=== PATIENT | female | born 1960 | race Caucasian/White ===

== ENCOUNTER 2019-12-22 14:20 | Observation (INO) | payer OTHER, SELFPAY ==
[2019-12-22] VITALS (8 sets, daily range): BP systolic 120–142; BP diastolic 60–91; PULSE 63–74; RESP 16–18; TEMP 36.7–37; O2SAT 96–99; BMI 30.1
--- NOTE | ~2019-12-22 | CT_ITS ---
EXAMINATION: CT abdomen pelvis w con DATE: 12/22/2019 19:05 INDICATION: Left lower quadrant abdominal pain. TECHNIQUE: Computed tomography (CT) of the abdomen and pelvis was performed with 100 mL Omnipaque 350 intravenous contrast. Automated exposure control and iterative reconstruction technique were employe d. The dose-length product was 417.36 mGy-cm. COMPARISON: None. FINDINGS: The visualized portions of the lung bases demonstrate mild atelectasis. No pleural effusion . The heart size is normal. No pericardial effusion. There are changes of facet at location of the st omach with the wrap above the diaphragm. There are cysts in the liver measuring up to 9 mm. The splee n, pancreas, adrenal glands, and right kidney are normal. There is a decreased left-sided contrast ne phrogram. There are cysts in left kidney measuring up to 1.5 cm. There is mild left hydronephrosis an d hydroureter. There is a 4 mm stone in left ureterovesicular junction. There is distention of the pr oximal colon, consistent with adynamic ileus. There are dilated loops of small bowel without focal tr ansition point, consistent with adynamic ileus. The appendix is normal. There are no pathologically e nlarged lymph nodes. There is no free intraperitoneal fluid. There is moderate thoracic spondylosis a nd mild lumbar spondylosis. There is a benign bone island in the sacrum. IMPRESSION: 1. 4 mm stone at left ureterovesicular junction with mild left hydronephrosis. 2. Dilated bowel without focal transition point, consistent with adynamic ileus. 3. Changes of fundoplication of the stomach with the wrap above the diaphragm. Reviewed, dictated and finalized at location A. IMPRESSION: 1. 4 mm stone at left ureterovesicular junction with mild left hydronephrosis. 2. Dilated bowel without focal transition point, consistent with adynamic ileus . 3. Changes of fundoplication of the stomach with the wrap above the diaphragm.
--- NOTE | ~2019-12-22 | XR_ITS ---
EXAMINATION: XR abdomen/kub 1V DATE: 12/22/2019 20:48 INDICATION: Kidney stone. TECHNIQUE: A supine view of the abdomen on 2 radiographs was obtained. COMPARISON: CT abdomen and pelvis 12/22/2019 FINDINGS: There are dilated loops of small bowel, consistent with adynamic ileus. There is mild left hydronephrosis. There is contrast in the bladder and left-sided collecting system. Surgical clips ove rlie the abdomen. IMPRESSION: 1. Mild left hydronephrosis. 2. Dilated small bowel, consistent with adynamic ileus. Reviewed, dictated and finalized at location A.
[2019-12-22 14:53] LABS: Basophils Percent Auto 0.3 % (0.2-1.2); Eosinophils Percent Auto 0.1 % (0-4.4); Hematocrit 36.7 % (37.0-47.0); Hemoglobin 11.9 g/dL (12.0-15.0); Immature Granulocyte Absolute 0.04 K/mm3 (0.00-0.031); Immature Granulocyte Percent A 0.4 % (0-0.5); Lymphocytes Absolute Auto 1.07 K/mm3 (0.9-3.2); Lymphocytes Percent Auto 9.6 % (18.3-44.2); Mean Corpuscular HGB Conc 32.4 g/dl (32-36); Mean Corpuscular Hemoglobin 27.2 pg (26-34); Mean Corpuscular Volume 83.8 fl (80-100); Mean Platelet Volume 9.4 fl (7.4-10.4); Monocytes Absolute Auto 0.4 K/mm3 (0.1-0.6); Monocytes Percent Auto 3.5 % (2.6-8.5); Neutrophils Absolute Auto 9.6 K/mm3 (1.3-6.7); Neutrophils Percent Auto 86.1 % (45.5-73.1); Platelet Count Result 243 k/mm3 (150-375); Red Blood Count 4.38 M/mm3 (4.2-5.4); Red Cell Distribution Width 15.5 % (11.5-14.5); White Blood Count 11.2 K/mm3 (4.5-10.0)
[2019-12-22 15:05] LABS: Alanine Aminotransferase 16 U/L (4-35); Albumin Level 4.6 g/dL (3.5-5.1); Alkaline Phosphatase 133 U/L (38-126); Aspartate Amino Transferase 32 U/L (14-36); Bilirubin,Total 0.4 mg/dL (0.2-1.3); Blood Urea Nitrogen 14 mg/dL (7-17); Calcium 9.2 mg/dL (8.4-10.2); Carbon Dioxide 22 mmol/L (22-30); Chloride 105 mmol/L (98-107); Estimated CRCL calculation 49 ml/min; Estimated Glomerular Filt Rate 57; Glucose 135 mg/dL (65-105); Lipase 203 U/L (23-300); Potassium 3.3 mmol/L (3.4-5.0); Sodium 137 mmol/L (137-145)
[2019-12-22 16:31] LABS: Add Urine Microscopic? YES; Appearance Urine Clear (Clear); Bilirubin Urine Negative (Negative); Blood Urine 2+ (Negative); Color Urine Amber (Yellow); Glucose Urine UA Negative (Negative); Ketones Urine 1+ mg/dL (Negative); Leukocyte Esterase Ur Negative LEU/UL (Negative); Mucus Urine Rare /lpf; Nitrate Urine Positive (Negative); Protein Urine Negative (Negative); RBC Urine 21-50 /hpf (0-2); Specific Grav Ur 1.016 (1.001-1.035); Squamous Epithelial Cell Urine Occasional /hpf (Few); Urobilinogen Urine Negative mg/dL (<2.0)
--- NOTE | 2019-12-22 17:50 | ED.GENADULT ---
HPI - General Adult General Chief complaint: Nausea/Vomiting/Diarrhea Stated complaint: I think I have cornona virus Time Seen by Provider: 12/22/19 17:40 History of Present Illness HPI narrative: Patient is a 59 y/o female complaining of nausea, retching for last 2 days. She states that she also has been having left lower abdominal pain since yesterday. She rates her pain as 8/10 and describes it as a sharp, stabbing pain. There is no pain radiation or alleviating factor. She states that she has chronic diarrhea due to Crohn's disease. She also request COVID testing because her work place would not let her go back to work without negative test. Related Data Home Medications Medication Instructions Recorded Confirmed Adults Multivitamin 1 tablet PO DAILY 05/05/19 05/15/19 cholecalciferol (vitamin D3) 1,000 unit PO DAILY 05/05/19 05/15/19 [Vitamin D3] meloxicam 7.5 mg tablet 7.5 mg PO BID tablet 07/01/19 Allergies Allergy/AdvReac Type Severity Reaction Status Date / Time codeine Allergy Severe Hives Verified 12/22/19 18:05 Review of Systems Constitutional: Constitutional: Denies chills, Denies fever(s), Denies headache(s) and Denies weakness Eyes: Eyes: Denies blurry vision ENT: Denies headache(s) and Denies neck pain Cardiovascular: Cardiovascular: Denies chest pain and Denies dyspnea Respiratory: Respiratory: Denies cough and Denies dyspnea Gastrointestinal: Gastrointestinal: Reports abdominal pain, Reports diarrhea, Reports nausea and Denies vomiting Genitourinary: Genitourinary: Denies hematuria and Denies dysuria Musculoskeletal: Musculoskeletal: Denies back pain and Denies neck pain Neurologic: Denies headache(s) and Denies weakness PMFSH Past Medical History Medical History Crohn's disease HTN (hypertension) Surgical History Surgical History H/O: hysterectomy History of cholecystectomy History of repair of hiatal hernia Social History Social History Smoking status: Never smoker Alcohol intake: current Gender identity (if verbalized by the patient): Female Exam Const: General: no acute distress and well developed Orientation/consciousness: oriented to person, oriented to place, oriented to time and patient oriented x3 HENMT: Head: normocephalic Ears: external ears normal General nose exam: Normal external nose present Eyes: General: appearance normal, both eyes and all related structures Conjunctivae: conjunctivae normal Neck: Neck: normal visual inspection and full ROM Chest: Chest palpation & inspection: normal inspection of the chest and no tenderness Resp: Effort & Inspection: normal respiratory effort Auscultation: clear to auscultation bilaterally Cardio: Rate: regular rate Rhythm: regular rhythm GI: GI Palp: Yes abdominal tenderness (left lower quadrant) and Yes Soft to palpation Skin: General skin exam: normal color and turgor normal Neuro: General: oriented to person, oriented to place, oriented to time and patient oriented x3 Cognition (Neuro): normal cognition Extrem: General: normal to inspection, full ROM and no pedal edema Psych: Appearance: grossly normal Mental Status: mental status grossly normal Affect: normal affect Course Consultations Consultation #1: Discussed with Dr. Borden (surgery), who agrees to consult, also recommends GI consult. Discussed with Dr. Calvo (urolgoy), who agrees to consult. Discussed with Dr. Antoine (GI), who agrees to consult. Date: 12/22/19 Consultation #2: Discussed with Dr. Lott (hospitalist), who agrees to admit. Date: 12/22/19 Time: 21:02 Vital Signs Vital signs: Vital Signs Temperature 37.0 C 12/22/19 14:40 Pulse Rate 70 12/22/19 14:40 Respiratory Rate 18 12/22/19 14:40 Blood Pressure 120/60 12/22/19 14:40 Pulse Oximetry 98
[2019-12-22] MEDS: POTASSIUM CHLORIDE 20 MEQ TABLET PO (18:04)
[2019-12-22 18:35] LABS: CRP < 0.5 mg/dL (<1.0)
[2019-12-22 18:51] LABS: Erythrocyte Sedimentation Rate 41 mm/hr (0-20)
[2019-12-22] MEDS: KETOROLAC 30 MG/ML VIAL (*BKC) IV PUSH (19:52)
[2019-12-22] MEDS: SODIUM CHLORIDE 0.9% IV 1,000 ML 999 ML IV CONT (19:53)
[2019-12-22] MEDS: ONDANSETRON INJ 4 MG/2 ML VIAL IV PUSH (20:57)
--- NOTE | 2019-12-22 22:30 | ADMGEN ---
This patient, Karon aGviria, was admitted to 3 [facility] Surg Room 310-01. Patient/family oriented to hospital policies and general routines including ID bracelet, bed and alarms, visiting hours, pain management, procedures, bathroom and other care routines, personal items, smoking policy, room service/diet, and visiting hours. Valuables list has been completed. Information on how to activate the Rapid Response Team has been discussed. Patient/Family are encouraged to report perceived risks to care and to ask questions if they do not understand what they are told or what they should do.
[2019-12-22] MEDS: SODIUM CHLORIDE 0.9% IV 1,000 ML 125 ML IV CONT (22:48)
[2019-12-23 06:00] VITALS: BP 101/49; PULSE 69; RESP 18; TEMP 37; O2SAT 98
[2019-12-23] MEDS: SODIUM CHLORIDE 0.9% IV 1,000 ML 125 ML IV CONT ×2 (06:35→14:43)
--- NOTE | 2019-12-23 07:33 | WPDURCON ---
Assessment and Plan Assessment and plan (1) Calculus of distal left ureter: Code(s): N20.1 - Calculus of ureter Status: Acute Assessment and Plan: Karon has passed a stone and is asymptomatic at this time. From a Urology standpoint she can have a diet and be discharged home. Recommend follow-up in 2 weeks with a renal ultrasound to make sure hydronephrosis has resolved. Urology Consult Note HPI Date Seen: 12/23/19 Requesting Physician: Mata Martinez PA-C Primary Care Provider: Tae Mcfarland MD Consult Narrative Narrative: Karon Gaviria is a 59 year old female who was admitted with left flank pain some nausea and emesis. Eldon was thought to have a 4 mm left UVJ calculus with hydronephrosis. She was admitted for pain control. There was also question of an ileus or some other issues. None the less at the time my evaluation this morning the patient is feeling better. She states that she passed the stone overnight and it has been sent for analysis. Patient has a history of a stone about 41 years ago. Denies any fevers or other issues at this time. Review of Systems Review of Systems: All systems reviewed & are unremarkable except as noted in HPI and below PMFSH Past Medical History Medical History Crohn's disease HTN (hypertension) Surgical History Surgical History H/O: hysterectomy History of cholecystectomy History of repair of hiatal hernia Family History Family History Mother Acute myocardial infarction Social History Social History Years smoked: 12 Smoking status: Former smoker Alcohol intake: current Substance use: former Substance use type: marijuana Gender identity (if verbalized by the patient): Female Spiritual care concerns: No Meds Home Medications and Allergies Home Medications Medication Instructions Recorded Confirmed Type Adults Multivitamin 1 tablet PO DAILY 05/05/19 12/22/19 History cholecalciferol (vitamin D3) 1,000 unit PO DAILY 05/05/19 12/22/19 History [Vitamin D3] topiramate 50 mg tablet 50 mg PO BID #60 tablet 05/28/19 12/22/19 Rx meloxicam 7.5 mg tablet 7.5 mg PO BID tablet 07/01/19 12/22/19 History amlodipine 5 mg tablet 5 mg PO DAILY #90 tablet 09/17/19 12/22/19 Rx dicyclomine 20 mg tablet 20 mg PO DAILY #90 tablet 09/17/19 12/22/19 Rx gabapentin 300 mg capsule 300 mg PO TID #270 cap 09/17/19 12/22/19 Rx hydrochlorothiazide 25 mg tablet 25 mg PO DAILY #90 tablet 09/17/19 12/22/19 Rx losartan 50 mg tablet 50 mg PO DAILY #90 tablet 09/17/19 12/22/19 Rx alprazolam 0.5 mg tablet 0.5 mg PO TID PRN #30 tablet 11/13/19 12/22/19 Rx amitriptyline 25 mg PO HS 12/22/19 12/22/19 History levothyroxine 100 mcg PO DAILY 12/22/19 12/22/19 History ondansetron HCl [Zofran] 4 mg PO Q6H PRN 12/22/19 12/22/19 History quetiapine [Seroquel] 50 mg PO HS 12/22/19 12/22/19 History Allergies Allergy/AdvReac Type Severity Reaction Status Date / Time codeine Allergy Severe Hives Verified 12/22/19 18:05 Vital Signs Vital Signs - 24 hr 12/22/19 14:40 12/22/19 19:30 12/22/19 20:00 Temperature 37.0 C Pulse Rate 70 72 73 Respiratory Rate 18 16 16 Blood Pressure 120/60 142/89 H 130/78 Pulse Oximetry 98 96 97 12/22/19 20:30 12/22/19 21:02 12/22/19 22:05 Temperature Pulse Rate 74 72 73 Respiratory Rate 16 16 16 Blood Pressure 134/83 129/89 133/91 H Pulse Oximetry 97 97 97 12/22/19 22:20 12/23/19 06:00 Temperature 36.7 C 37.0 C Pulse Rate 63 69 Respiratory Rate 18 18 Blood Pressure 124/75 101/49 L Pulse Oximetry 99 98 Exam Const: General: no acute distress HENMT: General nose exam: Normal nares present Eyes: General: appearance normal, both eyes and all related structures Resp:
[2019-12-23 08:00] VITALS: BP 123/72
[2019-12-23 08:35] LABS: Basophils Percent Auto 0.4 % (0.2-1.2); Eosinophils Absolute Auto 0.1 K/mm3 (0-0.3); Eosinophils Percent Auto 1.1 % (0-4.4); Hematocrit 32.5 % (37.0-47.0); Hemoglobin 10.6 g/dL (12.0-15.0); Immature Granulocyte Absolute 0.01 K/mm3 (0.00-0.031); Immature Granulocyte Percent A 0.2 % (0-0.5); Lymphocytes Absolute Auto 2.04 K/mm3 (0.9-3.2); Lymphocytes Percent Auto 38.4 % (18.3-44.2); Mean Corpuscular HGB Conc 32.6 g/dl (32-36); Mean Corpuscular Hemoglobin 27.2 pg (26-34); Mean Corpuscular Volume 83.5 fl (80-100); Mean Platelet Volume 9.6 fl (7.4-10.4); Monocytes Absolute Auto 0.4 K/mm3 (0.1-0.6); Monocytes Percent Auto 7.2 % (2.6-8.5); Neutrophils Absolute Auto 2.8 K/mm3 (1.3-6.7); Neutrophils Percent Auto 52.7 % (45.5-73.1); Platelet Count Result 192 k/mm3 (150-375); Red Blood Count 3.89 M/mm3 (4.2-5.4); Red Cell Distribution Width 15.8 % (11.5-14.5); White Blood Count 5.3 K/mm3 (4.5-10.0)
[2019-12-23 08:52] LABS: Blood Urea Nitrogen 11 mg/dL (7-17); Calcium 8.3 mg/dL (8.4-10.2); Carbon Dioxide 25 mmol/L (22-30); Chloride 108 mmol/L (98-107); Estimated CRCL calculation 54 ml/min; Estimated Glomerular Filt Rate > 60; Glucose 98 mg/dL (65-105); Magnesium 1.8 mg/dL (1.6-2.3); Potassium 3.1 mmol/L (3.4-5.0); Sodium 138 mmol/L (137-145)
[2019-12-23] MEDS: LEVOTHYROXINE SODIUM 100 MCG TABLET PO (09:26)
[2019-12-23] MEDS: amLODIPine BESYLATE 5 MG TABLET PO (09:26)
[2019-12-23] MEDS: MULTIVITAMINS /C LUTEIN (CENTRUM SILVER) TABLET *BKC 1 TAB PO (09:26)
[2019-12-23] MEDS: CHOLECALCIFEROL 1,000 UNIT TABLET 1000 UNITS PO (09:26)
[2019-12-23] MEDS: GABAPENTIN 300 MG CAPSULE PO ×3 (09:26→17:05)
[2019-12-23] MEDS: MELOXICAM 7.5 MG TABLET PO ×2 (09:26→17:05)
[2019-12-23] MEDS: hydroCHLOROthiazide 25 MG TABLET PO (09:26)
[2019-12-23] MEDS: TOPIRAMATE 25 MG TABLET 50 MG PO ×2 (09:26→17:05)
--- NOTE | 2019-12-23 10:33 | PM.IMHP ---
H&P: HPI History of Present Illness Chief complaint: left ureteralithiasis Narrative: CC: Nausea and retching x1 day, LLQ abdominal pain x 2 days Karon Gaviria is a 59 year old female with history of HTN and known Crohn's disease who presented to the ER from home on 12/21 with complaints of LLQ abdominal pain and nausea/retching. Patient states she was in her normal state of health on 12/19 when she started developing LLQ abdominal pain overnight/early 12/21. She states yesterday she also developed nausea and retching without any bloody/coffee ground emesis. She states these symptoms have since resolved. Her abdominal pain was sharp/stabbing and did not radiate. Nothing alleviated her pain. Her pain gradually worsened to 8/10 at its worse yesterday, but today states she has no pain. She notes that she passed a kidney stone which was found on CT imaging of the abd/pelvis yesterday in the ER (4mm left ureterovesicular junction stone). Also noted on the CT imaging of abd/pelvis were findings suggestive of adynamic ileus (Dilated bowel without focal transition point). As above, her nausea and retching have subsided. She does not feel particularly bloated today. No BM since 12/19, but notes she is passing flatus. She also notes not eating that much since the development of her symptoms. She denies any other sick contacts at home. No subjective fevers/chills. No other associated symptoms. Denies myalgias/arthralgias, headaches, dizziness, lightheadedness, cp/palpitations, sob/cough, current n/v/d, current abd pain, dysuria, hematuria, cloudy urine, calf pain/swelling. Review of Systems Review of Systems: All systems reviewed & are unremarkable except as noted in HPI and below PMFSH Past Medical History Medical History (Updated 12/23/19 @ 10:53 by Mata Martinez PA-C) Crohn's disease HTN (hypertension) Hypothyroidism associated with surgical procedure Insomnia Surgical History Surgical History H/O: hysterectomy History of cholecystectomy History of repair of hiatal hernia History of thyroidectomy Family History Family History Mother Acute myocardial infarction Social History Social History Social History: Patient lives at home with , Ed, whom she designates as her surrogate MDM. She wishes to be listed as a Full Code. Years smoked: 12 Smoking status: Former smoker Alcohol intake: current Alcohol use details: patient drinks about 2 time per month. Occasional Substance use: former Substance use type: marijuana Gender identity (if verbalized by the patient): Female Spiritual care concerns: No Meds Home Medications and Allergies Home Medications Medication Instructions Recorded Confirmed Type Adults Multivitamin 1 tablet PO DAILY 05/05/19 12/22/19 History cholecalciferol (vitamin D3) 1,000 unit PO DAILY 05/05/19 12/22/19 History [Vitamin D3] topiramate 50 mg tablet 50 mg PO BID #60 tablet 05/28/19 12/22/19 Rx meloxicam 7.5 mg tablet 7.5 mg PO BID tablet 07/01/19 12/22/19 History amlodipine 5 mg tablet 5 mg PO DAILY #90 tablet 09/17/19 12/22/19 Rx dicyclomine 20 mg tablet 20 mg PO DAILY #90 tablet 09/17/19 12/22/19 Rx gabapentin 300 mg capsule 300 mg PO TID #270 cap 09/17/19 12/22/19 Rx hydrochlorothiazide 25 mg tablet 25 mg PO DAILY #90 tablet 09/17/19 12/22/19 Rx losartan 50 mg tablet 50 mg PO DAILY #90 tablet 09/17/19 12/22/19 Rx alprazolam 0.5 mg tablet 0.5 mg PO TID PRN #30 tablet 11/13/19 12/22/19 Rx amitriptyline 25 mg PO HS 12/22/19 12/22/19 History levothyroxine 100 mcg PO DAILY 12/22/19 12/22/19 History ondansetron HCl [Zofran] 4 mg PO Q6H PRN 12/22/19 12/22/19 History quetiapine [Seroquel] 50 mg PO HS 12/22/19 12/22/19 History Allergies Allergy/AdvReac Type Severity Reaction Status Date / Time codeine Allergy Severe
--- NOTE | 2019-12-23 11:45 | PM.CNGS ---
Assessment and Plan Assessment and plan (1) Adynamic ileus: Code(s): K56.0 - Paralytic ileus Status: Acute Assessment and Plan: CT scan reviewed and discussed with the patient. She has evidence of a stone at the left ureterovesicular junction with mild left hydronephrosis and also evidence of an ileus. The patient has passed the stone and has had significant clinical improvement. She is having no abdominal pain at the time of my evaluation and her abdominal exam is benign. GI has been consulted due to her history of Crohn's and their recommendations are appreciated. At this time, there is no indication for surgery. Will allow her to start advancing her diet as tolerated. Will also add Miralax to help stimulate her bowels. Thank you for allowing us to see the patient in consultation. (2) Calculus of distal left ureter: Code(s): N20.1 - Calculus of ureter Status: Acute Assessment and Plan: Urology consulted and recommendations noted. Patient has passed a stone and is feeling much better. This seems to be her primary issue. (3) Crohn's disease: Code(s): K50.90 - Crohn's disease, unspecified, without complications Status: Acute Assessment and Plan: Receives Remicade infusions every 4 weeks. Last received about 4 days ago. Gastroenterology consulted and appreciate recommendations. (4) HTN (hypertension): Code(s): I10 - Essential (primary) hypertension Status: Acute (5) Immunosuppression due to drug therapy: Code(s): Z79.899 - Other residential (current) drug therapy Status: Acute Additional Plan Discussed the patient's case and plan of care with Dr. Borden. History of Present Illness Consult details Consult date: 12/23/19 Reason for consult: other (Ileus) Requesting physician: Karen Crouch MD Narrative: This is a 59-year-old with a history of Crohn's disease on immunosuppressive therapy, hypertension, and hyperlipidemia, who presented to the emergency department for evaluation of left-sided abdominal pain, nausea, and vomiting. The patient reports a sudden onset of left-sided abdominal pain radiating to her left flank yesterday morning. She had went to work, and the pain continued to worsen. She then developed nausea with vomiting and dry heaving. She also reports chills but no fever. Due to the persistent abdominal pain, the patient presented to the emergency department for further evaluation. CT scan of the abdomen and pelvis showed a 4 mm stone at the left ureterovesicular junction with mild left hydronephrosis, dilated bowel without focal transition point consistent with an adynamic ileus, and changes of a fundoplication of the stomach with the wrap above the diaphragm. Labs revealed white blood cell count of 11,200. Urinalysis showed positive nitrates, positive blood, positive ketones, and WBC 4-6. The patient was admitted to the hospitalist service. Urology was consulted and has evaluated the patient. She apparently passed a stone early this morning, which has been sent for pathology. Our service was consulted by the ED physician for the ileus found on the CT scan. The patient is being seen on the medical floor. She reports feeling significantly better with no abdominal pain at this time. She states she is still slightly tender on the left side. Denies any more nausea, vomiting, or bloating. Reports flatus this morning. Does report a few episodes of diarrhea on Sunday, but since then has only had 1 small bowel movement yesterday morning that was more formed. Denies fever or chills. No other complaints at this time. Receives Remicade every 4 weeks for her Crohn's, with the last infusion 4 days ago. Reportedly sees a cover seamer at [facility] in [place]. Review of Systems Review of Systems: All systems reviewed & are unremarkable except as noted in HPI and below Constitutional: Constitutional: Reports as per HPI, Reports chills, Denies ex
[2019-12-23] MEDS: POTASSIUM CHLORIDE 20 MEQ TABLET 40 MEQ PO (13:03)
[2019-12-23] MEDS: POTASSIUM CHLORIDE 20 MEQ TABLET PO (13:04)
[2019-12-23 14:00] VITALS: BP 113/77; PULSE 72; RESP 16; TEMP 36.9; O2SAT 96
[2019-12-23 14:52] LABS: SARS-CoV-2 RNA PCR Negative
[2019-12-23] MEDS: POTASSIUM CHLORIDE 20 MEQ TABLET 60 MEQ (16:01)
[2019-12-23 17:00] VITALS: BP 118/74
[2019-12-23] MEDS: polyethylene glycoL 3350 17 GM POWD.PACK PO (17:05)
[2019-12-23] MEDS: LOSARTAN POTASSIUM 50 MG TABLET PO (17:05)
--- NOTE | 2019-12-23 18:13 | WPDGICN ---
Assessment and Plan Assessment and plan (1) Crohn's disease: Code(s): K50.90 - Crohn's disease, unspecified, without complications Status: Acute Assessment and Plan: egd and colonoscopy 2 weeks ago, unremarkable findings without active colitis she is set up with GI doctor in [facility] and getting remicade infusions no evidence of Crohn's flare now, symptoms related to kidney stone (2) Calculus of distal left ureter: Code(s): N20.1 - Calculus of ureter Status: Acute Assessment and Plan: already passed, doing better (3) Adynamic ileus: Code(s): K56.0 - Paralytic ileus Status: Acute Assessment and Plan: tolerating diet, ok to advance will sign off (4) Immunosuppression due to drug therapy: Code(s): Z79.899 - Other terminal superintendent (current) drug therapy Status: Acute GI Consult Note Consult date/time: 12/23/19 18:13 Reason for consult: abdominal pain, ileus, history of Crohn's HPI: Karon Gaviria is a 59 year old female history with Crohn's disease who has been on remicade for more than 15 years and seeing GI in [facility] in fact had her colonoscopy and EGD 2 weeks ago with unremarkable biopsies of esophagus, duodenum, colon and ileum, had mild gastritis and normal fundoplication (records reviewed). She has chronic diarrhea since diagnosed with Crohn's. She came to ER with new onset of severe pain in left flank and llq, sharp type and also nausea. CT scan showed 4 mm stone at left ureterovesicular junction with mild left hydronephrosis, dilated bowel without focal transition point, consistent with adynamic ileus, changes of fundoplication of the stomach with the wrap above the diaphragm. Surgery evaluted patient. Earlier today she just passed kidney stone in urine and is feeling much better, pain is gone and she is tolerating liquid diet, no more nausea. Review of Systems Constitutional: Constitutional: Denies headache(s) and Denies weakness Eyes: Eyes: Denies blurry vision ENT: Reports Normal hearing present, Denies headache(s) and Denies neck pain Cardiovascular: Cardiovascular: Denies chest pain and Denies dyspnea Respiratory: Respiratory: Denies dyspnea Gastrointestinal: Gastrointestinal: Reports no additional gastrointestinal complaints Genitourinary: Genitourinary: Reports flank pain Musculoskeletal: Musculoskeletal: Denies neck pain Integumentary/Breasts: Skin/Breast: Denies dry skin Neurologic: Reports Normal hearing present, Denies headache(s) and Denies weakness Psychiatric: Psychiatric: Denies anxiety Endocrine: Endocrine: Denies change in body appearance Hematologic/Lymphatic: Hematologic/Lymphatic: Denies easy bleeding Allergic/Immunologic: Allergic/Immunologic: Denies urticaria PMFSH Past Medical History Medical History Crohn's disease HTN (hypertension) Hypothyroidism associated with surgical procedure Insomnia Surgical History Surgical History H/O: hysterectomy Open KLARISSA with bilateral SPO History of cholecystectomy Cholecystectomy during hiatal hernia repair History of repair of hiatal hernia Open hiatal hernia repair 8-9 years ago. History of thyroidectomy Family History Family History Mother Acute myocardial infarction Social History Social History Social History: Patient lives at home with , Ed, whom she designates as her surrogate MDM. She wishes to be listed as a Full Code. PCP: Dr. Mcfarland Years smoked: 12 Smoking status: Former smoker Alcohol intake: current Alcohol use details: patient drinks about 2 times per month. Occasional Substance use: former Substance use type: marijuana Living arrangements: with family Gender identity (if verbalized by the patient): Female Spi
[2019-12-23] MEDS: AMITRIPTYLINE HCL 25 MG TABLET PO (20:58)
[2019-12-23] MEDS: QUEtiapine FUMARATE 25 MG TABLET 50 MG PO (20:58)
[2019-12-23 22:00] VITALS: BP 117/75; PULSE 72; RESP 18; TEMP 36.8; O2SAT 96
[2019-12-24] MEDS: SODIUM CHLORIDE 0.9% IV 1,000 ML 125 ML IV CONT (04:18)
[2019-12-24] MEDS: LEVOTHYROXINE SODIUM 100 MCG TABLET PO (05:05)
[2019-12-24 05:34] VITALS: BP 103/61; PULSE 57; RESP 18; TEMP 36.4; O2SAT 98
[2019-12-24 06:31] LABS: Basophils Percent Auto 0.5 % (0.2-1.2); Eosinophils Absolute Auto 0.1 K/mm3 (0-0.3); Eosinophils Percent Auto 2.9 % (0-4.4); Hematocrit 33.1 % (37.0-47.0); Hemoglobin 10.7 g/dL (12.0-15.0); Immature Granulocyte Absolute 0.01 K/mm3 (0.00-0.031); Immature Granulocyte Percent A 0.2 % (0-0.5); Lymphocytes Absolute Auto 2.27 K/mm3 (0.9-3.2); Lymphocytes Percent Auto 54.6 % (18.3-44.2); Mean Corpuscular HGB Conc 32.3 g/dl (32-36); Mean Corpuscular Hemoglobin 27.2 pg (26-34); Mean Corpuscular Volume 84.2 fl (80-100); Mean Platelet Volume 9.5 fl (7.4-10.4); Monocytes Absolute Auto 0.3 K/mm3 (0.1-0.6); Monocytes Percent Auto 7.9 % (2.6-8.5); Neutrophils Absolute Auto 1.4 K/mm3 (1.3-6.7); Neutrophils Percent Auto 33.9 % (45.5-73.1); Platelet Count Result 193 k/mm3 (150-375); Red Blood Count 3.93 M/mm3 (4.2-5.4); Red Cell Distribution Width 15.7 % (11.5-14.5); White Blood Count 4.2 K/mm3 (4.5-10.0)
[2019-12-24 06:42] LABS: Blood Urea Nitrogen 6 mg/dL (7-17); Calcium 8.4 mg/dL (8.4-10.2); Carbon Dioxide 24 mmol/L (22-30); Chloride 109 mmol/L (98-107); Estimated CRCL calculation 60 ml/min; Estimated Glomerular Filt Rate > 60; Glucose 85 mg/dL (65-105); Magnesium 1.6 mg/dL (1.6-2.3); Potassium 3.7 mmol/L (3.4-5.0); Sodium 136 mmol/L (137-145)
--- NOTE | 2019-12-24 07:36 | PM.PNGS ---
Progress Note: A&P Assessment and Plan (1) Abnormal CT of the abdomen: Code(s): R93.5 - Abnormal findings on diagnostic imaging of other abdominal regions, including retroperitoneum Status: Acute Assessment and Plan: No symptoms to suggest ileus or obstruction. Advance diet as tolerated. Will sign off. (2) Calculus of distal left ureter: Code(s): N20.1 - Calculus of ureter Status: Acute Subjective Subjective Date/Time Seen: 12/24/19 07:36 No abdominal pain. Bowels moving. Exam GI: Inspection: normal to inspection GI Palp: Yes Soft to palpation, No Tenderness to palpation present (GI) and No Guarding due to palpation present (GI) Auscultation: normal bowel sounds Objective Data Vital Signs Vital Signs: Vital Signs - 24 hr 12/23/19 08:00 12/23/19 14:00 12/23/19 17:00 Temperature 36.9 C Pulse Rate 72 Respiratory Rate 16 Blood Pressure 123/72 113/77 118/74 Pulse Oximetry 96 12/23/19 22:00 12/24/19 05:34 Temperature 36.8 C 36.4 C L Pulse Rate 72 57 L Respiratory Rate 18 18 Blood Pressure 117/75 103/61 Pulse Oximetry 96 98 Intake/Output Intake/Output: Intake & Output 12/21/19 12/22/19 12/23/19 12/24/19 23:59 23:59 23:59 23:59 Intake Total 2049 3690 200 Output Total 1200 1100 Balance 2049 2490 -900 Meds/Results Medications: Active Medications Generic Name Dose Route Start Last Admin Trade Name Freq PRN Reason Stop Dose Admin Alprazolam 0.5 mg 12/23/19 07:54 Xanax PO TID PRN anxiety Amitriptyline HCl 25 mg 12/23/19 21:00 12/23/19 20:58 Elavil PO 25 mg HS SHANKAR Administration Amlodipine Besylate 5 mg 12/23/19 09:00 12/23/19 09:26 Norvasc PO 5 mg DAILY SHANKAR Administration Fentanyl Citrate 50 mcg 12/22/19 21:10 Sublimaze IV PUSH Q4H PRN Pain Rated 7-10 Gabapentin 300 mg 12/23/19 09:00 12/23/19 17:05 Neurontin PO 300 mg TID SHANKAR Administration Hydrochlorothiazide 25 mg 12/23/19 09:00 12/23/19 09:26 Hydrochlorothiazide PO 25 mg DAILY SHANKAR Administration Sodium Chloride 1,000 mls @ 75 mls/hr 12/22/19 21:05 12/24/19 04:18 Normal Saline Iv IV CONT 125 mls/hr .[id number] SHANKAR Administration Levothyroxine Sodium 100 mcg 12/23/19 08:15 12/24/19 05:05 Synthroid PO 100 mcg DAILY@0630 SHANKAR Administration Losartan Potassium 50 mg 12/23/19 09:00 12/23/19 17:05 Cozaar PO 50 mg DAILY SHANKAR Administration Meloxicam 7.5 mg 12/23/19 09:00 12/23/19 17:05 Mobic PO 7.5 mg BID SHANKAR Administration Multivitamins/Minerals 1 tab 12/23/19 09:00 12/23/19 09:26 Centrum Silver PO 1 tab DAILY SHANKAR Administration Polyethylene Glycol 17 gm 12/23/19 13:51 12/23/19 17:05 Miralax PO 17 gm QAM SHANKAR Administration Quetiapine Fumarate 50 mg 12/23/19 21:00 12/23/19 20:58 Seroquel PO 50 mg HS SHANKAR Administration Topiramate 50 mg 12/23/19 09:00 12/23/19 17:05 Topamax PO 50 mg BID SHANKAR Administration Vitamin D 1,000 unit 12/23/19 09:00 12/23/19 09:26 Vitamin D PO 1,000 unit DAILY SHANKAR Administration Radiology Results: ITS Impressions Abdomen/Pelvis CT 12/22/19 19:06 IMPRESSION: 1. 4 mm stone at left ureterovesicular junction with mild left hydronephrosis. 2. Dilated bowel without focal transition point, consistent with adynamic ileus. 3. Changes of fundoplication of the stomach with the wrap above the diaphragm. Abdomen X-Ray 12/22/19 20:55 IMPRESSION: 1. Mild left hydronephrosis. 2. Dilated small bowel, consistent with adynamic ileus. Labs Labs: Laboratory Results - last 24 hr 12/22/19 12/23/19 12/23/19 18:40 08:28 08:28 WBC 5.3 RBC 3.89 L Hgb 10.6 L Hct 32.5 L MCV 83.5 MCH 27.2 MCHC 32.6 RDW 15.8 H Plt Count 192 MPV 9.6 Immature Gran % (Auto) 0.2 Neut % (Auto) 52.7 Lymph % (Auto) 38.4 [place] % (Auto) 7.2 Eos % (Auto) 1.1 Baso % (
[2019-12-24] MEDS: MULTIVITAMINS /C LUTEIN (CENTRUM SILVER) TABLET *BKC 1 TAB PO (08:37)
[2019-12-24] MEDS: GABAPENTIN 300 MG CAPSULE PO (08:38)
[2019-12-24] MEDS: MELOXICAM 7.5 MG TABLET PO (08:38)
[2019-12-24] MEDS: amLODIPine BESYLATE 5 MG TABLET PO (08:38)
[2019-12-24] MEDS: TOPIRAMATE 25 MG TABLET 50 MG PO (08:38)
[2019-12-24] MEDS: hydroCHLOROthiazide 25 MG TABLET PO (08:38)
[2019-12-24] MEDS: polyethylene glycoL 3350 17 GM POWD.PACK PO (08:39)
[2019-12-24] MEDS: CHOLECALCIFEROL 1,000 UNIT TABLET 1000 UNITS PO (08:39)
--- NOTE | 2019-12-24 12:03 | PM.DS ---
DS: Admitting Diagnosis Admitting Diagnosis Admitting Diagnosis: Calculus of ureter DS: Discharge Diagnosis Discharge Diagnosis (1) Adynamic ileus: Code(s): K56.0 - Paralytic ileus Status: Acute Assessment and Plan: CT abd/pelvis suggestive of adynamic ileus. Multiple BMs since admission; appears to have return of bowel function. N/V/retching has resolved as well as abd pain. Patient tolerating PO on FLD. General Surgery and GI have been consulted from the ER; appreciate recommendations. Okay for discharge from their standpoint Will have her advance her diet to soft diet today and discharge this afternoon if tolerating. Patient comfortable with plan Encourage ambulation Will hold home Bentyl as this may cause ileus. Will resume at discharge F/u with PCP (2) Calculus of distal left ureter: Code(s): N20.1 - Calculus of ureter Status: Acute Assessment and Plan: Patient has apparently passed stone. Okay for discharge from Urology standpoint; appreciate recommendations F/u with Urology as needed F/u with PCP (3) HTN (hypertension): Code(s): I10 - Essential (primary) hypertension Status: Acute Assessment and Plan: BP well controlled at 100s sys this morning Will continue home antihypertensives (4) Hypothyroidism associated with surgical procedure: Code(s): E89.0 - Postprocedural hypothyroidism Status: Acute Assessment and Plan: TSH, free t4 WNL. T3 pending at time of discharge Continue home levothyroxine (5) Insomnia: Code(s): G47.00 - Insomnia, unspecified Status: Acute Assessment and Plan: Continue home medications (6) Crohn's disease: Code(s): K50.90 - Crohn's disease, unspecified, without complications Status: Acute Assessment and Plan: Will hold Bentyl for now; will resume at discharge DS: Summary Hospital Course Reason for hospitalization: left ureteralithiasis; adynamic ileus Hospital Course: Patient is a 59 yo F with history of HTN and known Crohn's disease who presented to the ER from home on 12/21 with complaints of LLQ abdominal pain and nausea/retching. While in the ED, patient was found to have 4mm stone at left ureterovesicular junction with mild left hydronephrosis and findings consistent of adynamic ileus on CT of abd/pelvis. Patient admitted under this setting. Please see H&P for further details. Presenting VS: Temp Pulse Resp BP Pulse Ox 98.6 F 70 18 120/60 98 12/22/19 14:40 12/22/19 14:40 12/22/19 14:40 12/22/19 14:40 12/22/19 14:40 Presenting Pertinent labs: WBC 11.2k, K 3.3. UA shows 1 + ketones, 2+ blood, positive nitrate, 21-50 RBC, 4-6 WBC. COVID testing was negative. CBC, chemistry, UA otherwise unremarkable Micro: none Imaging: Abdomen/Pelvis CT 12/22/19 19:06 IMPRESSION: 1. 4 mm stone at left ureterovesicular junction with mild left hydronephrosis. 2. Dilated bowel without focal transition point, consistent with adynamic ileus. 3. Changes of fundoplication of the stomach with the wrap above the diaphragm. Abdomen X-Ray 12/22/19 20:55 IMPRESSION: 1. Mild left hydronephrosis. 2. Dilated small bowel, consistent with adynamic ileus. ECG: none Patient was admitted to the hospitalist service for further evaluation for left ureterovesicular junction stone and adynamic ileus; Dr. Calvo (Urology) was consulted from ER for left ureter stone, General Surgery and Dr. Lujan (GI) were consulted from the ER for adynamic ileus. By the following day of presentation, patient was felt to have passed the stone as she was asymptomatic by time of Urology evaluation; she was cleared for discharge from Urology standpoint and follow up with them in 2 weeks
[2019-12-24 12:24] LABS: Total Triiodothyronine (T3) 0.73 NG/ML (0.97-1.69)
[2019-12-24 14:00] VITALS: BP 134/72; PULSE 89; RESP 18; TEMP 36.6; O2SAT 98
== END 2019-12-24 14:33 | disposition home or self-care (01) ==
LOC: ANHED 21:47 → ANH3MEDSUR 21:49
PROVIDERS: Emergency Medicine; Physician Assistant; Admitting Provider Internal Medicine; Emergency Provider Emergency Medicine; PCP Emergency Medicine; Visit Provider Hospitalist
DX: K56.0 Paralytic ileus (principal); N13.2 Hydronephrosis with renal and ureteral calculous obstruction; N39.0 Urinary tract infection, site not specified; K50.90 Crohn's disease, unspecified, without complications; I10 Essential (primary) hypertension; E89.0 Postprocedural hypothyroidism; G47.00 Insomnia, unspecified; Z87.891 Personal history of nicotine dependence; Z79.899 Other long term (current) drug therapy
CPT/HCPCS: 36415; 74018; 74177; 80048; 80053; 81001; 82365; 83690; 83735; 84439; 84443; 84480; 85025; 85652; 86140; 87635; 88300; 96360; 96361; 96365; 96375; 99285; A9270; C9803; G0378; J0696; J1885; J2405; J7030; Q9967; U0003

== ENCOUNTER 2021-05-09 13:49 | Emergency (ER) | payer OTHER, SELFPAY ==
--- NOTE | ~2021-05-09 | CT_ITS ---
EXAMINATION: CT abdomen pelvis w con DATE: 05/09/2021 19:37 INDICATION: Left abdominal pain. TECHNIQUE: Computed tomography (CT) of the abdomen and pelvis was performed with 100 mL Omnipaque 350 intravenous contrast. Automated exposure control and iterative reconstruction technique were employe d. The dose-length product was 463.54 mGy-cm. COMPARISON: CT abdomen and pelvis 12/22/2019 FINDINGS: The visualized portions of the lung bases demonstrate mild atelectasis and mild chronic jose eduardo g disease. No pleural effusion. The heart size is normal. No pericardial effusion. There is a small s liding hiatal hernia. There are surgical clips around the diaphragmatic hiatus. There are cysts in th e liver measuring up to 9 mm. There is mild intrahepatic biliary duct dilatation status post cholecys tectomy. The spleen, pancreas, adrenal glands, and right kidney are normal. There are cysts in left k idney measuring up to 15 mm. There is a 2 mm stone in left kidney. There is a delayed left-sided cont rast nephrogram. There is mild left hydronephrosis and hydroureter. There is a 3 mm stone at left ure terovesicular junction. There are no dilated loops of bowel. The appendix is normal. There are no pat hologically enlarged lymph nodes. There is no free intraperitoneal fluid. There is a benign bone keri nd in the sacrum. There is mild lumbar spondylosis and severe thoracic spondylosis. IMPRESSION: 1. 3 mm at left ureterovesicular junction with mild left hydronephrosis and hydroureter. 2. 2 mm nonobstructing left kidney stone. 3. Small sliding hiatal hernia with surgical changes. Reviewed, dictated and finalized at location A. UNTANCY PROFESSOR IMPRESSION: 1. 3 mm at left ureterovesicular junction with mild left hydronephrosis and hyd roureter. 2. 2 mm nonobstructing left kidney stone. 3. Small sliding hiatal hernia with surgical changes.
[2021-05-09 14:17] VITALS: BP 127/70; PULSE 65; RESP 18; TEMP 36.3; O2SAT 98
[2021-05-09 14:41] LABS: Basophils Percent Auto 0.6 % (0.2-1.2); Eosinophils Absolute Auto 0.1 K/mm3 (0-0.3); Eosinophils Percent Auto 2.1 % (0-4.4); Hematocrit 37.9 % (37.0-47.0); Hemoglobin 12.9 g/dL (12.0-15.0); Immature Granulocyte Absolute 0.02 K/mm3 (0.00-0.031); Immature Granulocyte Percent A 0.3 % (0-0.5); Lymphocytes Absolute Auto 1.78 K/mm3 (0.9-3.2); Lymphocytes Percent Auto 26.8 % (18.3-44.2); Mean Corpuscular Hemoglobin 29.1 pg (26-34); Mean Corpuscular Volume 85.4 fl (80-100); Mean Platelet Volume 9.4 fl (7.4-10.4); Monocytes Absolute Auto 0.4 K/mm3 (0.1-0.6); Monocytes Percent Auto 5.7 % (2.6-8.5); Neutrophils Absolute Auto 4.3 K/mm3 (1.3-6.7); Neutrophils Percent Auto 64.5 % (45.5-73.1); Platelet Count Result 264 k/mm3 (150-375); Red Blood Count 4.44 M/mm3 (4.2-5.4); Red Cell Distribution Width 14.2 % (11.5-14.5); White Blood Count 6.7 K/mm3 (4.5-10.0)
[2021-05-09 15:14] LABS: Add Urine Microscopic? YES; Appearance Urine Cloudy (Clear); Bacteria Urine Trace /hpf; Bilirubin Urine Negative (Negative); Blood Urine 3+ (Negative); Calcium Oxalate Crystals Urine Present /hpf; Color Urine Yellow (Yellow); Glucose Urine UA Negative (Negative); Ketones Urine Negative (Negative); Leukocyte Esterase Ur Negative LEU/UL (Negative); Mucus Urine Few /lpf; Nitrate Urine Negative (Negative); Protein Urine 1+ mg/dL (Negative); RBC Urine >75 /hpf (0-2); Squamous Epithelial Cell Urine Many /hpf (Few); Urobilinogen Urine Negative mg/dL (<2.0); WBC Urine 16-20 /hpf
[2021-05-09 15:36] LABS: Alanine Aminotransferase 19 U/L (4-35); Albumin Level 4.9 g/dL (3.5-5.1); Alkaline Phosphatase 110 U/L (38-126); Anion Gap 12 mmol/L (8-16); Aspartate Amino Transferase 29 U/L (14-36); Bilirubin,Total 0.5 mg/dL (0.2-1.3); Blood Urea Nitrogen 13 mg/dL (7-17); Calcium 9.8 mg/dL (8.4-10.2); Carbon Dioxide 21 mmol/L (22-30); Chloride 101 mmol/L (98-107); Estimated CRCL calculation 53 ml/min; Estimated Glomerular Filt Rate > 60; Glucose 124 mg/dL (65-110); Lipase 313 U/L (23-300); Potassium 3.3 mmol/L (3.4-5.0); Sodium 134 mmol/L (137-145)
[2021-05-09 17:43] VITALS: BP 143/83; PULSE 76; RESP 18; O2SAT 100
--- NOTE | 2021-05-09 18:10 | ED.ABDPAIN ---
HPI - Abdominal Pain General Chief Complaint: Abdominal Pain Stated Complaint: Abdominal pain/vomiting. Time Seen by Provider: 05/09/21 17:47 Source: patient Mode of arrival: ambulatory Limitations: no limitations History of Present Illness HPI narrative: Patient presents for evaluation of left-sided abdominal pain. She states last night she had an episode of diarrhea and thought that she may be having a Crohn's flare. At that time she noted decreased urinary output. This morning she woke from sleep with LLQ pain. She states pain has been constant since that time, progressively worsening. She describes the pain as sharp, without numerical rating with radiation into left lower back. She has experienced nausea without vomiting. She has experienced hot flashes and chills. She states her current symptoms are consistent with those experienced in past with kidney stones. Surgical history includes total hysterectomy, hiatal hernia repair, and cholecystectomy. Related Data Home Medications Medication Instructions Recorded Confirmed Adults Multivitamin 1 tablet PO DAILY 05/05/19 12/22/19 cholecalciferol (vitamin D3) 1,000 unit PO DAILY 05/05/19 12/22/19 [Vitamin D3] meloxicam 7.5 mg tablet 7.5 mg PO BID tablet 07/01/19 12/22/19 ondansetron HCl [Zofran] 4 mg PO Q6H PRN 12/22/19 12/22/19 Allergies Allergy/AdvReac Type Severity Reaction Status Date / Time codeine Allergy Severe Hives Verified 12/22/19 18:05 Review of Systems Review of Systems: CONSTITUTIONAL: Reports hot flashes and chills. EYES: Denies visual changes, redness, or discharge. ENT: Denies rhinorrhea, congestion, sore throat, or otalgia. CARDIOVASCULAR: Denies chest pain, palpitations, or edema. RESPIRATORY: Denies cough or dyspnea. GASTROINTESTINAL: Reports left-sided abdominal pain, nausea without vomiting, and diarrhea GENITOURINARY: Reports decreased urinary output. Denies dysuria or hematuria. SKIN: Denies rash or itching. MUSCULOSKELETAL: Reports left sided low back pain. Denies joint pain, or myalgia. NEUROLOGIC: Denies headache, numbness, dizziness, or weakness. PSYCHIATRIC: Denies anxiety or depression. [facility] Past Medical History Medical History Crohn's disease HTN (hypertension) Hypothyroidism associated with surgical procedure Insomnia Kidney stone Surgical History Surgical History H/O: hysterectomy Open KLARISSA with bilateral SPO History of cholecystectomy Cholecystectomy during hiatal hernia repair History of repair of hiatal hernia Open hiatal hernia repair 8-9 years ago. History of thyroidectomy Family History Family History Mother Acute myocardial infarction Social History Social History Social History: Patient lives at home with , Ed, whom she designates as her surrogate MDM. She wishes to be listed as a Full Code. PCP: Dr. Mcfarland Years smoked: 12 Smoking status: Former smoker Alcohol intake: current Alcohol use details: patient drinks about 2 times per month. Occasional Substance use: former Substance use type: marijuana Gender identity (if verbalized by the patient): Female Spiritual care concerns: No Exam Narrative: GENERAL: Well-appearing, well-nourished, and in no acute distress. HEAD: Normocephalic, atraumatic. EYES: PERRLA and EOMI. ENT: Nares clear, no rhinorrhea or epistaxis. Mucous membranes moist. Oropharynx without tonsillar hypertrophy exudate or other lesions. Bilateral TMs pearly orozco nonbulging NECK: Supple. No adenopathy or masses. No carotid bruits or JVD CHEST: Clear to auscultation. No respiratory distress. No wheezes rales or rhonchi HEART: Regular rate and rhythm. No murmur heard. Normal peripheral pulses. ABDOMEN: Soft, tendern
[2021-05-09] MEDS: MORPHINE SULFATE (*CRX) 2 MG/ML INJ IV PUSH (18:19)
[2021-05-09] MEDS: ONDANSETRON INJ 4 MG/2 ML VIAL IV PUSH (18:20)
[2021-05-09] MEDS: POTASSIUM CHLORIDE 20 MEQ PACKET (FOR LIQUID) 40 MEQ PO (18:20)
[2021-05-09 19:07] LABS: Magnesium 1.8 mg/dL (1.6-2.3)
[2021-05-09 20:43] VITALS: BP 130/71; PULSE 82; RESP 16; O2SAT 96
[2021-05-09 21:05] VITALS: BP 146/88; PULSE 86; RESP 18; O2SAT 98
== END 2021-05-09 21:08 | disposition home or self-care (01) ==
PROVIDERS: Emergency Medicine; Emergency Provider Nurse Practitioner; PCP Emergency Medicine
DX: N13.2 Hydronephrosis with renal and ureteral calculous obstruction (principal); E87.6 Hypokalemia; I10 Essential (primary) hypertension; K50.90 Crohn's disease, unspecified, without complications; E89.0 Postprocedural hypothyroidism; Z87.442 Personal history of urinary calculi; Z87.891 Personal history of nicotine dependence
CPT/HCPCS: 36415; 74177; 80053; 81001; 83690; 83735; 85025; 87086; 87088; 96374; 96375; 99284; A9270; J2270; J2405; Q9967

== ENCOUNTER 2021-06-06 12:18 | Outpatient (CLI) | payer OTHER, SELFPAY ==
--- NOTE | ~2021-06-06 | XR_ITS ---
EXAMINATION: XR pelvis min 3V INDICATION: Pain after fall TECHNIQUE: AP and bilateral oblique views of the pelvis are obtained. COMPARISON: 05/09/2021 FINDINGS: Bone alignment is normal. There is no fracture. Phleboliths are noted in the pelvis. The so ft tissues are unremarkable. IMPRESSION: 1. No acute osseous abnormality. Reviewed, dictated and finalized at location F. MAINTENANCE TECHNICIAN
--- NOTE | ~2021-06-06 | XR_ITS ---
XR skull min 4V DATE: 06/06/2021 12:47 INDICATION: Fall. Head injury. TECHNIQUE: 4 views COMPARISON: None FINDINGS: No skull fracture or bone destruction is detected. Normal sella turcica. No abnormal intrac ranial calcification is noted. Paranasal sinuses and mastoid air cells appear normally developed and aerated. Upper cervical spine is normally aligned. IMPRESSION: Negative Reviewed, dictated and finalized at location A. RECOATER IMPRESSION: Negative
[2021-06-06 13:25] LABS: Basophils Percent Auto 0.4 % (0.2-1.2); Eosinophils Absolute Auto 0.2 K/mm3 (0-0.3); Eosinophils Percent Auto 3.5 % (0-4.4); Hematocrit 39.6 % (37.0-47.0); Immature Granulocyte Absolute 0.01 K/mm3 (0.00-0.031); Immature Granulocyte Percent A 0.2 % (0-0.5); Lymphocytes Absolute Auto 2.53 K/mm3 (0.9-3.2); Mean Corpuscular HGB Conc 32.8 g/dl (32-36); Mean Corpuscular Hemoglobin 28.7 pg (26-34); Mean Corpuscular Volume 87.4 fl (80-100); Mean Platelet Volume 9.7 fl (7.4-10.4); Monocytes Absolute Auto 0.5 K/mm3 (0.1-0.6); Monocytes Percent Auto 9.2 % (2.6-8.5); Neutrophils Absolute Auto 1.7 K/mm3 (1.3-6.7); Neutrophils Percent Auto 34.7 % (45.5-73.1); Platelet Count Result 226 k/mm3 (150-375); Red Blood Count 4.53 M/mm3 (4.2-5.4); Red Cell Distribution Width 14.3 % (11.5-14.5); White Blood Count 4.9 K/mm3 (4.5-10.0)
[2021-06-06 13:29] LABS: Add Urine Microscopic? YES; Appearance Urine Clear (Clear); Bilirubin Urine Negative (Negative); Blood Urine Negative (Negative); Color Urine Amber (Yellow); Glucose Urine UA Negative (Negative); Ketones Urine Negative (Negative); Leukocyte Esterase Ur Negative LEU/UL (Negative); Mucus Urine Rare /lpf; Nitrate Urine Positive (Negative); Protein Urine Negative (Negative); Squamous Epithelial Cell Urine Occasional /hpf (Few); Urobilinogen Urine Negative mg/dL (<2.0); WBC Urine 0-3 /hpf
[2021-06-06 13:38] LABS: Alanine Aminotransferase 19 U/L (4-35); Albumin Level 4.7 g/dL (3.5-5.1); Alkaline Phosphatase 106 U/L (38-126); Anion Gap 7 mmol/L (8-16); Aspartate Amino Transferase 28 U/L (14-36); Bilirubin,Total 0.4 mg/dL (0.2-1.3); Blood Urea Nitrogen 11 mg/dL (7-17); Calcium 9.5 mg/dL (8.4-10.2); Carbon Dioxide 25 mmol/L (22-30); Chloride 100 mmol/L (98-107); Estimated Glomerular Filt Rate > 60; Glucose 95 mg/dL (65-110); Potassium 3.2 mmol/L (3.4-5.0); Sodium 132 mmol/L (137-145)
[2021-06-06 13:41] LABS: Specific Grav Ur 1.004 (1.001-1.035)
[2021-06-10 05:43] LABS: Albumin 4.2 g/dL (3.8-4.8); Alpha 1 Globulin 0.3 g/dL (0.2-0.3); Alpha 2 Globulin 0.8 g/dL (0.5-0.9); Beta 1 Globulin 0.5 g/dL (0.4-0.6); Gamma Globulin 1.4 g/dL (0.8-1.7); Protein, Total 7.6 g/dL (6.1-8.1)
== END 2021-06-06 12:19 | disposition home or self-care (01) ==
LOC: ANHIMG 12:20
PROVIDERS: PCP Emergency Medicine; Visit Provider Emergency Medicine
DX: M89.9 Disorder of bone, unspecified (principal)
CPT/HCPCS: 36415; 70260; 72190; 80053; 81001; 84155; 84165; 85025

== ENCOUNTER 2021-11-16 09:32 | Outpatient (CLI) | payer OTHER, SELFPAY | END 2021-11-16 09:33 | disposition home or self-care (01) | LOC: ANHLAB 09:34 | PROVIDERS: PCP Emergency Medicine; Visit Provider Emergency Medicine | DX: L65.9 Nonscarring hair loss, unspecified (principal); E89.0 Postprocedural hypothyroidism; R79.89 Other specified abnormal findings of blood chemistry | CPT/HCPCS: 36415; 84443 ==

== ENCOUNTER → 2022-02-27 14:28 | Outpatient (CLI) | payer OTHER, SELFPAY ==
--- NOTE | ~2022-02-27 | CT_ITS ---
EXAMINATION: CT abdomen pelvis wo con DATE: 02/27/2022 14:41 INDICATION: Right flank pain. Abdominal pain. TECHNIQUE: Computed tomography (CT) of the abdomen and pelvis was performed without intravenous contr ast. Automated exposure control and iterative reconstruction technique were employed. The dose-length product was 504.38 mGy-cm. COMPARISON: CT abdomen and pelvis 05/09/2021 FINDINGS: The visualized portions of the lung bases demonstrate mild atelectasis. No pleural effusion . The heart size is normal. No pericardial effusion. There is a fundoplication of the stomach with th e wrap above the diaphragm. The liver, spleen, pancreas, adrenal glands, and right kidney are normal. There is a 1.6 cm cyst in left kidney. There is a parenchymal calcification in left kidney. There is a 4 mm stone at left ureteropelvic junction. There are phleboliths in right ovarian vein. There is d iverticulosis of the colon without evidence of diverticulitis. There are no dilated loops of bowel. T he appendix is normal. There are no pathologically enlarged lymph nodes. There is no free intraperito kiki fluid. There is a benign bone island in the sacrum. There is severe thoracic spondylosis with mi ld chronic anterior wedging of multiple vertebral bodies. There is mild lumbar spondylosis. IMPRESSION: 1. 4 mm stone at left ureteropelvic junction. No hydronephrosis. 2. Fundoplication of the stomach with the wrap above the diaphragm. Reviewed, dictated and finalized at location A.
== END ==
PROVIDERS: PCP Emergency Medicine; Visit Provider Emergency Medicine
DX: R10.9 Unspecified abdominal pain (principal); N20.0 Calculus of kidney; K57.30 Diverticulosis of large intestine without perforation or abscess without bleeding; M47.816 Spondylosis without myelopathy or radiculopathy, lumbar region; M48.54XA Collapsed vertebra, not elsewhere classified, thoracic region, initial encounter for fracture
CPT/HCPCS: 74176

== ENCOUNTER 2022-03-07 11:03 | Emergency (ER) | payer OTHER, SELFPAY ==
--- NOTE | ~2022-03-07 | CT_ITS ---
EXAMINATION: CT abdomen pelvis wo con DATE: 03/07/2022 12:30 INDICATION: Flank pain. Hematuria. TECHNIQUE: Computed tomography (CT) of the abdomen and pelvis was performed without intravenous contr ast. Automated exposure control and iterative reconstruction technique were employed. The dose-length product was 204.02 mGy-cm. COMPARISON: CT abdomen and pelvis 02/27/2022 FINDINGS: The visualized portions of the lung bases demonstrate mild atelectasis. No pleural effusion . The heart size is normal. There are changes of fundoplication of the stomach with the wrap above th e diaphragm. There is a 9 mm cyst in the liver. There are changes of cholecystectomy. The spleen, jefferson creas, adrenal glands, and right kidney are normal. There is a parenchymal calcification left kidney. There is a 4 mm stone in distal left ureter. There are no dilated loops of bowel. The appendix is no rmal. There are no pathologically enlarged lymph nodes. There is no free intraperitoneal fluid. There is a benign bone island in the sacrum. IMPRESSION: 1. 4 mm stone in distal left ureter. No hydronephrosis. Reviewed, dictated and finalized at location A.
--- NOTE | ~2022-03-07 | XR_ITS ---
XR abdomen/kub 1V 03/07/2022 12:04 INDICATION: Renal stones TECHNIQUE: KUB COMPARISON: CT dated 02/27/2022 FINDINGS: Bowel gas pattern is normal. There is no evidence of free air, mass, organomegaly, ascites or obstruction. No abnormal calculi are seen. There are pelvic phleboliths. There are cholecystecto my clips. Mild lumbar spondylosis. The bones appear intact. IMPRESSION: 1: No acute abdominal abnormality identified. Reviewed, dictated and finalized at location B.
[2022-03-07 11:13] VITALS: BP 127/74; PULSE 79; RESP 16; TEMP 36.6; O2SAT 99
[2022-03-07 11:43] LABS: Basophils Percent Auto 0.7 % (0.2-1.2); Eosinophils Absolute Auto 0.3 K/mm3 (0-0.3); Eosinophils Percent Auto 6.1 % (0-4.4); Hematocrit 36.6 % (37.0-47.0); Hemoglobin 12.1 g/dL (12.0-15.0); Immature Granulocyte Absolute 0.01 K/mm3 (0.00-0.031); Immature Granulocyte Percent A 0.2 % (0-0.5); Lymphocytes Absolute Auto 2.49 K/mm3 (0.9-3.2); Lymphocytes Percent Auto 44.9 % (18.3-44.2); Mean Corpuscular HGB Conc 33.1 g/dl (32-36); Mean Corpuscular Hemoglobin 28.9 pg (26-34); Mean Corpuscular Volume 87.4 fl (80-100); Mean Platelet Volume 9.6 fl (7.4-10.4); Monocytes Absolute Auto 0.4 K/mm3 (0.1-0.6); Monocytes Percent Auto 7.6 % (2.6-8.5); Neutrophils Absolute Auto 2.3 K/mm3 (1.3-6.7); Neutrophils Percent Auto 40.5 % (45.5-73.1); Platelet Count Result 201 k/mm3 (150-375); Red Blood Count 4.19 M/mm3 (4.2-5.4); Red Cell Distribution Width 13.8 % (11.5-14.5); White Blood Count 5.6 K/mm3 (4.5-10.0)
[2022-03-07 11:44] LABS: Appearance Urine Cloudy (Clear); Bilirubin Urine 1+ (Negative); Blood Urine 3+ (Negative); Color Urine Other (Yellow); Glucose Urine UA Negative (Negative); Ketones Urine Trace mg/dL (Negative); Leukocyte Esterase Ur Negative LEU/UL (Negative); Nitrate Urine Negative (Negative); Protein Urine 2+ mg/dL (Negative); Specific Grav Ur 1.015 (1.001-1.035); Urobilinogen Urine 0.2 mg/dL (<2.0); pH Urine 5.5 (5.0-9.0)
[2022-03-07 11:49] LABS: RBC Urine >75 /hpf (0-2); Squamous Epithelial Cell Urine Moderate /hpf (Few)
[2022-03-07 11:51] LABS: Add Urine Microscopic? YES
[2022-03-07 11:56] LABS: Alanine Aminotransferase 20 U/L (6-35); Albumin Level 4.4 g/dL (3.5-5.1); Alkaline Phosphatase 102 U/L (38-126); Anion Gap 13 mmol/L (8-16); Aspartate Amino Transferase 30 U/L (14-36); Bilirubin,Total 0.4 mg/dL (0.2-1.3); Blood Urea Nitrogen 17 mg/dL (7-17); Calcium 8.7 mg/dL (8.4-10.2); Carbon Dioxide 25 mmol/L (22-30); Chloride 100 mmol/L (98-107); Estimated CRCL calculation 52 ml/min; Estimated Glomerular Filt Rate > 60; Glucose 89 mg/dL (65-110); Lipase 184 U/L (23-300); Sodium 138 mmol/L (137-145)
--- NOTE | 2022-03-07 13:07 | ED.GENADULT ---
HPI - General Adult General Chief complaint: Urogenital-Female Stated complaint: hematuria Time Seen by Provider: 03/07/22 11:48 History of Present Illness HPI narrative: Patient is a 61-year-old female who presents ER with hematuria. Became very heavy today. Patient was recently diagnosed with a left-sided 4 mm kidney stone located at the [facility]. It has been ongoing for the last week. Her PCP prescribed her some antibiotics and told her it would pass on its own. Denies fevers or chills or sweats. Mild radiation into her flank. No aggravating or alleviating factors. Related Data Home Medications Medication Instructions Recorded Confirmed cholecalciferol (vitamin D3) 25 1,000 unit PO DAILY 05/05/19 12/22/19 mcg (1,000 unit) capsule (Vitamin D3) multivit with minerals-iron 18 1 tablet PO DAILY 05/05/19 12/22/19 mg-folic ac 400 mcg-vit K 25 mcg tablet (Adults Multivitamin) meloxicam 7.5 mg tablet 7.5 mg PO BID 07/01/19 12/22/19 ondansetron HCl 4 mg tablet 4 mg PO Q6H PRN Nausea 12/22/19 12/22/19 (Zofran) Allergies Allergy/AdvReac Type Severity Reaction Status Date / Time codeine Allergy Severe Hives Verified 03/07/22 11:16 PMFSH Past Medical History Medical History Crohn's disease HTN (hypertension) Hypothyroidism associated with surgical procedure Insomnia Kidney stone Surgical History Surgical History H/O: hysterectomy Open KLARISSA with bilateral SPO History of cholecystectomy Cholecystectomy during hiatal hernia repair History of repair of hiatal hernia Open hiatal hernia repair 8-9 years ago. History of thyroidectomy Family History Family History Mother Acute myocardial infarction Social History Social History Social History: Patient lives at home with , Ed, whom she designates as her surrogate MDM. She wishes to be listed as a Full Code. PCP: Dr. Mcfarland Years smoked: 12 Smoking status: Former smoker Alcohol intake: current Alcohol use details: patient drinks about 2 times per month. Occasional Substance use: former Substance use type: marijuana Gender identity (if verbalized by the patient): Female Spiritual care concerns: No Exam Narrative: GENERAL: Well-appearing, well-nourished, and in no acute distress. HEAD: Normocephalic, atraumatic. EYES: PERRL and EOMI. CHEST: Clear to auscultation. No respiratory distress. HEART: Regular rate and rhythm. Normal peripheral pulses. ABDOMEN: Soft, nontender, nondistended. No reproducible flank pain. EXTREMITIES: Normal range of motion. No edema. SKIN: Warm, dry, no rash. NEURO: Alert and oriented x3. PSYCH: Normal mood and affect. Course Course Emergency Course: Discussed case with urology. They will take patient to the OR in 2 days. Supportive care until then. Patient verbalized understanding treatment plan. Vital Signs Vital signs: Vital Signs Temperature 97.8 F 03/07/22 11:13 Pulse Rate 79 03/07/22 11:13 Respiratory Rate 16 03/07/22 11:13 Blood Pressure 127/74 03/07/22 11:13 Pulse Oximetry 99 03/07/22 11:13 Oxygen Delivery Room Air 03/07/22 11:13 Temperature 97.8 F 03/07/22 11:13 Pulse Rate 79 03/07/22 11:13 Respiratory Rate 16 03/07/22 11:13 Blood Pressure 127/74 03/07/22 11:13 Pulse Oximetry 99 03/07/22 11:13 Oxygen Delivery Room Air 03/07/22 11:13 Medical Decision Making Vital Signs Vital Signs: Vital Signs Temperature 97.8 F 03/07/22 11:13 Pulse Rate 79 03/07/22 11:13 Respiratory Rate 16 03/07/22 11:13 Blood Pressure 127/74 03/07/22 11:13 Pulse Oximetry 99 03/07/22 11:13 Oxygen Delivery Room Air 03/07/22 11:13 Temperature 97.8 F 03/07/22 11:13 Pulse Rate 79 03/07/22 11:13 Respiratory Rat
== END 2022-03-07 13:58 | disposition home or self-care (01) ==
PROVIDERS: Emergency Provider Emergency Medicine; PCP Emergency Medicine
DX: N20.1 Calculus of ureter (principal); K50.90 Crohn's disease, unspecified, without complications; I10 Essential (primary) hypertension; E89.0 Postprocedural hypothyroidism; Z87.442 Personal history of urinary calculi; Z90.710 Acquired absence of both cervix and uterus; Z90.722 Acquired absence of ovaries, bilateral; Z87.891 Personal history of nicotine dependence
CPT/HCPCS: 36415; 74018; 74176; 80053; 81001; 83690; 85025; 99284

== ENCOUNTER 2022-03-09 01:42 | Day surgery (SDC) | payer OTHER, SELFPAY ==
[2022-03-08 09:19] VITALS: BMI 27.4
--- NOTE | 2022-03-08 09:29 | PC.NURSE ---
Report to the Outpatient Waiting Room, entrance under the green pavilion located off [facility], at time 1315 on date 03/09/22. OR Time: 1515. Time changes happen often and if your time is changed the preop area will call you the afternoon before. - You and your visitor will be asked to self-screen and do not enter if you have any COVID symptoms. - Only one visitor and NO children visitors are allowed at this time. - The patient visitor is requested to leave or wait in car when not with patient due to restrictions. - A mask is required within the hospital. Patients may have clear liquids (water, carbonated beverages, clear teas, apple juice) until 3 hours prior to surgery with a maximum of 20 ounces. - No food from midnight until time of surgery Take the following medications with a SIP of water the morning of surgery: AMLODIPINE, LEVOTHYROXINE, TOPIRAMATE, XANAX AND PAIN PILL IF NEEDED Medications to discontinue per physician: VITAMINS/SUPPLEMENTS Date to take last dose: NO MORE UNTIL AFTER SURGERY Please no make-up, nail english, hairspray, perfume, deodorant, or body powder the day of surgery. No jewelry (including any body piercings) or valuables the day of surgery, leave them at home. Please take a shower or bath the night before, or the morning of, surgery with an antibacterial soap. Wear comfortable, loose fitting clothing. - Jewelry must be removed prior to entering the operating room. Rings and piercings that are not removed may be cut off. - The hospital will not accept responsibility for valuables. - Please leave all valuables, including medications, at home the day of surgery. If you are going home after surgery, a licensed cdl b driver must drive you home. - NO public transportation without another adult. - We recommend that an adult stay with you for 24 hours following discharge. - We also recommend that you do not drive, make important decision, drink alcoholic beverages, or take any drugs that were not prescribed by your health care provider for at least 24 hours after your discharge time. Follow any additional instructions given to you from your surgeon. If you or anyone in your household have experienced Covid symptoms in the past week, please notify your surgeon or the nurse liaison at the phone number below for possible testing. Telephone instructions given to PT - TETO MALONE and asked if any additional questions and then verbalized understanding. Patient advised to call surgeon office or pre surgery nurse liaison [phone] if any additional questions.
--- NOTE | 2022-03-08 13:06 | WPDANESEPPF ---
Anes - Initial Pre Proc Eval Procedure: Operation Date: 03/09/22 15:15 Proposed Procedures p Cystoscopy, Left Ureteroscopy, Possible Left Retrograde Pyelogram, Possible Left Stone Extraction, Possible Left Stent Placement, Possible Holmium Laser Lithotripsy - Alvaro Hernandez MD Date/Time: 03/08/22 13:06 Surgeon: Alvaro Hernandez MD Pre Op Diagnosis: left ureteral stones Patient Data Age: 61 Gender: F Height: 1.57 m Weight: 68.04 kg Allergies Allergy/AdvReac Type Severity Reaction Status Date / Time codeine Allergy Severe Hives Verified 03/09/22 14:06 Home Medications Medication Instructions Recorded Confirmed Type cholecalciferol (vitamin D3) 25 1,000 unit PO DAILY 05/05/19 03/09/22 History mcg (1,000 unit) capsule (Vitamin D3) multivit with minerals-iron 18 1 tablet PO DAILY 05/05/19 03/09/22 History mg-folic ac 400 mcg-vit K 25 mcg tablet (Adults Multivitamin) meloxicam 7.5 mg tablet 7.5 mg PO BID 07/01/19 03/08/22 History dicyclomine 20 mg tablet See Rx Instructions .Route 07/01/21 03/08/22 Rx .COMPLEX #90 tabs hydrochlorothiazide 25 mg tablet See Rx Instructions .Route 07/01/21 03/08/22 Rx .COMPLEX #90 tabs losartan 50 mg tablet See Rx Instructions .Route 07/01/21 03/08/22 Rx .COMPLEX #90 tabs sertraline 50 mg tablet (Zoloft) 50 mg PO DAILY #90 tabs 08/23/21 03/08/22 Rx topiramate 50 mg tablet (Topamax) 50 mg PO BID #180 tabs 08/23/21 03/09/22 Rx amlodipine 5 mg tablet See Rx Instructions .Route 12/14/21 03/09/22 Rx .COMPLEX #90 tabs levothyroxine 100 mcg tablet See Rx Instructions .Route 12/14/21 03/09/22 Rx .COMPLEX #90 tabs quetiapine 50 mg tablet See Rx Instructions .Route 12/26/21 03/08/22 Rx .COMPLEX #90 tabs amitriptyline 25 mg tablet See Rx Instructions .Route 01/17/22 03/08/22 Rx .COMPLEX #90 tabs naproxen 500 mg tablet 500 mg PO BID PRN pain #14 tabs 02/27/22 03/08/22 Rx alprazolam 0.5 mg tablet (Xanax) 0.5 mg PO TID PRN anxiety #30 tabs 03/01/22 03/08/22 Rx hydrocodone 5 mg-acetaminophen 325 1 tablet PO Q6H PRN pain #14 tabs 03/07/22 03/08/22 Rx mg tablet ondansetron 4 mg disintegrating 4 mg PO Q6H PRN nausea and 03/07/22 03/08/22 Rx tablet vomiting #10 tabs tamsulosin 0.4 mg capsule 0.4 mg PO DAILY #5 caps 03/07/22 03/08/22 Rx Patient hx anesthesia problems: none Family hx anesthesia problems: none Results Review: All pre-operative results and documents have been reviewed as part of the pre-operative evaluation. [facility] Past Medical History Medical History (Updated 03/09/22 @ 07:31 by Alvaro Hernandez MD) Anxiety Crohn's disease Elevated cholesterol HTN (hypertension) HTN (hypertension) Hypothyroidism associated with surgical procedure Insomnia Kidney stone Thyroid cancer Urolithiasis Surgical History Surgical History H/O: hysterectomy Open KLARISSA with bilateral SPO History of cholecystectomy Cholecystectomy during hiatal hernia repair History of repair of hiatal hernia Open hiatal hernia repair 8-9 years ago. History of thyroidectomy Family History Family History Mother Acute myocardial infarction Social History Social History Social History: Patient lives at home with , Ed, whom she designates as her surrogate MDM. She wishes to be listed as a Full Code. PCP: Dr. Mcfarland Smoking packs per day: 0.5 Smoking cigarettes per day: 10.0 Years smoked: 15 Smoking pack-years: 7.50 Smoking status: Former smoker Tobacco type: cigarettes Smoking end date: 06/11/00 Alcohol intake: never Alcohol use details: patient drinks about 2 times per month. Occasional Substance use: never Substance use type: does not use Living arrangements: with family Gender identity (if verbalized by the patient): Female Spiritual care concerns: N
--- NOTE | ~2022-03-09 | XR_ITS ---
EXAMINATION: XR stent kub - surgery DATE: 03/09/2022 15:49 INDICATION: Renal stone extraction and stent placement TECHNIQUE: 4 fluoroscopic images of the abdomen and pelvis were obtained during procedure performed b nicanor Hernandez. Radiologist was not present for the imaging or procedure. The amount of fluoroscopy suhas e used during this procedure was 0.5 minutes. COMPARISON: CT dated 03/07/2022 FINDINGS: Phlebolith in the inferior left hemipelvis. Slight more cephalad and lateral is a subtle density like ly representing the previous noted distal left ureteral stone. This is no longer identified on the fi nal images following likely stone extraction with placement of a left intraureteral stent which is in expected position with loops formed over the expected locations of the left renal pelvis and the jaun dder. IMPRESSION: 1. Fluoroscopy utilized during a likely distal left ureteral stone extraction with subsequent left in ternal ureteral stent placement in expected position. Correlate with procedure note for further detai l. Reviewed, dictated and finalized at location A. IMPRESSION: 1. Fluoroscopy utilized during a likely distal left ureteral stone extraction w ith subsequent left internal ureteral stent placement in expected position. Cor relate with procedure note for further detail.
--- NOTE | 2022-03-09 07:29 | PM.HPGS ---
History of Present Illness History of Present Illness Consent: Risks, benefits, and alternatives have been discussed and questions answered. Patient agrees to proceed with procedure. Chief complaint: left ureteral stones Narrative: Karon Gaviria is a 61 year old female, Without prior known history of urolithiasis, who has been in the ER twice in the past 10 days with hematuria and intermittent left flank pain. Imaging demonstrates a 4 mm left distal ureteral calculus. She has failed a trial of expulsive therapy and now presents for definitive intervention. She is aware of the risk of this procedure include, but not limited to, persistent stone fragments, ureteral injury, need for a stent placement. Review of Systems Cardiovascular: Cardiovascular: Denies chest pain, Denies lightheadedness, Denies palpitations and Denies dyspnea Respiratory: Respiratory: Denies dyspnea Gastrointestinal: Gastrointestinal: Denies diarrhea, Denies nausea and Denies vomiting Genitourinary: Genitourinary: Denies hematuria and Denies dysuria Endocrine: Endocrine: Denies palpitations PMFSH Past Medical History Medical History (Updated 03/09/22 @ 07:31 by Alvaro Hernandez MD) Anxiety Crohn's disease Elevated cholesterol HTN (hypertension) HTN (hypertension) Hypothyroidism associated with surgical procedure Insomnia Kidney stone Thyroid cancer Urolithiasis Surgical History Surgical History H/O: hysterectomy Open KLARISSA with bilateral SPO History of cholecystectomy Cholecystectomy during hiatal hernia repair History of repair of hiatal hernia Open hiatal hernia repair 8-9 years ago. History of thyroidectomy Family History Family History Mother Acute myocardial infarction Social History Social History Social History: Patient lives at home with , Ed, whom she designates as her surrogate MDM. She wishes to be listed as a Full Code. PCP: Dr. Mcfarland Smoking packs per day: 0.5 Smoking cigarettes per day: 10.0 Years smoked: 15 Smoking pack-years: 7.50 Smoking status: Former smoker Tobacco type: cigarettes Smoking end date: 06/11/00 Alcohol intake: never Alcohol use details: patient drinks about 2 times per month. Occasional Substance use: never Substance use type: does not use Living arrangements: with family Gender identity (if verbalized by the patient): Female Spiritual care concerns: No Meds Home Medications and Allergies Home Medications Medication Instructions Recorded Confirmed Type cholecalciferol (vitamin D3) 25 1,000 unit PO DAILY 05/05/19 03/08/22 History mcg (1,000 unit) capsule (Vitamin D3) multivit with minerals-iron 18 1 tablet PO DAILY 05/05/19 03/08/22 History mg-folic ac 400 mcg-vit K 25 mcg tablet (Adults Multivitamin) meloxicam 7.5 mg tablet 7.5 mg PO BID 07/01/19 03/08/22 History dicyclomine 20 mg tablet See Rx Instructions .Route 07/01/21 03/08/22 Rx .COMPLEX #90 tabs hydrochlorothiazide 25 mg tablet See Rx Instructions .Route 07/01/21 03/08/22 Rx .COMPLEX #90 tabs losartan 50 mg tablet See Rx Instructions .Route 07/01/21 03/08/22 Rx .COMPLEX #90 tabs sertraline 50 mg tablet (Zoloft) 50 mg PO DAILY #90 tabs 08/23/21 03/08/22 Rx topiramate 50 mg tablet (Topamax) 50 mg PO BID #180 tabs 08/23/21 03/08/22 Rx amlodipine 5 mg tablet See Rx Instructions .Route 12/14/21 03/08/22 Rx .COMPLEX #90 tabs levothyroxine 100 mcg tablet See Rx Instructions .Route 12/14/21 03/08/22 Rx .COMPLEX #90 tabs quetiapine 50 mg tablet See Rx Instructions .Route 12/26/21 03/08/22 Rx .COMPLEX #90 tabs amitriptyline 25 mg tablet See Rx Instructions .Route 01/17/22 03/08/22 Rx .COMPLEX #90 tabs naproxen 500 mg tablet 500 mg PO BID PRN pain #14 tabs 02/27/22 03/08/22 Rx alprazolam 0.5 mg t
--- NOTE | 2022-03-09 07:32 | WPDHPUPDATE1 ---
History and Physical Update Update Date/Time: 03/09/22 07:32 History and Physical has been reviewed, including an updated exam of the patient. There are NO changes in the patient's condition. Risks, benefits, and alternatives have been discussed and questions answered. Patient agrees to proceed with procedure.
--- NOTE | 2022-03-09 09:55 | ECG_ITS ---
Measurements Intervals [facility] Rate: 68 P: 31 FL: 153 QRS: 15 QRSD: 90 T: 11 QT: 418 QTc: 447 Interpretive Statements SINUS RHYTHM VENTRICULAR PREMATURE COMPLEX EARLY PRECORDIAL R/S TRANSITION BORDERLINE ECG COMPARED TO ECG 05/09/2019 10:55:09 NO SIGNIFICANT CHANGES Electronically Signed On 03-09-2022 14:05:28 CDT by Angelo Melendez D.O.
[2022-03-09 13:10] VITALS: BMI 28.3
[2022-03-09 13:15] VITALS: BP 126/90; PULSE 73; RESP 14; TEMP 36.8; O2SAT 96
[2022-03-09] MEDS: LACTATED RINGERS 1,000 ML 30 ML IV CONT (13:40)
[2022-03-09] MEDS: ceFAZolin 2 GM/D5W 50 ML 2 GM/50 ML BAG IVPB (15:06)
[2022-03-09] MEDS: LIDOCAINE HCL 2% GEL UROJET 10 ML PKG MUCOUS MEM (15:11)
[2022-03-09] MEDS: KETOROLAC 30 MG/ML VIAL (*BKC) IV PUSH (15:40)
[2022-03-09 15:50] VITALS: BP 107/72; PULSE 60; RESP 20; O2SAT 100
--- NOTE | 2022-03-09 15:51 | W.PM.PROC2 ---
Procedure Note - Detailed Date of Procedure 03/09/22 Pre-op Diagnosis Left ureteral stones Post-op Diagnosis Same Procedure Performed Cystoscopy, left ureteroscopy with laser lithotripsy, stone extraction and ureteral stent placement Surgeon Alvaro Hernandez MD Description of Procedure The patient was brought to the operative suite where she is prepped and draped in a routine sterile fashion while in the dorsal lithotomy position after the uneventful induction of a general LMA anesthetic. A 19F rigid cystoscope was placed in the bladder. The patient had no evidence of urethral stricture or bladder neck contracture. The bladder mucosa was endoscopically normal without hyperemia or neoplasm. There was a single, orthotopic ureteral orifice bilaterally. A 0.035 glidewire was advanced into the left renal pelvis under fluoroscopy. The distal ureter was dilated with an 8F/10F ureteral dilator. Ureteroscopy was undertaken with a short tapered semi-rigid ureteroscope. There was significant ureteral edema in the stone was impacted in the distal ureter. With ureteroscopy I fractured the stone into smaller pieces using a 273micron Holmium laser fiber with the Holmium laser. I was able to then extract the stone pieces using a 1.9F Escape, disposable stone basket. Due to the extent of this manipulation I did place a 4.8F double-J ureteral stent. The proximal coil of the stent was confirmed to be in the renal pelvis and the distal coil in the bladder. The patient's bladder was emptied and he was taken to the recovery room having tolerated this procedure well. Drains No Pathology None sent Complications No immediate complications Condition Stable Disposition PACU
[2022-03-09 16:20] VITALS: BP 135/72; PULSE 51; RESP 20; O2SAT 100
[2022-03-09 16:50] VITALS: BP 129/87; PULSE 55; RESP 20
== END 2022-03-09 17:05 | disposition home or self-care (01) ==
PROVIDERS: PCP Emergency Medicine; Visit Provider Urology
PROC: (CPT 52352; principal; 2022-03-09 15:15)
DX: N20.1 Calculus of ureter (principal); I10 Essential (primary) hypertension; K50.90 Crohn's disease, unspecified, without complications; Z85.850 Personal history of malignant neoplasm of thyroid; E89.0 Postprocedural hypothyroidism; Z87.891 Personal history of nicotine dependence
CPT/HCPCS: 52356; 82365; 88300; 93005; A9270; C1769; C2617; J0690; J1100; J1885; J2250; J2405; J2704; J3010; J7120

== ENCOUNTER 2022-06-09 08:33 | Outpatient (CLI) | payer OTHER, SELFPAY ==
[2022-06-09 09:16] LABS: Alanine Aminotransferase 72 U/L (6-35); Albumin Level 4.3 g/dL (3.5-5.1); Alkaline Phosphatase 101 U/L (38-126); Anion Gap 4 mmol/L (8-16); Aspartate Amino Transferase 60 U/L (14-36); Bilirubin,Total 0.5 mg/dL (0.2-1.3); Blood Urea Nitrogen 16 mg/dL (7-17); Calcium 8.5 mg/dL (8.4-10.2); Carbon Dioxide 29 mmol/L (22-30); Chloride 105 mmol/L (98-107); Cholesterol 214 mg/dL (0-200); Estimated Glomerular Filt Rate > 60; Glucose 118 mg/dL (65-110); HDL Direct 103 mg/dL; Potassium 3.1 mmol/L (3.4-5.0); Sodium 138 mmol/L (137-145); Triglycerides 63 mg/dL (<150)
[2022-06-09 09:27] LABS: LDL Cholesterol Direct 74 mg/dL
[2022-06-09 10:44] LABS: Thyroid Stimulating Hormone 0.386 uIU/mL (0.465-4.680)
[2022-06-09 11:21] LABS: Folic Acid 7.2 ng/mL (2.76->20)
[2022-06-13 11:51] LABS: Vitamin D 1,25 (OH)2 Total 69 pg/mL (18-72); Vitamin D2 1,25 (OH)2 <8 pg/mL; Vitamin D3 1,25 (OH)2 69 pg/mL
== END 2022-06-09 08:34 | disposition home or self-care (01) ==
PROVIDERS: PCP Emergency Medicine; Visit Provider Emergency Medicine
DX: R79.89 Other specified abnormal findings of blood chemistry (principal); I10 Essential (primary) hypertension; E55.9 Vitamin D deficiency, unspecified
CPT/HCPCS: 36415; 80053; 80061; 82607; 82652; 82746; 84443

== ENCOUNTER 2022-07-18 09:09 | Outpatient (CLI) | payer OTHER, SELFPAY ==
[2022-07-18 10:24] LABS: Iron 86 ug/dL (37-170)
[2022-07-20 15:28] LABS: Zinc 79 mcg/dL (60-130)
== END 2022-07-18 09:10 | disposition home or self-care (01) ==
LOC: ANHLAB 09:11
PROVIDERS: PCP Emergency Medicine; Visit Provider Emergency Medicine
DX: L65.9 Nonscarring hair loss, unspecified (principal)
CPT/HCPCS: 36415; 83540; 84630

== ENCOUNTER 2022-08-08 07:21 | Outpatient (CLI) | payer OTHER, SELFPAY ==
--- NOTE | ~2022-08-08 | MM_ITS ---
EXAMINATION: MM screening katheryn BI w maurizio HISTORY: Screening mammogram TECHNIQUE: Craniocaudal and mediolateral oblique 3-D tomosynthesis images were obtained and synthetic 2-D images were generated. CAD analysis was submitted and interpreted. COMPARISON: 03/30/2019 bilateral screening mammogram examination BREAST PARENCHYMAL COMPOSITION: There are scattered areas of fibroglandular density. FINDINGS: There is no evidence of suspicious mass, calcification, or architectural distortion to sugg est malignancy in either breast. There has been no suspicious interval change. IMPRESSION: 1. No mammographic evidence of malignancy. 2. Recommend routine screening mammography in one year. BI-RADS Category 1: Negative Reviewed, dictated and finalized at location A. NESS WRITER
== END 2022-08-08 07:22 | disposition home or self-care (01) ==
PROVIDERS: PCP Emergency Medicine; Visit Provider Emergency Medicine
DX: Z12.31 Encounter for screening mammogram for malignant neoplasm of breast (principal)
CPT/HCPCS: 77063; 77067

== ENCOUNTER 2022-10-10 08:24 | Outpatient (CLI) | payer OTHER, SELFPAY ==
--- NOTE | 2022-10-10 08:30 | EST_ITS ---
Patient Info Name: Karon Gaviria Age: 62 years : 1960 Gender: Female Ht: 61 in Wt: 138 lbs BSA: 1.66 m2 HR: 73 bpm BP: 128 / 82 mmHg Heart Rhythm: Sinus Rhythm Exam Date: 10/10/2022 8:54 AM Exam Location: [facility] Stress Patient Status: Outpatient Admit Date: 10/10/2022 Staff Ordering Physician: Tae Mcfarland MD Attending Provider: Tae Mcfarland MD Exercise Technologist: Erika Perry CT Exercise Physician: Angelo Melendez DO Exam Type: CA stress test treadmill Study Info Indications R07.89 - Other chest pain A treadmill exercise stress test was performed. Summary 1. 1. Negative [facility] exercise stress test for ischemic ST changes by ECG criteria. 2. 2. Good functional capacity, achieving 8.9 METs of workload. 3. 3. Appropriate HR response to exercise. 4. 4. Appropriate HR recovery at 1 minute post exercise. 5. 5. No imaging with stress testing. 6. 6. Patient informed of the above results. Protocol: [facility] Stress ECG Details Stage: REST Duration (min): 1 min : 16 sec Speed (mph): 0.0 Grade (%): 0 HR (bpm): 70 SBP (mmHg): 128 DBP (mmHg): 82 METS: --- Stage: REST Duration (min): 6 min : 16 sec Speed (mph): 0.0 Grade (%): 0 HR (bpm): 79 SBP (mmHg): 128 DBP (mmHg): 82 METS: --- Stage: STAGE 1 Duration (min): 1 min : 0 sec Speed (mph): 1.7 Grade (%): 10 HR (bpm): 103 SBP (mmHg): 128 DBP (mmHg): 82 METS: --- Stage: STAGE 1 Duration (min): 2 min : 0 sec Speed (mph): 1.7 Grade (%): 10 HR (bpm): 115 SBP (mmHg): 128 DBP (mmHg): 82 METS: --- Stage: STAGE 1 Duration (min): 3 min : 0 sec Speed (mph): 1.7 Grade (%): 10 HR (bpm): 119 SBP (mmHg): 130 DBP (mmHg): 75 METS: --- Stage: STAGE 2 Duration (min): 1 min : 0 sec Speed (mph): 2.5 Grade (%): 12 HR (bpm): 123 SBP (mmHg): 130 DBP (mmHg): 75 METS: --- Stage: STAGE 2 Duration (min): 2 min : 0 sec Speed (mph): 2.5 Grade (%): 12 HR (bpm): 127 SBP (mmHg): 134 DBP (mmHg): 76 METS: --- Stage: STAGE 2 Duration (min): 3 min : 0 sec Speed (mph): 2.5 Grade (%): 12 HR (bpm): 124 SBP (mmHg): 134 DBP (mmHg): 76 METS: --- Stage: STAGE 3 Duration (min): 1 min : 0 sec Speed (mph): 3.4 Grade (%): 14 HR (bpm): 135 SBP (mmHg): 139 DBP (mmHg): 81 METS: --- Stage: STAGE 3 Duration (min): 1 min : 0 sec Speed (mph): 3.4 Grade (%): 14 HR (bpm): 135 SBP (mmHg): 139 DBP (mmHg): 81 METS: --- Stage: RECOVERY Duration (min): 0 min : 59 sec Speed (mph): 0.0 Grade (%): 0 HR (bpm): 103 SBP (mmHg): 139 DBP (mmHg): 81 METS: --- Stage: RECOVERY Duration (min): 1 min : 59 sec Speed (mph): 0.0 Grade (%): 0 HR (bpm): 91 SBP (mmHg): 139 DBP (mmHg): 81 METS: --- Stage: RECOVERY Duration (min): 2 min : 46 sec Speed (mph): 0.0 Grade (%): 0 HR (bpm): 88 SBP (mmHg): 123 DBP (mmHg): 86
== END 2022-10-10 08:25 | disposition home or self-care (01) ==
PROVIDERS: PCP Emergency Medicine; Visit Provider Emergency Medicine
DX: R07.9 Chest pain, unspecified (principal)
CPT/HCPCS: 93017

== ENCOUNTER 2023-01-06 16:51 | Emergency (ER) | payer OTHER, SELFPAY ==
[2023-01-06 17:07] VITALS: BP 108/68; PULSE 68; RESP 16; TEMP 37.4; O2SAT 98
--- NOTE | 2023-01-06 18:06 | ED.DENTAL ---
HPI - Dental/Oral General Chief complaint: Dental/Oral Stated complaint: left facial/tooth pain Source: patient Mode of arrival: ambulatory Limitations: no limitations History of Present Illness HPI Narrative: Patient presents for evaluation of left lower dental pain. Symptom onset a few days ago. She states pain was initially in her left ear and she thought she had an ear infection. She woke from sleep this morning with swelling in left mandibular region. She states she has poor dentition which she attributes to frequent vomiting associated with her Crohn's disease. She rates her pain 8/10 in severity. She has been taking ibuprofen for her symptoms which seems to provide her with mild relief. No fever, chills, nausea, vomiting. She does not smoke. Related Data Home Medications Medication Instructions Recorded Confirmed cholecalciferol (vitamin D3) 25 1,000 unit PO DAILY 05/05/19 08/31/22 mcg (1,000 unit) capsule (Vitamin D3) multivit with minerals-iron 18 1 tablet PO DAILY 05/05/19 08/31/22 mg-folic ac 400 mcg-vit K 25 mcg tablet (Adults Multivitamin) meloxicam 7.5 mg tablet 7.5 mg PO BID 07/01/19 08/31/22 atogepant 60 mg tablet (Qulipta) mg 01/06/23 estradiol 0.01% (0.1 mg/gram) vaginal 01/06/23 vaginal cream infliximab 100 mg intravenous mg IV [id number] 01/06/23 solution (Remicade) rizatriptan 10 mg disintegrating mg 01/06/23 tablet Allergies Allergy/AdvReac Type Severity Reaction Status Date / Time codeine Allergy Severe Hives Verified 01/06/23 16:54 Review of Systems Review of Systems: CONSTITUTIONAL: Denies fever, chills, or sweats. EYES: Denies visual changes, redness, or discharge. ENT: Reports left lower dental pain with left mandibular swelling CARDIOVASCULAR: Denies chest pain, palpitations, or edema. RESPIRATORY: Denies cough or dyspnea. GASTROINTESTINAL: Denies abdominal pain, nausea, vomiting, or diarrhea. GENITOURINARY: Denies dysuria or hematuria. SKIN: Denies rash or itching. MUSCULOSKELETAL: Denies back pain, joint pain, or myalgia. NEUROLOGIC: Denies headache, numbness, dizziness, or weakness. PSYCHIATRIC: Denies anxiety or depression. [facility] Past Medical History Medical History Anxiety Crohn's disease Dental infection Elevated cholesterol HTN (hypertension) HTN (hypertension) Hypothyroidism associated with surgical procedure Insomnia Kidney stone Thyroid cancer Urolithiasis Surgical History Surgical History H/O: hysterectomy Open KLARISSA with bilateral SPO History of cholecystectomy Cholecystectomy during hiatal hernia repair History of repair of hiatal hernia Open hiatal hernia repair 8-9 years ago. History of thyroidectomy Family History Family History Mother Acute myocardial infarction Social History Social History Social History: Patient lives at home with , Addison, whom she designates as her surrogate MDM. She wishes to be listed as a Full Code. PCP: Dr. Mcfarland Smoking packs per day: 0.5 Smoking cigarettes per day: 10.0 Years smoked: 15 Smoking pack-years: 7.50 Smoking status: Former smoker Tobacco type: cigarettes Smoking end date: 06/11/00 Alcohol intake: never Alcohol use details: patient drinks about 2 times per month. Occasional Substance use: never Substance use type: does not use Living arrangements: with family Gender identity (if verbalized by the patient): Female Spiritual care concerns: No Exam Narrative: GENERAL: Well-appearing, well-nourished, and in no acute distress. HEAD: Normocephalic, atraumatic. EYES: PERRLA and EOMI. ENT: Nares clear, no rhinorrhea or epistaxis. Mucous membranes moist. Overall poor dentition. There are inflammatory guzman
== END 2023-01-06 17:22 | disposition home or self-care (01) ==
PROVIDERS: Emergency Provider Nurse Practitioner; PCP Emergency Medicine
DX: K04.7 Periapical abscess without sinus (principal); Z87.891 Personal history of nicotine dependence; K50.90 Crohn's disease, unspecified, without complications; E78.00 Pure hypercholesterolemia, unspecified; I10 Essential (primary) hypertension; E89.0 Postprocedural hypothyroidism; Z85.850 Personal history of malignant neoplasm of thyroid
CPT/HCPCS: 99213; G0463

== ENCOUNTER 2023-02-09 15:46 | Emergency (ER) | payer OTHER, SELFPAY ==
--- NOTE | ~2023-02-09 | XR_ITS ---
EXAMINATION: XR ribs RT 2V w CXR 2V INDICATION: Right chest pain TECHNIQUE: PA and lateral views of the chest and 3 views of the right ribs were obtained. COMPARISON: 07/21/2016 FINDINGS: The lungs are free of acute opacities. No pleural effusion or pneumothorax. The cardiomedia stinal silhouette is normal. There is severe thoracic spondylosis. No displaced rib fracture is ident ified. There are surgical changes of the upper abdomen. IMPRESSION: 1. No acute cardiopulmonary abnormality or evidence of displaced rib fracture. Reviewed, dictated and finalized at location B.
[2023-02-09 15:58] VITALS: BP 105/68; PULSE 62; RESP 15; TEMP 36.6; O2SAT 97
[2023-02-09] MEDS: LIDOCAINE 5% PATCH 1 PATCH TRANSDERM (17:05)
[2023-02-09] MEDS: diazePAM (*CRX) 5 MG TABLET PO (17:05)
[2023-02-09] MEDS: KETOROLAC 30 MG/ML VIAL (*BKC) IM (17:05)
--- NOTE | 2023-02-09 17:12 | ED.FALL ---
HPI - Fall General Chief Complaint: Fall Stated Complaint: Fall, R rib pain Time Seen by Provider: 02/09/23 16:46 Source: patient Mode of arrival: ambulatory Limitations: no limitations History of Present Illness HPI Narrative: patient is a pleasant 62 yo female who presents to the ED today ambulatory with a steady gait with a past medical history of anxiety, Crohn's disease, hypertension, hypothyroidism, insomnia, thyroid cancer, kidney stones, hyperlipidemia, who presents emergency department today ambulatory for evaluation of pain to the right upper ribs with approves. Patient states that last night she walked into the bedroom and didn't turn on the lights stumbling and falling on her 's gun wooden safe on the right side. Did not injury any other area, did not lose any consciousness or strike her head. She states that it hurts to move but denies any pain with deep breathing. Denies chest pain, shortness of breath, nausea, cough, vomiting, diarrhea, bloody stool, fever, chills, or any other symptoms. Related Data Home Medications Medication Instructions Recorded Confirmed cholecalciferol (vitamin D3) 25 1,000 unit PO DAILY 05/05/19 08/31/22 mcg (1,000 unit) capsule (Vitamin D3) multivit with minerals-iron 18 1 tablet PO DAILY 05/05/19 08/31/22 mg-folic ac 400 mcg-vit K 25 mcg tablet (Adults Multivitamin) meloxicam 7.5 mg tablet 7.5 mg PO BID 07/01/19 08/31/22 atogepant 60 mg tablet (Qulipta) mg 01/06/23 estradiol 0.01% (0.1 mg/gram) vaginal 01/06/23 vaginal cream infliximab 100 mg intravenous mg IV [id number] 01/06/23 solution (Remicade) rizatriptan 10 mg disintegrating mg 01/06/23 tablet Allergies Allergy/AdvReac Type Severity Reaction Status Date / Time codeine Allergy Severe Hives Verified 02/09/23 16:03 Review of Systems Review of Systems: CONSTITUTIONAL: Denies fever, chills, or sweats. EYES: Denies visual changes, redness, or discharge. ENT: Denies rhinorrhea, congestion, sore throat, or otalgia. CARDIOVASCULAR: Denies chest pain, palpitations, or edema. CHEST/RIBS: pain to the right upper rib with bruising/abrasion RESPIRATORY: Denies cough or dyspnea. GASTROINTESTINAL: Denies abdominal pain, nausea, vomiting, or diarrhea. GENITOURINARY: Denies dysuria or hematuria. SKIN: Denies rash or itching. MUSCULOSKELETAL: Denies back pain, joint pain, or myalgia. NEUROLOGIC: Denies headache, numbness, or weakness. PSYCHIATRIC: Denies anxiety or depression. All systems reviewed & are unremarkable except as noted in HPI and below PMFSH Past Medical History Medical History Anxiety Crohn's disease Dental infection Elevated cholesterol HTN (hypertension) HTN (hypertension) Hypothyroidism associated with surgical procedure Insomnia Kidney stone Thyroid cancer Urolithiasis Surgical History Surgical History H/O: hysterectomy Open KLARISSA with bilateral SPO History of cholecystectomy Cholecystectomy during hiatal hernia repair History of repair of hiatal hernia Open hiatal hernia repair 8-9 years ago. History of thyroidectomy Family History Family History Mother Acute myocardial infarction Social History Social History Social History: Patient lives at home with , Addison, whom she designates as her surrogate MDM. She wishes to be listed as a Full Code. PCP: Dr. Mcfarland Smoking packs per day: 0.5 Smoking cigarettes per day: 10.0 Years smoked: 15 Smoking pack-years: 7.50 Smoking status: Former smoker Tobacco type: cigarettes Smoking end date: 06/11/00 Alcohol intake: never Alcohol use details: patient drinks about 2 times per month. Occasional Substance use: never Substance use type: does not use Living arrangements: with family [place]
== END 2023-02-09 18:17 | disposition home or self-care (01) ==
PROVIDERS: Emergency Provider Nurse Practitioner; PCP Emergency Medicine
DX: S20.211A Contusion of right front wall of thorax, initial encounter (principal); K50.90 Crohn's disease, unspecified, without complications; I10 Essential (primary) hypertension; E89.0 Postprocedural hypothyroidism; E78.5 Hyperlipidemia, unspecified; F41.9 Anxiety disorder, unspecified; Z85.850 Personal history of malignant neoplasm of thyroid; Z87.442 Personal history of urinary calculi; Z87.891 Personal history of nicotine dependence; Z90.710 Acquired absence of both cervix and uterus; Z90.722 Acquired absence of ovaries, bilateral; Z90.79 Acquired absence of other genital organ(s); Z90.49 Acquired absence of other specified parts of digestive tract; W01.198A Fall on same level from slipping, tripping and stumbling with subsequent striking against other object, initial encounter
CPT/HCPCS: 71046; 71100; 96372; 99283; A9270; J1885

== ENCOUNTER 2023-06-20 09:20 | Outpatient (CLI) | payer OTHER, SELFPAY ==
--- NOTE | ~2023-06-20 | XR_ITS ---
Right wrist Technique: PA and lateral views were obtained. Clinical History: Pain COMPARISON: 08/31/2022 Findings: No acute fracture or dislocation is seen. Stable secondary ossification center chronic nonu nited fracture fragment at the ulnar styloid process tip. Stable small mineralization near the radial styloid process. Osseous alignment is anatomic. Joint spaces are preserved. Soft tissues are unremar kable. Impression: No acute abnormality. No change from prior exam. Reviewed, dictated and finalized at location . CTIVE SERGEANT Impression: No acute abnormality. No change from prior exam.
== END 2023-06-20 09:21 | disposition home or self-care (01) ==
PROVIDERS: PCP Emergency Medicine; Visit Provider Emergency Medicine
DX: M25.531 Pain in right wrist (principal)
CPT/HCPCS: 73100

== ENCOUNTER 2023-08-05 10:29 | Outpatient (CLI) | payer OTHER, SELFPAY ==
--- NOTE | ~2023-08-05 | MR_ITS ---
MRI of the right wrist Technique: Coronal T1 weighted and proton density fat sat images, and axial and sagittal proton-densi ty and proton-density fat-sat images were acquired. Clinical History: Carpal tunnel syndrome Findings: Scapholunate ligament is intact, there is no widening of the scapholunate interval. Lunotri quetral ligament is intact. TFCC is intact. There is probable mild degenerative change at the radiolunate articulation. There is an apparent 4-5 mm round loose body at the triquetral pisiform articulation region (coronal image 11, sagittal image 20). There is moderate to advanced degenerative change of the first CMC joint. There is a probable 4 mm loose body adjacent to the joint (coronal image 6, sagittal image 7). Flexor tendons, median nerve, and carpal tunnel are unremarkable. Extensor tendons are intact. No oth er soft tissue mass or fluid collection evident. IMPRESSION: Moderate to advanced degenerative change of the first CMC joint, with 4 mm loose body adjacent to the joint, as detailed above. 4-5 mm round loose body adjacent to the triquetral pisiform articulation. Mild degenerative change of the radiolunate articulation. Reviewed, dictated and finalized at location . T ARMORED RECONNAISSANCE OFFICER IMPRESSION: Moderate to advanced degenerative change of the first CMC joint, with 4 mm loos e body adjacent to the joint, as detailed above. 4-5 mm round loose body adjacent to the triquetral pisiform articulation. Mild degenerative change of the radiolunate articulation.
--- NOTE | ~2023-08-05 | MR_ITS ---
MRI of the left wrist Technique: Coronal T1 weighted and proton density fat sat images, and axial and sagittal proton-densi ty and proton-density fat-sat images were acquired. Clinical History: Carpal tunnel syndrome Findings: Scapholunate ligament is intact, and there is no widening of the scapholunate interval. Kristen otriquetral ligament is intact. TFCC is intact. Patient is status post prior ORIF of scaphoid fracture, with orthopedic hardware associated susceptib ility artifact. No suspicious bone marrow signal or fracture seen currently. There is minimal degener ative change of the first CMC joint. Remaining joint spaces appear intact. No joint effusion evident. Flexor tendons, median nerve, and carpal tunnel appear essentially unremarkable. Extensor tendons are intact. There is a 5 mm ganglion cyst interposed between the capitate and hamate (series 4 image 9). No other soft tissue mass or fluid collection seen. IMPRESSION: No distinct MR evidence for carpal tunnel syndrome. Prior ORIF of scaphoid fracture. Reviewed, dictated and finalized at location . A MAKER
== END 2023-08-05 10:30 | disposition home or self-care (01) ==
LOC: ANHIMG 10:30
PROVIDERS: PCP Emergency Medicine; Visit Provider Emergency Medicine
DX: M18.11 Unilateral primary osteoarthritis of first carpometacarpal joint, right hand (principal); M19.031 Primary osteoarthritis, right wrist; M24.08 Loose body, other site
CPT/HCPCS: 73221

== ENCOUNTER 2023-08-29 09:50 | Outpatient (CLI) | payer OTHER, SELFPAY ==
--- NOTE | 2023-08-29 11:30 | NEURO_ITS ---
Impression: # Non-diabetic complains of pain in wrist. # Normal Nerve Conduction Study # Normal needle/EMG exam. # Clinical correlation recommended. Nerve Conduction Studies Anti Sensory Summary Table Stim Site NR Peak (ms) P-T Amp (?V) Site1 Site2 Delta-P (ms) Dist (cm) Franky (m/s) Left Median Anti Sensory (2-3nd Digit) Wrist 3.0 80.1 Wrist 2-3nd Digit 3.0 14.0 47 Wrist 3.2 72.8 Wrist 2-3nd Digit 3.0 14.0 47 Right Median Anti Sensory (2-3nd Digit) Wrist 3.5 73.1 Wrist 2-3nd Digit 3.5 14.0 40 Wrist 3.4 85.2 Wrist 2-3nd Digit 3.5 14.0 40 Left Radial Anti Sensory (Base 1st Digit) Wrist 2.1 46.2 Wrist Base 1st Digit 2.1 0.0 Right Radial Anti Sensory (Base 1st Digit) Wrist 2.4 42.0 Wrist Base 1st Digit 2.4 0.0 Left Ulnar Anti Sensory (5th Digit) Wrist 2.8 84.4 Wrist 5th Digit 2.8 14.0 50 Right Ulnar Anti Sensory (5th Digit) Wrist 3.0 66.6 Wrist 5th Digit 3.0 14.0 47 Motor Summary Table Stim Site NR Onset (ms) O-P Amp (mV) Site1 Site2 Delta-0 (ms) Dist (cm) Franky (m/s) Left Median Motor (Abd Poll Brev) Wrist 2.7 5.3 Elbow Wrist 5.2 29.0 56 Elbow 7.9 7.3 Right Median Motor (Abd Poll Brev) Wrist 3.3 2.3 Elbow Wrist 5.1 29.0 57 Elbow 8.4 2.9 Left Ulnar Motor (Abd Dig Minimi) Wrist 3.0 5.4 A Elbow Wrist 4.8 27.0 56 A Elbow 7.8 5.3 Right Ulnar Motor (Abd Dig Minimi) Wrist 2.9 5.4 A Elbow Wrist 5.0 28.0 56 A Elbow 7.9 4.5 F Wave Studies NR F-Lat (ms) L-R F-Lat (ms) Left Median (Mrkrs) (Abd Poll Brev) 26.90 0.00 Right Median (Mrkrs) (Abd Poll Brev) 26.90 0.00 Left Ulnar (Mrkrs) (Abd Dig Min) 27.31 0.00 Right Ulnar (Mrkrs) (Abd Dig Min) 27.31 0.00 EMG Side Muscle Nerve Root Ins Act Fibs Amp Dur Recrt Comment Right 1stDorInt Ulnar C8-T1 Nml Nml Nml Nml Nml Right Ext Indicis Radial (Post Int) C7-8 Nml Nml Nml Nml Nml Right Ext Digitorum Radial (Post Int) C7-8 Nml Nml Nml Nml Nml Right BrachioRad Radial C5-6 Nml Nml Nml Nml Nml Right PronatorTeres Median C6-7 Nml Nml Nml Nml Nml Right Abd Poll Brev Median C8-T1 Nml Nml Nml Nml Nml Right ABD Dig Min Ulnar C8-T1 Nml Nml Nml Nml Nml Left 1stDorInt Ulnar C8-T1 Nml Nml Nml Nml Nml Left Ext Indicis Radial (Post Int) C7-8 Nml Nml Nml Nml Nml Left Ext Digitorum Radial (Post Int) C7-8 Nml Nml Nml Nml Nml Left BrachioRad Radial C5-6 Nml Nml Nml Nml Nml Left PronatorTeres Median C6-7 Nml Nml Nml Nml Nml Left Abd Poll Brev Median C8-T1 Nml Nml Nml Nml Nml Left ABD Dig Min Ulnar C8-T1 Nml Nml Nml Nml Nml MTDD
== END 2023-08-29 09:51 | disposition home or self-care (01) ==
LOC: ANHNEURO 09:52
PROVIDERS: PCP Emergency Medicine; Visit Provider Emergency Medicine
DX: R20.0 Anesthesia of skin (principal); M25.531 Pain in right wrist
CPT/HCPCS: 95886; 95911

== ENCOUNTER 2024-02-04 07:16 | Outpatient (CLI) | payer OTHER, SELFPAY ==
--- NOTE | ~2024-02-04 | CT_ITS ---
CT of the Abdomen and Pelvis: Indication: Abdominal pain Technique: 2.5 mm axial scans were obtained through the abdomen and pelvis following intravenous adm inistration of 100 cc of Omnipaque 350. Dose reduction technique was used on this scan by utilizing a utomated exposure control and iterative reconstruction technique. The dose-length product (DLP) was 2 89.08 mGy-cm. COMPARISON: 03/07/2022 Findings: Scans through the lung bases demonstrate small hiatal hernia, probable prior fundoplicatio n or hiatal hernia repair. There is diffuse hepatic steatosis. Status post cholecystectomy. The spleen, pancreas, adrenals and k idneys are within normal limits. There are atherosclerotic calcifications of the aorta. No lymphaden opathy. No bowel obstruction or bowel wall thickening. There is no evidence to suggest acute appendicitis. Images through the pelvis were performed. Urinary bladder unremarkable. No pelvic mass seen. No ascit es. Impression: No acute abnormalities seen. Postoperative changes, as above. Diffuse hepatic steatosis. Reviewed, dictated and finalized at location . Impression: No acute abnormalities seen. Postoperative changes, as above. Diffuse hepatic steatosis.
[2024-02-04 07:42] LABS: Estimated Glomerular Filt Rate > 60
== END 2024-02-04 07:17 | disposition home or self-care (01) ==
PROVIDERS: PCP Emergency Medicine; Visit Provider Emergency Medicine
DX: R10.9 Unspecified abdominal pain (principal); K76.0 Fatty (change of) liver, not elsewhere classified
CPT/HCPCS: 74177; Q9967

== ENCOUNTER 2024-05-28 11:15 | Outpatient (CLI) | payer OTHER, SELFPAY ==
[2024-05-28 11:45] LABS: Hematocrit 37.4 % (37.0-47.0); Hemoglobin 12.7 g/dL (12.0-15.0); Mean Corpuscular Hemoglobin 32.5 pg (26-34); Mean Corpuscular Volume 95.7 fl (80-100); Mean Platelet Volume 9.2 fl (7.4-10.4); Platelet Count Result 171 k/mm3 (150-375); Red Blood Count 3.91 M/mm3 (4.2-5.4); Red Cell Distribution Width 12.7 % (11.5-14.5)
[2024-05-28 12:06] LABS: Alanine Aminotransferase 23 U/L (6-35); Albumin Level 4.2 g/dL (3.5-5.1); Alkaline Phosphatase 103 U/L (38-126); Anion Gap 5 mmol/L (4-12); Aspartate Amino Transferase 31 U/L (14-36); Bilirubin,Total 0.6 mg/dL (0.2-1.3); Blood Urea Nitrogen 13 mg/dL (7-17); Calcium 9.2 mg/dL (8.4-10.2); Carbon Dioxide 23 mmol/L (22-30); Chloride 111 mmol/L (98-107); Cholesterol 218 mg/dL (0-200); Estimated Glomerular Filt Rate > 60; Glucose 109 mg/dL (65-110); HDL Direct 101 mg/dL; Potassium 3.5 mmol/L (3.4-5.0); Sodium 139 mmol/L (137-145); Triglycerides 72 mg/dL (<150)
[2024-05-28 12:17] LABS: LDL Cholesterol Direct 85 mg/dL
== END 2024-05-28 11:16 | disposition home or self-care (01) ==
LOC: ANHLAB 11:19
PROVIDERS: PCP Emergency Medicine; Visit Provider Emergency Medicine
DX: E78.5 Hyperlipidemia, unspecified (principal); E55.9 Vitamin D deficiency, unspecified; R53.83 Other fatigue; E03.9 Hypothyroidism, unspecified
CPT/HCPCS: 36415; 80053; 80061; 82306; 84443; 85027

== ENCOUNTER 2024-06-03 08:29 | Outpatient (CLI) | payer OTHER, SELFPAY ==
--- NOTE | ~2024-06-03 | MM_ITS ---
EXAMINATION: MM screening [facility] BI w maurizio HISTORY: Screening TECHNIQUE: Craniocaudal and mediolateral oblique 3-D tomosynthesis images were obtained and synthetic 2-D images were generated. CAD analysis was submitted and interpreted. COMPARISON: 08/08/2022 and dating back to 03/13/2019 BREAST PARENCHYMAL COMPOSITION: There are scattered areas of fibroglandular density. FINDINGS: Bulky calcifications within the lower inner left breast, stable and benign in appearance. Stable parenchymal pattern without suspicious microcalcifications, architectural distortion, discrete masses or significant asymmetry. IMPRESSION: 1. No mammographic evidence of malignancy. 2. Recommend routine screening mammography in one year. BI-RADS Category 2: Benign finding(s). Reviewed, dictated and finalized at location A. TH CARE ANALYST
--- OUTSIDE RECORDS SUMMARY | 2024-06-10 07:01 | XMS_ITS | Encounter Summary ---
Author Organization [facility] Address [address] [place] [address] Care Team Providers Care Grubber Name Role Phone Unavailable Primary Care Provider Unavailabl e Reason for Referral * Outpatient Services (Routine) - Closed Specialty Diagnoses / Procedures Referred By Bushraac valerio Referred To Contact Diagnoses Palpitations HTN (hypertension) LVH (left ventricular hypertrophy) Procedures CARDIAC EVENT MONITOR Alvaro Noriega MD [address] [facility] [address] [place] [address] Referral ID Status Reason Start Date Expiration Date V isits Requested Visits Authorized [id number] Closed [facility] CTS 10/29/2013 11/29/2014 1 1 Reason for Visit * Outpatient Services (Routine) - Closed Specialty Diagnoses / Procedures Referred By Contboni luo Referred To Contact Diagnoses Palpitations HTN (hypertension) LVH (left ventricular hypertrophy) Procedures CARDIAC EVENT MONITOR Alvaro Noriega MD [address] [facility] [address] [place] [address] Referral ID Status Reason Start Date Expiration Date V isits Requested Visits Authorized [id number] Closed [facility] CTS 10/29/2013 11/29/2014 1 1 Encounter Details Date Type Department Care Team (Latest Contact Info) Description 10/29/2013 2:45 PM CDT - 10/29/2013 11:59 PM CDT Hospital Encounter [facility] Diagnostic Cardiology Services [facility] [place] at [address] [place] [address] Alvaro Noriega MD [address] [facility] [address] [place] [address] Discharge Disposition: Home or Self Care Social History Tobacco Use Types Packs/Day Years Used Date Smoking Tobacco: Former Smokeless Tobacco: Never Alcohol Use Standard Drinks/Week Comments Not Asked 0 (1 standard drink = 0.6 oz pur e alcohol) Sex and Gender Information Value Date Recorded Sex Assigned at Not on file Gender Identity Not on file Sexual Orientation Not on file documented as of this encounter Medications at Time of Discharge Medication Sig Dispensed Refills Start Date End Date lisinopril (PRINIVIL) 40 mg tabletIndications:Palpitat ions,HTN (hypertension),LVH (left ventricular hypertrophy) Take 40 mg by mouth daily. metFORMIN (GLUCOPHAGE) 500 mg tabletIndications:Palpitat ions,HTN (hypertension),LVH (left ventricular hypertrophy) Take 500 mg by mouth 2 times daily with meals. metoprolol tartrate (LOPRESSOR) 100 mg tabletIndications:Palpitat ions,HTN (hypertension),LVH (left ventricular hypertrophy) Take 100 mg by mouth daily. amLODIPine (NORVASC) 5 mg tabletIndications:Palpitat ions,HTN (hypertension),LVH (left ventricular hypertrophy) Take 5 mg by mouth daily. topiramate (TOPAMAX) 50 mg tabletIndications:Palpitat ions,HTN (hypertension),LVH (left ventricular hypertrophy) Take 50 mg by mouth 2 times daily. venlafaxine (EFFEXOR) 37.5 mg tabletIndications:Palpitat ions,HTN (hypertension),LVH (left ventricular hypertrophy) Take 37.5 mg by mouth daily. hydrochlorothiazide 25 mg Oral tabletIndications:Palpitat ions,HTN (hypertension),LVH (left ventricular hypertrophy) Take 25 mg by mouth daily. amitriptyline (ELAVIL) 25 mg tabletIndications:Palpitat ions,HTN (hypertension),LVH (left ventricular hypertrophy) Take 25 mg by mouth daily at bedtime. atorvastatin (LIPITOR) 20 mg tabletIndications:Palpitat ions,HTN (hypertension),LVH (left ventricular hypertrophy) Take 20 mg by mouth Daily LATE. zolpidem (AMBIEN) 10 mg tabletIndications:Palpitat ions,HTN (hypertension),LVH (left ventricular hypertrophy) Take 10 mg by mouth nightly as needed. QUEtiapine (SEROQUEL) 50 mg tabletIndications:Palpitat ions,HTN (hypertension),LVH (left ventricular hypertrophy) Take 50 mg by mouth daily. documented as of this encounter Procedure Notes * Alvaro Noriega MD - 12/02/2013 6:22 PM CDTAssociated Order(s): CARDIAC EVENT MONITOR [place], [place] [address] Electronic Controls Repairer Supervisor Report CSN: [id number] DATE OF SERVICE: PROCEDURE PERFORMED monitor and storage bin tender, October 29 through November 27. INDICATION Tachycardia. DESCRIPTION A baseline transmission revealed normal sinus rhythm. The heart rate 62 beats per minute. On November 09, patient described rapid heartbeat which also correlated with normal sinus rhythm, heart rate 65 beats per minute. There were no other transmissions received. JPC:MEDQ DID: [id number] Dictated by: Luis Noriega M.D. documented in this encounter Plan of Treatment Not on file documented as of this encounter Procedures Procedure Name Priority Date/Time Associated Diagnosis Comments CARDIAC EVENT MONITOR Routine 12/03/2013 8:17 AM CDT Palpitations HTN (hypertension) LVH (left ventricular hypertrophy) documented in this encounter Results * CARDIAC EVENT MONITOR (12/03/2013 8:17 AM CDT) Narrative Transcriptions Alvaro Noriega MD - 12/02/2013 6:22 PM CDT [place], [place] [address] Electronic Controls Repairer Supervisor Report CSN: [id number] DATE OF SERVICE: PROCEDURE PERFORMED monitor and storage bin tender, October 29 through November 27. INDICATION Tachycardia. DESCRIPTION A baseline transmission revealed normal sinus rhythm. The heart rate 62beats per minute. On November 09, patient described rapid heartbeat whichalso correlated with normal sinus rhythm, heart rate 65 beats per minute.There were no other transmissions received. JPC:MEDQ DID:[id number] Dictated by: Luis Noriega M.D. Alvaro Noriega MD [facility] documented in this encounter Visit Diagnoses Diagnosis Palpitations HTN (hypertension) Unspecified essential hypertension LVH (left ventricular hypertrophy) Cardiomegaly documented in this encounter
--- OUTSIDE RECORDS SUMMARY | 2024-06-10 07:01 | XMS_ITS | Encounter Summary ---
Author Organization [facility] Address [facility] [facility] [place] [address] Care Team Providers Care Background Investigator Name Role Phone Tae Mcfarland MD Primary Care Provider [phone] Reason for Visit * Reason Comments Follow-up Encounter Details Date Type Department Care Team (Late st Contact Info) Description 11/03/2021 9:45 AM CDT Office Visit [facility] - Orthopedics [address] [place] [address], [place] [id number] Garret Munson MD [address] [place] [address] [place] [address] Cervicalgia (Primary Dx); Bilateral carpal tunnel syndrome Social History Tobacco Use Types Packs/Day Years Used Date Smoking Tobacco: Never Smokeless Tobacco: Never Alcohol Use Standard Drinks/Week Comments Never 0 (1 standard drink = 0.6 oz pur e alcohol) Sex and Gender Information Value Date Recorded Sex Assigned at Not on file Gender Identity Not on file Sexual Orientation Not on file documented as of this encounter Last Filed Vital Signs Vital Sign Reading Time Taken Comments Blood Pressure - - Pulse - - Temperature - - Respiratory Rate - - Oxygen Saturation - - Inhaled Oxygen Concentration - - Weight 73.9 kg (163 lb) 11/03/2021 9:38 AM CDT Height - - Body Mass Index - - documented in this encounter Patient Instructions * Patient Instructions* Nba Perla MD - 11/01/2021 1:57 PM CDT [facility] Department of Orthopaedic Surgery Orthopaedic Spine Clinic Discharge Form Karon Gaviria 11/03/2021 Thank you for coming in to see us today for your diagnosis of: Cervicalgia Bilateral carpal tunnel syndrome - Plan: Ref to Plastic Surg Hand Surgeon - [facility] Recommended Treatment: - Referral to Hand Surgery to evaluate for carpal tunnel syndrome - Wrist splints at night No further spine follow up needed. Ms. Gaviria had a clinic appointment on 11/03/2021. Please call Cathie Washburn at [phone] with any questions or concerns. documented in this encounter Progress Notes * Nba Perla MD - 11/03/2021 9:44 AM CDT Orthopedic Spine Surgery Clinic Note Karon Gaviria, 61 year old, female : 1960 CSN: [id number] Primary Care Physician: Tae Mcfarland MD Diagnosis/Procedures Concern for C2 lucency on CT at [facility] HPI Date of this clinic visit: 11/03/2021 This is a 61 year old female with history of the ab0ve who is here for a follow- up clinic appointment. Pain is located in the neck and is described as headaches without radiation. Patient also endorses numbness in her bilateral hands that wakes her from sleep at night. Patoemt denies weakness or fecal/urinary incontinence. Objective Wt 73.9 kg (163 lb) PMHx No past medical history on file. PSHx No past surgical history on file. Social Hx Social History Tobacco Use ??? Smoking status: Never Smoker ??? Smokeless tobacco: Never Used Substance Use Topics ??? Alcohol use: Never Family Hx family history is not on file. Allergies Allergies Allergen Reactions ??? Codeine Palpitations Reaction: hives, , Medications Current Outpatient Medications Medication ??? ALPRAZolam (XANAX) 0.5 MG tablet ??? amitriptyline (ELAVIL) 25 MG tablet ??? cephalexin (KEFLEX) 500 MG capsule ??? dicyclomine (BENTYL) 20 MG tablet ??? gabapentin (NEURONTIN) 300 MG capsule ??? hydroCHLOROthiazide (HYDRODIURIL) 25 MG tablet ??? HYDROcodone-acetaminophen (NORCO) 10-325 MG tablet ??? IBUPROFEN PO ??? levothyroxine (SYNTHROID) 100 MCG tablet ??? losartan (COZAAR) 50 MG tablet ??? meloxicam (MOBIC) 7.5 MG tablet ??? multivitamin daily tablet ??? ondansetron (ZOFRAN) 4 MG tablet ??? QUEtiapine (SEROQUEL) 50 MG tablet ??? sertraline (ZOLOFT) 50 MG tablet ??? tamsulosin (FLOMAX) 0.4 MG capsule ??? topiramate (TOPAMAX) 50 MG tablet ??? vitamin D3 (CHOLECALCIFEROL) 25 MCG (1000 UNITS) tablet No current facility-administered medications for this visit. Physical Exam General appearance: awake, cooperative, NAD Neck: -Tenderness to palpation: minimal -ROM: Full range of motion Posture - Erect posture with no cervical thrust, list, or torticollis noted Bilateral Upper Extremity: - Motor: Shoulder Abduction (C5) 5/5 Elbow Extension (C7) 5/5 Elbow Flexion (C5-palm up; C6 - thumb up) 5/5 Wrist Extension (C6) 5/5 Wrist Flexion (C7) 5/5 Finger Flexion (C8) 5/5 Finger Abduction (T1) 5/5 - Sensory: Intact to light touch distally - Caro's sign is negative - Reflexes: Biceps (C5/6): Normal BR (C6): Normal Bilateral Lower Extremity: - Motor: Hip Flexion (L2/3) 5/5 Knee Flexion 5/5 Knee Extension (L4) 5/5 Ankle Dorsiflexion (L5) 5/5 Great Toe Extension (L5) 5/5 Ankle Plantarflexion (S1) 5/5 - Sensation: Intact to light touch distally - Clonus: absent - Reflexes: Patellar (L4): Normal Achilles (S1): Normal Babinski: Deferred Gait - Walks with reciprocal heel/toe gait. Able to demonstrate heel walk, toe walk, and tandem gait without difficulty. Positive Durkan's test left greater than right Imaging ?? IMPRESSION: ?? 1.No significant abnormality of the cervical spine. 2.No spinal canal or foraminal stenosis. 3.Normal appearance of the cervical spinal cord. ?? This report was electronically signed by BRYON GRIMALDO M.D. on 10/31/2021 2:07 PM Assessment/Plan: Karon Gaviria is a 61 year old female with bilateral carpal tunnel symptoms - Patient was counseled to the nature of their diagnosis and demonstrated understanding. Questions solicited and answered - Referral to Hand Surgery for further evaluation of carpal tunnel symptoms - Recommend wrist bract at night - Lifting/Activity restrictions: none - Follow up ANGLE Perla MD 11/03/2021 [facility] Orthopedic Surgery office contact information: [facility] at [address], First Floor [place], [place] [id number] [facility] [address] [facility], Second Floor [place], [place] [id number] [facility] at [address], [address] [place] [address] Associated attestation - Garret Munson MD - 11/03/2021 10:23 AM CDT I personally saw, evaluated, examined and participated in the management of this patient during their clinic visit. I have reviewed all radiographic studies. I reviewed the resident's clinic note, made appropriate edits and additions and agree with the remainder of their findings. Please see their note for further details. I confirm the bolaños elements of the history. I have discussed the results ofthe physical exam and all studies with the patient. I personally developed the noted assessment anddiscussed it with them. I confirm the bolaños elements of the plan of care. Ms. Viera in the clinic today. This was a follow-up visit after her MRI cervical spine. We wanted to rule out if there is anything in her C2 body as she had some lucency. Its been reported that the MRI is within normal limits. I also see that there is no any spinal cord compression. At this point Ithink her symptoms are coming from carpal tunnel syndrome. I have referred her to our hand and upper limb colleague for the same. Please do not hesitate to contact me with questions regarding him or any other patient in the future. Our clinical specialist, Cathie Hoepfner, can be reached at [phone]. Sincerely, Garret Munson MD documented in this encounter Plan of Treatment Not on file documented as of this encounter Visit Diagnoses Diagnosis Cervicalgia- Primary Bilateral carpal tunnel syndrome Carpal tunnel syndrome documented in this encounter Care Teams Background Investigator Relationship Specialty Start Date End Date Tae Mcfarland MD [address] [id number] PCP - General 06/30/21 documented as of this encounter
--- OUTSIDE RECORDS SUMMARY | 2024-06-10 07:01 | XMS_ITS | Encounter Summary ---
Author Organization [facility] Address [address] [place] [address] Care Team Providers Care Blacktop Paver Operator Name Role Phone Sunny Redmond MD Primary Care Provider Reason for Visit * Reason Onset Date Comments Results 11/19/2013 echo Encounter Details Date Type Department Care Team (Late st Contact Info) Description 11/19/2013 Telephone [facility] Heart and Vascular - [facility] [address] [id number] [facility] [address] [place] [address] Mia Noriega MD [address] [facility] [address] [place] [address] Results (echo) Social History Tobacco Use Types Packs/Day Years Used Date Smoking Tobacco: Former Smokeless Tobacco: Never Alcohol Use Standard Drinks/Week Comments Not Asked 0 (1 standard drink = 0.6 oz pur e alcohol) Sex and Gender Information Value Date Recorded Sex Assigned at Not on file Gender Identity Not on file Sexual Orientation Not on file documented as of this encounter Miscellaneous Notes * Telephone Encounter - Sang Vance RN - 11/19/2013 10:13 AM CDT Left msg on recorder. ------ Message from: MIA NORIEGA Created: SunNov 17, 2013 9:42 AM Echo normal ------ documented in this encounter Plan of Treatment Not on file documented as of this encounter Visit Diagnoses Not on filedocumented in this encounter Care Teams Blacktop Paver Operator Relationship Specialty Start Date End Date Sunny Redmond MD PCP - General Family Practice 11/13/13 documented as of this encounter
--- OUTSIDE RECORDS SUMMARY | 2024-06-10 07:01 | XMS_ITS | Patient Health Summary ---
Author Organization [facility] Address [address] [place] [address] Care Team Providers Care Plate Inspector Name Role Phone Tae Mcfarland MD Primary Care Provider [phone] Note from [facility],non-owned Affiliates and Associated Physician Practices is amultiple site organization consisting of ambulatory clinics and hospital sitesin [place], [place], [place] and [place]. This disclosure is being madepursuant to the Care Everywhere program and may not contain all information available regarding this patient. Last updated 18.[facility] Allergies * Codeine(Palpitations) Medications * Be aware that medications may not be up to date on this document. Alwaysverify current medications with the patient. * cephalexin (KEFLEX) 500 MG capsule(Started 05/09/2021) Take 500 mg by mouth every 12 hours * ondansetron (ZOFRAN) 4 MG tablet(Started 02/09/2021) Take 4 mg by mouth * levothyroxine (SYNTHROID) 100 MCG tablet(Started 07/15/2021) Take 100 mcg by mouth once daily * losartan (COZAAR) 50 MG tablet(Started 05/05/2021) Take 50 mg by mouth once daily * hydroCHLOROthiazide (HYDRODIURIL) 25 MG tablet Take 25 mg by mouth once daily * amitriptyline (ELAVIL) 25 MG tablet Take 25 mg by mouth at bedtime * dicyclomine (BENTYL) 20 MG tablet(Started 08/06/2021) Take 20 mg by mouth once daily * ALPRAZolam (XANAX) 0.5 MG tablet(Started 08/09/2021) Take 0.5 mg by mouth 3 times daily as needed * topiramate (TOPAMAX) 50 MG tablet Take 50 mg by mouth 2 times daily * vitamin D3 (CHOLECALCIFEROL) 25 MCG (1000 UNITS) tablet Take 1,000 Units by mouth once daily * multivitamin daily tablet Take 1 tablet by mouth daily with food * gabapentin (NEURONTIN) 300 MG capsule Take 300 mg by mouth 3 times daily * IBUPROFEN PO * DULoxetine (CYMBALTA) 60 MG capsule(Started 12/01/2021) * eszopiclone (LUNESTA) 2 MG tablet(Started 11/11/2021) * zaleplon (SONATA) 5 MG capsule(Started 11/25/2021) * amLODIPine (NORVASC) 5 MG tablet(Started 12/14/2021) Active Problems No known active problems Social History Tobacco Use Types Packs/Day Years Used Date Smoking Tobacco: Never Smokeless Tobacco: Never Alcohol Use Standard Drinks/Week Comments Never 0 (1 standard drink = 0.6 oz pur e alcohol) Sex and Gender Information Value Date Recorded Sex Assigned at Not on file Gender Identity Not on file Sexual Orientation Not on file Last Filed Vital Signs Vital Sign Reading Time Taken Comments Blood Pressure 122/82 08/26/2021 8:15 AM CDT Pulse 80 08/26/2021 8:15 AM CDT Temperature 36.6 ??C (97.8 ??F) 08/26/2021 8:15 AM CD T Respiratory Rate - - Oxygen Saturation 98% 08/26/2021 8:15 AM CDT Inhaled Oxygen Concentration - - Weight 73.9 kg (163 lb) 11/03/2021 9:38 AM CDT Height - - Body Mass Index - - Procedures * MRI CERVICAL SPINE WWO CONT(Performed 10/29/2021) Performed for Cervical pain (neck) * CREATININE - POCT INTERFACED(Performed 10/29/2021) * XR CERVICAL SPINE 2 OR 3VW(Performed 10/20/2021) Performed for Cervicalgia Results * MRI CERVICAL SPINE WWO CONT (10/29/2021 3:07 PM CDT) Anatomical Region Laterality Modality Spine Magnetic Resonan ce 10/31/2021 2:04 PM CDT Impressions 10/31/2021 2:07 PM CDT IMPRESSION: 1.No significant abnormality of the cervical spine. 2.No spinal canal or foraminal stenosis. 3.Normal appearance of the cervical spinal cord. This report was electronically signed by BEKAH VELIZ M.D. ??on 10/31/2021 2:07 PM . Narrative 10/31/2021 2:07 PM CDT Contrast enhanced MRI of cervical spine INDICATION: M54.2: Cervical pain (neck) TECHNIQUE: MRI of the cervical spine was obtained without and with intravenous contrast according to standard protocol. 7 mL of Gadavist was administered intravenously. COMPARISON: Cervical spine radiographs from 10/20/2021 were reviewed. FINDINGS: The spine curvature is maintained without subluxation. The vertebrae are normal in height. There are no aggressive appearing bone marrow lesions. There is no epidural fluid collection or abnormal enhancement. Minor degenerative changes are seen without spinal canal or foraminal stenosis. The spinal cord is unremarkable without signal abnormality or compression. The prevertebral and paraspinal soft tissues are within normal limits. Procedure Note Bekah Veliz MD - 10/31/2021 Contrast enhanced MRI of cervical spine INDICATION: M54.2: Cervical pain (neck) TECHNIQUE: MRI of the cervical spine was obtained without and with intravenous contrast according to standard protocol. 7 mL of Gadavistwas administered intravenously. COMPARISON: Cervical spine radiographs from 10/20/2021 were reviewed. FINDINGS: The spine curvature is maintained without subluxation. The vertebrae are normal in height. There are no aggressive appearing bone marrow lesions. There is no epidural fluid collection or abnormal enhancement. Minor degenerative changes are seen without spinal canal or foraminalstenosis. The spinal cord is unremarkable without signal abnormality orcompression. The prevertebral and paraspinal soft tissues are within normal limits. IMPRESSION: 1.No significant abnormality of the cervical spine. 2.No spinal canal or foraminal stenosis. 3.Normal appearance of the cervical spinal cord. This report was electronically signed by BEKAH VELIZ M.D. on 10/31/2021 2:07 PM . Garret Munson MD MR ORDERABLES * CREATININE - POCT INTERFACED (10/29/2021 1:59 PM CDT) Creatinine POCT 0.68 0.30 - 1.30 mg/dL 10/29/2021 5:32 PM CDT [facility] eGFR >90 >90 mL/min/1.7 3 m2 10/29/2021 5:32 PM CDT [facility] Blood BLOOD SPECIMEN / Unknown 10/29/2021 1:59 PM CDT 10/29/2021 5:32 PM CDT Garret Munson MD LAB - POINT OF CARE ORDERABLES [address] [address], [facility] [phone] * XR CERVICAL SPINE 2 OR 3VW (10/20/2021 10:23 AM CDT) Anatomical Region Laterality Modality Spine Radiographic Yumiko ging 10/20/2021 10:2 8 AM CDT Impressions 10/20/2021 12:13 PM CDT IMPRESSION: Mild degenerative disease C4-5. Report dictated by Devaughn Zamora DO (residential door unit installer) I, Dr. VIVI MC have personally reviewed and interpreted this examination/study. This report was electronically signed by VIVI MC ??on 10/20/2021 12:13 PM . Narrative 10/20/2021 12:13 PM CDT EXAMINATION: XR CERVICAL SPINE 2 OR 3VW HISTORY: M54.2: Cervicalgia COMPARISON: No prior study is available for comparison. FINDINGS: The vertebral bodies are normally aligned. No acute fracture or compression deformity is identified. Mild multilevel degenerative disc disease most prominent at C4-5. The prevertebral soft tissues are normal. Procedure Note Vivi Mc MD - 10/20/2021 EXAMINATION: XR CERVICAL SPINE 2 OR 3VW HISTORY: M54.2: Cervicalgia COMPARISON: No prior study is available for comparison. FINDINGS: The vertebral bodies are normally aligned. No acute fracture or compression deformity is identified. Mild multilevel degenerative disc disease most prominent at C4-5. The prevertebral soft tissues arenormal. 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 Report dictated by Devaughn Zamora DO (residential door unit installer) I, Dr. VIVI MC have personally reviewed and interpreted this examination/study. This report was electronically signed by VIVI MC on 10/20/2021 12:13 PM . Garret Munson MD [facility] Care Teams Plate Inspector Relationship Specialty Start Date End Date Tae Mcfarland MD [address] [place] [id number] PCP - General 06/30/21
--- OUTSIDE RECORDS SUMMARY | 2024-06-10 07:01 | XMS_ITS | Referral Summary ---
Author Organization [facility] Address [address] [place] [address] Care Team Providers Care Derrick Man Name Role Phone Tae Mcfarland MD Primary Care Provider [phone] Source Comments [facility],non-owned Affiliates and Associated Physician Practices is amultiple site organization consisting of ambulatory clinics and hospital sitesin [place], [place], [place] and [place]. This disclosure is being madepursuant to the Care Everywhere program and may not contain all information available regarding this patient. Last updated 18.[facility] Allergies Active Allergy Reactions Criticality Noted Date Comments Codeine Palpitations 04/10/2021 Reaction: hives, , Medications * Be aware that medications may not be up to date on this document. Alwaysverify current medications with the patient. Medication Sig Dispensed Refills Start Date End Date Status cephalexin (KEFLEX) 500 MG capsule Take 500 mg by mouth every 12 hours 05/09/2021 Active ondansetron (ZOFRAN) 4 MG tablet Take 4 mg by mouth 02/09/2021 Active levothyroxine (SYNTHROID) 100 MCG tablet Take 100 mcg by mouth once daily 07/15/2021 Active losartan (COZAAR) 50 MG tablet Take 50 mg by mouth once daily 05/05/2021 Active hydroCHLOROthiazide (HYDRODIURIL) 25 MG tablet Take 25 mg by mouth once daily Active amitriptyline (ELAVIL) 25 MG tablet Take 25 mg by mouth at bedtime Active dicyclomine (BENTYL) 20 MG tablet Take 20 mg by mouth once daily 08/06/2021 Active ALPRAZolam (XANAX) 0.5 MG tablet Take 0.5 mg by mouth 3 times daily as needed 08/09/2021 Active topiramate (TOPAMAX) 50 MG tablet Take 50 mg by mouth 2 times daily Active vitamin D3 (CHOLECALCIFEROL) 25 MCG (1000 UNITS) tablet Take 1,000 Units by mouth once daily Active multivitamin daily tablet Take 1 tablet by mouth daily with food Active gabapentin (NEURONTIN) 300 MG capsule Take 300 mg by mouth 3 times daily Active IBUPROFEN PO Active DULoxetine (CYMBALTA) 60 MG capsule 12/01/2021 Active eszopiclone (LUNESTA) 2 MG tablet 11/11/2021 Active zaleplon (SONATA) 5 MG capsule 11/25/2021 Active amLODIPine (NORVASC) 5 MG tablet 12/14/2021 Active Active Problems No known active problems Social [...] - - Body Mass Index - - Plan of Treatment Not on file Care Teams Derrick Man Relationship Specialty Start Date End Date Tae Mcfarland MD [address] [place] [id number] PCP - General 06/30/21
--- OUTSIDE RECORDS SUMMARY | 2024-06-10 07:01 | XMS_ITS | Encounter Summary ---
Author Organization [facility] Address [address] [place] [address] Care Team Providers Care Hyperbaric Welder Diver Name Role Phone Tae Mcfarland MD Primary Care Provider [phone] Encounter Details Date Type Department Care Team (Late st Contact Info) Description 10/20/2021 10:15 AM CDT - 10/20/2021 11:59 PM T Hospital Encounter [facility] DIAGNOSTIC RAD [facility] [address] [place] [address] Garret Munson MD [address] [facility] [place] [address] Discharge Disposition: Home or Self Care Social [...] Sig Dispensed Refills Start Date End Date ALPRAZolam (XANAX) 0.5 MG tablet Take 0.5 mg by mouth 3 times daily as needed 08/09/2021 amitriptyline (ELAVIL) 25 MG tablet Take 25 mg by mouth at bedtime cephalexin (KEFLEX) 500 MG capsule Take 500 mg by mouth every 12 hours 05/09/2021 dicyclomine (BENTYL) 20 MG tablet Take 20 mg by mouth once daily 08/06/2021 gabapentin (NEURONTIN) 300 MG capsule Take 300 mg by mouth 3 times daily hydroCHLOROthiazide (HYDRODIURIL) 25 MG tablet Take 25 mg by mouth once daily IBUPROFEN PO levothyroxine (SYNTHROID) 100 MCG tablet Take 100 mcg by mouth once daily 07/15/2021 losartan (COZAAR) 50 MG tablet Take 50 mg by mouth once daily 05/05/2021 multivitamin daily tablet Take 1 tablet by mouth daily with food ondansetron (ZOFRAN) 4 MG tablet Take 4 mg by mouth 02/09/2021 topiramate (TOPAMAX) 50 MG tablet Take 50 mg by mouth 2 times daily vitamin D3 (CHOLECALCIFEROL) 25 MCG (1000 UNITS) tablet Take 1,000 Units by mouth once daily HYDROcodone-acetaminophe n (NORCO) 10-325 MG tablet TAKE 1/2 TO 1 TABLET BY MOUTH EVERY 4 HOURS NEEDED FOR PAIN 05/09/2021 12/16/2021 meloxicam (MOBIC) 7.5 MG tablet Take 7.5 mg by mouth 2 times daily 12/16/2021 QUEtiapine (SEROQUEL) 50 MG tablet Take 50 mg by mouth once daily 12/16/2021 sertraline (ZOLOFT) 50 MG tablet Take 50 mg by mouth 06/30/2021 12/17/19 tamsulosin (FLOMAX) 0.4 MG capsule Take 0.4 mg by mouth once daily 05/09/2021 12/16/2021 documented as of this encounter Plan of Treatment Not on file documented as of this encounter Procedures Procedure Name Priority Date/Time Associated Diagnosis Comments XR CERVICAL SPINE 2 OR 3VW Routine 10/20/2021 10:23 AM CDT Cervicalgia documented in this encounter Results * XR CERVICAL SPINE 2 OR 3VW (10/20/2021 10:23 AM CDT) Anatomical Region Laterality Modality Spine Radiographic Yumiko ging 10/20/2021 10:2 8 AM CDT Impressions 10/20/2021 12:13 PM CDT IMPRESSION: Mild degenerative disease C4-5. Report dictated by Devaughn Zamora DO (cmo & president) I, Dr. VIVI MC have personally reviewed and interpreted this examination/study. This report was electronically signed by VIVI Diamond?on 10/20/2021 12:13 PM . Narrative 10/20/2021 12:13 [...] C4-5. Report dictated by Devaughn Zamora DO (cmo & president) I, Dr. VIVI MC have personally reviewed and interpreted this examination/study. This report was electronically signed by VIVI MC on 10/20/2021 12:13 PM . Garret Munson MD DIAGNOSTIC IMAGING O [facility] documented in this encounter Visit Diagnoses Diagnosis Cervicalgia documented in this encounter Care Teams Hyperbaric Welder Diver Relationship Specialty Start Date End Date Tae Mcfarland MD [address] [place] [id number] PCP - General 06/30/21 documented as of this encounter
--- OUTSIDE RECORDS SUMMARY | 2024-06-10 07:01 | XMS_ITS | Encounter Summary ---
Author Organization [facility] Address [address] [place] [address] Care Team Providers Care Bus Assistant Name Role Phone Sunny Redmond MD Primary Care Provider Reason for Referral * Outpatient Services (Routine) - Closed Specialty Diagnoses / Procedures Referred By Contac t Referred To Contact Diagnoses Palpitations HTN (hypertension) LVH (left ventricular hypertrophy) Procedures ECHO COMPLETE Alvaro Noriega MD [address] [facility] [address] [place] [address] Referral ID Status Reason Start Date Expiration Date V isits Requested Visits Authorized [id number] Closed [facility] CTS 10/29/2013 11/27/2013 1 1 Reason for Visit * Outpatient Services (Routine) - Closed Specialty Diagnoses / Procedures Referred By Contac t Referred To Contact Diagnoses Palpitations HTN (hypertension) LVH (left ventricular hypertrophy) Procedures ECHO Alvaro Clemente MD [address] [facility] [address] [place] [address] Referral ID Status Reason Start Date Expiration Date V isits Requested Visits Authorized [id number] Closed [facility] CTS 10/29/2013 11/27/2013 1 1 Encounter Details Date Type Department Care Team (Latest Contact Info) Description 11/13/2013 9:59 AM CDT - 11/13/2013 11:59 PM CDT Hospital Encounter [facility] Diagnostic Cardiology Services [phone] [address] [place] [address] Alvaro Noriega MD [address] [facility] [address] [place] [address] Discharge Disposition: Home or Self Care Social [...] mouth daily. documented as of this encounter Plan of Treatment Not on file documented as of this encounter Procedures Procedure Name Priority Date/Time Associated Diagnosis Comments ECHO COMPLETE Routine 11/13/2013 11:35 AM CDT Palpitations HTN (hypertension) LVH (left ventricular hypertrophy) documented in this encounter Results * ECHO COMPLETE (11/13/2013 11:35 AM CDT) EJECTION FRACTION 59 INTERFACE SYSTEM 11/13/2013 10:3 0 AM CDT Narrative INTERFACE SYSTEM - 11/14/2013 10:56 [place] [address] [email or web address] Transthoracic Echocardiography Patient: ? Karon Gaviria MRN: ? [id number] Study ID: ?[id number] Gender: ?F : ? 1960 Age: ? 53 Race: ?CAU Height ? 154.9cm Study Date: ?11/13/2013 Weight: ?77.1kg Access. #: ? [id number] Account #: ? [id number] BP: ?100 / 65 *Referring Physician:* Luis Noriega *Ordering Physician:* ??Luis Noriega Filter Tank Tender: ? VM Indications: Mitral regurgitation. ??Chronic hypertension. ??Palpitations. STUDY CONCLUSIONS: SUMMARY: - Left ventricle: The cavity size was normal. Wall thickness ??was normal. Global systolic function was normal. The ??estimated ejection fraction was 59%. - Mitral valve: Mild regurgitation. - Left atrium: The atrium was normal in size. - Right ventricle: The cavity size was normal. Systolic ??function was normal. Cardiac Anatomy: LEFT VENTRICLE: ??The cavity size was normal. Wall thickness was normal. Global systolic function was normal. The estimated ejection fraction was 59%. Diastolic function assessment consistent with abnormal left ventricular relaxation (grade 1 diastolic dysfunction). AORTIC VALVE: ?? Structurally normal valve. Trileaflet. Doppler: ?? No significant regurgitation. ?VTI ratio of LVOT to aortic valve: 0.71. Valve area: 2.24cm\S\2(VTI). Indexed valve area: 1.21cm\S\2/m\S\2 (VTI). ?Mean gradient: 3mm Hg (S). Peak gradient: 6mm Hg (S). AORTA: ??Aortic root: The aortic root was normal in size. MITRAL VALVE: ?? Structurally normal valve. ?Doppler: Mild regurgitation. ?Mean gradient: 2mm Hg (D). Peak gradient: 3mm Hg (D). LEFT ATRIUM: ??The atrium was normal in size. RIGHT VENTRICLE: ??The cavity size was normal. Systolic function was normal. PULMONIC VALVE: ?? Structurally normal valve. ?Doppler: No significant regurgitation. TRICUSPID VALVE: ?? Structurally normal valve. ?Doppler: Mild regurgitation. RIGHT ATRIUM: ??The atrium was normal in size. PERICARDIUM: ??There was no pericardial effusion. SYSTEMIC VEINS: Inferior vena cava: The vessel was normal in size. 2D measurements ?Normal Left ventricle LV internal dimension, ED, chordal ? 45.2 mm ? 43-52 level, PLAX LV internal dimension, ES, chordal ? 30.2 mm ? 23-38 level, PLAX Fractional shortening, chordal level, ?33 % ?>29 PLAX LV posterior wall thickness, ED ? 9.9 mm ? ------- IVS/LVPW ratio, ED ? 1.03 ?<1.3 Volume, ED, MOD, 2-plane ?*49 ml ? 55-101 Volume, ES, MOD, 2-plane ? 20 ml ? ------- Ejection fraction, MOD, 2-plane ?59 % ?------- Volume index, ED, MOD, 2-plane ? 26 ml/m\S\2 ?? ------- Volume index, ES, MOD, 2-plane ? 11 ml/m\S\2 ?? ------- Ventricular septum Septal thickness, ED ? 10.2 mm ? ------- LVOT Anterior-posterior diameter ? 2 mm ? ------- Area ? 3.14 cm\S\2 ? ------- Aorta Root diameter, ED ?27 mm ? ------- Left atrium Anterior-posterior dimension ? 36 mm ? ------- Anterior-posterior dimension index ? 1.94 cm/m\S\2 ?? <2.2 Doppler measurements ? Normal LVOT VTI, S ? 19.4 cm ? ------- Aortic valve Peak velocity, S ?120 cm/s ? ------- VTI, S ? 27.2 cm ? ------- Mean gradient, S ?3 mm Hg ?------- Peak gradient, S ?6 mm Hg ?------- VTI ratio, LVOT/AV ? 0.71 ?------- Valve area, VTI ?2.24 cm\S\2 ? ------- Valve area index, VTI ?1.21 cm\S\2/m\S\2 ------- Mitral valve Peak E-wave velocity ? 60.2 cm/s ? ------- Peak A-wave velocity ? 71.6 cm/s ? ------- Deceleration time ?*246 ms ? 150-230 Mean gradient, D ?2 mm Hg ?------- Peak gradient, D ?3 mm Hg ?------- Peak E/A ratio ? 0.84 ?------- Maximal regurgitant velocity ? 74.4 cm/s ? ------- Tricuspid valve Regurgitant peak velocity ? 220 cm/s ? ------- Peak RV-RA gradient, S ? 19 mm Hg ?------- Legend: Mean values are shown as u=mean value. Asterisk (*) faust values outside specified normal range. Procedure data: Procedure information: ??Transthoracic echocardiography. Scanning was performed from the parasternal, apical, and subcostal acoustic windows. ?Transthoracic echocardiography. ??Complete 2D, complete spectral Doppler, and color Doppler. ??Birthdate: ??Patient birthdate: 1960. ??Age: ??Patient is 53yr old. ??Sex: ??Gender: female. Height: ??Height: 154.9cm. Height: 61in. ??Weight: ??Weight: 77.1kg. Weight: 169.6lb. ??Body mass index: ??BMI: 32.1kg/m\S\2. Body surface area: ?BSA: 1.85m\S\2. ??Blood pressure: 100/65. ??Study date: ??Study date: November 13, 2013. Prepared and Electronically Authenticated Irvin Landry M.D.. [id number] Procedure Note Irvin Landry MD - 11/14/2013 [place] [address] [email or web address] Transthoracic Echocardiography Patient: Karon Gaviria Study ID: [id number] Gender: F : 1960 Age: 53 Race: CAU Height 154.9cm Study Date: 11/13/2013 Weight: 77.1kg Access. #: [id number] BP: 100 / 65 *Referring Physician:* Luis Noriega *Ordering Physician:* Luis Noriega Filter Tank Tender: LIANET Indications: Mitral regurgitation. Chronic hypertension. Palpitations. STUDY CONCLUSIONS: SUMMARY: - Left ventricle: The cavity size was normal. Wall thickness was normal. Global systolic function was normal. The estimated ejection fraction was 59%. - Mitral valve: Mild regurgitation. - Left atrium: The atrium was normal in size. - Right ventricle: The cavity size was normal. Systolic function was normal. Cardiac Anatomy: LEFT VENTRICLE: The cavity size was normal. Wall thickness was normal. Global systolic function was normal. The estimated ejection fraction was 59%. Diastolic function assessment consistent with abnormal left ventricular relaxation (grade 1 diastolic dysfunction). AORTIC VALVE: Structurally normal valve. Trileaflet. Doppler: No significant regurgitation. VTI ratio of LVOT to aortic valve: 0.71. Valve area: 2.24cm\S\2(VTI). Indexed valve area: 1.21cm\S\2/m\S\2 (VTI). Mean gradient: 3mm Hg (S). Peak gradient: 6mm Hg (S). AORTA: Aortic root: The aortic root was normal in size. MITRAL VALVE: Structurally normal valve. Doppler: Mild regurgitation. Mean gradient: 2mm Hg (D). Peak gradient: 3mm Hg (D). LEFT ATRIUM: The atrium was normal in size. RIGHT VENTRICLE: The cavity size was normal. Systolic function was normal. PULMONIC VALVE: Structurally normal valve. Doppler: No significant regurgitation. TRICUSPID VALVE: Structurally normal valve. Doppler: Mild regurgitation. RIGHT ATRIUM: The atrium was normal in size. PERICARDIUM: There was no pericardial effusion. SYSTEMIC VEINS: Inferior vena cava: The vessel was normal in size. 2D measurements Normal Left ventricle LV internal dimension, ED, chordal 45.2 mm 43-52 level, PLAX LV internal dimension, ES, chordal 30.2 mm 23-38 level, PLAX Fractional shortening, chordal level, 33 % >29 PLAX LV posterior wall thickness, ED 9.9 mm ------- IVS/LVPW ratio, ED 1.03 <1.3 Volume, ED, MOD, 2-plane *49 ml 55-101 Volume, ES, MOD, 2-plane 20 ml ------- Ejection fraction, MOD, 2-plane 59 % ------- Volume index, ED, MOD, 2-plane 26 ml/m\S\2 ------- Volume index, ES, MOD, 2-plane 11 ml/m\S\2 ------- Ventricular septum Septal thickness, ED 10.2 mm ------- LVOT Anterior-posterior diameter 2 mm ------- Area 3.14 cm\S\2 ------- Aorta Root diameter, ED 27 mm ------- Left atrium Anterior-posterior dimension 36 mm ------- Anterior-posterior dimension index 1.94 cm/m\S\2 <2.2 Doppler measurements Normal LVOT VTI, S 19.4 cm ------- Aortic valve Peak velocity, S 120 cm/s ------- VTI, S 27.2 cm ------- Mean gradient, S 3 mm Hg ------- Peak gradient, S 6 mm Hg ------- VTI ratio, LVOT/AV 0.71 ------- Valve area, VTI 2.24 cm\S\2 ------- Valve area index, VTI 1.21 cm\S\2/m\S\2 ------- Mitral valve Peak E-wave velocity 60.2 cm/s ------- Peak A-wave velocity 71.6 cm/s ------- Deceleration time *246 ms 150-230 Mean gradient, D 2 mm Hg ------- Peak gradient, D 3 mm Hg ------- Peak E/A ratio 0.84 ------- Maximal regurgitant velocity 74.4 cm/s ------- Tricuspid valve Regurgitant peak velocity 220 cm/s ------- Peak RV-RA gradient, S 19 mm Hg ------- Legend: Mean values are shown as u=mean value. Asterisk (*) faust values outside specified normal range. Procedure data: Procedure information: Transthoracic echocardiography. Scanning was performed from the parasternal, apical, and subcostal acoustic windows. Transthoracic echocardiography. Complete 2D, complete spectral Doppler, and color Doppler. Birthdate: Patient birthdate: 1960. Age: Patient is 53yr old. Sex: Gender: female. Height: Height: 154.9cm. Height: 61in. Weight: Weight: 77.1kg. Weight: 169.6lb. Body mass index: BMI: 32.1kg/m\S\2. Body surface area: BSA: 1.85m\S\2. Blood pressure: 100/65. Study date: Study date: November 13, 2013. Prepared and Electronically Authenticated Irvin Landry M.D. [id number] Alvaro Noriega MD ORDERABLES INTERFACE SYSTEM Refer to clinic/hospital department documented in this encounter Visit Diagnoses Diagnosis Palpitations HTN (hypertension) Unspecified essential hypertension LVH (left ventricular hypertrophy) Cardiomegaly documented in this encounter Care Teams Bus Assistant Relationship Specialty Start Date End Date Sunny Redmond MD PCP - General Family Practice 11/13/13 documented as of this encounter
--- OUTSIDE RECORDS SUMMARY | 2024-06-10 07:01 | XMS_ITS | Encounter Summary ---
Author Organization [facility] Address [facility] [place] [address] Care Team Providers Care Golf Course Mechanic Name Role Phone Tae Mcfarland MD Primary Care Provider + [phone] Reason for Visit * Reason Comments Pain Hand Encounter Details Date Type Department Care Team (Late st Contact Info) Description 12/16/2021 9:15 AM CDT Office Visit [facility] - Orthopedics [address] [place] [address], [place] [phone] Angie Gleason PA-C [address] [place] [phone] Paresthesia of both hands (Primary Dx) Social History Tobacco Use Types Packs/Day Years Used Date Smoking Tobacco: Never Smokeless Tobacco: Never Alcohol Use Standard Drinks/Week Comments Never 0 (1 standard drink = 0.6 oz pur e alcohol) Sex and Gender Information Value Date Recorded Sex Assigned at Not on file Gender Identity Not on file Sexual Orientation Not on file documented as of this encounter Progress Notes * Angie Gleason PA-C - 12/16/2021 9:10 AM CDT ORTHOPEDIC SURGERY / HAND SURGERY / MICROSURGERY OUTPATIENT FOLLOW UP Karon Gaviria 61 year old female CSN: [id number] Date of service: 12/16/2021 HPI Ms. Gaviria is a 61 year old female RHD presenting for evaluation of bilateral hand pain and numbnessthat is worse at nighttime for the past year. Pt also notes her fingers go numb when the elbows have been flexed while talking on the phone. 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 Pt was referred by Dr. Munson for concern of carpal tunnel syndrome after recent C-spine MRI showedno pathology. PMHx No past medical history on file. [...] ??? amitriptyline (ELAVIL) 25 MG tablet ??? amLODIPine (NORVASC) 5 MG tablet ??? cephalexin (KEFLEX) 500 MG capsule ??? dicyclomine (BENTYL) 20 MG tablet ??? DULoxetine (CYMBALTA) 60 MG capsule ??? eszopiclone (LUNESTA) 2 MG tablet ??? gabapentin (NEURONTIN) 300 MG capsule ??? hydroCHLOROthiazide (HYDRODIURIL) 25 MG tablet ??? IBUPROFEN PO ??? levothyroxine (SYNTHROID) 100 MCG tablet ??? losartan (COZAAR) 50 MG tablet ??? multivitamin daily tablet ??? ondansetron (ZOFRAN) 4 MG tablet ??? topiramate (TOPAMAX) 50 MG tablet ??? vitamin D3 (CHOLECALCIFEROL) 25 MCG (1000 UNITS) tablet ??? zaleplon (SONATA) 5 MG capsule No current facility-administered medications for this visit. Vitals There were no vitals taken for this visit. Physical Exam General appearance: alert, cooperative, no distress bilateral upper extremity examination: Inspection: -Incision/Flap: n/a -swelling: none -open wound: No Perfusion: -warm, well perfused upper limb, with normal capillary refill Sensation: -intact to light touch in R/M/U nerve Motor: -Stiffness: No -ROM: full in wrists and hands -Pulp to DPC: intact Additional findings: Positive durkan test on right. Negative tinel to bilateral cubital tunnel and carpal tunnels. Bilateral thenar atrophy present. Strength 5/5 in R/M/U nerve. Imaging Images independently reviewed in clinic: MRI C-spine 10/29/21: IMPRESSION: ?? 1.No significant abnormality of the cervical spine. 2.No spinal canal or foraminal stenosis. 3.Normal appearance of the cervical spinal cord. Assessment and Plan 61 year old female presents with bilateral arm pain and hand paresthesias concerning for carpal tunnel syndrome and cubital tunnel syndrome 1. Ms. Gaviria was counseled as to her diagnosis and demonstrated understanding 2. Recommendations: 1. Obtain EMG/NCV 3. Restrictions: none 4. Follow up with Angie Gleason PA-C: after EMG 5. She will call in the interim with any questions or concerns. XR needed at follow up: NO Angie Gleason PA-C 12/16/2021 9:10 AM * Jolene Martell RN - 12/16/2021 8:40 AM CDT Pain is located B hand and is described as numbness and aching for the last year. Patient pain is 6/10, worse at night with shooting pain into her elbow Symptoms worsen with nothing. Symptoms are relieved with nothing. Pt has not tried bracing or had an EMG. documented in this encounter Plan of Treatment Not on file documented as of this encounter Visit Diagnoses Diagnosis Paresthesia of both hands- Primary documented in this encounter Care Teams Golf Course Mechanic Relationship Specialty Start Date End Date Tae Mcfarland MD [address] [address] PCP - General 06/30/21 documented as of this encounter
--- OUTSIDE RECORDS SUMMARY | 2024-06-10 07:01 | XMS_ITS | Clinical Summary ---
Author Organization [facility] Address [address] [facility] [place] [address] Care Team Providers Care Car Repossessor Name Role Phone Tae Mcfarland MD Primary Care Provider [phone] Source Comments [facility],non-owned Affiliates and Associated Physician Practices is amultiple site organization consisting of ambulatory clinics and hospital sitesin [place], [place], [place] and [place]. This disclosure is being madepursuant to the Care Everywhere program and may not contain all information available regarding this patient. Last updated 18.[facility] Allergies Active Allergy Reactions Criticality Noted Date [...] Mass Index - - Plan of Treatment Health Maintenance Due Date Last Done Comments COLOGUARD (AGES 45-75) - COL ON CA SCREENING 1960 COLON MONITORING 1960 COLONOSCOPY - COLON CA SCREENING 1960 CT COLONOGRAPHY - COLON CA SCREENING 1960 Colorectal Cancer Screening 1960 FIT - COLON CA SCREENING 1960 FLEX SIG - COLON CA SCREENING 1960 LIPID TESTING 1960 MAMMOGRAM 1960 PAP SMEAR 1960 HIV SCREENING 1975 HEPATITIS C SCREENING 04/22/1978 DTAP/TDAP/TD VACCINES (1 - Tdap) 1979 ZOSTER VACCINE (1 of 2) 2010 DEPRESSION SCREENING 06/11/2023 COVID-19 VACCINE (1 - 2023-2 5 season) 2024 INFLUENZA VACCINE (#1) 2024 Respiratory Syncytial Virus (RSV) Vaccine Pt: or over 60 yrs (1 - 1-dose 75+ series) 2035 HEPATITIS B VACCINE Aged Out No longe r eligible based on patient's age to complete this topic HIB VACCINE Aged Out No longer eligi ble based on patient's age to complete this topic HPV VACCINE Aged Out No longer eligi ble based on patient's age to complete this topic MENINGOCOCCAL VACCINE Aged Out No sergio joshua eligible based on patient's age to complete this topic PNEUMOCOCCAL VACCINE Aged Out No long er eligible based on patient's age to complete this topic Care Teams Car Repossessor Relationship Specialty Start Date End Date Tae Mcfarland MD [address] [place] [id number] PCP - General 06/30/21
--- OUTSIDE RECORDS SUMMARY | 2024-06-10 07:01 | XMS_ITS | Encounter Summary ---
Author Organization [facility] Address [address] [facility] [place] [address] Care Team Providers Care Suit Maker Name Role Phone Tae Mcfarland MD Primary Care Provider + [phone] Reason for Visit * Reason Comments Establish Care Headache * Consult, Test & Treat (Routine) - Closed Specialty Diagnoses / Procedures Referred By Phong beach Referred To Contact Neurology Diagnoses Post-traumatic headache, unspecified, not intractable Unspecified injury of head, sequela Tae Mcfarland MD [address] [facility] [address] [place] [address] Phone: [phone] Fax: [phone] Referral ID Status Reason Start Date Expiration Date Visits Re quested Visits Authorized [id number] Closed 06/24/2021 06/24/2022 1 1 Encounter Details Date Type Department Care Team (Late st Contact Info) Description 08/26/2021 8:30 AM CDT Office Visit [facility] Neurology [address] [facility], [place] [address] Andre Soto APRN-MALGORZATA [address] [place] [id number] scan, neck (Primary Dx); Neck pain Social History Tobacco Use Types Packs/Day Years [...] CDT Inhaled Oxygen Concentration - - Weight 74 kg (163 lb 3.2 oz) 08/26/2021 8:15 AM CDT Height - - Body Mass Index - - documented in this encounter Patient Instructions * Patient Instructions* Andre Soto APRN-CNP - 08/26/2021 9:19 AM CDT Post concussion headaches Please monitor headaches Please continue Gabapentin 300 mg (1) bed time, may reduce to 100 mg (1) bed time Please see Orthopedics documented in this encounter Progress Notes * Andre Soto APRN-CNP - 08/26/2021 9:01 AM CDT Images from the original note were not included. Neurology - Headache New patient Clinic Note Date of Encounter: 08/26/2021 Karon Gaviria Age: [age] year old Date of : 1960 Referring Physician: Tae Mcfarland MD [address] [place] [address] Reason for Office Visit: Pain head / Accompanied with none History of Present Illness I had the pleasure of seeing Karon Gaviria in my Neurology office today. Karon Gaviria is a 61 yearold female with history of fall in may 2021 and headaches. She is currently medically managed by Gabapentin 300 mg (1) TID (given for foot pain) Reports the fall was placing the leg from an uneven side walk when she was taking her dog for a walk Got checked with ER, CT head WNL CT Neck had changes. Reports the headaches eased from daily , pressure headaches to one or two in a given week and tolerable The patient denies any double vision, blurry vision, shortness of breath, dysphagia, weakness, numbness, tingling, incontinence of bowel or bladder, loss of consciousness, involuntary movements, tremor, shaking, seizure-like activity, changes in gait, falls, problems with memory or clumsiness. ROS: General Negative except per HPI Eyes Negative except per HPI ENT Negative except per HPI Pulmonary Negative except per HPI Cardiac Negative except per HPI GI Negative except per HPI Negative except per HPI Neurologic Per HPI Psychiatric Negative except per HPI Skeletal Negative except per HPI Endocrine Negative except per HPI Infectious Negative except per HPI Allergies: Allergies Allergen Reactions ??? Codeine Palpitations Reaction: hives, , Home Medications: Current Outpatient Medications Medication Sig ??? ALPRAZolam (XANAX) 0.5 MG tablet Take 0.5 mg by mouth 3 times daily as needed ??? amitriptyline (ELAVIL) 25 MG tablet Take 25 mg by mouth at bedtime ??? cephalexin (KEFLEX) 500 MG capsule Take 500 mg by mouth every 12 hours ??? dicyclomine (BENTYL) 20 MG tablet Take 20 mg by mouth once daily ??? gabapentin (NEURONTIN) 300 MG capsule Take 300 mg by mouth 3 times daily ??? hydroCHLOROthiazide (HYDRODIURIL) 25 MG tablet Take 25 mg by mouth once daily ??? HYDROcodone-acetaminophen (NORCO) 10-325 MG tablet TAKE 1/2 TO 1 TABLET BY MOUTH EVERY 4 HOURS NEEDED FOR PAIN ??? levothyroxine (SYNTHROID) 100 MCG tablet Take 100 mcg by mouth once daily ??? losartan (COZAAR) 50 MG tablet Take 50 mg by mouth once daily ??? meloxicam (MOBIC) 7.5 MG tablet Take 7.5 mg by mouth 2 times daily ??? multivitamin daily tablet Take 1 tablet by mouth daily with food ??? ondansetron (ZOFRAN) 4 MG tablet Take 4 mg by mouth ??? QUEtiapine (SEROQUEL) 50 MG tablet Take 50 mg by mouth once daily ??? sertraline (ZOLOFT) 50 MG tablet Take 50 mg by mouth ??? tamsulosin (FLOMAX) 0.4 MG capsule Take 0.4 mg by mouth once daily ??? topiramate (TOPAMAX) 50 MG tablet Take 50 mg by mouth 2 times daily ??? vitamin D3 (CHOLECALCIFEROL) 25 MCG (1000 UNITS) tablet Take 1,000 Units by mouth once daily No current facility-administered medications for this visit. There is no problem list on file for this patient. PMH: No past medical history on file. Family History: No family history on file. Social History: Social History Socioeconomic History ??? Marital status: Spouse name: Not on file ??? Number of children: Not on file ??? Years of education: Not on file ??? Highest education level: Not on file Occupational History ??? Not on file Tobacco Use ??? Smoking status: Never Smoker ??? Smokeless tobacco: Never Used Vaping Use ??? Vaping Use: Never used Substance and Sexual Activity ??? Alcohol use: Never ??? Drug use: Not on file ??? Sexual activity: Not on file Other Topics Concern ??? Not on file Social History Narrative ??? Not on file Social Determinants of Health Financial Resource Strain: Not on file Food Insecurity: Not on file Transportation Needs: Not on file Physical Activity: Not on file Stress: Not on file Social Connections: Not on file Intimate Partner Violence: Not on file Housing Stability: Not on file Physical Exam: Vitals: 08/26/21 0815 BP: 122/82 Pulse: 80 Temp: 97.8 ??F (36.6 ??C) SpO2: 98% Weight: 163 lb 3.2 oz (74 kg) - Current pain level 2 /10 General: The patient's weight has not changed recently and appetite has been fair. HEENT: Head normocephalic and atraumatic Head/Neck - Cervical spine examination - good range of motion - Myofascial palpation - no tenderness in trapezius, splenius capitis, temporalis - Temporomandibular joint examination - within normal limits TA: No tenderness Optic Fundi: Clear disc Margin Heart: Regular rate and rhythm without murmur Lungs: Clear to auscultation bilaterally Abdomen: Non-tender, non-distended Extremities: No cyanosis or edema noted Cortical Function: MS: Awake, Alert, Follows Commands Oriented to Person, Place and Time Language: Fluent, Coherent, Repetition Intact VF: Intact to confrontation test Neglect: No visual neglect, No tactile neglect Cranial Nerves: Pupils 3 mm BRTL, Full EOM, No ptosis or nystagmus Facial sensation intact bilaterally to LT; No facial palsy Hearing intact to finger rub bilaterally Palate symmetric; Normal tongue protrusion Motor: Abnormal Movements: None Bulk: Normal Tone: Normal Strength: Appropriate for Age RUE 5/5 LUE 5/5 RLE 5/5 LLE 5/5 DTR: Bi Tri BR Pat Ach Planter R 2 2 2 2 2 Down L 2 2 2 2 2 Down No tenderness to palpation in neck, back No Lhermitte sign Examination of Sensation: Touch: wnl Pin:wnl Vibration: wnl Joint & Position:wnl Cerebellar Coordination : Finger/Nose: intact Gait: Normal stride and stance Normal tandem Lab Review: Notes from outside provider All labs reviewed Impression: Abnormal CT Cervical Spine- multiple lucencies Post concussion headaches Recommendations: -To continue Gabapentin 300 mg (1) HS and may decrease to 100 mg HS -To see Orthopedics for abnormal CT Cervical Spine; asked her to bring images burnt in CD for [place] visit to review to r/o any bone infection or tumor -Maintain headache diary -Lifestyle modification with regular exercise, regular meals, sleep hygiene, hydration Continue taking your current medications. No changes made today. Call if any questions arise. -Follow up in 4-6 months or if symptoms worsen or fail to improve. All pertinent questions were answered to patient's satisfaction during this clinical visit. Patient is to closely follow up with the primary physician for medical needs. Signed Electronically RE[facility]NALDO [facility] Department of Neurology 08/26/21 documented in this encounter Plan of Treatment Not on file documented as of this encounter Visit Diagnoses Diagnosis Abnormal CT scan, neck- Primary Other nonspecific (abnormal) findings on radiological and other examinations of body structure Neck pain Cervicalgia documented in this encounter Care Teams Suit Maker Relationship Specialty Start Date End Date Tae Mcfarland MD [address] [place] [address] PCP - General 06/30/21 documented as of this encounter
--- OUTSIDE RECORDS SUMMARY | 2024-06-10 07:01 | XMS_ITS | Encounter Summary ---
Author Organization [facility] Address [address] [place] [address] Care Team Providers Care Dope Edger Name Role Phone Tae Mcfarland MD Primary Care Provider + [phone] Reason for Referral * Radiology Services (Routine) - Closed Specialty Diagnoses / Procedures Referred By Contac valerio Referred To Contact MRI Diagnoses Cervical pain (neck) Procedures MRI CERVICAL SPINE WWO CONT Garret Munson MD [facility] [place] [address] Referral ID Status Reason Start Date Expiration Date Visits Re quested Visits Authorized [id number] Closed 10/20/2021 12/04/2021 1 1 Reason for Visit * Reason Comments Pain Neck Encounter Details Date Type Department Care Team (Late st Contact Info) Description 10/20/2021 10:15 AM CDT Office Visit [facility] - Orthopedics [address] [place] [address], [place] [id number] Garret Munson MD [address] [place] [address] [place] [address] Cervical pain (neck) (Primary Dx) Social History Tobacco Use Types Packs/Day Years Used Date Smoking Tobacco: Never Smokeless Tobacco: Never Alcohol Use Standard Drinks/Week Comments Never 0 (1 standard drink = 0.6 oz pur e alcohol) Sex and Gender Information Value Date Recorded Sex Assigned at Not on file Gender Identity Not on file Sexual Orientation Not on file documented as of this encounter Patient Instructions * Patient Instructions* Tae Parnell MD - 10/20/2021 8:11 AM CDT [facility] Department of Orthopaedic Surgery Orthopaedic Spine Clinic Discharge Form Karon Gaviria 10/20/2021 Thank you for coming in to see us today for your diagnosis of: S/p fall May 2021; headaches and abnormal CT Recommended Treatment: MRI C spine Follow up after MRI Ms. Gaviria had a clinic appointment on 10/20/2021. Please call Cathie Washburn at [phone] with any questions or concerns. documented in this encounter Progress Notes * Tae Parnell MD - 10/20/2021 11:10 AM CDT [facility] Orthopedic Spine Surgery Clinic Note Karon Gaviria, 61 year old, female : 1960 CSN: [id number] Primary Care Physician: Tae Mcfarland MD Diagnosis/Procedures 1.) C2 lucency on CT done by neurology HPI Date of this clinic visit: 10/20/2021 This is a 61 year old female with history of fall several months ago in which she hit her head and possibly had LOC. She was hospitalized at that time and has had headaches since. She sees a neurologist for these. She had CTs of her head and C spine done and was incidentally found to have lucencies in C2 . She is here today for evaluation of those CT findings. Her PMH includes Crohn's and thyroid CA s/p thryoidectomy. She reports mild pain in her head/neck. She reports intermittent numbness inher bilateral hands but denies weakness. Denies bowel/bladder retention or incontinence. ROS otherwise negative. Smoking status: Former Pertinent Background Information: Prior orthopedic injuries/surgeries: Yes wrist fracture x2 Diabetic: no Objective There were no vitals taken for this visit. PMHx No past medical history on file. [...] No current facility-administered medications for this visit. Review of Systems - Bowel/Bladder incontinence or retention: Denies - Numbness/paresthesias to extremities: reports - Hand clumsiness/loss of fine motor skills: Denies - Balance problems: Denies Review of all other systems was negative. Physical Exam General appearance: awake, cooperative, NAD [...] - Caro's sign is negative - Reflexes: Biceps: Normal Triceps: Normal BR: Normal Bilateral Lower Extremity: - Motor: Hip Flexion (L2/3) 5/5 Knee Flexion 5/5 Knee Extension (L4) 5/5 Ankle Dorsiflexion (L5) 5/5 Great Toe Extension (L5) 5/5 Ankle Plantarflexion (S1) 5/5 - Sensation: Intact to light touch distally - Straight Leg Raise: negative bilaterally - Clonus: absent - Reflexes: Knee Jerk: Normal Achilles: Normal Gait - Walks with reciprocal heel/toe gait. Able to demonstrate heel walk, toe walk, and tandem gait without difficulty. Imaging - CT C spine from OSH reviewed. Demonstrate multiple lucent lesions in C2 that are well circumscribed. Assessment/Plan: Karon Gaviria is a 61 year old female with multiple C2 lytic lesions found incidentally on CT. Doing well with only mild numbness in hands. - Patient was counseled to the nature of their diagnosis and demonstrated understanding - Lifting/Activity restrictions: none - MRI cervical spine - Follow up in clinic after completion of MRI Tae Parnell MD 10/20/2021 Associated attestation - Garret Munson MD - 10/20/2021 12:32 PM CDT I personally saw, evaluated, examined and [...] bolaños elements of the plan of care. Please do not hesitate to contact me with questions regarding him or any other patient in the future. Our clinical specialist, Cathie Washburn, can be reached at [phone]. Sincerely, Garret Munson MD documented in this encounter Plan of Treatment Not on file documented as of this encounter Results * MRI CERVICAL SPINE WWO CONT [...] PM . Garret Munson MD MR ORDERABLES documented in this encounter Visit Diagnoses Diagnosis Cervical pain (neck)- Primary Cervicalgia Cervical pain (neck) Cervicalgia documented in this encounter Care Teams Dope Edger Relationship Specialty Start Date End Date Tae Mcfarland MD [address] [place] [id number] PCP - General 06/30/21 documented as of this encounter
--- OUTSIDE RECORDS SUMMARY | 2024-06-10 07:01 | XMS_ITS | Continuity of Care Document ---
Author Organization [facility] Address [address] [place] [address] [address] [place] [address] Phone Care Team Providers Care Railway Yard Assistant Name Role Phone Dominick Diego Unavailable Unavailable Procedures Procedure Date Therapeutic Activities Neuromuscular Re-Ed Hot or Cold Pack Doc neg elder mal no plan Identified as unhealthy alcohol user Mar Identified as unhealthy alcohol user rcv d counseling Unhealthy alcohol via screening rcvd cou nseling OT Evaluation Low Complexity Therapeutic Activities Neuromuscular Re-Ed Orthotic Mgmt and Training HFO w/o joints CF Therapeutic Exercise Therapeutic Activities Neuromuscular Re-Ed Manual Therapy Progress Note Therapeutic Exercise Therapeutic Activities Neuromuscular Re-Ed Manual Therapy Hot or Cold Pack Therapeutic Exercise Therapeutic Activities Neuromuscular Re-Ed Manual Therapy Therapeutic Exercise Therapeutic Activities Neuromuscular Re-Ed Manual Therapy Therapeutic Exercise Therapeutic Activities Neuromuscular Re-Ed Manual Therapy Therapeutic Exercise Therapeutic Activities Manual Therapy Hot or Cold Pack Therapeutic Exercise Therapeutic Activities Neuromuscular Re-Ed Manual Therapy Therapeutic Exercise Therapeutic Activities Neuromuscular Re-Ed Manual Therapy Progress Note Therapeutic Exercise Therapeutic Activities Manual Therapy Hot or Cold Pack OT Evaluation Low Complexity Therapeutic Exercise Manual Therapy Hot or Cold Pack Advance Directives Directive Yes / No Effective Date File Name No Information Encounters Encounter Description Practice Location Reason(s) For Visit Diagnoses Date Provider Providers Copied on Encounter [facility] [address], [id number], tel:[phone] [place] No Information 3 0- 4 Jimenez Dominick. . [email or web address], [place], [id number], tel:[phone] [place] No Information 0 - 4 Jimenez Dominick. . Referring Provider: Farheen Lopes, [address] [facility] [address], [place], [address]. tel:[phone] [facility] [address] [employer] [place], [place], [id number], tel:[phone] [place] No Information 0 4- 4 Jimenez Dominick. . Referring Provider: Farheen Lopes, [address], [place], [address]. tel:[phone] [facility] [address] [facility] [facility], [place], [place], [id number], tel:[phone] [place] Nondisp fx of dist pole of navic bone of l wrs, 7thDStiffness of left wrist, not elsewhere classifiedPai n in left wristOth symptoms and signs involving the musculoskelet al systemStiffne ss of left hand, not elsewhere classified Dec-2 0-201 8 Milton Lawrence. [address] [facility], [address], [place], [address], [place]. tel:[phone] Referring Provider: Sebastián Bertrand, [address], [place], [address]. tel:[phone] [place] [address] [address], [place], [place], [id number], [place] tel:[phone] [place] Nondisp fx of dist pole of navic bone of l wrs, 7thDStiffness of left wrist, not elsewhere classifiedPai n in left wristOth symptoms and signs involving the musculoskelet al systemStiffne ss of left hand, not elsewhere classified Dec-1 8-201 8 Milton Lawrence. [address] [place] [address], [address], [place], [address], [place]. tel:[phone] Referring Provider: Sebastián Bertrand, [address], [place], [address]. tel:[phone] [place] [place] [address] [address], [place], [place], [id number], [place] tel:[phone] [place] Nondisp fx of dist pole of navic bone of l wrs, 7thDStiffness of left wrist, not elsewhere classifiedPai n in left wristOth symptoms and signs involving the musculoskelet al systemStiffne ss of left hand, not elsewhere classified Dec- 4201 8 Milton Lawrence. [address] [facility], [address], [place], [address], [place]. tel:[phone] Referring Provider: Sebastián Bertrand, [address], [place], [address]. tel:[phone] [facility] [address], [place], [place], [id number], [place] tel:[phone] [place] Nondisp fx of dist pole of navic bone of l wrs, 7thDStiffness of left wrist, not elsewhere classifiedPai n in left wristOth symptoms and signs involving the musculoskelet al systemStiffne ss of left hand, not elsewhere classified Dec- 8 Milton Lawrence. [address] [facility], [address], [place], [address], [place]. tel:[phone] Referring Provider: Sebastián Bertrand [address], [place], [address]. tel:[phone] [place] [address] [facility] [address], [place], [place], [id number], [place] tel:[phone] [place] Nondisp fx of dist pole of navic bone of l wrs, 7thDStiffness of left wrist, not elsewhere classifiedPai n in left wristOth symptoms and signs involving the musculoskelet al systemStiffne ss of left hand, not elsewhere classified May- 8 Milton Lawrence. [address] [facility], [address], [place], [address], [place]. tel:[phone] Referring Provider: John Weber[address], [place], [address]. tel:[phone] [place] [address] [facility] [address], [place], [place], [address], [place] tel:[phone] [place] Nondisp fx of dist pole of navic bone of l wrs, 7thDStiffness of left wrist, not elsewhere classifiedPai n in left wristOth symptoms and signs involving the musculoskelet al systemStiffne ss of left hand, not elsewhere classified Dec-0 8 Tanya Gould . Referring Provider: John Weber[address] 6[address]A, [place], [address]. tel:[phone] [facility], [address], [place], [place], [id number], [place] tel:[phone] [place] Nondisp fx of dist pole of navic bone of l wrs, 7thDStiffness of left wrist, not elsewhere classifiedPai n in left wristOth symptoms and signs involving the musculoskelet al systemStiffne ss of left hand, not elsewhere classified Dec-0 6-201 8 Rosegurjit Osegueraa. [address] [facility], [address], [place], [address], [place]. tel:[phone] Referring Provider: John Weber[address], [place], [address]. tel:[phone] [place] [address] [facility] [address], [place], [place], [id number], [place] tel:[phone] [place] Nondisp fx of dist pole of navic bone of l wrs, 7thDStiffness of left wrist, not elsewhere classifiedPai n in left wristOth symptoms and signs involving the musculoskelet al systemStiffne ss of left hand, not elsewhere classified Dec-0 4 8 Milton Lawrence. [address] [facility], [address], [place], [address], [place]. tel:[phone] Referring Provider: John Weber[address], [place], [address]. tel:[phone] [place] [address] [facility] [address], [place], [place], [id number], [place] tel:[phone] [place] Nondisp fx of dist pole of navic bone of l wrs, 7thDStiffness of left wrist, not elsewhere classifiedPai n in left wristOth symptoms and signs involving the musculoskelet al systemStiffne ss of left hand, not elsewhere classified Apr-2 8 Bettye Joy. . Referring Provider: John Weber[address], [place], [address]. tel:[phone] [facility], [address], [place], [place], [address], [place] tel:[phone] [place] Nondisp fx of dist pole of navic bone of l wrs, 7thDStiffness of left wrist, not elsewhere classifiedPai n in left wristOth symptoms and signs involving the musculoskelet al systemStiffne ss of left hand, not elsewhere classified 8 Milton Lawrence. [address] [employer], [address], [place], [address], [place]. tel:[phone] Referring Provider: Sebastián Bertrand, [address] [place] [address] 6A/6B/12A, [place], [address]. tel:[phone] Family History Family Member Type Diagnosis Age At Onset No Information Payers Payer name Insurance type Covered alliance party ID Authoriza tion(s) [employer] CI [id number] Social History Type Description Quantity Date Captured Comments Sex Female Smoking Status No Information Chief Complaint And Reason For Visit No Information Reason For Referral Reason For Referral No Information History Of Present Illness Encounter Date Complaint History Of Prese nt Illness No Information Functional Status Date Functional Assessmen t No Information Instructions Date Instruction Additional Infor mation No Information Assessments Type Assessment Date No Information Patient Care Teams Name Effective Dates (start - stop) Status Members No Information
--- OUTSIDE RECORDS SUMMARY | 2024-06-10 07:01 | XMS_ITS | Encounter Summary ---
Author Organization [facility] Address [address] [facility] [place] [address] Care Team Providers Care [employer] Name Role Phone Tae Mcfarland MD Primary Care Provider [phone] Encounter Details Date Type Department Care Team (Latest Contact Info) Description 10/29/2021 Travel Social History Tobacco Use Types Packs/Day Years Used Date Smoking Tobacco: Never Smokeless Tobacco: Never Alcohol Use Standard Drinks/Week Comments Never 0 (1 standard drink = 0.6 oz pur e alcohol) Sex and Gender Information Value Date Recorded Sex Assigned at Not on file Gender Identity Not on file Sexual Orientation Not on file documented as of this encounter Plan of Treatment Not on file documented as of this encounter Visit Diagnoses Not on filedocumented in this encounter Care Teams [employer] Relationship Specialty Start Date End Date Tae Mcfarland MD [address] [place] [address] PCP - General 06/30/21 documented as of this encounter
--- OUTSIDE RECORDS SUMMARY | 2024-06-10 07:01 | XMS_ITS | Encounter Summary ---
Author Organization [facility] Address [address] [place] [address] Care Team Providers Care Tape Folding Machine Operator Name Role Phone Unavailable Primary Care Provider Unavailabl e Reason for Referral * Outpatient Services (Routine) - Closed Specialty Diagnoses / Procedures Referred By Phong luo Referred To Contact Diagnoses Palpitations HTN (hypertension) LVH (left ventricular hypertrophy) Procedures CARDIAC EVENT MONITOR Alvaro Noriega MD [address] [facility] [address] [place] [address] Referral ID Status Reason Start Date Expiration Date V isits Requested Visits Authorized [id number] Closed STL CTS 10/29/2013 11/29/2014 1 1 * Outpatient Services (Routine) - Closed Specialty Diagnoses / Procedures Referred By Contboni t Referred To Contact Diagnoses Palpitations HTN (hypertension) LVH (left ventricular hypertrophy) Procedures ECHO COMPLETE Alvaro Noriega MD [address] [facility] [address] [place] [address] Referral ID Status Reason Start Date Expiration Date V isits Requested Visits Authorized [id number] Closed STL CTS 10/29/2013 11/27/2013 1 1 Reason for Visit * Reason Comments Establish Care Encounter Details Date Type Department Care Team (Latest Contact Info) Description 10/29/2013 2:15 PM CDT Office Visit [facility]3] Heart and Vascular - [facility] [address] [address] [facility] [address] [place] [address] Alvaro Noriega MD [address] [facility] [address] [place] [address] Palpitations (Primary Dx); HTN (hypertension); LVH (left ventricular hypertrophy); Family history of early CAD; History of tobacco abuse; Mitral regurgitation Social History Tobacco Use Types Packs/Day Years [...] Sign Reading Time Taken Comments Blood Pressure 108/68 10/29/2013 2:17 PM CDT Pulse 70 10/29/2013 2:17 PM CDT Temperature - - Respiratory Rate - - Oxygen Saturation 98% 10/29/2013 2:17 PM CDT Inhaled Oxygen Concentration - - Weight 77.6 kg (171 lb) 10/29/2013 2:17 PM CDT Height 154.9 cm (5' 1 ) 10/29/2013 2:17 PM CDT Body Mass Index 32.31 10/29/2013 2:17 PM CDT documented in this encounter Progress Notes * Alvaro Noriega MD - 10/29/2013 3:05 PM CDT HISTORY OF PRESENT ILLNESS TETO Gaviria, a 53 y.o. female presents today as a new patient consultation referred by Dr. Redmond for further evaluation of palpitations and hypertension. The patient has a family history of CAD in both parents as well as hypertension and all family members. She has remained stable on multiple medications for hypertension. She has a history of cardiac catheterization in 2006 that was normal, echocardiogram in 2006 that revealed LVH with mild much regurgitation and normal LV systolic function. She exercises regularly and has lost 80 pounds over the last year. She has a previous history of smoking. She denies diabetes. She notes palpitations at rest and sometimes feels like she cannot catch her breath. It occurs 2-3 times a week. She's never had syncope. She has no other concerns. HPI Current Outpatient Prescriptions Medication Sig Dispense Refill ??? lisinopril (PRINIVIL) 40 mg tablet Take 40 mg by mouth daily. ??? metFORMIN (GLUCOPHAGE) 500 mg tablet Take 500 mg by mouth 2 times daily with meals. ??? metoprolol tartrate (LOPRESSOR) 100 mg tablet Take 100 mg by mouth daily. ??? amLODIPine (NORVASC) 5 mg tablet Take 5 mg by mouth daily. ??? topiramate (TOPAMAX) 50 mg tablet Take 50 mg by mouth 2 times daily. ??? venlafaxine (EFFEXOR) 37.5 mg tablet Take 37.5 mg by mouth daily. ??? hydrochlorothiazide 25 mg Oral tablet Take 25 mg by mouth daily. ??? amitriptyline (ELAVIL) 25 mg tablet Take 25 mg by mouth daily at bedtime. ??? atorvastatin (LIPITOR) 20 mg tablet Take 20 mg by mouth Daily LATE. ??? zolpidem (AMBIEN) 10 mg tablet Take 10 mg by mouth nightly as needed. ??? QUEtiapine (SEROQUEL) 50 mg tablet Take 50 mg by mouth daily. No current facility-administered medications for this visit. REVIEW OF SYSTEMS Review of Systems Constitutional: Negative. HENT: Negative. Eyes: Negative. Respiratory: Negative. Cardiovascular: Positive for palpitations. Gastrointestinal: Negative. Musculoskeletal: Negative. Skin: Negative. Neurological: Negative. Psychiatric/Behavioral: Negative. All other systems reviewed and are negative. Past Medical History: No Diabetes Yes Hypertension Yes Hyperlipidemia Social History: Previous tobacco use Occ ETOH No illicit drug abuse Lives with Regular exercise Occ Caffeine Family History: CAD and HTN in both parents PHYSICAL EXAM BP 108/68 Pulse 70 Ht 5' 1 (1.549 m) Wt 171 lb (77.565 kg) BMI 32.33 kg/m2 SpO2 98% Physical Exam Nursing note and vitals reviewed. Constitutional: She is oriented to person, place, and time. Vital signs are normal. She appears well-developed and well-nourished. No distress. HENT: Head: Normocephalic and atraumatic. Mouth/Throat: Oropharynx is clear and moist. Neck: Normal range of motion. Neck supple. No JVD present. No thyromegaly present. Cardiovascular: Normal rate, regular rhythm, S1 normal, S2 normal, normal heart sounds, intact distal pulses and normal pulses. PMI is not displaced. Exam reveals no gallop and no friction rub. No murmur heard. Pulmonary/Chest: Effort normal and breath sounds normal. No stridor. No respiratory distress. She has no wheezes. She has no rales. She exhibits no tenderness. Abdominal: Soft. She exhibits no distension. There is no tenderness. Musculoskeletal: Normal range of motion. She exhibits no edema and no tenderness. Lymphadenopathy: She has no cervical adenopathy. Neurological: She is alert and oriented to person, place, and time. Skin: Skin is warm. No rash noted. No erythema. Psychiatric: She has a normal mood and affect. Her behavior is normal. Outside hospital cardiac testing: Cardiac catheter 2005-normal EF, normal coronaries Echo November 2005-LVH, mild MR, normal LV systolic function OSH Labs LDL 84 HDL 95 ECG Today Normal sinus rhythm, poor R-wave progression, nonspecific T changes, heart rate 70 bpm Impression: 1. Palpitations 2. Hypertension-controlled 3. Family history of CAD and hypertension 4. Hyperlipidemia 5. Previous history of smoking 6. Obesity-lost 80 pounds thus far 7. Left ventricular hypertrophy 8. Mild mitral regurgitation Plan: 1. Check echocardiogram 2. Cardiac event monitor 3. No further changes at this point 4. Consider stopping metoprolol and starting Bystolic 10 mg once daily while discontinuing Norvasc altogether at next office visit 5. Follow up with me in 6 weeks, sooner if needed Thank you very much for allowing me to participate in the care of this very pleasant patient. Please do not hesitate to call me anytime with further questions. Luis Noriega MD FAC Operations Research Manager, Cardiology [facility] and Vascular [place] * Zamzam Gibbons - 10/29/2013 2:29 PM CDT Here to establish care. Episode of heart racing. documented in this encounter Procedure Notes * Alvaro Noriega MD - 10/29/2013 3:04 PM CDTAssociated Order(s): EKG 12-LEAD Procedure(s): SC ECG ROUTINE ECG W/LEAST 12 LDS W/I&R Pre-Procedure Diagnose(s): Palpitations; HTN (hypertension); LVH (left ventricular hypertrophy) Normal sinus rhythm, poor R-wave progression, nonspecific T changes, heart rate 70 bpm documented in this encounter Plan of Treatment Not on file documented as of this encounter Procedures Procedure Name Priority Date/Time Associated Diagnosis Comments SC ECG ROUTINE ECG W/LEAST 12 LDS W/I&R Routine 10/29/2013 3:11 PM CDT Palpitations HTN (hypertension) LVH (left ventricular hypertrophy) documented in this encounter Results * CARDIAC EVENT MONITOR (12/03/2013 8:17 AM CDT) Narrative Transcriptions Alvaro Noriega MD - 12/02/2013 6:22 PM CDT [place], [place] [address] Numerical Control Drill Press Operator Report CSN: [id number] DATE OF SERVICE: PROCEDURE PERFORMED waiter/waitress take out, October 29 through November 27. INDICATION Tachycardia. DESCRIPTION A baseline transmission revealed normal sinus rhythm. The heart rate 62beats per minute. On November 09, patient described rapid heartbeat whichalso correlated with normal sinus rhythm, heart rate 65 beats per minute.There were no other transmissions received. JPC:MEDQ DID:[id number] Dictated by: Luis Noriega M.D. Alvaro Noriega MD CARDIAC SERVICES ORDERABLES [facility] * ECHO COMPLETE (11/13/2013 11:35 AM CDT) EJECTION FRACTION 59 INTERFACE SYSTEM 11/13/2013 10:3 0 AM CDT Narrative INTERFACE SYSTEM - 11/14/2013 10:56 AM CDT [place] [address] [facility] [place] [address] [email or web address] Machine Transthoracic Echocardiography Patient: ? Teto Gaviria: ? [id number] Study ID: ?[id number] Gender: ?F : ? 1960 Age: ? 53 Race: ?CAU Height ? 154.9cm Study Date: ?11/13/2013 Weight: ?77.1kg Access. #: ? [id number] Account #: ? [id number] BP: ?100 / 65 *Referring Physician:* Luis Noriega *Ordering Physician:* ??Luis Noriega Medical Billing Assistant: ? VM Indications: Mitral regurgitation. ??Chronic hypertension. [...] Prepared and Electronically Authenticated Irvin Landry M.D. [id number] Procedure Note Irvin Landry MD - 11/14/[address] [place] [address] [email or web address] Transthoracic Echocardiography Patient: Teto Gaviria Study ID: [id number] Gender: F : 1960 Age: 53 Race: EL Height 154.9cm Study Date: 11/13/2013 Weight: 77.1kg Access. #: [id number] BP: 100 / 65 *Referring Physician:* Luis Noriega *Ordering Physician:* Luis Noriega Medical Billing Assistant: LIANET Indications: Mitral regurgitation. Chronic hypertension. Palpitations. [...] November 13, 2013. Prepared and Electronically Authenticated Gris Anand Irvin Moy [id number] Alvaro Noriega MD US ORDERABLES INTERFACE SYSTEM Refer to clinic/hospital department * SC ECG ROUTINE ECG W/LEAST 12 LDS W/I&R (10/29/2013 3:11 PM CDT) Narrative [facility] - 10/29/2013 3:11 PM CDT Alvaro Noriega MD ? 10/29/2013 ??3:11 PM Normal sinus rhythm, poor R-wave progression, nonspecific T changes, heart rate 70 bpm Procedure Note Alvaro Noriega MD - 10/29/2013 3:04 PM CDT Normal sinus rhythm, poor R-wave progression, nonspecific T changes, heartrate 70 bpm Alvaro Noriega MD ECG ORDERABLES Performing Organization Address City/[facility] Co de Phone Number [facility] documented in this encounter Visit Diagnoses Diagnosis Palpitations- Primary HTN (hypertension) Unspecified essential hypertension LVH (left ventricular hypertrophy) Cardiomegaly Family history of early CAD Family history of ischemic heart disease History of tobacco abuse Personal history of tobacco use, presenting hazards to health Mitral regurgitation Mitral valve disorders Palpitations HTN (hypertension) Unspecified essential hypertension LVH (left ventricular hypertrophy) Cardiomegaly Palpitations HTN (hypertension) Unspecified essential hypertension LVH (left ventricular hypertrophy) Cardiomegaly documented in this encounter
--- OUTSIDE RECORDS SUMMARY | 2024-06-10 07:01 | XMS_ITS | Encounter Summary ---
Author Organization [facility] Address [address] [place] [address] Care Team Providers Care Bus And Trolley Dispatcher Name Role Phone Tae Mcfarland MD Primary Care Provider [phone] Reason for Visit * Reason Onset Date Comments Appointment 12/06/2021 Encounter Details Date Type Department Care Team (Late st Contact Info) Description 12/06/2021 Telephone [facility] - Orthopedics [address] [place] [address] Felicita Martel Appointment Social History Tobacco Use Types Packs/Day Years [...] encounter Miscellaneous Notes * Telephone Encounter - Felicita Martel - 12/06/2021 3:17 PM CDT Left a voicemail and sent a google text to the patient at [phone] to please call back about their November appointment. Patient Called back and was agreeable with the new appointment date of Tuesday November 16, 2021 at 9:15.I was very clear that the new appointment was with KIMBERLYN Ventura for Dr. William Hernandez. documented in this encounter Plan of Treatment Not on file documented as of this encounter Visit Diagnoses Not on filedocumented in this encounter Care Teams Bus And Trolley Dispatcher Relationship Specialty Start Date End Date Tae Mcfarland MD [address] [address] PCP - General 06/30/21 documented as of this encounter
--- OUTSIDE RECORDS SUMMARY | 2024-06-10 07:01 | XMS_ITS | Encounter Summary ---
Author Organization [facility] Address [address] [place] [address] Care Team Providers Care Biomass Plant Manager Name Role Phone Tae Mcfarland MD Primary Care Provider [phone] Reason for Visit * Radiology Services (Routine) - Closed Specialty Diagnoses / Procedures Referred By Contac t Referred To Contact MRI Diagnoses Cervical pain (neck) Procedures MRI CERVICAL SPINE WWO CONT Garret Munson MD [address] [place] [address] [place] [address] Referral ID Status Reason Start Date Expiration Date Visits Re quested Visits Authorized [id number] Closed 10/20/2021 12/04/2021 1 1 Encounter Details Date Type Department Care Team (Late st Contact Info) Description 10/29/2021 1:30 PM CDT - 10/29/2021 11:59 PM CDT Hospital Encounter [facility] MRI [address] [place] [id number] Garret Munson MD [address] [place] [address] OF ORTHOPEDIC SURGERY [place], [place] [id number] Discharge Disposition: Home or Self Care Social [...] Procedure Name Priority Date/Time Associated Diagnosis Comments MRI CERVICAL SPINE WWO CONT Routine 10/29/2021 3:07 PM CDT Cervical pain (neck) CREATININE - POCT INTERFACED Routine 10/29/2021 1:59 PM CDT documented in this encounter Results * MRI CERVICAL SPINE [...] - 1.30 mg/dL 10/29/2021 5:32 PM CDT [facility] eGFR >90 >90 mL/min/1.7 3 m2 10/29/2021 5:32 PM CDT [facility] Blood BLOOD SPECIMEN / Unknown 10/29/2021 1:59 PM CDT 10/29/2021 5:32 PM CDT Garret Munson MD LAB - POINT OF CARE ORDERABLES Performing Organization Address City/State/[facility] Co de Phone Number [address] [phone], [facility] [phone] documented in this encounter Visit Diagnoses Diagnosis Cervical pain (neck) Cervicalgia documented in this encounter Administered Medications Inactive Administered Medications - up to 3 most recent administrations Medication Order MAR Action Action Date Dose Rate Site gadobutrol (Gadavist) injection Intravenous, CONTRAST ONCE, Starting on 10/29/21 at 1345, Until 10/30/21 at 0121 $ Given - Contrast 10/29/2021 2:11 PM CDT 7 mL documented in this encounter Care Teams Biomass Plant Manager Relationship Specialty Start Date End Date Tae Mcfarland MD [address] [place] [address] PCP - General 06/30/21 documented as of this encounter
--- OUTSIDE RECORDS SUMMARY | 2024-06-10 07:01 | XMS_ITS | Encounter Summary ---
Author Organization [facility] Address [address] [facility] [place] [address] Care Team Providers Care Link Trainer Maintenance Man Name Role Phone Tae Mcfarland MD Primary Care Provider Encounter Details Date Type Department Care Team (Late st Contact Info) Description 09/01/2021 Orders Only [facility] [address] [place] [address], [place] [phone] Garret Munson MD [address] [place] [address] [place] [address] Cervicalgia Social History Tobacco Use Types Packs/Day Years [...] documented as of this encounter Results * XR CERVICAL SPINE 2 OR 3VW (10/20/2021 10:23 AM CDT) Anatomical Region Laterality Modality Spine Radiographic Yumiko ging 10/20/2021 10:2 8 AM CDT Impressions 10/20/2021 12:13 PM CDT 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 Report dictated by Devaughn Zamora DO (student services vice president) I, Dr. VIVI MC have personally [...] C4-5. Report dictated by Devaughn Zamora DO (student services vice president) I, Dr. VIVI MC have personally reviewed and interpreted this examination/study. This report was electronically signed by VIVI MC on 10/20/2021 12:13 PM . Garret Munson MD DIAGNOSTIC IMAGING O RDERABLES documented in this encounter Visit Diagnoses Diagnosis Cervicalgia- Primary Cervicalgia documented in this encounter Care Teams Link Trainer Maintenance Man Relationship Specialty Start Date End Date Tae Mcfarland MD [address] [address] PCP - General 06/30/21 documented as of this encounter
--- OUTSIDE RECORDS SUMMARY | 2024-06-10 07:01 | XMS_ITS | Encounter Summary ---
Author Organization [facility] Address [address] [place] [address] Care Team Providers Care Supervisor Char House Name Role Phone Unavailable Primary Care Provider Unavailabl e Encounter Details Date Type Department Care Team (Late st Contact Info) Description 10/30/2013 Abstract [facility] Heart and Vascular - [facility] [phone] [facility] [address] [place] [address] Alvaro Noriega MD [address] [facility] [address] [place] [address] Social History Tobacco Use Types Packs/Day Years [...] Procedure Name Priority Date/Time Associated Diagnosis Comments LIPID PANEL Routine 10/27/2013 NM MYOCARD PERF IMAG SPECT MULT Routine 06/25/2012 ECHO COMPLETE Routine 06/25/2012 US CAROTID DOPPLER Routine 10/09/2011 NM MYOCARD PERF IMAG SPECT MULT Routine 02/15/2011 ECHO COMPLETE Routine 02/08/2011 CL LT HEART CATHETERIZATION Routine 09/13/2006 NM MYOCARD PERF IMAG SPECT MULT Routine 08/27/2006 CL LT HEART CATHETERIZATION Routine 01/10/2006 ECHO COMPLETE Routine 11/30/2005 HOLTER MONITOR Routine 08/14/2005 documented in this encounter Results * LIPID PANEL (10/27/2013) Pathologist [facility] ABSTRACTED CHOLESTEROL [facility] LAB[facility]ATORY SERVICES [facility] ABSTRACTED TRIGLYCERIDE [facility] ABSTRACT[facility] HDL [facility] . [facility] ABSTRACTED LDL CALCULATED [facility] CHOLESTEROL mg/dL [facility] CHOLESTEROL [facility] TRIGLYCERIDE mg/dL [facility] TRIGLYCERIDE [facility] HDL mg/dL [facility] . [facility] HDL [facility] LDL CALCULATED mg/dL [facility] . [facility] LDL CALCULATED [facility] CALCULATED LDL CHOLESTEROL mg/dL [facility] - . [facility] CALCULATED TOTAL CHOLESTEROL TO HDL RATIO [facility] . [facility] CHOL/HDL RATIO [facility] VLDL-3 (REMNANT LIPO) mg/dL [facility] LIPID PANEL COMMENT [facility] RISK FACTOR [facility] RESULT COMMENT, CHEMISTRY [facility] Blood specimen (specimen) 10/27/2013 Sunny Redmond MD CHEMISTRY ORDERABLES Performing Organization Address City/[facility]/ZIP Co de Phone Number [facility] LABORATORY SERVICES - [facility]# [id number] [address] [facility] [place] [address] * NM MYOCARD PERF IMAG SPECT MULT (06/25/2012) EJECTION FRACTION 55 - 85 percent [facility] Courtney Colindres MD NM ORDERABLES [facility] * ECHO COMPLETE (06/25/2012) EJECTION FRACTION 55 - 85 percent [facility] Courtney Colindres MD US ORDERABLES [facility] * US CAROTID DOPPLER (10/09/2011) Anatomical Region Laterality Modality Neck Other Richard Medina MD US ORDERABLES * NM MYOCARD PERF IMAG SPECT MULT (02/15/2011) EJECTION FRACTION 55 - 85 percent [facility] [place] MD NM ORDERABLES [facility] * ECHO COMPLETE (02/08/2011) EJECTION FRACTION 55 - 85 percent [facility] Francois Quarles MD US ORDERABLES [facility] * CL LT HEART CATHETERIZATION (09/13/2006) EJECTION FRACTION 55 - 85 percent [facility] Rojas Donahue MD FLUOROSCOPY ORDERABL ES Performing Organization Address City/[facility]/ZIP Co de Phone Number [facility] * NM MYOCARD PERF IMAG SPECT MULT (08/27/2006) EJECTION FRACTION 55 - 85 percent [facility] Historical Provider NM ORDERABLES Performing Organization Address City/[facility]/ZIP Co de Phone Number [facility] * CL LT HEART CATHETERIZATION (01/10/2006) EJECTION FRACTION 55 - 85 percent [facility] Rojas Donahue MD FLUOROSCOPY ORDERABL ES [facility] * ECHO COMPLETE (11/30/2005) EJECTION FRACTION 55 - 85 percent [facility] Francois Quarles MD US ORDERABLES [facility] * HOLTER MONITOR (08/14/2005) Francois Quarles MD CARDIAC SERVICES ORD ERABLES [facility] documented in this encounter Visit Diagnoses Not on filedocumented in this encounter
--- OUTSIDE RECORDS SUMMARY | 2024-06-10 07:01 | XMS_ITS | Clinical Summary ---
Author Organization [facility] Address [address] [place] [address] Care Team Providers Care Import Customer Service Manager Name Role Phone Sunny Redmond MD Primary Care Provider + [phone] Allergies No known active allergies Medications Medication Sig Dispensed Refills Start Date End Date Status lisinopril (PRINIVIL) 40 mg tabletIndications:Palp itations,HTN (hypertension),LVH (left ventricular hypertrophy) Take 40 mg by mouth daily. Active metFORMIN (GLUCOPHAGE) 500 mg tabletIndications:Palp itations,HTN (hypertension),LVH (left ventricular hypertrophy) Take 500 mg by mouth 2 times daily with meals. Active metoprolol tartrate (LOPRESSOR) 100 mg tabletIndications:Palp itations,HTN (hypertension),LVH (left ventricular hypertrophy) Take 100 mg by mouth daily. Active amLODIPine (NORVASC) 5 mg tabletIndications:Palp itations,HTN (hypertension),LVH (left ventricular hypertrophy) Take 5 mg by mouth daily. Active topiramate (TOPAMAX) 50 mg tabletIndications:Palp itations,HTN (hypertension),LVH (left ventricular hypertrophy) Take 50 mg by mouth 2 times daily. Active venlafaxine (EFFEXOR) 37.5 mg tabletIndications:Palp itations,HTN (hypertension),LVH (left ventricular hypertrophy) Take 37.5 mg by mouth daily. Active hydrochlorothiazide 25 mg Oral tabletIndications:Palp itations,HTN (hypertension),LVH (left ventricular hypertrophy) Take 25 mg by mouth daily. Active amitriptyline (ELAVIL) 25 mg tabletIndications:Palp itations,HTN (hypertension),LVH (left ventricular hypertrophy) Take 25 mg by mouth daily at bedtime. Active atorvastatin (LIPITOR) 20 mg tabletIndications:Palp itations,HTN (hypertension),LVH (left ventricular hypertrophy) Take 20 mg by mouth Daily LATE. Active zolpidem (AMBIEN) 10 mg tabletIndications:Palp itations,HTN (hypertension),LVH (left ventricular hypertrophy) Take 10 mg by mouth nightly as needed. Active QUEtiapine (SEROQUEL) 50 mg tabletIndications:Palp itations,HTN (hypertension),LVH (left ventricular hypertrophy) Take 50 mg by mouth daily. Active Active Problems Patient Care Coordination No te Formatting of this note migh t be different from the original. Lead Developer - Dr Noriega ([facility]) No known active problems Social History Tobacco [...] Mass Index 32.31 10/29/2013 2:17 PM CDT Plan of Treatment Health Maintenance Due Date Last Done Comments DTAP/TDAP/TD VACCINES (1 - Tdap) 1979 CERVICAL CANCER SCREENING 1990 BREAST CANCER SCREENING 2000 COLORECTAL SCREENING 2005 Colorectal Cancer Screening 2005 FIT-DNA Q 3 years 2005 FIT/FOBT Q 1 year 2005 Flex Sig/CT Colonography Q 5 years 2005 ZOSTER VACCINE (1 of 2) 2010 INFLUENZA VACCINE (#1) 2024 RSV VACCINE (60+ or ) (1 - 1-dose 75+ series) 2035 PNEUMOCOCCAL VACCINE 0-64 YEARS Aged Out No longer eligible based on patient's age to complete this topic Care Teams Import Customer Service Manager Relationship Specialty Start Date End Date Sunny Redmond MD PCP - General Family Practice 11/13/13
--- OUTSIDE RECORDS SUMMARY | 2024-06-10 07:02 | XMS_ITS | Encounter Summary ---
Author Organization [facility] Healthcare Address [address] [place] [address] Care Team Providers Care Equine Breeder Name Role Phone Tae Mcfarland MD Primary Care Provide r Reason for Visit * Reason Comments OP Infusion * Episode Based Medications (Routine) - Authorized Specialty Diagnoses / Procedures Referred By Contac t Referred To Contact Diagnoses Crohn's disease of large intestine without complication (CMS/HCC) (HCC) [facility] [address] [place] [phone] Phone: tel: fax: [facility] [address] [place] [phone] Phone: tel: fax: Referral ID Status Reason Start Date Expiration Date V isits Requested Visits Authorized [id number] Authorized 09/25/2023 10/24/2024 99 99 Encounter Details Date Type Department Care Team (Late st Contact Info) Description 02/22/2024 8:30 AM CDT Infusion [facility] [address] [phone] Crohn's disease of large intestine without complication (CMS/HCC) (HCC) (Primary Dx) Social History Tobacco Use Types Packs/Day Years Used Date Smoking Tobacco: Former Smokeless Tobacco: Never Alcohol Use Standard Drinks/Week Comments Yes 1 (1 standard drink = 0.6 oz pur e alcohol) Comments Unknown Sex and Gender Information Value Date Recorded Sex Assigned at Not on file 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:53 AM FRIT MIXER Gender Identity Not on file Sexual Orientation Not on file documented as of this encounter Last Filed Vital Signs Vital Sign Reading Time Taken Comments Blood Pressure 134/84 02/22/2024 8:46 AM CDT Pulse 70 02/22/2024 8:46 AM CDT Temperature 36.5 ??C (97.7 ??F) 02/22/2024 8:46 AM CD T Respiratory Rate 16 02/22/2024 8:46 AM CDT Oxygen Saturation 99% 02/22/2024 8:46 AM CDT Inhaled Oxygen Concentration - - Weight 65.1 kg (143 lb 8 oz) 02/22/2024 8:31 AM CDT Height - - Body Mass Index 26.68 06/15/2023 9:09 AM FRIT MIXER documented in this encounter Progress Notes * Christine Denton [facility] - 02/22/2024 8:30 AM CDT Pharmacy Note - Biotherapy Dose Rounding Infliximab or infliximab biosimilar has been rounded from 650 mg ( 10 mg/kg) to 600 mg per the MTS policy approved by [facility] Pharmacy and Therapeutics committee. [facility] Pharmacy and Therapeutics committee as approved the following: ?? 10% dose rounding policy for biotherapy agents to the nearest vial size Christine Denton RPh 02/22/24 8:37 AM documented in this encounter Nursing Notes * Nelly Brown, LETICIA - 02/22/2024 8:30 AM CDT Pt arrives for remicade. Denies fever, infection, abx use. PIV placed with + blood return. Pre medsgiven with 30 min wait. Infusion titrated per orders. Tolerated well. Next appt made. PIV removed and pt dcd ambulatory. documented in this encounter Plan of Treatment Not on file documented as of this encounter Visit Diagnoses Diagnosis Crohn's disease of large intestine without complication (CMS/HCC) (HCC)- Primary documented in this encounter Administered Medications Inactive Administered Medications - up to 3 most recent administrations Medication Order MAR Action Action Date Dose Rate Site acetaminophen (TYLENOL) tablet 650 mg 650 mg, oral, Once, On Sun02/22/24 at 0915, For 1 dose, Give 30 minutes prior to infusion for infusion reaction prophylaxis.Indications:Crohn's disease of large intestine without complication (CMS/HCC) (HCC) Given 02/22/2024 8:33 AM CDT 650 mg diphenhydrAMINE (BENADRYL) tab/cap 25 mg 25 mg, oral, Once, On Sun02/22/24 at 0915, For 1 dose, Give 30 minutes prior to infusion for infusion reaction prophylaxis.Indications:Crohn's disease of large intestine without complication (CMS/HCC) ([facility]) Given 02/22/2024 8:33 AM CDT 25 mg inFLIXimab (REMICADE) 600 mg in sodium chloride 0.9% 250 mL IVPB 600 mg, intravenous, Once, On Sun02/22/24 at 0945, For 1 dose, MAINTENANCE DOSE: Begin 8 weeks after completion of loading doses For 250 mL: lnititate therapy at 10 mL/hour x 15 minutes then Increase to 20 mL/hour x 15 minutes then Increase to 40 mL/hour x 15 minutes then Increase to 80 mL/hour x 15 minutes then Increase to 150 mL/hour x 30 minutes then Increase to 250 mL/hour x 30 minutes until infusion is complete FOR REACTIONS-STOP INFUSION For 500 mL: Initiate therapy at 20 mL/hour x 15 minutes then Increase to 40 mL/hour x 15 minutes then Increase to 80 mL/hour x 15 minutes the Increase to 160 mL/hour x 15 minutes then Increase to 300 mL/hour x 30 minutes then Increase to 500 mL/hour until infusion is completed FOR REACTIONS-STOP INFUSION. Pharmacy Note - Biotherapy Dose Rounding Infliximab or infliximab biosimilar has been rounded from 650 mg ( 10 mg/kg) to 600 mg per the MTS policy approved by [facility] Pharmacy and Therapeutics committee. [facility] Pharmacy and Therapeutics committee as approved the following: ? 10% dose rounding policy for biotherapy agents to the nearest vial size Christine Denton RP 02/22/24 8:37 AM Use 1.2 micron filter or less, low-sorbing, low protein binding.Indications:Crohn's disease of large intestine without complication (CMS/HCC) (HCC) New Bag 02/22/2024 9:03 AM CDT 600 mg documented in this encounter Orders Nursing Count Last Ordered Date First Orde red Date HEIGHT AND WEIGHT 1 02/22/2024 NURSING COMMUNICATION 1 02/22/2024 VITAL SIGNS INTRA-INFUSION 1 02/22/2024 documented in this encounter Care Teams Equine Breeder Relationship Specialty Start Date End Date Tae Mcfarland MD [address] [place] [address] PCP - General 06/18/20 documented as of this encounter
--- OUTSIDE RECORDS SUMMARY | 2024-06-10 07:02 | XMS_ITS | Encounter Summary ---
Author Organization [facility] Healthcare Address [address] [place] [address] Care Team Providers Care Insurance Counsel Name Role Phone Tae Mcfarland MD Primary Care Provide r Reason for Visit * Reason Comments OP Infusion * Episode Based Medications (Routine) - Authorized Specialty Diagnoses / Procedures Referred By Contac t Referred To Contact Diagnoses Crohn's disease of large intestine without complication (CMS/HCC) (HCC) [facility] [address] [place] [phone] Phone: tel: fax: [facility] [address] [place] [phone] Phone: tel: fax: Referral ID Status Reason Start Date Expiration Date V isits Requested Visits Authorized [id number] Authorized 09/25/2023 10/24/2024 99 99 Encounter Details Date Type Department Care Team (Late st Contact Info) Description 05/16/2024 11:15 AM MILL SUPERVISOR Infusion [facility] [address] [place] [phone] Crohn's disease of large intestine without complication (CMS/HCC) (HCC) (Primary Dx) Social History Tobacco Use Types Packs/Day Years Used Date Smoking Tobacco: Former Smokeless Tobacco: Never Alcohol Use Standard Drinks/Week Comments Yes 1 (1 standard drink = 0.6 oz pur e alcohol) Comments Unknown Sex and Gender Information Value Date Recorded Sex Assigned at Not on file 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:53 AM MILL SUPERVISOR Gender Identity Not on file Sexual Orientation Not on file documented as of this encounter Last Filed Vital Signs Vital Sign Reading Time Taken Comments Blood Pressure 125/85 05/16/2024 11:30 AM MILL SUPERVISOR Pulse 78 05/16/2024 11:30 AM MILL SUPERVISOR Temperature 36.7 ??C (98.1 ??F) 05/16/2024 1 1:30 AM MILL SUPERVISOR Respiratory Rate 18 05/16/2024 11:3 0 AM MILL SUPERVISOR Oxygen Saturation 98% 05/16/2024 11: 30 AM MILL SUPERVISOR Inhaled Oxygen Concentration - - Weight 64.3 kg (141 lb 11.2 oz) 024 11:13 AM MILL SUPERVISOR Height - - Body Mass Index 26.34 06/15/2023 9:09 AM MILL SUPERVISOR documented in this encounter Progress Notes * Marian Vera RPh - 05/16/2024 11:15 AM CST Pharmacy Note - Biotherapy Dose Rounding Infliximab or infliximab biosimilar has been rounded from 640 mg ( 10 mg/kg) to 600 mg per the MTS policy approved by [facility] Pharmacy and Therapeutics committee. [facility] Pharmacy and Therapeutics committee as approved the following: ?? 10% dose rounding policy for biotherapy agents to the nearest vial size Marian Vera RPh 05/16/24 11:26 AM SUPERVISOR documented in this encounter Nursing Notes * Andrea Seay RN - 05/16/2024 11:15 AM CST Ambulatory to infusion center for Remicade, denies any recent infections, fevers, antibiotic therapy, or colds. TB neg and expires 01/24/25 . PIV started, positive blood flow noted. Premeds given 30 minutes prior to infusion. Remicade infused and titrated per protocol without incident. Discharged home in stable condition with follow up appt scheduled. SUPERVISOR documented in this encounter Plan of Treatment Not on file documented as of this encounter Visit Diagnoses Diagnosis Crohn's disease of large intestine without complication (CMS/HCC) ([facility])- Primary documented in this encounter Administered Medications Inactive Administered Medications - up to 3 most recent administrations Medication Order MAR Action Action Date Dose Rate Site acetaminophen (TYLENOL) tablet 650 mg 650 mg, oral, Once, On Sun05/16/24 at 1145, For 1 dose, Give 30 minutes prior to infusion for infusion reaction prophylaxis.Indications:Crohn's disease of large intestine without complication (CMS/HCC) (HCC) Given 05/16/2024 11:16 AM MILL SUPERVISOR 650 mg diphenhydrAMINE (BENADRYL) tab/cap 25 mg 25 mg, oral, Once, On Sun05/16/24 at 1145, For 1 dose, Give 30 minutes prior to infusion for infusion reaction prophylaxis.Indications:Crohn's disease of large intestine without complication (CMS/HCC) ([facility]) Given 05/16/2024 11:16 AM MILL SUPERVISOR 25 mg inFLIXimab (REMICADE) 600 mg in sodium chloride 0.9% 250 mL IVPB 600 mg, intravenous, Once, On Sun05/16/24 at 1215, For 1 dose, MAINTENANCE DOSE: Begin 8 [...] until infusion is completed FOR REACTIONS-STOP INFUSION. Use 1.2 micron filter or less, low-sorbing, low protein binding.Indications:Crohn's disease of large intestine without complication (CMS/HCC) ([facility]) New Bag 05/16/2024 11:53 AM MILL SUPERVISOR 600 mg documented in this encounter Orders Nursing Count Last Ordered Date First Orde red Date HEIGHT AND WEIGHT 1 05/16/2024 NURSING COMMUNICATION 1 05/16/2024 ONCBCN PROVIDER COMMUNICATION 1 1 VITAL SIGNS INTRA-INFUSION 1 05/16/2024 documented in this encounter Care Teams Insurance Counsel Relationship Specialty Start Date End Date Tae Mcfarland MD [address] [place] [address] PCP - General 06/18/20 documented as of this encounter
--- OUTSIDE RECORDS SUMMARY | 2024-06-10 07:02 | XMS_ITS | Encounter Summary ---
Author Organization [facility] Healthcare Address [address] [place] [address] Care Team Providers Care Applied Anthropologist Name Role Phone Tae Mcfarland MD Primary Care Provide r Reason for Visit * Reason Comments OP Infusion * Episode Based Medications (Routine) - Closed Specialty Diagnoses / Procedures Referred By Contac t Referred To Contact Diagnoses Crohn's disease of large intestine without complication (CMS/HCC) (HCC) Myles Mahajan, DO [address] [address] Phone: tel: fax: [facility] [address] [place] [phone] Phone: tel: fax: Referral ID Status Reason Start Date Expiration Date Visits Re quested Visits Authorized [id number] Closed 10/04/2022 11/03/2023 99 99 Encounter Details Date Type Department Care Team (Late st Contact Info) Description 11/02/2023 9:00 AM CDT Infusion [facility] [address] [place] [phone] Crohn's disease of large intestine without complication (CMS/HCC) (HCC) (Primary Dx) Social History Tobacco Use Types Packs/Day Years Used Date Smoking Tobacco: Former Smokeless Tobacco: Never Alcohol Use Standard Drinks/Week Comments Yes 1 (1 standard drink = 0.6 oz pur e alcohol) Comments Unknown Sex and Gender Information Value Date Recorded Sex Assigned at Not on file 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:53 AM CLINICAL DOCUMENTATION CLERK Gender Identity Not on file Sexual Orientation Not on file documented as of this encounter Last Filed Vital Signs Vital Sign Reading Time Taken Comments Blood Pressure 122/81 11/02/2023 8:50 AM CDT Pulse 83 11/02/2023 8:50 AM CDT Temperature 35.7 ??C (96.2 ??F) 11/02/2023 8:50 AM CD T Respiratory Rate 16 11/02/2023 8:50 AM CDT Oxygen Saturation 99% 11/02/2023 8:50 AM CDT Inhaled Oxygen Concentration - - Weight 59.7 kg (131 lb 9.6 oz) 11/02/2023 8:44 A M CDT Height - - Body Mass Index 24.46 06/15/2023 9:09 AM CLINICAL DOCUMENTATION CLERK documented in this encounter Nursing Notes * Jai Botello RN - 11/02/2023 9:00 AM CDT Pt arrives for Remicade infusion. TB test negative on 02/03/24. Pt denies recent abx use, or s/sx ofan infection. PIV started with good blood return. Infusion titrated per orders. Pt tolerated infusion well without s/sx of a reaction. PIV removed and dressing applied. Schedule confirmed. Pt ambulatory at d/c. documented in this encounter Plan of Treatment Not on file documented as of this encounter Visit Diagnoses Diagnosis Crohn's disease of large intestine without complication (CMS/HCC) (HCC)- Primary documented in this encounter Administered Medications Inactive Administered Medications - up to 3 most recent administrations Medication Order MAR Action Action Date Dose Rate Site acetaminophen (TYLENOL) tablet 650 mg 650 mg, oral, Once, On Sun11/02/23 at 0930, For 1 dose, Give 30 minutes prior to infusion for infusion reaction prophylaxis.Indications:Crohn's disease of large intestine without complication (CMS/HCC) (HCC) Given 11/02/2023 8:59 AM CDT 650 mg Carrier Fluids for Secondary Infusion - 0.9% Sodium Chloride 30 mL, intravenous, As needed, For priming tubing and/or flushing, Starting on Sun11/02/23 at 0856, 0-250ml/hr to flush line after IV infusions when no maintenance IV ordered. Infuse 30mL at the same rate as the secondary infusion. Run as primary IV, not intended for KVOIndications:Crohn's disease of large intestine without complication (CMS/HCC) ([facility]) Given 11/02/2023 11:44 AM CDT 30 mL diphenhydrAMINE (BENADRYL) tab/cap 25 mg 25 mg, oral, Once, On Sun11/02/23 at 0930, For 1 dose, Give 30 minutes prior to infusion for infusion reaction prophylaxis.Indications:Crohn's disease of large intestine without complication (CMS/HCC) ([facility]) Given 11/02/2023 8:59 AM CDT 25 mg inFLIXimab (REMICADE) 600 mg in sodium chloride 0.9% 250 mL IVPB 600 mg (rounded from 597 mg = 10 mg/kg ? 59.7 kg), intravenous, Once, On Sun11/02/23 at 1000, For 1 dose, MAINTENANCE DOSE: Begin 8 [...] disease of large intestine without complication (CMS/HCC) ([facility]) New Bag 11/02/2023 9:30 AM CDT 600 mg documented in this encounter Orders Nursing Count Last Ordered Date First Orde red Date HEIGHT AND WEIGHT 1 11/02/2023 NURSING COMMUNICATION 1 11/02/2023 ONCBCN PROVIDER COMMUNICATION 1 1 4 VITAL SIGNS INTRA-INFUSION 1 11/02/2023 documented in this encounter Care Teams Applied Anthropologist Relationship Specialty Start Date End Date Tae Mcfarland MD [address] [place] [address] PCP - General 06/18/20 documented as of this encounter
--- OUTSIDE RECORDS SUMMARY | 2024-06-10 07:02 | XMS_ITS | Encounter Summary ---
Author Organization [facility] Healthcare Address [address] [place] [address] Care Team Providers Care Dye House Supervisor Name Role Phone Tae Mcfarland MD Primary Care Provide r Reason for Visit * Reason Comments OP Infusion * Episode Based Medications (Routine) - Closed Specialty Diagnoses / Procedures Referred By Contac t Referred To Contact Diagnoses Crohn's disease of large intestine without complication (CMS/HCC) (HCC) Myles Mahajan, DO [address] [place] [id number] Phone: tel: fax: [facility] [address] [place] [phone] Phone: tel: fax: Referral ID Status Reason Start Date Expiration Date Visits Re quested Visits Authorized [id number] Closed 10/04/2022 11/03/2023 99 99 Encounter Details Date Type Department Care Team (Late st Contact Info) Description 10/05/2023 8:00 AM CDT Infusion [facility] [address] [place] [phone] Crohn's disease of large intestine without complication (CMS/HCC) (HCC) (Primary Dx) Social History Tobacco Use Types Packs/Day Years Used Date Smoking Tobacco: Former Smokeless Tobacco: Never Alcohol Use Standard Drinks/Week Comments Yes 1 (1 standard drink = 0.6 oz pur e alcohol) Comments Unknown Sex and Gender Information Value Date Recorded Sex Assigned at Not on file 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 Gender Identity Not on file Sexual Orientation Not on file documented as of this encounter Last Filed Vital Signs Vital Sign Reading Time Taken Comments Blood Pressure 130/82 10/05/2023 8:37 AM CDT Pulse 75 10/05/2023 8:37 AM CDT Temperature 36.1 ??C (96.9 ??F) 10/05/2023 8:37 AM CD T Respiratory Rate 16 10/05/2023 8:37 AM CDT Oxygen Saturation 99% 10/05/2023 8:37 AM CDT Inhaled Oxygen Concentration - - Weight 61.7 kg (136 lb 1.6 oz) 10/05/2023 8:01 A M CDT Height - - Body Mass Index 25.3 06/15/2023 9:09 AM NATIONAL VAN TRUCK DRIVER documented in this encounter Progress Notes * Yoselin Agosto RPh - 10/05/2023 8:00 AM CDT Pharmacy Note - Biotherapy Dose Rounding Infliximab or infliximab biosimilar has been rounded from 620 mg ( 10 mg/kg) to 600 mg per the MTS policy approved by [facility] Pharmacy and Therapeutics committee. [facility] Pharmacy and Therapeutics committee as approved the following: ?? 10% dose rounding policy for biotherapy agents to the nearest vial size Yoselin Agosto RPh 10/05/23 8:36 AM documented in this encounter Nursing Notes * Melissa Leal RN - 10/05/2023 8:00 AM CDT Pt arrives for Remicade infusion. Pt denies recent fevers, infections and abx use. TB expires 02/03/2024. Premeds administered 30 min prior to start of infusion. PIV started, (+) blood return. Infusion titrated per order. Pt tolerated infusion. PIV removed, pressure dressing applied. Schedule confirmed. Pt D/C ambulatory in stable condition. documented in this encounter Plan of Treatment Not on file documented as of this encounter Visit Diagnoses Diagnosis Crohn's disease of large intestine without complication (CMS/HCC) ([facility])- Primary documented in this encounter Administered Medications Inactive Administered Medications - up to 3 most recent administrations Medication Order MAR Action Action Date Dose Rate Site acetaminophen (TYLENOL) tablet 650 mg 650 mg, oral, Once, On Sun10/05/23 at 0915, For 1 dose, Give 30 minutes prior to infusion for infusion reaction prophylaxis.Indications:Crohn's disease of large intestine without complication (CMS/HCC) ([facility]) Given 10/05/2023 8:34 AM CDT 650 mg diphenhydrAMINE (BENADRYL) tab/cap 25 mg 25 mg, oral, Once, On Sun10/05/23 at 0915, For 1 dose, Give 30 minutes prior to infusion for infusion reaction prophylaxis.Indications:Crohn's disease of large intestine without complication (CMS/HCC) ([facility]) Given 10/05/2023 8:34 AM CDT 25 mg inFLIXimab (REMICADE) 600 mg in sodium chloride 0.9% 250 mL IVPB 600 mg, intravenous, Once, On Sun10/05/23 at 0945, For 1 dose, MAINTENANCE DOSE: [...] until infusion is complete FOR REACTIONS-STOP INFUSION Use 1.2 micron filter or less, low-sorbing, low protein binding.Indications:Crohn's disease of large intestine without complication (CMS/HCC) ([facility]) New Bag 10/05/2023 9:10 AM CDT 600 mg documented in this encounter Orders Medications Ordered That [place] ht Not Have Been Administered Count Last Ordered Date First Ordered Date Carrier Fluids for Secondary Infusion - 0.9% Sodium Chloride 1 10/05/2023 Nursing Count Last Ordered Date First Orde red Date HEIGHT AND WEIGHT 1 10/05/2023 NURSING COMMUNICATION 1 10/05/2023 VITAL SIGNS INTRA-INFUSION 1 10/05/2023 documented in this encounter Care Teams Dye House Supervisor Relationship Specialty Start Date End Date Tae Mcfarland MD [address] [place] [address] PCP - General 06/18/20 documented as of this encounter
--- OUTSIDE RECORDS SUMMARY | 2024-06-10 07:02 | XMS_ITS | Encounter Summary ---
Author Organization [facility] Healthcare Address [address] [place] [address] Care Team Providers Care Casing Operator Name Role Phone Tae Mcfarland MD Primary Care Provide r Reason for Visit * Reason Comments OP Infusion * Episode Based Medications (Routine) - Authorized Specialty Diagnoses / Procedures Referred By Contac t Referred To Contact Diagnoses Crohn's disease of large intestine without complication (CMS/HCC) (HCC) [facility] [address] [place] [phone] Phone: tel: fax: [facility] [address] [place] [phone] Phone: tel: fax: Referral ID Status Reason Start Date Expiration Date V isits Requested Visits Authorized [id number] Authorized 09/25/2023 10/24/2024 99 99 Encounter Details Date Type Department Care Team (Late st Contact Info) Description 03/21/2024 8:30 AM CDT Infusion 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 Gender Identity Not on file Sexual Orientation Not on file documented as of this encounter Last Filed Vital Signs Vital Sign Reading Time Taken Comments Blood Pressure 109/74 03/21/2024 8:42 AM CDT Pulse 66 03/21/2024 8:42 AM CDT Temperature - - Respiratory Rate 18 03/21/2024 8:42 AM CDT Oxygen Saturation 99% 03/21/2024 8:42 AM CDT Inhaled Oxygen Concentration - - Weight 63.8 kg (140 lb 9.6 oz) 03/21/2024 8:29 A M CDT Height - - Body Mass Index 26.14 06/15/2023 9:09 AM SOLUTION DESIGN ENGINEER documented in this encounter Progress Notes * Christine Denton RP - 03/21/2024 8:30 AM CDT Pharmacy Note - Biotherapy Dose Rounding Infliximab or infliximab biosimilar has been rounded from 640 mg ( 10 mg/kg) to 600 mg per the MTS policy approved by [facility] Pharmacy and Therapeutics committee. [facility] Pharmacy and Therapeutics committee as approved the following: ?? 10% dose rounding policy for biotherapy agents to the nearest vial size Christine Denton RPh 03/21/24 8:35 AM documented in this encounter Nursing Notes * Kia Diaz RN - 03/21/2024 8:30 AM CDT Pt arrived for Remicade infusion. TB exp 01/24/25. PIV started (+) blood return. Pt denied any recent infection, fever, or ABX use. Pt premedicated with tylenol and benadryl. Remicade titrated per MARinstructions and pt tolerated infusion well. PIV removed, dressing applied. Pt confirmed upcoming appointment. Pt ambulatory and stable for discharge. documented in this encounter Plan of Treatment Not on file documented as of this encounter Visit Diagnoses Diagnosis Crohn's disease of large intestine without complication (CMS/HCC) ([facility])- Primary documented in this encounter Administered Medications Inactive Administered Medications - up to 3 most recent administrations Medication Order MAR Action Action Date Dose Rate Site acetaminophen (TYLENOL) tablet 650 mg 650 mg, oral, Once, On Sun03/21/24 at 0900, For 1 dose, Give 30 minutes prior to infusion for infusion reaction prophylaxis.Indications:Crohn's disease of large intestine without complication (CMS/HCC) (HCC) Given 03/21/2024 8:31 AM CDT 650 mg diphenhydrAMINE (BENADRYL) tab/cap 25 mg 25 mg, oral, Once, On Sun03/21/24 at 0900, For 1 dose, Give 30 minutes prior to infusion for infusion reaction prophylaxis.Indications:Crohn's disease of large intestine without complication (CMS/HCC) ([facility]) Given 03/21/2024 8:31 AM CDT 25 mg inFLIXimab (REMICADE) 600 mg in sodium chloride 0.9% 250 mL IVPB 600 mg, intravenous, Once, On Sun03/21/24 at 0930, For 1 dose, MAINTENANCE DOSE: Begin 8 [...] disease of large intestine without complication (CMS/HCC) ([facility]) New Bag 03/21/2024 9:15 AM CDT 600 mg documented in this encounter Orders Nursing Count Last Ordered Date First Orde red Date HEIGHT AND WEIGHT 1 03/21/2024 NURSING COMMUNICATION 1 03/21/2024 VITAL SIGNS INTRA-INFUSION 1 03/21/2024 documented in this encounter Care Teams Casing Operator Relationship Specialty Start Date End Date Tae Mcfarland MD [address] [place] [address] PCP - General 06/18/20 documented as of this encounter
--- OUTSIDE RECORDS SUMMARY | 2024-06-10 07:02 | XMS_ITS | Encounter Summary ---
Author Organization [facility] Healthcare Address [address] [place] [address] Care Team Providers Care Terrapin Fisher Name Role Phone Tae Mcfarland MD Primary Care Provide r Reason for Visit * Reason Comments OP Infusion * Episode Based Medications (Routine) - Closed Specialty Diagnoses / Procedures Referred By Contac t Referred To Contact Diagnoses Crohn's disease of large intestine without complication (CMS/HCC) (HCC) Myles Mahajan, DO [address] [address] Phone: tel: fax: [facility] [address] [place] [phone] Phone: tel: fax: Referral ID Status Reason Start Date Expiration Date Visits Re quested Visits Authorized [id number] Closed 10/04/2022 11/03/2023 99 99 Encounter Details Date Type Department Care Team (Late st Contact Info) Description 09/07/2023 9:00 AM CDT Infusion [facility] [address] [place] [phone] Crohn's disease of large intestine without complication (CMS/HCC) (HCC) (Primary Dx) Social History Tobacco Use Types Packs/Day Years Used Date Smoking Tobacco: Former Smokeless Tobacco: Never Alcohol Use Standard Drinks/Week Comments Yes 1 (1 standard drink = 0.6 oz pur e alcohol) Comments Unknown Sex and Gender Information Value Date Recorded Sex Assigned at Not on file 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:53 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 Gender Identity Not on file Sexual Orientation Not on file documented as of this encounter Last Filed Vital Signs Vital Sign Reading Time Taken Comments Blood Pressure 126/77 09/07/2023 9:03 AM CDT Pulse 59 09/07/2023 9:03 AM CDT Temperature 36.5 ??C (97.7 ??F) 09/07/2023 9:03 AM CD T Respiratory Rate 16 09/07/2023 9:03 AM CDT Oxygen Saturation 100% 09/07/2023 9:03 AM CDT Inhaled Oxygen Concentration - - Weight 60.7 kg (133 lb 12.8 oz) 09/07/2023 9:03 AM CDT Height - - Body Mass Index 24.87 06/15/2023 9:09 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 documented in this encounter Progress Notes * Marian Vera RPh - 09/07/2023 9:00 AM CDT Pharmacy Note - Biotherapy Dose Rounding Infliximab or infliximab biosimilar has been rounded from 590 mg ( 10 mg/kg) to 600 mg per the MTS policy approved by [facility] Pharmacy and Therapeutics committee. [facility] Pharmacy and Therapeutics committee as approved the following: ?? 10% dose rounding policy for biotherapy agents to the nearest vial size Marian Vera RPh 09/07/23 9:04 AM documented in this encounter Nursing Notes * Melissa Leal RN - 09/07/2023 9:00 AM CDT Pt arrives for Remicade infusion. Pt denies recent fevers, infections and abx use. Premeds administered 30 min prior to infusion start time. PIV started, (+) blood return. Infusion titrated per AUG. Pt tolerated treatment. PIV removed, pressure dressing applied. Schedule confirmed. Pt D/C ambulatory. documented in this encounter Plan of Treatment Not on file documented as of this encounter Visit Diagnoses Diagnosis Crohn's disease of large intestine without complication ([facility]/HCC) ([facility])- Primary documented in this encounter Administered Medications Inactive Administered Medications - up to 3 most recent administrations Medication Order MAR Action Action Date Dose Rate Site acetaminophen (TYLENOL) tablet 650 mg 650 mg, oral, Once, On Sun09/07/23 at 0945, For 1 dose, Give 30 minutes prior to infusion for infusion reaction prophylaxis.Indications:Crohn's disease of large intestine without complication (CMS/HCC) ([facility]) Given 09/07/2023 9:07 AM CDT 650 mg diphenhydrAMINE (BENADRYL) tab/cap 25 mg 25 mg, oral, Once, On Sun09/07/23 at 0945, For 1 dose, Give 30 minutes prior to infusion for infusion reaction prophylaxis.Indications:Crohn's disease of large intestine without complication (CMS/HCC) ([facility]) Given 09/07/2023 9:07 AM CDT 25 mg inFLIXimab (REMICADE) 600 mg in sodium chloride 0.9% 250 mL IVPB 600 mg, intravenous, Once, On Sun09/07/23 at 1015, For 1 dose, MAINTENANCE DOSE: Begin 4 weeks after completion of loading doses For [...] disease of large intestine without complication (CMS/HCC) ([facility]) New Bag 09/07/2023 9:35 AM CDT 600 mg documented in this encounter Orders Medications Ordered That Kaushal ht Not Have Been Administered Count Last Ordered Date First Ordered Date Carrier Fluids for Secondary Infusion - 0.9% Sodium Chloride 1 09/07/2023 Nursing Count Last Ordered Date First Orde red Date HEIGHT AND WEIGHT 1 09/07/2023 NURSING COMMUNICATION 1 09/07/2023 ONCBCN PROVIDER COMMUNICATION 1 1 VITAL SIGNS INTRA-INFUSION 1 09/07/2023 documented in this encounter Care Teams Terrapin Fisher Relationship Specialty Start Date End Date Tae Mcfarland MD [address] [place] [address] PCP - General 06/18/20 documented as of this encounter
--- OUTSIDE RECORDS SUMMARY | 2024-06-10 07:02 | XMS_ITS | Encounter Summary ---
Author Organization [facility] Healthcare Address [address] [place] [address] Care Team Providers Care Nurse Name Role Phone Tae Mcfarland MD Primary Care Provide r Reason for Visit * Reason Comments OP Infusion * Episode Based Medications (Routine) - Closed Specialty Diagnoses / Procedures Referred By Contac t Referred To Contact Diagnoses Crohn's disease of large intestine without complication (CMS/HCC) (HCC) Myles Mahajan, DO [address] [place] [address] Phone: tel: fax: [facility] [address] [place] [phone] Phone: tel: fax: Referral ID Status Reason Start Date Expiration Date Visits Re quested Visits Authorized [id number] Closed 10/04/2022 11/03/2023 99 99 Encounter Details Date Type Department Care Team (Late st Contact Info) Description 12/26/2023 9:00 AM CDT Infusion 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 Gender Identity Not on file Sexual Orientation Not on file documented as of this encounter Last Filed Vital Signs Vital Sign Reading Time Taken Comments Blood Pressure 145/98 12/26/2023 10:30 AM CDT Pulse 65 12/26/2023 10:30 AM CDT Temperature 35.4 ??C (95.7 ??F) 12/26/2023 1 0:30 AM CDT Respiratory Rate 18 12/26/2023 10:3 0 AM CDT Oxygen Saturation 100% 12/26/2023 10: 30 AM CDT Inhaled Oxygen Concentration - - Weight 62.9 kg (138 lb 11.2 oz) 12/26/2023 9:11 AM CDT Height - - Body Mass Index 25.78 06/15/2023 9:09 AM CHILDREN'S COUNSELOR documented in this encounter Progress Notes * Valentine Covarrubias RPh - 12/26/2023 9:00 AM CDT Pharmacy Note - Biotherapy Dose Rounding Infliximab or infliximab biosimilar has been rounded from 630 mg ( 10 mg/kg) to 600 mg per the MTS policy approved by [facility] Pharmacy and Therapeutics committee. [facility] Pharmacy and Therapeutics committee as approved the following: ?? 10% dose rounding policy for biotherapy agents to the nearest vial size Valentine Covarrubias RPh 12/26/23 9:21 AM documented in this encounter Nursing Notes * Lissette Callaway RN - 12/26/2023 9:00 AM CDT Patient arrives ambulatory for Remicade. VSS. TB neg on 02/03/24. Denies any recent infections, fevers, antibiotics. PIV started with +blood return, flushes freely. Tolerated infusion well , titrated as ordered. IV dc'd. Schedule verified. Discharged ambulatory. documented in this encounter Plan of [...] 650 mg 650 mg, oral, Once, On Sun12/26/23 at 0945, For 1 dose, Give 30 minutes prior to infusion for infusion reaction prophylaxis.Indications:Crohn's disease of large intestine without complication (CMS/HCC) (HCC) Given 12/26/2023 9:18 AM CDT 650 mg diphenhydrAMINE (BENADRYL) tab/cap 25 mg 25 mg, oral, Once, On Sun12/26/23 at 0945, For 1 dose, Give 30 minutes prior to infusion for infusion reaction prophylaxis.Indications:Crohn's disease of large intestine without complication (CMS/HCC) (HCC) Given 12/26/2023 9:19 AM CDT 25 mg inFLIXimab (REMICADE) 600 mg in sodium chloride 0.9% 250 mL IVPB 600 mg, intravenous, Once, On Sun12/26/23 at 1015, For 1 dose, MAINTENANCE DOSE: Begin 8 [...] intestine without complication (CMS/HCC) (HCC) New Bag 12/26/2023 10:13 AM CDT 600 mg documented in this encounter Care Teams Nurse Relationship Specialty Start Date End Date Tae Mcfarland MD [address] [place] [address] PCP - General 06/18/20 documented as of this encounter
--- OUTSIDE RECORDS SUMMARY | 2024-06-10 07:02 | XMS_ITS | Encounter Summary ---
Author Organization [facility] Address [address] [place] [address] Care Team Providers Care Research Kennel Supervisor Name Role Phone Tae Mcfarland MD Primary Care Provide r Reason for Referral * MRI/CAT/PET Scan (Routine) - Closed Specialty Diagnoses / Procedures Referred By Contac t Referred To Contact Radiology Diagnoses Meningioma (HCC) Procedures MRI Brain W WO Contrast Paul Arndt MD [address] [address] Phone: tel: fax: [address] [phone] Referral ID Status Reason Start Date Expiration Date Visits Re quested Visits Authorized [id number] Closed 02/05/2024 05/05/2024 1 1 Reason for Visit * MRI/CAT/PET Scan (Routine) - Closed Specialty Diagnoses / Procedures Referred By Contac t Referred To Contact Radiology Diagnoses Meningioma (HCC) Procedures MRI Brain W WO Contrast Paul Arndt MD [address] [address] Phone: tel: fax: [address] [phone] Referral ID Status Reason Start Date Expiration Date Visits Re quested Visits Authorized [id number] Closed 02/05/2024 05/05/2024 1 1 Encounter Details Date Type Department Care Team (Latest Contact Info) Description 02/05/2024 9:40 AM CDT - 02/05/2024 11:59 PM CDT Hospital Encounter [address] [id number] Meningioma (HCC) Discharge Disposition: Discharge to home or self care Social History Tobacco Use Types Packs/Day Years Used Date Smoking Tobacco: Former Smokeless Tobacco: Never Alcohol Use Standard Drinks/Week Comments Yes 1 (1 standard drink = 0.6 oz pur e alcohol) Comments Unknown Sex and Gender Information Value Date Recorded Sex Assigned at Not on file 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:53 AM COACH WIRER Gender Identity Not on file Sexual Orientation Not on file documented as of this encounter Medications at Time of Discharge ALPRAZolam (XANAX) 0.5 mg tablet Take 1 tablet (0.5 mg total) by mouth 3 (three) times a day as needed 08/09/2021 ALPRAZolam (XANAX) 0.5 mg tablet TAKE 1 TABLET BY MOUTH THREE TIMES A DAY NEEDED FOR ANXIETY 10/25/2022 amitriptyline (ELAVIL) 25 mg tablet Take 1 tablet (25 mg total) by mouth nightly amitriptyline (ELAVIL) 25 mg tablet Take 1 tablet (25 mg total) by mouth daily amLODIPine (NORVASC) 5 mg tablet Take 1 tablet (5 mg total) by mouth insurance instructor before breakfast amLODIPine (NORVASC) 5 mg tablet Take 1 tablet (5 mg total) by mouth daily atorvastatin (LIPITOR) 20 mg tablet Take 1 tablet (20 mg total) by mouth cephalexin (KEFLEX) 500 mg capsule Take 1 capsule (500 mg total) by mouth every 12 (twelve) hours 05/09/2021 cholecalciferol (VITAMIN D-3) 25 mcg (1,000 unit) tablet Take 1 tablet (1,000 Units total) by mouth daily dicyclomine (BENTYL) 20 mg tablet Take 1 tablet (20 mg total) by mouth every 6 (six) hours DULoxetine DR (CYMBALTA) 60 mg capsule 12/01/2021 eszopiclone (LUNESTA) 2 mg tablet 11/11/2021 gabapentin (NEURONTIN) 300 mg capsule Take 1 capsule (300 mg total) by mouth 3 (three) times a day hydroCHLOROthiaz kleber (HYDRODIURIL) 25 mg tablet Take 1 tablet (25 mg total) by mouth insurance instructor before breakfast hydroCHLOROthiaz kleber (HYDRODIURIL) 25 mg tablet Take 1 tablet (25 mg total) by mouth daily ibuprofen, bulk, 100 % powder Take by mouth levothyroxine (SYNTHROID) 100 mcg tablet Take 1 tablet (100 mcg total) by mouth daily 10/02/2022 levothyroxine sodium (TIROSINT) 50 mcg capsule 125 mcg insurance instructor before breakfast. lisinopriL (PRINIVIL,ZESTRI L) 40 mg tablet Take 1 tablet (40 mg total) by mouth daily losartan (COZAAR) 50 mg tablet Take 50 mg by mouth insurance instructor before breakfast. meloxicam (MOBIC) 7.5 mg tablet Take 1 tablet (7.5 mg total) by mouth 2 (two) times a day. 60 tablet 2 02/25/2018 metFORMIN (GLUCOPHAGE) 500 mg tablet Take 1 tablet (500 mg total) by mouth metoprolol (LOPRESSOR) 100 mg tablet Take 1 tablet (100 mg total) by mouth daily multivit with min-folic acid (Adult One Daily Multivitamin) 0.4 mg tablet Take 1 tablet by mouth 3 (three) times a day with meals ondansetron (ZOFRAN) 4 mg tablet Take 1 tablet (4 mg total) by mouth 02/09/2021 propranoloL (INDERAL) 10 mg tablet Take 1 tablet (10 mg total) by mouth every 12 (twelve) hours 09/16/2022 QUEtiapine (SEROquel) 50 mg tablet Take 1 tablet (50 mg total) by mouth daily QUEtiapine (SEROquel) 50 mg tablet Take 1 tablet (50 mg total) by mouth nightly 10/24/2022 sertraline (ZOLOFT) 50 mg tablet Take 1 tablet (50 mg total) by mouth daily 08/27/2022 topiramate (TOPAMAX) 50 mg tablet Take 1 tablet (50 mg total) by mouth 2 (two) times a day venlafaxine (EFFEXOR) 37.5 mg tablet Take 1 tablet (37.5 mg total) by mouth daily zaleplon (SONATA) 5 mg capsule 11/25/2021 zolpidem (AMBIEN) 10 mg tablet Take 1 tablet (10 mg total) by mouth nightly as needed zolpidem (AMBIEN) 5 mg tabletIndication s:Sleep-Onset Insomnia Take 10 mg by mouth nightly as needed for sleep. documented as of this encounter Discharge Disposition Disposition Code Departure Means Destination Discharge to home or self care documented in this encounter Plan of Treatment Not on file documented as of this encounter Procedures Procedure Name Priority Date/Time Associated Diagnosis Comments MRI BRAIN W WO CONTRAST Schedule Routine, Read Routine (OP Routine) 02/05/2024 10:38 AM CDT Meningioma (HCC) documented in this encounter Results * MRI Brain W WO Contrast (02/05/2024 10:38 AM CDT) Anatomical Region Laterality Modality Head and Neck N/A Magnetic Resonan ce 02/05/2024 11:5 7 AM CDT Narrative 02/05/2024 12:11 PM CDT EXAM DESCRIPTION: ?? MRI BRAIN W WO CONTRAST REASON FOR STUDY: Meningioma follow up ?? TECHNIQUE: Multiplanar imaging includes noncontrast T1, T2, FLAIR, diffusion with ADC map and post contrast T1 sequences. Additional sequence(s) sensitive to blood products. ??Images stored on PACS. ? CONTRAST TYPE/DOSE: ?? 12mL of GADOTERATE MEGLUMINE 0.5 MMOL/ML INTRAVENOUS SOLUTION (SO) ??injected via ?? intravenous COMPARISON: ?? Brain MRI 02/28/[address] ??[address] 05/27/2021 FINDINGS: CEREBRUM: ?? No hemorrhage, edema, or mass effect. No abnormal enhancement. WHITE MATTER: ?? Occasional tiny foci of T2/FLAIR hyperintensity within the periventricular and subcortical white matter that are nonspecific but likely secondary to chronic microvascular ischemia. POSTERIOR FOSSA: ?? Brainstem and cerebellum appear unremarkable. ??No abnormal enhancement. DIFFUSION IMAGING: ?? No recent infarction. EXTRAAXIAL SPACES: ?? No abnormal extra-axial fluid collection. ??Normal ventricles. ??Unchanged 7 mm extra-axial dural-based enhancing lesion along the inferior margin of the right tentorium cerebellar in keeping with a probable meningioma. ??No new abnormal enhancement. BRAIN VOLUME: ?? Within normal limits for age. PITUITARY: ?? Unremarkable. VASCULATURE: ?? No flow disturbance identified. ORBITS: ?? No masses. Globes normal. PARANASAL SINUSES AND MASTOIDS: ?? Redemonstrated paranasal sinus postoperative changes with several unchanged lobular secretions. ??Small amount of fluid in the right mastoid air cells no middle ear fluid. ??Left mastoid air cells are clear. OTHER: ?? Right TMJ degenerative changes. IMPRESSION: No acute intracranial abnormality with chronic findings above. Stable 7 mm probable meningioma along the inferior margin of the right tentorium. THIS IS AN ELECTRONICALLY VERIFIED FINAL REPORT 02/05/2024 12:11 PM - Electronically signed by ??Ramon HERBERT D: ??02/05/2024 12:11 PM T: Report ID: [id number] Reading Location: ??[id number] Procedure Note Ramon Cortez MD - 02/05/2024 EXAM DESCRIPTION: MRI BRAIN W WO CONTRAST REASON FOR STUDY: Meningioma follow up TECHNIQUE: Multiplanar imaging includes noncontrast T1, T2, FLAIR,diffusion with ADC map and post contrast T1 sequences. Additional sequence(s)sensitive to blood products. Images stored on PACS. CONTRAST TYPE/DOSE: 12mL of GADOTERATE MEGLUMINE 0.5 MMOL/ML INTRAVENOUS SOLUTION (SO) injected via intravenous COMPARISON: Brain MRI 02/28/[address] 05/27/2021 FINDINGS: CEREBRUM: No hemorrhage, edema, or mass effect. No abnormal enhancement. WHITE MATTER: Occasional tiny foci of T2/FLAIR hyperintensity within the periventricular and subcortical white matter that are nonspecific butlikely secondary to chronic microvascular ischemia. POSTERIOR FOSSA: Brainstem and cerebellum appear unremarkable. Noabnormal enhancement. DIFFUSION IMAGING: No recent infarction. EXTRAAXIAL SPACES: No abnormal extra-axial fluid collection. Normal ventricles. Unchanged 7 mm extra-axial dural-based enhancing lesion alongthe inferior margin of the right tentorium cerebellar in keeping with aprobable meningioma. No new abnormal enhancement. BRAIN VOLUME: Within normal limits for age. PITUITARY: Unremarkable. VASCULATURE: No flow disturbance identified. ORBITS: No masses. Globes normal. PARANASAL SINUSES AND MASTOIDS: Redemonstrated paranasal sinuspostoperative changes with several unchanged lobular secretions. Small amount of fluidin the right mastoid air cells no middle ear fluid. Left mastoid air cellsare clear. OTHER: Right TMJ degenerative changes. IMPRESSION: No acute intracranial abnormality with chronic findings above. Stable 7 mm probable meningioma along the inferior margin of the right tentorium. THIS IS AN ELECTRONICALLY VERIFIED FINAL REPORT 02/05/2024 12:11 PM - Electronically signed by Ramon Cortez M.D. AG T: Report ID: [id number] Reading Location: [id number] Paul Arndt MD IMG MRI PROCEDURES Valentina l Result documented in this encounter Visit Diagnoses Diagnosis Meningioma (HCC) Benign neoplasm of cerebral meninges documented in this encounter Administered Medications Inactive Administered Medications - up to 3 most recent administrations Medication Order MAR Action Action Date Dose Rate Site gadoterate meglumine injection 12 mL 12 mL, intravenous, Once in imaging, contrast, Starting on 02/05/24 at 1019, For 1 dose Contrast Given 02/05/2024 10:25 AM CDT 12 mL documented in this encounter Orders Medications Ordered That Kaushal ht Not Have Been Administered Count Last Ordered Date First Ordered Date gadoterate meglumine injection 12 mL 1 01/10 documented in this encounter Care Teams Research Kennel Supervisor Relationship Specialty Start Date End Date Tae Mcfarland MD [address] [place] [address] PCP - General 06/18/20 documented as of this encounter
--- OUTSIDE RECORDS SUMMARY | 2024-06-10 07:02 | XMS_ITS | Clinical Summary ---
Author Organization [facility] Address [address] [place] [phone] Care Team Providers Care Rolling Machine Tender Name Role Phone Tae Mcfarland MD Primary Care Provide r Allergies Active Allergy Reactions Criticality Noted Date Comments Codeine Other (See comments),Palpitations Low 04/10/2021 Reaction: hives, ??, Reaction: hives, ??, Medications hydroCHLOROthiazid e (HYDRODIURIL) 25 mg tablet Take 1 tablet (25 mg total) by mouth early breastfeeding care specialist before breakfast Active topiramate (TOPAMAX) 50 mg tablet Take 1 tablet (50 mg total) by mouth 2 (two) times a day Active dicyclomine (BENTYL) 20 mg tablet Take 1 tablet (20 mg total) by mouth every 6 (six) hours Active amLODIPine (NORVASC) 5 mg tablet Take 1 tablet (5 mg total) by mouth early breastfeeding care specialist before breakfast Active losartan (COZAAR) 50 mg tablet Take 50 mg by mouth early breastfeeding care specialist before breakfast. Active amitriptyline (ELAVIL) 25 mg tablet Take 1 tablet (25 mg total) by mouth nightly Active zolpidem (AMBIEN) 5 mg tabletIndications: Sleep-Onset Insomnia Take 10 mg by mouth nightly as needed for sleep. Active levothyroxine sodium (TIROSINT) 50 mcg capsule 125 mcg early breastfeeding care specialist before breakfast. Active meloxicam (MOBIC) 7.5 mg tablet Take 1 tablet (7.5 mg total) by mouth 2 (two) times a day. 60 tablet 2 02/26/20 18 Active Additional Information Patient not taking.Reported on 10/30/2022 ibuprofen, bulk, 100 % powder Take by mouth Act young multivit with min-folic acid (Adult One Daily Multivitamin) 0.4 mg tablet Take 1 tablet by mouth 3 (three) times a day with meals Active ALPRAZolam (XANAX) 0.5 mg tablet Take 1 tablet (0.5 mg total) by mouth 3 (three) times a day as needed 08/10/19 22 Active ALPRAZolam (XANAX) 0.5 mg tablet TAKE 1 TABLET BY MOUTH THREE TIMES A DAY NEEDED FOR ANXIETY 10/26/19 23 Active atorvastatin (LIPITOR) 20 mg tablet Take 1 tablet (20 mg total) by mouth Active cephalexin (KEFLEX) 500 mg capsule Take 1 capsule (500 mg total) by mouth every 12 (twelve) hours 05/09/20 21 Active cholecalciferol (VITAMIN D-3) 25 mcg (1,000 unit) tablet Take 1 tablet (1,000 Units total) by mouth daily Active eszopiclone (LUNESTA) 2 mg tablet 11/12/[address] (CYMBALTA) 60 mg capsule 12/02/19 22 Active gabapentin (NEURONTIN) 300 mg capsule Take 1 capsule (300 mg total) by mouth 3 (three) times a day Active lisinopriL (PRINIVIL,ZESTRIL) 40 mg tablet Take 1 tablet (40 mg total) by mouth daily Active metFORMIN (GLUCOPHAGE) 500 mg tablet Take 1 tablet (500 mg total) by mouth Active metoprolol (LOPRESSOR) 100 mg tablet Take 1 tablet (100 mg total) by mouth daily Active ondansetron (ZOFRAN) 4 mg tablet Take 1 tablet (4 mg total) by mouth 02/10/20 21 Active propranoloL (INDERAL) 10 mg tablet Take 1 tablet (10 mg total) by mouth every 12 (twelve) hours 09/17/19 23 Active QUEtiapine (SEROquel) 50 mg tablet Take 1 tablet (50 mg total) by mouth daily Active QUEtiapine (SEROquel) 50 mg tablet Take 1 tablet (50 mg total) by mouth nightly 10/25/19 23 Active sertraline (ZOLOFT) 50 mg tablet Take 1 tablet (50 mg total) by mouth daily 08/28/19 23 Active venlafaxine (EFFEXOR) 37.5 mg tablet Take 1 tablet (37.5 mg total) by mouth daily Active zaleplon (SONATA) 5 mg capsule 11/26/19 22 Active amitriptyline (ELAVIL) 25 mg tablet Take 1 tablet (25 mg total) by mouth daily Active amLODIPine (NORVASC) 5 mg tablet Take 1 tablet (5 mg total) by mouth daily Active hydroCHLOROthiazid e (HYDRODIURIL) 25 mg tablet Take 1 tablet (25 mg total) by mouth daily Active levothyroxine (SYNTHROID) 100 mcg tablet Take 1 tablet (100 mcg total) by mouth daily 10/03/19 23 Active zolpidem (AMBIEN) 10 mg tablet Take 1 tablet (10 mg total) by mouth nightly as needed Active rizatriptan ELECTRON BEAM MACHINE WELDER SETTER (MAXALT-ELECTRON BEAM MACHINE WELDER SETTER) 10 mg disintegrating tabletIndications: Migraine Take 1 tablet (10 mg total) by mouth once as needed for migraine May repeat in 2 hours if unresolved. Do not exceed 30 mg in 24 hours. 9 tablet 3 11/28/19 23 Active Active Problems Problem Noted Date Diagnosed Date Closed displaced fracture of scaphoid bone of le ft wrist 02/25/2018 Overview (02/25/2018): Added automatically from request for surgery [id number] Crohn's disease of large int estine without complication (CMS/HCC) 08/09/2017 Knee pain 04/18/2017 Thyroid activity decreased 01/10/2011 Encounters Date Type Department Care Team Description 05/16/2024 11:15 AM RIDE ATTENDANT Infusion [facility] [address] [place] [phone] Crohn's disease of large intestine without complication (CMS/HCC) (HCC) (Primary Dx) 04/18/2024 10:15 AM RIDE ATTENDANT Infusion [facility] [address] [place] [phone] Crohn's disease of large intestine without complication (CMS/HCC) (HCC) (Primary Dx) 03/21/2024 8:30 AM CDT Infusion [facility] [address] [place] [phone] Crohn's disease of large intestine without complication (CMS/HCC) (HCC) (Primary Dx) from Last 3 Months Surgical History Surgery Date Site/Laterality Comments HERNIA REPAIR HYSTERECTOMY CHOLECYSTECTOMY Medical History Medical History Date Comments Migraines Thyroid disease Crohn's disease (CMS/HCC) (HCC) PONV (postoperative nausea and vomiting) Hypertension Family History Medical History Relation Name Comments Heart disease Father Family history of cardiac disorder - (Added by TW Conv) Hypertension Father Family history of hypertension - (Added by TW Conv) Arthritis Mother Family history of arthritis - (Added by TW Conv) Heart disease Mother Family history of cardiac disorder - (Added by TW Conv) Hypertension Mother Family history of hypertension - (Added by TW Conv) Relation Name Status Comments Father Mother Social History Tobacco Use Types Packs/Day Years Used Date Smoking Tobacco: Former Smokeless Tobacco: Never Tobacco Cessation:Counseling Given: Not Answered Alcohol Use Standard Drinks/Week Comments Yes 1 (1 standard drink = 0.6 oz pur e alcohol) Comments Unknown Sex and Gender Information Value Date Recorded Sex Assigned at Not on file 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:53 AM RIDE ATTENDANT Gender Identity Not on file Sexual Orientation Not on file Obstetrics History Last Filed Vital Signs Vital Sign Reading Time Taken Comments Blood Pressure 125/85 05/16/2024 11:30 AM RIDE ATTENDANT Pulse 78 05/16/2024 11:30 AM RIDE ATTENDANT Temperature 36.7 ??C (98.1 ??F) 05/16/2024 1 1:30 AM RIDE ATTENDANT Respiratory Rate 18 05/16/2024 11:3 0 AM RIDE ATTENDANT Oxygen Saturation 98% 05/16/2024 11: 30 AM RIDE ATTENDANT Inhaled Oxygen Concentration - - Weight 64.3 kg (141 lb 11.2 oz) 024 11:13 AM RIDE ATTENDANT Height 156.2 cm (5' 1.5 ) 06/15/2023 9:09 AM RIDE ATTENDANT Body Mass Index 26.34 06/15/2023 9:09 AM RIDE ATTENDANT Plan of Treatment Health Maintenance Due Date Last Done Comments Breast Cancer Screening-Mammogram 1960 Colon Cancer Screening-Colonoscopy 1960 Depression Screening 1960 Hepatitis C Screening 1960 DTaP/Tdap/Td Vaccine (1 - Tdap) 1971 Hepatitis B Screening 1978 Regular Well Visit/Exam 18-64 1978 Zoster Vaccine (1 of 2) 2010 Influenza Vaccine (#1) 2024 Pneumococcal vaccine <65 Aged Out No longer eligible based on patient's age to complete this topic Medical Devices Implanted Type Area Play Leader Device Identifier Shelf Expiration Date Model / Serial / Lot [employer] At2-M20 Acutrak 2 3.5-3.6mm 20mm Self Cut Cannulated Variable Pitch - S0 - [id number] Implanted:Qty: 1 on 02/26/2018 by Sebastián Bertrand MD at [facility] Screw Left: Arm [employer] 03/25/2024 AT2-M20 / 0 / [id number] Explanted Type Area Play Leader Device Identifier Shelf Expiration Date Model / Serial / Lot [employer] [id number] Shante .045in 4in [place] Both Ends Orthopedic Wire - [id number] Explanted:Qty: 2 on 02/26/2018 by Sebastián Bertrand MD at [facility] Wire Left: Arm [employer] [id number] / / Insurance [facility] MEDICARE [facility] [place] [address] [facility] Care Teams Rolling Machine Tender Relationship Specialty Start Date End Date Tae Mcfarland MD [address] [place], [place] [id number] PCP - General 06/18/20
--- OUTSIDE RECORDS SUMMARY | 2024-06-10 07:02 | XMS_ITS | Encounter Summary ---
Author Organization [facility] Healthcare Address [address] [place] [address] Care Team Providers Care Inspector Toys Name Role Phone Tae Mcfarland MD Primary Care Provide r Reason for Visit * Reason Comments OP Infusion * Episode Based Medications (Routine) - Authorized Specialty Diagnoses / Procedures Referred By Contac t Referred To Contact Diagnoses Crohn's disease of large intestine without complication (CMS/HCC) (HCC) [facility] [address] [place] [phone] Phone: tel: fax: [facility] [address] [place] [phone] Phone: tel: fax: Referral ID Status Reason Start Date Expiration Date V isits Requested Visits Authorized [id number] Authorized 09/25/2023 10/24/2024 99 99 Encounter Details Date Type Department Care Team (Late st Contact Info) Description 01/25/2024 9:00 AM CDT Infusion [facility] [address] [place] [phone] Crohn's disease of large intestine without complication (CMS/HCC) (HCC) (Primary Dx) Social History Tobacco Use Types Packs/Day Years Used Date Smoking Tobacco: Former Smokeless Tobacco: Never Alcohol Use Standard Drinks/Week Comments Yes 1 (1 standard drink = 0.6 oz pur e alcohol) Comments Unknown Sex and Gender Information Value Date Recorded Sex Assigned at Not on file 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:53 AM PAY STATION ATTENDANT Gender Identity Not on file Sexual Orientation Not on file documented as of this encounter Last Filed Vital Signs Vital Sign Reading Time Taken Comments Blood Pressure 117/72 01/25/2024 8:59 AM CDT Pulse 75 01/25/2024 8:59 AM CDT Temperature 36.2 ??C (97.2 ??F) 01/25/2024 8:59 AM CD T Respiratory Rate 16 01/25/2024 8:59 AM CDT Oxygen Saturation - - Inhaled Oxygen Concentration - - Weight 62.3 kg (137 lb 6.4 oz) 01/25/2024 8:59 A M CDT Height - - Body Mass Index 25.54 06/15/2023 9:09 AM PAY STATION ATTENDANT documented in this encounter Progress Notes * Christine Denton RPh - 01/25/2024 9:00 AM CDT Pharmacy Note - Biotherapy Dose Rounding Infliximab or infliximab biosimilar has been rounded from 620 mg ( 10 mg/kg) to 600 mg per the MTS policy approved by [facility] Pharmacy and Therapeutics committee. [facility] Pharmacy and Therapeutics committee as approved the following: ?? 10% dose rounding policy for biotherapy agents to the nearest vial size Christine Denton RPh 01/25/24 9:04 AM documented in this encounter Nursing Notes * Pauline Almanzar RN - 01/25/2024 9:00 AM CDT Here for remicade. Denies recent fevers/infections. Has pain to abd rated at 6 which is normal for her. Premeds given. PIV started. Tolerated remicade titrated per orders. PIV removed. Next appt scheduled. Ambulatory at d/c. documented in this encounter Plan of Treatment Not on file documented as of this encounter Visit Diagnoses Diagnosis Crohn's disease of large intestine without complication (CMS/HCC) ([facility])- Primary documented in this encounter Administered Medications Inactive Administered Medications - up to 3 most recent administrations Medication Order MAR Action Action Date Dose Rate Site acetaminophen (TYLENOL) tablet 650 mg 650 mg, oral, Once, On Sun01/25/24 at 0930, For 1 dose, Give 30 minutes prior to infusion for infusion reaction prophylaxis.Indications:Crohn's disease of large intestine without complication (CMS/HCC) ([facility]) Given 01/25/2024 9:09 AM CDT 650 mg Carrier Fluids for Secondary Infusion - 0.9% Sodium Chloride 30 mL, intravenous, As needed, For priming tubing and/or flushing, Starting on Sun01/25/24 at 0859, 0-250ml/hr to flush line after IV infusions when no maintenance IV ordered. Infuse 30mL at the same rate as the secondary infusion. Run as primary IV, not intended for KVOIndications:Crohn's disease of large intestine without complication (CMS/HCC) ([facility]) Given 01/25/2024 11:35 AM CDT 30 mL diphenhydrAMINE (BENADRYL) tab/cap 25 mg 25 mg, oral, Once, On Sun01/25/24 at 0930, For 1 dose, Give 30 minutes prior to infusion for infusion reaction prophylaxis.Indications:Crohn's disease of large intestine without complication (CMS/HCC) (HCC) Given 01/25/2024 9:09 AM CDT 25 mg inFLIXimab (REMICADE) 600 mg in sodium chloride 0.9% 250 mL IVPB 600 mg, intravenous, Once, On Sun01/25/24 at 0935, For 1 dose, MAINTENANCE DOSE: Begin 8 [...] until infusion is complete FOR REACTIONS-STOP INFUSION Pharmacy Note - Biotherapy Dose Rounding Infliximab or infliximab biosimilar has been rounded from 620 mg ( 10 mg/kg) to 600 mg per the [facility] policy approved by [facility] Pharmacy and Therapeutics committee. [facility] Pharmacy and Therapeutics committee as approved the following: ? 10% dose rounding policy for biotherapy agents to the nearest vial size Christine Denton, [facility] 01/25/24 9:04 AM Use 1.2 micron filter or less, low-sorbing, low protein binding.Indications:Crohn's disease of large intestine without complication (CMS/HCC) (HCC) New Bag 01/25/2024 9:35 AM CDT 600 mg documented in this encounter Orders Nursing Count Last Ordered Date First Orde red Date HEIGHT AND WEIGHT 1 01/25/2024 NURSING COMMUNICATION 1 01/25/2024 ONCBCN PROVIDER COMMUNICATION 1 1 VITAL SIGNS INTRA-INFUSION 1 01/25/2024 documented in this encounter Care Teams Inspector Toys Relationship Specialty Start Date End Date Tae Mcfarland MD [address] [place] [address] PCP - General 06/18/20 documented as of this encounter
--- OUTSIDE RECORDS SUMMARY | 2024-06-10 07:02 | XMS_ITS | Encounter Summary ---
Author Organization [facility] Healthcare Address [address] [place] [address] Care Team Providers Care Personal Counselor Name Role Phone Tae Mcfarland MD Primary Care Provide r Encounter Details Date Type Department Care Team (Late st Contact Info) Description 01/25/2024 8:45 AM CDT Lab [facility] Lab [facility] [place] [phone] Crohn's disease of large intestine without complication (CMS/HCC) (HCC) Social History Tobacco Use Types Packs/Day Years Used Date Smoking Tobacco: Former Smokeless Tobacco: Never Alcohol Use Standard Drinks/Week Comments Yes 1 (1 standard drink = 0.6 oz pur e alcohol) Comments Unknown Sex and Gender Information Value Date Recorded Sex Assigned at Not on file 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:53 AM NURSING EDUCATOR Gender Identity Not on file Sexual Orientation Not on file documented as of this encounter Plan of Treatment Not on file documented as of this encounter Procedures Procedure Name Priority Date/Time Associated Diagnosis Comments TB TEST, QUANTIFERON GOLD Routine 01/25/2024 8:46 AM CDT Crohn's disease of large intestine without complication (CMS/HCC) (HCC) documented in this encounter Results * TB test, quantiferon gold (01/25/2024 8:46 AM CDT) Pathologist [facility] Quantiferon TB Gold Negative Negative [facility] Comment: No interferon-gamma response to M. tuberculosis antigens was detected. Latent infection with M. tuberculosis is unlikely. A single negative result does not exclude infection with M. tuberculosis. In patients at high risk for M.tuberculosis infection, a second test should be considered in accordance with the 2017 ATS/IDSA/CDC Clinical Practice Guidelines for Diagnosis of Tuberculosis in Adults and Children [Lewinsohn DM et. al. Clin. Infect. Dis. 2017;64(2):111-115]. The reference range for the 'TB1 Ag minus Nil Result' and 'TB2 Ag minus Nil Result' is an Interferon-gamma level <0.35 IU/mL. TB-Nil 0.00 IUnits/mL [facility] TB2-Nil 0.00 IUnits/mL [facility] Mitogen-Nil 10.00 IUnits/mL [facility] NIL 0.00 IUnits/mL [facility] Comment: Test Performed by: [facility] [address] [place] [id number] Statistician: Kaley Madden Ph.D.; CLIA# [id number] Blood 01/25/2024 8:46 AM CDT 01/25/2024 9:11 AM CDT Ricardo Lozoya MD LAB BLOOD ORDERABLES Final Result [facility] [address] Department [place] [address] [facility] documented in this encounter Visit Diagnoses Diagnosis Crohn's disease of large intestine without complication (CMS/HCC) (HCC) documented in this encounter Care Teams Personal Counselor Relationship Specialty Start Date End Date Tae Mcfarland MD [address] [place] [address] PCP - General 06/18/20 documented as of this encounter
--- OUTSIDE RECORDS SUMMARY | 2024-06-10 07:02 | XMS_ITS | Referral Summary ---
Author Organization [facility] Address [address] [place] [phone] Care Team Providers Care Sole Skiver Name Role Phone Tae Mcfarland MD Primary Care Provide r Encounters Date Type Department Care Team Description 05/16/2024 11:15 AM BUSINESS ANALYTICS ANALYST Infusion [facility] [address] [place] [phone] Crohn's disease of large intestine without complication (CMS/HCC) (HCC) (Primary Dx) 04/18/2024 10:15 AM BUSINESS ANALYTICS ANALYST Infusion [facility] [address] [place] [phone] Crohn's disease of large intestine without complication (CMS/HCC) (HCC) (Primary Dx) 03/21/2024 8:30 AM CDT Infusion [facility] [address] [phone] Crohn's disease of large intestine without complication (CMS/HCC) (HCC) (Primary Dx) from Last 3 Months Allergies Active Allergy Reactions Criticality Noted Date Comments Codeine Other (See comments),Palpitations Low 04/10/2021 Reaction: hives, ??, Reaction: hives, ??, Medications hydroCHLOROthiazid e (HYDRODIURIL) 25 mg tablet Take 1 tablet (25 mg total) by mouth operator bearer systems before breakfast Active topiramate (TOPAMAX) 50 mg tablet Take 1 tablet (50 mg total) by mouth 2 (two) times a day Active dicyclomine (BENTYL) 20 mg tablet Take 1 tablet (20 mg total) by mouth every 6 (six) hours Active amLODIPine (NORVASC) 5 mg tablet Take 1 tablet (5 mg total) by mouth operator bearer systems before breakfast Active losartan (COZAAR) 50 mg tablet Take 50 mg by mouth operator bearer systems before breakfast. Active amitriptyline (ELAVIL) 25 mg tablet Take 1 tablet (25 mg total) by mouth nightly Active zolpidem (AMBIEN) 5 mg tabletIndications: Sleep-Onset Insomnia Take 10 mg by mouth nightly as needed for sleep. Active levothyroxine sodium (TIROSINT) 50 mcg capsule 125 mcg operator bearer systems before breakfast. Active meloxicam (MOBIC) 7.5 mg [...] by mouth nightly as needed Active rizatriptan TANK HOUSE SUPERVISOR (MAXALT-TANK HOUSE SUPERVISOR) 10 mg disintegrating tabletIndications: Migraine Take 1 [...] (02/25/2018): Added automatically from request for surgery [id number] Crohn's disease of large int estine without complication ([facility]) 08/09/2017 Knee pain 04/18/2017 Thyroid activity decreased 01/10/2011 Social History Tobacco Use Types Packs/Day Years Used Date Smoking Tobacco: Former Smokeless Tobacco: Never Tobacco Cessation:Counseling Given: Not Answered Alcohol Use Standard Drinks/Week Comments Yes 1 (1 standard drink = 0.6 oz pur e alcohol) Comments Unknown Sex and Gender Information Value Date Recorded Sex Assigned at Not on file 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:53 AM BUSINESS ANALYTICS ANALYST Gender Identity Not on file Sexual Orientation Not on file Last Filed Vital Signs Vital Sign Reading Time Taken Comments Blood Pressure 125/85 05/16/2024 11:30 AM BUSINESS ANALYTICS ANALYST Pulse 78 05/16/2024 11:30 AM BUSINESS ANALYTICS ANALYST Temperature 36.7 ??C (98.1 ??F) 05/16/2024 1 1:30 AM BUSINESS ANALYTICS ANALYST Respiratory Rate 18 05/16/2024 11:3 0 AM BUSINESS ANALYTICS ANALYST Oxygen Saturation 98% 05/16/2024 11: 30 AM BUSINESS ANALYTICS ANALYST Inhaled Oxygen Concentration - - Weight 64.3 kg (141 lb 11.2 oz) 024 11:13 AM BUSINESS ANALYTICS ANALYST Height 156.2 cm (5' 1.5 ) 06/15/2023 9:09 AM BUSINESS ANALYTICS ANALYST Body Mass Index 26.34 06/15/2023 9:09 AM BUSINESS ANALYTICS ANALYST Plan of Treatment Not on file Medical Devices Implanted Type Area Optical Instrument Repairer Device Identifier Shelf Expiration Date Model / Serial / Lot Miro At2-M20 Acutrak 2 3.5-3.6mm 20mm Self Cut Cannulated Variable Pitch - S0 - [id number] Implanted:Qty: 1 on 02/26/2018 by Sebastián Bertrand MD at [facility] Screw Left: Arm [employer] 03/25/2024 AT2-M20 / 0 / [id number] Explanted Type Area Optical Instrument Repairer Device Identifier Shelf Expiration Date Model / Serial / Lot [employer] [id number] Shante .045in 4in [place] Both Ends Orthopedic Wire - [id number] Explanted:Qty: 2 on 02/26/2018 by Sebastián Bertrand MD at [facility] Wire Left: Arm [employer] [id number] / / [place] [phone] [facility] MEDICARE [facility] CHOICE PLUS Member Subscriber Plan / Payer (Ef fective 2017-Present) Name:Rosalva Gaviriaa Relation to Subscriber:Spouse Name:GAVIRIAOSCAR Date of :1963 (Home) Address: [address] [place] [place] [address] Payer ID:[id number] (NAIC) Type:[facility] HMO/PPO Address: [address] [address] [place] [address] [place] [phone] [facility] Care Teams Sole Skiver Relationship Specialty Start Date End Date Tae Mcfarland MD [address] [place] [address] PCP - General 06/18/20
--- OUTSIDE RECORDS SUMMARY | 2024-06-10 07:02 | XMS_ITS | Encounter Summary ---
Author Organization [facility] Healthcare Address [address] [place] [address] Care Team Providers Care Cash Management Clerk Name Role Phone Tae Mcfarland MD Primary Care Provide r Reason for Visit * Reason Onset Date Comments Prior Auth 10/24/2023 Qulipta 60mg Encounter Details Date Type Department Care Team (Late st Contact Info) Description 10/24/2023 Telephone [facility] Medical [facility] Neurology [address] [phone] Peggy Coffman, GRAFFITI CLEANER [address] [address] Prior Auth (Qulipta 60mg ) Social History Tobacco Use Types Packs/Day Years Used Date Smoking Tobacco: Former Smokeless Tobacco: Never Alcohol Use Standard Drinks/Week Comments Yes 1 (1 standard drink = 0.6 oz pur e alcohol) Comments Unknown Sex and Gender Information Value Date Recorded Sex Assigned at Not on file 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:53 AM SUBJECT SCIENTIFIC RESEARCH Gender Identity Not on file Sexual Orientation Not on file documented as of this encounter Miscellaneous Notes * Telephone Encounter - Nely Javed MA - 10/29/2023 8:47 AM CDT KIMBERLYN approved for Qulipta 60mg and faxed to [facility] [id number] IN [place], [place] - [address] , [facility] [address] * Telephone Encounter - Nely Javed MA - 10/24/2023 8:06 AM CDT PA submitted for Qulipta 60mg through cover my meds. Waiting on determination. documented in this encounter Plan of Treatment Not on file documented as of this encounter Visit Diagnoses Not on filedocumented in this encounter Care Teams Cash Management Clerk Relationship Specialty Start Date End Date Tae Mcfarland MD [address] [place], [place] [id number] PCP - General 06/18/20 documented as of this encounter
--- OUTSIDE RECORDS SUMMARY | 2024-06-10 07:02 | XMS_ITS | Encounter Summary ---
Author Organization [facility] Healthcare Address [address] [place] [address] Care Team Providers Care Aircraft Designer Name Role Phone Tae Mcfarland MD Primary Care Provide r Reason for Visit * Reason Comments OP Infusion * Episode Based Medications (Routine) - Authorized Specialty Diagnoses / Procedures Referred By Contac t Referred To Contact Diagnoses Crohn's disease of large intestine without complication (CMS/HCC) (HCC) [facility] [address] [place] [phone] Phone: tel: fax: [facility] [address] [place] [phone] Phone: tel: fax: Referral ID Status Reason Start Date Expiration Date V isits Requested Visits Authorized [id number] Authorized 09/25/2023 10/24/2024 99 99 Encounter Details Date Type Department Care Team (Late st Contact Info) Description 04/18/2024 10:15 AM TANNERY GUMMER Infusion [facility] [address] [place] [phone] Crohn's disease of large intestine without complication (CMS/HCC) (HCC) (Primary Dx) Social History Tobacco Use Types Packs/Day Years Used Date Smoking Tobacco: Former Smokeless Tobacco: Never Alcohol Use Standard Drinks/Week Comments Yes 1 (1 standard drink = 0.6 oz pur e alcohol) Comments Unknown Sex and Gender Information Value Date Recorded Sex Assigned at Not on file 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:53 AM TANNERY GUMMER Gender Identity Not on file Sexual Orientation Not on file documented as of this encounter Last Filed Vital Signs Vital Sign Reading Time Taken Comments Blood Pressure 138/74 04/18/2024 10:03 AM TANNERY GUMMER Pulse 61 04/18/2024 10:03 AM TANNERY GUMMER Temperature 37 ??C (98.6 ??F) 04/18/2024 10:03 AM TANNERY GUMMER Respiratory Rate 20 04/18/2024 10:03 AM TANNERY GUMMER Oxygen Saturation 100% 04/18/2024 10:03 AM TANNERY GUMMER Inhaled Oxygen Concentration - - Weight 64.2 kg (141 lb 9.6 oz) 04/18/2024 10:01 AM TANNERY GUMMER Height - - Body Mass Index 26.32 06/15/2023 9:09 AM TANNERY GUMMER documented in this encounter Progress Notes * Christine Denton RPh - 04/18/2024 10:15 AM CST Pharmacy Note - Biotherapy Dose Rounding Infliximab or infliximab biosimilar has been rounded from 640 mg ( 10 mg/kg) to 600 mg per the MTS policy approved by [facility] Pharmacy and Therapeutics committee. [facility] Pharmacy and Therapeutics committee as approved the following: ?? 10% dose rounding policy for biotherapy agents to the nearest vial size Christine Denton RPh 04/18/24 10:13 AM ERY GUMMER * Nelly Glass RN - 04/18/2024 10:15 AM CST Pt arrived for Remicade infusion. PIV started (+) blood return. Pt denied any recent infection, fever, or ABX use. Pt premedicated with oral tylenol and benadryl and remicade titrated until max rate achieved per [facility] instructions. Pt tolerated infusion well. PIV removed, dressing applied. Pt confirmed upcoming appointment. Pt ambulatory and stable for discharge. ERY GUMMER documented in this encounter Plan of Treatment Not on file documented as of this encounter Visit Diagnoses Diagnosis Crohn's disease of large intestine without complication (CMS/HCC) (HCC)- Primary documented in this encounter Administered Medications Inactive Administered Medications - up to 3 most recent administrations Medication Order MAR Action Action Date Dose Rate Site acetaminophen (TYLENOL) tablet 650 mg 650 mg, oral, Once, On Sun04/18/24 at 1045, For 1 dose, Give 30 minutes prior to infusion for infusion reaction prophylaxis.Indications:Crohn's disease of large intestine without complication (CMS/HCC) (HCC) Given 04/18/2024 10:05 AM TANNERY GUMMER 650 mg diphenhydrAMINE (BENADRYL) tab/cap 25 mg 25 mg, oral, Once, On Sun04/18/24 at 1045, For 1 dose, Give 30 minutes prior to infusion for infusion reaction prophylaxis.Indications:Crohn's disease of large intestine without complication (CMS/HCC) (HCC) Given 04/18/2024 10:05 AM TANNERY GUMMER 25 mg inFLIXimab (REMICADE) 600 mg in sodium chloride 0.9% 250 mL IVPB 600 mg, intravenous, Once, On Sun04/18/24 at 1115, For 1 dose, MAINTENANCE DOSE: Begin 8 [...] mg per the MTS policy approved by [facility] Pharmacy and Therapeutics committee. [facility] Pharmacy and Therapeutics committee as approved the following: ? 10% dose rounding policy for biotherapy agents to the nearest vial size Christine Denton RPh 04/18/24 10:13 AM Use 1.2 micron filter or less, low-sorbing, low protein binding.Indications:Crohn's disease of large intestine without complication (CMS/HCC) (HCC) New Bag 04/18/2024 10:49 AM TANNERY GUMMER 600 mg documented in this encounter Orders Medications Ordered That Kaushal ht Not Have Been Administered Count Last Ordered Date First Ordered Date Carrier Fluids for Secondary Infusion - 0.9% Sodium Chloride 1 04/18/2024 Nursing Count Last Ordered Date First Orde red Date HEIGHT AND WEIGHT 1 04/18/2024 NURSING COMMUNICATION 1 04/18/2024 ONCBCN PROVIDER COMMUNICATION 1 1 VITAL SIGNS INTRA-INFUSION 1 04/18/2024 documented in this encounter Care Teams Aircraft Designer Relationship Specialty Start Date End Date Tae Mcfarland MD [address] [place], [place] [id number] PCP - General 06/18/20 documented as of this encounter
--- OUTSIDE RECORDS SUMMARY | 2024-06-10 07:03 | XMS_ITS | Encounter Summary ---
Author Organization [facility] Healthcare Address [address] [place] [address] Care Team Providers Care Motorcycle Designer Name Role Phone Tae Mcfarland MD Primary Care Provide r Reason for Visit * Reason Comments OP Infusion * Episode Based Medications (Routine) - Closed Specialty Diagnoses / Procedures Referred By Contac t Referred To Contact Diagnoses Crohn's disease of large intestine without complication (CMS/HCC) (HCC) Myles Mahajan, DO [address] [place] [address] Phone: tel: fax: [facility] [address] [place] [phone] Phone: tel: fax: Referral ID Status Reason Start Date Expiration Date Visits Re quested Visits Authorized [id number] Closed 03/23/2022 04/22/2023 99 99 Encounter Details Date Type Department Care Team (Late st Contact Info) Description 10/13/2022 8:00 AM CDT Infusion [facility] [address] [place] [phone] Crohn's disease of large intestine without complication (CMS/HCC) (HCC) (Primary Dx) Social History Tobacco Use Types Packs/Day Years Used Date Smoking Tobacco: Former Smokeless Tobacco: Never Alcohol Use Standard Drinks/Week Comments Yes 1 (1 standard drink = 0.6 oz pur e alcohol) Comments Unknown Sex and Gender Information Value Date Recorded Sex Assigned at Not on file 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:53 AM INTEGRATED CAMPAIGN MANAGER Gender Identity Not on file Sexual Orientation Not on file documented as of this encounter Last Filed Vital Signs Vital Sign Reading Time Taken Comments Blood Pressure 106/67 10/13/2022 8:17 AM CDT Pulse 73 10/13/2022 8:17 AM CDT Temperature 36.1 ??C (96.9 ??F) 10/13/2022 8:17 AM CD T Respiratory Rate 18 10/13/2022 8:17 AM CDT Oxygen Saturation 95% 10/13/2022 8:17 AM CDT Inhaled Oxygen Concentration - - Weight 63.8 kg (140 lb 11.2 oz) 10/13/2022 8:17 AM CDT Height - - Body Mass Index 25.73 05/27/2021 7:34 PM INTEGRATED CAMPAIGN MANAGER documented in this encounter Progress Notes * Kelechi Braswell RP - 10/13/2022 8:00 AM CDT Pharmacy Note - Biotherapy Dose Rounding Infliximab or infliximab biosimilar has been rounded from 640 mg ( 10 mg/kg) to 700 mg per the MTS policy approved by [facility] Pharmacy and Therapeutics committee. [facility] Pharmacy and Therapeutics committee as approved the following: ?? 10% dose rounding policy for biotherapy agents to the nearest vial size Kelechi Braswell RPh 10/13/22 8:20 AM Electronically signed by Kelechi Braswell [facility] at 10/13/2022 8:21 AM CDT documented in this encounter Nursing Notes * Andrea Seay RN - 10/13/2022 8:00 AM CDT Ambulatory to infusion center for Remicade, denies any recent infections, fevers, antibiotic therapy, or colds. TB neg as of 02/22/22. Premeds given 30 minutes prior to infusion. PIV started, positiveblood flow noted. Remicade infused and titrated per protocol without incident. Discharged home in stable condition with follow up appt scheduled. documented in this encounter Plan of Treatment Not on file documented as of this encounter Visit Diagnoses Diagnosis Crohn's disease of large intestine without complication (CMS/HCC) ([facility])- Primary documented in this encounter Administered Medications Inactive Administered Medications - up to 3 most recent administrations Medication Order MAR Action Action Date Dose Rate Site acetaminophen (TYLENOL) tablet 650 mg 650 mg, oral, Once, On Sun10/13/22 at 0900, For 1 dose, Give 30 minutes prior to infusion for infusion reaction prophylaxis.Indications:Crohn's disease of large intestine without complication (CMS/HCC) ([facility]) Given 10/13/2022 8:24 AM CDT 650 mg Carrier Fluids for Secondary Infusion - 0.9% Sodium Chloride 30 mL, intravenous, As needed, For priming tubing and/or flushing, Starting on Sun10/13/22 at 0818, 0-250ml/hr to flush line after IV infusions when no maintenance IV ordered. Infuse 30mL at the same rate as the secondary infusion. Run as primary IV, not intended for KVOIndications:Crohn's disease of large intestine without complication (CMS/HCC) ([facility]) Given 10/13/2022 8:55 AM CDT 30 mL diphenhydrAMINE (BENADRYL) tab/cap 25 mg 25 mg, oral, Once, On Sun10/13/22 at 0900, For 1 dose, Give 30 minutes prior to infusion for infusion reaction prophylaxis.Indications:Crohn's disease of large intestine without complication (CMS/HCC) ([facility]) Given 10/13/2022 8:24 AM CDT 25 mg inFLIXimab (REMICADE) 700 mg in sodium chloride 0.9% 250 mL IVPB 700 mg, intravenous, Once, On Sun10/13/22 at 0930, For 1 dose, MAINTENANCE DOSE: Begin 4 [...] until infusion is completed FOR REACTIONS-STOP INFUSION. Infliximab or infliximab biosimilar has been rounded from 640 mg ( 10 mg/kg) to 700 mg per the MTS policy approved by [facility] Pharmacy and Therapeutics committee. Use 1.2 micron filter or less, low-sorbing, low protein binding.Indications:Crohn's disease of large intestine without complication (CMS/HCC) (HCC) New Bag 10/13/2022 8:55 AM CDT 700 mg documented in this encounter Orders Nursing Count Last Ordered Date First Orde red Date HEIGHT AND WEIGHT 1 10/13/2022 NURSING COMMUNICATION 1 10/13/2022 ONCBCN PROVIDER COMMUNICATION 1 1 3 VITAL SIGNS INTRA-INFUSION 1 10/13/2022 documented in this encounter Care Teams Motorcycle Designer Relationship Specialty Start Date End Date Tae Mcfarland MD [address] [place] [address] PCP - General 06/18/20 documented as of this encounter
--- OUTSIDE RECORDS SUMMARY | 2024-06-10 07:03 | XMS_ITS | Encounter Summary ---
Author Organization [facility] Address [address] [place] [address] Care Team Providers Care Dinkey Operator Name Role Phone Tae Mcfarland MD Primary Care Provide r Reason for Referral * MRI/CAT/PET Scan (Routine) - Closed Specialty Diagnoses / Procedures Referred By Phong luo Referred To Contact Radiology Diagnoses Migraine without status migrainosus, not intractable, unspecified migraine type Procedures MRI Brain WO Contrast Peggy Coffman NP Phone: tel: fax: [address] [phone] Referral ID Status Reason Start Date Expiration Date Visits Re quested Visits Authorized [id number] Closed 10/30/2022 01/04/2023 1 1 Reason for Visit * MRI/CAT/PET Scan (Routine) - Closed Specialty Diagnoses / Procedures Referred By Phong luo Referred To Contact Radiology Diagnoses Migraine without status migrainosus, not intractable, unspecified migraine type Procedures MRI Brain WO Contrast Peggy Coffman NP Phone: tel: fax: [address] [phone] Referral ID Status Reason Start Date Expiration Date Visits Re quested Visits Authorized [id number] Closed 10/30/2022 01/04/2023 1 1 Encounter Details Date Type Department Care Team (Latest Contact Info) Description 11/28/2022 8:12 AM CDT - 11/28/2022 11:59 PM CDT Hospital Encounter [address] [address] Migraine without status migrainosus, not intractable, unspecified migraine type Discharge Disposition: Discharge to home or self care Social History Tobacco Use Types Packs/Day Years Used Date Smoking Tobacco: Former Smokeless Tobacco: Never Alcohol Use Standard Drinks/Week Comments Yes 1 (1 standard drink = 0.6 oz pur e alcohol) Comments Unknown Sex and Gender Information Value Date Recorded Sex Assigned at Not on file 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 Gender Identity Not on file Sexual Orientation [...] 1 tablet (5 mg total) by mouth hazardous materials handler before breakfast amLODIPine (NORVASC) 5 mg tablet [...] by mouth 3 (three) times a day hydroCHLOROthiazide (HYDRODIURIL) 25 mg tablet Take 1 tablet (25 mg total) by mouth hazardous materials handler before breakfast hydroCHLOROthiazide (HYDRODIURIL) 25 mg tablet Take 1 tablet (25 mg total) by mouth daily ibuprofen, bulk, 100 % powder Take by mouth levothyroxine (SYNTHROID) 100 mcg tablet Take 1 tablet (100 mcg total) by mouth daily 10/02/2022 levothyroxine sodium (TIROSINT) 50 mcg capsule 125 mcg hazardous materials handler before breakfast. lisinopriL (PRINIVIL,ZESTRIL) 40 mg tablet Take 1 tablet (40 mg total) by mouth daily losartan (COZAAR) 50 mg tablet Take 50 mg by mouth hazardous materials handler before breakfast. meloxicam (MOBIC) 7.5 mg tablet [...] (50 mg total) by mouth nightly 10/24/2022 rizatriptan STEAM CLEANING MACHINE OPERATOR (MAXALT-STEAM CLEANING MACHINE OPERATOR) 10 mg disintegrating tabletIndications:Mi graine Take 1 tablet (10 mg total) by mouth once as needed for migraine May repeat in 2 hours if unresolved. Do not exceed 30 mg in 24 hours. 9 tablet 3 11/27/2022 sertraline (ZOLOFT) 50 mg tablet Take 1 [...] nightly as needed zolpidem (AMBIEN) 5 mg tabletIndications:Sl eep-Onset Insomnia Take 10 mg by mouth nightly as needed for sleep. atogepant (Qulipta) 60 mg tablet Take 60 mg by mouth daily 30 tablet 11 10/30/2022 4 ubrogepant (Ubrelvy) 100 mg tablet Take 1 tablet (100 mg total) by mouth once as needed for migraine May repeat dose once in 2 hours if no relief. Do not exceed 2 doses in 24 hours. 10 tablet 11 10/30/2022 4 documented as of this encounter Discharge Disposition Disposition Code Departure Means Destination Discharge to home or self care documented in this encounter Miscellaneous Notes * Result Encounter Note - Peggy Coffman NP - 11/28/2022 11:59 PM CDT Please let Karon know there is a small abnormal hyperintensity, which could be a meningioma, which is a benign tumor in the area surrounding the brain. However, I would like to repeat her brain MRI with contrast to further look at that this. Will also add a cervical MRI to look at an abnormal area at the C3 vertebral body in her neck. documented in this encounter Plan of Treatment Not on file documented as of this encounter Procedures Procedure Name Priority Date/Time Associated Diagnosis Comments MRI BRAIN WO CONTRAST Schedule Routine, Read Routine (OP Routine) 11/28/2022 9:34 AM CDT Migraine without status migrainosus, not intractable, unspecified migraine type documented in this encounter Results * MRI Brain WO Contrast (11/28/2022 9:34 AM CDT) Anatomical Region Laterality Modality Head and Neck N/A Magnetic Resonan ce 11/28/2022 9:56 AM CDT Narrative 11/28/2022 10:16 AM CDT EXAM DESCRIPTION: ?? MRI BRAIN WO CONTRAST REASON FOR STUDY: ?? Headache, new or worsening (Age >= 50y) ?? Fell and struck head in May 2021, right orbital headaches radiating to the back of the skull since the fall. No surgery. ? TECHNIQUE: Multiplanar imaging includes non-contrasted T1, T2, FLAIR, and diffusion with ADC map sequences. Additional sequence(s) sensitive to blood products. Images stored on PACS. ? COMPARISON: ?? 05/27/[address] ??[address] FINDINGS: CEREBRUM: ?? No hemorrhage, edema, or mass effect. ? WHITE MATTER: ?? Normal. POSTERIOR FOSSA: ?? Brainstem and cerebellum appear unremarkable. DIFFUSION IMAGING: ?? No evidence of acute infarction. EXTRAAXIAL SPACES: ?? There is a 6 mm well-circumscribed rounded focus of T2/FLAIR signal hyperintensity with associated diffusion restriction along the right tentorium (series 303, image 8 and series 201, image 14.) ??this is favored to be a small extra-axial mass, likely a meningioma. ??This could be confirmed with follow-up MRI with postcontrast only sequences. BRAIN VOLUME: ?? Within normal limits for age. PITUITARY: ?? Unremarkable. VASCULATURE: ?? No flow disturbance identified. ORBITS: ?? No masses. Globes normal. PARANASAL SINUSES AND MASTOIDS: ?? Small right mastoid effusion. ??Partial opacification of the left ethmoid air cells. OTHER: ?? At the C3 vertebral body on image 13 of series 201 there is a 4 mm rounded circumscribed focus, which demonstrates T1 signal that is not definitively hypointense to skeletal muscle or disc. ??The questioned areas of lucency on CT from 05/27/2021 do not definitively demonstrate marrow replacing signal on this MRI at C2 and C3. ??The other levels are not visualized. IMPRESSION: No acute intracranial findings. 6 mm extra-axial lesion along the right tentorium, possibly a meningioma. ?? Recommend further evaluation with brain MRI with postcontrast only sequences. THIS IS AN ELECTRONICALLY VERIFIED FINAL REPORT 11/28/2022 10:16 AM - Electronically signed by ??Koko Floyd M.D. MZ D: ??11/28/2022 10:16 AM T: Report ID: [id number] Reading Location: ??[id number] Procedure Note Koko Floyd MD - 11/28/2022 EXAM DESCRIPTION: MRI BRAIN WO CONTRAST REASON FOR STUDY: Headache, new or worsening (Age >= 50y) Fell and struck head in May 2021, right orbital headaches radiatingto the back of the skull since the fall. No surgery. TECHNIQUE: Multiplanar imaging includes non-contrasted T1, T2, FLAIR, and diffusion with ADC map sequences. Additional sequence(s) sensitive [place]. Images stored on PACS. COMPARISON: 05/27/[address] FINDINGS: CEREBRUM: No hemorrhage, edema, or mass effect. WHITE MATTER: Normal. POSTERIOR FOSSA: Brainstem and cerebellum appear unremarkable. DIFFUSION IMAGING: No evidence of acute infarction. EXTRAAXIAL SPACES: There is a 6 mm well-circumscribed rounded focus of T2/FLAIR signal hyperintensity with associated diffusion restriction alongthe right tentorium (series 303, image 8 and series 201, image 14.) this is favored to be a small extra-axial mass, likely a meningioma. This couldbe confirmed with follow-up MRI with postcontrast only sequences. BRAIN VOLUME: Within normal limits for age. PITUITARY: Unremarkable. VASCULATURE: No flow disturbance identified. ORBITS: No masses. Globes normal. PARANASAL SINUSES AND MASTOIDS: Small right mastoid effusion. Partial opacification of the left ethmoid air cells. OTHER: At the C3 vertebral body on image 13 of series 201 there is a 4mm rounded circumscribed focus, which demonstrates T1 signal that is not definitively hypointense to skeletal muscle or disc. The questioned areasof lucency on CT from 05/27/2021 do not definitively demonstrate marrowreplacing signal on this MRI at C2 and C3. The other levels are not visualized. IMPRESSION: No acute intracranial findings. 6 mm extra-axial lesion along the right tentorium, possibly a meningioma. Recommend further evaluation with brain MRI with postcontrast onlysequences. THIS IS AN ELECTRONICALLY VERIFIED FINAL REPORT 11/28/2022 10:16 AM - Electronically signed by Koko VilchisD. MZ T: Report ID: [id number] Reading Location: [place] [address] Peggy Coffman ACCOUNTING CLERK IMG MRI PROCEDURES Final R esult documented in this encounter Visit Diagnoses Diagnosis Migraine without status migrainosus, not intractable, unspecified migraine type documented in this encounter Care Teams Dinkey Operator Relationship Specialty Start Date End Date Tae Mcfarland MD [address] [place] [address] PCP - General 06/18/20 documented as of this encounter
--- OUTSIDE RECORDS SUMMARY | 2024-06-10 07:03 | XMS_ITS | Encounter Summary ---
Author Organization [facility] Healthcare Address [address] [place] [address] Care Team Providers Care Protective Signal Operator Name Role Phone Tae Mcfarland MD Primary Care Provide r Reason for Visit * Reason Comments OP Infusion * Episode Based Medications (Routine) - Closed Specialty Diagnoses / Procedures Referred By Contac t Referred To Contact Diagnoses Crohn's disease of large intestine without complication (CMS/HCC) (HCC) Myles Mahajan, DO [address] [place] [place] [address] Phone: tel: fax: [facility] [address] [place] [phone] Phone: tel: fax: Referral ID Status Reason Start Date Expiration Date Visits Re quested Visits Authorized [id number] Closed 10/04/2022 11/03/2023 99 99 Encounter Details Date Type Department Care Team (Late st Contact Info) Description 11/10/2022 8:00 AM CDT Infusion [facility] [address] [place] [phone] Crohn's disease of large intestine without complication (CMS/HCC) (HCC) (Primary Dx) Social History Tobacco Use Types Packs/Day Years Used Date Smoking Tobacco: Former Smokeless Tobacco: Never Alcohol Use Standard Drinks/Week Comments Yes 1 (1 standard drink = 0.6 oz pur e alcohol) Comments Unknown Sex and Gender Information Value Date Recorded Sex Assigned at Not on file 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 Gender Identity Not on file Sexual Orientation Not on file documented as of this encounter Last Filed Vital Signs Vital Sign Reading Time Taken Comments Blood Pressure 110/64 11/10/2022 8:01 AM CDT Pulse 64 11/10/2022 8:01 AM CDT Temperature 36.9 ??C (98.5 ??F) 11/10/2022 8:01 AM CD T Respiratory Rate 20 11/10/2022 8:01 AM CDT Oxygen Saturation 100% 11/10/2022 8:01 AM CDT Inhaled Oxygen Concentration - - Weight 63 kg (138 lb 12.8 oz) 11/10/2022 8:01 AM CDT Height - - Body Mass Index 25.39 10/30/2022 10:09 AM CDT documented in this encounter Progress Notes * Kelechi Braswell RPh - 11/10/2022 8:00 AM CDT Pharmacy Note - Biotherapy Dose Rounding Infliximab or infliximab biosimilar has been rounded from 630 mg ( 10 mg/kg) to 600 mg per the MTS policy approved by [facility] Pharmacy and Therapeutics committee. [facility] Pharmacy and Therapeutics committee as approved the following: ?? 10% dose rounding policy for biotherapy agents to the nearest vial size Kelechi Braswell RPh 11/10/22 8:06 AM documented in this encounter Nursing Notes * Stacie Wu RN - 11/10/2022 8:00 AM CDT TB negative 02/22/22. Deny's any recent fevers/infections and no ABX use. Feeling well. No issues voiced. IV placed to left arm, premeds given, 30 min wait being done. Drug well tolerated. Iv flushedand d/c to home RTC 12/08 documented in this encounter Plan of Treatment Not on file documented as of this encounter Visit Diagnoses Diagnosis Crohn's disease of large intestine without complication (CMS/HCC) ([facility])- Primary documented in this encounter Administered Medications Inactive Administered Medications - up to 3 most recent administrations Medication Order MAR Action Action Date Dose Rate Site acetaminophen (TYLENOL) tablet 650 mg 650 mg, oral, Once, On Sun11/10/22 at 0845, For 1 dose, Give 30 minutes prior to infusion for infusion reaction prophylaxis.Indications:Crohn's disease of large intestine without complication (CMS/HCC) ([facility]) Given 11/10/2022 8:10 AM CDT 650 mg Carrier Fluids for Secondary Infusion - 0.9% Sodium Chloride 30 mL, intravenous, As needed, For priming tubing and/or flushing, Starting on Sun11/10/22 at 0802, 0-250ml/hr to flush line after IV infusions when no maintenance IV ordered. Infuse 30mL at the same rate as the secondary infusion. Run as primary IV, not intended for KVOIndications:Crohn's disease of large intestine without complication (CMS/HCC) ([facility]) Given 11/10/2022 8:11 AM CDT 30 mL diphenhydrAMINE (BENADRYL) tab/cap 25 mg 25 mg, oral, Once, On Sun11/10/22 at 0845, For 1 dose, Give 30 minutes prior to infusion for infusion reaction prophylaxis.Indications:Crohn's disease of large intestine without complication (CMS/HCC) ([facility]) Given 11/10/2022 8:10 AM CDT 25 mg inFLIXimab (REMICADE) 600 mg in sodium chloride 0.9% 250 mL IVPB 600 mg, intravenous, Once, On Sun11/10/22 at 0915, For 1 dose, MAINTENANCE DOSE: Begin 4 [...] mg per the MTS policy approved by [facility] Pharmacy and Therapeutics committee. Use 1.2 micron filter or less, low-sorbing, low protein binding.Indications:Crohn's disease of large intestine without complication (CMS/HCC) (HCC) New Bag 11/10/2022 8:40 AM CDT 600 mg documented in this encounter Orders Nursing Count Last Ordered Date First Orde red Date HEIGHT AND WEIGHT 1 11/10/2022 NURSING COMMUNICATION 1 11/10/2022 ONCBCN PROVIDER COMMUNICATION 1 1 3 VITAL SIGNS INTRA-INFUSION 1 11/10/2022 documented in this encounter Care Teams Protective Signal Operator Relationship Specialty Start Date End Date Tae Mcfarland MD [address] [place] [address] PCP - General 06/18/20 documented as of this encounter
--- OUTSIDE RECORDS SUMMARY | 2024-06-10 07:03 | XMS_ITS | Encounter Summary ---
Author Organization [facility] Healthcare Address [address] [place] [address] Care Team Providers Care Vocal Performer Name Role Phone Tae Mcfarland MD Primary Care Provide r Reason for Visit * Reason Comments OP Infusion * Episode Based Medications (Routine) - Closed Specialty Diagnoses / Procedures Referred By Contac t Referred To Contact Diagnoses Crohn's disease of large intestine without complication (CMS/HCC) (HCC) Myles Mahajan, DO [address] [place] [address] Phone: tel: fax: [facility] [address] [place] [phone] Phone: tel: fax: Referral ID Status Reason Start Date Expiration Date Visits Re quested Visits Authorized [id number] Closed 10/04/2022 11/03/2023 99 99 Encounter Details Date Type Department Care Team (Late st Contact Info) Description 03/30/2023 8:00 AM CDT Infusion [facility] [address] [place] [phone] Crohn's disease of large intestine without complication (CMS/HCC) (HCC) (Primary Dx) Social History Tobacco Use Types Packs/Day Years Used Date Smoking Tobacco: Former Smokeless Tobacco: Never Alcohol Use Standard Drinks/Week Comments Yes 1 (1 standard drink = 0.6 oz pur e alcohol) Comments Unknown Sex and Gender Information Value Date Recorded Sex Assigned at Not on file 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 Gender Identity Not on file Sexual Orientation Not on file documented as of this encounter Last Filed Vital Signs Vital Sign Reading Time Taken Comments Blood Pressure 96/60 03/30/2023 8:03 AM CDT Pulse 71 03/30/2023 8:03 AM CDT Temperature 36.1 ??C (97 ??F) 03/30/2023 8:03 AM CDT Respiratory Rate 18 03/30/2023 8:03 AM CDT Oxygen Saturation 100% 03/30/2023 8:03 AM CDT Inhaled Oxygen Concentration - - Weight 58.1 kg (128 lb 1.6 oz) 03/30/2023 8:03 A M CDT Height - - Body Mass Index 23.43 10/30/2022 10:09 AM CDT documented in this encounter Progress Notes * Marian Vera RPh - 03/30/2023 8:00 AM CDT Pharmacy Note - Biotherapy Dose Rounding Infliximab or infliximab biosimilar has been rounded from 580 mg ( 10 mg/kg) to 600 mg per the MTS policy approved by [facility] Pharmacy and Therapeutics committee. [facility] Pharmacy and Therapeutics committee as approved the following: ?? 10% dose rounding policy for biotherapy agents to the nearest vial size Marian Vera RPh 03/30/23 8:16 AM documented in this encounter Nursing Notes * Abbi Chi RN - 03/30/2023 8:00 AM CDT Pt arrives for Remicade infusion. Pt denies any new needs or concerns at this time. Pt denies any fevers, infection, or abx use. TB expires 02/03/2024. PIV placed in left arm, (+) blood return and flushed easily. Premeds given. Pt tolerated infusion well, titrated per order set. Pt has her next appointment scheduled. PIV de accessed and pressure dressing applied. D/C ambulatory in stable condition. documented in [...] 650 mg 650 mg, oral, Once, On Sun03/30/23 at 0845, For 1 dose, Give 30 minutes prior to infusion for infusion reaction prophylaxis.Indications:Crohn's disease of large intestine without complication (CMS/HCC) (HCC) Given 03/30/2023 8:13 AM CDT 650 mg Carrier Fluids for Secondary Infusion - 0.9% Sodium Chloride 30 mL, intravenous, As needed, For priming tubing and/or flushing, Starting on Sun03/30/23 at 0811, 0-250ml/hr to flush line after IV infusions when no maintenance IV ordered. Infuse 30mL at the same rate as the secondary infusion. Run as primary IV, not intended for KVOIndications:Crohn's disease of large intestine without complication (CMS/HCC) (HCC) Given 03/30/2023 8:14 AM CDT 30 mL diphenhydrAMINE (BENADRYL) tab/cap 25 mg 25 mg, oral, Once, On Sun03/30/23 at 0845, For 1 dose, Give 30 minutes prior to infusion for infusion reaction prophylaxis.Indications:Crohn's disease of large intestine without complication (CMS/HCC) (HCC) Given 03/30/2023 8:13 AM CDT 25 mg inFLIXimab (REMICADE) 600 mg in sodium chloride 0.9% 250 mL IVPB 600 mg, intravenous, Once, On Sun03/30/23 at 0915, For 1 dose, MAINTENANCE DOSE: [...] intestine without complication (CMS/HCC) (HCC) New Bag 03/30/2023 8:49 AM CDT 600 mg documented in this encounter Orders Nursing Count Last Ordered Date First Orde red Date HEIGHT AND WEIGHT 1 03/30/2023 NURSING COMMUNICATION 1 03/30/2023 ONCBCN PROVIDER COMMUNICATION 1 1 3 VITAL SIGNS INTRA-INFUSION 1 03/30/2023 documented in this encounter Care Teams Vocal Performer Relationship Specialty Start Date End Date aTe Mcfarland MD [address] [place] [address] PCP - General 06/18/20 documented as of this encounter
--- OUTSIDE RECORDS SUMMARY | 2024-06-10 07:03 | XMS_ITS | Encounter Summary ---
Author Organization [facility] Healthcare Address [address] [place] [address] Care Team Providers Care Fashion Adviser Name Role Phone Tae Mcfarland MD Primary Care Provide r Reason for Visit * Reason Comments OP Infusion * Episode Based Medications (Routine) - Closed Specialty Diagnoses / Procedures Referred By Contac t Referred To Contact Diagnoses Crohn's disease of large intestine without complication (CMS/HCC) (HCC) Myles Mahajan, DO [address] [place] [address] Phone: tel: fax: [facility] [address] [place] [phone] Phone: tel: fax: Referral ID Status Reason Start Date Expiration Date Visits Re quested Visits Authorized [id number] Closed 03/23/2022 04/22/2023 99 99 Encounter Details Date Type Department Care Team (Late st Contact Info) Description 09/15/2022 8:30 AM CDT Infusion 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 Gender Identity Not on file Sexual Orientation Not on file documented as of this encounter Last Filed Vital Signs Vital Sign Reading Time Taken Comments Blood Pressure 104/67 09/15/2022 8:09 AM CDT Pulse 71 09/15/2022 8:09 AM CDT Temperature 36.4 ??C (97.5 ??F) 09/15/2022 8:09 AM CD T Respiratory Rate 20 09/15/2022 8:09 AM CDT Oxygen Saturation 100% 09/15/2022 8:09 AM CDT Inhaled Oxygen Concentration - - Weight 64.4 kg (142 lb) 09/15/2022 8:09 AM CDT Height - - Body Mass Index 25.97 05/27/2021 7:34 PM DESIGN EDITOR documented in this encounter Progress Notes * Christine Denton RPh - 09/15/2022 8:30 AM CDT Pharmacy Note - Biotherapy Dose Rounding Infliximab or infliximab biosimilar has been rounded from 640 mg ( 10 mg/kg) to 700 mg per the MTS policy approved by [facility] Pharmacy and Therapeutics committee. [facility] Pharmacy and Therapeutics committee as approved the following: ?? 10% dose rounding policy for biotherapy agents to the nearest vial size Christine Denton RPh 09/15/22 8:17 AM documented in this encounter Nursing Notes * Stacie Wu RN - 09/15/2022 8:30 AM CDT RTC 5/ deny's any recent infection/fevers. Last TB 12/23/21 negative. IV placed to left arm. Premeds given and waited 30 mins. Drug well tolerated and titrated per ordered. IV d/c and d/c to home. Sent Naty in basket regard auth expiring 09/19/22 documented in this encounter Plan of Treatment Not on file documented as of this encounter Visit Diagnoses Diagnosis Crohn's disease of large intestine without complication (CMS/HCC) ([facility])- Primary documented in this encounter Administered Medications Inactive Administered Medications - up to 3 most recent administrations Medication Order MAR Action Action Date Dose Rate Site acetaminophen (TYLENOL) tablet 650 mg 650 mg, oral, Once, On Sun09/15/22 at 0845, For 1 dose, Give 30 minutes prior to infusion for infusion reaction prophylaxis.Indications:Crohn's disease of large intestine without complication (CMS/HCC) ([facility]) Given 09/15/2022 8:22 AM CDT 650 mg Carrier Fluids for Secondary Infusion - 0.9% Sodium Chloride 30 mL, intravenous, As needed, For priming tubing and/or flushing, Starting on Sun09/15/22 at 0813, 0-250ml/hr to flush line after IV infusions when no maintenance IV ordered. Infuse 30mL at the same rate as the secondary infusion. Run as primary IV, not intended for KVOIndications:Crohn's disease of large intestine without complication (CMS/HCC) ([facility]) Given 09/15/2022 8:22 AM CDT 30 mL diphenhydrAMINE (BENADRYL) tab/cap 25 mg 25 mg, oral, Once, On Sun09/15/22 at 0845, For 1 dose, Give 30 minutes prior to infusion for infusion reaction prophylaxis.Indications:Crohn's disease of large intestine without complication (CMS/HCC) ([facility]) Given 09/15/2022 8:22 AM CDT 25 mg inFLIXimab (REMICADE) 700 mg in sodium chloride 0.9% 250 mL IVPB 700 mg, intravenous, Once, On Sun09/15/22 at 0915, For 1 dose, MAINTENANCE DOSE: [...] mg per the MTS policy approved by [facility] Pharmacy and Therapeutics committee. [facility] Pharmacy and Therapeutics committee as approved the following: ? 10% dose rounding policy for biotherapy agents to the nearest vial size Christine Denton [facility] 09/15/22 8:17 AM Use 1.2 micron filter or less, low-sorbing, low protein binding.Indications:Crohn's disease of large intestine without complication (CMS/HCC) (HCC) New Bag 09/15/2022 8:57 AM CDT 700 mg documented in this encounter Orders Nursing Count Last Ordered Date First Orde red Date HEIGHT AND WEIGHT 1 09/15/2022 NURSING COMMUNICATION 1 09/15/2022 ONCBCN PROVIDER COMMUNICATION 1 1 VITAL SIGNS INTRA-INFUSION 1 09/15/2022 documented in this encounter Care Teams Fashion Adviser Relationship Specialty Start Date End Date Tae Mcfarland MD [address] [place] [address] PCP - General 06/18/20 documented as of this encounter
--- OUTSIDE RECORDS SUMMARY | 2024-06-10 07:03 | XMS_ITS | Encounter Summary ---
Author Organization [facility] Healthcare Address [address] [place] [address] Care Team Providers Care Leaf Stripper Name Role Phone Tae Mcfarland MD Primary Care Provide r Reason for Visit * Reason Comments OP Infusion * Episode Based Medications (Routine) - Closed Specialty Diagnoses / Procedures Referred By Contac t Referred To Contact Diagnoses Crohn's disease of large intestine without complication (CMS/HCC) (HCC) Myles Mahajan, DO [address] [address] Phone: tel: fax: [facility] [address] [place] [phone] Phone: tel: fax: Referral ID Status Reason Start Date Expiration Date Visits Re quested Visits Authorized [id number] Closed 10/04/2022 11/03/2023 99 99 Encounter Details Date Type Department Care Team (Late st Contact Info) Description 07/13/2023 9:00 AM EXCEPTIONAL CHILDREN'S TEACHER Infusion [facility] [address] [place] [phone] Crohn's disease of large intestine without complication (CMS/HCC) (HCC) (Primary Dx) Social History Tobacco Use Types Packs/Day Years Used Date Smoking Tobacco: Former Smokeless Tobacco: Never Alcohol Use Standard Drinks/Week Comments Yes 1 (1 standard drink = 0.6 oz pur e alcohol) Comments Unknown Sex and Gender Information Value Date Recorded Sex Assigned at Not on file 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:53 AM EXCEPTIONAL CHILDREN'S TEACHER Gender Identity Not on file Sexual Orientation Not on file documented as of this encounter Last Filed Vital Signs Vital Sign Reading Time Taken Comments Blood Pressure 140/85 07/13/2023 9:20 AM EXCEPTIONAL CHILDREN'S TEACHER Pulse 87 07/13/2023 9:20 AM EXCEPTIONAL CHILDREN'S TEACHER Temperature 36.1 ??C (97 ??F) 07/13/2023 9:20 AM EXCEPTIONAL CHILDREN'S TEACHER Respiratory Rate - - Oxygen Saturation 100% 07/13/2023 9:20 AM EXCEPTIONAL CHILDREN'S TEACHER Inhaled Oxygen Concentration - - Weight 59.3 kg (130 lb 12.8 oz) 07/13/2023 9:03 AM EXCEPTIONAL CHILDREN'S TEACHER Height - - Body Mass Index 24.31 06/15/2023 9:09 AM EXCEPTIONAL CHILDREN'S TEACHER documented in this encounter Progress Notes * Christine Denton RP - 07/13/2023 9:00 AM CST Pharmacy Note - Biotherapy Dose Rounding Infliximab or infliximab biosimilar has been rounded from 580 mg ( 10 mg/kg) to 600 mg per the MTS policy approved by [facility] Pharmacy and Therapeutics committee. [facility] Pharmacy and Therapeutics committee as approved the following: ?? 10% dose rounding policy for biotherapy agents to the nearest vial size Christine Denton RPh 07/13/23 9:10 AM PTIONAL CHILDREN'S TEACHER documented in this encounter Nursing Notes * Erlinda Newell RN - 07/13/2023 9:00 AM CST Arrival for Remicade infusion. Denies any recent fevers or infections. Premeds given. PIV started with + blood return and flushing well. Premeds given. Remicade titrated per protocol. Tolerated well.PIV removed. D/C'd ambulatory. PTIONAL CHILDREN'S TEACHER documented in this encounter Plan of Treatment Not on file documented as of this encounter Visit Diagnoses Diagnosis Crohn's disease of large intestine without complication (CMS/HCC) (HCC)- Primary documented in this encounter Administered Medications Inactive Administered Medications - up to 3 most recent administrations Medication Order MAR Action Action Date Dose Rate Site acetaminophen (TYLENOL) tablet 650 mg 650 mg, oral, Once, On Sun07/13/23 at 0945, For 1 dose, Give 30 minutes prior to infusion for infusion reaction prophylaxis.Indications:Crohn's disease of large intestine without complication (CMS/HCC) ([facility]) Given 07/13/2023 9:08 AM EXCEPTIONAL CHILDREN'S TEACHER 650 mg Carrier Fluids for Secondary Infusion - 0.9% Sodium Chloride 30 mL, intravenous, As needed, For priming tubing and/or flushing, Starting on Sun07/13/23 at 0903, 0-250ml/hr to flush line after IV infusions when no maintenance IV ordered. Infuse 30mL at the same rate as the secondary infusion. Run as primary IV, not intended for KVOIndications:Crohn's disease of large intestine without complication (CMS/HCC) ([facility]) Given 07/13/2023 9:39 AM EXCEPTIONAL CHILDREN'S TEACHER 30 mL diphenhydrAMINE (BENADRYL) tab/cap 25 mg 25 mg, oral, Once, On Sun07/13/23 at 0945, For 1 dose, Give 30 minutes prior to infusion for infusion reaction prophylaxis.Indications:Crohn's disease of large intestine without complication (CMS/HCC) ([facility]) Given 07/13/2023 9:09 AM EXCEPTIONAL CHILDREN'S TEACHER 25 mg inFLIXimab (REMICADE) 600 mg in sodium chloride 0.9% 250 mL IVPB 600 mg, intravenous, Once, On Sun07/13/23 at 1015, For 1 dose, MAINTENANCE DOSE: [...] mg per the MTS policy approved by [facility] Pharmacy and Therapeutics committee. [facility] Pharmacy and Therapeutics committee as approved the following: ? 10% dose rounding policy for biotherapy agents to the nearest vial size Christine Gregory Denton, [facility] 07/13/23 9:10 AM Use 1.2 micron filter or less, low-sorbing, low protein binding.Indications:Crohn's disease of large intestine without complication (CMS/HCC) (HCC) New Bag 07/13/2023 9:40 AM EXCEPTIONAL CHILDREN'S TEACHER 600 mg documented in this encounter Care Teams Leaf Stripper Relationship Specialty Start Date End Date Tae Mcfarland MD [address] [place] [address] PCP - General 06/18/20 documented as of this encounter
--- OUTSIDE RECORDS SUMMARY | 2024-06-10 07:03 | XMS_ITS | Encounter Summary ---
Author Organization [facility] Healthcare Address [address] [place] [address] Care Team Providers Care Student Career Development Specialist Name Role Phone Tae Mcfarland MD Primary Care Provide r Reason for Visit * Reason Comments OP Infusion * Episode Based Medications (Routine) - Closed Specialty Diagnoses / Procedures Referred By Contac t Referred To Contact Diagnoses Crohn's disease of large intestine without complication (CMS/HCC) (HCC) Myles Mahajan, DO [address] [address] Phone: tel: fax: [facility] [address] [place] [phone] Phone: tel: fax: Referral ID Status Reason Start Date Expiration Date Visits Re quested Visits Authorized [id number] Closed 10/04/2022 11/03/2023 99 99 Encounter Details Date Type Department Care Team (Late st Contact Info) Description 08/10/2023 10:00 AM AUTOMOTIVE PARTS ADVISOR Infusion [facility] [address] [place] [phone] Crohn's disease of large intestine without complication (CMS/HCC) (HCC) (Primary Dx) Social History Tobacco Use Types Packs/Day Years Used Date Smoking Tobacco: Former Smokeless Tobacco: Never Alcohol Use Standard Drinks/Week Comments Yes 1 (1 standard drink = 0.6 oz pur e alcohol) Comments Unknown Sex and Gender Information Value Date Recorded Sex Assigned at Not on file 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:53 AM AUTOMOTIVE PARTS ADVISOR Gender Identity Not on file Sexual Orientation Not on file documented as of this encounter Last Filed Vital Signs Vital Sign Reading Time Taken Comments Blood Pressure 124/76 08/10/2023 9:46 AM AUTOMOTIVE PARTS ADVISOR Pulse 72 08/10/2023 9:46 AM AUTOMOTIVE PARTS ADVISOR Temperature 36.6 ??C (97.9 ??F) 08/10/2023 9:46 AM CS T Respiratory Rate 18 08/10/2023 9:46 AM AUTOMOTIVE PARTS ADVISOR Oxygen Saturation 99% 08/10/2023 9:46 AM AUTOMOTIVE PARTS ADVISOR Inhaled Oxygen Concentration - - Weight 59 kg (130 lb 1.6 oz) 08/10/2023 9:46 AM AUTOMOTIVE PARTS ADVISOR Height - - Body Mass Index 24.18 06/15/2023 9:09 AM AUTOMOTIVE PARTS ADVISOR documented in this encounter Progress Notes * Christine Denton RPh - 08/10/2023 10:00 AM CST Pharmacy Note - Biotherapy Dose Rounding Infliximab or infliximab biosimilar has been rounded from 590 mg (5mg/kg) to 600 mg per the MTS policy approved by [facility] Pharmacy and Therapeutics committee. [facility] Pharmacy and Therapeutics committee as approved the following: ?? 10% dose rounding policy for biotherapy agents to the nearest vial size Christine Denton RPh 08/10/23 9:51 AM MOTIVE PARTS ADVISOR documented in this encounter Nursing Notes * Heaven Heard RN - 08/10/2023 10:00 AM CST Arrives for Q 4 week remicade infusion. Message sent to Naty KELLY re: orders exp 09/25/13. TB current, patient denies s/s of infection. Pre medications given and infusion titrated per order parameters.Infusion completed and tolerated, PIV removed. Copy of schedule provided to patient. Discharge ambulatory in stable condition. MOTIVE PARTS ADVISOR documented in this encounter Plan of Treatment Not on file documented as of this encounter Visit Diagnoses Diagnosis Crohn's disease of large intestine without complication (CMS/HCC) (HCC)- Primary documented in this encounter Administered Medications Inactive Administered Medications - up to 3 most recent administrations Medication Order MAR Action Action Date Dose Rate Site acetaminophen (TYLENOL) tablet 650 mg 650 mg, oral, Once, On Sun08/10/23 at 1030, For 1 dose, Give 30 minutes prior to infusion for infusion reaction prophylaxis.Indications:Crohn's disease of large intestine without complication (CMS/HCC) ([facility]) Given 08/10/2023 9:52 AM AUTOMOTIVE PARTS ADVISOR 650 mg Carrier Fluids for Secondary Infusion - 0.9% Sodium Chloride 30 mL, intravenous, As needed, For priming tubing and/or flushing, Starting on Sun08/10/23 at 0947, 0-250ml/hr to flush line after IV infusions when no maintenance IV ordered. Infuse 30mL at the same rate as the secondary infusion. Run as primary IV, not intended for KVOIndications:Crohn's disease of large intestine without complication (CMS/HCC) ([facility]) Given 08/10/2023 9:51 AM AUTOMOTIVE PARTS ADVISOR 30 mL diphenhydrAMINE (BENADRYL) tab/cap 25 mg 25 mg, oral, Once, On Sun08/10/23 at 1030, For 1 dose, Give 30 minutes prior to infusion for infusion reaction prophylaxis.Indications:Crohn's disease of large intestine without complication (CMS/HCC) ([facility]) Given 08/10/2023 9:52 AM AUTOMOTIVE PARTS ADVISOR 25 mg inFLIXimab (REMICADE) 600 mg in sodium chloride 0.9% 250 mL IVPB 600 mg, intravenous, Once, On Sun08/10/23 at 1100, For 1 dose, MAINTENANCE DOSE: Begin 4 [...] biosimilar has been rounded from 590 mg (5mg/kg) to 600 mg per the MTS policy approved by [facility] Pharmacy and Therapeutics committee. [facility] Pharmacy and Therapeutics committee as approved the following: ? 10% dose rounding policy for biotherapy agents to the nearest vial size Christine SanRell Joesphmookie, [facility] 08/10/23 9:51 AM Use 1.2 micron filter or less, low-sorbing, low protein binding.Indications:Crohn's disease of large intestine without complication (CMS/HCC) (HCC) New Bag 08/10/2023 10:21 AM AUTOMOTIVE PARTS ADVISOR 600 mg documented in this encounter Orders Nursing Count Last Ordered Date First Orde red Date NURSING COMMUNICATION 1 08/10/2023 VITAL SIGNS INTRA-INFUSION 1 08/10/2023 documented in this encounter Care Teams Student Career Development Specialist Relationship Specialty Start Date End Date Tae Mcfarland MD [address] [place] [address] PCP - General 06/18/20 documented as of this encounter
--- OUTSIDE RECORDS SUMMARY | 2024-06-10 07:03 | XMS_ITS | Encounter Summary ---
Author Organization [facility] Healthcare Address [address] [place] [address] Care Team Providers Care Applicator Sprayer Name Role Phone Tae Mcfarland MD Primary Care Provide r Encounter Details Date Type Department Care Team (Late st Contact Info) Description 03/13/2023 Telephone [facility] Neurology [address] [facility] [address] [place] [phone] [address] [facility] [facility] [address] [place], [place] [id number] Social History Tobacco Use Types Packs/Day Years Used Date Smoking Tobacco: Former Smokeless Tobacco: Never Alcohol Use Standard Drinks/Week Comments Yes 1 (1 standard drink = 0.6 oz pur e alcohol) Comments Unknown Sex and Gender Information Value Date Recorded Sex Assigned at Not on file 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:53 AM PATIENT ACCOUNTING REPRESENTATIVE Gender Identity Not on file Sexual Orientation Not on file documented as of this encounter Miscellaneous Notes * Telephone Encounter - Nadia Deluca - 03/15/2023 3:02 PM CDT Spoke with Lucia regarding her test results. * Telephone Encounter - Peggy Coffman NP - 03/13/2023 5:13 PM CDT MRI findings are stable. I have entered a result note. * Telephone Encounter - Nadia Deluca - 03/13/2023 1:56 PM CDT Patient called regarding test results for this MRI of the Brain. Please send results back to me Laron will call the patient. documented in this encounter Plan of Treatment Not on file documented as of this encounter Visit Diagnoses Not on filedocumented in this encounter Care Teams Applicator Sprayer Relationship Specialty Start Date End Date Tae Mcfarland MD [address] [place] [address] PCP - General 06/18/20 documented as of this encounter
--- OUTSIDE RECORDS SUMMARY | 2024-06-10 07:03 | XMS_ITS | Encounter Summary ---
Author Organization [facility] Address [address] [place] [address] Care Team Providers Care Educational Therapist Name Role Phone Tae Mcfarland MD Primary Care Provide r Reason for Visit * Reason Onset Date Comments Test Results 01/03/2023 Results Nurtec Samples 01/03/2023 Encounter Details Date Type Department Care Team (Late st Contact Info) Description 01/03/2023 Telephone [facility] Neurology [address] [facility] [address] [place] [address] Lisa Worthington NP [address] [address] Test Results (Results ); Nurtec Samples Social History Tobacco Use Types Packs/Day Years Used Date Smoking Tobacco: Former Smokeless Tobacco: Never Alcohol Use Standard Drinks/Week Comments Yes 1 (1 standard drink = 0.6 oz pur e alcohol) Comments Unknown Sex and Gender Information Value Date Recorded Sex Assigned at Not on file 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:53 AM FLY MAKER Gender Identity Not on file Sexual Orientation Not on file documented as of this encounter Miscellaneous Notes * Telephone Encounter - Nadia Deluca - 01/04/2023 10:52 AM CDT Patient also came into the office and received samples of Nurtec. Telephone message on 12/04/2022 was when provider stated patient could try Nurtec samples as Ubrelvy wasn't working. * Telephone Encounter - Torie Vance MA - 01/03/2023 1:23 PM CDT ----- Message from Peggy Coffman NP sent at 01/02/2023 4:07 PM CDT ----- Please let Karon know that cervical MRI shows mild degenerative changes without high grade stenosis. Abnormal area found incidentally on brain MRI appears most consistent with demineralization, whichis the loss of minerals from the bone. Fortunately, there were no abnormal neurological findings. * Telephone Encounter - Torie Vance MA - 01/03/2023 1:21 PM CDT Patient came in for her test results. * Telephone Encounter - Torie Vance MA - 01/03/2023 1:20 PM CDT ----- Message from Peggy Coffman NP sent at 01/02/2023 4:03 PM CDT ----- Repeat brain MRI shows a 6 mm mass along the area above the cerebellum consistent with a meningioma, a benign brain tumor in the area surrounding the brain. This is putting minimal pressure on the cerebellum, which is the part of the brain responsible for balance and movement. This could be contributing to some of her symptoms including dizziness although less likely related to vision loss. I will order a repeat brain MRI for 3 months to assess stability. Please have her give us an update on her response with [facility]. documented in this encounter Plan of Treatment Not on file documented as of this encounter Visit Diagnoses Not on filedocumented in this encounter Care Teams Educational Therapist Relationship Specialty Start Date End Date Tae Mcfarland MD [address] [place] [address] PCP - General 06/18/20 documented as of this encounter
--- OUTSIDE RECORDS SUMMARY | 2024-06-10 07:03 | XMS_ITS | Encounter Summary ---
Author Organization [facility] Address [address] [place] [address] Care Team Providers Care Sap Basis Administrator Name Role Phone Tae Mcfarland MD Primary Care Provide r Encounter Details Date Type Department Care Team (Late st Contact Info) Description 12/22/2022 Telephone [facility] Neurology [address] [facility] [address] [place] [phone] Peggy Coffman POST CLOSING SPECIALIST [address] [facility] [address] [place], [place] [phone] Social History Tobacco Use Types Packs/Day Years Used Date Smoking Tobacco: Former Smokeless Tobacco: Never Alcohol Use Standard Drinks/Week Comments Yes 1 (1 standard drink = 0.6 oz pur e alcohol) Comments Unknown Sex and Gender Information Value Date Recorded Sex Assigned at Not on file 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:53 AM FORESTRY INSTRUCTOR Gender Identity Not on file Sexual Orientation Not on file documented as of this encounter Miscellaneous Notes * Telephone Encounter - Leslee Boyd - 12/22/2022 9:39 AM CDT [facility] Patient called stating she has called about concern of her blurred vision\with spots she has been experiencing for some days now and haven't heard anything back yet . Please give her a call . documented in this encounter Plan of Treatment Not on file documented as of this encounter Visit Diagnoses Not on filedocumented in this encounter Care Teams Sap Basis Administrator Relationship Specialty Start Date End Date Tae Mcfarland MD [address] [place] [address] PCP - General 06/18/20 documented as of this encounter
--- OUTSIDE RECORDS SUMMARY | 2024-06-10 07:03 | XMS_ITS | Encounter Summary ---
Author Organization [facility] Address [address] [facility] [address] [place] [address] Care Team Providers Care Pipe Organ Technician Name Role Phone Tae Mcfarland MD Primary Care Provide r Reason for Visit * Reason Onset Date Comments Prior Auth 11/15/2022 Qulipta 60mg & U brelvy 100mg Encounter Details Date Type Department Care Team (Late st Contact Info) Description 11/15/2022 Telephone [facility] Neurology [address] [facility] [address] [place] [address] Peggy Coffman FEDERAL JUDGE [address] [address] Prior Auth (Qulipta 60mg & Ubrelvy 100mg ) Social History Tobacco Use Types Packs/Day Years Used Date Smoking Tobacco: Former Smokeless Tobacco: Never Alcohol Use Standard Drinks/Week Comments Yes 1 (1 standard drink = 0.6 oz pur e alcohol) Comments Unknown Sex and Gender Information Value Date Recorded Sex Assigned at Not on file 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:53 AM IT COMMUNICATIONS MANAGER Gender Identity Not on file Sexual Orientation Not on file documented as of this encounter Ordered Prescriptions Prescription Sig Dispense Quantity Refills Last Filled Start Date End Date rizatriptan SUPERVISOR PURIFICATION (MAXALT-SUPERVISOR PURIFICATION) 10 mg disintegrating tabletIndications:Mi graine Take 1 tablet (10 mg total) by mouth once as needed for migraine May repeat in 2 hours if unresolved. Do not exceed 30 mg in 24 hours. 9 tablet 3 11/27/2022 documented in this encounter Miscellaneous Notes * Telephone Encounter - Nely Javed MA - 11/28/2022 8:46 AM CDT Will do * Telephone Encounter - Nely Javed MA - 11/27/2022 4:02 PM CDT I have called spoken with patient and she states that she has not tried the Qulipta yet but when she goes to fiber picker the [facility] that she will take the savings card up there and see if she is able to get the Qulipta. Then she will call with an Update once she begins to take it * Telephone Encounter - Peggy Coffman NP - 11/27/2022 10:38 AM CDT She is already on 3 migraine preventatives so unsure why the Qulipta was denied. Please see how Qulipta is working for her and if it is effective, then maybe we can try to appeal. For now, I will start her on an alternative rescue medication.She can take Maxalt 10 mg p.r.n. at onset of migraine andrepeat in 2 hours if needed. * Telephone Encounter - Nely Javed MA - 11/20/2022 3:59 PM CDT Qulipta mg was denied because it ststes the patient doesn't meet criteria, and the Ubrelvy was denied because of the step therapy that the patient has not tried more than on triptan I have scanned inbot denials in media please see and advise of the next steps thanks * Telephone Encounter - Nely Javed MA - 11/15/2022 11:03 AM CDT I have submitted a PA for Ubrelvy 100mg and Qulipta 60mg through Cover my meds. Waiting on determination documented in this encounter Plan of Treatment Not on file documented as of this encounter Visit Diagnoses Not on filedocumented in this encounter Discontinued Medications Medication Sig Discontinue Reason Start Date End Da te SUMAtriptan (IMITREX) 50 mg tablet TAKE 1 TAB AT ONSET OF HEADACHE IF NO RELIEF MAY REPEAT 1 TAB AFTER AT LEAST 2 HRS MAX=4 TABS/DAY Alternate therapy 08/01/2022 11/27/2022 documented as of this encounter Care Teams Pipe Organ Technician Relationship Specialty Start Date End Date Tae Mcfarland MD [address] [place] [address] PCP - General 06/18/20 documented as of this encounter
--- OUTSIDE RECORDS SUMMARY | 2024-06-10 07:03 | XMS_ITS | Encounter Summary ---
Author Organization [facility] Healthcare Address [address] [place] [address] Care Team Providers Care Electrotype Finisher Name Role Phone Tae Mcfarland MD Primary Care Provide r Reason for Referral * MRI/CAT/PET Scan (Routine) - Closed Specialty Diagnoses / Procedures Referred By Contac t Referred To Contact Radiology Diagnoses Abnormal brain MRI Procedures MRI Cervical Spine W WO Contrast Peggy Coffman NP Phone: tel: fax: [address] [phone] Referral ID Status Reason Start Date Expiration Date Visits Re quested Visits Authorized [id number] Closed 12/01/2022 11/29/2023 1 1 Reason for Visit * MRI/CAT/PET Scan (Routine) - Closed Specialty Diagnoses / Procedures Referred By Contac t Referred To Contact Radiology Diagnoses Abnormal brain MRI Procedures MRI Cervical Spine W WO Contrast Peggy Coffman NP Phone: tel: fax: [address] [phone] Referral ID Status Reason Start Date Expiration Date Visits Re quested Visits Authorized [id number] Closed 12/01/2022 11/29/2023 1 1 Encounter Details Date Type Department Care Team (Latest Contact Info) Description 12/28/2022 6:14 PM CDT - 12/28/2022 11:59 PM CDT Hospital Encounter [facility] MRI [address] [place] [address] Abnormal brain MRI Discharge Disposition: Discharge to home or self care Social History Tobacco Use Types Packs/Day Years Used Date Smoking Tobacco: Former Smokeless Tobacco: Never Alcohol Use Standard Drinks/Week Comments Yes 1 (1 standard drink = 0.6 oz pur e alcohol) Comments Unknown Sex and Gender Information Value Date Recorded Sex Assigned at Not on file 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:53 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 lisinopriL (PRINIVIL,ZESTRIL) 40 mg tablet Take 1 tablet (40 mg total) by mouth daily losartan (COZAAR) 50 mg tablet Take 50 mg by mouth concrete placement equipment operator before breakfast. meloxicam (MOBIC) 7.5 mg tablet [...] mg total) by mouth nightly 10/24/2022 rizatriptan [employer] (MAXALT-[employer]) 10 mg disintegrating tabletIndications:Mi graine Take 1 [...] by mouth daily 30 tablet 11 10/30/2022 ubrogepant (Ubrelvy) 100 mg tablet Take 1 [...] Encounter Note - Peggy Coffman NP - 12/28/2022 11:59 PM CDT Please let Karon know that cervical MRI shows mild degenerative changes without high grade stenosis. Abnormal area found incidentally on brain MRI appears most consistent with demineralization, whichis the loss of minerals from the bone. Fortunately, there were no abnormal neurological findings. documented in this encounter Plan of Treatment Not on file documented as of this encounter Procedures Procedure Name Priority Date/Time Associated Diagnosis Comments MRI CERVICAL SPINE W WO CONTRAST Schedule Routine, Read Routine (OP Routine) 12/28/2022 8:20 PM CDT Abnormal brain MRI documented in this encounter Results * MRI Cervical Spine W WO Contrast (12/28/2022 8:20 PM CDT) Anatomical Region Laterality Modality Spine N/A Magnetic Resonan ce 12/29/2022 7:23 AM CDT Narrative 12/29/2022 7:38 AM CDT EXAM DESCRIPTION: ?? MRI CERVICAL SPINE W WO CONTRAST REASON FOR STUDY: ?? Bone lesion, C-spine, incidental on MR, malignancy suspected ?? Pt stated 11/20/2022 MRI was done found a tumor of brain. Pt stated having KEMP since 2020. Pt stated has worsen x 1 year. Pt stated KEMP mostly in the back of her head pt stated. Pt stated vision blurry that has been intermittent x 1 week. ?? TECHNIQUE: Sagittal and Axial imaging includes T1, T2, STIR and gradient echo sequences. ??Post contrast T1-weighted images. ? CONTRAST TYPE/DOSE: ?? 13mL of GADOTERATE MEGLUMINE 0.5 MMOL/ML INTRAVENOUS SOLUTION (SO) ??injected via ?? intravenous COMPARISON: ?? Brain MRI 11/28/[address] 05/27/2021 FINDINGS: ALIGNMENT: ?? Normal. VERTEBRAE: ?? Vertebral body height is maintained with no acute compression deformity. ?? Redemonstrated 4 mm ovoid slightly T1 hypointense focus in the right lateral C3 vertebral body described on the 11/28/2022 brain MRI. ?? Nonspecific but favor focal demineralization or benign fibro-osseous lesion given no associated marrow edema or enhancement. Few small hemangiomas with no marrow replacing process. ??No enhancing osseous lesion. DISCS: ?? Mild disc height loss at C6-C7. ??Disc heights are otherwise maintained. HARDWARE: ?? None in the spine. CORD: ?? Normal in size and signal intensity. ?? No abnormal cord enhancement. C1-C2: ?? No significant spinal stenosis. C2-C3: ?? No significant disc bulge. No significant spinal canal or neural foraminal stenosis. C3-C4: ?? No significant disc bulge. No significant spinal canal or neural foraminal stenosis. C4-C5: ?? No significant disc bulge. No significant spinal canal or neural foraminal stenosis. C5-C6: ?? Tiny central disc protrusion. ??Mild uncovertebral hypertrophy. ??No significant spinal canal stenosis. ??No significant left and mild right neural foraminal stenosis. C6-C7: ?? Small central disc protrusion. ??Mild uncovertebral and facet arthropathy. ??No significant spinal canal stenosis. ??Mild bilateral neural foraminal stenosis. C7-T1: ?? No significant spinal stenosis or neural foraminal stenosis. UPPER THORACIC: ?? Incompletely imaged. No significant spinal stenosis or foraminal stenosis. OTHER: ?? No other significant finding. IMPRESSION: No acute cervical spine abnormality or enhancing lesion. Mild cervical spondylosis with no significant spinal canal or neural foraminal stenosis. THIS IS AN ELECTRONICALLY VERIFIED FINAL REPORT 12/29/2022 7:38 AM - Electronically signed by ??Ramon Cortez M.D. D: ??12/29/2022 7:38 AM T: Report ID: [id number] Reading Location: ??[id number] Procedure Note Ramon Cortez MD - 12/29/2022 EXAM DESCRIPTION: MRI CERVICAL SPINE W WO CONTRAST REASON FOR STUDY: Bone lesion, C-spine, incidental on MR, malignancy suspected Pt stated 11/20/2022 MRI was done found a tumor of brain. Pt stated havingHA since 2020. Pt stated has worsen x 1 year. Pt stated KEMP mostly in the backof her head pt stated. Pt stated vision blurry that has been intermittent x 1 week. TECHNIQUE: Sagittal and Axial imaging includes T1, T2, STIR and gradientecho sequences. Post contrast T1-weighted images. CONTRAST TYPE/DOSE: 13mL of GADOTERATE MEGLUMINE 0.5 MMOL/ML INTRAVENOUS SOLUTION (SO) injected via intravenous COMPARISON: Brain MRI 11/28/[address] 05/27/2021 FINDINGS: ALIGNMENT: Normal. VERTEBRAE: Vertebral body height is maintained with no acute compression deformity. Redemonstrated 4 mm ovoid slightly T1 hypointense focus inthe right lateral C3 vertebral body described on the 11/28/2022 brain MRI. Nonspecific but favor focal demineralization or benign fibro-osseouslesion given no associated marrow edema or enhancement. Few small hemangiomaswith no marrow replacing process. No enhancing osseous lesion. DISCS: Mild disc height loss at C6-C7. Disc heights are otherwise maintained. HARDWARE: None in the spine. CORD: Normal in size and signal intensity. No abnormal cordenhancement. C1-C2: No significant spinal stenosis. C2-C3: No significant disc bulge. No significant spinal canal or neural foraminal stenosis. C3-C4: No significant disc bulge. No significant spinal canal or neural foraminal stenosis. C4-C5: No significant disc bulge. No significant spinal canal or neural foraminal stenosis. C5-C6: Tiny central disc protrusion. Mild uncovertebral hypertrophy.No significant spinal canal stenosis. No significant left and mild rightneural foraminal stenosis. C6-C7: Small central disc protrusion. Mild uncovertebral and facet arthropathy. No significant spinal canal stenosis. Mild bilateral neural foraminal stenosis. C7-T1: No significant spinal stenosis or neural foraminal stenosis. UPPER THORACIC: Incompletely imaged. No significant spinal stenosis or foraminal stenosis. OTHER: No other significant finding. IMPRESSION: No acute cervical spine abnormality or enhancing lesion. Mild cervical spondylosis with no significant spinal canal or neural foraminal stenosis. THIS IS AN ELECTRONICALLY VERIFIED FINAL REPORT 12/29/2022 7:38 AM - Electronically signed by Ramon Cortez M.D. AG T: Report ID: [id number] Reading Location: [place] [address] Peggy Coffman SPICE FUMIGATOR IMG MRI PROCEDURES Final R esult documented in this encounter Visit Diagnoses Diagnosis Abnormal brain MRI Nonspecific (abnormal) findings on radiological and other examination of skull and head documented in this encounter Care Teams Electrotype Finisher Relationship Specialty Start Date End Date Tae Mcfarland MD [address] [place] [address] PCP - General 06/18/20 documented as of this encounter
--- OUTSIDE RECORDS SUMMARY | 2024-06-10 07:03 | XMS_ITS | Encounter Summary ---
Author Organization [facility] Address [address] [place] [address] Care Team Providers Care Administrative Office Assistant Name Role Phone Tae Mcfarland MD Primary Care Provide r Reason for Visit * Reason Comments OP Infusion * Episode Based Medications (Routine) - Closed Specialty Diagnoses / Procedures Referred By Contac t Referred To Contact Diagnoses Crohn's disease of large intestine without complication (CMS/HCC) (HCC) Myles Mahajan, DO [address] [facility] [place] [address] Phone: tel: fax: [facility] [address] [place] [phone] Phone: tel: fax: Referral ID Status Reason Start Date Expiration Date Visits Re quested Visits Authorized [id number] Closed 10/04/2022 11/03/2023 99 99 Encounter Details Date Type Department Care Team (Late st Contact Info) Description 02/02/2023 8:00 AM CDT Infusion [facility] [address] [place] [phone] Crohn's disease of large intestine without complication (CMS/HCC) (HCC) (Primary Dx) Social History Tobacco Use Types Packs/Day Years Used Date Smoking Tobacco: Former Smokeless Tobacco: Never Alcohol Use Standard Drinks/Week Comments Yes 1 (1 standard drink = 0.6 oz pur e alcohol) Comments Unknown Sex and Gender Information Value Date Recorded Sex Assigned at Not on file 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 Gender Identity Not on file Sexual Orientation Not on file documented as of this encounter Last Filed Vital Signs Vital Sign Reading Time Taken Comments Blood Pressure 98/67 02/02/2023 8:14 AM CDT Pulse 74 02/02/2023 8:14 AM CDT Temperature 36.9 ??C (98.4 ??F) 02/02/2023 8:14 AM CD T Respiratory Rate 16 02/02/2023 8:14 AM CDT Oxygen Saturation 93% 02/02/2023 8:14 AM CDT Inhaled Oxygen Concentration - - Weight 60.5 kg (133 lb 4.8 oz) 02/02/2023 8:14 A M CDT Height - - Body Mass Index 24.38 10/30/2022 10:09 AM CDT documented in this encounter Progress Notes * Kelechi Braswell RP - 02/02/2023 8:00 AM CDT Pharmacy Note - Biotherapy Dose Rounding Infliximab or infliximab biosimilar has been rounded from 590 mg ( 10 mg/kg) to 600 mg per the MTS policy approved by [facility] Pharmacy and Therapeutics committee. [facility] Pharmacy and Therapeutics committee as approved the following: ?? 10% dose rounding policy for biotherapy agents to the nearest vial size Kelechi Braswell RPh 02/02/23 8:17 AM documented in this encounter Nursing Notes * Melissa Leal RN - 02/02/2023 8:00 AM CDT Pt arrives for Remicade infusion. Pt denies recent fevers, infection and abx use. No other issues/concerns noted. PIV started, (+) blood return. Premeds given, 30 min wait time prior to start of infusion. Infusion titrated per AUG. Pt tolerated infusion. Schedule confirmed. Pt D/C ambulatory. documented in this encounter Plan of Treatment Not on file documented as of this encounter Visit Diagnoses Diagnosis Crohn's disease of large intestine without complication (CMS/HCC) (FORMERLY [facility])- Primary documented in this encounter Administered Medications Inactive Administered Medications - up to 3 most recent administrations Medication Order MAR Action Action Date Dose Rate Site acetaminophen (TYLENOL) tablet 650 mg 650 mg, oral, Once, On Sun02/02/23 at 0845, For 1 dose, Give 30 minutes prior to infusion for infusion reaction prophylaxis.Indications:Crohn's disease of large intestine without complication (CMS/HCC) (FORM[facility]) Given 02/02/2023 8:19 AM CDT 650 mg Carrier Fluids for Secondary Infusion - 0.9% Sodium Chloride 30 mL, intravenous, As needed, For priming tubing and/or flushing, Starting on Sun02/02/23 at 0813, 0-250ml/hr to flush line after IV infusions when no maintenance IV ordered. Infuse 30mL at the same rate as the secondary infusion. Run as primary IV, not intended for KVOIndications:Crohn's disease of large intestine without complication (CMS/HCC) ([facility]) Given 02/02/2023 8:19 AM CDT 30 mL diphenhydrAMINE (BENADRYL) tab/cap 25 mg 25 mg, oral, Once, On Sun02/02/23 at 0845, For 1 dose, Give 30 minutes prior to infusion for infusion reaction prophylaxis.Indications:Crohn's disease of large intestine without complication (CMS/HCC) ([facility]) Given 02/02/2023 8:19 AM CDT 25 mg inFLIXimab (REMICADE) 600 mg in sodium chloride 0.9% 250 mL IVPB 600 mg, intravenous, Once, On Sun02/02/23 at 0915, For 1 dose, MAINTENANCE DOSE: [...] mg per the MTS policy approved by [facility] Pharmacy and Therapeutics committee. Use 1.2 micron filter or less, low-sorbing, low protein binding.Indications:Crohn's disease of large intestine without complication (CMS/HCC) (HCC) New Bag 02/02/2023 9:00 AM CDT 600 mg documented in this encounter Orders Nursing Count Last Ordered Date First Orde red Date HEIGHT AND WEIGHT 1 02/02/2023 NURSING COMMUNICATION 1 02/02/2023 VITAL SIGNS INTRA-INFUSION 1 02/02/2023 documented in this encounter Care Teams Administrative Office Assistant Relationship Specialty Start Date End Date Tae Mcfarland MD [address] [place] [address] PCP - General 06/18/20 documented as of this encounter
--- OUTSIDE RECORDS SUMMARY | 2024-06-10 07:03 | XMS_ITS | Encounter Summary ---
Author Organization [facility] Address [address] [place] [address] Care Team Providers Care Cocoa Mill Operator Name Role Phone Tae Mcfarland MD Primary Care Provide r Reason for Referral * MRI/CAT/PET Scan (Routine) - Closed Specialty Diagnoses / Procedures Referred By Phong luo Referred To Contact Radiology Diagnoses Meningioma of cerebellum (HCC) Procedures MRI Brain WO Contrast Peggy Coffman NP Phone: tel: fax: [address] [phone] Referral ID Status Reason Start Date Expiration Date Visits Re quested Visits Authorized [id number] Closed 02/26/2023 04/12/2023 1 1 Reason for Visit * MRI/CAT/PET Scan (Routine) - Closed Specialty Diagnoses / Procedures Referred By Contac valerio Referred To Contact Radiology Diagnoses Meningioma of cerebellum (HCC) Procedures MRI Brain WO Contrast Peggy Coffman NP Phone: tel: fax: [address] [phone] Referral ID Status Reason Start Date Expiration Date Visits Re quested Visits Authorized [id number] Closed 02/26/2023 04/12/2023 1 1 Encounter Details Date Type Department Care Team (Latest Contact Info) Description 02/28/2023 2:20 PM CDT - 02/28/2023 11:59 PM CDT Hospital Encounter [facility] MRI [address] [place] [address] Meningioma of cerebellum (HCC) Discharge Disposition: Discharge to home or self care Social History Tobacco Use Types Packs/Day Years Used Date Smoking Tobacco: Former Smokeless Tobacco: Never Alcohol Use Standard Drinks/Week Comments Yes 1 (1 standard drink = 0.6 oz pur e alcohol) Comments Unknown Sex and Gender Information Value Date Recorded Sex Assigned at Not on file 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:53 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 lisinopriL (PRINIVIL,ZESTRIL) 40 mg tablet Take 1 tablet (40 mg total) by mouth daily losartan (COZAAR) 50 mg tablet Take 50 mg by mouth medical insurance collector before breakfast. meloxicam (MOBIC) 7.5 mg tablet [...] mg total) by mouth nightly 10/24/2022 rizatriptan PLASTIC SHEETS SUPERVISOR (MAXALT-PLASTIC SHEETS SUPERVISOR) 10 mg disintegrating tabletIndications:Mi graine Take 1 [...] Encounter Note - Peggy Coffman NP - 02/28/2023 11:59 PM CDT Please let Lucia know that her repeat MRI shows a stable small meningioma likely asymptomatic andunrelated to her symptoms. However, will continue to follow her symptoms and repeat imaging as clinically necessary. documented in this encounter Plan of Treatment Not on file documented as of this encounter Procedures Procedure Name Priority Date/Time Associated Diagnosis Comments MRI BRAIN WO CONTRAST Schedule Routine, Read Routine (OP Routine) 02/28/2023 3:03 PM CDT Meningioma of cerebellum (HCC) documented in this encounter Results * MRI Brain WO Contrast (02/28/2023 3:03 PM CDT) Anatomical Region Laterality Modality Head and Neck N/A Magnetic Resonan ce 02/28/2023 3:57 PM CDT Narrative 02/28/2023 4:08 PM CDT EXAM DESCRIPTION: ?? MRI BRAIN WO CONTRAST REASON FOR STUDY: F/u for meningioma seen on prior imaging. No change in symptoms. Pt has continued to have headaches x 1 year. No surgery. ? TECHNIQUE: Multiplanar imaging includes non-contrasted T1, T2, FLAIR, and diffusion with ADC map sequences. Additional sequence(s) sensitive to blood products. Images stored on PACS. ? COMPARISON: ?? Brain MRI 12/28/2022 ??05/27/[address] FINDINGS: CEREBRUM: ?? No hemorrhage, edema, or mass effect. ?? WHITE MATTER: ?? Occasional tiny foci of T2/FLAIR hyperintensity within the periventricular and subcortical white matter that are nonspecific but most likely secondary to chronic microvascular ischemia and not more than typical for age. POSTERIOR FOSSA: ?? Brainstem and cerebellum appear unremarkable. DIFFUSION IMAGING: ?? No recent infarction. EXTRAAXIAL SPACES: ?? No abnormal extra-axial fluid collection. ??Normal ventricles. ??Redemonstrated 6 mm round mildly T2 hyperintense extra-axial dural-based lesion along the inferior margin of the right tentorium cerebelli in keeping with a probable meningioma. ??No significant mass effect or edema in the adjacent brain parenchyma. ??No new extra-axial lesion. BRAIN VOLUME: ?? Within normal limits for age. PITUITARY: ?? Unremarkable. VASCULATURE: ?? No flow disturbance identified. ORBITS: ?? No masses. Globes normal. PARANASAL SINUSES AND MASTOIDS: ?? Redemonstrated slightly expansile filling of the left posterior ethmoid air cells persistent back to the 05/27/[address] ??Paranasal sinuses are otherwise well aerated with no air-fluid level. ?? Trace mastoid air cell fluid with no middle ear fluid. ??Clear left mastoid air cells. OTHER: ?? Suspect right TMJ degenerative changes. IMPRESSION: No acute intracranial abnormality with chronic findings above. Stable 6 mm extra-axial lesion along the inferior margin of the right tentorium cerebelli most consistent with a meningioma. THIS IS AN ELECTRONICALLY VERIFIED FINAL REPORT 02/28/2023 4:08 PM - Electronically signed by ??Ramon HERBERT D: ??02/28/2023 4:08 PM T: Report ID: [id number] Reading Location: ??[id number] Procedure Note Ramon Cortez MD - 02/28/2023 EXAM DESCRIPTION: MRI BRAIN WO CONTRAST REASON FOR STUDY: F/u for meningioma seen on prior imaging. No change in symptoms. Pt has continued to have headaches x 1 year. No surgery. TECHNIQUE: Multiplanar imaging includes non-contrasted T1, T2, FLAIR, and diffusion with ADC map sequences. Additional sequence(s) sensitive [email or web address] products. Images stored on PACS. COMPARISON: Brain MRI 12/28/2022 05/27/[address] FINDINGS: CEREBRUM: No hemorrhage, edema, or mass effect. WHITE MATTER: Occasional tiny foci of T2/FLAIR hyperintensity within the periventricular and subcortical white matter that are nonspecific but most likely secondary to chronic microvascular ischemia and not more thantypical for age. POSTERIOR FOSSA: Brainstem and cerebellum appear unremarkable. DIFFUSION IMAGING: No recent infarction. EXTRAAXIAL SPACES: No abnormal extra-axial fluid collection. Normal ventricles. Redemonstrated 6 mm round mildly T2 hyperintense extra-axial dural-based lesion along the inferior margin of the right tentoriumcerebelli in keeping with a probable meningioma. No significant mass effect oredema in the adjacent brain parenchyma. No new extra-axial lesion. BRAIN VOLUME: Within normal limits for age. PITUITARY: Unremarkable. VASCULATURE: No flow disturbance identified. ORBITS: No masses. Globes normal. PARANASAL SINUSES AND MASTOIDS: Redemonstrated slightly expansilefilling of the left posterior ethmoid air cells persistent back to the 05/27/2021head CT. Paranasal sinuses are otherwise well aerated with no air-fluid level. Trace mastoid air cell fluid with no middle ear fluid. Clear left mastoidair cells. OTHER: Suspect right TMJ degenerative changes. IMPRESSION: No acute intracranial abnormality with chronic findings above. Stable 6 mm extra-axial lesion along the inferior margin of the right tentorium cerebelli most consistent with a meningioma. THIS IS AN ELECTRONICALLY VERIFIED FINAL REPORT 02/28/2023 4:08 PM - Electronically signed by Ramon Cortez M.D. AG T: Report ID: [id number] Reading Location: [place] [address] Peggy Coffman EXTENSION SERVICE SPECIALIST IN CHARGE IMG MRI PROCEDURES Final R esult documented in this encounter Visit Diagnoses Diagnosis Meningioma of cerebellum (HCC) documented in this encounter Care Teams Cocoa Mill Operator Relationship Specialty Start Date End Date Tae Mcfarland MD [address] [place] [address] PCP - General 06/18/20 documented as of this encounter
--- OUTSIDE RECORDS SUMMARY | 2024-06-10 07:03 | XMS_ITS | Encounter Summary ---
Author Organization [facility] Address [address] [address] Care Team Providers Care Gun Striper Name Role Phone Tae Mcfarland MD Primary Care Provide r Reason for Referral * MRI/CAT/PET Scan (Routine) - Closed Specialty Diagnoses / Procedures Referred By Contac t Referred To Contact Radiology Diagnoses Abnormal brain MRI Procedures MRI Cervical Spine W WO Contrast Peggy Coffman NP Phone: tel: fax: [address] [address] Referral ID Status Reason Start Date Expiration Date Visits Re quested Visits Authorized [id number] Closed 12/01/2022 11/29/2023 1 1 * MRI/CAT/PET Scan (Routine) - Closed Specialty Diagnoses / Procedures Referred By Contac t Referred To Contact Radiology Diagnoses Abnormal brain MRI Procedures MRI Brain W WO Contrast Peggy Coffman NP Phone: tel: fax: [address] [address] Referral ID Status Reason Start Date Expiration Date Visits Re quested Visits Authorized [id number] Closed 12/01/2022 11/29/2023 1 1 Encounter Details Date Type Department Care Team (Late st Contact Info) Description 12/01/2022 Orders Only [facility] Neurology [address] [facility] [address] [place] [address] Peggy Coffman NP [address] [facility] [address] [place] [address] Abnormal brain MRI (Primary Dx) Social History Tobacco Use Types Packs/Day Years Used Date Smoking Tobacco: Former Smokeless Tobacco: Never Alcohol Use Standard Drinks/Week Comments Yes 1 (1 standard drink = 0.6 oz pur e alcohol) Comments Unknown Sex and Gender Information Value Date Recorded Sex Assigned at Not on file 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 documented in this encounter Plan of Treatment Not on file documented as of this encounter Results * MRI Cervical Spine [...] - Electronically signed by ??Ramon Cortez M.D. AG D: ??12/29/2022 7:38 AM T: Report ID: [id number] Reading Location: ??[id number] Procedure Note Ramon Cortez MD - 12/29/2022 [...] - Electronically signed by Ramon Cortez M.D. T: Report ID: [id number] Reading Location: [id number] us Peggy Coffman IMPREGNATOR AND DRIER HELPER IMG MRI PROCEDURES Final R esult * MRI Brain W WO Contrast (12/28/2022 8:20 PM CDT) Anatomical Region Laterality Modality Head and Neck N/A Magnetic Resonan ce 12/29/2022 7:02 AM CDT Narrative 12/29/2022 7:23 AM CDT EXAM DESCRIPTION: ?? MRI BRAIN W WO CONTRAST REASON FOR STUDY: ?? Brain/AIR TWIST OPERATOR neoplasm, monitor ?? Pt stated 11/20/2022 MRI was done found a tumor of brain. Pt stated having KEMP since 2020. Pt stated has worsen x 1 year. Pt stated KEMP mostly in the back of her head pt stated. Pt stated vision blurry that has been intermittent x 1 week. ?? TECHNIQUE: Multiplanar imaging includes noncontrast T1, T2, FLAIR, diffusion with ADC map and post contrast T1 sequences. Additional sequence(s) sensitive to blood products. ??Images stored on PACS. ? CONTRAST TYPE/DOSE: ?? 13mL of GADOTERATE MEGLUMINE 0.5 MMOL/ML INTRAVENOUS SOLUTION (SO) ??injected via ?? intravenous COMPARISON: ?? Brain MRI 11/28/[address] 05/27/2021 FINDINGS: CEREBRUM: ?? No hemorrhage, edema, or mass effect. ??No abnormal enhancement. WHITE MATTER: ?? Normal. POSTERIOR FOSSA: ?? Brainstem and cerebellum appear unremarkable. ??No abnormal enhancement. DIFFUSION IMAGING: ?? No recent infarction. ? EXTRAAXIAL SPACES: ?? No abnormal extra-axial fluid collection. ??Redemonstrated 6 mm homogeneously enhancing circumscribed round T2 hyperintense diffusion restricting focus along the inferior margin of the right tentorium cerebelli, series 901, image number 54. ??Minimal mass effect on the underlying cerebellum with no parenchymal edema. ??No additional enhancing extra-axial lesion. BRAIN VOLUME: ?? Within normal limits for age. PITUITARY: ?? Unremarkable. VASCULATURE: ?? No flow disturbance identified. ORBITS: ?? No masses. Globes normal. PARANASAL SINUSES AND MASTOIDS: ?? Unchanged mild lobular ethmoid sinus mucosal thickening with partial opacification of the left posterior ethmoid air cells. No air-fluid level. ??Small right mastoid effusion without middle ear fluid. Left mastoid air cells are clear. ?? OTHER: ?? No other significant finding. IMPRESSION: No acute intracranial abnormality or enhancing parenchymal lesion. Redemonstrated 6 mm enhancing extra-axial lesion along the inferior margin of the right tentorium cerebelli with features most characteristic of a meningioma. THIS IS AN ELECTRONICALLY VERIFIED FINAL REPORT 12/29/2022 7:23 AM - Electronically signed by ??Ramon HERBERT D: ??12/29/2022 7:23 AM T: Report ID: [id number] Reading Location: ??[id number] Procedure Note Ramon Cortez MD - 12/29/2022 EXAM DESCRIPTION: MRI BRAIN W WO CONTRAST REASON FOR STUDY: Brain/AIR TWIST OPERATOR neoplasm, monitor Pt stated 11/20/2022 MRI was done found a tumor of brain. Pt stated havingHA since 2020. Pt stated has worsen x 1 year. Pt stated KEMP mostly in the backof her head pt stated. Pt stated vision blurry that has been intermittent x 1 week. TECHNIQUE: Multiplanar imaging includes noncontrast T1, T2, FLAIR,diffusion with ADC map and post contrast T1 sequences. Additional sequence(s)sensitive to blood products. Images stored on PACS. CONTRAST TYPE/DOSE: 13mL of GADOTERATE MEGLUMINE 0.5 MMOL/ML INTRAVENOUS SOLUTION (SO) injected via intravenous COMPARISON: Brain MRI 11/28/[address] 05/27/2021 FINDINGS: CEREBRUM: No hemorrhage, edema, or mass effect. No abnormal enhancement. WHITE MATTER: Normal. POSTERIOR FOSSA: Brainstem and cerebellum appear unremarkable. Noabnormal enhancement. DIFFUSION IMAGING: No recent infarction. EXTRAAXIAL SPACES: No abnormal extra-axial fluid collection.Redemonstrated 6 mm homogeneously enhancing circumscribed round T2 hyperintense diffusion restricting focus along the inferior margin of the right tentoriumcerebelli, series 901, image number 54. Minimal mass effect on the underlyingcerebellum with no parenchymal edema. No additional enhancing extra-axial lesion. BRAIN VOLUME: Within normal limits for age. PITUITARY: Unremarkable. VASCULATURE: No flow disturbance identified. ORBITS: No masses. Globes normal. PARANASAL SINUSES AND MASTOIDS: Unchanged mild lobular ethmoid sinusmucosal thickening with partial opacification of the left posterior ethmoid aircells. No air-fluid level. Small right mastoid effusion without middle earfluid. Left mastoid air cells are clear. OTHER: No other significant finding. IMPRESSION: No acute intracranial abnormality or enhancing parenchymal lesion. Redemonstrated 6 mm enhancing extra-axial lesion along the inferiormargin of the right tentorium cerebelli with features most characteristic of a meningioma. THIS IS AN ELECTRONICALLY VERIFIED FINAL REPORT 12/29/2022 7:23 AM - Electronically signed by Ramon Cortez M.D. AG T: Report ID: [id number] Reading Location: [place] [address] Peggy Coffman IMPREGNATOR AND DRIER HELPER IMG MRI PROCEDURES Final R esult documented in this encounter Visit Diagnoses Diagnosis Abnormal brain MRI- Primary Nonspecific (abnormal) findings on radiological and other examination of skull and head Abnormal brain MRI Nonspecific (abnormal) findings on radiological and other examination of skull and head Abnormal brain MRI Nonspecific (abnormal) findings on radiological and other examination of skull and head documented in this encounter Care Teams Gun Striper Relationship Specialty Start Date End Date Tae Mcfarland MD [address] [place] [address] PCP - General 06/18/20 documented as of this encounter
--- OUTSIDE RECORDS SUMMARY | 2024-06-10 07:03 | XMS_ITS | Encounter Summary ---
Author Organization [facility] Address [address] [facility] [address] [place] [address] Care Team Providers Care Rubber Tubing Splicer Name Role Phone Tae Mcfarland MD Primary Care Provide r Reason for Referral * MRI/CAT/PET Scan (Routine) - Closed Specialty Diagnoses / Procedures Referred By Contac t Referred To Contact Radiology Diagnoses Meningioma of cerebellum (HCC) Procedures MRI Brain WO Contrast Peggy Coffman NP Phone: tel: fax: [facility] [address] [place] [address] Referral ID Status Reason Start Date Expiration Date Visits Re quested Visits Authorized [id number] Closed 02/26/2023 04/12/2023 1 1 Encounter Details Date Type Department Care Team (Late st Contact Info) Description 01/02/2023 Orders Only [facility] Neurology [address] [facility] [address] [place] [address] Peggy Coffman NP [address] [address] Meningioma of cerebellum (HCC) (Primary Dx) Social History Tobacco Use Types Packs/Day Years Used Date Smoking Tobacco: Former Smokeless Tobacco: Never Alcohol Use Standard Drinks/Week Comments Yes 1 (1 standard drink = 0.6 oz pur e alcohol) Comments Unknown Sex and Gender Information Value Date Recorded Sex Assigned at Not on file 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 documented in this encounter Plan of Treatment Not on file documented as of this encounter Results * MRI Brain WO [...] 4:08 PM - Electronically signed by ??Ramon Cortez M.D. AG D: ??02/28/2023 4:08 PM T: Report ID: [id number] Reading Location: ??[id number] Procedure Note Ramon Cortez MD - 02/28/2023 EXAM DESCRIPTION: MRI BRAIN WO CONTRAST REASON FOR STUDY: F/u for meningioma seen on prior imaging. No change in symptoms. Pt has continued to have headaches x 1 year. No surgery. TECHNIQUE: Multiplanar imaging includes non-contrasted T1, T2, FLAIR, and diffusion with ADC map sequences. Additional sequence(s) sensitive [employer]. Images stored on PACS. COMPARISON: Brain MRI [...] Ramon Cortez M.D. AG T: Report ID: [id number] Reading Location: [place] [address] Peggy Coffman FOREST PATROLMAN IMG MRI PROCEDURES Final R esult documented in this encounter Visit Diagnoses Diagnosis Meningioma of cerebellum (HCC)- Primary Meningioma of cerebellum (HCC) documented in this encounter Care Teams Rubber Tubing Splicer Relationship Specialty Start Date End Date Tae Mcfarland MD [address] [place] [address] PCP - General 06/18/20 documented as of this encounter
--- OUTSIDE RECORDS SUMMARY | 2024-06-10 07:03 | XMS_ITS | Encounter Summary ---
Author Organization [facility] Address [address] [place] [address] Care Team Providers Care Art Therapy Specialist Name Role Phone Tae Mcfarland MD Primary Care Provide r Reason for Visit * Reason Onset Date Comments Test Results 03/15/2023 Results Encounter Details Date Type Department Care Team (Late st Contact Info) Description 03/15/2023 Telephone [facility] Neurology [address] [address] Peggy Coffman NP [address] [address] Test Results (Results ) Social History Tobacco Use Types Packs/Day Years Used Date Smoking Tobacco: Former Smokeless Tobacco: Never Alcohol Use Standard Drinks/Week Comments Yes 1 (1 standard drink = 0.6 oz pur e alcohol) Comments Unknown Sex and Gender Information Value Date Recorded Sex Assigned at Not on file 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 * Telephone Encounter - Torie Vance MA - 03/15/2023 2:57 PM CDT ----- Message from Peggy Coffman NP sent at 03/13/2023 5:12 PM CDT ----- Please let Lucia know that her repeat MRI shows a stable small meningioma likely asymptomatic andunrelated to her symptoms. However, will continue to follow her symptoms and repeat imaging as clinically necessary. documented in this encounter Plan of Treatment Not on file documented as of this encounter Visit Diagnoses Not on filedocumented in this encounter Care Teams Art Therapy Specialist Relationship Specialty Start Date End Date Tae Mcfarland MD [address] [place], [place] [id number] PCP - General 06/18/20 documented as of this encounter
--- OUTSIDE RECORDS SUMMARY | 2024-06-10 07:03 | XMS_ITS | Encounter Summary ---
Author Organization [facility] Address [address] [place] [address] Care Team Providers Care Meter Installer Name Role Phone Tae Mcfarland MD Primary Care Provide r Reason for Referral * MRI/CAT/PET Scan (Routine) - Closed Specialty Diagnoses / Procedures Referred By Phong luo Referred To Contact Radiology Diagnoses Abnormal brain MRI Procedures MRI Brain W WO Contrast Peggy Coffamn NP Phone: tel: fax: [address] [address] Referral ID Status Reason Start Date Expiration Date Visits Re quested Visits Authorized [id number] Closed 12/01/2022 11/29/2023 1 1 Reason for Visit * MRI/CAT/PET Scan (Routine) - Closed Specialty Diagnoses / Procedures Referred By Contac valerio Referred To Contact Radiology Diagnoses Abnormal brain MRI Procedures MRI Brain W WO Contrast Peggy Coffman NP Phone: tel: fax: [address] [address] Referral ID Status Reason Start Date Expiration Date Visits Re quested Visits Authorized [id number] Closed 12/01/2022 11/29/2023 1 1 Encounter Details Date Type Department Care Team (Latest Contact Info) Description 12/28/2022 6:14 PM CDT - 12/28/2022 11:59 PM CDT Hospital Encounter [facility] MRI [address] [place] [address] Abnormal brain MRI Discharge Disposition: Discharge to home or self care Social History Tobacco Use Types Packs/Day Years Used Date Smoking Tobacco: Former Smokeless Tobacco: Never Alcohol Use Standard Drinks/Week Comments Yes 1 (1 standard drink = 0.6 oz pur e alcohol) Comments Unknown Sex and Gender Information Value Date Recorded Sex Assigned at Not on file 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 lisinopriL (PRINIVIL,ZESTRIL) 40 mg tablet Take 1 tablet (40 mg total) by mouth daily losartan (COZAAR) 50 mg tablet Take 50 mg by mouth clinical account specialist before breakfast. meloxicam (MOBIC) 7.5 mg tablet [...] mg total) by mouth nightly 10/24/2022 rizatriptan CARPET INSPECTOR (MAXALT-CARPET INSPECTOR) 10 mg disintegrating tabletIndications:Mi graine Take 1 [...] Coffman NP - 12/28/2022 11:59 PM CDT Repeat brain MRI shows a 6 mm [...] us an update on her response with [facility]. documented in this encounter Plan of Treatment Not on file documented as of this encounter Procedures Procedure Name Priority Date/Time Associated Diagnosis Comments MRI BRAIN W WO CONTRAST Schedule Routine, Read Routine (OP Routine) 12/28/2022 8:20 PM CDT Abnormal brain MRI documented in this encounter Results * MRI Brain W WO Contrast (12/28/2022 8:20 PM CDT) Anatomical Region Laterality Modality Head and Neck N/A Magnetic Resonan ce 12/29/2022 7:02 AM CDT Narrative 12/29/2022 7:23 AM CDT EXAM DESCRIPTION: ?? MRI BRAIN W WO CONTRAST REASON FOR STUDY: ?? Brain/SEQUINS SPOOLER neoplasm, monitor ?? Pt stated 11/20/2022 MRI [...] 7:23 AM - Electronically signed by ??Ramon Cortez M.D. D: ??12/29/2022 7:23 AM T: Report ID: [id number] Reading Location: ??[id number] Procedure Note Ramon Cortez MD - 12/29/2022 EXAM DESCRIPTION: MRI BRAIN W WO CONTRAST REASON FOR STUDY: Brain/SEQUINS SPOOLER neoplasm, monitor Pt stated 11/20/2022 MRI was [...] Ramon Cortez M.D. AG T: Report ID: [id number] Reading Location: [place] [address] Peggy Coffman COMPLAINT CLERK IMG MRI PROCEDURES Final R esult documented in this encounter Visit Diagnoses Diagnosis Abnormal brain MRI Nonspecific (abnormal) findings on radiological and other examination of skull and head documented in this encounter Administered Medications Inactive Administered Medications - up to 3 most recent administrations Medication Order MAR Action Action Date Dose Rate Site gadoterate meglumine injection 13 mL 13 mL, intravenous, Once in imaging, contrast, Starting on Hollie 12/28/22 at 2116, For 1 dose Contrast Given 12/28/2022 9:17 PM CDT 13 mL documented in this encounter Orders Medications Ordered That Kaushal ht Not Have Been Administered Count Last Ordered Date First Ordered Date gadoterate meglumine injection 13 mL 1 12/10 documented in this encounter Care Teams Meter Installer Relationship Specialty Start Date End Date Tae Mcfarland MD [address] [place] [address] PCP - General 06/18/20 documented as of this encounter
--- OUTSIDE RECORDS SUMMARY | 2024-06-10 07:03 | XMS_ITS | Encounter Summary ---
Author Organization [facility] Healthcare Address [address] [place] [address] Care Team Providers Care Pipe Foreman Name Role Phone Tae Mcfarland MD Primary Care Provide r Reason for Visit * Reason Comments OP Infusion * Episode Based Medications (Routine) - Closed Specialty Diagnoses / Procedures Referred By Contac t Referred To Contact Diagnoses Crohn's disease of large intestine without complication (CMS/HCC) (HCC) Myles Mahajan, DO [address] [address] Phone: tel: fax: [facility] [address] [place] [phone] Phone: tel: fax: Referral ID Status Reason Start Date Expiration Date Visits Re quested Visits Authorized [id number] Closed 10/04/2022 11/03/2023 99 99 Encounter Details Date Type Department Care Team (Late st Contact Info) Description 05/18/2023 8:30 AM HORSERADISH GRINDER Infusion [facility] [address] [place] [phone] Crohn's disease of large intestine without complication (CMS/HCC) (HCC) (Primary Dx) Social History Tobacco Use Types Packs/Day Years Used Date Smoking Tobacco: Former Smokeless Tobacco: Never Alcohol Use Standard Drinks/Week Comments Yes 1 (1 standard drink = 0.6 oz pur e alcohol) Comments Unknown Sex and Gender Information Value Date Recorded Sex Assigned at Not on file 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:53 AM HORSERADISH GRINDER Gender Identity Not on file Sexual Orientation Not on file documented as of this encounter Last Filed Vital Signs Vital Sign Reading Time Taken Comments Blood Pressure 107/66 05/18/2023 8:16 AM HORSERADISH GRINDER Pulse 82 05/18/2023 8:16 AM HORSERADISH GRINDER Temperature 36.2 ??C (97.2 ??F) 05/18/2023 8:16 AM CS T Respiratory Rate 18 05/18/2023 8:16 AM HORSERADISH GRINDER Oxygen Saturation 97% 05/18/2023 8:16 AM HORSERADISH GRINDER Inhaled Oxygen Concentration - - Weight 58 kg (127 lb 12.8 oz) 05/18/2023 8:16 AM HORSERADISH GRINDER Height - - Body Mass Index 23.37 10/30/2022 10:09 AM CDT documented in this encounter Progress Notes * Christine Denton RPh - 05/18/2023 8:30 AM CST Pharmacy Note - Biotherapy Dose Rounding Infliximab or infliximab biosimilar has been rounded from 580 mg ( 10 mg/kg) to 600 mg per the MTS policy approved by [employer] Pharmacy and Therapeutics committee. [employer] Pharmacy and Therapeutics committee as approved the following: ?? 10% dose rounding policy for biotherapy agents to the nearest vial size Christine Denton RPh 05/18/23 8:23 AM ERADISH GRINDER documented in this encounter Nursing Notes * Abbi Chi RN - 05/18/2023 8:30 AM CST Pt arrives for Remicade infusion. Pt denies any new needs or concerns at this time. TB expires 02/03/24. PIV placed in left arm, (+) blood return and flushed easily. Premeds given, 30 min waited. Pt tolerated infusion well, titrated per order set. PIV de accessed and pressure dressing placed. Schedule printed for pt, next appointment confirmed. D/C ambulatory in stable condition. ERADISH GRINDER documented in this encounter Plan of Treatment Not on file documented as of this encounter Visit Diagnoses Diagnosis Crohn's disease of large intestine without complication (CMS/HCC) (HCC)- Primary documented in this encounter Administered Medications Inactive Administered Medications - up to 3 most recent administrations Medication Order MAR Action Action Date Dose Rate Site acetaminophen (TYLENOL) tablet 650 mg 650 mg, oral, Once, On Sun05/18/23 at 0900, For 1 dose, Give 30 minutes prior to infusion for infusion reaction prophylaxis.Indications:Crohn's disease of large intestine without complication (CMS/HCC) (HCC) Given 05/18/2023 8:20 AM HORSERADISH GRINDER 650 mg diphenhydrAMINE (BENADRYL) tab/cap 25 mg 25 mg, oral, Once, On Sun05/18/23 at 0900, For 1 dose, Give 30 minutes prior to infusion for infusion reaction prophylaxis.Indications:Crohn's disease of large intestine without complication (CMS/HCC) (HCC) Given 05/18/2023 8:20 AM HORSERADISH GRINDER 25 mg inFLIXimab (REMICADE) 600 mg in sodium chloride 0.9% 250 mL IVPB 600 mg, intravenous, Once, On Sun05/18/23 at 0930, For 1 dose, MAINTENANCE DOSE: [...] mg per the MTS policy approved by [employer] Pharmacy and Therapeutics committee. [employer] Pharmacy and Therapeutics committee as approved the following: ? 10% dose rounding policy for biotherapy agents to the nearest vial size Christine Denton RPh 05/18/23 8:23 AM Use 1.2 micron filter or less, low-sorbing, low protein binding.Indications:Crohn's disease of large intestine without complication (CMS/HCC) (HCC) New Bag 05/18/2023 8:57 AM HORSERADISH GRINDER 600 mg documented in this encounter Orders Medications Ordered That Kaushal ht Not Have Been Administered Count Last Ordered Date First Ordered Date Carrier Fluids for Secondary Infusion - 0.9% Sodium Chloride 1 05/18/2023 Nursing Count Last Ordered Date First Orde red Date HEIGHT AND WEIGHT 1 05/18/2023 NURSING COMMUNICATION 1 05/18/2023 ONCBCN PROVIDER COMMUNICATION 1 1 3 VITAL SIGNS INTRA-INFUSION 1 05/18/2023 documented in this encounter Care Teams Pipe Foreman Relationship Specialty Start Date End Date Tae Mcfarland MD [address] [place] [address] PCP - General 06/18/20 documented as of this encounter
--- OUTSIDE RECORDS SUMMARY | 2024-06-10 07:03 | XMS_ITS | Encounter Summary ---
Author Organization [facility] Medical Group Address [address] [facility] [address] [place] [address] Care Team Providers Care Rolled Seat Trimmer Name Role Phone Tae Mcfarland MD Primary Care Provide r Reason for Referral * MRI/CAT/PET Scan (Routine) - Closed Specialty Diagnoses / Procedures Referred By Contac t Referred To Contact Radiology Diagnoses Migraine without status migrainosus, not intractable, unspecified migraine type Procedures MRI Brain WO Contrast Peggy Coffman NP Phone: tel: fax: [facility] [address] [place] [phone] Referral ID Status Reason Start Date Expiration Date Visits Re quested Visits Authorized [id number] Closed 10/30/2022 01/04/2023 1 1 Reason for Visit * Reason Comments Migraine New patient Encounter Details Date Type Department Care Team (Late st Contact Info) Description 10/30/2022 10:00 AM CDT Office Visit [facility] Medical [facility] Neurology [address] [facility] [address] [place] [id number] Peggy Coffman NP [address] [id number] Migraine without status migrainosus, not intractable, unspecified migraine type (Primary Dx) Social History Tobacco Use Types Packs/Day Years Used Date Smoking Tobacco: Former Smokeless Tobacco: Never Tobacco Cessation:Counseling Given: Not Answered Alcohol Use Standard Drinks/Week Comments Yes 1 (1 standard drink = 0.6 oz pur e alcohol) Comments Unknown Sex and Gender Information Value Date Recorded Sex Assigned at Not on file 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 Gender Identity Not on file Sexual Orientation Not on file documented as of this encounter Last Filed Vital Signs Vital Sign Reading Time Taken Comments Blood Pressure 112/68 10/30/2022 10:09 AM CDT Pulse 75 10/30/2022 10:09 AM CDT Temperature 36.6 ??C (97.8 ??F) 10/30/2022 10:09 AM C DT Respiratory Rate 20 10/30/2022 10:09 AM CDT Oxygen Saturation 94% 10/30/2022 10:09 AM CDT Inhaled Oxygen Concentration - - Weight 64.6 kg (142 lb 6.4 oz) 10/30/2022 10:09 AM CDT Height 157.5 cm (5' 2 ) 10/30/2022 10:09 AM CDT Body Mass Index 26.05 10/30/2022 10:09 AM CDT documented in this encounter Ordered Prescriptions Prescription Sig Dispense Quantity Refills Last Filled Start Date End Date ubrogepant (Ubrelvy) 100 mg tablet Take 1 tablet (100 mg total) by mouth once as needed for migraine May repeat dose once in 2 hours if no relief. Do not exceed 2 doses in 24 hours. 10 tablet 11 10/30/2022 4 atogepant (Qulipta) 60 mg tablet Take 60 mg by mouth daily 30 tablet 11 10/30/2022 4 documented in this encounter Progress Notes * Peggy Coffman NP - 10/30/2022 10:00 AM CDT Images from the original note were not included. Karon Gaviria is being seen as a new consult at the request of Tae Mcfarland MD For migraine Assessments and Plan 1. Migraine headaches Karon has a longstanding history of migraine headaches. She has worsening headaches with new symptoms including lightheaded/dizziness following a fall in May 2021 likely representing postconcussion or posttraumatic headache. Medications overuse headaches are likely contributing. I have discussed increasing doses of her current therapy, but Karon would prefer to trial an additional migraine preventative since her current regimen has not been effective. Plan: -brain MRI -continue amitriptyline 25 mg nightly -continue propranolol 10 mg b.i.d. -continue Topamax 50 mg b.i.d. -start Qulipta 60 mg daily -start Ubrelvy 100 mg p.r.n. for rescue therapy -patient educated on overuse/rebound headaches and will decrease OTC Tylenol -follow-up in 6 months or sooner if needed History of Present Illness: Onset: 14 years old; worsening since May 2021 Frequency: Daily headaches; migraine headaches twice weekly Localization: Right frontal radiating to the vertex and posterior neck Associated symptoms: Photophobia, phonophobia, dizziness, tearing, nausea, blurry vision Triggers: None known Narrative: Karon is a 62-year-old female who presents to the office today as a new patient for evaluation for migraine headaches. She reports a longstanding history of migraine headaches 14 years old. Previously her migraine headaches have been well controlled on Topamax and amitriptyline. She reports approximately 2 migraines monthly in the past. However, she suffered a fall with LOC in May 2021 requiring right eyebrow sutures. She reports daily headaches since this fall. She has at least a mild tension- type headache daily. She reports migraine headaches twice weekly. Her PCP started her on propranolol 10 mg b.i.d. and she reports no improvement in her symptoms. She takes Imitrex 50 mg p.r.n.. She often takes up to 3-4 doses with minimal improvement. She uses this approximately 2-3 times weekly. She takes Tylenol multiple times daily. Her migraines can last 24-48 hours. They can wake her out of her sleep. She has new symptoms including dizziness and lightheadedness. She reports lightheadedness when leaning forward to pick something up as well as dizziness with her headaches. She denies migraine aura. Head CT (05/2021): Periorbital soft tissue swelling on the right as evidence of contusion or hematoma, no acute intracranial findings Review of Systems CONSTITUTIONAL: Positive for fatigue. Negative for weight change, fever, EYES: Negative for Eye disease/injury, glasses/contact lenses, blurred/double vision, glaucoma ENT: Positive for tinnitus, earaches/drainage. Negative for hearing loss, sinus problems, nose bleeds, mouth sores, bleeding gums, bad breath/bad taste, sore throat/voice change, swollen glands in neck CARDIOVASCULAR: Negative for Heart trouble, chest pains, sudden heartbeat changes, extremity swelling RESPIRATORY: Negative for Coughing, spitting up blood, shortness of breath, asthma/wheezing GASTROINTESTINAL: Positive for loss of appetite, nausea/vomiting, frequent diarrhea stomach pain. Negative for change in bowel movements, painful bowel movements/constipation, blood in stool GENITOURINARY: Negative for frequent urination, painful/burning urination, blood in urine, change in force or strain when urinating, incontinence/dribbling, kidney stones, sexual dysfunction MUSCULOSKELETAL: Negative for joint pain, joint stiffness/swelling, weakness of muscles/joints, muscle pain/cramps, back pain, cold extremities, difficulty walking SKIN: Positive for change in hair/nails. Negative for Rashes/itching, change in skin color, varicose veins NEUROLOGICAL: Positive for headaches, lightheaded/dizziness, numbness/tingling. Negative for convulsions/seizures, tremors, paralysis, stroke PSYCHIATRIC: Positive for sleep problems. Negative for memory loss/confusion, nervousness, depression ENDOCRINE: Positive for thyroid disease, heat/cold intolerance, dry skin. Negative for glandular/hormone problem, excessive thirst/urination HEMATOLOGIC/LYMPHATIC: Positive for easy bruising/bleeding. Negative for Slow healing, anemia, phlebitis, past transfusion, enlarged glands Past Medical History: Diagnosis Date Crohn's disease (CMS/HCC) Hypertension Migraines PONV (postoperative nausea and vomiting) Thyroid disease Past Surgical History: Procedure Laterality Date CHOLECYSTECTOMY HERNIA REPAIR HYSTERECTOMY Family History Problem Relation Age of Onset Hypertension Mother Family history of hypertension - (Added by TW Conv) Heart disease Mother Family history of cardiac disorder - (Added by TW Conv) Arthritis Mother Family history of arthritis - (Added by TW Conv) Hypertension Father Family history of hypertension - (Added by TW Conv) Heart disease Father Family history of cardiac disorder - (Added by TW Conv) Social History Tobacco Use Smoking status: Former Smokeless tobacco: Never Substance and Sexual Activity Drug use: No Sexual activity: Defer Alcohol Use: Not on file Allergies Allergen Reactions Codeine Other (See comments) Reaction: hives, , Current Outpatient Medications Medication Sig Dispense Refill amitriptyline (ELAVIL) 25 mg tablet Take 25 mg by mouth nightly. amLODIPine (NORVASC) 5 mg tablet Take 5 mg by mouth corrective therapy aide before breakfast. dicyclomine (BENTYL) 20 mg tablet Take 20 mg by mouth every 6 (six) hours. hydroCHLOROthiazide (HYDRODIURIL) 25 mg tablet Take 25 mg by mouth corrective therapy aide before breakfast. levothyroxine sodium (TIROSINT) 50 mcg capsule 125 mcg corrective therapy aide before breakfast. losartan (COZAAR) 50 mg tablet Take 50 mg by mouth corrective therapy aide before breakfast. meloxicam (MOBIC) 7.5 mg tablet Take 1 tablet (7.5 mg total) by mouth 2 (two) times a day. 60 tablet 2 topiramate (TOPAMAX) 50 mg tablet Take 50 mg by mouth 2 (two) times a day. zolpidem (AMBIEN) 5 mg tablet Take 10 mg by mouth nightly as needed for sleep. No current facility-administered medications for this visit. Physical Exam Neurological Exam Mental Status Awake and alert. Oriented to person, place, time and situation. Recent and remote memory are intact. Speech is normal. Language is fluent with no aphasia. Attention and concentration are normal. Fundof knowledge is appropriate for level of education. Apraxia absent. Cranial Nerves CN II: Right visual acuity: Normal. Left visual acuity: Normal. Visual to full to confrontation. CN III, IV, : Extraocular movements intact bilaterally. Normal lids and orbits bilaterally. Pupils equal round and reactive to light bilaterally. CN V: Facial sensation is normal. CN VII: Full and symmetric facial movement. CN VIII: Hearing is normal. CN IX, X: Palate elevates symmetrically. Normal gag reflex. CN XI: Shoulder shrug strength is normal. CN XII: Tongue midline without atrophy or fasciculations. Motor Normal muscle bulk throughout. No fasciculations present. Normal muscle tone. No abnormal involuntary movements. Strength is 5/5 throughout all four extremities. Sensory Light touch is normal in upper and lower extremities. Reflexes Deep tendon reflexes are 2+ and symmetric in all four extremities. Coordination Wnsopk-of-cikz, rapid alternating movements and srej-qh-qddy normal bilaterally without dysmetria. Gait Casual gait is normal including stance, stride, and arm swing. My total encounter time on 10/30/2022 was 45 minutes which was spent in the activities documented inthe note. This includes time spent prior to the visit and after the visit in direct care of the patient. This time does not include time spent in any separately reportable services. Stephanie Coffman DNP, COMPUTER MECHANIC-C [facility] Neurology at [place] [phone] cc:Tae Mcfarland MD documented in this encounter Plan of [...] 10:16 AM - Electronically signed by ??Koko TORRES D: ??11/28/2022 10:16 AM T: Report ID: [id number] Reading Location: ??[id number] Procedure Note Koko Floyd MD - 11/28/2022 EXAM DESCRIPTION: MRI BRAIN WO CONTRAST REASON FOR STUDY: Headache, new or worsening (Age >= 50y) Fell and struck head in May 2021, right orbital headaches radiatingto the back of the skull since the fall. No surgery. TECHNIQUE: Multiplanar imaging includes non-contrasted T1, T2, FLAIR, and diffusion with ADC map sequences. Additional sequence(s) sensitive [employer]. Images stored on PACS. COMPARISON: 05/27/2021 head [...] 10:16 AM - Electronically signed by Koko TORRES T: Report ID: [id number] Reading Location: [id number] Peggy Coffman VOLLEYBALL COACH IMG MRI PROCEDURES Final R esult documented in this encounter Visit Diagnoses Diagnosis Migraine without status migrainosus, not intractable, unspecified migraine type- Primary Migraine without status migrainosus, not intractable, unspecified migraine type documented in this encounter Historical Medications * This list may reflect changes made after this encounter. zolpidem (AMBIEN) 10 mg tablet Take 1 tablet (10 mg total) by mouth nightly as needed levothyroxine (SYNTHROID) 100 mcg tablet Take 1 tablet (100 mcg total) by mouth daily 10/02/2022 hydroCHLOROthiaz kleber (HYDRODIURIL) 25 mg tablet Take 1 tablet (25 mg total) by mouth daily amLODIPine (NORVASC) 5 mg tablet Take 1 tablet (5 mg total) by mouth daily amitriptyline (ELAVIL) 25 mg tablet Take 1 tablet (25 mg total) by mouth daily zaleplon (SONATA) 5 mg capsule 11/25/2021 venlafaxine (EFFEXOR) 37.5 mg tablet Take 1 tablet (37.5 mg total) by mouth daily sertraline (ZOLOFT) 50 mg tablet Take 1 tablet (50 mg total) by mouth daily 08/27/2022 QUEtiapine (SEROquel) 50 mg tablet Take 1 tablet (50 mg total) by mouth nightly 10/24/2022 QUEtiapine (SEROquel) 50 mg tablet Take 1 tablet (50 mg total) by mouth daily propranoloL (INDERAL) 10 mg tablet Take 1 tablet (10 mg total) by mouth every 12 (twelve) hours 09/16/2022 ondansetron (ZOFRAN) 4 mg tablet Take 1 tablet (4 mg total) by mouth 02/09/2021 metoprolol (LOPRESSOR) 100 mg tablet Take 1 tablet (100 mg total) by mouth daily metFORMIN (GLUCOPHAGE) 500 mg tablet Take 1 tablet (500 mg total) by mouth lisinopriL (PRINIVIL,ZESTRI L) 40 mg tablet Take 1 tablet (40 mg total) by mouth daily gabapentin (NEURONTIN) 300 mg capsule Take 1 capsule (300 mg total) by mouth 3 (three) times a day DULoxetine DR (CYMBALTA) 60 mg capsule 12/01/2021 eszopiclone (LUNESTA) 2 mg tablet 11/11/2021 cholecalciferol (VITAMIN D-3) 25 mcg (1,000 unit) tablet Take 1 tablet (1,000 Units total) by mouth daily cephalexin (KEFLEX) 500 mg capsule Take 1 capsule (500 mg total) by mouth every 12 (twelve) hours 05/09/2021 atorvastatin (LIPITOR) 20 mg tablet Take 1 tablet (20 mg total) by mouth ALPRAZolam (XANAX) 0.5 mg tablet TAKE 1 TABLET BY MOUTH THREE TIMES A DAY NEEDED FOR ANXIETY 10/25/2022 ALPRAZolam (XANAX) 0.5 mg tablet Take 1 tablet (0.5 mg total) by mouth 3 (three) times a day as needed 08/09/2021 multivit with min-folic acid (Adult One Daily Multivitamin) 0.4 mg tablet Take 1 tablet by mouth 3 (three) times a day with meals ibuprofen, bulk, 100 % powder Take by mouth SUMAtriptan (IMITREX) 50 mg tablet TAKE 1 TAB AT ONSET OF HEADACHE IF NO RELIEF MAY REPEAT 1 TAB AFTER AT LEAST 2 HRS MAX=4 TABS/DAY 08/01/2022 11/27/2022 added in this encounter Orders Outpatient Referral Count Last Ordered Date Fir st Ordered Date AMB REFERRAL TO NEUROLOGY 1 10/30/2022 documented in this encounter Care Teams Rolled Seat Trimmer Relationship Specialty Start Date End Date Tae Mcfarland MD [address] [place], [place] [id number] PCP - General 06/18/20 documented as of this encounter
--- OUTSIDE RECORDS SUMMARY | 2024-06-10 07:03 | XMS_ITS | Encounter Summary ---
Author Organization [facility] Medical [facility] Address [address] [facility] [address] [place] [address] Care Team Providers Care Warehouse Consultant Name Role Phone Tae Mcfarland MD Primary Care Provide r Reason for Visit * Reason Onset Date Comments Test Results 12/04/2022 MRI results Encounter Details Date Type Department Care Team (Late st Contact Info) Description 12/04/2022 Telephone [facility] Medical [facility] Neurology [address] [facility] [address] [place] [address] Peggy Coffman NP [address] [facility] [address] [place] [address] Test Results (MRI results) Social History Tobacco Use Types Packs/Day Years Used Date Smoking Tobacco: Former Smokeless Tobacco: Never Alcohol Use Standard Drinks/Week Comments Yes 1 (1 standard drink = 0.6 oz pur e alcohol) Comments Unknown Sex and Gender Information Value Date Recorded Sex Assigned at Not on file 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 Read 12/21/22 note by LAURIE Coffman to pt. Pt stated will come by office today or tomorrow to picket [employer] samples. Pt stated scheduled for MRI on . * Telephone Encounter - Peggy Coffman NP - 12/21/2022 4:29 PM CDT Ok, please continue with plan for repeat brain MRI. Please see if she is using the Ubrelvy. If it is not effective, she can come to the office and get Nurtec samples. * Telephone Encounter - Nely Javed MA - 12/20/2022 11:08 AM CDT Patient called the office today with new symptoms. Patient states at dinner last night she started experiencing blurred vision but mostly in the right eye. Patient states that is something new for her being that she has been having a migraine that has not went away. Please advsie. * Telephone Encounter - Nely Javed MA - 12/04/2022 2:24 PM CDT Patient was advised of the recent MRI results and that we will have the patient to repeat the MRI with Contrast this time and also add the MRI of the Cervical Neck patient confirmed understanding * Telephone Encounter - Nely Javed MA - 12/04/2022 2:24 PM CDT ----- Message from Peggy Coffman NP sent at 12/01/2022 5:22 PM CDT ----- Please let Karon know there is a [...] on filedocumented in this encounter Care Teams Warehouse Consultant Relationship Specialty Start Date End Date Tae Mcfarland MD [address] [place] [address] PCP - General 06/18/20 documented as of this encounter
--- OUTSIDE RECORDS SUMMARY | 2024-06-10 07:03 | XMS_ITS | Encounter Summary ---
Author Organization [facility] Healthcare Address [address] [place] [address] Care Team Providers Care Machine Operator Hay Stacker Name Role Phone Tae Mcfarland MD Primary Care Provide r Reason for Visit * Reason Onset Date Comments Prior Auth 05/08/2023 Qulipta 60 Encounter Details Date Type Department Care Team (Late st Contact Info) Description 05/08/2023 Telephone [facility] Medical Group Neurology [address] [phone] Peggy Coffman, DRAW PRESS OPERATOR [address] [address] Prior Auth (Qulipta 60) Social History Tobacco Use Types Packs/Day Years Used Date Smoking Tobacco: Former Smokeless Tobacco: Never Alcohol Use Standard Drinks/Week Comments Yes 1 (1 standard drink = 0.6 oz pur e alcohol) Comments Unknown Sex and Gender Information Value Date Recorded Sex Assigned at Not on file 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:53 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 Gender Identity Not on file Sexual Orientation Not on file documented as of this encounter Miscellaneous Notes * Telephone Encounter - Nely Javed MA - 05/08/2023 1:29 PM CST Juni submitted and approved for Qulipta 60mg through cover meds and faxed to [facility] [address] IN [place], [place] - [address] , [facility] [address] ET DISPENSER CHANGER documented in this encounter Plan of Treatment Not on file documented as of this encounter Visit Diagnoses Not on filedocumented in this encounter Care Teams Machine Operator Hay Stacker Relationship Specialty Start Date End Date Tae Mcfarland MD [address] [place] [address] PCP - General 06/18/20 documented as of this encounter
--- OUTSIDE RECORDS SUMMARY | 2024-06-10 07:03 | XMS_ITS | Encounter Summary ---
Author Organization [facility] Healthcare Address [address] [place] [address] Care Team Providers Care Research Scientist Name Role Phone Tae Mcfarland MD Primary Care Provide r Reason for Visit * Reason Comments OP Infusion * Episode Based Medications (Routine) - Closed Specialty Diagnoses / Procedures Referred By Contac t Referred To Contact Diagnoses Crohn's disease of large intestine without complication (CMS/HCC) (HCC) Myles Mahajan, DO [address] [place] [address] Phone: tel: fax: [facility] [address] [place] [phone] Phone: tel: fax: Referral ID Status Reason Start Date Expiration Date Visits Re quested Visits Authorized [id number] Closed 10/04/2022 11/03/2023 99 99 Encounter Details Date Type Department Care Team (Late st Contact Info) Description 03/02/2023 8:00 AM CDT Infusion [facility] [address] [place] [phone] Crohn's disease of large intestine without complication (CMS/HCC) (HCC) (Primary Dx) Social History Tobacco Use Types Packs/Day Years Used Date Smoking Tobacco: Former Smokeless Tobacco: Never Alcohol Use Standard Drinks/Week Comments Yes 1 (1 standard drink = 0.6 oz pur e alcohol) Comments Unknown Sex and Gender Information Value Date Recorded Sex Assigned at Not on file 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 Gender Identity Not on file Sexual Orientation Not on file documented as of this encounter Last Filed Vital Signs Vital Sign Reading Time Taken Comments Blood Pressure 99/63 03/02/2023 8:11 AM CDT Pulse 77 03/02/2023 8:11 AM CDT Temperature 37 ??C (98.6 ??F) 03/02/2023 8:11 AM CDT Respiratory Rate 16 03/02/2023 8:11 AM CDT Oxygen Saturation 98% 03/02/2023 8:11 AM CDT Inhaled Oxygen Concentration - - Weight 59.8 kg (131 lb 14.4 oz) 03/02/2023 8:11 AM CDT Height - - Body Mass Index 24.12 10/30/2022 10:09 AM CDT documented in this encounter Nursing Notes * Melissa Leal RN - 03/02/2023 8:00 AM CDT Pt arrives for Remicade infusion. Pt denies recent fevers, infections and abx use. PIV started, (+)blood return. Premeds administered. Infusion titrated per AUG. Pt tolerated infusion. PIV removed, pressure dressing applied. Appts made and schedule confirmed. Pt D/C ambulatory. documented in this [...] 650 mg 650 mg, oral, Once, On Sun03/02/23 at 0845, For 1 dose, Give 30 minutes prior to infusion for infusion reaction prophylaxis.Indications:Crohn's disease of large intestine without complication (CMS/HCC) (HCC) Given 03/02/2023 8:17 AM CDT 650 mg Carrier Fluids for Secondary Infusion - 0.9% Sodium Chloride 30 mL, intravenous, As needed, For priming tubing and/or flushing, Starting on Sun03/02/23 at 0812, 0-250ml/hr to flush line after IV infusions when no maintenance IV ordered. Infuse 30mL at the same rate as the secondary infusion. Run as primary IV, not intended for KVOIndications:Crohn's disease of large intestine without complication (CMS/HCC) ([facility]) Given 03/02/2023 8:18 AM CDT 30 mL diphenhydrAMINE (BENADRYL) tab/cap 25 mg 25 mg, oral, Once, On Sun03/02/23 at 0845, For 1 dose, Give 30 minutes prior to infusion for infusion reaction prophylaxis.Indications:Crohn's disease of large intestine without complication (CMS/HCC) ([facility]) Given 03/02/2023 8:17 AM CDT 25 mg inFLIXimab (REMICADE) 600 mg in sodium chloride 0.9% 250 mL IVPB 600 mg (rounded from 598 mg = 10 mg/kg ? 59.8 kg), intravenous, Once, On Sun03/02/23 at 0915, For 1 dose, MAINTENANCE DOSE: [...] of large intestine without complication (CMS/HCC) ([facility]) New Bag 03/02/2023 9:00 AM CDT 600 mg documented in this encounter Orders Nursing Count Last Ordered Date First Orde red Date HEIGHT AND WEIGHT 1 03/02/2023 NURSING COMMUNICATION 1 03/02/2023 VITAL SIGNS INTRA-INFUSION 1 03/02/2023 documented in this encounter Care Teams Research Scientist Relationship Specialty Start Date End Date Tae Mcfarland MD [address] [place] [address] PCP - General 06/18/20 documented as of this encounter
--- OUTSIDE RECORDS SUMMARY | 2024-06-10 07:03 | XMS_ITS | Encounter Summary ---
Author Organization [facility] Healthcare Address [address] [place] [address] Care Team Providers Care Financial Services Sales Representative Name Role Phone Tae Mcfarland MD Primary Care Provide r Encounter Details Date Type Department Care Team (Late st Contact Info) Description 02/02/2023 7:45 AM CDT Lab [facility] Lab [facility] [place] [phone] Crohn's disease of large intestine without complication (CMS/HCC) (HCC) Social History Tobacco Use Types Packs/Day Years Used Date Smoking Tobacco: Former Smokeless Tobacco: Never Alcohol Use Standard Drinks/Week Comments Yes 1 (1 standard drink = 0.6 oz pur e alcohol) Comments Unknown Sex and Gender Information Value Date Recorded Sex Assigned at Not on file 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:53 AM STEEL ROLLER Gender Identity Not on file Sexual Orientation Not on file documented as of this encounter Plan of Treatment Not on file documented as of this encounter Procedures Procedure Name Priority Date/Time Associated Diagnosis Comments TB TEST, QUANTIFERON GOLD Routine 02/02/2023 7:58 AM CDT Crohn's disease of large intestine without complication (CMS/HCC) (HCC) documented in this encounter Results * TB test, quantiferon gold (02/02/2023 7:58 AM CDT) Quantiferon TB Gold Negative Negative [facility] Comment: No interferon-gamma response to M. tuberculosis [...] is an Interferon-gamma level <0.35 IU/mL. TB-Nil 0.01 IUnits/mL [facility] TB2-Nil 0.01 IUnits/mL [facility] Mitogen-Nil 9.95 IUnits/mL [facility] NIL 0.05 IUnits/mL [facility] Comment: Test Performed by: [facility] [address] [place] [address] Recovery Agent: Albert Tirado M.D. Ph.D.; CLIA# [id number] Blood 02/02/2023 7:58 AM CDT 02/02/2023 8:32 AM CDT us Myles Mahajan DO LAB BLOOD ORDERABLES Final Res [facility] [address] Department [place] [address] documented in this encounter Visit Diagnoses Diagnosis Crohn's disease of large intestine without complication (CMS/HCC) (HCC) documented in this encounter Care Teams Financial Services Sales Representative Relationship Specialty Start Date End Date Tae Mcfarland MD [address] [place] [address] PCP - General 06/18/20 documented as of this encounter
--- OUTSIDE RECORDS SUMMARY | 2024-06-10 07:03 | XMS_ITS | Encounter Summary ---
Author Organization [facility] Healthcare Address [address] [place] [address] Care Team Providers Care Framer Name Role Phone Tae Mcfarland MD Primary Care Provide r Reason for Visit * Reason Comments OP Infusion * Episode Based Medications (Routine) - Closed Specialty Diagnoses / Procedures Referred By Contac t Referred To Contact Diagnoses Crohn's disease of large intestine without complication (CMS/HCC) (HCC) Myles Mahajan, DO [address] [address] Phone: tel: fax: [facility] [address] [place] [phone] Phone: tel: fax: Referral ID Status Reason Start Date Expiration Date Visits Re quested Visits Authorized [id number] Closed 10/04/2022 11/03/2023 99 99 Encounter Details Date Type Department Care Team (Late st Contact Info) Description 06/15/2023 9:00 AM ASSEMBLER SEMICONDUCTOR Infusion [facility] [address] [place] [phone] Crohn's disease of large intestine without complication (CMS/HCC) (HCC) (Primary Dx) Social History Tobacco Use Types Packs/Day Years Used Date Smoking Tobacco: Former Smokeless Tobacco: Never Alcohol Use Standard Drinks/Week Comments Yes 1 (1 standard drink = 0.6 oz pur e alcohol) Comments Unknown Sex and Gender Information Value Date Recorded Sex Assigned at Not on file 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:53 AM ASSEMBLER SEMICONDUCTOR Gender Identity Not on file Sexual Orientation Not on file documented as of this encounter Last Filed Vital Signs Vital Sign Reading Time Taken Comments Blood Pressure 99/70 06/15/2023 9:09 AM ASSEMBLER SEMICONDUCTOR Pulse 80 06/15/2023 9:09 AM ASSEMBLER SEMICONDUCTOR Temperature 36.1 ??C (96.9 ??F) 06/15/2023 9:09 AM CS T Respiratory Rate 18 06/15/2023 9:09 AM ASSEMBLER SEMICONDUCTOR Oxygen Saturation 100% 06/15/2023 9:09 AM ASSEMBLER SEMICONDUCTOR Inhaled Oxygen Concentration - - Weight 58.8 kg (129 lb 9.6 oz) 06/15/2023 9:09 A M ASSEMBLER SEMICONDUCTOR Height 156.2 cm (5' 1.5 ) 06/15/2023 9:09 AM ASSEMBLER SEMICONDUCTOR Body Mass Index 24.09 06/15/2023 9:09 AM ASSEMBLER SEMICONDUCTOR documented in this encounter Progress Notes * Christine Denton RP - 06/15/2023 9:00 AM CST Pharmacy Note - Biotherapy Dose Rounding Infliximab or infliximab biosimilar has been rounded from 580 mg ( 10 mg/kg) to 600 mg per the MTS policy approved by [facility] Pharmacy and Therapeutics committee. [facility] Pharmacy and Therapeutics committee as approved the following: ?? 10% dose rounding policy for biotherapy agents to the nearest vial size Christine Denton RPh 06/15/23 9:10 AM MBLER SEMICONDUCTOR documented in this encounter Nursing Notes * Jai Botello, RN - 06/15/2023 9:00 AM CST Pt arrived for Remicade infusion. Last TB test was negative on 02/02/23. Pt denies recent abx use, or s/sx of an infection. She has had a recent fall without injury. Pt states her PCP took her off a BP med yesterday due to her BP being low and possibly causing her fall. PIV started with good blood return. Infusion titrated per orders. Pt tolerated infusion well without s/sx of a reaction. PIV removed and dressing applied. Schedule confirmed. Pt ambulatory at d/c. MBLER SEMICONDUCTOR MBLER SEMICONDUCTOR documented in this encounter Plan of Treatment Not on file documented as of this encounter Visit Diagnoses Diagnosis Crohn's disease of large intestine without complication (CMS/HCC) (HCC)- Primary documented in this encounter Administered Medications Inactive Administered Medications - up to 3 most recent administrations Medication Order MAR Action Action Date Dose Rate Site acetaminophen (TYLENOL) tablet 650 mg 650 mg, oral, Once, On Sun06/15/23 at 0945, For 1 dose, Give 30 minutes prior to infusion for infusion reaction prophylaxis.Indications:Crohn's disease of large intestine without complication (CMS/HCC) (HCC) Given 06/15/2023 9:12 AM ASSEMBLER SEMICONDUCTOR 650 mg diphenhydrAMINE (BENADRYL) tab/cap 25 mg 25 mg, oral, Once, On Sun06/15/23 at 0945, For 1 dose, Give 30 minutes prior to infusion for infusion reaction prophylaxis.Indications:Crohn's disease of large intestine without complication (CMS/HCC) ([facility]) Given 06/15/2023 9:12 AM ASSEMBLER SEMICONDUCTOR 25 mg inFLIXimab (REMICADE) 600 mg in sodium chloride 0.9% 250 mL IVPB 600 mg, intravenous, Once, On Sun06/15/23 at 1015, For 1 dose, MAINTENANCE DOSE: [...] mg per the MTS policy approved by [facility] Pharmacy and Therapeutics committee. [facility] Pharmacy and Therapeutics committee as approved the following: ? 10% dose rounding policy for biotherapy agents to the nearest vial size Christine Denton, [facility] 06/15/23 9:10 AM Use 1.2 micron filter or less, low-sorbing, low protein binding.Indications:Crohn's disease of large intestine without complication (CMS/HCC) (HCC) New Bag 06/15/2023 9:34 AM ASSEMBLER SEMICONDUCTOR 600 mg documented in this encounter Orders Medications Ordered That Kaushal ht Not Have Been Administered Count Last Ordered Date First Ordered Date Carrier Fluids for Secondary Infusion - 0.9% Sodium Chloride 1 06/15/2023 Nursing Count Last Ordered Date First Orde red Date HEIGHT AND WEIGHT 1 06/15/2023 NURSING COMMUNICATION 1 06/15/2023 VITAL SIGNS INTRA-INFUSION 1 06/15/2023 documented in this encounter Care Teams Framer Relationship Specialty Start Date End Date aTe Mcfarland MD [address] [place] [address] PCP - General 06/18/20 documented as of this encounter
--- OUTSIDE RECORDS SUMMARY | 2024-06-10 07:03 | XMS_ITS | Encounter Summary ---
Author Organization [facility] Healthcare Address [address] [place] [address] Care Team Providers Care Golf Coach Name Role Phone Tae Mcfarland MD Primary Care Provide r Reason for Visit * Episode Based Medications (Routine) - Closed Specialty Diagnoses / Procedures Referred By Contac t Referred To Contact Diagnoses Crohn's disease of large intestine without complication (CMS/HCC) (HCC) Myles Mahajan, DO [address] [place] [address] Phone: tel: fax: [facility] [address] [place] [phone] Phone: tel: fax: Referral ID Status Reason Start Date Expiration Date Visits Re quested Visits Authorized [id number] Closed 10/04/2022 11/03/2023 99 99 Encounter Details Date Type Department Care Team (Late st Contact Info) Description 01/05/2023 8:45 AM CDT Infusion [facility] [address] [phone] Crohn's disease of large intestine [...] on file 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:53 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 Gender Identity Not on file Sexual Orientation Not on file documented as of this encounter Last Filed Vital Signs Vital Sign Reading Time Taken Comments Blood Pressure 125/76 01/05/2023 8:40 AM CDT Pulse 71 01/05/2023 8:40 AM CDT Temperature 36.6 ??C (97.8 ??F) 01/05/2023 8:40 AM CD T Respiratory Rate 16 01/05/2023 8:40 AM CDT Oxygen Saturation 96% 01/05/2023 8:40 AM CDT Inhaled Oxygen Concentration - - Weight 59 kg (130 lb) 01/05/2023 8:40 AM CDT Height - - Body Mass Index 23.78 10/30/2022 10:09 AM CDT documented in this encounter Progress Notes * Kelechi Braswell RPh - 01/05/2023 8:45 AM CDT Pharmacy Note - Biotherapy Dose Rounding Infliximab or infliximab biosimilar has been rounded from 590 mg ( 10 mg/kg) to 600 mg per the MTS policy approved by [facility] Pharmacy and Therapeutics committee. [facility] Pharmacy and Therapeutics committee as approved the following: ?? 10% dose rounding policy for biotherapy agents to the nearest vial size Kelechi Braswell RPh 01/05/23 8:43 AM documented in this encounter Nursing Notes * Mark Sibley, RN - 01/05/2023 8:45 AM CDT Ambulatory to infusion center for Remicade, denies any recent infections, fevers, antibiotic therapy, or colds. TB neg 02/22/22. Premeds given, infusion tolerated well. Discharged home in stable condition with follow up appt scheduled. PT aware TB text to be done with next visit. Insurance will be angi in the next few months, per Naty KELLY pt to contact Dr Mahajan's office when she receives new cards, and to confirm that they evaluate coverage prior to next visit. Pt verbalizes understanding. documented in this encounter Plan of Treatment Not on file documented as of this encounter Visit Diagnoses Diagnosis Crohn's disease of large intestine without complication (CMS/HCC) (HCC)- Primary documented in this encounter Administered Medications Inactive Administered Medications - up to 3 most recent administrations Medication Order MAR Action Action Date Dose Rate Site acetaminophen (TYLENOL) tablet 650 mg 650 mg, oral, Once, On Sun01/05/23 at 0915, For 1 dose, Give 30 minutes prior to infusion for infusion reaction prophylaxis.Indications:Crohn's disease of large intestine without complication (CMS/HCC) (HCC) Given 01/05/2023 8:50 AM CDT 650 mg Carrier Fluids for Secondary Infusion - 0.9% Sodium Chloride 30 mL, intravenous, As needed, For priming tubing and/or flushing, Starting on Sun01/05/23 at 0908, 0-250ml/hr to flush line after IV infusions when no maintenance IV ordered. Infuse 30mL at the same rate as the secondary infusion. Run as primary IV, not intended for KVOIndications:Crohn's disease of large intestine without complication (CMS/HCC) (HCC) Given 01/05/2023 8:58 AM CDT 30 mL diphenhydrAMINE (BENADRYL) tab/cap 25 mg 25 mg, oral, Once, On Sun01/05/23 at 0915, For 1 dose, Give 30 minutes prior to infusion for infusion reaction prophylaxis.Indications:Crohn's disease of large intestine without complication (CMS/HCC) (HCC) Given 01/05/2023 8:50 AM CDT 25 mg inFLIXimab (REMICADE) 600 mg in sodium chloride 0.9% 250 mL IVPB 600 mg, intravenous, Once, On Sun01/05/23 at 0945, For 1 dose, MAINTENANCE DOSE: Begin 4 [...] the MTS policy approved by [facility] Pharmacy and Therapeutics committee. Use 1.2 micron filter or less, low-sorbing, low protein binding.Indications:Crohn's disease of large intestine without complication (CMS/HCC) (HCC) New Bag 01/05/2023 9:07 AM CDT 600 mg documented in this encounter Orders Nursing Count Last Ordered Date First Orde red Date HEIGHT AND WEIGHT 1 01/05/2023 NURSING COMMUNICATION 1 01/05/2023 ONCBCN PROVIDER COMMUNICATION 1 1 3 VITAL SIGNS INTRA-INFUSION 1 01/05/2023 documented in this encounter Care Teams Golf Coach Relationship Specialty Start Date End Date Tae Mcfarland MD [address] [place] [address] PCP - General 06/18/20 documented as of this encounter
--- OUTSIDE RECORDS SUMMARY | 2024-06-10 07:03 | XMS_ITS | Encounter Summary ---
Author Organization [facility] Healthcare Address [address] [place] [address] Care Team Providers Care Software Development Manager Name Role Phone Tae Mcfarland MD Primary Care Provide r Reason for Visit * Reason Comments OP Infusion * Episode Based Medications (Routine) - Closed Specialty Diagnoses / Procedures Referred By Contac t Referred To Contact Diagnoses Crohn's disease of large intestine without complication (CMS/HCC) (HCC) Myles Mahajan, DO [address] [address] Phone: tel: fax: [facility] [address] [place] [phone] Phone: tel: fax: Referral ID Status Reason Start Date Expiration Date Visits Re quested Visits Authorized [id number] Closed 03/23/2022 04/22/2023 99 99 Encounter Details Date Type Department Care Team (Late st Contact Info) Description 07/21/2022 8:30 AM RETAIL WIRELESS ASSOCIATE Infusion [facility] [address] [place] [phone] Crohn's disease of large intestine without complication (CMS/HCC) (HCC) (Primary Dx) Social History Tobacco Use Types Packs/Day Years Used Date Smoking Tobacco: Former Smokeless Tobacco: Never Alcohol Use Standard Drinks/Week Comments Yes 1 (1 standard drink = 0.6 oz pur e alcohol) Comments Unknown Sex and Gender Information Value Date Recorded Sex Assigned at Not on file 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:53 AM RETAIL WIRELESS ASSOCIATE Gender Identity Not on file Sexual Orientation Not on file documented as of this encounter Last Filed Vital Signs Vital Sign Reading Time Taken Comments Blood Pressure 107/70 07/21/2022 8:27 AM RETAIL WIRELESS ASSOCIATE Pulse 78 07/21/2022 8:27 AM RETAIL WIRELESS ASSOCIATE Temperature 36.4 ??C (97.5 ??F) 07/21/2022 8:27 AM CS T Respiratory Rate 16 07/21/2022 8:27 AM RETAIL WIRELESS ASSOCIATE Oxygen Saturation - - Inhaled Oxygen Concentration - - Weight 64.4 kg (142 lb) 07/21/2022 8:27 AM RETAIL WIRELESS ASSOCIATE Height - - Body Mass Index 25.97 05/27/2021 7:34 PM RETAIL WIRELESS ASSOCIATE documented in this encounter Progress Notes * Christine Denton [facility] - 07/21/2022 8:30 AM CST Pharmacy Note - Biotherapy [...] the nearest vial size Christine Denton RPh 07/21/22 8:36 AM [place] WIRELESS ASSOCIATE documented in this encounter Nursing Notes * Marry Carvajal RN - 07/21/2022 8:30 AM CST Pt here for remicade. VSS. Denies recent fevers, infections. C/o chronic diarrhea, nausea. Takes zofran for nausea w/ relief. IV placed, +blood return. Premeds given. Tolerated infusion. IV discontinued. Schedule provided. [place] WIRELESS ASSOCIATE documented in this encounter Plan of Treatment Not on file documented as of this encounter Visit Diagnoses Diagnosis Crohn's disease of large intestine without complication (CMS/HCC) (HCC)- Primary documented in this encounter Administered Medications Inactive Administered Medications - up to 3 most recent administrations Medication Order MAR Action Action Date Dose Rate Site acetaminophen (TYLENOL) tablet 650 mg 650 mg, oral, Once, On Sun07/21/22 at 0900, For 1 dose, Give 30 minutes prior to infusion for infusion reaction prophylaxis.Indications:Crohn's disease of large intestine without complication (CMS/HCC) ([facility]) Given 07/21/2022 8:35 AM RETAIL WIRELESS ASSOCIATE 650 mg Carrier Fluids for Secondary Infusion - 0.9% Sodium Chloride 30 mL, intravenous, As needed, For priming tubing and/or flushing, Starting on Sun07/21/22 at 0827, 0-250ml/hr to flush line after IV infusions when no maintenance IV ordered. Infuse 30mL at the same rate as the secondary infusion. Run as primary IV, not intended for KVOIndications:Crohn's disease of large intestine without complication (CMS/HCC) ([facility]) Given 07/21/2022 8:35 AM RETAIL WIRELESS ASSOCIATE 30 mL diphenhydrAMINE (BENADRYL) tab/cap 25 mg 25 mg, oral, Once, On Sun07/21/22 at 0900, For 1 dose, Give 30 minutes prior to infusion for infusion reaction prophylaxis.Indications:Crohn's disease of large intestine without complication (CMS/HCC) ([facility]) Given 07/21/2022 8:35 AM RETAIL WIRELESS ASSOCIATE 25 mg inFLIXimab (REMICADE) 700 mg in sodium chloride 0.9% 250 mL IVPB 700 mg, intravenous, Once, On Sun07/21/22 at 0930, For 1 dose, MAINTENANCE DOSE: [...] INFUSION. Use 1.2 micron filter or less, low-sorbing.Indications:Crohn's disease of large intestine without complication (CMS/HCC) (HCC) New Bag 07/21/2022 9:03 AM RETAIL WIRELESS ASSOCIATE 700 mg documented in this encounter Care Teams Software Development Manager Relationship Specialty Start Date End Date Tae Mcfarland MD [address] [place] [address] PCP - General 06/18/20 documented as of this encounter
--- OUTSIDE RECORDS SUMMARY | 2024-06-10 07:03 | XMS_ITS | Encounter Summary ---
Author Organization [facility] Healthcare Address [address] [place] [address] Care Team Providers Care Printing Plate Setter Name Role Phone Tae Mcfarland MD Primary Care Provide r Reason for Visit * Reason Comments OP Infusion * Episode Based Medications (Routine) - Closed Specialty Diagnoses / Procedures Referred By Contac t Referred To Contact Diagnoses Crohn's disease of large intestine without complication (CMS/HCC) (HCC) Myles Mahajan, DO [address] [place] [address] Phone: tel: fax: [facility] [address] [place] [phone] Phone: tel: fax: Referral ID Status Reason Start Date Expiration Date Visits Re quested Visits Authorized [id number] Closed 03/23/2022 04/22/2023 99 99 Encounter Details Date Type Department Care Team (Late st Contact Info) Description 08/18/2022 8:30 AM ASSISTANT PROFESSOR IN FAMILY STUDIES Infusion [facility] [address] [place] [phone] Crohn's disease of large intestine without complication (CMS/HCC) (HCC) (Primary Dx) Social History Tobacco Use Types Packs/Day Years Used Date Smoking Tobacco: Former Smokeless Tobacco: Never Alcohol Use Standard Drinks/Week Comments Yes 1 (1 standard drink = 0.6 oz pur e alcohol) Comments Unknown Sex and Gender Information Value Date Recorded Sex Assigned at Not on file 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:53 AM ASSISTANT PROFESSOR IN FAMILY STUDIES Gender Identity Not on file Sexual Orientation Not on file documented as of this encounter Last Filed Vital Signs Vital Sign Reading Time Taken Comments Blood Pressure 110/70 08/18/2022 8:31 AM ASSISTANT PROFESSOR IN FAMILY STUDIES Pulse 81 08/18/2022 8:31 AM ASSISTANT PROFESSOR IN FAMILY STUDIES Temperature 35.9 ??C (96.7 ??F) 08/18/2022 8:31 AM CS T Respiratory Rate 16 08/18/2022 8:31 AM ASSISTANT PROFESSOR IN FAMILY STUDIES Oxygen Saturation 99% 08/18/2022 8:31 AM ASSISTANT PROFESSOR IN FAMILY STUDIES Inhaled Oxygen Concentration - - Weight 64.6 kg (142 lb 6.4 oz) 08/18/2022 8:31 A M ASSISTANT PROFESSOR IN FAMILY STUDIES Height - - Body Mass Index 26.05 05/27/2021 7:34 PM ASSISTANT PROFESSOR IN FAMILY STUDIES documented in this encounter Progress Notes * Kelechi Braswell RPh - 08/18/2022 8:30 AM CST Pharmacy Note - Biotherapy Dose Rounding Infliximab or infliximab biosimilar has been rounded from 650 mg ( 10 mg/kg) to 700 mg per the MTS policy approved by [facility] Pharmacy and Therapeutics committee. [facility] Pharmacy and Therapeutics committee as approved the following: ?? 10% dose rounding policy for biotherapy agents to the nearest vial size Kelechi Braswell RPh 08/18/22 8:41 AM STANT PROFESSOR IN FAMILY STUDIES documented in this encounter Nursing Notes * Andrea Seay RN - 08/18/2022 8:30 AM CST Ambulatory to infusion center for Remicade, denies any recent infections, fevers, antibiotic therapy, or colds. TB neg as of 12/23/21 . Premeds given 30 minutes prior to infusion. PIV started, positive blood flow noted. Remicade infused and titrated per protocol without incident. Discharged home in stable condition with follow up appt scheduled. STANT PROFESSOR IN FAMILY STUDIES STANT PROFESSOR IN FAMILY STUDIES documented in this encounter Plan of Treatment Not on file documented as of this encounter Visit Diagnoses Diagnosis Crohn's disease of large intestine without complication (CMS/HCC) (HCC)- Primary documented in this encounter Administered Medications Inactive Administered Medications - up to 3 most recent administrations Medication Order MAR Action Action Date Dose Rate Site acetaminophen (TYLENOL) tablet 650 mg 650 mg, oral, Once, On Sun08/18/22 at 0915, For 1 dose, Give 30 minutes prior to infusion for infusion reaction prophylaxis.Indications:Crohn's disease of large intestine without complication (CMS/HCC) (HCC) Given 08/18/2022 8:35 AM ASSISTANT PROFESSOR IN FAMILY STUDIES 650 mg Carrier Fluids for Secondary Infusion - 0.9% Sodium Chloride 30 mL, intravenous, As needed, For priming tubing and/or flushing, Starting on Sun08/18/22 at 0832, 0-250ml/hr to flush line after IV infusions when no maintenance IV ordered. Infuse 30mL at the same rate as the secondary infusion. Run as primary IV, not intended for KVOIndications:Crohn's disease of large intestine without complication (CMS/HCC) (HCC) Given 08/18/2022 9:11 AM ASSISTANT PROFESSOR IN FAMILY STUDIES 30 mL diphenhydrAMINE (BENADRYL) tab/cap 25 mg 25 mg, oral, Once, On Sun08/18/22 at 0915, For 1 dose, Give 30 minutes prior to infusion for infusion reaction prophylaxis.Indications:Crohn's disease of large intestine without complication (CMS/HCC) (HCC) Given 08/18/2022 8:35 AM ASSISTANT PROFESSOR IN FAMILY STUDIES 25 mg inFLIXimab (REMICADE) 700 mg in sodium chloride 0.9% 250 mL IVPB 700 mg, intravenous, Once, On Sun08/18/22 at 0945, For 1 dose, MAINTENANCE DOSE: [...] biosimilar has been rounded from 650 mg (10 mg/kg) to 700 mg per the MTS policy approved by [facility] Pharmacy and Therapeutics committee. Use 1.2 micron filter or less, low-sorbing, low protein binding.Indications:Crohn's disease of large intestine without complication (CMS/HCC) (HCC) New Bag 08/18/2022 9:11 AM ASSISTANT PROFESSOR IN FAMILY STUDIES 700 mg documented in this encounter Orders Nursing Count Last Ordered Date First Orde red Date HEIGHT AND WEIGHT 1 08/18/2022 NURSING COMMUNICATION 1 08/18/2022 ONCBCN PROVIDER COMMUNICATION 1 1 3 VITAL SIGNS INTRA-INFUSION 1 08/18/2022 documented in this encounter Care Teams Printing Plate Setter Relationship Specialty Start Date End Date Tae Mcfarland MD [address] [place] [address] PCP - General 06/18/20 documented as of this encounter
--- OUTSIDE RECORDS SUMMARY | 2024-06-10 07:03 | XMS_ITS | Encounter Summary ---
Author Organization [facility] Healthcare Address [address] [place] [address] Care Team Providers Care Hygiene Assistant Name Role Phone Tae Mcfarland MD Primary Care Provide r Encounter Details Date Type Department Care Team (Late st Contact Info) Description 08/10/2023 Orders Only [facility] Pharmacy [facility] [place] [phone] Christine Denton, [facility] Social History Tobacco Use Types Packs/Day Years Used Date Smoking Tobacco: Former Smokeless Tobacco: Never Alcohol Use Standard Drinks/Week Comments Yes 1 (1 standard drink = 0.6 oz pur e alcohol) Comments Unknown Sex and Gender Information Value Date Recorded Sex Assigned at Not on file 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:53 AM NURSE EPIDEMIOLOGIST Gender Identity Not on file Sexual Orientation Not on file documented as of this encounter Plan of Treatment Not on file documented as of this encounter Visit Diagnoses Not on filedocumented in this encounter Care Teams Hygiene Assistant Relationship Specialty Start Date End Date Tae Mcfarland MD [address] [place] [address] PCP - General 06/18/20 documented as of this encounter
--- OUTSIDE RECORDS SUMMARY | 2024-06-10 07:03 | XMS_ITS | Encounter Summary ---
Author Organization [facility] Healthcare Address [address] [place] [address] Care Team Providers Care Spanish Interpreter/Translator Name Role Phone Tae Mcfarland MD Primary Care Provide r Reason for Visit * Reason Comments OP Infusion * Episode Based Medications (Routine) - Closed Specialty Diagnoses / Procedures Referred By Contac t Referred To Contact Diagnoses Crohn's disease of large intestine without complication (CMS/HCC) (HCC) Myles Mahajan, DO [address] [facility] [place] [address] Phone: tel: fax: [facility] [address] [place] [phone] Phone: tel: fax: Referral ID Status Reason Start Date Expiration Date Visits Re quested Visits Authorized [id number] Closed 10/04/2022 11/03/2023 99 99 Encounter Details Date Type Department Care Team (Late st Contact Info) Description 12/08/2022 8:00 AM CDT Infusion [facility] [address] [place] [phone] Crohn's disease of large intestine without complication (CMS/HCC) (HCC) (Primary Dx) Social History Tobacco Use Types Packs/Day Years Used Date Smoking Tobacco: Former Smokeless Tobacco: Never Alcohol Use Standard Drinks/Week Comments Yes 1 (1 standard drink = 0.6 oz pur e alcohol) Comments Unknown Sex and Gender Information Value Date Recorded Sex Assigned at Not on file 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:53 AM REPROGRAPHICS ASSOCIATE Gender Identity Not on file Sexual Orientation Not on file documented as of this encounter Last Filed Vital Signs Vital Sign Reading Time Taken Comments Blood Pressure 106/68 12/08/2022 8:08 AM CDT Pulse 61 12/08/2022 8:08 AM CDT Temperature 36.7 ??C (98 ??F) 12/08/2022 8:08 AM CDT Respiratory Rate 18 12/08/2022 8:0 8 AM CDT Oxygen Saturation 98% 12/08/2022 8:08 AM CDT Inhaled Oxygen Concentration - - Weight 61.6 kg (135 lb 14.4 oz) 12/08/2022 8:08 AM CDT Height - - Body Mass Index 24.86 10/30/2022 10:09 AM CDT documented in this encounter Progress Notes * Christine Denton RPh - 12/08/2022 8:00 AM CDT Pharmacy Note - Biotherapy [...] the nearest vial size Christine Denton RPh 12/08/22 8:17 AM documented in this encounter Nursing Notes * Andrea Seay RN - 12/08/2022 8:00 AM CDT Ambulatory to infusion center [...] 650 mg 650 mg, oral, Once, On Sun12/08/22 at 0845, For 1 dose, Give 30 minutes prior to infusion for infusion reaction prophylaxis.Indications:Crohn's disease of large intestine without complication (CMS/HCC) (HCC) Given 12/08/2022 8:14 AM CDT 650 mg diphenhydrAMINE (BENADRYL) tab/cap 25 mg 25 mg, oral, Once, On Sun12/08/22 at 0845, For 1 dose, Give 30 minutes prior to infusion for infusion reaction prophylaxis.Indications:Crohn's disease of large intestine without complication (CMS/HCC) (HCC) Given 12/08/2022 8:14 AM CDT 25 mg inFLIXimab (REMICADE) 600 mg in sodium chloride 0.9% 250 mL IVPB 600 mg, intravenous, Once, On Sun12/08/22 at 0915, For 1 dose, MAINTENANCE DOSE: [...] INFUSION. Pharmacy Note - Biotherapy Dose Rounding Pharmacy Note - Biotherapy Dose Rounding Infliximab or infliximab biosimilar has been rounded from 620 mg ( 10 mg/kg) to 600 mg per the MTS policy approved by [facility] Pharmacy and Therapeutics committee. [facility] Pharmacy and Therapeutics committee as approved the following: ? 10% dose rounding policy for biotherapy agents to the nearest vial size Christine Denton RPh 12/08/22 8:17 AM Use 1.2 micron filter or less, low-sorbing, low protein binding.Indications:Crohn's disease of large intestine without complication (CMS/HCC) (HCC) New Bag 12/08/2022 8:47 AM CDT 600 mg documented in this encounter Orders Medications Ordered That Kaushal ht Not Have Been Administered Count Last Ordered Date First Ordered Date Carrier Fluids for Secondary Infusion - 0.9% Sodium Chloride 1 12/08/2022 Nursing Count Last Ordered Date First Orde red Date HEIGHT AND WEIGHT 1 12/08/2022 NURSING COMMUNICATION 1 12/08/2022 ONCBCN PROVIDER COMMUNICATION 1 1 3 VITAL SIGNS INTRA-INFUSION 1 12/08/2022 documented in this encounter Care Teams Spanish Interpreter/Translator Relationship Specialty Start Date End Date Tae Mcfarland MD [address] [place] [address] PCP - General 06/18/20 documented as of this encounter
--- OUTSIDE RECORDS SUMMARY | 2024-06-10 07:04 | XMS_ITS | Encounter Summary ---
Author Organization [facility] Healthcare Address [address] [place] [address] Care Team Providers Care Manager Pest Name Role Phone Tae Mcfarland MD Primary Care Provide r Reason for Visit * Episode Based Medications (Routine) - Closed Specialty Diagnoses / Procedures Referred By Contac t Referred To Contact Diagnoses Crohn's disease of large intestine without complication (CMS/HCC) (HCC) Procedures IA INJ. AVSOLA, 10 MG Myles Mahajan, DO [address] [place] [address] Phone: tel: fax: [facility] [address] [place] [phone] Phone: tel: fax: Referral ID Status Reason Start Date Expiration Date Visits Re quested Visits Authorized [id number] Closed 08/13/2020 02/13/2021 1 1 Encounter Details Date Type Department Care Team (Late st Contact Info) Description 04/01/2021 8:30 AM CDT Infusion [facility] [address] [phone] Crohn's disease of large intestine [...] on file 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:53 AM CALCULATION REVIEWER Gender Identity Not on file Sexual Orientation Not on file documented as of this encounter Last Filed Vital Signs Vital Sign Reading Time Taken Comments Blood Pressure 111/74 04/01/2021 8:36 AM CDT Pulse 65 04/01/2021 8:36 AM CDT Temperature 36.6 ??C (97.9 ??F) 04/01/2021 8:36 AM CD T Respiratory Rate 18 04/01/2021 8:36 AM CDT Oxygen Saturation - - Inhaled Oxygen Concentration - - Weight 74.6 kg (164 lb 6.4 oz) 04/01/2021 8:36 A M CDT Height - - Body Mass Index 29.12 06/18/2020 8:13 AM CALCULATION REVIEWER documented in this encounter Progress Notes * Christine Denton RPh - 04/01/2021 8:30 AM CDT Pharmacy Note - Biotherapy Dose Rounding Infliximab or infliximab biosimilar has been rounded from 740 mg ( 10 mg/kg based on ABW) to 700 mgper the MTS policy approved by [facility] Pharmacy and Therapeutics committee. [facility] Pharmacy and Therapeutics committee as approved the following: ?? 10% dose rounding policy for biotherapy agents to the nearest vial size Christine Denton RPh 04/01/21 8:38 AM documented in this encounter Nursing Notes * Estee Marion RN - 04/01/2021 8:30 AM CDT Arrival for remicade. Pt feeling well. Denies recent fevers/infections. PIV started, + blood returnnoted. Premeds given. Remicade titrated per protocol. Tolerated well. PIV removed. Next 2 appts confirmed. Discharged ambulatory. documented in this encounter Plan of Treatment Not on file documented as of this encounter Visit Diagnoses Diagnosis Crohn's disease of large intestine without complication (CMS/HCC) ([facility])- Primary documented in this encounter Administered Medications Inactive Administered Medications - up to 3 most recent administrations Medication Order MAR Action Action Date Dose Rate Site acetaminophen (TYLENOL) tablet 650 mg 650 mg, oral, Once, On Sun04/01/21 at 0915, For 1 dose, Give 30 minutes prior to infusion for infusion reaction prophylaxis.Indications:Crohn's disease of large intestine without complication (CMS/HCC) (HCC) Given 04/01/2021 8:40 AM CDT 650 mg diphenhydrAMINE (BENADRYL) tab/cap 25 mg 25 mg, oral, Once, On Sun04/01/21 at 0915, For 1 dose, Give 30 minutes prior to infusion for infusion reaction prophylaxis.Indications:Crohn's disease of large intestine without complication (CMS/HCC) (HCC) Given 04/01/2021 8:41 AM CDT 25 mg inFLIXimab (REMICADE) 700 mg in sodium chloride 0.9% 250 mL IVPB 700 mg, intravenous, Once, On Sun04/01/21 at 0945, For 1 dose, MAINTENANCE DOSE: [...] large intestine without complication (CMS/HCC) ([facility]) New Bag 04/01/2021 9:04 AM CDT 700 mg documented in this encounter Care Teams Manager Pest Relationship Specialty Start Date End Date Tae Mcfarland MD [address] [place] [address] PCP - General 06/18/20 documented as of this encounter
--- OUTSIDE RECORDS SUMMARY | 2024-06-10 07:04 | XMS_ITS | Encounter Summary ---
Author Organization [facility] Healthcare Address [address] [place] [address] Care Team Providers Care Rubber Goods Finisher Name Role Phone Tae Mcfarland MD Primary Care Provide r Reason for Visit * Reason Comments OP Infusion remicade * Episode Based Medications (Routine) - Closed Specialty Diagnoses / Procedures Referred By Contac t Referred To Contact Diagnoses Crohn's disease of large intestine without complication (CMS/HCC) (HCC) Procedures ME INFLIXIMAB NOT BIOSIMIL 10MG Myles Mahajan, DO [address] [place] [address] Phone: tel: fax: [facility] [address] [place] [phone] Phone: tel: fax: Referral ID Status Reason Start Date Expiration Date Visits Re quested Visits Authorized [id number] Closed 01/10/2020 07/22/2020 1 1 Encounter Details Date Type Department Care Team (Late st Contact Info) Description 07/16/2020 8:00 AM TECHNICAL SERVICES ANALYST Infusion [facility] [address] [place] [phone] Crohn's disease of large intestine without complication (CMS/HCC) (Primary Dx) Social History Tobacco Use Types Packs/Day Years Used Date Smoking Tobacco: Former Smokeless Tobacco: Never Alcohol Use Standard Drinks/Week Comments Yes 1 (1 standard drink = 0.6 oz pur e alcohol) Comments Unknown Sex and Gender Information Value Date Recorded Sex Assigned at Not on file 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:53 AM TECHNICAL SERVICES ANALYST Gender Identity Not on file Sexual Orientation Not on file documented as of this encounter Last Filed Vital Signs Vital Sign Reading Time Taken Comments Blood Pressure 130/80 07/16/2020 7:57 AM TECHNICAL SERVICES ANALYST Pulse 67 07/16/2020 7:57 AM TECHNICAL SERVICES ANALYST Temperature 36.7 ??C (98 ??F) 07/16/2020 7:57 AM TECHNICAL SERVICES ANALYST Respiratory Rate 16 07/16/2020 7:57 AM TECHNICAL SERVICES ANALYST Oxygen Saturation - - Inhaled Oxygen Concentration - - Weight 77.5 kg (170 lb 14.4 oz) 07/16/2020 7:57 AM TECHNICAL SERVICES ANALYST Height - - Body Mass Index 30.27 06/18/2020 8:13 AM TECHNICAL SERVICES ANALYST documented in this encounter Nursing Notes * Adri Lentz, RN - 07/16/2020 8:00 AM CST Pt arrives for remocade. Denies fevers or s/s of infection. Premeds given. PIV started in LFA. Tolerated infusion. PIV removed and pressure dressing applied. Next 2 appts confirmed. D/C ambulatory. NICAL SERVICES ANALYST documented in this encounter Plan of Treatment Not on file documented as of this encounter Visit Diagnoses Diagnosis Crohn's disease of large intestine without complication (CMS/HCC) (HCC)- Primary documented in this encounter Administered Medications Inactive Administered Medications - up to 3 most recent administrations Medication Order MAR Action Action Date Dose Rate Site acetaminophen (TYLENOL) tablet 650 mg 650 mg, oral, Once, On Sun07/16/20 at 0845, For 1 dose, Please give 30 minutes prior to infusion for infusion reaction prophylaxis.Indications:Crohn's disease of large intestine without complication (CMS/HCC) (HCC) Given 07/16/2020 8:10 AM TECHNICAL SERVICES ANALYST 650 mg diphenhydrAMINE (BENADRYL) tab/cap 25 mg 25 mg, oral, Once, On Sun07/16/20 at 0845, For 1 dose, Please give 30 minutes prior to infusion for infusion reaction prophylaxis.Indications:Crohn's disease of large intestine without complication (CMS/HCC) (HCC) Given 07/16/2020 8:10 AM TECHNICAL SERVICES ANALYST 25 mg inFLIXimab (REMICADE) 780 mg in sodium chloride 0.9% 250 mL IVPB 780 mg (rounded from 775 mg = 10 mg/kg ? 77.5 kg), intravenous, Administer over 2 Hours, Once, On Sun07/16/20 at 0845, For 1 dose, Infuse with filter tubing Maintenance Dose: Administer every 8 weeks starting on week 14. lnititate therapy at 10mI/hour x 15 minutes then Increase to 20ml/hour x 15 minutes then Increase to 40ml/hour x 15 minutes then Increase to 80ml/hour x 15 minutes then Increase to 150ml/hour x 30 minutes then Increase to 250ml/hour x 30 minutes until infusion is completed. FOR REACTIONS-STOP INFUSION. For 500 ml: Initiate therapy at 20 ml/hour x 15 minutes then Increase to 40 ml/hour x 15 minutes then Increase to 80 ml/hour x 15 minutes the Increase to 160 ml/hours x 15 minutes then Increase to 300 ml/hour x 30 minutes then Increase to 500 ml/hour until infusion is completed. Use 1.2 micron filter or less, low-sorbing.Indications:Crohn's disease of large intestine without complication (CMS/HCC) (HCC) New Bag 07/16/2020 8:24 AM TECHNICAL SERVICES ANALYST 780 mg documented in this encounter Orders Nursing Count Last Ordered Date First Orde red Date HEIGHT AND WEIGHT 07/16/2020 MAINTAIN VITAL SIGNS 1 07/16/2020 ONCBCN PROVIDER COMMUNICATION 1 documented in this encounter Care Teams Rubber Goods Finisher Relationship Specialty Start Date End Date Tae Mcfarland MD [address] [place] [address] PCP - General 06/18/20 documented as of this encounter
--- OUTSIDE RECORDS SUMMARY | 2024-06-10 07:04 | XMS_ITS | Encounter Summary ---
Author Organization [facility] Healthcare Address [address] [place] [address] Care Team Providers Care Law Instructor Name Role Phone Tae Mcfarland MD Primary Care Provide r Reason for Visit * Reason Comments OP Infusion * Episode Based Medications (Routine) - Closed Specialty Diagnoses / Procedures Referred By Contac t Referred To Contact Diagnoses Crohn's disease of large intestine without complication (CMS/HCC) (HCC) Procedures [place] INFLIXIMAB NOT BIOSIMIL 10MG Myles Mahajan, DO [address] [place] [address] Phone: tel: fax: [facility] [address] [place] [phone] Phone: tel: fax: Referral ID Status Reason Start Date Expiration Date Visits Re quested Visits Authorized [id number] Closed 01/16/2021 07/29/2021 1 1 Encounter Details Date Type Department Care Team (Late st Contact Info) Description 07/08/2021 8:45 AM WELLNESS COACH Infusion [facility] [address] [place] [phone] Crohn's disease of large intestine without complication (CMS/HCC) (HCC) (Primary Dx) Social History Tobacco Use Types Packs/Day Years Used Date Smoking Tobacco: Former Smokeless Tobacco: Never Alcohol Use Standard Drinks/Week Comments Yes 1 (1 standard drink = 0.6 oz pur e alcohol) Comments Unknown Sex and Gender Information Value Date Recorded Sex Assigned at Not on file 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:53 AM WELLNESS COACH Gender Identity Not on file Sexual Orientation Not on file documented as of this encounter Last Filed Vital Signs Vital Sign Reading Time Taken Comments Blood Pressure 130/75 07/08/2021 8:40 AM WELLNESS COACH Pulse 68 07/08/2021 8:40 AM WELLNESS COACH Temperature 36.1 ??C (96.9 ??F) 07/08/2021 8:40 AM CS T Respiratory Rate 18 07/08/2021 8:40 AM WELLNESS COACH Oxygen Saturation - - Inhaled Oxygen Concentration - - Weight 72.5 kg (159 lb 14.4 oz) 07/08/2021 8:40 AM WELLNESS COACH Height - - Body Mass Index 29.25 05/27/2021 7:34 PM WELLNESS COACH documented in this encounter Progress Notes * Christine Denton [facility] - 07/08/2021 8:45 AM CST Pharmacy Note - Biotherapy Dose Rounding Infliximab or infliximab biosimilar has been rounded from 730 mg ( 10 mg/kg) to 700 mg per the MTS policy approved by [facility] Pharmacy and Therapeutics committee. [facility] Pharmacy and Therapeutics committee as approved the following: ?? 10% dose rounding policy for biotherapy agents to the nearest vial size Christine Denton RPh 07/08/21 8:49 AM NESS COACH documented in this encounter Nursing Notes * Estee Marion RN - 07/08/2021 8:45 AM CST Arrives for remicade. Pt feeling well. Recently recovered from COVID. Feeling much better. PIV started, + blood return noted. Premeds given. Titrated per protocol. Tolerated well. PIV removed.Orders 07/29/21, message sent to [facility]. Discharged ambulatory. NESS COACH NESS COACH documented in this encounter Plan of Treatment Not on file documented as of this encounter Visit Diagnoses Diagnosis Crohn's disease of large intestine without complication (CMS/HCC) ([facility])- Primary documented in this encounter Administered Medications Inactive Administered Medications - up to 3 most recent administrations Medication Order MAR Action Action Date Dose Rate Site acetaminophen (TYLENOL) tablet 650 mg 650 mg, oral, Once, On Sun07/08/21 at 0915, For 1 dose, Give 30 minutes prior to infusion for infusion reaction prophylaxis.Indications:Crohn's disease of large intestine without complication (CMS/HCC) (HCC) Given 07/08/2021 8:45 AM WELLNESS COACH 650 mg diphenhydrAMINE (BENADRYL) tab/cap 25 mg 25 mg, oral, Once, On Sun07/08/21 at 0915, For 1 dose, Give 30 minutes prior to infusion for infusion reaction prophylaxis.Indications:Crohn's disease of large intestine without complication (CMS/HCC) ([facility]) Given 07/08/2021 8:45 AM WELLNESS COACH 25 mg inFLIXimab (REMICADE) 700 mg in sodium chloride 0.9% 250 mL IVPB 700 mg, intravenous, Once, On Sun07/08/21 at 0945, For 1 dose, MAINTENANCE DOSE: [...] disease of large intestine without complication (CMS/HCC) ([facility]) New Bag 07/08/2021 9:04 AM WELLNESS COACH 700 mg documented in this encounter Orders Nursing Count Last Ordered Date First Orde red Date HEIGHT AND WEIGHT 1 07/08/2021 NURSING COMMUNICATION 1 07/08/2021 ONCBCN PROVIDER COMMUNICATION 1 VITAL SIGNS INTRA-INFUSION 1 07/08/2021 documented in this encounter Care Teams Law Instructor Relationship Specialty Start Date End Date Tae Mcfarland MD [address] [place], [place] [phone] PCP - General 06/18/20 documented as of this encounter
--- OUTSIDE RECORDS SUMMARY | 2024-06-10 07:04 | XMS_ITS | Encounter Summary ---
Author Organization [facility] Healthcare Address [address] [place] [address] Care Team Providers Care Rawhide Trimmer Name Role Phone Tae Mcfarland MD Primary Care Provide r Encounter Details Date Type Department Care Team (Late st Contact Info) Description 10/15/2020 8:15 AM CDT Lab [facility] Lab [facility] [place] [phone] Crohn's disease of large intestine without complication (CMS/HCC) Social History Tobacco Use Types Packs/Day Years Used Date Smoking Tobacco: Former Smokeless Tobacco: Never Alcohol Use Standard Drinks/Week Comments Yes 1 (1 standard drink = 0.6 oz pur e alcohol) Comments Unknown Sex and Gender Information Value Date Recorded Sex Assigned at Not on file 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:53 AM WRIST LINER Gender Identity Not on file Sexual Orientation Not on file documented as of this encounter Plan of Treatment Not on file documented as of this encounter Procedures Procedure Name Priority Date/Time Associated Diagnosis Comments TB TEST, QUANTIFERON GOLD STAT 10/15/2020 8:26 AM CDT Crohn's disease of large intestine without complication (CMS/HCC) documented in this encounter Results * TB test, quantiferon gold (10/15/2020 8:26 AM CDT) Pathologist [facility] Quantiferon TB Gold Negative Negative [facility] Comment: No interferon-gamma response to M. tuberculosis antigens was detected. Infection with M. tuberculosis is unlikely. A single [...] Interferon-gamma level <0.35 IU/mL. TB-Nil 0.00 IUnits/mL [facility] TB2-Nil 0.00 IUnits/mL [facility] Mitogen-Nil 5.32 IUnits/mL [facility] NIL 0.01 IUnits/mL [facility] Comment: Test Performed by: [facility] [address] [place] [address] Experimental Welder: Albert Tirado M.D. Ph.D.; CLIA# [id number] Blood specimen (specimen) 10/15/2020 8:26 AM CDT 10/15/2020 9:18 AM CDT us Myles Mahajan DO LAB BLOOD ORDERABLES Final Res ult [facility] [address] Department [place] [address] documented in this encounter Visit Diagnoses Diagnosis Crohn's disease of large intestine without complication (CMS/HCC) (HCC) documented in this encounter Care Teams Rawhide Trimmer Relationship Specialty Start Date End Date Tae Mcfarland MD [address] [place] [address] PCP - General 06/18/20 documented as of this encounter
--- OUTSIDE RECORDS SUMMARY | 2024-06-10 07:04 | XMS_ITS | Encounter Summary ---
Author Organization [facility] Healthcare Address [address] [place] [address] Care Team Providers Care Production Machine Operator Name Role Phone Tae Mcfarland MD Primary Care Provide r Reason for Visit * Reason Comments OP Infusion * Episode Based Medications (Routine) - Closed Specialty Diagnoses / Procedures Referred By Contac t Referred To Contact Diagnoses Crohn's disease of large intestine without complication (CMS/HCC) (HCC) Procedures SD INJ. AVSOLA, 10 MG Myles Mahajan, DO [address] [place] [address] Phone: tel: fax: [facility] [address] [place] [phone] Phone: tel: fax: Referral ID Status Reason Start Date Expiration Date Visits Re quested Visits Authorized [id number] Closed 08/13/2020 02/13/2021 1 1 Encounter Details Date Type Department Care Team (Late st Contact Info) Description 05/27/2021 8:30 AM SCOW HAND Infusion [facility] [address] [place] [phone] Crohn's disease of large intestine without complication (CMS/HCC) (HCC) (Primary Dx) Social History Tobacco Use Types Packs/Day Years Used Date Smoking Tobacco: Former Smokeless Tobacco: Never Alcohol Use Standard Drinks/Week Comments Yes 1 (1 standard drink = 0.6 oz pur e alcohol) Comments Unknown Sex and Gender Information Value Date Recorded Sex Assigned at Not on file 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:53 AM SCOW HAND Gender Identity Not on file Sexual Orientation Not on file documented as of this encounter Last Filed Vital Signs Vital Sign Reading Time Taken Comments Blood Pressure 122/73 05/27/2021 8:43 AM SCOW HAND Pulse 72 05/27/2021 8:43 AM SCOW HAND Temperature 36.1 ??C (97 ??F) 05/27/2021 8:43 AM SCOW HAND Respiratory Rate 16 05/27/2021 8:43 AM SCOW HAND Oxygen Saturation 100% 05/27/2021 8:43 AM SCOW HAND Inhaled Oxygen Concentration - - Weight 73.9 kg (162 lb 14.4 oz) 05/27/2021 8:28 AM SCOW HAND Height - - Body Mass Index 28.86 06/18/2020 8:13 AM SCOW HAND documented in this encounter Progress Notes * Marian Vera RPh - 05/27/2021 8:30 AM CST Pharmacy Note - Biotherapy Dose Rounding Rituximab or rituximab biosimilar has been rounded from 740 mg ( 10 mg/kg) to 700 mg per the MTS policy approved by [facility] Pharmacy and Therapeutics committee. [facility] Pharmacy and Therapeutics committee as approved the following: ?? 10% dose rounding policy for biotherapy agents to the nearest vial size Marian Vera RPh 05/27/21 8:31 AM HAND documented in this encounter Nursing Notes * Nabila Watt RN - 05/27/2021 8:30 AM CST Patient arrives for remicade infusion today. Denies any recent fevers/infections. TB expires 10/15/21. States she is feeling well today. PIV started in R forearm, + blood return noted. Premeds given. Tolerated infusion well and titrated per orders. PIV removed and pressure dressing applied. Schedule confirmed. Patient discharged in stable condition per ambulatory. HAND documented in this encounter Plan of Treatment Not on file documented as of this encounter Visit Diagnoses Diagnosis Crohn's disease of large intestine without complication (CMS/HCC) (HCC)- Primary documented in this encounter Administered Medications Inactive Administered Medications - up to 3 most recent administrations Medication Order MAR Action Action Date Dose Rate Site acetaminophen (TYLENOL) tablet 650 mg 650 mg, oral, Once, On Sun05/27/21 at 0900, For 1 dose, Give 30 minutes prior to infusion for infusion reaction prophylaxis.Indications:Crohn's disease of large intestine without complication (CMS/HCC) (HCC) Given 05/27/2021 8:32 AM SCOW HAND 650 mg diphenhydrAMINE (BENADRYL) tab/cap 25 mg 25 mg, oral, Once, On Sun05/27/21 at 0900, For 1 dose, Give 30 minutes prior to infusion for infusion reaction prophylaxis.Indications:Crohn's disease of large intestine without complication (CMS/HCC) (HCC) Given 05/27/2021 8:33 AM SCOW HAND 25 mg inFLIXimab (REMICADE) 700 mg in sodium chloride 0.9% 250 mL IVPB 700 mg, intravenous, Once, On Sun05/27/21 at 0930, For 1 dose, MAINTENANCE DOSE: [...] of large intestine without complication (CMS/HCC) ([facility]) New Bag 05/27/2021 8:50 AM SCOW HAND 700 mg documented in this encounter Orders Medications Ordered That [place]aushal ht Not Have Been Administered Count Last Ordered Date First Ordered Date sodium chloride 0.9% infusion 1 05/27/2021 Nursing Count Last Ordered Date First Orde red Date HEIGHT AND WEIGHT 1 05/27/2021 NURSING COMMUNICATION 1 05/27/2021 ONCBCN PROVIDER COMMUNICATION 1 1 VITAL SIGNS INTRA-INFUSION 1 05/27/2021 documented in this encounter Care Teams Production Machine Operator Relationship Specialty Start Date End Date Tae Mcfarland MD [address] [place] [address] PCP - General 06/18/20 documented as of this encounter
--- OUTSIDE RECORDS SUMMARY | 2024-06-10 07:04 | XMS_ITS | Encounter Summary ---
Author Organization [facility] Healthcare Address [address] [place] [address] Care Team Providers Care Chief Recordist Name Role Phone Tae Mcfarland MD Primary Care Provide r Reason for Visit * Reason Comments OP Infusion * Episode Based Medications (Routine) - Closed Specialty Diagnoses / Procedures Referred By Contac t Referred To Contact Diagnoses Crohn's disease of large intestine without complication (CMS/HCC) (HCC) Procedures OR INFLIXIMAB NOT BIOSIMIL 10MG Myles Mahajan, DO [address] [place] [place] [address] Phone: tel: fax: [facility] [address] [place] [phone] Phone: tel: fax: Referral ID Status Reason Start Date Expiration Date Visits Re quested Visits Authorized [id number] Closed 01/10/2020 07/22/2020 1 1 Encounter Details Date Type Department Care Team (Late st Contact Info) Description 06/18/2020 8:15 AM IT COMMUNICATIONS SPECIALIST Infusion [facility] [address] [place] [phone] Crohn's disease of large intestine without [...] 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:53 AM IT COMMUNICATIONS SPECIALIST Gender Identity Not on file Sexual Orientation Not on file documented as of this encounter Last Filed Vital Signs Vital Sign Reading Time Taken Comments Blood Pressure 139/85 06/18/2020 8:13 AM IT COMMUNICATIONS SPECIALIST Pulse 75 06/18/2020 8:13 AM IT COMMUNICATIONS SPECIALIST Temperature 36.5 ??C (97.7 ??F) 06/18/2020 8:13 AM CS T Respiratory Rate 18 06/18/2020 8:13 AM IT COMMUNICATIONS SPECIALIST Oxygen Saturation 100% 06/18/2020 8:13 AM IT COMMUNICATIONS SPECIALIST Inhaled Oxygen Concentration - - Weight 75.2 kg (165 lb 11.2 oz) 06/18/2020 8:13 AM IT COMMUNICATIONS SPECIALIST Height 160 cm (5' 3 ) 06/18/2020 8:13 AM IT COMMUNICATIONS SPECIALIST Body Mass Index 29.35 06/18/2020 8:13 AM IT COMMUNICATIONS SPECIALIST documented in this encounter Nursing Notes * Heaven Heard RN - 06/18/2020 8:15 AM CST Arrives for treatment. VS and symptoms reviewed. Patient reports tolerating past remicade infusions, denies s/s of infection, and TB expires 10/2020. PIV started, positive for blood return. Pre medications given and remicade titrated per order set over 2 hours. Infusion tolerated and PIV removed. Schedule confirmed, and copy provided to patient. Patient reminded orders next month, message to Ferny. Discharge ambulatory. Heaven Heard RN. COMMUNICATIONS SPECIALIST COMMUNICATIONS SPECIALIST documented in this encounter Plan of Treatment Not on file documented as of this encounter Visit Diagnoses Diagnosis Crohn's disease of large intestine without complication (CMS/HCC) (HCC)- Primary documented in this encounter Administered Medications Inactive Administered Medications - up to 3 most recent administrations Medication Order MAR Action Action Date Dose Rate Site acetaminophen (TYLENOL) tablet 650 mg 650 mg, oral, Once, On Sun06/18/20 at 0900, For 1 dose, Please give 30 minutes prior to infusion for infusion reaction prophylaxis.Indications:Crohn's disease of large intestine without complication (CMS/HCC) ([facility]) Given 06/18/2020 8:18 AM IT COMMUNICATIONS SPECIALIST 650 mg diphenhydrAMINE (BENADRYL) tab/cap 25 mg 25 mg, oral, Once, On Sun06/18/20 at 0900, For 1 dose, Please give 30 minutes prior to infusion for infusion reaction prophylaxis.Indications:Crohn's disease of large intestine without complication (CMS/HCC) ([facility]) Given 06/18/2020 8:18 AM IT COMMUNICATIONS SPECIALIST 25 mg inFLIXimab (REMICADE) 700 mg in sodium chloride 0.9% 250 mL IVPB 700 mg, intravenous, Administer over 2 Hours, Once, On Sun06/18/20 at 0900, For 1 dose, Infuse with filter tubing [...] ([facility]) New Bag 06/18/2020 9:08 AM IT COMMUNICATIONS SPECIALIST 700 mg documented in this encounter Orders Nursing Count Last Ordered Date First Orde red Date HEIGHT AND WEIGHT 1 06/18/2020 MAINTAIN VITAL SIGNS 1 06/18/2020 ONCBCN PROVIDER COMMUNICATION 1 1 documented in this encounter Care Teams Chief Recordist Relationship Specialty Start Date End Date Tae Mcfarland MD [address] [place] [address] PCP - General 06/18/20 documented as of this encounter
--- OUTSIDE RECORDS SUMMARY | 2024-06-10 07:04 | XMS_ITS | Encounter Summary ---
Author Organization [facility] Healthcare Address [address] [place] [address] Care Team Providers Care Project Drilling Engineer Name Role Phone Tae Mcfarland MD Primary Care Provide r Reason for Visit * Reason Comments Fall Head Laceration Encounter Details Date Type Department Care Team (Late st Contact Info) Description 05/27/2021 8:12 PM PRINCIPAL NETWORK ENGINEER - 05/28/2021 1:06 AM [facility] Emergency [address] [address] Fall, initial encounter (Primary Dx); Head injury, initial encounter; Eyebrow laceration, right, initial encounter; Neck pain Discharge Disposition: Discharge to home or self care Social History Tobacco Use Types Packs/Day Years Used Date Smoking Tobacco: Former Smokeless Tobacco: Never Alcohol Use Standard Drinks/Week Comments Yes 1 (1 standard drink = 0.6 oz pur e alcohol) Comments Unknown Sex and Gender Information Value Date Recorded Sex Assigned at Not on file 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:53 AM PRINCIPAL NETWORK ENGINEER Gender Identity Not on file Sexual Orientation Not on file documented as of this encounter Last Filed Vital Signs Vital Sign Reading Time Taken Comments Blood Pressure 145/90 05/27/2021 9:35 PM PRINCIPAL NETWORK ENGINEER Pulse 62 05/27/2021 9:35 PM PRINCIPAL NETWORK ENGINEER Temperature 37 ??C (98.6 ??F) 05/27/2021 7:34 PM PRINCIPAL NETWORK ENGINEER Respiratory Rate 18 05/27/2021 9:35 PM PRINCIPAL NETWORK ENGINEER Oxygen Saturation 97% 05/27/2021 9:35 PM PRINCIPAL NETWORK ENGINEER Inhaled Oxygen Concentration - - Weight 71.7 kg (158 lb) 05/27/2021 7:34 PM PRINCIPAL NETWORK ENGINEER Height 157.5 cm (5' 2 ) 05/27/2021 7:34 PM PRINCIPAL NETWORK ENGINEER Body Mass Index 28.9 05/27/2021 7:34 PM PRINCIPAL NETWORK ENGINEER documented in this encounter Discharge Instructions * Discharge Instructions* Elizabeth Talamantes PA - 05/28/2021 12:42 AM PRINCIPAL NETWORK ENGINEER Please follow-up with your doctor to have sutures removed in 5-7 days. Try to keep the area clean and dry. Please return to the ED if you develop increased pain, redness are warmth at the laceration site as these may be signs of infection. Regarding your head injury, please return to the ED if you develop worsening headache, vision changes, vomiting, or changes in speech. CIPAL NETWORK ENGINEER CIPAL NETWORK ENGINEER * Attachments The following attachments cannot be sent through Care Everywhere. * Laceration (AfterCare(R) Instructions(ER/ED)) ([place]) * Concussion (AfterCare(R) Instructions(ER/ED)) ([place]) documented in this encounter Medications at Time of Discharge amitriptyline (ELAVIL) 25 mg tablet Take 1 tablet (25 mg total) by mouth nightly amLODIPine (NORVASC) 5 mg tablet Take 1 tablet (5 mg total) by mouth supervisor parking lot before breakfast cephalexin (KEFLEX) 500 mg capsule Take 1 capsule (500 mg total) by mouth every 12 (twelve) hours 05/09/2021 dicyclomine (BENTYL) 20 mg tablet Take 1 tablet (20 mg total) by mouth every 6 (six) hours hydroCHLOROthiaz kleber (HYDRODIURIL) 25 mg tablet Take 1 tablet (25 mg total) by mouth supervisor parking lot before breakfast levothyroxine sodium (TIROSINT) 50 mcg capsule 125 mcg supervisor [address] before breakfast. losartan (COZAAR) 50 mg tablet Take 50 mg by mouth supervisor parking lot before breakfast. meloxicam (MOBIC) 7.5 mg tablet Take 1 tablet (7.5 mg total) by mouth 2 (two) times a day. 60 tablet 2 02/25/2018 ondansetron (ZOFRAN) 4 mg tablet Take 1 tablet (4 mg total) by mouth 02/09/2021 topiramate (TOPAMAX) 50 mg tablet Take 1 tablet (50 mg total) by mouth 2 (two) times a day zolpidem (AMBIEN) 5 mg tabletIndication s:Sleep-Onset Insomnia Take 10 mg by mouth nightly as needed for sleep. documented as of this encounter Discharge Disposition Disposition Code Departure Means Destination Discharge to home or self care documented in this encounter ED Notes * Elizabeth Talamantes PA - 05/27/2021 10:30 PM CST HPI Chief Complaint Patient presents with ??? Fall ??? Head Laceration HPI 7:10 PM Karon Gaviria is a 61 y.o. female presenting to the ED c/o head injury s/p fall. Pt reportsthat shortly prior to arrival she tripped over he dog outside and fell hitting her head on wood object that looks like a railroad tie . Denies LOC and was able to get up following the incident. However, states that family thought she seemed dazed and her speech may have been slurred. Pt has swelling and laceration to the right eyebrow. Pt not on any blood thinners. She also reports some pain in her neck and right knee. No extremity numbness or tingling. Patient History: Past Medical History: Diagnosis Date ??? Crohn's disease (CMS/HCC) ??? Hypertension ??? Migraines ??? PONV (postoperative nausea and vomiting) ??? Thyroid disease Past Surgical History: Procedure Laterality Date ??? CHOLECYSTECTOMY ??? HERNIA REPAIR ??? HYSTERECTOMY Family History Problem Relation Age of Onset ??? Hypertension Mother Family history of hypertension - (Added by TW Conv) ??? Heart disease Mother Family history of cardiac disorder - (Added by TW Conv) ??? Arthritis Mother Family history of arthritis - (Added by TW Conv) ??? Hypertension Father Family history of hypertension - (Added by TW Conv) ??? Heart disease Father Family history of cardiac disorder - (Added by TW Conv) Social History Tobacco Use ??? Smoking status: Former Smoker ??? Smokeless tobacco: Never Used Substance Use Topics ??? Alcohol use: Yes Alcohol/week: 1.0 standard drink Types: 1 Cans of beer per week ??? Drug use: No No current facility-administered medications for this encounter. Current Outpatient Medications: ??? amitriptyline (ELAVIL) 25 mg tablet ??? amLODIPine (NORVASC) 5 mg tablet ??? dicyclomine (BENTYL) 20 mg tablet ??? hydroCHLOROthiazide (HYDRODIURIL) 25 mg tablet ??? levothyroxine sodium (TIROSINT) 50 mcg capsule ??? losartan (COZAAR) 50 mg tablet ??? meloxicam (MOBIC) 7.5 mg tablet ??? topiramate (TOPAMAX) 50 mg tablet ??? zolpidem (AMBIEN) 5 mg tablet Review of Systems Review of Systems Eyes: Negative for visual disturbance. Respiratory: Negative for shortness of breath. Cardiovascular: Negative for chest pain. Gastrointestinal: Negative for abdominal pain and vomiting. Musculoskeletal: Positive for neck pain. Negative for back pain. Right knee pain Neurological: Positive for headaches. Negative for syncope. All systems reviewed and are neg or non contributory for this patients presentation today other than as stated in the HPI . Physical Exam ED Triage Vitals [05/27/211933] Temp Pulse Resp BP SpO2 37 ??C (98.6 ??F) 69 18 132/82 96 % Temp src Heart Rate Source Patient Position BP Location FiO2 (%) Oral Monitor Sitting Right arm -- Physical Exam Vitals and nursing note reviewed. Constitutional: Appearance: Normal appearance. HENT: Head: Comments: Bruising and swelling noted to R eye and eyelid. Liner approximately 2cm laceration just below the R eyebrow with some active bleeding. No eyelid involvement. No facial pain or tenderness No jaw tenderness No nasal tenderness, epistaxis or deformity Nose: Nose normal. Mouth/Throat: Comments: No dental injury Eyes: Extraocular Movements: Extraocular movements intact. Conjunctiva/sclera: Conjunctivae normal. Pupils: Pupils are equal, round, and reactive to light. Comments: No globe injury Neck: Comments: ccollar in place No midline tenderness Cardiovascular: Rate and Rhythm: Normal rate and regular rhythm. Pulmonary: Effort: Pulmonary effort is normal. Breath sounds: Normal breath sounds. Abdominal: Palpations: Abdomen is soft. Tenderness: There is no abdominal tenderness. Musculoskeletal: Comments: No obvious swelling or deformity to the right knee No point tenderness Able to extend but with some increased pain Skin: General: Skin is warm and dry. Neurological: General: No focal deficit present. Mental Status: She is alert and oriented to person, place, and time. Comments: Normal speech No facial droop Psychiatric: Mood and Affect: Mood normal. Behavior: Behavior normal. Procedures [facility] Labs Reviewed - No data to display XR Knee Right 1 or [address] Head WO Contrast Final Result CT Cervical Spine WO Contrast Final Result FINDINGS: CT HEAD BRAIN: No hemorrhage, edema or mass effect. No recent infarct. Normal white matter. ?? EXTRA-AXIAL SPACES: No fluid collections. No masses. ?? CALVARIUM: No fracture. ?? SINUSES/MASTOIDS: Moderate mucoperiosteal thickening seen 0 8 and ethmoid sinuses as evidence of chronic sinusitis. Prior sinus surgery changes. ?? ORBITS: No significant abnormality. ?? OTHER: Preorbital soft tissue swelling on the right as evidence of contusion or hematoma. No involvement of the globe or intraconal contents. No adjacent bony abnormality. Adjacent intracranial abnormality. IMPRESSION: No acute intracranial findings FINDINGS: CT CERVICAL SPINE ALIGNMENT: Normal. ?? VERTEBRAE: ?? No fracture. ?? Multiple subtle lucencies within vertebral bodies are nonspecific and could be related to bony trabeculation and osteopenia though lytic lesions such as multiple myeloma could give this appearance. Please correlate clinically. Largest outbound call center representative lesion located in the dens measures 0.5 cm. ?? DISCS: Disc heights well-maintained. ?? HARDWARE: None in the spine. ?? INDIVIDUAL DISC LEVELS: No significant osseous spinal canal or neural foraminal stenosis. ?? UPPER THORACIC: Incompletely imaged. No significant osseous spinal stenosis or osseous neural foraminal stenosis. ?? SKULL BASE: No significant finding. ?? LUNG APICES: No significant abnormality. ?? NECK SOFT TISSUES: No significant abnormality. ?? OTHER: No other significant findings. IMPRESSION: No fracture or subluxation. Multiple lucencies throughout the cervical vertebra are nonspecific measuring up to 0.5 cm in the dens of C2, please correlate clinically for malignancy, consider multiple myeloma or even osteopenia FINDINGS: XRAY RIGHT KNEE No fracture or dislocation. No lytic or destructive process. Soft tissues are unremarkable without joint effusion. IMPRESSION: No acute findings right knee BP 145/90 (BP Location: Right arm, Patient Position: Sitting) Pulse 62 Temp 37 ??C (98.6 ??F) (Oral) Resp 18 Ht 157.5 cm (5' 2 ) Wt 71.7 kg (158 lb) SpO2 97% BMI 28.90 kg/m?? MDM ?? CT head negative for acute process or ICH ?? CT cervical spine negative for acute fracture. Discussed with pt radiology read with multiple lucencies seen through C2 and importance of PCP follow-up. ?? Xray right knee- negative for acute fracture or dislocation ?? Laceration repair performed, see separate procedure note ?? Plan for discharge home. Discussed warning signs and when to return to the ED. Pt expresses understanding and is comfortable with discharge home. This examination was transcribed using the Looklet voice recognition system without human professor sculpture. In an effort to expedite patient care, this report has not been adjusted for typographical, grammatical, and syntax by a trained certified medical records coder. Clinical Impression: Fall, initial encounter Head injury, initial encounter Eyebrow laceration, right, initial encounter Neck pain Elizabeth Talamantes PA 05/28/211909 Cosigned by Shannon Dong MD at 05/31/2021 6:16 AM PRINCIPAL NETWORK ENGINEER CIPAL NETWORK ENGINEER CIPAL NETWORK ENGINEER * Clover Beaver RN - 05/27/2021 7:50 PM CST Pt arrives S/P GLF from standing. Pt states she was walking her dog, he stopped real fast and she tripped over the top of her dog , hitting her head on a railroad tie Denies LOC Lac to right brow + dizziness Pt states she had an intermittent feeling of not being able to speak, and her friends stated her speech was slurred Speech is clear in triage No blood thinners Denies neck pain Right knee pain CIPAL NETWORK ENGINEER CIPAL NETWORK ENGINEER documented in this encounter Miscellaneous Notes * ED Procedure Note - Elizabeth Talamantes PA - 05/28/2021 1:06 AM CSTAssociated Order(s): Laceration Repair Procedure Laceration Repair Date/Time: 05/28/2021 5:23 AM Performed by: Elizabeth Talamantes PA Authorized by: Shannon Dong MD Anesthesia method: Local infiltration Local anesthetic: Lidocaine 1% Location: Face Face location: R eyebrow Length (cm): 2 Repair type: Simple Preparation: Patient was prepped and draped in usual sterile fashion Area cleansed with: Saline Amount of cleaning: Standard Irrigation solution: Sterile saline Irrigation method: Syringe Visualized foreign bodies/material removed: no Repair method: Sutures Suture size: 5-0 Suture material: Nylon Number of sutures: 5 Vermilion border: well-aligned Dressing: Open (no dressing) Patient tolerance of procedure: Tolerated well, no immediate complications Elizabeth Talamantes PA 05/28/21 191 CIPAL NETWORK ENGINEER documented in this encounter Plan of Treatment Not on file documented as of this encounter Procedures Procedure Name Priority Date/Time Associated Diagnosis Comments ED LACERATION REPAIR Routine 05/28/2021 5:23 AM PRINCIPAL NETWORK ENGINEER XR KNEE RIGHT 1 OR 2 VIEWS ED 05/27/2021 8:17 PM PRINCIPAL NETWORK ENGINEER CT CERVICAL SPINE WO CONTRAST ED 05/27/2021 8:11 PM PRINCIPAL NETWORK ENGINEER CT HEAD WO CONTRAST ED 05/27/2021 8 :11 PM PRINCIPAL NETWORK ENGINEER documented in this encounter Results * Laceration Repair (05/28/2021 5:23 AM PRINCIPAL NETWORK ENGINEER) Narrative Elizabeth Talamantes PA - 05/28/2021 5:23 AM PRINCIPAL NETWORK ENGINEER Elizabeth Talamantes PA ? 05/28/2021 ??7:13 PM Laceration Repair Date/Time: 05/28/2021 5:23 AM Performed by: Elizabeth Talamantes PA Authorized by: Shannon Dong MD Anesthesia method: ??Local infiltration Local anesthetic: ??Lidocaine 1% Location: ??Face Face location: ??R eyebrow Length (cm): ??2 Repair type: ??Simple Preparation: ??Patient was prepped and draped in usual sterile fashion Area cleansed with: ??Saline Amount of cleaning: ??Standard Irrigation solution: ??Sterile saline Irrigation method: ??Syringe Visualized foreign bodies/material removed: no ?? Repair method: ??Sutures Suture size: ??5-0 Suture material: ??Nylon Number of sutures: ??5 Vermilion border: well-aligned ?? Dressing: ??Open (no dressing) Patient tolerance of procedure: ??Tolerated well, no immediate complications us Shannon Dong MD IN CLINIC/BEDSIDE ORDERAB LES Final Result * XR Knee Right 1 or 2 Views (05/27/2021 8:17 PM PRINCIPAL NETWORK ENGINEER) Anatomical Region Laterality Modality Lower Extremities, Knee Right Computed Radiography 05/27/2021 8:28 PM PRINCIPAL NETWORK ENGINEER Narrative 05/27/2021 8:29 PM PRINCIPAL NETWORK ENGINEER EXAM DESCRIPTION: ?? XR KNEE RIGHT 1 OR 2 VIEWS REASON FOR STUDY: ?? Pain s/p fall ?? Fall today. Right knee pain ?? TECHNIQUE: ??Two views COMPARISON: ??None available FINDINGS: No fracture or dislocation. ??No lytic or destructive process. Soft tissues are unremarkable without joint effusion. IMPRESSION: No acute findings right knee. THIS IS AN ELECTRONICALLY VERIFIED FINAL REPORT 05/27/2021 8:29 PM - Electronically signed by ??Asif MELO D: ??05/27/2021 8:29 PM T: Report ID: [id number] Reading Location: ??[id number] Procedure Note Asif Garber MD - 05/27/2021 EXAM DESCRIPTION: XR KNEE RIGHT 1 OR 2 VIEWS REASON FOR STUDY: Pain s/p fall Fall today. Right knee pain TECHNIQUE: Two views COMPARISON: None available FINDINGS: No fracture or dislocation. No lytic or destructive process. Soft tissues are unremarkable without joint effusion. IMPRESSION: No acute findings right knee. THIS IS AN ELECTRONICALLY VERIFIED FINAL REPORT 05/27/2021 8:29 PM - Electronically signed by Asif MELO T: Report ID: [id number] Reading Location: [id number] us Elizabeth SOFIA IMG XR PROCEDURES Final Result * CT Cervical Spine WO Contrast (05/27/2021 8:11 PM PRINCIPAL NETWORK ENGINEER) Anatomical Region Laterality Modality Spine N/A Computed Tomogra phy 05/27/2021 8:33 PM PRINCIPAL NETWORK ENGINEER Narrative 05/27/2021 8:37 PM PRINCIPAL NETWORK ENGINEER EXAM DESCRIPTION: ?? CT CERVICAL SPINE WO CONTRAST REASON FOR STUDY: ?? C-spine fracture, pathological ?? Pt arrives S/P GLF from standing today. ??Pt states she was walking her dog, he stopped real fast and she tripped over the top of her dog , hitting her head on a railroad tie ?? Denies LOC ?? Lac to right brow ?? + dizziness ? Pt states she had an intermittent feeling of not being able to speak, and her friends stated her speech was slurred ?? Speech is clear in triage ?? No blood thinners ? Denies neck pain ? TECHNIQUE: Axial images through the cervical spine with sagittal and coronal reformatted images. Automated exposure control was used as a dose optimization technique for this examination. COMPARISON: ?? None available FINDINGS: ALIGNMENT: ?? Normal. VERTEBRAE: ?? No fracture. Multiple subtle lucencies within vertebral bodies are nonspecific and could be related to bony trabeculation and osteopenia though lytic lesions such as multiple myeloma could give this appearance. ??Please correlate clinically. ?? Largest outbound call center representative lesion located in the dens measures 0.5 cm. DISCS: ?? Disc heights well-maintained. HARDWARE: ?? None in the spine. INDIVIDUAL DISC LEVELS: ?? No significant osseous spinal canal or neural foraminal stenosis. UPPER THORACIC: ?? Incompletely imaged. No significant osseous spinal stenosis or osseous neural foraminal stenosis. SKULL BASE: ?? No significant finding. LUNG APICES: ?? No significant abnormality. NECK SOFT TISSUES: ?? No significant abnormality. OTHER: ?? No other significant findings. IMPRESSION: ??No fracture or subluxation. Multiple lucencies throughout the cervical vertebra are nonspecific measuring up to 0.5 cm in the dens of C2, please correlate clinically for malignancy, consider multiple myeloma or even osteopenia. THIS IS AN ELECTRONICALLY VERIFIED FINAL REPORT 05/27/2021 8:37 PM - Electronically signed by ??Asif MELO D: ??05/27/2021 8:37 PM T: Report ID: [id number] Reading Location: ??[id number] Procedure Note Asif Garber MD - 05/27/2021 EXAM DESCRIPTION: CT CERVICAL SPINE WO CONTRAST REASON FOR STUDY: C-spine fracture, pathological Pt arrives S/P GLF from standing today. Pt states she was walking herdog, he stopped real fast and she tripped over the top of her dog , hitting herhead on a railroad tie Denies LOC Lac to right brow + dizziness Pt states she had an intermittent feeling of not being able to speak, and her friends stated her speech was slurred Speech is clear in triage Noblood thinners Denies neck pain TECHNIQUE: Axial images through the cervical spine with sagittal andcoronal reformatted images. Automated exposure control was used as a doseoptimization technique for this examination. COMPARISON: None available FINDINGS: ALIGNMENT: Normal. VERTEBRAE: No fracture. Multiple subtle lucencies within vertebral bodies are nonspecific andcould be related to bony trabeculation and osteopenia though lytic lesions such as multiple myeloma could give this appearance. Please correlate clinically. Largest outbound call center representative lesion located in the dens measures 0.5 cm. DISCS: Disc heights well-maintained. HARDWARE: None in the spine. INDIVIDUAL DISC LEVELS: No significant osseous spinal canal or neural foraminal stenosis. UPPER THORACIC: Incompletely imaged. No significant osseous spinalstenosis or osseous neural foraminal stenosis. SKULL BASE: No significant finding. LUNG APICES: No significant abnormality. NECK SOFT TISSUES: No significant abnormality. OTHER: No other significant findings. IMPRESSION: No fracture or subluxation. Multiple lucencies throughout the cervical vertebra are nonspecificmeasuring up to 0.5 cm in the dens of C2, please correlate clinically formalignancy, consider multiple myeloma or even osteopenia. THIS IS AN ELECTRONICALLY VERIFIED FINAL REPORT 05/27/2021 8:37 PM - Electronically signed by Asif MELO T: Report ID: [id number] Reading Location: [id number] us Elizabeth Mcmillantomas SOFIA IM CT PROCEDURES Final Result * CT Head WO Contrast (05/27/2021 8:11 PM PRINCIPAL NETWORK ENGINEER) Anatomical Region Laterality Modality Head and Neck N/A Computed Tomogra phy 05/27/2021 8:29 PM PRINCIPAL NETWORK ENGINEER Narrative 05/27/2021 8:33 PM PRINCIPAL NETWORK ENGINEER EXAM DESCRIPTION: ?? CT HEAD WO CONTRAST REASON FOR STUDY: ?? Subdural hemorrhage, follow-up, headache, s/p fall. Hematoma ?? Pt arrives S/P GLF from standing today. ??Pt states she was walking her dog, he stopped real fast and she tripped over the top of her dog , hitting her head on a railroad tie ?? Denies LOC ?? Lac to right brow ?? + dizziness ? Pt states she had an intermittent feeling of not being able to speak, and her friends stated her speech was slurred ?? Speech is clear in triage ?? No blood thinners ? Denies neck pain ? TECHNIQUE: Axial images acquired through the brain without intravenous contrast. ??Images stored on PACS. ?? Automated exposure control was used as a dose optimization technique for this examination. COMPARISON: ?? None available FINDINGS: BRAIN: ?? No hemorrhage, edema or mass effect. No recent infarct. ?Normal white matter. ? EXTRA-AXIAL SPACES: ?? No fluid collections. No masses. CALVARIUM: ?? No fracture. SINUSES/MASTOIDS: ?? Moderate mucoperiosteal thickening seen 0 8 and ethmoid sinuses as evidence of chronic sinusitis. ??Prior sinus surgery changes. ORBITS: ?? No significant abnormality. OTHER: ?? Preorbital soft tissue swelling on the right as evidence of contusion or hematoma. ??No involvement of the globe or intraconal contents. ??No adjacent bony abnormality. ??Adjacent intracranial abnormality. IMPRESSION: ??No acute intracranial findings. THIS IS AN ELECTRONICALLY VERIFIED FINAL REPORT 05/27/2021 8:33 PM - Electronically signed by ??Asif MELO D: ??05/27/2021 8:33 PM T: Report ID: [id number] Reading Location: ??[id number] Procedure Note Asif Garber MD - 05/27/2021 EXAM DESCRIPTION: CT HEAD WO CONTRAST REASON FOR STUDY: Subdural hemorrhage, follow-up, headache, s/p fall. Hematoma Pt arrives S/P GLF from standing today. Pt states she was walking herdog, he stopped real fast and she tripped over the top of her dog , hitting herhead on a railroad tie Denies LOC Lac to right brow + dizziness Pt states she had an intermittent feeling of not being able to speak, and her friends stated her speech was slurred Speech is clear in triage Noblood thinners Denies neck pain TECHNIQUE: Axial images acquired through the brain without intravenous contrast. Images stored on PACS. Automated exposure control was used asa dose optimization technique for this examination. COMPARISON: None available FINDINGS: BRAIN: No hemorrhage, edema or mass effect. No recent infarct. Normal white matter. EXTRA-AXIAL SPACES: No fluid collections. No masses. CALVARIUM: No fracture. SINUSES/MASTOIDS: Moderate mucoperiosteal thickening seen 0 8 andethmoid sinuses as evidence of chronic sinusitis. Prior sinus surgery changes. ORBITS: No significant abnormality. OTHER: Preorbital soft tissue swelling on the right as evidence ofcontusion or hematoma. No involvement of the globe or intraconal contents. Noadjacent bony abnormality. Adjacent intracranial abnormality. IMPRESSION: No acute intracranial findings. THIS IS AN ELECTRONICALLY VERIFIED FINAL REPORT 05/27/2021 8:33 PM - Electronically signed by Asif Garber M.D. RB T: Report ID: [id number] Reading Location: [id number] lEizabeth DEMPSEY CT PROCEDURES Final Result documented in this encounter Visit Diagnoses Diagnosis Fall, initial encounter- Primary Head injury, initial encounter Eyebrow laceration, right, initial encounter Neck pain Cervicalgia documented in this encounter Active and Recently Administered Medications Times are shown in PRINCIPAL NETWORK ENGINEER. Scheduled Medication Order 05/26/2021 05/27/2021 05/28/2021 lidocaine PF (XYLOCAINE) 10 mg/mL (1 %) preservative free injection 50 mg 50 mg (5 mL), subcutaneous, Once, On Sun05/27/21 at 2242, For 1 dose 2242 (Due) documented in this encounter Orders Medications Ordered That Kaushal ht Not Have Been Administered Count Last Ordered Date First Ordered Date lidocaine PF (XYLOCAINE) 10 mg/mL (1 %) preservative free injection - ADS Override Pull 1 05/27/2021 lidocaine PF (XYLOCAINE) 10 mg/mL (1 %) preservative free injection 50 mg 1 05/27/2021 sodium chloride 0.9% 0.9 % i rrigation - ADS Override Pull 1 05/27/2021 documented in this encounter Care Teams Project Drilling Engineer Relationship Specialty Start Date End Date Tae Mcfarland MD [address] [place] [address] PCP - General 06/18/20 documented as of this encounter
--- OUTSIDE RECORDS SUMMARY | 2024-06-10 07:04 | XMS_ITS | Encounter Summary ---
Author Organization [facility] Healthcare Address [address] [place] [address] Care Team Providers Care Buffing Wheel Operator Name Role Phone Tae Mcfarland MD Primary Care Provide r Reason for Visit * Episode Based Medications (Routine) - Closed Specialty Diagnoses / Procedures Referred By Contac t Referred To Contact Diagnoses Crohn's disease of large intestine without complication (CMS/HCC) (HCC) Myles Mahajan, DO [address] [place] [address] Phone: tel: fax: [facility] [address] [place] [phone] Phone: tel: fax: Referral ID Status Reason Start Date Expiration Date Visits Re quested Visits Authorized [id number] Closed 03/23/2022 04/22/2023 99 99 Encounter Details Date Type Department Care Team (Late st Contact Info) Description 03/27/2022 1:45 PM CDT Infusion [facility] [address] [address] Crohn's disease of large intestine [...] file 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:53 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 Gender Identity Not on file Sexual Orientation Not on file documented as of this encounter Last Filed Vital Signs Vital Sign Reading Time Taken Comments Blood Pressure 123/76 03/27/2022 1:52 PM CDT Pulse 92 03/27/2022 1:52 PM CDT Temperature 36.8 ??C (98.2 ??F) 03/27/2022 1:52 PM CD T Respiratory Rate - - Oxygen Saturation 95% 03/27/2022 1:52 PM CDT Inhaled Oxygen Concentration - - Weight 69.4 kg (153 lb) 03/27/2022 1:52 PM CDT Height - - Body Mass Index 27.98 05/27/2021 7:34 PM RETAIL EVENT AND SALES ASSISTANT documented in this encounter Progress Notes * Marian Vera RPh - 03/27/2022 1:45 PM CDT Pharmacy Note - Biotherapy Dose Rounding Infliximab or infliximab biosimilar has been rounded from 690 mg ( 10 mg/kg) to 700 mg per the MTS policy approved by [facility] Pharmacy and Therapeutics committee. [facility] Pharmacy and Therapeutics committee as approved the following: ?? 10% dose rounding policy for biotherapy agents to the nearest vial size Marian Vera RPh 03/27/22 2:00 PM documented in this encounter Nursing Notes * Erlinda Newell RN - 03/27/2022 1:45 PM CDT Arrival for Remicade infusion. Denies any recent infections or fevers. PIV started in LFA with + blood return and flushing well. Premeds given. Infusion titrated per protocol. Tolerated well. PIV removed. Next appt made. D/C'd ambulatory. documented in this encounter Plan of [...] 650 mg 650 mg, oral, Once, On Sun03/27/22 at 1430, For 1 dose, Give 30 minutes prior to infusion for infusion reaction prophylaxis.Indications:Crohn's disease of large intestine without complication (CMS/HCC) (HCC) Given 03/27/2022 2:04 PM CDT 650 mg diphenhydrAMINE (BENADRYL) tab/cap 25 mg 25 mg, oral, Once, On Sun03/27/22 at 1430, For 1 dose, Give 30 minutes prior to infusion for infusion reaction prophylaxis.Indications:Crohn's disease of large intestine without complication (CMS/HCC) (HCC) Given 03/27/2022 2:04 PM CDT 25 mg inFLIXimab (REMICADE) 700 mg in sodium chloride 0.9% 250 mL IVPB 700 mg, intravenous, Once, On Sun03/27/22 at 1500, For 1 dose, MAINTENANCE DOSE: Begin 4 [...] intestine without complication (CMS/HCC) (HCC) New Bag 03/27/2022 2:36 PM CDT 700 mg documented in this encounter Care Teams Buffing Wheel Operator Relationship Specialty Start Date End Date Tae Mcfarland MD [address] [place] [address] PCP - General 06/18/20 documented as of this encounter
--- OUTSIDE RECORDS SUMMARY | 2024-06-10 07:04 | XMS_ITS | Encounter Summary ---
Author Organization [facility] Healthcare Address [address] [place] [address] Care Team Providers Care Sewer Name Role Phone Tae Mcfarland MD Primary Care Provide r Reason for Visit * Reason Comments OP Infusion * Episode Based Medications (Routine) - Closed Specialty Diagnoses / Procedures Referred By Contac t Referred To Contact Diagnoses Crohn's disease of large intestine without complication (CMS/HCC) (HCC) Procedures [place] INFLIXIMAB NOT BIOSIMIL 10MG Myles Mahajan, DO [address] [place] [address] Phone: tel: fax: [facility] [address] [place] [phone] Phone: tel: fax: Referral ID Status Reason Start Date Expiration Date Visits Re quested Visits Authorized [id number] Closed 01/16/2021 07/29/2021 1 1 Encounter Details Date Type Department Care Team (Late st Contact Info) Description 09/02/2021 1:15 PM CDT Infusion [facility] [address] [address] Crohn's disease of large intestine [...] on file 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:53 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 Gender Identity Not on file Sexual Orientation Not on file documented as of this encounter Last Filed Vital Signs Vital Sign Reading Time Taken Comments Blood Pressure 131/84 09/02/2021 1:35 PM CDT Pulse 83 09/02/2021 1:35 PM CDT Temperature 36.2 ??C (97.1 ??F) 09/02/2021 1:35 PM CD T Respiratory Rate 18 09/02/2021 1:35 PM CDT Oxygen Saturation 97% 09/02/2021 1:35 PM CDT Inhaled Oxygen Concentration - - Weight 74.7 kg (164 lb 9.6 oz) 09/02/2021 1:17 P M CDT Height - - Body Mass Index 30.11 05/27/2021 7:34 PM RADIAL ARM 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 documented in this encounter Progress Notes * Marian Vera RPh - 09/02/2021 1:15 PM CDT Pharmacy Note - Biotherapy Dose Rounding Infliximab or infliximab biosimilar has been rounded from 740 mg ( 10 mg/kg) to 700 mg per the MTS policy approved by [facility] Pharmacy and Therapeutics committee. [facility] Pharmacy and Therapeutics committee as approved the following: ?? 10% dose rounding policy for biotherapy agents to the nearest vial size Marian Vera RPh 09/02/21 1:28 PM documented in this encounter Nursing Notes * Nabila Watt RN - 09/02/2021 1:15 PM CDT Pt arrives for remicade infusion today. Denies any recent fevers or infections. TB expires 12/28/21.Premeds given. PIV started, + blood return noted. Tolerated infusion well and titrated per orders. PIV removed and pressure dressing applied. Schedule confirmed. Patient d/c in stable condition per ambulatory. documented in this encounter Plan of Treatment Not on file documented as of this encounter Visit Diagnoses Diagnosis Crohn's disease of large intestine without complication (CMS/HCC) ([facility])- Primary documented in this encounter Administered Medications Inactive Administered Medications - up to 3 most recent administrations Medication Order MAR Action Action Date Dose Rate Site acetaminophen (TYLENOL) tablet 650 mg 650 mg, oral, Once, On Sun09/02/21 at 1400, For 1 dose, Give 30 minutes prior to infusion for infusion reaction prophylaxis.Indications:Crohn 's disease of large intestine without complication (CMS/HCC) ([facility]) Given 09/02/2021 1:18 PM CDT 650 mg diphenhydrAMINE (BENADRYL) tab/cap 25 mg 25 mg, oral, Once, On Sun09/02/21 at 1400, For 1 dose, Give 30 minutes prior to infusion for infusion reaction prophylaxis.Indications:Crohn 's disease of large intestine without complication (CMS/HCC) ([facility]) Given 09/02/2021 1:19 PM CDT 25 mg inFLIXimab (REMICADE) 700 mg in sodium chloride 0.9% 250 mL IVPB 700 mg, intravenous, Once, On Sun09/02/21 at 1430, For 1 dose, MAINTENANCE DOSE: Begin 4 [...] INFUSION. Use 1.2 micron filter or less, low-sorbing.Indications:Crohn 's disease of large intestine without complication (CMS/HCC) ([facility]) New Bag 09/02/2021 1:54 PM CDT 700 mg sodium chloride 0.9% infusion 50 mL/hr, intravenous, Continuous, Starting on Sun09/02/21 at 1400Indications:Crohn's disease of large intestine without complication (CMS/HCC) ([facility]) New Bag 09/02/2021 1:45 PM CDT 50 mL/hr 50 mL/hr documented in this encounter Orders Nursing Count Last Ordered Date First Orde red Date HEIGHT AND WEIGHT 1 09/02/2021 NURSING COMMUNICATION 1 09/02/2021 ONCBCN PROVIDER COMMUNICATION 1 1 2 VITAL SIGNS INTRA-INFUSION 1 09/02/2021 documented in this encounter Care Teams Sewer Relationship Specialty Start Date End Date Tae Mcfarland MD [address] [place] [address] PCP - General 06/18/20 documented as of this encounter
--- OUTSIDE RECORDS SUMMARY | 2024-06-10 07:04 | XMS_ITS | Encounter Summary ---
Author Organization [facility] Healthcare Address [address] [place] [address] Care Team Providers Care Administrative Office Clerk Name Role Phone Tae Mcfarland MD Primary Care Provide r Reason for Visit * Reason Comments OP Infusion * Episode Based Medications (Routine) - Closed Specialty Diagnoses / Procedures Referred By Contac t Referred To Contact Diagnoses Crohn's disease of large intestine without complication (CMS/HCC) (HCC) Procedures [place] INJ. AVSOLA, 10 MG Myles aMhajan, DO [address] [place] [place] [address] Phone: tel: fax: [facility] [address] [place] [phone] Phone: tel: fax: Referral ID Status Reason Start Date Expiration Date Visits Re quested Visits Authorized [id number] Closed 08/13/2020 02/13/2021 1 1 Encounter Details Date Type Department Care Team (Late st Contact Info) Description 03/04/2021 8:30 AM CDT Infusion [facility] [address] [address] Crohn's disease of large intestine [...] on file 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:53 AM 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 Gender Identity Not on file Sexual Orientation Not on file documented as of this encounter Last Filed Vital Signs Vital Sign Reading Time Taken Comments Blood Pressure 112/69 03/04/2021 8:33 AM CDT Pulse 69 03/04/2021 8:33 AM CDT Temperature 35.8 ??C (96.5 ??F) 03/04/2021 8:33 AM CD T Respiratory Rate 18 03/04/2021 8:33 AM CDT Oxygen Saturation 100% 03/04/2021 8:33 AM CDT Inhaled Oxygen Concentration - - Weight 74.2 kg (163 lb 8 oz) 03/04/2021 8:33 AM CDT Height - - Body Mass Index 28.96 06/18/2020 8:13 AM 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 documented in this encounter Progress Notes * Christine Denton RP - 03/04/2021 8:30 AM CDT Pharmacy Note - Biotherapy Dose Rounding Infliximab or infliximab biosimilar has been rounded from 750 mg ( 10 mg/kg based on ABW) to 700 mgper the MTS policy approved by [facility] Pharmacy and Therapeutics committee. [facility] Pharmacy and Therapeutics committee as approved the following: ?? 10% dose rounding policy for biotherapy agents to the nearest vial size Christine Denton RPh 03/04/21 8:36 AM documented in this encounter Nursing Notes * Estee [place], LETICIA - 03/04/2021 8:30 AM CDT Arrival for Remicade. Pt not feeling great today. C/o pain 5/10 in her abdomen from her Chron's. PIV started, + blood return noted. Remicade titrated per protocol. Tolerated well. PIV removed. Next 2appts made. Dsicharged ambulatory. documented in this encounter Plan of [...] 650 mg 650 mg, oral, Once, On Sun03/04/21 at 0915, For 1 dose, Give 30 minutes prior to infusion for infusion reaction prophylaxis.Indications:Crohn's disease of large intestine without complication (CMS/HCC) (HCC) Given 03/04/2021 8:38 AM CDT 650 mg diphenhydrAMINE (BENADRYL) tab/cap 25 mg 25 mg, oral, Once, On Sun03/04/21 at 0915, For 1 dose, Give 30 minutes prior to infusion for infusion reaction prophylaxis.Indications:Crohn's disease of large intestine without complication (CMS/HCC) (HCC) Given 03/04/2021 8:38 AM CDT 25 mg inFLIXimab (REMICADE) 700 mg in sodium chloride 0.9% 250 mL IVPB 700 mg, intravenous, Once, On Sun03/04/21 at 0930, For 1 dose, MAINTENANCE DOSE: [...] intestine without complication (CMS/HCC) (HCC) New Bag 03/04/2021 8:52 AM CDT 700 mg documented in this encounter Care Teams Administrative Office Clerk Relationship Specialty Start Date End Date Tae Mcfarland MD [address] [place] [address] PCP - General 06/18/20 documented as of this encounter
--- OUTSIDE RECORDS SUMMARY | 2024-06-10 07:04 | XMS_ITS | Encounter Summary ---
Author Organization [facility] Healthcare Address [address] [place] [address] Care Team Providers Care Wildlife Conservation Professor Name Role Phone Tae Mcfarland MD Primary Care Provide r Reason for Visit * Reason Comments OP Infusion * Episode Based Medications (Routine) - Closed Specialty Diagnoses / Procedures Referred By Contac t Referred To Contact Diagnoses Crohn's disease of large intestine without complication (CMS/HCC) (HCC) Procedures [place] INJ. AVSOLA, 10 MG Myles Mahajan, DO [address] [place] [address] Phone: tel: fax: [facility] [address] [place] [phone] Phone: tel: fax: Referral ID Status Reason Start Date Expiration Date Visits Re quested Visits Authorized [id number] Closed 08/13/2020 02/13/2021 1 1 Encounter Details Date Type Department Care Team (Late st Contact Info) Description 08/20/2020 1:00 PM SAND CONDITIONER Infusion [facility] [address] [place] [phone] Crohn's disease of large intestine without complication (CMS/HCC) (Primary Dx) Social History Tobacco Use Types Packs/Day Years Used Date Smoking Tobacco: Former Smokeless Tobacco: Never Alcohol Use Standard Drinks/Week Comments Yes 1 (1 standard drink = 0.6 oz pur e alcohol) Comments Unknown Sex and Gender Information Value Date Recorded Sex Assigned at Not on file 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:53 AM SAND CONDITIONER Gender Identity Not on file Sexual Orientation Not on file documented as of this encounter Last Filed Vital Signs Vital Sign Reading Time Taken Comments Blood Pressure 113/55 08/20/2020 1:28 PM SAND CONDITIONER Pulse 95 08/20/2020 1:28 PM SAND CONDITIONER Temperature 36.6 ??C (97.8 ??F) 08/20/2020 1:28 PM CS T Respiratory Rate 16 08/20/2020 1:28 PM SAND CONDITIONER Oxygen Saturation - - Inhaled Oxygen Concentration - - Weight 79.2 kg (174 lb 8 oz) 08/20/2020 1:05 PM SAND CONDITIONER Height - - Body Mass Index 30.91 06/18/2020 8:13 AM SAND CONDITIONER documented in this encounter Nursing Notes * lAyssa Vargas, LETICIA - 08/20/2020 1:00 PM CST Pt here for avsola infusion, no new issues to report, denies any fever or sxs infection. Positive blood return from IV, tolerated infusion. Confirmed next 2 appts, d/c ambulatory. CONDITIONER documented in this encounter Plan of Treatment Not on file documented as of this encounter Visit Diagnoses Diagnosis Crohn's disease of large intestine without complication (CMS/HCC) (HCC)- Primary documented in this encounter Administered Medications Inactive Administered Medications - up to 3 most recent administrations Medication Order MAR Action Action Date Dose Rate Site acetaminophen (TYLENOL) tablet 650 mg 650 mg, oral, Once, On Sun08/20/20 at 1345, For 1 doseIndications:Crohn's disease of large intestine without complication (CMS/HCC) (HCC) Given 08/20/2020 1:18 PM SAND CONDITIONER 650 mg diphenhydrAMINE (BENADRYL) tab/cap 25 mg 25 mg, oral, Once, On Sun08/20/20 at 1345, For 1 doseIndications:Crohn's disease of large intestine without complication (CMS/HCC) (HCC) Given 08/20/2020 1:18 PM SAND CONDITIONER 25 mg infliximab-axxq (AVSOLA) 790 mg in sodium chloride 0.9% 500 mL IVPB 790 mg (rounded from 792 mg = 10 mg/kg ? 79.2 kg), intravenous, Administer over 2 Hours, Once, On Sun08/20/20 at 1345, For 1 dose, Infuse with filter tubing [...] completed. Use 1.2 micron filter or less, low sorbing.Indications:Crohn's disease of large intestine without complication (CMS/HCC) (HCC) New Bag 08/20/2020 1:41 PM SAND CONDITIONER 790 mg documented in this encounter Orders Nursing Count Last Ordered Date First Orde red Date MAINTAIN VITAL SIGNS 1 08/20/2020 NURSING COMMUNICATION 1 08/20/2020 documented in this encounter Care Teams Wildlife Conservation Professor Relationship Specialty Start Date End Date Tae Mcfarland MD [address] [place] [address] PCP - General 06/18/20 documented as of this encounter
--- OUTSIDE RECORDS SUMMARY | 2024-06-10 07:04 | XMS_ITS | Encounter Summary ---
Author Organization [facility] Healthcare Address [address] [place] [address] Care Team Providers Care Quarry Supervisor Name Role Phone Tae Mcfarland MD Primary Care Provide r Reason for Visit * Reason Comments OP Infusion * Episode Based Medications (Routine) - Closed Specialty Diagnoses / Procedures Referred By Contac t Referred To Contact Diagnoses Crohn's disease of large intestine without complication (CMS/HCC) (HCC) Procedures [place] INFLIXIMAB NOT BIOSIMIL 10MG Myles Mahajan, DO [address] [place] [address] Phone: tel: fax: [facility] [address] [place] [phone] Phone: tel: fax: Referral ID Status Reason Start Date Expiration Date Visits Re quested Visits Authorized [id number] Closed 01/16/2021 07/29/2021 1 1 Encounter Details Date Type Department Care Team (Late st Contact Info) Description 01/20/2022 8:30 AM CDT Infusion [facility] [address] [phone] Crohn's disease of large intestine [...] on file 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:53 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 Gender Identity Not on file Sexual Orientation Not on file documented as of this encounter Last Filed Vital Signs Vital Sign Reading Time Taken Comments Blood Pressure 99/68 01/20/2022 8:24 AM CDT Pulse 82 01/20/2022 8:24 AM CDT Temperature 36.4 ??C (97.5 ??F) 01/20/2022 8:24 AM CD T Respiratory Rate 20 01/20/2022 8:24 AM CDT Oxygen Saturation 94% 01/20/2022 8:24 AM CDT Inhaled Oxygen Concentration - - Weight 73.5 kg (162 lb) 01/20/2022 8:24 AM CDT Height - - Body Mass Index 29.63 05/27/2021 7:34 PM FORGING DIES FINAL FINISHER documented in this encounter Progress Notes * Christine Denton RP - 01/20/2022 8:30 AM CDT Pharmacy Note - Biotherapy [...] the nearest vial size Christine Denton RPh 01/20/22 8:38 AM documented in this encounter Nursing Notes * Stacie Wu RN - 01/20/2022 8:30 AM CDT Pt aware of next appt 02/17, Sent a message to Yan Alfonso regarding auth expiring 01/27. No issues voiced. Pt in right foot boot for last 7 weeks. IV placed to right AC pre meds given. 30 min wait time done. beth treatment well, Needle removed and d/c to home documented in this encounter Plan of Treatment Not on file documented as of this encounter Visit Diagnoses Diagnosis Crohn's disease of large intestine without complication (CMS/HCC) ([facility])- Primary documented in this encounter Administered Medications Inactive Administered Medications - up to 3 most recent administrations Medication Order MAR Action Action Date Dose Rate Site acetaminophen (TYLENOL) tablet 650 mg 650 mg, oral, Once, On Sun01/20/22 at 0915, For 1 dose, Give 30 minutes prior to infusion for infusion reaction prophylaxis.Indications:Crohn 's disease of large intestine without complication (CMS/HCC) ([facility]) Given 01/20/2022 8:38 AM CDT 650 mg diphenhydrAMINE (BENADRYL) tab/cap 25 mg 25 mg, oral, Once, On Sun01/20/22 at 0915, For 1 dose, Give 30 minutes prior to infusion for infusion reaction prophylaxis.Indications:Crohn 's disease of large intestine without complication (CMS/HCC) ([facility]) Given 01/20/2022 8:39 AM CDT 25 mg inFLIXimab (REMICADE) 700 mg in sodium chloride 0.9% 250 mL IVPB 700 mg, intravenous, Once, On Sun01/20/22 at 0945, For 1 dose, MAINTENANCE DOSE: [...] of large intestine without complication (CMS/HCC) ([facility]) New Bag 01/20/2022 9:09 AM CDT 700 mg sodium chloride 0.9% infusion 50 mL/hr, intravenous, Continuous, Starting on Sun01/20/22 at 0915Indications:Crohn's disease of large intestine without complication (CMS/HCC) (HCC) New Bag 01/20/2022 8:39 AM CDT 50 mL/hr 50 mL/hr documented in this encounter Orders Nursing Count Last Ordered Date First Orde red Date HEIGHT AND WEIGHT 1 01/20/2022 NURSING COMMUNICATION 1 01/20/2022 VITAL SIGNS INTRA-INFUSION 1 01/20/2022 documented in this encounter Care Teams Quarry Supervisor Relationship Specialty Start Date End Date Tae Mcfarland MD [address] [place] [address] PCP - General 06/18/20 documented as of this encounter
--- OUTSIDE RECORDS SUMMARY | 2024-06-10 07:04 | XMS_ITS | Encounter Summary ---
Author Organization [facility] Healthcare Address [address] [place] [address] Care Team Providers Care Dress Cutter Name Role Phone Tae Mcfarland MD Primary Care Provide r Encounter Details Date Type Department Care Team (Late st Contact Info) Description 12/23/2021 Orders Only [facility] [place] [place] [phone] Christine Denton, [facility] Social History Tobacco Use Types Packs/Day Years Used Date Smoking Tobacco: Former Smokeless Tobacco: Never Alcohol Use Standard Drinks/Week Comments Yes 1 (1 standard drink = 0.6 oz pur e alcohol) Comments Unknown Sex and Gender Information Value Date Recorded Sex Assigned at Not on file 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:53 AM 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
--- OUTSIDE RECORDS SUMMARY | 2024-06-10 07:04 | XMS_ITS | Encounter Summary ---
Author Organization [facility] Healthcare Address [address] [place] [address] Care Team Providers Care Electronic Specialist Name Role Phone Tae Mcfarland MD Primary Care Provide r Encounter Details Date Type Department Care Team (Late st Contact Info) Description 12/23/2021 8:15 AM CDT Lab [facility] Lab [facility] [place] [place] [id number] Crohn's disease of large intestine without complication (CMS/HCC) (HCC) Social History Tobacco Use Types Packs/Day Years Used Date Smoking Tobacco: Former Smokeless Tobacco: Never Alcohol Use Standard Drinks/Week Comments Yes 1 (1 standard drink = 0.6 oz pur e alcohol) Comments Unknown Sex and Gender Information Value Date Recorded Sex Assigned at Not on file 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:53 AM TAX PROCESSOR Gender Identity Not on file Sexual Orientation Not on file documented as of this encounter Plan of Treatment Not on file documented as of this encounter Procedures Procedure Name Priority Date/Time Associated Diagnosis Comments TB TEST, QUANTIFERON GOLD Routine 12/23/2021 8:08 AM CDT Crohn's disease of large intestine without complication (CMS/HCC) (HCC) documented in this encounter Results * TB test, quantiferon gold (12/23/2021 8:08 AM CDT) Quantiferon TB Gold Negative Negative [facility] Comment: No interferon-gamma response to M. tuberculosis [...] Interferon-gamma level <0.35 IU/mL. TB-Nil 0.00 IUnits/mL [facility] TB2-Nil 0.00 IUnits/mL [facility] Mitogen-Nil 10.00 IUnits/mL [facility] NIL 0.00 IUnits/mL [facility] Comment: Test Performed by: [facility] [address] [place] [address] Timber Management Professor: Albert Tirado M.D. Ph.D.; CLIA# [id number] Blood 12/23/2021 8:08 AM CDT 12/23/2021 8:25 AM CDT us Myles Mahajan DO LAB BLOOD ORDERABLES Final Res ult [facility] [address] Department [place] [address] documented in this encounter Visit Diagnoses Diagnosis Crohn's disease of large intestine without complication (CMS/HCC) (HCC) documented in this encounter Care Teams Electronic Specialist Relationship Specialty Start Date End Date Tae Mcfarland MD [address] [place] [address] PCP - General 06/18/20 documented as of this encounter
--- OUTSIDE RECORDS SUMMARY | 2024-06-10 07:04 | XMS_ITS | Encounter Summary ---
Author Organization [facility] Healthcare Address [address] [place] [address] Care Team Providers Care Patient Registration Manager Name Role Phone Tae Mcfarland MD Primary Care Provide r Reason for Visit * Reason Comments OP Infusion * Episode Based Medications (Routine) - Closed Specialty Diagnoses / Procedures Referred By Contac t Referred To Contact Diagnoses Crohn's disease of large intestine without complication (CMS/HCC) (HCC) Procedures [place] INJ. 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 Gender Identity Not on file Sexual Orientation Not on file documented as of this encounter Last Filed Vital Signs Vital Sign Reading Time Taken Comments Blood Pressure 112/67 01/07/2021 8:37 AM CDT Pulse 74 01/07/2021 8:37 AM CDT Temperature 36.3 ??C (97.3 ??F) 01/07/2021 8:37 AM CD T Respiratory Rate 16 01/07/2021 8:37 AM CDT Oxygen Saturation 99% 01/07/2021 8:37 AM CDT Inhaled Oxygen Concentration - - Weight 74 kg (163 lb 3.2 oz) 01/07/2021 8:37 AM CDT Height - - Body Mass Index 28.91 06/18/2020 8:13 AM SENIOR MANAGER ASSET PROTECTION documented in this encounter Progress Notes * Sherine Reyna RPh - 01/07/2021 8:30 AM CDT Pharmacy Note - Biotherapy Dose Rounding Infliximab or infliximab biosimilar has been rounded from 740 mg ( 10 mg/kg based on ABW) to 800 mgper the MTS policy approved by [facility] Pharmacy and Therapeutics committee. [facility] Pharmacy and Therapeutics committee as approved the following: ?? 10% dose rounding policy for biotherapy agents to the nearest vial size Sherine Reyna PharmD, BCPS Clinical Pharmacist 01/07/21 8:51 AM documented in this encounter Nursing Notes * Maria Del Carmen Vera RN - 01/07/2021 8:30 AM CDT Pt arrives for Avsola infusion. Pt denies any recent fevers/infections. PIV started, + blood returnnoted. Premeds given. Pt tolerated treatment well. Titrated over 2 hours per order set. PIV removed, pressure dressing applied. Pt discharged in stable condition per ambulatory. Schedule confirmed. Deng Quiñones documented in this encounter Plan of Treatment Not on file documented as of this encounter Visit Diagnoses Diagnosis Crohn's disease of large intestine without complication (CMS/HCC) ([facility])- Primary documented in this encounter Administered Medications Inactive Administered Medications - up to 3 most recent administrations Medication Order MAR Action Action Date Dose Rate Site acetaminophen (TYLENOL) tablet 650 mg 650 mg, oral, Once, On Sun01/07/21 at 0915, For 1 dose, 30 min prior to treatmentIndications:Crohn's disease of large intestine without complication (CMS/HCC) ([facility]) Given 01/07/2021 8:44 AM CDT 650 mg diphenhydrAMINE (BENADRYL) tab/cap 25 mg 25 mg, oral, Once, On Sun01/07/21 at 0915, For 1 dose, 30 min prior to treatmentIndications:Crohn's disease of large intestine without complication (CMS/HCC) ([facility]) Given 01/07/2021 8:44 AM CDT 25 mg inFLIXimab-axxq (AVSOLA) 800 mg in sodium chloride 0.9% 250 mL IVPB 800 mg, intravenous, Administer over 2 Hours, Once, On Sun01/07/21 at 0915, For 1 dose, Infuse with filter tubing [...] disease of large intestine without complication (CMS/HCC) ([facility]) New Bag 01/07/2021 9:30 AM CDT 800 mg documented in this encounter Orders Nursing Count Last Ordered Date First Orde red Date MAINTAIN VITAL SIGNS 01/07/2021 NURSING COMMUNICATION 01/07/2021 ONCBCN PROVIDER COMMUNICATION 1 1 documented in this encounter Care Teams Patient Registration Manager Relationship Specialty Start Date End Date Tae Mcfarland MD [address] [facility] [address] PCP - General 06/18/20 documented as of this encounter
--- OUTSIDE RECORDS SUMMARY | 2024-06-10 07:04 | XMS_ITS | Encounter Summary ---
Author Organization [facility] Healthcare Address [address] [place] [address] Care Team Providers Care Sustainability Purchasing Agent Name Role Phone Tae Mcfarland MD Primary Care Provide r Reason for Visit * Episode Based Medications (Routine) - Closed Specialty Diagnoses / Procedures Referred By Contac t Referred To Contact Diagnoses Crohn's disease of large intestine without complication (CMS/HCC) (HCC) Procedures [place] INFLIXIMAB NOT BIOSIMIL 10MG Myles Mahajan, DO [address] [place] [place] [address] Phone: tel: fax: [facility] [address] [place] [phone] Phone: tel: fax: Referral ID Status Reason Start Date Expiration Date Visits Re quested Visits Authorized [id number] Closed 01/16/2021 07/29/2021 1 1 Encounter Details Date Type Department Care Team (Late st Contact Info) Description 11/25/2021 8:30 AM CDT Infusion [facility] [address] [address] Crohn's disease of large intestine [...] on file 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 Gender Identity Not on file Sexual Orientation Not on file documented as of this encounter Last Filed Vital Signs Vital Sign Reading Time Taken Comments Blood Pressure 109/66 11/25/2021 8:38 AM CDT Pulse 64 11/25/2021 8:38 AM CDT Temperature 36.1 ??C (97 ??F) 11/25/2021 8:38 AM CDT Respiratory Rate 16 11/25/2021 8:38 AM CDT Oxygen Saturation - - Inhaled Oxygen Concentration - - Weight 71.7 kg (158 lb) 11/25/2021 8:38 AM CDT Height - - Body Mass Index 28.9 05/27/2021 7:34 PM MANAGER MARKET documented in this encounter Progress Notes * Marian Vera RPh - 11/25/2021 8:30 AM CDT Pharmacy Note - Biotherapy Dose Rounding Infliximab or infliximab biosimilar has been rounded from 720 mg ( 10 mg/kg) to 700 mg per the MTS policy approved by [facility] Pharmacy and Therapeutics committee. [facility] Pharmacy and Therapeutics committee as approved the following: ?? 10% dose rounding policy for biotherapy agents to the nearest vial size Marian Vera RPh 11/25/21 8:46 AM documented in this encounter Nursing Notes * Mark Sibley RN - 11/25/2021 8:30 AM CDT Pt arrives for Remicade infusion today. Pt denies any recent fevers/infections. PIV started, + blood return noted. Premeds given. Pt tolerated infusion well. Titrated over 2 hours per order set. PIV removed, pressure dressing applied. Pt discharged in stable condition per ambulatory. Schedule made,has appt for TB test with next visit. documented in this encounter Plan of Treatment Not on file documented as of this encounter Visit Diagnoses Diagnosis Crohn's disease of large intestine without complication (CMS/HCC) (HCC)- Primary documented in this encounter Administered Medications Inactive Administered Medications - up to 3 most recent administrations Medication Order MAR Action Action Date Dose Rate Site acetaminophen (TYLENOL) tablet 650 mg 650 mg, oral, Once, On Sun11/25/21 at 0915, For 1 dose, Give 30 minutes prior to infusion for infusion reaction prophylaxis.Indications:Crohn 's disease of large intestine without complication (CMS/HCC) ([facility]) Given 11/25/2021 8:58 AM CDT 650 mg diphenhydrAMINE (BENADRYL) tab/cap 25 mg 25 mg, oral, Once, On Sun11/25/21 at 0915, For 1 dose, Give 30 minutes prior to infusion for infusion reaction prophylaxis.Indications:Crohn 's disease of large intestine without complication (CMS/HCC) ([facility]) Given 11/25/2021 8:52 AM CDT 25 mg inFLIXimab (REMICADE) 700 mg in sodium chloride 0.9% 250 mL IVPB 700 mg, intravenous, Once, On Sun11/25/21 at 0945, For 1 dose, MAINTENANCE DOSE: [...] large intestine without complication (CMS/HCC) ([facility]) New Bag 11/25/2021 9:14 AM CDT 700 mg sodium chloride 0.9% infusion 50 mL/hr, intravenous, Continuous, Starting on Sun11/25/21 at 0915Indications:Crohn's disease of large intestine without complication (CMS/HCC) ([facility]) New Bag 11/25/2021 9:02 AM CDT 50 mL/hr 50 mL/hr documented in this encounter Orders Nursing Count Last Ordered Date First Orde red Date HEIGHT AND WEIGHT 1 11/25/2021 NURSING COMMUNICATION 1 11/25/2021 ONCBCN PROVIDER COMMUNICATION 1 1 2 VITAL SIGNS INTRA-INFUSION 1 11/25/2021 documented in this encounter Care Teams Sustainability Purchasing Agent Relationship Specialty Start Date End Date Tae Mcfarland MD [address] [place] [address] PCP - General 06/18/20 documented as of this encounter
--- OUTSIDE RECORDS SUMMARY | 2024-06-10 07:04 | XMS_ITS | Encounter Summary ---
Author Organization [facility] Healthcare Address [address] [place] [address] Care Team Providers Care Securities Supervisor Name Role Phone Tae Mcfarland MD Primary Care Provide r Reason for Visit * Reason Comments OP Infusion * Episode Based Medications (Routine) - Closed Specialty Diagnoses / Procedures Referred By Contac t Referred To Contact Diagnoses Crohn's disease of large intestine without complication (CMS/HCC) (HCC) Procedures [place] INFLIXIMAB NOT BIOSIMIL 10MG Myles Mahajan, DO [address] [place] [address] Phone: tel: fax: [facility] [address] [place] [phone] Phone: tel: fax: Referral ID Status Reason Start Date Expiration Date Visits Re quested Visits Authorized [id number] Closed 01/16/2021 07/29/2021 1 1 Encounter Details Date Type Department Care Team (Late st Contact Info) Description 09/30/2021 8:30 AM CDT Infusion [facility] [address] [address] Crohn's disease of large intestine [...] on file 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 Gender Identity Not on file Sexual Orientation Not on file documented as of this encounter Last Filed Vital Signs Vital Sign Reading Time Taken Comments Blood Pressure 117/78 09/30/2021 8:34 AM CDT Pulse 65 09/30/2021 8:34 AM CDT Temperature 36.2 ??C (97.2 ??F) 09/30/2021 8:34 AM CD T Respiratory Rate 18 09/30/2021 8:34 AM CDT Oxygen Saturation 99% 09/30/2021 8:34 AM CDT Inhaled Oxygen Concentration - - Weight 73 kg (160 lb 14.4 oz) 09/30/2021 8:34 AM CDT Height - - Body Mass Index 29.43 05/27/2021 7:34 PM SUPERVISOR COLOR PASTE MIXING documented in this encounter Progress Notes * Christine Denton RP - 09/30/2021 8:30 AM CDT Pharmacy Note - Biotherapy Dose Rounding Infliximab or infliximab biosimilar has been rounded from 730 mg ( 10 mg/kg) to 700 mg per the MTS policy approved by [facility] Pharmacy and Therapeutics committee. [facility] Pharmacy and Therapeutics committee as approved the following: ?? 10% dose rounding policy for biotherapy agents to the nearest vial size Christine Denton RPh 09/30/21 8:42 AM documented in this encounter Nursing Notes * Maria Del Carmen Vera RN - 09/30/2021 8:30 AM CDT Pt arrives for Remicade [...] disease of large intestine without complication (CMS/HCC) ([facility])- Primary documented in this encounter Administered Medications Inactive Administered Medications - up to 3 most recent administrations Medication Order MAR Action Action Date Dose Rate Site acetaminophen (TYLENOL) tablet 650 mg 650 mg, oral, Once, On Sun09/30/21 at 0915, For 1 dose, Give 30 minutes prior to infusion for infusion reaction prophylaxis.Indications:Crohn's disease of large intestine without complication (CMS/HCC) (HCC) Given 09/30/2021 8:43 AM CDT 650 mg diphenhydrAMINE (BENADRYL) tab/cap 25 mg 25 mg, oral, Once, On Sun09/30/21 at 0915, For 1 dose, Give 30 minutes prior to infusion for infusion reaction prophylaxis.Indications:Crohn's disease of large intestine without complication (CMS/HCC) (HCC) Given 09/30/2021 8:43 AM CDT 25 mg inFLIXimab (REMICADE) 700 mg in sodium chloride 0.9% 250 mL IVPB 700 mg, intravenous, Once, On Sun09/30/21 at 0945, For 1 dose, MAINTENANCE DOSE: [...] disease of large intestine without complication (CMS/HCC) ([facility]) New Bag 09/30/2021 9:20 AM CDT 700 mg documented in this encounter Orders Nursing Count Last Ordered Date First Orde red Date HEIGHT AND WEIGHT 1 09/30/2021 NURSING COMMUNICATION 1 09/30/2021 ONCBCN PROVIDER COMMUNICATION 1 1 04/22/202 2 VITAL SIGNS INTRA-INFUSION 1 09/30/2021 documented in this encounter Care Teams Securities Supervisor Relationship Specialty Start Date End Date Tae Mcfarland MD [address] [place] [address] PCP - General 06/18/20 documented as of this encounter
--- OUTSIDE RECORDS SUMMARY | 2024-06-10 07:04 | XMS_ITS | Encounter Summary ---
Author Organization [facility] Healthcare Address [address] [place] [address] Care Team Providers Care Frame Stripper Name Role Phone Tae Mcfarland MD Primary Care Provide r Encounter Details Date Type Department Care Team (Late st Contact Info) Description 03/03/[address] 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
--- OUTSIDE RECORDS SUMMARY | 2024-06-10 07:04 | XMS_ITS | Encounter Summary ---
Author Organization [facility] Healthcare Address [address] [place] [address] Care Team Providers Care Infection Control Specialist Name Role Phone Tae Mcfarland MD Primary Care Provide r Encounter Details Date Type Department Care Team (Late st Contact Info) Description 2022 Orders Only [facility] [address] [place] [address] Pauline Almanzar, RN Social History Tobacco Use Types Packs/Day Years Used Date Smoking Tobacco: Former Smokeless Tobacco: Never Alcohol Use Standard Drinks/Week Comments Yes 1 (1 standard drink = 0.6 oz pur e alcohol) Comments Unknown Sex and Gender Information Value Date Recorded Sex Assigned at Not on file 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
--- OUTSIDE RECORDS SUMMARY | 2024-06-10 07:04 | XMS_ITS | Encounter Summary ---
Author Organization [facility] Healthcare Address [address] [place] [address] Care Team Providers Care Pmp Certified Project Manager Name Role Phone Tae Mcfarland MD Primary Care Provide r Reason for Visit * Reason Comments OP Infusion * Episode Based Medications (Routine) - Closed Specialty Diagnoses / Procedures Referred By Contac t Referred To Contact Diagnoses Crohn's disease of large intestine without complication (CMS/HCC) (HCC) Procedures [place] INJ. AVSOLA, 10 MG Myles Mahajan, DO [address] [place] [address] Phone: tel: fax: [facility] [address] [place] [phone] Phone: tel: fax: Referral ID Status Reason Start Date Expiration Date Visits Re quested Visits Authorized [id number] Closed 08/13/2020 02/13/2021 1 1 Encounter Details Date Type Department Care Team (Late st Contact Info) Description 12/10/2020 8:30 AM CDT Infusion [facility] [address] [address] Crohn's disease of large intestine without complication (CMS/HCC) ([facility]) Social History Tobacco Use Types Packs/Day Years Used Date Smoking Tobacco: Former Smokeless Tobacco: Never Alcohol Use Standard Drinks/Week Comments Yes 1 (1 standard drink = 0.6 oz pur e alcohol) Comments Unknown Sex and Gender Information Value Date Recorded Sex Assigned at Not on file 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:53 AM DIRECTOR OF CHILD WELFARE SERVICES Gender Identity Not on file Sexual Orientation Not on file documented as of this encounter Last Filed Vital Signs Vital Sign Reading Time Taken Comments Blood Pressure - - Pulse - - Temperature - - Respiratory Rate - - Oxygen Saturation - - Inhaled Oxygen Concentration - - Weight 76.3 kg (168 lb 3.2 oz) 12/10/2020 8:33 A M CDT Height - - Body Mass Index 29.8 06/18/2020 8:13 AM DIRECTOR OF CHILD WELFARE SERVICES documented in this encounter Progress Notes * Marian Vera RPh - 12/10/2020 8:30 AM CDT Pharmacy Note - Biotherapy Dose Rounding Infliximab or infliximab biosimilar has been rounded from 760 mg ( 10 mg/kg based on ABW) to 800 mgper the MTS policy approved by [facility] Pharmacy and Therapeutics committee. [facility] Pharmacy and Therapeutics committee as approved the following: ?? 10% dose rounding policy for biotherapy agents to the nearest vial size Marian Vera RPh 12/10/20 8:42 AM documented in this encounter Nursing Notes * Heaven Heard RN - 12/10/2020 8:30 AM CDT Arrives for treatment. VS and symptoms reviewed. Patient reports intermittent abdominal cramping, 3/10 on pain scale. States infusions help pain. Patient denies s/s of infection, TB expires 10/15/2021. PIV started, positive for blood return. Pre medications given and infusion titrated per order set. Treatment completed and tolerated, PIV removed. Copy of schedule provided to patient, discharge ambulatory. Heaven Heard RN. documented in this encounter Plan of Treatment Not on file documented as of this encounter Visit Diagnoses Diagnosis Crohn's disease of large intestine without complication (CMS/HCC) (HCC)- Primary documented in this encounter Administered Medications Inactive Administered Medications - up to 3 most recent administrations Medication Order MAR Action Action Date Dose Rate Site acetaminophen (TYLENOL) tablet 650 mg 650 mg, oral, Once, On Sun12/10/20 at 0915, For 1 dose, 30 min prior to treatmentIndications:Crohn's disease of large intestine without complication (CMS/HCC) ([facility]) Given 12/10/2020 8:42 AM CDT 650 mg diphenhydrAMINE (BENADRYL) tab/cap 25 mg 25 mg, oral, Once, On Sun12/10/20 at 0915, For 1 dose, 30 min prior to treatmentIndications:Crohn's disease of large intestine without complication (CMS/HCC) ([facility]) Given 12/10/2020 8:42 AM CDT 25 mg inFLIXimab-axxq (AVSOLA) 800 mg in sodium chloride 0.9% 250 mL IVPB 800 mg, intravenous, Administer over 2 Hours, Once, On Sun12/10/20 at 0915, For 1 dose, Infuse with [...] completed. Use 1.2 micron filter or less, low-sorbing.Indications:Crohn 's disease of large intestine without complication (CMS/HCC) ([facility]) New Bag 12/10/2020 9:03 AM CDT 800 mg sodium chloride 0.9% infusion 50 mL/hr, intravenous, Continuous, Starting on Sun12/10/20 at 0915Indications:Crohn's disease of large intestine without complication (CMS/HCC) ([facility]) New Bag 12/10/2020 9:03 AM CDT 50 mL/hr 50 mL/hr documented in this encounter Care Teams Pmp Certified Project Manager Relationship Specialty Start Date End Date Tae Mcfarland MD [address] [place] [address] PCP - General 06/18/20 documented as of this encounter
--- OUTSIDE RECORDS SUMMARY | 2024-06-10 07:04 | XMS_ITS | Encounter Summary ---
Author Organization [facility] Healthcare Address [address] [place] [address] Care Team Providers Care Administrative Appeals Tribunal Member Name Role Phone Tae Mcfarland MD Primary Care Provide r Reason for Visit * Reason Comments OP Infusion Remicade * Episode Based Medications (Routine) - Closed Specialty Diagnoses / Procedures Referred By Contac t Referred To Contact Diagnoses Crohn's disease of large intestine without complication (CMS/HCC) (HCC) Procedures LA INFLIXIMAB NOT BIOSIMIL 10MG Myles Mahajan, DO [address] [place] [address] Phone: tel: fax: [facility] [address] [place] [phone] Phone: tel: fax: Referral ID Status Reason Start Date Expiration Date Visits Re quested Visits Authorized [id number] Closed 01/16/2021 07/29/2021 1 1 Encounter Details Date Type Department Care Team (Late st Contact Info) Description 10/28/2021 1:15 PM CDT Infusion [facility] [address] [address] Crohn's disease of large intestine [...] on file 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:53 AM ART 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 SUPERVISOR Gender Identity Not on file Sexual Orientation Not on file documented as of this encounter Last Filed Vital Signs Vital Sign Reading Time Taken Comments Blood Pressure 125/79 10/28/2021 1:37 PM CDT Pulse 70 10/28/2021 1:37 PM CDT Temperature 36.5 ??C (97.7 ??F) 10/28/2021 1:37 PM CD T Respiratory Rate 16 10/28/2021 1:37 PM CDT Oxygen Saturation 96% 10/28/2021 1:37 PM CDT Inhaled Oxygen Concentration - - Weight 71.7 kg (158 lb 1.6 oz) 10/28/2021 1:37 P M CDT Height - - Body Mass Index 28.92 05/27/2021 7:34 PM ART OBJECTS SUPERVISOR documented in this encounter Progress Notes * Nelly Watt RPh - 10/28/2021 1:15 PM CDT Pharmacy Note - Biotherapy Dose Rounding Infliximab or infliximab biosimilar has been rounded from 730 mg ( 10 mg/kg) to 700 mg per the MTS policy approved by [facility] Pharmacy and Therapeutics committee. [facility] Pharmacy and Therapeutics committee as approved the following: ?? 10% dose rounding policy for biotherapy agents to the nearest vial size Nelly Watt RPh 10/28/21 1:43 PM documented in this encounter Nursing Notes * Cathie Arellano RN - 10/28/2021 1:15 PM CDT Patient arrives for Remicade infusion today. VSS, assessment as charted. Pt denies any recent fevers/infections. TB expires 12/30/21. Pt admits to c/o migraine headache today. She took Excedrin Migraine medicine prior to arriving. Will hold tylenol pre med as Excedrin contains Acetaminophen. PIV started, + blood return & flushes easily. Benadryl given. Pt tolerated infusion well and titrated per orders. PIV removed and pressure dressing applied. Schedule confirmed. Patient dischargedin stable condition per ambulatory. documented in this encounter Plan of Treatment Not on file documented as of this encounter Visit Diagnoses Diagnosis Crohn's disease of large intestine without complication (CMS/HCC) ([facility])- Primary documented in this encounter Administered Medications Inactive Administered Medications - up to 3 most recent administrations Medication Order MAR Action Action Date Dose Rate Site diphenhydrAMINE (BENADRYL) tab/cap 25 mg 25 mg, oral, Once, On Sun10/28/21 at 1415, For 1 dose, Give 30 minutes prior to infusion for infusion reaction prophylaxis.Indications:Crohn's disease of large intestine without complication (CMS/HCC) ([facility]) Given 10/28/2021 1:41 PM CDT 25 mg inFLIXimab (REMICADE) 700 mg in sodium chloride 0.9% 250 mL IVPB 700 mg, intravenous, Once, On Sun10/28/21 at 1445, For 1 dose, MAINTENANCE DOSE: Begin 4 [...] large intestine without complication (CMS/HCC) ([facility]) New Bag 10/28/2021 2:11 PM CDT 700 mg documented in this encounter Orders Medications Ordered That Kaushal ht Not Have Been Administered Count Last Ordered Date First Ordered Date acetaminophen (TYLENOL) tablet 650 mg 1 sodium chloride 0.9% infusion 1 10/28/2021 documented in this encounter Care Teams Administrative Appeals Tribunal Member Relationship Specialty Start Date End Date Tae Mcfarland MD [address] [place] [address] PCP - General 06/18/20 documented as of this encounter
--- OUTSIDE RECORDS SUMMARY | 2024-06-10 07:04 | XMS_ITS | Encounter Summary ---
Author Organization [facility] Healthcare Address [address] [place] [address] Care Team Providers Care Clinical Specialist Vascular Name Role Phone Tae Mcfarland MD Primary Care Provide r Reason for Visit * Reason Comments OP Infusion * Episode Based Medications (Routine) - Closed Specialty Diagnoses / Procedures Referred By Contac t Referred To Contact Diagnoses Crohn's disease of large intestine without complication (CMS/HCC) (HCC) Procedures [place] INJ. AVSOLA, 10 MG Myles Mahajan, DO [address] [place] [address] Phone: tel: fax: [facility] [address] [place] [phone] Phone: tel: fax: Referral ID Status Reason Start Date Expiration Date Visits Re quested Visits Authorized [id number] Closed 08/13/2020 02/13/2021 1 1 Encounter Details Date Type Department Care Team (Late st Contact Info) Description 10/15/2020 8:30 AM CDT Infusion 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 TB test obtained prior to infusion. PIV started with GBR noted. Premedsgiven and infusion tolerated per titration rate over 2hours. No HSR noted. PIV dc'd prior to discharge. Aware of appts. Ambulatory at discharge. documented in this encounter Plan of Treatment Not on file documented as of this encounter Results * TB test, quantiferon gold (10/15/2020 8:26 AM CDT) [facility] Quantiferon TB Gold Negative Negative [facility] Comment: No interferon-gamma response to M. tuberculosis [...] Interferon-gamma level <0.35 IU/mL. TB-Nil 0.00 IUnits/mL [facility] TB2-Nil 0.00 IUnits/mL [facility] Mitogen-Nil 5.32 IUnits/mL [facility] NIL 0.01 IUnits/mL [facility] Comment: Test Performed by: [facility] [address] [place] [address] Senior Technical Trainer: Albert Tirado M.D. Ph.D.; CLIA# [id number] Blood specimen (specimen) 10/15/2020 8:26 AM CDT 10/15/2020 9:18 AM CDT us Myles Mahajan DO LAB BLOOD ORDERABLES Final Res ult [facility] [address] Department [place] [address] documented in this encounter Visit Diagnoses Diagnosis Crohn's disease of large intestine without complication (CMS/HCC) (HCC)- Primary documented in this encounter Administered Medications Inactive Administered Medications - up to 3 most recent administrations Medication Order MAR Action Action Date Dose Rate Site acetaminophen (TYLENOL) tablet 650 mg 650 mg, oral, Once, On Sun10/15/20 at 0915, For 1 dose, 30 min prior to treatmentIndications:Crohn's disease of large intestine without complication (CMS/HCC) (HCC) Given 10/15/2020 8:47 AM CDT 650 mg diphenhydrAMINE (BENADRYL) tab/cap 25 mg 25 mg, oral, Once, On Sun10/15/20 at 0915, For 1 dose, 30 min prior to treatmentIndications:Crohn's disease of large intestine without complication (CMS/HCC) (HCC) Given 10/15/2020 8:47 AM CDT 25 mg inFLIXimab-axxq (AVSOLA) 790 mg in sodium chloride 0.9% 500 mL IVPB 790 mg (rounded from 792 mg = 10 mg/kg ? 79.2 kg), intravenous, Administer over 2 Hours, Once, On Sun10/15/20 at 0915, For 1 dose, Infuse with [...] intestine without complication (CMS/HCC) (HCC) New Bag 10/15/2020 8:54 AM CDT 790 mg documented in this encounter Care Teams Clinical Specialist Vascular Relationship Specialty Start Date End Date Tae Mcfarland MD [address] [place] [address] PCP - General 06/18/20 documented as of this encounter
--- OUTSIDE RECORDS SUMMARY | 2024-06-10 07:04 | XMS_ITS | Encounter Summary ---
Author Organization [facility] Healthcare Address [address] [place] [address] Care Team Providers Care Nail Specialist Name Role Phone Tae Mcfarland MD Primary Care Provide r Reason for Visit * Reason Comments OP Infusion * Episode Based Medications (Routine) - Closed Specialty Diagnoses / Procedures Referred By Contac t Referred To Contact Diagnoses Crohn's disease of large intestine without complication (CMS/HCC) (HCC) Procedures [place] INJ. AVSOLA, 10 MG Myles Mahajan, DO [address] [place] [address] Phone: tel: fax: [facility] [address] [place] [phone] Phone: tel: fax: Referral ID Status Reason Start Date Expiration Date Visits Re quested Visits Authorized [id number] Closed 08/13/2020 02/13/2021 1 1 Encounter Details Date Type Department Care Team (Late st Contact Info) Description 11/12/2020 8:30 AM CDT Infusion [facility] [address] [address] Crohn's disease of large intestine without complication (CMS/HCC) (Primary Dx) Social History Tobacco Use Types Packs/Day Years Used Date Smoking Tobacco: Former Smokeless Tobacco: Never Alcohol Use Standard Drinks/Week Comments Yes 1 (1 standard drink = 0.6 oz pur e alcohol) Comments Unknown Sex and Gender Information Value Date Recorded Sex Assigned at Not on file 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 Gender Identity Not on file Sexual Orientation Not on file documented as of this encounter Last Filed Vital Signs Vital Sign Reading Time Taken Comments Blood Pressure 127/76 11/12/2020 8:35 AM CDT Pulse 61 11/12/2020 8:35 AM CDT Temperature 36.8 ??C (98.2 ??F) 11/12/2020 8:35 AM CD T Respiratory Rate 16 11/12/2020 8:35 AM CDT Oxygen Saturation - - Inhaled Oxygen Concentration - - Weight 76.2 kg (168 lb 1.6 oz) 11/12/2020 8:19 A M CDT Height - - Body Mass Index 29.78 06/18/2020 8:13 AM ARMORING MACHINE OPERATOR documented in this encounter Progress Notes * Marian Vera RPh - 11/12/2020 8:30 AM CDT Pharmacy Note - Biotherapy Dose Rounding Infliximab has been rounded from 760 mg ( 10 mg/kg based on ABW) to 700 mg per the MTS policy approved by [facility] Pharmacy and Therapeutics committee. [facility] Pharmacy and Therapeutics committee as approved the following: ?? 10% dose rounding policy for biotherapy agents to the nearest vial size Marian Vera RPh 11/12/20 8:24 AM documented in this encounter Nursing Notes * Alyssa Vargas RN - 11/12/2020 8:30 AM CDT Pt here for remicade infusion, denies any fever or sxs infection. Does have some abd discomfort today, hoping infusion will improve this, otherwise no issues. Positive blood return from IV, toleratedinfusion, confirmed next 2 appts, d/c ambulatory. documented in this encounter Plan of [...] 650 mg 650 mg, oral, Once, On Sun11/12/20 at 0900, For 1 dose, 30 min prior to treatmentIndications:Crohn's disease of large intestine without complication (CMS/HCC) ([facility]) Given 11/12/2020 8:27 AM CDT 650 mg diphenhydrAMINE (BENADRYL) tab/cap 25 mg 25 mg, oral, Once, On Sun11/12/20 at 0900, For 1 dose, 30 min prior to treatmentIndications:Crohn's disease of large intestine without complication (CMS/HCC) ([facility]) Given 11/12/2020 8:27 AM CDT 25 mg inFLIXimab-axxq (AVSOLA) 700 mg in sodium chloride 0.9% 250 mL IVPB 700 mg, intravenous, Administer over 2 Hours, Once, On Sun11/12/20 at 0900, For 1 dose, Infuse with [...] large intestine without complication (CMS/HCC) ([facility]) New Bag 11/12/2020 8:48 AM CDT 700 mg documented in this encounter Orders Nursing Count Last Ordered Date First Orde red Date MAINTAIN VITAL SIGNS 1 11/12/2020 NURSING COMMUNICATION 1 11/12/2020 documented in this encounter Care Teams Nail Specialist Relationship Specialty Start Date End Date Tae Mcfarland MD [address] [facility] [place] [address] PCP - General 06/18/20 documented as of this encounter
--- OUTSIDE RECORDS SUMMARY | 2024-06-10 07:04 | XMS_ITS | Encounter Summary ---
Author Organization [facility] Healthcare Address [address] [place] [address] Care Team Providers Care Window Air Conditioner Installer Name Role Phone Tae Mcfarland MD Primary Care Provide r Reason for Visit * Reason Comments OP Infusion * Episode Based Medications (Routine) - Closed Specialty Diagnoses / Procedures Referred By Contac t Referred To Contact Diagnoses Crohn's disease of large intestine without complication (CMS/HCC) (HCC) Procedures [place] INFLIXIMAB NOT BIOSIMIL 10MG Myles Mahajan, DO [address] [place] [address] Phone: tel: fax: [facility] [address] [place] [phone] Phone: tel: fax: Referral ID Status Reason Start Date Expiration Date Visits Re quested Visits Authorized [id number] Closed 01/16/2021 07/29/2021 1 1 Encounter Details Date Type Department Care Team (Late st Contact Info) Description 12/23/2021 8:30 AM CDT Infusion [facility] [address] [address] Crohn's disease of large intestine [...] on file 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:53 AM NOZZLEMAN Gender Identity Not on file Sexual Orientation Not on file documented as of this encounter Last Filed Vital Signs Vital Sign Reading Time Taken Comments Blood Pressure 149/77 12/23/2021 8:25 AM CDT Pulse 76 12/23/2021 8:25 AM CDT Temperature 36.4 ??C (97.6 ??F) 12/23/2021 8:25 AM CD T Respiratory Rate 16 12/23/2021 8:25 AM CDT Oxygen Saturation - - Inhaled Oxygen Concentration - - Weight 74.4 kg (164 lb 1.6 oz) 12/23/2021 8:25 A M CDT Height - - Body Mass Index 30.01 05/27/2021 7:34 PM NOZZLEMAN documented in this encounter Progress Notes * Christine Denton RP - 12/23/2021 8:30 AM CDT Pharmacy Note - Biotherapy Dose Rounding Infliximab or infliximab biosimilar has been rounded from 740 mg ( 10 mg/kg) to 700 mg per the MTS policy approved by [facility] Pharmacy and Therapeutics committee. [facility] Pharmacy and Therapeutics committee as approved the following: ?? 10% dose rounding policy for biotherapy agents to the nearest vial size Christine Denton RPh 12/23/21 8:33 AM documented in this encounter Nursing Notes * Marry Carvajal RN - 12/23/2021 8:30 AM CDT Pt here for remicade. TB drawn today. VSS. States she broken her R foot and is wearing a boot for the foreseeable future. Denies recent fevers, infections, or other issues. IV placed, +blood return. Premeds given. Tolerated infusion. IV discontinued. Schedule confirmed. documented in this encounter Plan of Treatment Not on file documented as of this encounter Results * TB test, quantiferon gold (12/23/2021 8:08 AM CDT) [facility] Quantiferon TB Gold Negative Negative [facility] [...] Diagnosis of Tuberculosis in Adults and Children [Rogelio MORELOS et. al. Clin. Infect. Dis. 2017;64(2):111-115]. The reference range for the 'TB1 Ag minus Nil Result' and 'TB2 Ag minus Nil Result' is an Interferon-gamma level <0.35 IU/mL. TB-Nil 0.00 IUnits/mL [facility] TB2-Nil 0.00 IUnits/mL [facility] Mitogen-Nil 10.00 IUnits/mL [facility] NIL 0.00 IUnits/mL [facility] Comment: Test Performed by: [facility] [address] [place] [address] Trimmer And Reinforcer: Albert Tirado M.D. Ph.D.; CLIA# [id number] Blood 12/23/2021 8:08 AM CDT 12/23/2021 8:25 AM CDT us Myles Mahajan DO LAB BLOOD ORDERABLES Final Res ult [facility] [address] [place] [address] documented in this encounter Visit Diagnoses Diagnosis Crohn's disease of large intestine without complication (CMS/HCC) (HCC)- Primary documented in this encounter Administered Medications Inactive Administered Medications - up to 3 most recent administrations Medication Order MAR Action Action Date Dose Rate Site acetaminophen (TYLENOL) tablet 650 mg 650 mg, oral, Once, On Sun12/23/21 at 0900, For 1 dose, Give 30 minutes prior to infusion for infusion reaction prophylaxis.Indications:Crohn's disease of large intestine without complication (CMS/HCC) (HCC) Given 12/23/2021 8:34 AM CDT 650 mg diphenhydrAMINE (BENADRYL) tab/cap 25 mg 25 mg, oral, Once, On Sun12/23/21 at 0900, For 1 dose, Give 30 minutes prior to infusion for infusion reaction prophylaxis.Indications:Crohn's disease of large intestine without complication (CMS/HCC) (HCC) Given 12/23/2021 8:34 AM CDT 25 mg inFLIXimab (REMICADE) 700 mg in sodium chloride 0.9% 250 mL IVPB 700 mg, intravenous, Once, On Sun12/23/21 at 0930, For 1 dose, MAINTENANCE DOSE: [...] disease of large intestine without complication (CMS/HCC) ([facility]) New Bag 12/23/2021 8:59 AM CDT 700 mg documented in this encounter Care Teams Window Air Conditioner Installer Relationship Specialty Start Date End Date Tae Mcfarland MD [address] [place] [address] PCP - General 06/18/20 documented as of this encounter
--- OUTSIDE RECORDS SUMMARY | 2024-06-10 07:04 | XMS_ITS | Encounter Summary ---
Author Organization [facility] Healthcare Address [address] [place] [address] Care Team Providers Care Student Ambassador Name Role Phone Tae Mcfarland MD Primary Care Provide r Reason for Visit * Reason Comments OP Infusion * Episode Based Medications (Routine) - Closed Specialty Diagnoses / Procedures Referred By Contac t Referred To Contact Diagnoses Crohn's disease of large intestine without complication (CMS/HCC) (HCC) Myles Mahajan, DO [address] [place] [address] Phone: tel: fax: [facility] [address] [place] [phone] Phone: tel: fax: Referral ID Status Reason Start Date Expiration Date Visits Re quested Visits Authorized [id number] Closed 03/23/2022 04/22/2023 99 99 Encounter Details Date Type Department Care Team (Late st Contact Info) Description 05/26/2022 8:30 AM POLICYHOLDER INFORMATION CLERK Infusion [facility] [address] [place] [phone] Crohn's disease of large intestine without complication (CMS/HCC) (HCC) (Primary Dx) Social History Tobacco Use Types Packs/Day Years Used Date Smoking Tobacco: Former Smokeless Tobacco: Never Alcohol Use Standard Drinks/Week Comments Yes 1 (1 standard drink = 0.6 oz pur e alcohol) Comments Unknown Sex and Gender Information Value Date Recorded Sex Assigned at Not on file 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:53 AM POLICYHOLDER INFORMATION CLERK Gender Identity Not on file Sexual Orientation Not on file documented as of this encounter Last Filed Vital Signs Vital Sign Reading Time Taken Comments Blood Pressure 98/73 05/26/2022 8:31 AM POLICYHOLDER INFORMATION CLERK Pulse 81 05/26/2022 8:31 AM POLICYHOLDER INFORMATION CLERK Temperature 36.4 ??C (97.5 ??F) 05/26/2022 8:31 AM CS T Respiratory Rate 20 05/26/2022 8:31 AM POLICYHOLDER INFORMATION CLERK Oxygen Saturation 100% 05/26/2022 8:31 AM POLICYHOLDER INFORMATION CLERK Inhaled Oxygen Concentration - - Weight 65.7 kg (144 lb 14.4 oz) 05/26/2022 8:31 AM POLICYHOLDER INFORMATION CLERK Height - - Body Mass Index 26.5 05/27/2021 7:34 PM POLICYHOLDER INFORMATION CLERK documented in this encounter Progress Notes * Christine Denton [facility] - 05/26/2022 8:30 AM CST Pharmacy Note - Chemotherapy Dose Rounding Irinotecan has been rounded from 660 mg ( 10 mg/kg) to 700 mg per the MTS policy approved by [facility] Pharmacy and Therapeutics committee. [facility] Pharmacy and Therapeutics committee as approved the following: ?? 5% dose rounding policy for biotherapy agents to the nearest vial size Christine Denton RPh 05/26/22 8:49 AM Electronically signed by Christine Denton [facility] at 05/26/2022 8:50 AM POLICYHOLDER INFORMATION CLERK documented in this encounter Nursing Notes * Stacie Wu RN - 05/26/2022 8:30 AM CST Feeling well deny's any recent fevers/infection and no antibiotics taken. IV placed to right arm, pre meds given with 30 min wait time. Tray titration well Q 15min. RTC 06/23 CYHOLDER INFORMATION CLERK documented in this encounter Plan of Treatment Not on file documented as of this encounter Visit Diagnoses Diagnosis Crohn's disease of large intestine without complication (CMS/HCC) (HCC)- Primary documented in this encounter Administered Medications Inactive Administered Medications - up to 3 most recent administrations Medication Order MAR Action Action Date Dose Rate Site acetaminophen (TYLENOL) tablet 650 mg 650 mg, oral, Once, On Sun05/26/22 at 0915, For 1 dose, Give 30 minutes prior to infusion for infusion reaction prophylaxis.Indications:Crohn's disease of large intestine without complication (CMS/HCC) ([facility]) Given 05/26/2022 8:44 AM POLICYHOLDER INFORMATION CLERK 650 mg Carrier Fluids for Secondary Infusion - 0.9% Sodium Chloride 30 mL, intravenous, As needed, For priming tubing and/or flushing, Starting on Sun05/26/22 at 0833, 0-250ml/hr to flush line after IV infusions when no maintenance IV ordered. Infuse 30mL at the same rate as the secondary infusion. Run as primary IV, not intended for KVOIndications:Crohn's disease of large intestine without complication (CMS/HCC) ([facility]) Given 05/26/2022 9:13 AM POLICYHOLDER INFORMATION CLERK 30 mL diphenhydrAMINE (BENADRYL) tab/cap 25 mg 25 mg, oral, Once, On Sun05/26/22 at 0915, For 1 dose, Give 30 minutes prior to infusion for infusion reaction prophylaxis.Indications:Crohn's disease of large intestine without complication (CMS/HCC) ([facility]) Given 05/26/2022 8:44 AM POLICYHOLDER INFORMATION CLERK 25 mg inFLIXimab (REMICADE) 700 mg in sodium chloride 0.9% 250 mL IVPB 700 mg, intravenous, Once, On Sun05/26/22 at 0945, For 1 dose, MAINTENANCE DOSE: [...] intestine without complication (CMS/HCC) (HCC) New Bag 05/26/2022 9:14 AM POLICYHOLDER INFORMATION CLERK 700 mg documented in this encounter Orders Nursing Count Last Ordered Date First Orde red Date HEIGHT AND WEIGHT 1 05/26/2022 NURSING COMMUNICATION 1 05/26/2022 ONCBCN PROVIDER COMMUNICATION 1 1 2 VITAL SIGNS INTRA-INFUSION 1 05/26/2022 documented in this encounter Care Teams Student Ambassador Relationship Specialty Start Date End Date Tae Mcfarland MD [address] [place] [address] PCP - General 06/18/20 documented as of this encounter
--- OUTSIDE RECORDS SUMMARY | 2024-06-10 07:04 | XMS_ITS | Encounter Summary ---
Author Organization [facility] Healthcare Address [address] [place] [address] Care Team Providers Care Sash Sticker Name Role Phone Tae Mcfarland MD Primary Care Provide r Encounter Details Date Type Department Care Team (Late st Contact Info) Description 02/14/2022 Orders Only [facility] [address] [place] [address] Myles Mahajan, DO [address] [place] [address] Social History Tobacco Use Types Packs/Day Years Used Date Smoking Tobacco: Former Smokeless Tobacco: Never Alcohol Use Standard Drinks/Week Comments Yes 1 (1 standard drink = 0.6 oz pur e alcohol) Comments Unknown Sex and Gender Information Value Date Recorded Sex Assigned at Not on file 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
--- OUTSIDE RECORDS SUMMARY | 2024-06-10 07:04 | XMS_ITS | Encounter Summary ---
Author Organization [facility] Healthcare Address [address] [place] [address] Care Team Providers Care Automotive Design Layout Drafter Name Role Phone Tae Mcfarland MD Primary Care Provide r Reason for Visit * Reason Comments OP Infusion * Episode Based Medications (Routine) - Closed Specialty Diagnoses / Procedures Referred By Contac t Referred To Contact Diagnoses Crohn's disease of large intestine without complication (CMS/HCC) (HCC) Myles Mahajan, DO [address] [place] [address] Phone: tel: fax: [facility] [address] [place] [phone] Phone: tel: fax: Referral ID Status Reason Start Date Expiration Date Visits Re quested Visits Authorized [id number] Closed 03/23/2022 04/22/2023 99 99 Encounter Details Date Type Department Care Team (Late st Contact Info) Description 06/23/2022 8:30 AM NEEDLE GRADER Infusion [facility] [address] [place] [phone] Crohn's disease of large intestine without complication (CMS/HCC) (HCC) (Primary Dx) Social History Tobacco Use Types Packs/Day Years Used Date Smoking Tobacco: Former Smokeless Tobacco: Never Alcohol Use Standard Drinks/Week Comments Yes 1 (1 standard drink = 0.6 oz pur e alcohol) Comments Unknown Sex and Gender Information Value Date Recorded Sex Assigned at Not on file 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:53 AM NEEDLE GRADER Gender Identity Not on file Sexual Orientation Not on file documented as of this encounter Last Filed Vital Signs Vital Sign Reading Time Taken Comments Blood Pressure 112/73 06/23/2022 8:33 AM NEEDLE GRADER Pulse 67 06/23/2022 8:33 AM NEEDLE GRADER Temperature 36.1 ??C (96.9 ??F) 06/23/2022 8:33 AM CS T Respiratory Rate 16 06/23/2022 8:33 AM NEEDLE GRADER Oxygen Saturation 97% 06/23/2022 8:33 AM NEEDLE GRADER Inhaled Oxygen Concentration - - Weight 66.9 kg (147 lb 6.4 oz) 06/23/2022 8:33 A M NEEDLE GRADER Height - - Body Mass Index 26.96 05/27/2021 7:34 PM NEEDLE GRADER documented in this encounter Progress Notes * Marian Vera RP - 06/23/2022 8:30 AM CST Pharmacy Note - Biotherapy Dose Rounding Leucovorin has been rounded from 670 mg ( 10 mg/kg) to 700 mg per the MTS policy approved by [facility] Pharmacy and Therapeutics committee. [facility] Pharmacy and Therapeutics committee as approved the following: ?? 10% dose rounding policy for biotherapy agents to the nearest vial size Marian Vera RPh 06/23/22 8:42 AM LE GRADER documented in this encounter Nursing Notes * Adri Lentz RN - 06/23/2022 8:30 AM CST Pt arrives for remicade. Denies fevers or infections. PIV started in RFA. Premeds given. Titrated per orders, pt tolerated well. PIV removed and pressure dressing applied. Next appt confirmed. D/C ambulatory. LE GRADER documented in this encounter Plan of Treatment Not on file documented as of this encounter Visit Diagnoses Diagnosis Crohn's disease of large intestine without complication (CMS/HCC) (HCC)- Primary documented in this encounter Administered Medications Inactive Administered Medications - up to 3 most recent administrations Medication Order MAR Action Action Date Dose Rate Site acetaminophen (TYLENOL) tablet 650 mg 650 mg, oral, Once, On Sun06/23/22 at 0915, For 1 dose, Give 30 minutes prior to infusion for infusion reaction prophylaxis.Indications:Crohn's disease of large intestine without complication (CMS/HCC) ([facility]) Given 06/23/2022 8:44 AM NEEDLE GRADER 650 mg Carrier Fluids for Secondary Infusion - 0.9% Sodium Chloride 30 mL, intravenous, As needed, For priming tubing and/or flushing, Starting on Sun06/23/22 at 0837, 0-250ml/hr to flush line after IV infusions when no maintenance IV ordered. Infuse 30mL at the same rate as the secondary infusion. Run as primary IV, not intended for KVOIndications:Crohn's disease of large intestine without complication (CMS/HCC) ([facility]) Given 06/23/2022 9:15 AM NEEDLE GRADER 30 mL diphenhydrAMINE (BENADRYL) tab/cap 25 mg 25 mg, oral, Once, On Sun06/23/22 at 0915, For 1 dose, Give 30 minutes prior to infusion for infusion reaction prophylaxis.Indications:Crohn's disease of large intestine without complication (CMS/HCC) ([facility]) Given 06/23/2022 8:44 AM NEEDLE GRADER 25 mg inFLIXimab (REMICADE) 700 mg in sodium chloride 0.9% 250 mL IVPB 700 mg, intravenous, Once, On Sun06/23/22 at 0945, For 1 dose, MAINTENANCE DOSE: [...] intestine without complication (CMS/HCC) (HCC) New Bag 06/23/2022 9:15 AM NEEDLE GRADER 700 mg documented in this encounter Orders Nursing Count Last Ordered Date First Orde red Date HEIGHT AND WEIGHT 1 06/23/2022 NURSING COMMUNICATION 1 06/23/2022 ONCBCN PROVIDER COMMUNICATION 1 1 3 VITAL SIGNS INTRA-INFUSION 1 06/23/2022 documented in this encounter Care Teams Automotive Design Layout Drafter Relationship Specialty Start Date End Date Tae Mcfarland MD [address] [place] [address] PCP - General 06/18/20 documented as of this encounter
--- OUTSIDE RECORDS SUMMARY | 2024-06-10 07:04 | XMS_ITS | Encounter Summary ---
Author Organization [facility] Healthcare Address [address] [place] [address] Care Team Providers Care Trailer Technician Name Role Phone Tae Mcfarland MD Primary Care Provide r Reason for Visit * Reason Comments OP Infusion * Episode Based Medications (Routine) - Closed Specialty Diagnoses / Procedures Referred By Contac t Referred To Contact Diagnoses Crohn's disease of large intestine without complication (CMS/HCC) (HCC) Procedures [place] INJ. AVSOLA, 10 MG Myles Mahajan, DO [address] [place] [address] Phone: tel: fax: [facility] [address] [place] [phone] Phone: tel: fax: Referral ID Status Reason Start Date Expiration Date Visits Re quested Visits Authorized [id number] Closed 08/13/2020 02/13/2021 1 1 Encounter Details Date Type Department Care Team (Late st Contact Info) Description 02/04/2021 8:30 AM CDT Infusion [facility] [address] [phone] Crohn's disease of large intestine [...] on file 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:53 AM SUBSTANCE ADDICTION COORDINATOR Gender Identity Not on file Sexual Orientation Not on file documented as of this encounter Last Filed Vital Signs Vital Sign Reading Time Taken Comments Blood Pressure 105/70 02/04/2021 8:38 AM CDT Pulse 73 02/04/2021 8:38 AM CDT Temperature 36.8 ??C (98.3 ??F) 02/04/2021 8:38 AM CD T Respiratory Rate 16 02/04/2021 8:38 AM CDT Oxygen Saturation 97% 02/04/2021 8:38 AM CDT Inhaled Oxygen Concentration - - Weight 74.5 kg (164 lb 4.8 oz) 02/04/2021 8:38 A M CDT Height - - Body Mass Index 29.1 06/18/2020 8:13 AM SUBSTANCE ADDICTION COORDINATOR documented in this encounter Progress Notes * Marian Vera RPh - 02/04/2021 8:30 AM CDT Pharmacy Note - Biotherapy Dose Rounding Infliximab or infliximab biosimilar has been rounded from 740 mg ( 10 mg/kg based on ABW) to 700 mgper the MTS policy approved by [facility] Pharmacy and Therapeutics committee. [facility] Pharmacy and Therapeutics committee as approved the following: ?? 10% dose rounding policy for biotherapy agents to the nearest vial size Marian Vera RPh 02/04/21 8:31 AM documented in this encounter Nursing Notes * Pamela Ocampo, LETICIA - 02/04/2021 8:30 AM CDT Pt arrives for Avsola infusion. Pt denies any recent fevers/infections. PIV started, + blood returnnoted. Premeds given. Pt tolerated treatment well. Titrated over 2 hours per order set. PIV removed, pressure dressing applied. Pt discharged in stable condition per ambulatory. Schedule confirmed. documented in this encounter Plan of Treatment Not on file documented as of this encounter Visit Diagnoses Diagnosis Crohn's disease of large intestine without complication (CMS/HCC) ([facility])- Primary documented in this encounter Administered Medications Inactive Administered Medications - up to 3 most recent administrations Medication Order MAR Action Action Date Dose Rate Site acetaminophen (TYLENOL) tablet 650 mg 650 mg, oral, Once, On Sun02/04/21 at 0900, For 1 dose, 30 min prior to treatmentIndications:Crohn's disease of large intestine without complication (CMS/HCC) ([facility]) Given 02/04/2021 8:33 AM CDT 650 mg diphenhydrAMINE (BENADRYL) tab/cap 25 mg 25 mg, oral, Once, On Sun02/04/21 at 0900, For 1 dose, 30 min prior to treatmentIndications:Crohn's disease of large intestine without complication (CMS/HCC) ([facility]) Given 02/04/2021 8:33 AM CDT 25 mg inFLIXimab-axxq (AVSOLA) 700 mg in sodium chloride 0.9% 250 mL IVPB 700 mg, intravenous, Administer over 2 Hours, Once, On Sun02/04/21 at 0900, For 1 dose, Infuse with [...] large intestine without complication (CMS/HCC) ([facility]) New Bag 02/04/2021 9:00 AM CDT 700 mg sodium chloride 0.9% infusion 50 mL/hr, intravenous, Continuous, Starting on Sun02/04/21 at 0900Indications:Crohn's disease of large intestine without complication (CMS/HCC) ([facility]) New Bag 02/04/2021 8:40 AM CDT 50 mL/hr 50 mL/hr documented in this encounter Orders Nursing Count Last Ordered Date First Orde red Date MAINTAIN VITAL SIGNS 1 02/04/2021 NURSING COMMUNICATION 1 02/04/2021 ONCBCN PROVIDER COMMUNICATION 1 1 documented in this encounter Care Teams Trailer Technician Relationship Specialty Start Date End Date Tae Mcfarland MD [address] [place] [address] PCP - General 06/18/20 documented as of this encounter
--- OUTSIDE RECORDS SUMMARY | 2024-06-10 07:04 | XMS_ITS | Encounter Summary ---
Author Organization [facility] Healthcare Address [address] [place] [address] Care Team Providers Care Freelance Patternmaker Name Role Phone Tae Mcfarland MD Primary Care Provide r Encounter Details Date Type Department Care Team (Late st Contact Info) Description 04/21/2022 Orders Only [facility] [address] [place] [address] Myles Mahajan, DO [address] [place] [address] Social History Tobacco Use Types Packs/Day Years Used Date Smoking Tobacco: Former Smokeless Tobacco: Never Alcohol Use Standard Drinks/Week Comments Yes 1 (1 standard drink = 0.6 oz pur e alcohol) Comments Unknown Sex and Gender Information Value Date Recorded Sex Assigned at Not on file 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:53 AM SLOT TAG INSERTER Gender Identity Not on file Sexual Orientation Not on file documented as of this encounter Plan of Treatment Not on file documented as of this encounter Visit Diagnoses Not on filedocumented in this encounter Care Teams Freelance Patternmaker Relationship Specialty Start Date End Date Tae Mcfarland MD [address] [place] [address] PCP - General 06/18/20 documented as of this encounter
--- OUTSIDE RECORDS SUMMARY | 2024-06-10 07:04 | XMS_ITS | Encounter Summary ---
Author Organization [facility] Healthcare Address [address] [place] [address] Care Team Providers Care Teachers Aide Name Role Phone Tae Mcfarland MD Primary Care Provide r Reason for Visit * Reason Comments OP Infusion * Episode Based Medications (Routine) - Closed Specialty Diagnoses / Procedures Referred By Contac t Referred To Contact Diagnoses Crohn's disease of large intestine without complication (CMS/HCC) (HCC) Procedures [place] INJ. AVSOLA, 10 MG Myles Mahajan, DO [address] [place] [address] Phone: tel: fax: [facility] [address] [place] [phone] Phone: tel: fax: Referral ID Status Reason Start Date Expiration Date Visits Re quested Visits Authorized [id number] Closed 08/13/2020 02/13/2021 1 1 Encounter Details Date Type Department Care Team (Late st Contact Info) Description 04/28/2021 8:00 AM ACTIVE DIRECTORY ARCHITECT Infusion [facility] [address] [place] [phone] Crohn's disease of large intestine without complication (CMS/HCC) (HCC) (Primary Dx) Social History Tobacco Use Types Packs/Day Years Used Date Smoking Tobacco: Former Smokeless Tobacco: Never Alcohol Use Standard Drinks/Week Comments Yes 1 (1 standard drink = 0.6 oz pur e alcohol) Comments Unknown Sex and Gender Information Value Date Recorded Sex Assigned at Not on file 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:53 AM ACTIVE DIRECTORY ARCHITECT Gender Identity Not on file Sexual Orientation Not on file documented as of this encounter Last Filed Vital Signs Vital Sign Reading Time Taken Comments Blood Pressure 118/76 04/28/2021 8:11 AM ACTIVE DIRECTORY ARCHITECT Pulse 74 04/28/2021 8:11 AM ACTIVE DIRECTORY ARCHITECT Temperature 36.2 ??C (97.1 ??F) 04/28/2021 8:11 AM CS T Respiratory Rate 16 04/28/2021 8:11 AM ACTIVE DIRECTORY ARCHITECT Oxygen Saturation - - Inhaled Oxygen Concentration - - Weight 73.9 kg (163 lb) 04/28/2021 7:57 AM ACTIVE DIRECTORY ARCHITECT Height - - Body Mass Index 28.87 06/18/2020 8:13 AM ACTIVE DIRECTORY ARCHITECT documented in this encounter Progress Notes * Marian Vera RPh - 04/28/2021 8:00 AM CST Pharmacy Note - Biotherapy Dose Rounding Infliximab or infliximab biosimilar has been rounded from 740 mg ( 10 mg/kg) to 700 mg per the MTS policy approved by [facility] Pharmacy and Therapeutics committee. [facility] Pharmacy and Therapeutics committee as approved the following: ?? 10% dose rounding policy for biotherapy agents to the nearest vial size Marian Vera RPh 04/28/21 8:04 AM VE DIRECTORY ARCHITECT documented in this encounter Nursing Notes * Pauline Almanzar RN - 04/28/2021 8:00 AM CST Here for remicade. Experiences some hand cramping, no other complaints. PIV started, premeds given.Remicade titrated per orders. PIV removed. Confirmed next appt. Ambulatory at d/c. VE DIRECTORY ARCHITECT documented in this encounter Plan of Treatment Not on file documented as of this encounter Visit Diagnoses Diagnosis Crohn's disease of large intestine without complication (CMS/HCC) (HCC)- Primary documented in this encounter Administered Medications Inactive Administered Medications - up to 3 most recent administrations Medication Order MAR Action Action Date Dose Rate Site acetaminophen (TYLENOL) tablet 650 mg 650 mg, oral, Once, On [place] 04/28/21 at 0845, For 1 dose, Give 30 minutes prior to infusion for infusion reaction prophylaxis.Indications:Crohn 's disease of large intestine without complication (CMS/HCC) (HCC) Given 04/28/2021 8:10 AM ACTIVE DIRECTORY ARCHITECT 650 mg diphenhydrAMINE (BENADRYL) tab/cap 25 mg 25 mg, oral, Once, On [place] 04/28/21 at 0845, For 1 dose, Give 30 minutes prior to infusion for infusion reaction prophylaxis.Indications:Crohn 's disease of large intestine without complication (CMS/HCC) (HCC) Given 04/28/2021 8:10 AM ACTIVE DIRECTORY ARCHITECT 25 mg inFLIXimab (REMICADE) 700 mg in sodium chloride 0.9% 250 mL IVPB 700 mg, intravenous, Once, On [place] 04/28/21 at 0915, For 1 dose, MAINTENANCE DOSE: [...] intestine without complication (CMS/HCC) (HCC) New Bag 04/28/2021 8:23 AM ACTIVE DIRECTORY ARCHITECT 700 mg sodium chloride 0.9% infusion 50 mL/hr, intravenous, Continuous, Starting on [place] 04/28/21 at 0845Indications:Crohn's disease of large intestine without complication (CMS/HCC) (HCC) New Bag 04/28/2021 8:09 AM ACTIVE DIRECTORY ARCHITECT 50 mL/hr 50 mL/hr documented in this encounter Orders Nursing Count Last Ordered Date First Orde red Date HEIGHT AND WEIGHT 1 04/28/2021 NURSING COMMUNICATION 1 04/28/2021 ONCBCN PROVIDER COMMUNICATION 1 1 VITAL SIGNS INTRA-INFUSION 1 04/28/2021 documented in this encounter Care Teams Teachers Aide Relationship Specialty Start Date End Date Tae Mcfarland MD [address] [place] [address] PCP - General 06/18/20 documented as of this encounter
--- OUTSIDE RECORDS SUMMARY | 2024-06-10 07:04 | XMS_ITS | Encounter Summary ---
Author Organization [facility] Healthcare Address [address] [place] [address] Care Team Providers Care Pilot Boat Captain Name Role Phone Tae Mcfarland MD Primary Care Provide r Reason for Visit * Reason Comments OP Infusion * Episode Based Medications (Routine) - Closed Specialty Diagnoses / Procedures Referred By Contac t Referred To Contact Diagnoses Crohn's disease of large intestine without complication (CMS/HCC) (HCC) Myles Mahajan, DO [address] [place] [address] Phone: tel: fax: [facility] [address] [place] [phone] Phone: tel: fax: Referral ID Status Reason Start Date Expiration Date Visits Re quested Visits Authorized [id number] Closed 03/23/2022 04/22/2023 99 99 Encounter Details Date Type Department Care Team (Late st Contact Info) Description 2022 8:00 AM MICROFILM TECHNICIAN Infusion [facility] [address] [place] [phone] Crohn's disease of large intestine without complication (CMS/HCC) (HCC) (Primary Dx) Social History Tobacco Use Types Packs/Day Years Used Date Smoking Tobacco: Former Smokeless Tobacco: Never Alcohol Use Standard Drinks/Week Comments Yes 1 (1 standard drink = 0.6 oz pur e alcohol) Comments Unknown Sex and Gender Information Value Date Recorded Sex Assigned at Not on file 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:53 AM MICROFILM TECHNICIAN Gender Identity Not on file Sexual Orientation Not on file documented as of this encounter Last Filed Vital Signs Vital Sign Reading Time Taken Comments Blood Pressure 108/67 2022 8:23 AM MICROFILM TECHNICIAN Pulse 82 2022 8:23 AM MICROFILM TECHNICIAN Temperature 36.1 ??C (96.9 ??F) 2022 8:23 AM CS T Respiratory Rate 16 2022 8:23 AM MICROFILM TECHNICIAN Oxygen Saturation - - Inhaled Oxygen Concentration - - Weight 67.6 kg (149 lb 1.6 oz) 2022 8:07 A M MICROFILM TECHNICIAN Height - - Body Mass Index 27.27 05/27/2021 7:34 PM MICROFILM TECHNICIAN documented in this encounter Progress Notes * Christine Denton RPh - 2022 8:00 AM CST Pharmacy Note - Biotherapy Dose Rounding Infliximab or infliximab biosimilar has been rounded from 680 mg ( 10 mg/kg) to 700 mg per the MTS policy approved by [facility] Pharmacy and Therapeutics committee. [facility] Pharmacy and Therapeutics committee as approved the following: ?? 10% dose rounding policy for biotherapy agents to the nearest vial size Christine Denton RPh 04/26/22 8:15 AM OFILM TECHNICIAN documented in this encounter Nursing Notes * Pauline Almanzar RN - 2022 8:00 AM CST Here for remicade. Pt reports having frequent abd cramping. PIV started. Premeds given. Infusion tolerated well, titrated per orders. PIV removed. Confirmed next appt. Ambulatory at d/c. OFILM TECHNICIAN documented in this encounter Plan of Treatment Not on file documented as of this encounter Visit Diagnoses Diagnosis Crohn's disease of large intestine without complication (CMS/HCC) (HCC)- Primary documented in this encounter Administered Medications Inactive Administered Medications - up to 3 most recent administrations Medication Order MAR Action Action Date Dose Rate Site acetaminophen (TYLENOL) tablet 650 mg 650 mg, oral, Once, On Sun04/26/22 at 0845, For 1 dose, Give 30 minutes prior to infusion for infusion reaction prophylaxis.Indications:Crohn's disease of large intestine without complication (CMS/HCC) ([facility]) Given 2022 8:23 AM MICROFILM TECHNICIAN 650 mg Carrier Fluids for Secondary Infusion - 0.9% Sodium Chloride 30 mL, intravenous, As needed, For priming tubing and/or flushing, Starting on Sun04/26/22 at 0811, 0-250ml/hr to flush line after IV infusions when no maintenance IV ordered. Infuse 30mL at the same rate as the secondary infusion. Run as primary IV, not intended for KVOIndications:Crohn's disease of large intestine without complication (CMS/HCC) ([facility]) Given 2022 8:16 AM MICROFILM TECHNICIAN 30 mL diphenhydrAMINE (BENADRYL) tab/cap 25 mg 25 mg, oral, Once, On Sun04/26/22 at 0845, For 1 dose, Give 30 minutes prior to infusion for infusion reaction prophylaxis.Indications:Crohn's disease of large intestine without complication (CMS/HCC) ([facility]) Given 2022 8:23 AM MICROFILM TECHNICIAN 25 mg inFLIXimab (REMICADE) 700 mg in sodium chloride 0.9% 250 mL IVPB 700 mg, intravenous, Once, On Sun04/26/22 at 0915, For 1 dose, MAINTENANCE DOSE: [...] intestine without complication (CMS/HCC) (HCC) New Bag 2022 8:38 AM MICROFILM TECHNICIAN 700 mg documented in this encounter Orders Nursing Count Last Ordered Date First Orde red Date HEIGHT AND WEIGHT 1 2022 NURSING COMMUNICATION 1 2022 ONCBCN PROVIDER COMMUNICATION 1 1 2 VITAL SIGNS INTRA-INFUSION 1 2022 documented in this encounter Care Teams Pilot Boat Captain Relationship Specialty Start Date End Date Tae Mcfarland MD [address] [place] [address] PCP - General 06/18/20 documented as of this encounter
--- OUTSIDE RECORDS SUMMARY | 2024-06-10 07:04 | XMS_ITS | Encounter Summary ---
Author Organization [facility] Healthcare Address [address] [place] [address] Care Team Providers Care Pipe Racker Name Role Phone Tae Mcfarland MD Primary Care Provide r Reason for Visit * Reason Comments OP Infusion * Episode Based Medications (Routine) - Closed Specialty Diagnoses / Procedures Referred By Contac t Referred To Contact Diagnoses Crohn's disease of large intestine without complication (CMS/HCC) (HCC) Procedures RI INJ. AVSOLA, 10 MG Myles Mahajan, DO [address] [place] [address] Phone: tel: fax: [facility] [address] [place] [phone] Phone: tel: fax: Referral ID Status Reason Start Date Expiration Date Visits Re quested Visits Authorized [id number] Closed 08/13/2020 02/13/2021 1 1 Encounter Details Date Type Department Care Team (Late st Contact Info) Description 09/17/2020 8:30 AM CDT Infusion [facility] [address] [phone] Crohn's disease of large intestine without complication (CMS/HCC) (Primary Dx) Social History Tobacco Use Types Packs/Day Years Used Date Smoking Tobacco: Former Smokeless Tobacco: Never Alcohol Use Standard Drinks/Week Comments Yes 1 (1 standard drink = 0.6 oz pur e alcohol) Comments Unknown Sex and Gender Information Value Date Recorded Sex Assigned at Not on file 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:53 AM INTELLECTUAL PROPERTY MANAGER Gender Identity Not on file Sexual Orientation Not on file documented as of this encounter Last Filed Vital Signs Vital Sign Reading Time Taken Comments Blood Pressure 123/76 09/17/2020 8:28 AM CDT Pulse 83 09/17/2020 8:28 AM CDT Temperature 36.7 ??C (98 ??F) 09/17/2020 8:28 AM CDT Respiratory Rate 18 09/17/2020 8:28 AM CDT Oxygen Saturation 97% 09/17/2020 8:28 AM CDT Inhaled Oxygen Concentration - - Weight 79.2 kg (174 lb 11.2 oz) 09/17/2020 8:28 AM CDT Height - - Body Mass Index 30.95 06/18/2020 8:13 AM INTELLECTUAL PROPERTY MANAGER documented in this encounter Nursing Notes * Maria Del Carmen Vera RN - 09/17/2020 8:30 AM CDT Pt arrives for Avsola infusion. Pt c/o 5/10 cramping abodminal pain. Pt denies any s/s of infection. PIV started, + blood return noted. Premeds given. Pt tolerated infusion well. Titrated over 2 hours per order set. PIV removed, pressure dressing applied. Pt discharged in stable condition per ambulatory. Next two appointments made. Deng VeraZhenVincent Pt TB test expires 10/30/20, pt aware. Lab appointment made the morning of her 10/15/20 appt to have drawn. Pt aware to call MD's office to have order put in [employer]. In basket message sent to Donny as well. documented in this encounter Plan of Treatment Not on file documented as of this encounter Visit Diagnoses Diagnosis Crohn's disease of large intestine without complication (CMS/HCC) (HCC)- Primary documented in this encounter Administered Medications Inactive Administered Medications - up to 3 most recent administrations Medication Order MAR Action Action Date Dose Rate Site acetaminophen (TYLENOL) tablet 650 mg 650 mg, oral, Once, On Sun09/17/20 at 0900, For 1 dose, 30 min prior to treatmentIndications:Crohn's disease of large intestine without complication (CMS/HCC) (HCC) Given 09/17/2020 8:33 AM CDT 650 mg diphenhydrAMINE (BENADRYL) tab/cap 25 mg 25 mg, oral, Once, On Sun09/17/20 at 0900, For 1 dose, 30 min prior to treatmentIndications:Crohn's disease of large intestine without complication (CMS/HCC) ([facility]) Given 09/17/2020 8:33 AM CDT 25 mg inFLIXimab-axxq (AVSOLA) 790 mg in sodium chloride 0.9% 500 mL IVPB 790 mg (rounded from 792 mg = 10 mg/kg ? 79.2 kg), intravenous, Administer over 2 Hours, Once, On Sun09/17/20 at 0900, For 1 dose, Infuse with [...] ([facility]) New Bag 09/17/2020 9:00 AM CDT 790 mg documented in this encounter Orders Nursing Count Last Ordered Date First Orde red Date MAINTAIN VITAL SIGNS 1 09/17/2020 NURSING COMMUNICATION 1 09/17/2020 ONCBCN PROVIDER COMMUNICATION 1 1 documented in this encounter Care Teams Pipe Racker Relationship Specialty Start Date End Date Tae Mcfarland MD [address] [place] [address] PCP - General 06/18/20 documented as of this encounter
--- OUTSIDE RECORDS SUMMARY | 2024-06-10 07:04 | XMS_ITS | Encounter Summary ---
Author Organization [facility] Healthcare Address [address] [place] [address] Care Team Providers Care Publications Manager Name Role Phone Tae Mcfarland MD Primary Care Provide r Reason for Visit * Episode Based Medications (Routine) - Closed Specialty Diagnoses / Procedures Referred By Contac t Referred To Contact Diagnoses Crohn's disease of large intestine without complication (CMS/HCC) (HCC) Procedures [place] INFLIXIMAB NOT BIOSIMIL 10MG Myles Mahajan, DO [address] [place] [address] Phone: tel: fax: [facility] [address] [place] [phone] Phone: tel: fax: Referral ID Status Reason Start Date Expiration Date Visits Re quested Visits Authorized [id number] Closed 01/16/2021 07/29/2021 1 1 Encounter Details Date Type Department Care Team (Late st Contact Info) Description 08/05/2021 8:30 AM COMBINATION 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 Infusion [facility] [address] [place] [phone] Crohn's disease of large intestine without complication (CMS/HCC) (HCC) (Primary Dx) Social History Tobacco Use Types Packs/Day Years Used Date Smoking Tobacco: Former Smokeless Tobacco: Never Alcohol Use Standard Drinks/Week Comments Yes 1 (1 standard drink = 0.6 oz pur e alcohol) Comments Unknown Sex and Gender Information Value Date Recorded Sex Assigned at Not on file 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:53 AM COMBINATION 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 Gender Identity Not on file Sexual Orientation Not on file documented as of this encounter Last Filed Vital Signs Vital Sign Reading Time Taken Comments Blood Pressure 130/76 08/05/2021 8:43 AM COMBINATION 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 Pulse 71 08/05/2021 8:43 AM COMBINATION 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 Temperature 36.4 ??C (97.5 ??F) 08/05/2021 8:43 AM CS T Respiratory Rate 18 08/05/2021 8:43 AM COMBINATION 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 Oxygen Saturation 98% 08/05/2021 8:43 AM COMBINATION 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 Inhaled Oxygen Concentration - - Weight 73.6 kg (162 lb 4.8 oz) 08/05/2021 8:43 A M COMBINATION 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 Height - - Body Mass Index 29.69 05/27/2021 7:34 PM COMBINATION 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 documented in this encounter Progress Notes * Marian Vera RPh - 08/05/2021 8:30 AM CST Pharmacy Note - Biotherapy [...] the nearest vial size Marian Vera RPh 08/05/21 8:21 AM INATION 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 documented in this encounter Nursing Notes * Estee Marion RN - 08/05/2021 8:30 AM CST Arrival for Remicade. Pt feeling okay. 5/10 abdominal pain/cramping. PIV started, + blood return noted. Premeds given. Titrated per protocol. Tolerated well. PIV removed. Schedule confirmed. Discharged ambulatory. INATION 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 documented in this encounter Plan of Treatment Not on file documented as of this encounter Visit Diagnoses Diagnosis Crohn's disease of large intestine without complication (CMS/HCC) (HCC)- Primary documented in this encounter Administered Medications Inactive Administered Medications - up to 3 most recent administrations Medication Order MAR Action Action Date Dose Rate Site acetaminophen (TYLENOL) tablet 650 mg 650 mg, oral, Once, On Sun08/05/21 at 0900, For 1 dose, Give 30 minutes prior to infusion for infusion reaction prophylaxis.Indications:Crohn 's disease of large intestine without complication (CMS/HCC) (HCC) Given 08/05/2021 8:30 AM COMBINATION 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 650 mg diphenhydrAMINE (BENADRYL) tab/cap 25 mg 25 mg, oral, Once, On Sun08/05/21 at 0900, For 1 dose, Give 30 minutes prior to infusion for infusion reaction prophylaxis.Indications:Crohn 's disease of large intestine without complication (CMS/HCC) (HCC) Given 08/05/2021 8:30 AM COMBINATION 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 25 mg inFLIXimab (REMICADE) 700 mg in sodium chloride 0.9% 250 mL IVPB 700 mg, intravenous, Once, On Sun08/05/21 at 0930, For 1 dose, MAINTENANCE DOSE: [...] intestine without complication (CMS/HCC) (HCC) New Bag 08/05/2021 8:47 AM COMBINATION 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 700 mg sodium chloride 0.9% infusion 50 mL/hr, intravenous, Continuous, Starting on Sun08/05/21 at 0900Indications:Crohn's disease of large intestine without complication (CMS/HCC) (HCC) New Bag 08/05/2021 8:41 AM COMBINATION 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 50 mL/hr 50 mL/hr documented in this encounter Orders Nursing Count Last Ordered Date First Orde red Date HEIGHT AND WEIGHT 1 08/05/2021 NURSING COMMUNICATION 1 08/05/2021 ONCBCN PROVIDER COMMUNICATION 1 1 VITAL SIGNS INTRA-INFUSION 1 08/05/2021 documented in this encounter Care Teams Publications Manager Relationship Specialty Start Date End Date Tae Mcfarland MD [address] [place] [address] PCP - General 06/18/20 documented as of this encounter
--- OUTSIDE RECORDS SUMMARY | 2024-06-10 07:05 | XMS_ITS | Encounter Summary ---
Author Organization [facility] Healthcare Address [address] [place] [address] Care Team Providers Care Carpentry Specialist Name Role Phone Timo German MD Primary Care Provider [phone] Encounter Details Date Type Department Care Team (Late st Contact Info) Description 02/17/2019 Orders Only [facility] [address] [place] [phone] Nelly Watt, [facility] Social History Tobacco Use Types Packs/Day Years Used Date Smoking Tobacco: Former Smokeless Tobacco: Never Alcohol Use Standard Drinks/Week Comments Yes 1 (1 standard drink = 0.6 oz pur e alcohol) Comments Unknown Sex and Gender Information Value Date Recorded Sex Assigned at Not on file 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
--- OUTSIDE RECORDS SUMMARY | 2024-06-10 07:05 | XMS_ITS | Encounter Summary ---
Author Organization [facility] Healthcare Address [address] [place] [address] Care Team Providers Care Mission Coordinator Name Role Phone Timo German MD Primary Care Provider [phone] Reason for Visit * Reason Comments OP Infusion * Episode Based Medications (Routine) - Closed Specialty Diagnoses / Procedures Referred By Contac t Referred To Contact Diagnoses Crohn's disease of large intestine without complication (CMS/HCC) (HCC) Procedures [place] INFLIXIMAB NOT BIOSIMIL 10MG Myles Mahajan, DO [address] [place] [address] Phone: tel: fax: [facility] [address] [place] [phone] Phone: tel: fax: Referral ID Status Reason Start Date Expiration Date Visits Re quested Visits Authorized [id number] Closed 11/05/2019 05/16/2021 1 1 Encounter Details Date Type Department Care Team (Late st Contact Info) Description 01/16/2020 11:45 AM CDT Infusion [facility] [address] [place] [phone] Crohn's disease of large intestine without complication (CMS/HCC) (Primary Dx) Social History Tobacco Use Types Packs/Day Years Used Date Smoking Tobacco: Former Smokeless Tobacco: Never Alcohol Use Standard Drinks/Week Comments Yes 1 (1 standard drink = 0.6 oz pur e alcohol) Comments Unknown Sex and Gender Information Value Date Recorded Sex Assigned at Not on file 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 Gender Identity Not on file Sexual Orientation Not on file documented as of this encounter Last Filed Vital Signs Vital Sign Reading Time Taken Comments Blood Pressure 107/87 01/16/2020 11:26 AM CDT Pulse 69 01/16/2020 11:26 AM CDT Temperature 36.9 ??C (98.4 ??F) 01/16/2020 11:26 AM C DT Respiratory Rate 16 01/16/2020 11:26 AM CDT Oxygen Saturation - - Inhaled Oxygen Concentration - - Weight 70.1 kg (154 lb 9.6 oz) 01/16/2020 11:26 AM CDT Height - - Body Mass Index 29.21 12/19/2019 8:18 AM CDT documented in this encounter Nursing Notes * Pamela Ocampo, LETICIA - 01/16/2020 11:45 AM CDT Pt here for remicade infusion. VSS. States she is feeling well w/o complaints. IV placed, +blood return. Premeds given. Tolerated infusion. IV discontinued. Schedule confirmed. documented in this encounter Plan of Treatment Not on file documented as of this encounter Visit Diagnoses Diagnosis Crohn's disease of large intestine without complication (CMS/HCC) ([facility])- Primary documented in this encounter Administered Medications Inactive Administered Medications - up to 3 most recent administrations Medication Order MAR Action Action Date Dose Rate Site acetaminophen (TYLENOL) tablet 650 mg 650 mg, oral, Once, On Sun01/16/20 at 1200, For 1 dose, Please give 30 minutes prior to infusion for infusion reaction prophylaxis.Indications:Crohn's disease of large intestine without complication (CMS/HCC) (HCC) Given 01/16/2020 11:19 AM CDT 650 mg diphenhydrAMINE (BENADRYL) tab/cap 25 mg 25 mg, oral, Once, On Sun01/16/20 at 1200, For 1 dose, Please give 30 minutes prior to infusion for infusion reaction prophylaxis.Indications:Crohn's disease of large intestine without complication (CMS/HCC) (HCC) Given 01/16/2020 11:19 AM CDT 25 mg inFLIXimab (REMICADE) 700 mg in sodium chloride 0.9% 250 mL IVPB 700 mg, intravenous, Administer over 2 Hours, Once, On Sun01/16/20 at 1200, For 1 dose, Infuse with filter tubing, Maintenance Dose: Administer every 8 weeks starting on week 14., , lnititate therapy at 10mI/hour x 15 minutes then, Increase to 20ml/hour x 15 minutes then, Increase to 40ml/hour x 15 minutes then, Increase to 80ml/hour x 15 minutes then, Increase to 150ml/hour x 30 minutes then, Increase to 250ml/hour x 30 minutes until infusion is completed., FOR REACTIONS-STOP INFUSION., , For 500 ml:, Initiate therapy at 20 ml/hour x 15 minutes then, Increase to 40 ml/hour x 15 minutes then, Increase to 80 ml/hour x 15 minutes the, Increase to 160 ml/hours x 15 minutes then, Increase to 300 ml/hour x 30 minutes then, Increase to 500 ml/hour until infusion is completed. Use 1.2 micron filter or less, low-sorbing.Indications:Crohn's disease of large intestine without complication (CMS/HCC) (HCC) New Bag 01/16/2020 12:00 PM CDT 700 mg documented in this encounter Orders Nursing Count Last Ordered Date First Orde red Date HEIGHT AND WEIGHT 01/16/2020 MAINTAIN VITAL SIGNS 01/16/2020 ONCBCN PROVIDER COMMUNICATION 1 0 documented in this encounter Care Teams Mission Coordinator Relationship Specialty Start Date End Date Timo German MD [address] [place] [address] PCP - General 04/16/17 06/17/20 documented as of this encounter
--- OUTSIDE RECORDS SUMMARY | 2024-06-10 07:05 | XMS_ITS | Encounter Summary ---
Author Organization [facility] Healthcare Address [address] [place] [address] Care Team Providers Care Window And Siding Craftsman Name Role Phone Timo German MD Primary Care Provider [phone] Reason for Visit * Reason Comments OP Infusion * Episode Based Medications (Routine) - Closed Specialty Diagnoses / Procedures Referred By Contac t Referred To Contact Diagnoses Crohn's disease of large intestine without complication (CMS/HCC) (HCC) Procedures RI INFLIXIMAB NOT BIOSIMIL 10MG Myles Mahajan, DO [address] [place] [address] Phone: tel: fax: [facility] [address] [place] [phone] Phone: tel: fax: Referral ID Status Reason Start Date Expiration Date Visits Re quested Visits Authorized [id number] Closed 10/31/2018 11/01/2019 1 1 Encounter Details Date Type Department Care Team (Late st Contact Info) Description 03/21/2019 8:00 AM CDT Infusion [facility] [address] [place] [phone] Crohn's disease of large intestine without complication (CMS/HCC) (Primary Dx) Social History Tobacco Use Types Packs/Day Years Used Date Smoking Tobacco: Former Smokeless Tobacco: Never Alcohol Use Standard Drinks/Week Comments Yes 1 (1 standard drink = 0.6 oz pur e alcohol) Comments Unknown Sex and Gender Information Value Date Recorded Sex Assigned at Not on file 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 Gender Identity Not on file Sexual Orientation Not on file documented as of this encounter Last Filed Vital Signs Vital Sign Reading Time Taken Comments Blood Pressure 105/67 03/21/2019 8:00 AM CDT Pulse 74 03/21/2019 8:00 AM CDT Temperature 36.4 ??C (97.6 ??F) 03/21/2019 8:00 AM CD T Respiratory Rate 16 03/21/2019 8:00 AM CDT Oxygen Saturation - - Inhaled Oxygen Concentration - - Weight 71.8 kg (158 lb 6.4 oz) 03/21/2019 8:00 A M CDT Height - - Body Mass Index 29.93 02/25/2018 2:40 PM CDT documented in this encounter Nursing Notes * Jason Watt RN - 03/21/2019 8:00 AM CDT Pt arrives for remicade infusion. VSS, denies recent infections or flu-like symptoms. PIV started with good blood return noted. Premeds administered. Remicade started and titrated per orders, pt tolerated well, no s/s of reaction noted. PIV discontinued and pressure dressing applied. Next appt scheduled, pt ambulatory at discharge. documented in this encounter Plan [...] 650 mg 650 mg, oral, Once, On Sun03/21/19 at 0845, For 1 dose, Please give 30 minutes prior to infusion for infusion reaction prophylaxis.Indications:Crohn 's disease of large intestine without complication (CMS/HCC) (HCC) Given 03/21/2019 8:05 AM CDT 650 mg diphenhydrAMINE (BENADRYL) tab/cap 25 mg 25 mg, oral, Once, On Sun03/21/19 at 0845, For 1 dose, Please give 30 minutes prior to infusion for infusion reaction prophylaxis.Indications:Crohn 's disease of large intestine without complication (CMS/HCC) (HCC) Given 03/21/2019 8:05 AM CDT 25 mg inFLIXimab (REMICADE) 700 mg in sodium chloride 0.9% 250 mL IVPB 700 mg, intravenous, Administer over 2 Hours, Once, On Sun03/21/19 at 0845, For 1 dose, Infuse with filter tubing, [...] completed. Use 1.2 micron filter or less, low-sorbingIndications:Crohn' s disease of large intestine without complication (CMS/HCC) (HCC) New Bag 03/21/2019 8:34 AM CDT 700 mg sodium chloride 0.9% infusion 30 mL/hr, intravenous, Continuous, Starting on Sun03/21/19 at 0845Indications:Crohn's disease of large intestine without complication (CMS/HCC) (HCC) New Bag 03/21/2019 8:06 AM CDT 30 mL/hr 30 mL/hr documented in this encounter Care Teams Window And Siding Craftsman Relationship Specialty Start Date End Date Timo German MD [facility] [place] [address] PCP - General 04/16/17 06/17/20 documented as of this encounter
--- OUTSIDE RECORDS SUMMARY | 2024-06-10 07:05 | XMS_ITS | Encounter Summary ---
Author Organization [facility] Healthcare Address [address] [place] [address] Care Team Providers Care Income Tax Preparer Name Role Phone Timo German MD Primary Care Provider [phone] Reason for Visit * Reason Comments OP Infusion * Episode Based Medications (Routine) - Closed Specialty Diagnoses / Procedures Referred By Contac t Referred To Contact Diagnoses Crohn's disease of large intestine without complication (CMS/HCC) (HCC) Procedures [place] INFLIXIMAB NOT BIOSIMIL 10MG Myles Mahajan, DO [address] [place] [address] Phone: tel: fax: [facility] [address] [place] [phone] Phone: tel: fax: Referral ID Status Reason Start Date Expiration Date Visits Re quested Visits Authorized [id number] Closed 01/10/2020 07/22/2020 1 1 Encounter Details Date Type Department Care Team (Late st Contact Info) Description 02/12/2020 10:00 AM CDT Infusion [facility] [address] [place] [phone] Crohn's disease of large intestine without complication (CMS/HCC) (Primary Dx) Social History Tobacco Use Types Packs/Day Years Used Date Smoking Tobacco: Former Smokeless Tobacco: Never Alcohol Use Standard Drinks/Week Comments Yes 1 (1 standard drink = 0.6 oz pur e alcohol) Comments Unknown Sex and Gender Information Value Date Recorded Sex Assigned at Not on file 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 Reports intermittent cramping pain to abdomen rated at 4. PIV started. Premeds given. Tolerated well. PIV removed. Next appt scheduled. Ambulatory at [...] mg 650 mg, oral, Once, On Hollie 02/12/20 at 1045, For 1 dose, Please give 30 minutes prior to infusion for infusion reaction prophylaxis.Indications:Crohn's disease of large intestine without complication (CMS/HCC) (HCC) Given 02/12/2020 10:14 AM CDT 650 mg diphenhydrAMINE (BENADRYL) tab/cap 25 mg 25 mg, oral, Once, On Hollie 02/12/20 at 1045, For 1 dose, Please give 30 minutes prior to infusion for infusion reaction prophylaxis.Indications:Crohn's disease of large intestine without complication (CMS/HCC) (HCC) Given 02/12/2020 10:15 AM CDT 25 mg inFLIXimab (REMICADE) 700 mg in sodium chloride 0.9% 250 mL IVPB 700 mg, intravenous, Administer over 2 Hours, Once, On Hollie 02/12/20 at 1045, For 1 dose, Infuse with filter tubing [...] intestine without complication (CMS/HCC) (HCC) New Bag 02/12/2020 10:45 AM CDT 700 mg documented in this encounter Orders Nursing Count Last Ordered Date First Orde red Date HEIGHT AND WEIGHT 1 02/12/2020 MAINTAIN VITAL SIGNS 1 02/12/2020 ONCBCN PROVIDER COMMUNICATION 1 1 0 documented in this encounter Care Teams Income Tax Preparer Relationship Specialty Start Date End Date Timo German MD [facility] [place] [address] PCP - General 04/16/17 06/17/20 documented as of this encounter
--- OUTSIDE RECORDS SUMMARY | 2024-06-10 07:05 | XMS_ITS | Encounter Summary ---
Author Organization [facility] Healthcare Address [address] [place] [address] Care Team Providers Care Tyre Retreader Name Role Phone Timo German MD Primary Care Provider [phone] Encounter Details Date Type Department Care Team (Late st Contact Info) Description 05/22/2019 Orders Only [facility] [place] [phone] Nelly Watt, [facility] Social History Tobacco Use Types Packs/Day Years Used Date Smoking Tobacco: Former Smokeless Tobacco: Never Alcohol Use Standard Drinks/Week Comments Yes 1 (1 standard drink = 0.6 oz pur e alcohol) Comments Unknown Sex and Gender Information Value Date Recorded Sex Assigned at Not on file 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
--- OUTSIDE RECORDS SUMMARY | 2024-06-10 07:05 | XMS_ITS | Encounter Summary ---
Author Organization [facility] Healthcare Address [address] [place] [address] Care Team Providers Care Ethylene Oxide Panelboard Operator Name Role Phone Timo German MD Primary Care Provider [phone] Reason for Visit * Episode Based Medications (Routine) - Closed Specialty Diagnoses / Procedures Referred By Contac t Referred To Contact Diagnoses Crohn's disease of large intestine without complication (CMS/HCC) (HCC) Procedures LA INFLIXIMAB NOT BIOSIMIL 10MG Myles Mahajan, DO [address] [place] [address] Phone: tel: fax: [facility] [address] [place] [phone] Phone: tel: fax: Referral ID Status Reason Start Date Expiration Date Visits Re quested Visits Authorized [id number] Closed 10/31/2018 11/01/2019 1 1 Encounter Details Date Type Department Care Team (Late st Contact Info) Description 02/18/2019 9:00 AM CDT [facility]fusion [facility] [address] [place] [phone] Crohn's disease of large intestine without complication (CMS/HCC) (Primary Dx) Social History Tobacco Use Types Packs/Day Years Used Date Smoking Tobacco: Former Smokeless Tobacco: Never Alcohol Use Standard Drinks/Week Comments Yes 1 (1 standard drink = 0.6 oz pur e alcohol) Comments Unknown Sex and Gender Information Value Date Recorded Sex Assigned at Not on file 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 Denies fevers or recent infection. No c/o pain. VSS. BP elevated at 170/92, states that she is on BP meds and has been more stressed than usual lately. PIV started +blood return. Pre-meds given. Titrated Remicade infusion per orders, tolerated well. Next appt scheduled and reminder card given to pt. PIV removed, pressure drsg applied. DC ambulatory. documented in this encounter Plan of [...] 650 mg 650 mg, oral, Once, On Sun02/18/19 at 1030, For 1 dose, Please give 30 minutes prior to infusion for infusion reaction prophylaxis.Indications:Crohn 's disease of large intestine without complication (CMS/HCC) (HCC) Given 02/18/2019 9:56 AM CDT 650 mg diphenhydrAMINE (BENADRYL) tab/cap 25 mg 25 mg, oral, Once, On Sun02/18/19 at 1030, For 1 dose, Please give 30 minutes prior to infusion for infusion reaction prophylaxis.Indications:Crohn 's disease of large intestine without complication (CMS/HCC) (HCC) Given 02/18/2019 9:56 AM CDT 25 mg inFLIXimab (REMICADE) 750 mg in sodium chloride 0.9% 250 mL IVPB 750 mg (rounded from 751 mg = 10 mg/kg ? 75.1 kg), intravenous, Administer over 2 Hours, Once, On Sun02/18/19 at 1030, For 1 dose, Infuse with filter tubing [...] intestine without complication (CMS/HCC) (HCC) New Bag 02/18/2019 10:43 AM CDT 750 mg sodium chloride 0.9% infusion 30 mL/hr, intravenous, Continuous, Starting on Sun02/18/19 at 1030Indications:Crohn's disease of large intestine without complication (CMS/HCC) (HCC) New Bag 02/18/2019 10:10 AM CDT 30 mL/hr 30 mL/hr documented in this encounter Orders Medications Ordered That [place] ht Not Have Been Administered Count Last Ordered Date First Ordered Date sodium chloride 0.9% flush 10 mL 1 02/19/20 19 documented in this encounter Care Teams Ethylene Oxide Panelboard Operator Relationship Specialty Start Date End Date Timo German MD [address] [place] [address] PCP - General 04/16/17 06/17/20 documented as of this encounter
--- OUTSIDE RECORDS SUMMARY | 2024-06-10 07:05 | XMS_ITS | Encounter Summary ---
Author Organization [facility] Healthcare Address [address] [place] [address] Care Team Providers Care Director Of Student Financial Services Name Role Phone Timo German MD Primary Care Provider [phone] Reason for Visit * Reason Comments OP Infusion * Episode Based Medications (Routine) - Closed Specialty Diagnoses / Procedures Referred By Contac t Referred To Contact Diagnoses Crohn's disease of large intestine without complication (CMS/HCC) (HCC) Procedures [place] INFLIXIMAB NOT BIOSIMIL 10MG Myles Mahajan, DO [address] [place] [address] Phone: tel: fax: [facility] [address] [place] [phone] Phone: tel: fax: Referral ID Status Reason Start Date Expiration Date Visits Re quested Visits Authorized [id number] Closed 10/31/2018 11/01/2019 1 1 Encounter Details Date Type Department Care Team (Late st Contact Info) Description 05/23/2019 8:30 AM CORRECTIONAL PROGRAM OFFICER Infusion [facility] [address] [place] [phone] Crohn's disease of large intestine without complication (CMS/HCC) (Primary Dx) Social History Tobacco Use Types Packs/Day Years Used Date Smoking Tobacco: Former Smokeless Tobacco: Never Alcohol Use Standard Drinks/Week Comments Yes 1 (1 standard drink = 0.6 oz pur e alcohol) Comments Unknown Sex and Gender Information Value Date Recorded Sex Assigned at Not on file 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:53 AM CORRECTIONAL PROGRAM OFFICER Gender Identity Not on file Sexual Orientation Not on file documented as of this encounter Last Filed Vital Signs Vital Sign Reading Time Taken Comments Blood Pressure 110/67 05/23/2019 8:27 AM CORRECTIONAL PROGRAM OFFICER Pulse 81 05/23/2019 8:27 AM CORRECTIONAL PROGRAM OFFICER Temperature 36.5 ??C (97.7 ??F) 05/23/2019 8:27 AM CS T Respiratory Rate 18 05/23/2019 8:27 AM CORRECTIONAL PROGRAM OFFICER Oxygen Saturation - - Inhaled Oxygen Concentration - - Weight 71.7 kg (158 lb 1.6 oz) 05/23/2019 8:27 A M CORRECTIONAL PROGRAM OFFICER Height - - Body Mass Index 29.87 02/25/2018 2:40 PM CDT documented in this encounter Nursing Notes * Albania Hsieh RN - 05/23/2019 8:30 AM CST Patient arrives for treatment. Patient has no complaints or concerns. IV started, positive for blood return and flushing well. Premeds given. Remicade titrated per protocol. Patient tolerated well. IV removed and pressure dressing applied. Schedule confirmed. Patient discharged ambulatory. [facility] ECTIONAL PROGRAM OFFICER documented in this encounter Plan of Treatment Not on file documented as of this encounter Visit Diagnoses Diagnosis Crohn's disease of large intestine without complication (CMS/HCC) (HCC)- Primary documented in this encounter Administered Medications Inactive Administered Medications - up to 3 most recent administrations Medication Order MAR Action Action Date Dose Rate Site acetaminophen (TYLENOL) tablet 650 mg 650 mg, oral, Once, On Sun05/23/19 at 0900, For 1 dose, Please give 30 minutes prior to infusion for infusion reaction prophylaxis.Indications:Crohn 's disease of large intestine without complication (CMS/HCC) (HCC) Given 05/23/2019 8:33 AM CORRECTIONAL PROGRAM OFFICER 650 mg diphenhydrAMINE (BENADRYL) tab/cap 25 mg 25 mg, oral, Once, On Sun05/23/19 at 0900, For 1 dose, Please give 30 minutes prior to infusion for infusion reaction prophylaxis.Indications:Crohn 's disease of large intestine without complication (CMS/HCC) (HCC) Given 05/23/2019 8:33 AM CORRECTIONAL PROGRAM OFFICER 25 mg inFLIXimab (REMICADE) 700 mg in sodium chloride 0.9% 250 mL IVPB 700 mg, intravenous, Administer over 2 Hours, Once, On Sun05/23/19 at 0900, For 1 dose, Infuse with filter tubing, [...] completed. Use 1.2 micron filter or less, low-sorbing. Administer through line primed with drug.Indications:Crohn's disease of large intestine without complication (CMS/HCC) (HCC) New Bag 05/23/2019 9:05 AM CORRECTIONAL PROGRAM OFFICER 700 mg sodium chloride 0.9% flush 10 mL 10 mL, intravenous, As needed, line care, Starting on Sun05/23/19 at 0827, Flush pre and post IV catheter use.Indications:Crohn's disease of large intestine without complication (CMS/HCC) (HCC) Given 05/23/2019 11:12 AM CORRECTIONAL PROGRAM OFFICER 10 mL sodium chloride 0.9% infusion 30 mL/hr, intravenous, Continuous, Starting on Sun05/23/19 at 0900Indications:Crohn's disease of large intestine without complication (CMS/HCC) (HCC) New Bag 05/23/2019 8:33 AM CORRECTIONAL PROGRAM OFFICER 30 mL/hr 30 mL/hr documented in this encounter Care Teams Director Of Student Financial Services Relationship Specialty Start Date End Date Timo German MD [address] [place] [address] PCP - General 04/16/17 06/17/20 documented as of this encounter
--- OUTSIDE RECORDS SUMMARY | 2024-06-10 07:05 | XMS_ITS | Encounter Summary ---
Author Organization [facility] Healthcare Address [address] [place] [address] Care Team Providers Care Junior Administrative Assistant Name Role Phone Timo German MD Primary Care Provider Reason for Visit * Reason Comments OP Infusion * Episode Based Medications (Routine) - Closed Specialty Diagnoses / Procedures Referred By Contac t Referred To Contact Diagnoses Crohn's disease of large intestine without complication (CMS/HCC) (HCC) Procedures LA INFLIXIMAB NOT BIOSIMIL 10MG Myles Mahajan, DO [address] [place] [address] Phone: tel: fax: [facility] [address] [place] [phone] Phone: tel: fax: Referral ID Status Reason Start Date Expiration Date Visits Re quested Visits Authorized [id number] Closed 01/10/2020 07/22/2020 1 1 Encounter Details Date Type Department Care Team (Late st Contact Info) Description 04/09/2020 8:00 AM CDT Infusion [facility] [address] [place] [phone] Crohn's disease of large intestine without complication (CMS/HCC) (Primary Dx) Social History Tobacco Use Types Packs/Day Years Used Date Smoking Tobacco: Former Smokeless Tobacco: Never Alcohol Use Standard Drinks/Week Comments Yes 1 (1 standard drink = 0.6 oz pur e alcohol) Comments Unknown Sex and Gender Information Value Date Recorded Sex Assigned at Not on file 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 Gender Identity Not on file Sexual Orientation Not on file documented as of this encounter Last Filed Vital Signs Vital Sign Reading Time Taken Comments Blood Pressure 117/56 04/09/2020 8:12 AM CDT Pulse 77 04/09/2020 8:12 AM CDT Temperature 36.6 ??C (97.9 ??F) 04/09/2020 8:12 AM CD T Respiratory Rate 16 04/09/2020 8:12 AM CDT Oxygen Saturation - - Inhaled Oxygen Concentration - - Weight 73.5 kg (162 lb 1.6 oz) 04/09/2020 8:12 A M CDT Height - - Body Mass Index 30.63 12/19/2019 8:18 AM CDT documented in this encounter Nursing Notes * Alyssa Vargas, RN - 04/09/2020 8:00 AM CDT Here for Q4 week remicade, no new issues to report since last tx, denies any sxs fever/infection. Positive blood return from IV, premeds given. Tolerated infusion without any issues, confirmed next 2appts, d/c ambulatory. documented in this encounter Plan [...] 650 mg 650 mg, oral, Once, On Sun04/09/20 at 0845, For 1 dose, Please give 30 minutes prior to infusion for infusion reaction prophylaxis.Indications:Crohn's disease of large intestine without complication (CMS/HCC) (HCC) Given 04/09/2020 8:18 AM CDT 650 mg diphenhydrAMINE (BENADRYL) tab/cap 25 mg 25 mg, oral, Once, On Sun04/09/20 at 0845, For 1 dose, Please give 30 minutes prior to infusion for infusion reaction prophylaxis.Indications:Crohn's disease of large intestine without complication (CMS/HCC) (HCC) Given 04/09/2020 8:18 AM CDT 25 mg inFLIXimab (REMICADE) 750 mg in sodium chloride 0.9% 250 mL IVPB 750 mg, intravenous, Administer over 2 Hours, Once, On Sun04/09/20 at 0845, For 1 dose, Infuse with [...] intestine without complication (CMS/HCC) (HCC) New Bag 04/09/2020 8:56 AM CDT 750 mg documented in this encounter Orders Nursing Count Last Ordered Date First Orde red Date HEIGHT AND WEIGHT 1 04/09/2020 MAINTAIN VITAL SIGNS 1 04/09/2020 ONCBCN PROVIDER COMMUNICATION 1 1 0 documented in this encounter Care Teams Junior Administrative Assistant Relationship Specialty Start Date End Date Timo German MD [address] [place] [address] PCP - General 04/16/17 06/17/20 documented as of this encounter
--- OUTSIDE RECORDS SUMMARY | 2024-06-10 07:05 | XMS_ITS | Encounter Summary ---
Author Organization [facility] Healthcare Address [address] [place] [address] Care Team Providers Care Radiotelegraph Operator Servicer Name Role Phone Timo German MD Primary Care Provider [phone] Reason for Visit * Episode Based Medications (Routine) - Closed Specialty Diagnoses / Procedures Referred By Contac t Referred To Contact Diagnoses Crohn's disease of large intestine without complication (CMS/HCC) (HCC) Procedures [place] INFLIXIMAB NOT BIOSIMIL 10MG Myles Mahajan, DO [address] [place] [address] Phone: tel: fax: [facility] [address] [place] [phone] Phone: tel: fax: Referral ID Status Reason Start Date Expiration Date Visits Re quested Visits Authorized [id number] Closed 10/31/2018 11/01/2019 1 1 Encounter Details Date Type Department Care Team (Late st Contact Info) Description 10/22/2019 9:30 AM CDT Infusion [facility] at [address] [phone] Crohn's disease of large intestine without complication (CMS/HCC) (Primary Dx) Social History Tobacco Use Types Packs/Day Years Used Date Smoking Tobacco: Former Smokeless Tobacco: Never Alcohol Use Standard Drinks/Week Comments Yes 1 (1 standard drink = 0.6 oz pur e alcohol) Comments Unknown Sex and Gender Information Value Date Recorded Sex Assigned at Not on file 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:53 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 Gender Identity Not on file Sexual Orientation Not on file documented as of this encounter Last Filed Vital Signs Vital Sign Reading Time Taken Comments Blood Pressure 118/71 10/22/2019 9:43 AM CDT Pulse 82 10/22/2019 9:43 AM CDT Temperature 36.4 ??C (97.5 ??F) 10/22/2019 9:43 AM CD T Respiratory Rate 16 10/22/2019 9:43 AM CDT Oxygen Saturation - - Inhaled Oxygen Concentration - - Weight 77.3 kg (170 lb 8 oz) 10/22/2019 9:39 AM CDT Height - - Body Mass Index 32.22 02/25/2018 2:40 PM CDT documented in this encounter Nursing Notes * Karon Cheung RN - 10/22/2019 9:30 AM CDT Pt here for remicade, no complaints or concerns, tolerated well, schedule confirmed, IV dc documented in this encounter Plan of Treatment Not on file documented as of this encounter Visit Diagnoses Diagnosis Crohn's disease of large intestine without complication (CMS/HCC) ([facility])- Primary documented in this encounter Administered Medications Inactive Administered Medications - up to 3 most recent administrations Medication Order MAR Action Action Date Dose Rate Site acetaminophen (TYLENOL) tablet 650 mg 650 mg, oral, Once, On Sun10/22/19 at 1015, For 1 dose, Please give 30 minutes prior to infusion for infusion reaction prophylaxis.Indications:Crohn's disease of large intestine without complication (CMS/HCC) (HCC) Given 10/22/2019 9:44 AM CDT 650 mg diphenhydrAMINE (BENADRYL) tab/cap 25 mg 25 mg, oral, Once, On Sun10/22/19 at 1015, For 1 dose, Please give 30 minutes prior to infusion for infusion reaction prophylaxis.Indications:Crohn's disease of large intestine without complication (CMS/HCC) (HCC) Given 10/22/2019 9:44 AM CDT 25 mg inFLIXimab (REMICADE) 770 mg in sodium chloride 0.9% 250 mL IVPB 770 mg (rounded from 773 mg = 10 mg/kg ? 77.3 kg), intravenous, Once, On Sun10/22/19 at 1015, For 1 dose, Infuse with filter tubing [...] intestine without complication (CMS/HCC) (HCC) New Bag 10/22/2019 9:59 AM CDT 770 mg documented in this encounter Care Teams Radiotelegraph Operator Servicer Relationship Specialty Start Date End Date Timo German MD [address] [place] [address] PCP - General 04/16/17 06/17/20 documented as of this encounter
--- OUTSIDE RECORDS SUMMARY | 2024-06-10 07:05 | XMS_ITS | Encounter Summary ---
Author Organization [facility] Healthcare Address [address] [place] [address] Care Team Providers Care Parking Control Officer Name Role Phone Timo German MD Primary Care Provider [phone] Reason for Visit * Episode Based Medications (Routine) - Closed Specialty Diagnoses / Procedures Referred By Contac t Referred To Contact Diagnoses Crohn's disease of large intestine without complication (CMS/HCC) (HCC) Procedures [place] INFLIXIMAB NOT BIOSIMIL 10MG Myles Mahajan, DO [address] [place] [address] Phone: tel: fax: [facility] [address] [place] [phone] Phone: tel: fax: Referral ID Status Reason Start Date Expiration Date Visits Re quested Visits Authorized [id number] Closed 10/31/2018 11/01/2019 1 1 Encounter Details Date Type Department Care Team (Late st Contact Info) Description 09/19/2019 8:30 AM CDT Infusion [facility] at [address] [phone] Crohn's disease of large intestine without complication (CMS/HCC) (Primary Dx) Social History Tobacco Use Types Packs/Day Years Used Date Smoking Tobacco: Former Smokeless Tobacco: Never Alcohol Use Standard Drinks/Week Comments Yes 1 (1 standard drink = 0.6 oz pur e alcohol) Comments Unknown Sex and Gender Information Value Date Recorded Sex Assigned at Not on file 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 No / Unsure 08/22/2019 8:40 AM CDT documented as of this encounter Last Filed Vital Signs Vital Sign Reading Time Taken Comments Blood Pressure 117/75 09/19/2019 8:19 AM CDT Pulse 74 09/19/2019 8:19 AM CDT Temperature 36.5 ??C (97.7 ??F) 09/19/2019 8:19 AM CD T Respiratory Rate 16 09/19/2019 8:19 AM CDT Oxygen Saturation - - Inhaled Oxygen Concentration - - Weight 74.3 kg (163 lb 14.4 oz) 09/19/2019 8:19 AM CDT Height - - Body Mass Index 30.97 02/25/2018 2:40 PM CDT documented in this encounter Nursing Notes * Kourtney Dooley RN - 09/19/2019 8:30 AM CDT Arrives for infusion, reports feeling well. Denies fever or s/s of infection. Premeds given. Piv started, tolerated infusion well. IV removed, pressure dressing to site. Schedule confirmed.Kourtney Dooley RN documented in this encounter Plan of Treatment Not on file documented as of this encounter Visit Diagnoses Diagnosis Crohn's disease of large intestine without complication (CMS/HCC) (HCC)- Primary documented in this encounter Administered Medications Inactive Administered Medications - up to 3 most recent administrations Medication Order MAR Action Action Date Dose Rate Site acetaminophen (TYLENOL) tablet 650 mg 650 mg, oral, Once, On Sun09/19/19 at 0900, For 1 dose, Please give 30 minutes prior to infusion for infusion reaction prophylaxis.Indications:Crohn 's disease of large intestine without complication (CMS/HCC) (HCC) Given 09/19/2019 8:21 AM CDT 650 mg diphenhydrAMINE (BENADRYL) tab/cap 25 mg 25 mg, oral, Once, On Sun09/19/19 at 0900, For 1 dose, Please give 30 minutes prior to infusion for infusion reaction prophylaxis.Indications:Crohn 's disease of large intestine without complication (CMS/HCC) ([facility]) Given 09/19/2019 8:21 AM CDT 25 mg inFLIXimab (REMICADE) 740 mg in sodium chloride 0.9% 250 mL IVPB 740 mg (rounded from 743 mg = 10 mg/kg ? 74.3 kg), intravenous, Once, On Sun09/19/19 at 0900, For 1 dose, Infuse with [...] without complication (CMS/HCC) ([facility]) New Bag 09/19/2019 8:58 AM CDT 740 mg sodium chloride 0.9% infusion 30 mL/hr, intravenous, Once, On Sun09/19/19 at 0830, For 1 doseIndications:Crohn's disease of large intestine without complication (CMS/HCC) ([facility]) New Bag 09/19/2019 8:23 AM CDT 30 mL/hr 30 mL/hr documented in this encounter Care Teams Parking Control Officer Relationship Specialty Start Date End Date Timo German MD [address] [place] [id number] PCP - General 04/16/17 06/17/20 documented as of this encounter
--- OUTSIDE RECORDS SUMMARY | 2024-06-10 07:05 | XMS_ITS | Encounter Summary ---
Author Organization [facility] Healthcare Address [address] [place] [address] Care Team Providers Care Certified Welder Name Role Phone Timo German MD Primary Care Provider [phone] Reason for Visit * Reason Comments OP Infusion * Episode Based Medications (Routine) - Closed Specialty Diagnoses / Procedures Referred By Contac t Referred To Contact Diagnoses Crohn's disease of large intestine without complication (CMS/HCC) (HCC) Procedures [place] INFLIXIMAB NOT BIOSIMIL 10MG Myles Mahajan, DO [address] [place] [address] Phone: tel: fax: [facility] [address] [place] [phone] Phone: tel: fax: Referral ID Status Reason Start Date Expiration Date Visits Re quested Visits Authorized [id number] Closed 01/10/2020 07/22/2020 1 1 Encounter Details Date Type Department Care Team (Late st Contact Info) Description 05/14/2020 8:00 AM NANNY CAREGIVER Infusion [facility] [address] [place] [phone] Crohn's disease of large intestine without complication (CMS/HCC) (Primary Dx) Social History Tobacco Use Types Packs/Day Years Used Date Smoking Tobacco: Former Smokeless Tobacco: Never Alcohol Use Standard Drinks/Week Comments Yes 1 (1 standard drink = 0.6 oz pur e alcohol) Comments Unknown Sex and Gender Information Value Date Recorded Sex Assigned at Not on file 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:53 AM NANNY CAREGIVER Gender Identity Not on file Sexual Orientation Not on file documented as of this encounter Last Filed Vital Signs Vital Sign Reading Time Taken Comments Blood Pressure 116/80 05/14/2020 8:01 AM NANNY CAREGIVER Pulse 79 05/14/2020 8:01 AM NANNY CAREGIVER Temperature 37 ??C (98.6 ??F) 05/14/2020 8:01 AM NANNY CAREGIVER Respiratory Rate - - Oxygen Saturation - - Inhaled Oxygen Concentration - - Weight 73.8 kg (162 lb 11.2 oz) 05/14/2020 8:01 AM NANNY CAREGIVER Height - - Body Mass Index 30.74 12/19/2019 8:18 AM CDT documented in this encounter Nursing Notes * Marry Carvajal RN - 05/14/2020 8:00 AM CST Pt here for remicade. VSS. States she is feeling well w/o complaints other than crohn's related diarrhea. IV placed, +blood return. Premeds given. Tolerated infusion. IV discontinued. Schedule confirmed. Y CAREGIVER documented in this encounter Plan of Treatment Not on file documented as of this encounter Visit Diagnoses Diagnosis Crohn's disease of large intestine without complication (CMS/HCC) (HCC)- Primary documented in this encounter Administered Medications Inactive Administered Medications - up to 3 most recent administrations Medication Order MAR Action Action Date Dose Rate Site acetaminophen (TYLENOL) tablet 650 mg 650 mg, oral, Once, On Sun05/14/20 at 0845, For 1 dose, Please give 30 minutes prior to infusion for infusion reaction prophylaxis.Indications:Crohn's disease of large intestine without complication (CMS/HCC) (HCC) Given 05/14/2020 8:17 AM NANNY CAREGIVER 650 mg diphenhydrAMINE (BENADRYL) tab/cap 25 mg 25 mg, oral, Once, On Sun05/14/20 at 0845, For 1 dose, Please give 30 minutes prior to infusion for infusion reaction prophylaxis.Indications:Crohn's disease of large intestine without complication (CMS/HCC) (HCC) Given 05/14/2020 8:09 AM NANNY CAREGIVER 25 mg inFLIXimab (REMICADE) 700 mg in sodium chloride 0.9% 250 mL IVPB 700 mg, intravenous, Administer over 2 Hours, Once, On Sun05/14/20 at 0845, For 1 dose, Infuse with [...] intestine without complication (CMS/HCC) (HCC) New Bag 05/14/2020 8:36 AM NANNY CAREGIVER 700 mg documented in this encounter Care Teams Certified Welder Relationship Specialty Start Date End Date Timo German MD [address] [place] [address] PCP - General 04/16/17 06/17/20 documented as of this encounter
--- OUTSIDE RECORDS SUMMARY | 2024-06-10 07:05 | XMS_ITS | Encounter Summary ---
Author Organization [facility] Healthcare Address [address] [place] [address] Care Team Providers Care Traffic Observer Name Role Phone Timo German MD Primary Care Provider [phone] Reason for Visit * Reason Comments OP Infusion * Episode Based Medications (Routine) - Closed Specialty Diagnoses / Procedures Referred By Contac t Referred To Contact Diagnoses Crohn's disease of large intestine without complication (CMS/HCC) (HCC) Procedures [place] INFLIXIMAB NOT BIOSIMIL 10MG Myles Mahajan, DO [address] [place] [address] Phone: tel: fax: [facility] [address] [place] [phone] Phone: tel: fax: Referral ID Status Reason Start Date Expiration Date Visits Re quested Visits Authorized [id number] Closed 01/10/2020 07/22/2020 1 1 Encounter Details Date Type Department Care Team (Late st Contact Info) Description 03/12/2020 8:30 AM CDT Infusion [facility] [address] [place] [phone] Crohn's disease of large intestine without complication (CMS/HCC) (Primary Dx) Social History Tobacco Use Types Packs/Day Years Used Date Smoking Tobacco: Former Smokeless Tobacco: Never Alcohol Use Standard Drinks/Week Comments Yes 1 (1 standard drink = 0.6 oz pur e alcohol) Comments Unknown Sex and Gender Information Value Date Recorded Sex Assigned at Not on file 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 Gender Identity Not on file Sexual Orientation Not on file documented as of this encounter Last Filed Vital Signs Vital Sign Reading Time Taken Comments Blood Pressure 126/80 03/12/2020 8:27 AM CDT Pulse 80 03/12/2020 8:27 AM CDT Temperature 36.7 ??C (98.1 ??F) 03/12/2020 8:27 AM CD T Respiratory Rate 18 03/12/2020 8:27 AM CDT Oxygen Saturation 97% 03/12/2020 8:27 AM CDT Inhaled Oxygen Concentration - - Weight 71.8 kg (158 lb 4.8 oz) 03/12/2020 8:27 A M CDT Height - - Body Mass Index 29.91 12/19/2019 8:18 AM CDT documented in this encounter Nursing Notes * Heaven Heard RN - 03/12/2020 8:30 AM CDT Arrives for remicade infusion. Vital signs and symptoms reviewed. TB exp 10/29, no s/s of infection.PIV started, positive for blood return. Pre medications given and remicade titrated over 2 hours, per order set. Infusion tolerated and PIV removed. Schedule confirmed, copy provided to patient, discharge ambulatory. Heaven Heard RN. documented in this encounter Plan of Treatment Not on file documented as of this encounter Visit Diagnoses Diagnosis Crohn's disease of large intestine without complication (CMS/HCC) ([facility])- Primary documented in this encounter Administered Medications Inactive Administered Medications - up to 3 most recent administrations Medication Order MAR Action Action Date Dose Rate Site acetaminophen (TYLENOL) tablet 650 mg 650 mg, oral, Once, On Sun03/12/20 at 0900, For 1 dose, Please give 30 minutes prior to infusion for infusion reaction prophylaxis.Indications:Crohn's disease of large intestine without complication (CMS/HCC) (HCC) Given 03/12/2020 8:31 AM CDT 650 mg diphenhydrAMINE (BENADRYL) tab/cap 25 mg 25 mg, oral, Once, On Sun03/12/20 at 0900, For 1 dose, Please give 30 minutes prior to infusion for infusion reaction prophylaxis.Indications:Crohn's disease of large intestine without complication (CMS/HCC) (HCC) Given 03/12/2020 8:31 AM CDT 25 mg inFLIXimab (REMICADE) 700 mg in sodium chloride 0.9% 250 mL IVPB 700 mg, intravenous, Administer over 2 Hours, Once, On Sun03/12/20 at 0900, For 1 dose, Infuse with [...] intestine without complication (CMS/HCC) (HCC) New Bag 03/12/2020 8:58 AM CDT 700 mg documented in this encounter Orders Nursing Count Last Ordered Date First Orde red Date HEIGHT AND WEIGHT 1 03/12/2020 MAINTAIN VITAL SIGNS 1 03/12/2020 ONCBCN PROVIDER COMMUNICATION 1 1 0 documented in this encounter Care Teams Traffic Observer Relationship Specialty Start Date End Date Timo German MD [facility] [place] [address] PCP - General 04/16/17 06/17/20 documented as of this encounter
--- OUTSIDE RECORDS SUMMARY | 2024-06-10 07:05 | XMS_ITS | Encounter Summary ---
Author Organization [facility] Healthcare Address [address] [place] [address] Care Team Providers Care Health Outcomes Liaison Name Role Phone Timo German MD Primary Care Provider [phone] Reason for Visit * Reason Comments OP Infusion * Episode Based Medications (Routine) - Closed Specialty Diagnoses / Procedures Referred By Contac t Referred To Contact Diagnoses Crohn's disease of large intestine without complication (CMS/HCC) (HCC) Procedures [place] INFLIXIMAB NOT BIOSIMIL 10MG Myles Mahajan, DO [address] [place] [address] Phone: tel: fax: [facility] [address] [place] [phone] Phone: tel: fax: Referral ID Status Reason Start Date Expiration Date Visits Re quested Visits Authorized [id number] Closed 10/31/2018 11/01/2019 1 1 Encounter Details Date Type Department Care Team (Late st Contact Info) Description 04/18/2019 8:00 AM CAP CUTTER Infusion [facility] [address] [place] [phone] Crohn's disease of large intestine without complication (CMS/HCC) (Primary Dx) Social History Tobacco Use Types Packs/Day Years Used Date Smoking Tobacco: Former Smokeless Tobacco: Never Alcohol Use Standard Drinks/Week Comments Yes 1 (1 standard drink = 0.6 oz pur e alcohol) Comments Unknown Sex and Gender Information Value Date Recorded Sex Assigned at Not on file 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:53 AM CAP CUTTER Gender Identity Not on file Sexual Orientation Not on file documented as of this encounter Last Filed Vital Signs Vital Sign Reading Time Taken Comments Blood Pressure 119/87 04/18/2019 8:05 AM CAP CUTTER Pulse 89 04/18/2019 8:05 AM CAP CUTTER Temperature 36.2 ??C (97.2 ??F) 04/18/2019 8:05 AM CS T Respiratory Rate 16 04/18/2019 8:05 AM CAP CUTTER Oxygen Saturation - - Inhaled Oxygen Concentration - - Weight 72.8 kg (160 lb 6.4 oz) 04/18/2019 8:05 A M CAP CUTTER Height - - Body Mass Index 30.31 02/25/2018 2:40 PM CDT documented in this encounter Nursing Notes * Jason Watt RN - 04/18/2019 8:00 AM CST Pt arrives for remicade infusion. VSS, denies recent infections or flu-like symptoms. PIV started with good blood return noted. Premeds administered. Remicade started and titrated per orders, pt tolerated well, no s/s of reaction noted. PIV discontinued and pressure dressing applied. Next appt scheduled, pt ambulatory at discharge. CUTTER documented in this encounter Plan of Treatment Not on file documented as of this encounter Visit Diagnoses Diagnosis Crohn's disease of large intestine without complication (CMS/HCC) (HCC)- Primary documented in this encounter Administered Medications Inactive Administered Medications - up to 3 most recent administrations Medication Order MAR Action Action Date Dose Rate Site acetaminophen (TYLENOL) tablet 650 mg 650 mg, oral, Once, On Sun04/18/19 at 0845, For 1 dose, Please give 30 minutes prior to infusion for infusion reaction prophylaxis.Indications:Crohn 's disease of large intestine without complication (CMS/HCC) (HCC) Given 04/18/2019 8:11 AM CAP CUTTER 650 mg diphenhydrAMINE (BENADRYL) tab/cap 25 mg 25 mg, oral, Once, On Sun04/18/19 at 0845, For 1 dose, Please give 30 minutes prior to infusion for infusion reaction prophylaxis.Indications:Crohn 's disease of large intestine without complication (CMS/HCC) (HCC) Given 04/18/2019 8:11 AM CAP CUTTER 25 mg inFLIXimab (REMICADE) 700 mg in sodium chloride 0.9% 250 mL IVPB 700 mg, intravenous, Administer over 2 Hours, Once, On Sun04/18/19 at 0845, For 1 dose, Infuse with [...] large intestine without complication (CMS/HCC) ([facility]) New Bag 04/18/2019 8:42 AM CAP CUTTER 700 mg sodium chloride 0.9% infusion 30 mL/hr, intravenous, Continuous, Starting on Sun04/18/19 at 0845Indications:Crohn's disease of large intestine without complication (CMS/HCC) ([facility]) New Bag 04/18/2019 8:11 AM CAP CUTTER 30 mL/hr 30 mL/hr documented in this encounter Care Teams Health Outcomes Liaison Relationship Specialty Start Date End Date Timo German MD [address] [place] [address] PCP - General 04/16/17 06/17/20 documented as of this encounter
--- OUTSIDE RECORDS SUMMARY | 2024-06-10 07:05 | XMS_ITS | Encounter Summary ---
Author Organization [facility] Facility Care Team Providers Care Chemistry Faculty Member Name Role Phone Timo German MD Primary Care Provider [phone] Encounter Details Date Type Department Care Team (Latest Contact Info) Description 08/22/2019 Travel Social History Tobacco Use Types Packs/Day Years Used Date Smoking Tobacco: Former Smokeless Tobacco: Never Alcohol Use Standard Drinks/Week Comments Yes 1 (1 standard drink = 0.6 oz pur e alcohol) Comments Unknown Sex and Gender Information Value Date Recorded Sex Assigned at Not on file 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:53 AM EQUINE BREEDER Gender Identity Not on file Sexual Orientation Not on file COVID-19 Exposure Response Date Recorded In the last month, have you been in contact with someone who was confirmed or suspected to have Coronavirus / COVID-19? No / Unsure 08/22/2019 8:40 AM CDT documented as of this encounter Plan of Treatment Not on file documented as of this encounter Visit Diagnoses Not on filedocumented in this encounter Care Teams Chemistry Faculty Member Relationship Specialty Start Date End Date Timo German MD [address] [place] [address] PCP - General 04/16/17 06/17/20 documented as of this encounter
--- OUTSIDE RECORDS SUMMARY | 2024-06-10 07:05 | XMS_ITS | Encounter Summary ---
Author Organization [facility] Healthcare Address [address] [place] [address] Care Team Providers Care Warehouse Operations Manager Name Role Phone Timo German MD Primary Care Provider [phone] Reason for Visit * Reason Comments OP Infusion * Episode Based Medications (Routine) - Closed Specialty Diagnoses / Procedures Referred By Contac t Referred To Contact Diagnoses Crohn's disease of large intestine without complication (CMS/HCC) (HCC) Procedures [place] INFLIXIMAB NOT BIOSIMIL 10MG Myles Mahajan, DO [address] [place] [address] Phone: tel: fax: [facility] [address] [place] [phone] Phone: tel: fax: Referral ID Status Reason Start Date Expiration Date Visits Re quested Visits Authorized [id number] Closed 11/05/2019 05/16/2021 1 1 Encounter Details Date Type Department Care Team (Late st Contact Info) Description 11/21/2019 9:00 AM CDT Infusion [facility] [address] [place] [phone] Crohn's disease of large intestine without complication (CMS/HCC) (Primary Dx) Social History Tobacco Use Types Packs/Day Years Used Date Smoking Tobacco: Former Smokeless Tobacco: Never Alcohol Use Standard Drinks/Week Comments Yes 1 (1 standard drink = 0.6 oz pur e alcohol) Comments Unknown Sex and Gender Information Value Date Recorded Sex Assigned at Not on file 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 Gender Identity Not on file Sexual Orientation Not on file documented as of this encounter Last Filed Vital Signs Vital Sign Reading Time Taken Comments Blood Pressure 124/68 11/21/2019 8:57 AM CDT Pulse - - Temperature 36.3 ??C (97.4 ??F) 11/21/2019 8:57 AM CD T Respiratory Rate - - Oxygen Saturation - - Inhaled Oxygen Concentration - - Weight 77.3 kg (170 lb 6.4 oz) 11/21/2019 8:57 A M CDT Height - - Body Mass Index 32.2 02/25/2018 2:40 PM CDT documented in this encounter Progress Notes * Christine Denton [facility] - 11/21/2019 9:00 AM CDT Dose (10mg/kg) has been rounded from 770mg to 750mg (nearest vial size) per [facility] policy./pjd documented in this encounter Nursing Notes * Marry Carvajal RN - 11/21/2019 9:00 AM CDT Pt here for infusion. VSS. States she is feeling well [...] 650 mg 650 mg, oral, Once, On Sun11/21/19 at 0930, For 1 dose, Please give 30 minutes prior to infusion for infusion reaction prophylaxis.Indications:Crohn's disease of large intestine without complication (CMS/HCC) (HCC) Given 11/21/2019 9:03 AM CDT 650 mg diphenhydrAMINE (BENADRYL) tab/cap 25 mg 25 mg, oral, Once, On Sun11/21/19 at 0930, For 1 dose, Please give 30 minutes prior to infusion for infusion reaction prophylaxis.Indications:Crohn's disease of large intestine without complication (CMS/HCC) (HCC) Given 11/21/2019 9:03 AM CDT 25 mg inFLIXimab (REMICADE) 750 mg in sodium chloride 0.9% 250 mL IVPB 750 mg, intravenous, Administer over 2 Hours, Once, On Sun11/21/19 at 0930, For 1 dose, Infuse with filter tubing, [...] disease of large intestine without complication (CMS/HCC) ([facility]) New Bag 11/21/2019 9:31 AM CDT 750 mg documented in this encounter Care Teams Warehouse Operations Manager Relationship Specialty Start Date End Date Timo German MD [facility] [place] [address] PCP - General 04/16/17 06/17/20 documented as of this encounter
--- OUTSIDE RECORDS SUMMARY | 2024-06-10 07:05 | XMS_ITS | Encounter Summary ---
Author Organization [facility] Healthcare Address [address] [place] [address] Care Team Providers Care Tripe Cooker Name Role Phone Timo German MD Primary Care Provider Encounter Details Date Type Department Care Team (Late st Contact Info) Description 03/05/[address] 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
--- OUTSIDE RECORDS SUMMARY | 2024-06-10 07:05 | XMS_ITS | Encounter Summary ---
Author Organization [facility] Healthcare Address [address] [place] [address] Care Team Providers Care Steward/Stewardess Club Car Name Role Phone Timo German MD Primary Care Provider [phone] Reason for Visit * Reason Comments Chemotherapy * Episode Based Medications (Routine) - Closed Specialty Diagnoses / Procedures Referred By Contac t Referred To Contact Diagnoses Crohn's disease of large intestine without complication (CMS/HCC) (HCC) Procedures [place] INFLIXIMAB NOT BIOSIMIL 10MG Myles Mahajan, DO [address] [place] [address] Phone: tel: fax: [facility] [address] [place] [phone] Phone: tel: fax: Referral ID Status Reason Start Date Expiration Date Visits Re quested Visits Authorized [id number] Closed 11/05/2019 05/16/2021 1 1 Encounter Details Date Type Department Care Team (Late st Contact Info) Description 12/19/2019 8:30 AM CDT Infusion [facility] [address] [place] [phone] Crohn's disease of large intestine without complication (CMS/HCC) (Primary Dx) Social History Tobacco Use Types Packs/Day Years Used Date Smoking Tobacco: Former Smokeless Tobacco: Never Alcohol Use Standard Drinks/Week Comments Yes 1 (1 standard drink = 0.6 oz pur e alcohol) Comments Unknown Sex and Gender Information Value Date Recorded Sex Assigned at Not on file 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 Gender Identity Not on file Sexual Orientation Not on file documented as of this encounter Last Filed Vital Signs Vital Sign Reading Time Taken Comments Blood Pressure 107/71 12/19/2019 8:18 AM CDT Pulse 78 12/19/2019 8:18 AM CDT Temperature 37 ??C (98.6 ??F) 12/19/2019 8:18 AM CDT Respiratory Rate 16 12/19/2019 8:18 AM CDT Oxygen Saturation - - Inhaled Oxygen Concentration - - Weight 72.3 kg (159 lb 4.8 oz) 12/19/2019 8:18 A M CDT Height 154.9 cm (5' 1 ) 12/19/2019 8:18 AM CDT Body Mass Index 30.1 12/19/2019 8:18 AM CDT documented in this encounter Nursing Notes * Pamela Ocampo RN - 12/19/2019 8:30 AM CDT Pt here for infusion. VSS. [...] 650 mg 650 mg, oral, Once, On Sun12/19/19 at 0900, For 1 dose, Please give 30 minutes prior to infusion for infusion reaction prophylaxis.Indications:Crohn 's disease of large intestine without complication (CMS/HCC) (HCC) Given 12/19/2019 8:21 AM CDT 650 mg diphenhydrAMINE (BENADRYL) tab/cap 25 mg 25 mg, oral, Once, On Sun12/19/19 at 0900, For 1 dose, Please give 30 minutes prior to infusion for infusion reaction prophylaxis.Indications:Crohn 's disease of large intestine without complication (CMS/HCC) (HCC) Given 12/19/2019 8:21 AM CDT 25 mg inFLIXimab (REMICADE) 700 mg in sodium chloride 0.9% 250 mL IVPB 700 mg, intravenous, Administer over 2 Hours, Once, On Sun12/19/19 at 0900, For 1 dose, Infuse with [...] intestine without complication (CMS/HCC) (HCC) New Bag 12/19/2019 8:45 AM CDT 700 mg sodium chloride 0.9% infusion 50 mL/hr, intravenous, Continuous, Starting on Sun12/19/19 at 0900Indications:Crohn's disease of large intestine without complication (CMS/HCC) (HCC) New Bag 12/19/2019 8:43 AM CDT 50 mL/hr 50 mL/hr documented in this encounter Orders Nursing Count Last Ordered Date First Orde red Date HEIGHT AND WEIGHT 12/19/2019 MAINTAIN VITAL SIGNS 1 12/19/2019 ONCBCN PROVIDER COMMUNICATION 1 0 documented in this encounter Care Teams Steward/Stewardess Club Car Relationship Specialty Start Date End Date Timo German MD [address] [place] [address] PCP - General 04/16/17 06/17/20 documented as of this encounter
--- OUTSIDE RECORDS SUMMARY | 2024-06-10 07:05 | XMS_ITS | Encounter Summary ---
Author Organization [facility] Healthcare Address [address] [place] [address] Care Team Providers Care Ekg Monitor Name Role Phone Timo German MD Primary Care Provider [phone] Reason for Visit * Reason Comments OP Infusion * Episode Based Medications (Routine) - Closed Specialty Diagnoses / Procedures Referred By Contac t Referred To Contact Diagnoses Crohn's disease of large intestine without complication (CMS/HCC) (HCC) Procedures [place] INFLIXIMAB NOT BIOSIMIL 10MG Myles Mahajan, DO [address] [place] [address] Phone: tel: fax: [facility] [address] [place] [phone] Phone: tel: fax: Referral ID Status Reason Start Date Expiration Date Visits Re quested Visits Authorized [id number] Closed 10/31/2018 11/01/2019 1 1 Encounter Details Date Type Department Care Team (Late st Contact Info) Description 06/27/2019 1:30 PM SPARK PLUG TESTER Infusion [facility] [address] [place] [phone] Crohn's disease of large intestine without complication (CMS/HCC) (Primary Dx) Social History Tobacco Use Types Packs/Day Years Used Date Smoking Tobacco: Former Smokeless Tobacco: Never Alcohol Use Standard Drinks/Week Comments Yes 1 (1 standard drink = 0.6 oz pur e alcohol) Comments Unknown Sex and Gender Information Value Date Recorded Sex Assigned at Not on file 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:53 AM SPARK PLUG TESTER Gender Identity Not on file Sexual Orientation Not on file documented as of this encounter Last Filed Vital Signs Vital Sign Reading Time Taken Comments Blood Pressure 115/73 06/27/2019 1:35 PM SPARK PLUG TESTER Pulse 94 06/27/2019 1:35 PM SPARK PLUG TESTER Temperature 36.8 ??C (98.3 ??F) 06/27/2019 1:35 PM CS T Respiratory Rate - - Oxygen Saturation - - Inhaled Oxygen Concentration - - Weight 72.5 kg (159 lb 14.4 oz) 020 1:35 PM SPARK PLUG TESTER Height - - Body Mass Index 30.21 02/25/2018 2:40 PM CDT documented in this encounter Nursing Notes * Marry Carvajal RN - 06/27/2019 1:30 PM CST Pt here for tx. VSS. States she is feeling well w/o complaints other than abd cramping because she is one week overdue for remicade. Denies recent fevers, infections. IV placed, +blood return. Premeds given. Tolerated infusion. IV discontinued. Schedule confirmed. K PLUG TESTER documented in this encounter Plan of Treatment Not on file documented as of this encounter Visit Diagnoses Diagnosis Crohn's disease of large intestine without complication (CMS/HCC) (HCC)- Primary documented in this encounter Administered Medications Inactive Administered Medications - up to 3 most recent administrations Medication Order MAR Action Action Date Dose Rate Site acetaminophen (TYLENOL) tablet 650 mg 650 mg, oral, Once, On Sun06/27/19 at 1415, For 1 dose, Please give 30 minutes prior to infusion for infusion reaction prophylaxis.Indications:Crohn 's disease of large intestine without complication (CMS/HCC) (HCC) Given 06/27/2019 1:41 PM SPARK PLUG TESTER 650 mg diphenhydrAMINE (BENADRYL) tab/cap 25 mg 25 mg, oral, Once, On Sun06/27/19 at 1415, For 1 dose, Please give 30 minutes prior to infusion for infusion reaction prophylaxis.Indications:Crohn 's disease of large intestine without complication (CMS/HCC) (HCC) Given 06/27/2019 1:41 PM SPARK PLUG TESTER 25 mg inFLIXimab (REMICADE) 750 mg in sodium chloride 0.9% 250 mL IVPB 750 mg, intravenous, Administer over 2 Hours, Once, On Sun06/27/19 at 1415, For 1 dose, Infuse with filter tubing, [...] intestine without complication (CMS/HCC) (HCC) New Bag 06/27/2019 1:57 PM SPARK PLUG TESTER 750 mg sodium chloride 0.9% infusion 30 mL/hr, intravenous, Continuous, Starting on Sun06/27/19 at 1415Indications:Crohn's disease of large intestine without complication (CMS/HCC) (HCC) New Bag 06/27/2019 1:50 PM SPARK PLUG TESTER 30 mL/hr 30 mL/hr documented in this encounter Care Teams Ekg Monitor Relationship Specialty Start Date End Date Timo German MD [address] [place] [id number] PCP - General 04/16/17 06/17/20 documented as of this encounter
--- OUTSIDE RECORDS SUMMARY | 2024-06-10 07:05 | XMS_ITS | Encounter Summary ---
Author Organization [facility] Healthcare Address [address] [place] [address] Care Team Providers Care Wireless Retail Manager Name Role Phone Timo German MD Primary Care Provider [phone] Reason for Visit * Reason Comments OP Infusion * Episode Based Medications (Routine) - Closed Specialty Diagnoses / Procedures Referred By Contac t Referred To Contact Diagnoses Crohn's disease of large intestine without complication (CMS/HCC) (HCC) Procedures [place] INFLIXIMAB NOT BIOSIMIL 10MG Myles Mahajan, DO [address] [place] [place] [address] Phone: tel: fax: [facility] [address] [place] [phone] Phone: tel: fax: Referral ID Status Reason Start Date Expiration Date Visits Re quested Visits Authorized [id number] Closed 10/31/2018 11/01/2019 1 1 Encounter Details Date Type Department Care Team (Late st Contact Info) Description 08/22/2019 8:30 AM CDT Infusion [facility] [address] [place] [phone] Crohn's disease of large intestine without complication (CMS/HCC) (Primary Dx) Social History Tobacco Use Types Packs/Day Years Used Date Smoking Tobacco: Former Smokeless Tobacco: Never Alcohol Use Standard Drinks/Week Comments Yes 1 (1 standard drink = 0.6 oz pur e alcohol) Comments Unknown Sex and Gender Information Value Date Recorded Sex Assigned at Not on file 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 No / Unsure 08/22/2019 8:40 AM CDT documented as of this encounter Last Filed Vital Signs Vital Sign Reading Time Taken Comments Blood Pressure 133/80 08/22/2019 8:36 AM CDT Pulse 75 08/22/2019 8:36 AM CDT Temperature 36.4 ??C (97.6 ??F) 08/22/2019 8:36 AM CD T Respiratory Rate 18 08/22/2019 8:36 AM CDT Oxygen Saturation 97% 08/22/2019 8:36 AM CDT Inhaled Oxygen Concentration - - Weight 73.1 kg (161 lb 1.6 oz) 08/22/2019 8:36 A M CDT Height - - Body Mass Index 30.44 02/25/2018 2:40 PM CDT documented in this encounter Nursing Notes * Daily Ag RN - 08/22/2019 8:30 AM CDT Pt presents to the clinic for her scheduled Remicade infusion. Pt states that she feels well and iswithout complaint. Denies recent fevers or infection. Premed given. PIV placed. Titrated infusion per orders. Pt tolerated infusion. PIV removed, pressure dressing placed. Next apt made and apt card given to pt. Discharged ambulatory. documented in this encounter Plan [...] 650 mg 650 mg, oral, Once, On Sun08/22/19 at 0915, For 1 dose, Please give 30 minutes prior to infusion for infusion reaction prophylaxis.Indications:Design Verification Engineer hn's disease of large intestine without complication (CMS/HCC) (HCC) Given 08/22/2019 8:45 AM CDT 650 mg diphenhydrAMINE (BENADRYL) tab/cap 25 mg 25 mg, oral, Once, On Sun08/22/19 at 0915, For 1 dose, Please give 30 minutes prior to infusion for infusion reaction prophylaxis.Indications:Design Verification Engineer hn's disease of large intestine without complication (CMS/HCC) (HCC) Given 08/22/2019 8:45 AM CDT 25 mg inFLIXimab (REMICADE) 750 mg in sodium chloride 0.9% 250 mL IVPB 750 mg, intravenous, Administer over 2 Hours, Once, On Sun08/22/19 at 0915, For 1 dose, Infuse with [...] intestine without complication (CMS/HCC) (HCC) New Bag 08/22/2019 9:13 AM CDT 750 mg sodium chloride 0.9% flush 10 mL 10 mL, intravenous, As needed, line care, Starting on Sun08/22/19 at 0841, Flush pre and post IV catheter use.Indications:Crohn's disease of large intestine without complication (CMS/HCC) (HCC) Given by Other 08/22/2019 11:18 AM CDT 10 mL sodium chloride 0.9% infusion 30 mL/hr, intravenous, Continuous, Starting on Sun08/22/19 at 0915Indications:Crohn's disease of large intestine without complication (CMS/HCC) (HCC) New Bag 08/22/2019 9:07 AM CDT 30 mL/hr 30 mL/hr documented in this encounter Care Teams Wireless Retail Manager Relationship Specialty Start Date End Date Timo German MD [address] [place] [address] PCP - General 04/16/17 06/17/20 documented as of this encounter
--- OUTSIDE RECORDS SUMMARY | 2024-06-10 07:05 | XMS_ITS | Encounter Summary ---
Author Organization [facility] Healthcare Address [address] [place] [address] Care Team Providers Care Manager Urgent Care Name Role Phone Timo German MD Primary Care Provider [phone] Reason for Visit * Reason Comments OP Infusion * Episode Based Medications (Routine) - Closed Specialty Diagnoses / Procedures Referred By Contac t Referred To Contact Diagnoses Crohn's disease of large intestine without complication (CMS/HCC) (HCC) Procedures [place] INFLIXIMAB NOT BIOSIMIL 10MG Myles Mahajan, DO [address] [place] [address] Phone: tel: fax: [facility] [address] [place] [phone] Phone: tel: fax: Referral ID Status Reason Start Date Expiration Date Visits Re quested Visits Authorized [id number] Closed 10/31/2018 11/01/2019 1 1 Encounter Details Date Type Department Care Team (Late st Contact Info) Description 07/25/2019 8:30 AM INSTRUMENT INSPECTOR Infusion [facility] [address] [place] [phone] Crohn's disease of large intestine without complication (CMS/HCC) (Primary Dx) Social History Tobacco Use Types Packs/Day Years Used Date Smoking Tobacco: Former Smokeless Tobacco: Never Alcohol Use Standard Drinks/Week Comments Yes 1 (1 standard drink = 0.6 oz pur e alcohol) Comments Unknown Sex and Gender Information Value Date Recorded Sex Assigned at Not on file 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:53 AM INSTRUMENT INSPECTOR Gender Identity Not on file Sexual Orientation Not on file documented as of this encounter Last Filed Vital Signs Vital Sign Reading Time Taken Comments Blood Pressure 116/74 07/25/2019 8:40 AM INSTRUMENT INSPECTOR Pulse 104 07/25/2019 8:40 AM INSTRUMENT INSPECTOR Temperature 36.3 ??C (97.3 ??F) 07/25/2019 8:40 AM CS T Respiratory Rate 18 07/25/2019 8:40 AM INSTRUMENT INSPECTOR Oxygen Saturation - - Inhaled Oxygen Concentration - - Weight 74.3 kg (163 lb 11.2 oz) 07/25/2019 8:40 AM INSTRUMENT INSPECTOR Height - - Body Mass Index 30.93 02/25/2018 2:40 PM CDT documented in this encounter Progress Notes * Marian Vera [facility] - 07/25/2019 8:30 AM CST Infliximab 10 mg/kg (dose rounded per [facility] P and T Committee policy) RUMENT INSPECTOR documented in this encounter Nursing Notes * María Nicholson RN - 07/25/2019 8:30 AM CST Helga with [facility] Ref #[id number] verified pt is authorized for Remicade today 07/25/2019. RUMENT INSPECTOR * Albania Hsieh RN - 07/25/2019 8:30 AM CST Patient arrives for treatment. Patient has no complaints or concerns. IV started, positive for blood return and flushing well. Premeds given. Remicade titrated per protocol. Patient tolerated well. IV removed and pressure dressing applied. Schedule confirmed. Patient discharged ambulatory. [facility] RUMENT INSPECTOR documented in this encounter Plan of Treatment Not on file documented as of this encounter Visit Diagnoses Diagnosis Crohn's disease of large intestine without complication (CMS/HCC) (HCC)- Primary documented in this encounter Administered Medications Inactive Administered Medications - up to 3 most recent administrations Medication Order MAR Action Action Date Dose Rate Site acetaminophen (TYLENOL) tablet 650 mg 650 mg, oral, Once, On Sun07/25/19 at 0915, For 1 dose, Please give 30 minutes prior to infusion for infusion reaction prophylaxis.Indications:Crohn 's disease of large intestine without complication (CMS/HCC) ([facility]) Given 07/25/2019 8:50 AM INSTRUMENT INSPECTOR 650 mg diphenhydrAMINE (BENADRYL) tab/cap 25 mg 25 mg, oral, Once, On Sun07/25/19 at 0915, For 1 dose, Please give 30 minutes prior to infusion for infusion reaction prophylaxis.Indications:Crohn 's disease of large intestine without complication (CMS/HCC) ([facility]) Given 07/25/2019 8:50 AM INSTRUMENT INSPECTOR 25 mg inFLIXimab (REMICADE) 750 mg in sodium chloride 0.9% 250 mL IVPB 750 mg, intravenous, Administer over 2 Hours, Once, On Sun07/25/19 at 0915, For 1 dose, Infuse with filter tubing, [...] disease of large intestine without complication (CMS/HCC) ([facility]) New Bag 07/25/2019 9:04 AM INSTRUMENT INSPECTOR 750 mg sodium chloride 0.9% flush 10 mL 10 mL, intravenous, As needed, line care, Starting on Sun07/25/19 at 0835, Flush pre and post IV catheter use.Indications:Crohn's disease of large intestine without complication (CMS/HCC) (HCC) Given 07/25/2019 11:10 AM INSTRUMENT INSPECTOR 10 mL sodium chloride 0.9% infusion 30 mL/hr, intravenous, Continuous, Starting on Sun07/25/19 at 0915Indications:Crohn's disease of large intestine without complication (CMS/HCC) (HCC) New Bag 07/25/2019 8:50 AM INSTRUMENT INSPECTOR 30 mL/hr 30 mL/hr documented in this encounter Care Teams Manager Urgent Care Relationship Specialty Start Date End Date Timo German MD [address] [place] [address] PCP - General 04/16/17 06/17/20 documented as of this encounter
--- OUTSIDE RECORDS SUMMARY | 2024-06-10 07:06 | XMS_ITS | Encounter Summary ---
Author Organization [facility] Healthcare Address [address] [place] [address] Care Team Providers Care Limo Driver Name Role Phone Timo German MD Primary Care Provider [phone] Reason for Visit * Reason Comments OP Infusion * Episode Based Medications (Routine) - Closed Specialty Diagnoses / Procedures Referred By Contac t Referred To Contact Diagnoses Crohn's disease of large intestine without complication (CMS/HCC) (HCC) Procedures [place] INFLIXIMAB NOT BIOSIMIL 10MG Myles Mahajan, DO [address] [place] [address] Phone: tel: fax: [facility] [address] [place] [phone] Phone: tel: fax: Referral ID Status Reason Start Date Expiration Date Visits Re quested Visits Authorized [id number] Closed 10/31/2018 11/01/2019 1 1 Encounter Details Date Type Department Care Team (Late st Contact Info) Description 12/05/2018 12:30 PM CDT Infusion 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 Gender Identity Not on file Sexual Orientation Not on file documented as of this encounter Last Filed Vital Signs Vital Sign Reading Time Taken Comments Blood Pressure 120/73 12/05/2018 12:59 PM CDT Pulse 79 12/05/2018 12:59 PM CDT Temperature 36.5 ??C (97.7 ??F) 12/05/2018 1 2:59 PM CDT Respiratory Rate 16 12/05/2018 12:5 9 PM CDT Oxygen Saturation - - Inhaled Oxygen Concentration - - Weight 74.7 kg (164 lb 11.2 oz) 019 12:30 PM CDT Height - - Body Mass Index 31.12 02/25/2018 2:40 PM CDT documented in this encounter Nursing Notes * Kourtney Dooley RN - 12/05/2018 12:30 PM CDT Arrives for remicade, reports feeling well. Denies fever or s/s of infection. Premeds given. PIV started on 2nd attempt. Tolerated infusion well. Pt had some nausea toward end of infusion but states it is not from the remicade and she has had some issues recently, she plans on following up with [facility] for this. Iv removed, pressure dressing to site. She was informed that she needs new TB test by 01/09. Informed we could draw her blood next infusion in December if she ask Dr. Mahajan to enter order into [employer]. She states she will call him and ask him to do that. Lab appt added to her December infusion appt. Kourtney Dooley RN documented in this encounter Plan [...] mg 650 mg, oral, Once, On Hollie 12/05/18 at 1315, For 1 dose, Please give 30 minutes prior to infusion for infusion reaction prophylaxis.Indications:Crohn 's disease of large intestine without complication (CMS/HCC) (HCC) Given 12/05/2018 12:49 PM CDT 650 mg diphenhydrAMINE (BENADRYL) tab/cap 25 mg 25 mg, oral, Once, On Hollie 12/05/18 at 1315, For 1 dose, Please give 30 minutes prior to infusion for infusion reaction prophylaxis.Indications:Crohn 's disease of large intestine without complication (CMS/HCC) (HCC) Given 12/05/2018 12:49 PM CDT 25 mg inFLIXimab (REMICADE) 750 mg in sodium chloride 0.9% 250 mL IVPB 750 mg (rounded from 747 mg = 10 mg/kg ? 74.7 kg), intravenous, Administer over 2 Hours, Once, On Hollie 12/05/18 at 1315, For 1 dose, Infuse with filter tubing [...] of large intestine without complication (CMS/HCC) ([facility]) New Bag 12/05/2018 1:20 PM CDT 750 mg sodium chloride 0.9% infusion 30 mL/hr, intravenous, Continuous, Starting on Hollie 12/05/18 at 1315Indications:Crohn's disease of large intestine without complication (CMS/HCC) ([facility]) New Bag 12/05/2018 12:51 PM CDT 30 mL/hr 30 mL/hr documented in this encounter Orders Nursing Count Last Ordered Date First Orde red Date ONCBCN PROVIDER COMMUNICATION 1 9 documented in this encounter Care Teams Limo Driver Relationship Specialty Start Date End Date Timo German MD [address] [place] [address] PCP - General 04/16/17 06/17/20 documented as of this encounter
--- OUTSIDE RECORDS SUMMARY | 2024-06-10 07:06 | XMS_ITS | Encounter Summary ---
Author Organization [facility] Healthcare Address [address] [place] [address] Care Team Providers Care Etl Manager Name Role Phone Timo German MD Primary Care Provider [phone] Reason for Visit * Reason Comments OP Infusion * Episode Based Medications (Routine) - Closed Specialty Diagnoses / Procedures Referred By Contac t Referred To Contact Diagnoses Crohn's disease of large intestine without complication (CMS/HCC) (HCC) Procedures [place] INFLIXIMAB NOT BIOSIMIL 10MG Myles Mahajan, DO [address] [place] [address] Phone: tel: fax: [facility] [address] [place] [phone] Phone: tel: fax: Referral ID Status Reason Start Date Expiration Date Visits Re quested Visits Authorized [id number] Closed 10/31/2018 11/01/2019 1 1 Encounter Details Date Type Department Care Team (Late st Contact Info) Description 01/01/2019 12:30 PM CDT Infusion [facility] [address] [place] [phone] Crohn's disease of large intestine without complication (CMS/HCC) (Primary Dx) Social History Tobacco Use Types Packs/Day Years Used Date Smoking Tobacco: Former Smokeless Tobacco: Never Alcohol Use Standard Drinks/Week Comments Yes 1 (1 standard drink = 0.6 oz pur e alcohol) Comments Unknown Sex and Gender Information Value Date Recorded Sex Assigned at Not on file 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 Gender Identity Not on file Sexual Orientation Not on file documented as of this encounter Last Filed Vital Signs Vital Sign Reading Time Taken Comments Blood Pressure 116/77 01/01/2019 12:39 PM CDT Pulse 75 01/01/2019 12:39 PM CDT Temperature 36.4 ??C (97.5 ??F) 01/01/2019 12:39 PM C DT Respiratory Rate 18 01/01/2019 12:39 PM CDT Oxygen Saturation - - Inhaled Oxygen Concentration - - Weight 74 kg (163 lb 1.6 oz) 01/01/2019 12:39 PM CDT Height - - Body Mass Index 30.82 02/25/2018 2:40 PM CDT documented in this encounter Progress Notes * Devorah Aviles RPh - 01/01/2019 12:30 PM CDT Changed dose to 750 mg (dose basis = 10 mg/kg) - Rounded per [facility] Policy. documented in this encounter Nursing Notes * Jason Watt RN - 01/01/2019 12:30 PM CDT Pt arrives for remicade infusion, denies recent infx, or s/s of infx. New TB test was drawn today. VSS. PIV started with good blood return noted. Premedications administered. Infusion started and titrated per orders. Tolerated infusion well, no s/s of reaction noted. Next appt scheduled. PIV discontinued and pressure dressing applied. Pt ambulatory at discharge. documented in this encounter Plan of Treatment Not on file documented as of this encounter Procedures Procedure Name Priority Date/Time Associated Diagnosis Comments TB TEST, QUANTIFERON GOLD Routine 01/01/2019 12:05 PM CDT documented in this encounter Results * TB test, quantiferon gold (01/01/2019 12:05 PM CDT) Quantiferon TB Gold Negative Negative [facility] Comment: No interferon-gamma response to M. tuberculosis antigens was detected. Infection with M. tuberculosis is unlikely. A single negative result does not exclude infection with M. tuberculosis. In patients at high risk for M.tuberculosis infection, a second test should be considered in accordance with the 2017 ATS/IDSA/CDC Clinical Practice Guidelines for Diagnosis of Tuberculosis in Adults and Children [Luis Ainsohn JETHRO et. al. Clin. Infect. Dis. 2017;64(2):111-115]. The reference range for the 'TB1 Ag minus Nil Result' and 'TB2 Ag minus Nil Result' is an Interferon-gamma level <0.35 IU/mL. TB-Nil 0.01 IUnits/mL [facility] TB2-Nil 0.00 IUnits/mL [facility] Mitogen-Nil 9.31 IUnits/mL [facility] NIL 0.01 IUnits/mL [facility] Comment: Test Performed by: [facility] - [address] [address] Blood specimen (specimen) 01/01/2019 12:05 PM CDT 01/01/2019 12:05 PM CDT us Myles Mahajan DO LAB BLOOD ORDERABLES Final Res ult [facility] [address] Department [place] [address] documented in this encounter Visit Diagnoses Diagnosis Crohn's disease of large intestine without complication (CMS/HCC) (HCC)- Primary documented in this encounter Administered Medications Inactive Administered Medications - up to 3 most recent administrations Medication Order MAR Action Action Date Dose Rate Site acetaminophen (TYLENOL) tablet 650 mg 650 mg, oral, Once, On Sun01/01/19 at 1315, For 1 dose, Please give 30 minutes prior to infusion for infusion reaction prophylaxis.Indications:Crohn 's disease of large intestine without complication (CMS/HCC) (HCC) Given 01/01/2019 12:45 PM CDT 650 mg diphenhydrAMINE (BENADRYL) tab/cap 25 mg 25 mg, oral, Once, On Sun01/01/19 at 1315, For 1 dose, Please give 30 minutes prior to infusion for infusion reaction prophylaxis.Indications:Crohn 's disease of large intestine without complication (CMS/HCC) (HCC) Given 01/01/2019 12:44 PM CDT 25 mg inFLIXimab (REMICADE) 750 mg in sodium chloride 0.9% 250 mL IVPB 750 mg, intravenous, Administer over 2 Hours, Once, On Sun01/01/19 at 1315, For 1 dose, Infuse with filter tubing, [...] intestine without complication (CMS/HCC) (HCC) New Bag 01/01/2019 1:21 PM CDT 750 mg sodium chloride 0.9% infusion 30 mL/hr, intravenous, Continuous, Starting on Sun01/01/19 at 1315Indications:Crohn's disease of large intestine without complication (CMS/HCC) (HCC) New Bag 01/01/2019 12:55 PM CDT 30 mL/hr 30 mL/hr documented in this encounter Care Teams Etl Manager Relationship Specialty Start Date End Date Timo German MD [address] [place] [address] PCP - General 04/16/17 06/17/20 documented as of this encounter
--- OUTSIDE RECORDS SUMMARY | 2024-06-10 07:06 | XMS_ITS | Encounter Summary ---
Author Organization [facility] Healthcare Address [address] [place] [address] Care Team Providers Care Production Team Leader Name Role Phone Timo German MD Primary Care Provider [phone] Encounter Details Date Type Department Care Team (Late st Contact Info) Description 01/01/2019 12:15 PM CDT Lab [facility] [address] [place] [address] Social History Tobacco Use Types Packs/Day Years Used Date Smoking Tobacco: Former Smokeless Tobacco: Never Alcohol Use Standard Drinks/Week Comments Yes 1 (1 standard drink = 0.6 oz pur e alcohol) Comments Unknown Sex and Gender Information Value Date Recorded Sex Assigned at Not on file 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
--- OUTSIDE RECORDS SUMMARY | 2024-06-10 07:07 | XMS_ITS | Encounter Summary ---
Author Organization [facility] Healthcare Address [address] [place] [address] Care Team Providers Care Prosthetic Technician Name Role Phone Timo German MD Primary Care Provider [phone] Reason for Visit * Reason Comments OP Infusion * Episode Based Medications (Routine) - Closed Specialty Diagnoses / Procedures Referred By Contac t Referred To Contact Diagnoses Crohn's disease of large intestine without complication (CMS/HCC) (HCC) Procedures ID INFLIXIMAB NOT BIOSIMIL 10MG Myles Mahajan, DO [address] [place] [address] Phone: tel: fax: [facility] [address] [place] [phone] Phone: tel: fax: Referral ID Status Reason Start Date Expiration Date Visits Re quested Visits Authorized [id number] Closed 09/05/2018 09/05/2019 1 1 Encounter Details Date Type Department Care Team (Late st Contact Info) Description 10/04/2018 8:00 AM CDT Infusion [facility] [address] [place] [phone] Crohn's disease of large intestine without complication (CMS/HCC) (Primary Dx) Social History Tobacco Use Types Packs/Day Years Used Date Smoking Tobacco: Former Smokeless Tobacco: Never Alcohol Use Standard Drinks/Week Comments Yes 1 (1 standard drink = 0.6 oz pur e alcohol) Comments Unknown Sex and Gender Information Value Date Recorded Sex Assigned at Not on file 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 VSS. States she is feeling well w/o complaints/concerns. IV placed, +blood return. Premeds given. Tolerated infusion. IV discontinued. Schedule confirmed. documented in this encounter Plan of Treatment Not on file documented as of this encounter Visit Diagnoses Diagnosis Crohn's disease of large intestine without complication (CMS/HCC) ([facility])- Primary documented in this encounter Administered Medications Inactive Administered Medications - up to 3 most recent administrations Medication Order MAR Action Action Date Dose Rate Site acetaminophen (TYLENOL) tablet 650 mg 650 mg, oral, Once, On Sun10/04/18 at 0845, For 1 doseIndications:Crohn's disease of large intestine without complication (CMS/HCC) ([facility]) Given 10/04/2018 8:15 AM CDT 650 mg diphenhydrAMINE (BENADRYL) tab/cap 25 mg 25 mg, oral, Once, On Sun10/04/18 at 0845, For 1 doseIndications:Crohn's disease of large intestine without complication (CMS/HCC) ([facility]) Given 10/04/2018 8:15 AM CDT 25 mg inFLIXimab (REMICADE) 750 mg in sodium chloride 0.9% 250 mL IVPB 750 mg (rounded from 753 mg = 10 mg/kg ? 75.3 kg), intravenous, Administer over 2 Hours, Once, On Sun10/04/18 at 0845, For 1 dose, Infuse with filter tubing Maintenance Dose: Administer every 8 weeks starting on week 14. lnititate therapy at 10mI/hour x 15 minutes then Increase to 20ml/hour x 15 minutes then Increase to 40ml/hour x 15 minutes then Increase to 80ml/hour x 15 minutes then Increase to 150ml/hour x 30 minutes then Increase to 250ml/hour x 30 minutes then end therapy. FOR REACTIONS-STOP INFUSION. Use 1.2 micron filter or less, low-sorbingIndications:Crohn' s disease of large intestine without complication (CMS/HCC) (HCC) New Bag 10/04/2018 8:44 AM CDT 750 mg sodium chloride 0.9% infusion 30 mL/hr, intravenous, Continuous, Starting on Sun10/04/18 at 0845Indications:Crohn's disease of large intestine without complication (CMS/HCC) (HCC) New Bag 10/04/2018 8:15 AM CDT 30 mL/hr 30 mL/hr documented in this encounter Care Teams Prosthetic Technician Relationship Specialty Start Date End Date Timo German MD [address] [place] [address] PCP - General 04/16/17 06/17/20 documented as of this encounter
--- OUTSIDE RECORDS SUMMARY | 2024-06-10 07:07 | XMS_ITS | Encounter Summary ---
Author Organization [facility] Healthcare Address [address] [place] [address] Care Team Providers Care Plug Maker Name Role Phone Timo German MD Primary Care Provider [phone] Encounter Details Date Type Department Care Team (Late st Contact Info) Description 11/01/2018 Orders Only [facility] [address] [place] [phone] Myles Mahajan, DO [address] [place] [address] Social History Tobacco Use Types Packs/Day Years Used Date Smoking Tobacco: Former Smokeless Tobacco: Never Alcohol Use Standard Drinks/Week Comments Yes 1 (1 standard drink = 0.6 oz pur e alcohol) Comments Unknown Sex and Gender Information Value Date Recorded Sex Assigned at Not on file 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
--- OUTSIDE RECORDS SUMMARY | 2024-06-10 07:07 | XMS_ITS | Encounter Summary ---
Author Organization [facility] Healthcare Address [address] [place] [address] Care Team Providers Care Wharfmaster Name Role Phone Timo German MD Primary Care Provider [phone] Encounter Details Date Type Department Care Team (Late st Contact Info) Description 09/26/2018 Orders Only 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
--- OUTSIDE RECORDS SUMMARY | 2024-06-10 07:07 | XMS_ITS | Encounter Summary ---
Author Organization [facility] Healthcare Address [address] [place] [address] Care Team Providers Care Peanut Picker Name Role Phone Timo German MD Primary Care Provider [phone] Reason for Visit * Reason Comments OP Infusion * Episode Based Medications (Routine) - Closed Specialty Diagnoses / Procedures Referred By Contac t Referred To Contact Diagnoses Crohn's disease of large intestine without complication (CMS/HCC) (HCC) Procedures DE INFLIXIMAB NOT BIOSIMIL 10MG Myles Mahajan, DO [address] [place] [address] Phone: tel: fax: [facility] [address] [place] [phone] Phone: tel: fax: Referral ID Status Reason Start Date Expiration Date Visits Re quested Visits Authorized [id number] Closed 09/05/2018 09/05/2019 1 1 Encounter Details Date Type Department Care Team (Late st Contact Info) Description 11/01/2018 8:30 AM CDT Infusion 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 Gender Identity Not on file Sexual Orientation Not on file documented as of this encounter Last Filed Vital Signs Vital Sign Reading Time Taken Comments Blood Pressure 115/76 11/01/2018 8:43 AM CDT Pulse 77 11/01/2018 8:43 AM CDT Temperature 36.3 ??C (97.4 ??F) 11/01/2018 8:43 AM CD T Respiratory Rate 16 11/01/2018 8:43 AM CDT Oxygen Saturation - - Inhaled Oxygen Concentration - - Weight 74.9 kg (165 lb 1.6 oz) 11/01/2018 8:43 A M CDT Height - - Body Mass Index 31.2 02/25/2018 2:40 PM CDT documented in this encounter Nursing Notes * Meghan Gray RN - 11/01/2018 8:30 AM CDT Pt here for tx, reports feeling well, no recent infections or fevers. Premeds given. PIV started +blood and flushing well. Pt infusion titrated per orders, tolerated well. Pt next appt given w/ card.PIV removed and pressure dressing applied. Pt left ambulatory. PMJ documented in this encounter Plan of Treatment Not on file documented as of this encounter Visit Diagnoses Diagnosis Crohn's disease of large intestine without complication (CMS/HCC) (HCC)- Primary documented in this encounter Administered Medications Inactive Administered Medications - up to 3 most recent administrations Medication Order MAR Action Action Date Dose Rate Site acetaminophen (TYLENOL) tablet 650 mg 650 mg, oral, Once, On Sun11/01/18 at 0915, For 1 doseIndications:Crohn's disease of large intestine without complication (CMS/HCC) (HCC) Given 11/01/2018 8:49 AM CDT 650 mg diphenhydrAMINE (BENADRYL) tab/cap 25 mg 25 mg, oral, Once, On Sun11/01/18 at 0915, For 1 doseIndications:Crohn's disease of large intestine without complication (CMS/HCC) (HCC) Given 11/01/2018 8:49 AM CDT 25 mg inFLIXimab (REMICADE) 750 mg in sodium chloride 0.9% 250 mL IVPB 750 mg, intravenous, Administer over 2 Hours, Once, On Sun11/01/18 at 0915, For 1 dose, Infuse with filter tubing, Maintenance Dose: Administer every 8 weeks starting on week 14., , lnititate therapy at 10mI/hour x 15 minutes then, Increase to 20ml/hour x 15 minutes then, Increase to 40ml/hour x 15 minutes then, Increase to 80ml/hour x 15 minutes then, Increase to 150ml/hour x 30 minutes then, Increase to 250ml/hour x 30 minutes then end therapy., FOR REACTIONS-STOP INFUSION. Use 1.2 micron filter or less, low-sorbingIndications:Crohn' s disease of large intestine without complication (CMS/HCC) (HCC) New Bag 11/01/2018 9:39 AM CDT 750 mg sodium chloride 0.9% infusion 30 mL/hr, intravenous, Continuous, Starting on Sun11/01/18 at 0915Indications:Crohn's disease of large intestine without complication (CMS/HCC) (HCC) New Bag 11/01/2018 9:39 AM CDT 30 mL/hr 30 mL/hr documented in this encounter Orders Nursing Count Last Ordered Date First Orde red Date HEIGHT AND WEIGHT 1 11/01/2018 MAINTAIN VITAL SIGNS 1 11/01/2018 ONCBCN NURSING COMMUNICATION [id number] 1 11/01 documented in this encounter Care Teams Peanut Picker Relationship Specialty Start Date End Date Timo German MD [facility] [place] [address] PCP - General 04/16/17 06/17/20 documented as of this encounter
--- OUTSIDE RECORDS SUMMARY | 2024-06-10 07:08 | XMS_ITS | Encounter Summary ---
Author Organization [facility] Healthcare Address [address] [place] [address] Care Team Providers Care Manager Drive Name Role Phone Timo German MD Primary Care Provider Reason for Visit * Reason Comments OP Infusion remicade * Episode Based Medications (Routine) - Closed Specialty Diagnoses / Procedures Referred By Contac t Referred To Contact Diagnoses Crohn's disease of large intestine without complication (CMS/HCC) (HCC) Procedures [place] INFLIXIMAB NOT BIOSIMIL 10MG Myles Mahajan, DO [address] [place] [address] Phone: tel: fax: [facility] [address] [place] [phone] Phone: tel: fax: Referral ID Status Reason Start Date Expiration Date Visits Re quested Visits Authorized [id number] Closed 08/22/2017 08/22/2018 1 1 Encounter Details Date Type Department Care Team (Late st Contact Info) Description 06/07/2018 8:30 AM SNOW SHOVELER Infusion [facility] [address] [place] [phone] Crohn's disease of large intestine without complication (CMS/HCC) (Primary Dx) Social History Tobacco Use Types Packs/Day Years Used Date Smoking Tobacco: Former Smokeless Tobacco: Never Alcohol Use Standard Drinks/Week Comments Yes 1 (1 standard drink = 0.6 oz pur e alcohol) Comments Unknown Sex and Gender Information Value Date Recorded Sex Assigned at Not on file 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:53 AM SNOW SHOVELER Gender Identity Not on file Sexual Orientation Not on file documented as of this encounter Last Filed Vital Signs Vital Sign Reading Time Taken Comments Blood Pressure 134/87 06/07/2018 8:48 AM SNOW SHOVELER Pulse 74 06/07/2018 8:48 AM SNOW SHOVELER Temperature 36.6 ??C (97.9 ??F) 06/07/2018 8:48 AM CS T Respiratory Rate 18 06/07/2018 8:48 AM SNOW SHOVELER Oxygen Saturation 100% 06/07/2018 8:48 AM SNOW SHOVELER Inhaled Oxygen Concentration - - Weight 76.8 kg (169 lb 4.8 oz) 06/07/2018 8:33 A M SNOW SHOVELER Height - - Body Mass Index 31.99 02/25/2018 2:40 PM CDT documented in this encounter Nursing Notes * Elizabeth Shelton RN - 06/07/2018 8:30 AM CST Pt here for remicade. VSS. States she is feeling well; no complaints other than some abdominal cramping. Denies recent illnesses/infections. Premeds given. PIV placed, +blood return. Tolerated infusion. IV discontinued. Schedule confirmed. Message sent re: order expires 06/29/18. SHOVELER SHOVELER SHOVELER documented in this encounter Plan of Treatment Not on file documented as of this encounter Visit Diagnoses Diagnosis Crohn's disease of large intestine without complication (CMS/HCC) (HCC)- Primary documented in this encounter Administered Medications Inactive Administered Medications - up to 3 most recent administrations Medication Order MAR Action Action Date Dose Rate Site acetaminophen (TYLENOL) tablet 650 mg 650 mg, oral, Once, On Sun06/07/18 at 0915, For 1 dose, Please give 30 minutes prior to infusion for infusion reaction prophylaxis.Indications:Crohn's disease of large intestine without complication (CMS/HCC) (HCC) Given 06/07/2018 8:47 AM SNOW SHOVELER 650 mg diphenhydrAMINE (BENADRYL) tab/cap 25 mg 25 mg, oral, Once, On Sun06/07/18 at 0915, For 1 dose, Please give 30 minutes prior to infusion for infusion reaction prophylaxis.Indications:Crohn's disease of large intestine without complication (CMS/HCC) (HCC) Given 06/07/2018 8:47 AM SNOW SHOVELER 25 mg inFLIXimab (REMICADE) 750 mg in sodium chloride 0.9% 250 mL IVPB 750 mg, intravenous, Administer over 2 Hours, Once, On Sun06/07/18 at 0915, For 1 dose, Infuse with filter tubing, Maintenance Dose: Administer every 4 weeks , , lnititate therapy at 10mI/hour x 15 minutes then, Increase to 20ml/hour x 15 minutes then, Increase to 40ml/hour x 15 minutes then, Increase to 80ml/hour x 15 minutes then, Increase to 150ml/hour x 30 minutes then, Increase to 250ml/hour x 30 minutes then end therapy., FOR REACTIONS-STOP INFUSION. Use 1.2 micron filter or less, low-sorbingIndications:Crohn's disease of large intestine without complication (CMS/HCC) (HCC) New Bag 06/07/2018 8:58 AM SNOW SHOVELER 750 mg documented in this encounter Care Teams Manager Drive Relationship Specialty Start Date End Date Timo German MD [address] [place] [id number] PCP - General 04/16/17 06/17/20 documented as of this encounter
--- OUTSIDE RECORDS SUMMARY | 2024-06-10 07:08 | XMS_ITS | Encounter Summary ---
Author Organization [facility] Healthcare Address [address] [place] [address] Care Team Providers Care Exhaust Machine Operator Name Role Phone Timo German MD Primary Care Provider [phone] Reason for Visit * Episode Based Medications (Routine) - Closed Specialty Diagnoses / Procedures Referred By Contac t Referred To Contact Diagnoses Crohn's disease of large intestine without complication (CMS/HCC) (HCC) Procedures [place] INFLIXIMAB NOT BIOSIMIL 10MG Myles Mahajan, DO [address] [place] [address] Phone: tel: fax: [facility] [address] [place] [phone] Phone: tel: fax: Referral ID Status Reason Start Date Expiration Date Visits Re quested Visits Authorized [id number] Closed 08/22/2017 08/22/2018 1 1 Encounter Details Date Type Department Care Team (Late st Contact Info) Description 07/05/2018 9:00 AM LOSS PREVENTION SPECIALIST Infusion [facility] [address] [place] [phone] Crohn's disease of large intestine without complication (CMS/HCC) (Primary Dx) Social History Tobacco Use Types Packs/Day Years Used Date Smoking Tobacco: Former Smokeless Tobacco: Never Alcohol Use Standard Drinks/Week Comments Yes 1 (1 standard drink = 0.6 oz pur e alcohol) Comments Unknown Sex and Gender Information Value Date Recorded Sex Assigned at Not on file 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:53 AM LOSS PREVENTION SPECIALIST Gender Identity Not on file Sexual Orientation Not on file documented as of this encounter Last Filed Vital Signs Vital Sign Reading Time Taken Comments Blood Pressure - - Pulse - - Temperature - - Respiratory Rate - - Oxygen Saturation - - Inhaled Oxygen Concentration - - Weight 76.3 kg (168 lb 3.2 oz) 07/05/2018 8:56 A M LOSS PREVENTION SPECIALIST Height - - Body Mass Index 31.78 02/25/2018 2:40 PM CDT documented in this encounter Nursing Notes * Erlinda Newell RN - 07/05/2018 9:00 AM CST Arrival for infusion. States she is feeling well today, and denies any recent infections. PIV started in LFA with + blood return and flushing well. Premed- benadryl given, did not want tylenol today.Remicade titrated per protocol. Tolerated well. PIV removed. Next appointment made. D/C'd ambulatory. Mena Newell RN PREVENTION SPECIALIST documented in this encounter Plan of [...] 25 mg 25 mg, oral, Once, On Sun07/05/18 at 0930, For 1 dose, Please give 30 minutes prior to infusion for infusion reaction prophylaxis.Indications:Crohn's disease of large intestine without complication (CMS/HCC) (HCC) Given 07/05/2018 9:08 AM LOSS PREVENTION SPECIALIST 25 mg inFLIXimab (REMICADE) 800 mg in sodium chloride 0.9% 250 mL IVPB 800 mg, intravenous, Administer over 2 Hours, Once, On Sun07/05/18 at 0930, For 1 dose, Infuse with [...] intestine without complication (CMS/HCC) (HCC) New Bag 07/05/2018 9:24 AM LOSS PREVENTION SPECIALIST 800 mg documented in this encounter Orders Medications Ordered That [place] ht Not Have Been Administered Count Last Ordered Date First Ordered Date acetaminophen (TYLENOL) tablet 650 mg 1 documented in this encounter Care Teams Exhaust Machine Operator Relationship Specialty Start Date End Date Timo German MD [facility] [place] [address] PCP - General 04/16/17 06/17/20 documented as of this encounter
--- OUTSIDE RECORDS SUMMARY | 2024-06-10 07:08 | XMS_ITS | Encounter Summary ---
Author Organization [facility] Healthcare Address [address] [place] [address] Care Team Providers Care Traveling Representative Name Role Phone Timo German MD Primary Care Provider [phone] Reason for Referral * Diagnostic Imaging (Routine) - Closed Specialty Diagnoses / Procedures Referred By Contac t Referred To Contact Diagnoses Left wrist pain Procedures X-ray wrist left 3+ views Sebastián Bertrand MD Phone: tel: fax: [facility] Referral ID Status Reason Start Date Expiration Date Visits Re quested Visits Authorized [id number] Closed 04/18/2018 10/28/2019 1 1 CONTROLS ENGINEER Reason for Visit * Diagnostic Imaging (Routine) - Closed Specialty Diagnoses / Procedures Referred By Contac t Referred To Contact Diagnoses Left wrist pain Procedures X-ray wrist left 3+ views Sebastián Bertrand MD Phone: tel: fax: [facility] Referral ID Status Reason Start Date Expiration Date Visits Re quested Visits Authorized [id number] Closed 04/18/2018 10/28/2019 1 1 Encounter Details Date Type Department Care Team (Late st Contact Info) Description 04/22/2018 8:42 AM PLC CONTROLS ENGINEER - 04/22/2018 11:59 PM PLC CONTROLS ENGINEER Hospital Encounter [facility] Radiology at [facility] [address] [place], [place] [id number] Sebastián Bertrand MD [address] [facility] [address] [place] [address] Left wrist pain Discharge Disposition: Discharge to home or self care Social History Tobacco Use Types Packs/Day Years Used Date Smoking Tobacco: Former Smokeless Tobacco: Never Alcohol Use Standard Drinks/Week Comments Yes 1 (1 standard drink = 0.6 oz pur e alcohol) Comments Unknown Sex and Gender Information Value Date Recorded Sex Assigned at Not on file 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:53 AM PLC CONTROLS ENGINEER Gender Identity Not on file Sexual Orientation Not on file documented as of this encounter Medications at Time of Discharge amitriptyline (ELAVIL) 25 mg tablet Take 1 tablet (25 mg total) by mouth nightly amLODIPine (NORVASC) 5 mg tablet Take 1 tablet (5 mg total) by mouth machine pecan picker before breakfast dicyclomine (BENTYL) 20 mg tablet Take 1 tablet (20 mg total) by mouth every 6 (six) hours hydroCHLOROthiaz kleber (HYDRODIURIL) 25 mg tablet Take 1 tablet (25 mg total) by mouth machine pecan picker before breakfast levothyroxine sodium (TIROSINT) 50 mcg capsule 125 mcg machine pecan picker before breakfast. losartan (COZAAR) 50 mg tablet Take 50 mg by mouth machine pecan picker before breakfast. meloxicam (MOBIC) 7.5 mg tablet Take 1 tablet (7.5 mg total) by mouth 2 (two) times a day. 60 tablet 2 02/25/2018 topiramate (TOPAMAX) 50 mg tablet Take 1 [...] Name Priority Date/Time Associated Diagnosis Comments XR WRIST LEFT 3 OR MORE VIEWS Schedule Routine, Read Routine (OP Routine) 04/22/2018 8:49 AM PLC CONTROLS ENGINEER Left wrist pain documented in this encounter Results * X-ray wrist left 3+ views (04/22/2018 8:49 AM PLC CONTROLS ENGINEER) Anatomical Region Laterality Modality Upper Extremities, Wrist Left Compute d Radiography 04/22/2018 8:53 AM PLC CONTROLS ENGINEER Impressions 04/22/2018 8:53 AM PLC CONTROLS ENGINEER 1. ??Healing, reduced and internally fixated left scaphoid waist fracture. 2. Healing nondisplaced left radial styloid fracture. Electronically signed by: Tae Ocampo M.D. Narrative 04/22/2018 8:53 AM PLC CONTROLS ENGINEER EXAMINATION: 1. ??Left wrist 3+ views HISTORY: ??Left scaphoid fracture FINDINGS: 4 views submitted with comparison 03/11/2018. There is a healing, reduced and internally fixated left scaphoid waist fracture. Nondisplaced left radial styloid fracture is also healing. No new fractures are identified. 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 Procedure Note Tae Ocampo MD - 04/22/2018 EXAMINATION: 1. Left wrist 3+ views HISTORY: Left scaphoid fracture FINDINGS: 4 views submitted with comparison 03/11/2018. There is a healing, reduced and internally fixated left scaphoid waist fracture. Nondisplaced left radial styloid fracture is also healing. No new fractures are identified. 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 IMPRESSION: 1. Healing, reduced and internally fixated left scaphoid waist fracture. 2. Healing nondisplaced left radial styloid fracture. Electronically signed by: Tae Ocampo M.D. Sebastián Bertrand MD IMG XR PROCEDURES Final R esult documented in this encounter Visit Diagnoses Diagnosis Left wrist pain Pain in joint, forearm documented in this encounter Care Teams Traveling Representative Relationship Specialty Start Date End Date Timo German MD [address] [place] [address] PCP - General 04/16/17 06/17/20 documented as of this encounter
--- OUTSIDE RECORDS SUMMARY | 2024-06-10 07:08 | XMS_ITS | Encounter Summary ---
Author Organization [facility] Address [address] [place] [address] Care Team Providers Care Supervisor Cleaning And Annealing Name Role Phone Timo German MD Primary Care Provider [phone] Reason for Referral * Diagnostic Imaging (Routine) - Closed Specialty Diagnoses / Procedures Referred By Contac t Referred To Contact Radiology Diagnoses Closed nondisplaced fracture of scaphoid of left wrist, unspecified portion of scaphoid, initial encounter Procedures CT wrist left without contrast Sebastián Bertrand MD Phone: tel: fax: [facility] Referral ID Status Reason Start Date Expiration Date Visits Re quested Visits Authorized [id number] Closed 04/22/2018 06/06/2018 1 1 ER IN [facility]ACQUARD LOOM Reason for Visit * Diagnostic Imaging (Routine) - Closed Specialty Diagnoses / Procedures Referred By Contac t Referred To Contact Radiology Diagnoses Closed nondisplaced fracture of scaphoid of left wrist, unspecified portion of scaphoid, initial encounter Procedures CT wrist left without contrast Sebastián Bertrand MD Phone: tel: fax: [facility] Referral ID Status Reason Start Date Expiration Date Visits Re quested Visits Authorized [id number] Closed 04/22/2018 06/06/2018 1 1 Encounter Details Date Type Department Care Team (Late st Contact Info) Description 04/29/2018 1:12 PM DRAWER IN [employer] LO[employer] - 04/29/2018 11:59 PM DRAWER IN [employer] Hospital Encounter [facility] Radiology at [facility] [address] [place] [address] Sebastián Bertrand MD [address] [facility] [address] [place] [address] Closed nondisplaced fracture of scaphoid of left wrist, unspecified portion of scaphoid, initial encounter Discharge Disposition: Discharge to home or self care Social History Tobacco Use Types Packs/Day Years Used Date Smoking Tobacco: Former Smokeless Tobacco: Never Alcohol Use Standard Drinks/Week Comments Yes 1 (1 standard drink = 0.6 oz pur e alcohol) Comments Unknown Sex and Gender Information Value Date Recorded Sex Assigned at Not on file 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:53 AM DRAWER IN JACQUARD LOOM Gender Identity Not on file Sexual Orientation Not on file documented as of this encounter Medications at Time of Discharge amitriptyline (ELAVIL) 25 mg tablet Take 1 tablet (25 mg total) by mouth nightly amLODIPine (NORVASC) 5 mg tablet Take 1 tablet (5 mg total) by mouth linux security administrator before breakfast dicyclomine (BENTYL) 20 mg tablet Take 1 tablet (20 mg total) by mouth every 6 (six) hours hydroCHLOROthiaz kleber (HYDRODIURIL) 25 mg tablet Take 1 tablet (25 mg total) by mouth linux security administrator before breakfast levothyroxine sodium (TIROSINT) 50 mcg capsule 125 mcg linux security administrator before breakfast. losartan (COZAAR) 50 mg tablet Take 50 mg by mouth linux security administrator before breakfast. meloxicam (MOBIC) 7.5 mg tablet [...] Procedure Name Priority Date/Time Associated Diagnosis Comments CT WRIST LEFT WO CONTRAST Schedule Routine, Read Routine (OP Routine) 04/29/2018 1:45 PM DRAWER IN [place] [employer]OM Closed nondisplaced fracture of scaphoid of left wrist, unspecified portion of scaphoid, initial encounter documented in this encounter Results * CT wrist left without contrast (04/29/2018 1:45 PM DRAWER IN [place] [employer]) Anatomical Region Laterality Modality Upper Extremities Left Computed Tomog janee 04/29/2018 2:53 PM DRAWER IN [place] [employer] Impressions 04/29/2018 2:53 PM DRAWER IN [facility]QUARD LOOM 1. ??Healing, reduced and internally fixated left scaphoid waist fracture with osseous bridging of the proximal 60% of the ulnar and central aspect of the scaphoid waist with lack of osseous bridging and neocortex formation along the ulnar 40% 2. ??Healed, nondisplaced left radial styloid fracture Electronically signed by: Miguel Braswell MD, PHD Narrative 04/29/2018 2:53 PM DRAWER IN [facility] [employer] EXAMINATION: CT left wrist without contrast HISTORY: ??Left scaphoid fracture FINDINGS: CT images of the left wrist were obtained without intravenous contrast. ??Coronal and sagittal reconstructions were performed. ??Radiographs from 04/22/2018 and 02/25/2018 were reviewed. There is approximately 60% osseous bridging along the radial and central aspect of the reduced and internally fixated left scaphoid waist fracture with neocortex formation and lack of osseous bridging along the ulnar 40%. ??There is no evidence of motion. ??There is decreased soft tissue swelling. ??Disuse osteoporosis is present. ??The nondisplaced radiostyloid fracture appears healed. ??No acute fractures are noted. Procedure Note Miguel Braswell MD PhD - 04/29/2018 EXAMINATION: CT left wrist without contrast HISTORY: Left scaphoid fracture FINDINGS: CT images of the left wrist were obtained without intravenous contrast. Coronal and sagittal reconstructions were performed. Radiographs from 04/22/2018 and 02/25/2018 were reviewed. There is approximately 60% osseous bridging along the radial and central aspect of the reduced and internally fixated left scaphoid waist fracture with neocortex formation and lack of osseous bridging along the ulnar 40%. There is no evidence of motion. There is decreased soft tissue swelling. Disuse osteoporosis is present. The nondisplaced radiostyloid fracture appears healed. No acute fractures are noted. IMPRESSION: 1. Healing, reduced and internally fixated left scaphoid waist fracture with osseous bridging of the proximal 60% of the ulnar and central aspect of the scaphoid waist with lack of osseous bridging and neocortex formation along the ulnar 40% 2. Healed, nondisplaced left radial styloid fracture Electronically signed by: Miguel Braswell MD, PHD Sebastián Bertrand MD IMG CT PROCEDURES Final R esult documented in this encounter Visit Diagnoses Diagnosis Closed nondisplaced fracture of scaphoid of left wrist, unspecified portion of scaphoid, initial encounter documented in this encounter Care Teams Supervisor Cleaning And Annealing Relationship Specialty Start Date End Date Timo German MD [facility] [place] [address] PCP - General 04/16/17 06/17/20 documented as of this encounter
--- OUTSIDE RECORDS SUMMARY | 2024-06-10 07:08 | XMS_ITS | Encounter Summary ---
Author Organization [facility] Healthcare Address [address] [place] [address] Care Team Providers Care Traffic Analysis Technician Name Role Phone Timo German MD Primary Care Provider [phone] Reason for Visit * Reason Comments OP Infusion * Episode Based Medications (Routine) - Closed Specialty Diagnoses / Procedures Referred By Contac t Referred To Contact Diagnoses Crohn's disease of large intestine without complication (CMS/HCC) (HCC) Procedures [place] INFLIXIMAB NOT BIOSIMIL 10MG Myles Mahajan, DO [address] [place] [address] Phone: tel: fax: [facility] [address] [place] [phone] Phone: tel: fax: Referral ID Status Reason Start Date Expiration Date Visits Re quested Visits Authorized [id number] Closed 09/05/2018 09/05/2019 1 1 Encounter Details Date Type Department Care Team (Late st Contact Info) Description 09/06/2018 8:30 AM CDT Infusion [facility] [address] [place] [phone] Crohn's disease of large intestine without complication (CMS/HCC) (Primary Dx) Social History Tobacco Use Types Packs/Day Years Used Date Smoking Tobacco: Former Smokeless Tobacco: Never Alcohol Use Standard Drinks/Week Comments Yes 1 (1 standard drink = 0.6 oz pur e alcohol) Comments Unknown Sex and Gender Information Value Date Recorded Sex Assigned at Not on file 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:53 AM JAVA PORTAL DEVELOPER Gender Identity Not on file Sexual Orientation Not on file documented as of this encounter Last Filed Vital Signs Vital Sign Reading Time Taken Comments Blood Pressure 116/72 09/06/2018 8:45 AM CDT Pulse 77 09/06/2018 8:45 AM CDT Temperature 36.7 ??C (98 ??F) 09/06/2018 8:45 AM CDT Respiratory Rate 16 09/06/2018 8:45 AM CDT Oxygen Saturation - - Inhaled Oxygen Concentration - - Weight 75.3 kg (166 lb) 09/06/2018 8:45 AM CDT Height - - Body Mass Index 31.37 02/25/2018 2:40 PM CDT documented in this encounter Nursing Notes * Pauline Almanzar RN - 09/06/2018 8:30 AM CDT Pt arrived for remicade. Reports abd cramping rated at 4. PIV started. Benadryl premed given. Titrated per orders, tolerated well. Next appt made. PIV removed. Ambulatory at d/c. documented in this encounter [...] 25 mg 25 mg, oral, Once, On Sun09/06/18 at 0915, For 1 doseIndications:Crohn's disease of large intestine without complication (CMS/HCC) (HCC) Given 09/06/2018 8:40 AM CDT 25 mg inFLIXimab (REMICADE) 750 mg in sodium chloride 0.9% 250 mL IVPB 750 mg, intravenous, Administer over 2 Hours, Once, On Sun09/06/18 at 0915, For 1 dose, Infuse with [...] intestine without complication (CMS/HCC) (HCC) New Bag 09/06/2018 9:07 AM CDT 750 mg sodium chloride 0.9% infusion 30 mL/hr, intravenous, Continuous, Starting on Sun09/06/18 at 0915Indications:Crohn's disease of large intestine without complication (CMS/HCC) (HCC) New Bag 09/06/2018 9:00 AM CDT 30 mL/hr 30 mL/hr documented in this encounter Orders Nursing Count Last Ordered Date First Orde red Date HEIGHT AND WEIGHT 09/06/2018 MAINTAIN VITAL SIGNS 1 09/06/2018 ONCBCN PROVIDER COMMUNICATION 1 9 documented in this encounter Care Teams Traffic Analysis Technician Relationship Specialty Start Date End Date Timo German MD [address] [place] [address] PCP - General 04/16/17 06/17/20 documented as of this encounter
--- OUTSIDE RECORDS SUMMARY | 2024-06-10 07:08 | XMS_ITS | Encounter Summary ---
Author Organization [facility] Healthcare Address [address] [place] [address] Care Team Providers Care Solar Development Engineer Name Role Phone Timo German MD Primary Care Provider [phone] Encounter Details Date Type Department Care Team (Late st Contact Info) Description 07/04/2018 Orders Only [facility] [place] [phone] Nelly Watt, [facility] Social History Tobacco Use Types Packs/Day Years Used Date Smoking Tobacco: Former Smokeless Tobacco: Never Alcohol Use Standard Drinks/Week Comments Yes 1 (1 standard drink = 0.6 oz pur e alcohol) Comments Unknown Sex and Gender Information Value Date Recorded Sex Assigned at Not on file 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:53 AM LABEL MAKER Gender Identity Not on file Sexual Orientation Not on file documented as of this encounter Plan of Treatment Not on file documented as of this encounter Visit Diagnoses Not on filedocumented in this encounter Care Teams Solar Development Engineer Relationship Specialty Start Date End Date Timo German MD [facility] [place] [address] PCP - General 04/16/17 06/17/20 documented as of this encounter
--- OUTSIDE RECORDS SUMMARY | 2024-06-10 07:08 | XMS_ITS | Encounter Summary ---
Author Organization [facility] Healthcare Address [address] [place] [address] Care Team Providers Care Behavioral Health Consultant Name Role Phone Timo German MD Primary Care Provider [phone] Reason for Visit * Episode Based Medications (Routine) - Closed Specialty Diagnoses / Procedures Referred By Contac t Referred To Contact Diagnoses Crohn's disease of large intestine without complication (CMS/HCC) (HCC) Procedures [place] INFLIXIMAB NOT BIOSIMIL 10MG Myles Mahajan, DO [address] [place] [address] Phone: tel: fax: [facility] [address] [place] [phone] Phone: tel: fax: Referral ID Status Reason Start Date Expiration Date Visits Re quested Visits Authorized [id number] Closed 08/22/2017 08/22/2018 1 1 Encounter Details Date Type Department Care Team (Late st Contact Info) Description 08/02/2018 9:00 AM CHARTER SCHOOL EXECUTIVE DIRECTOR Infusion [facility] [address] [place] [phone] Crohn's disease of large intestine without complication (CMS/HCC) (Primary Dx) Social History Tobacco Use Types Packs/Day Years Used Date Smoking Tobacco: Former Smokeless Tobacco: Never Alcohol Use Standard Drinks/Week Comments Yes 1 (1 standard drink = 0.6 oz pur e alcohol) Comments Unknown Sex and Gender Information Value Date Recorded Sex Assigned at Not on file 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:53 AM CHARTER SCHOOL EXECUTIVE DIRECTOR Gender Identity Not on file Sexual Orientation Not on file documented as of this encounter Last Filed Vital Signs Vital Sign Reading Time Taken Comments Blood Pressure 118/69 08/02/2018 9:02 AM CHARTER SCHOOL EXECUTIVE DIRECTOR Pulse 86 08/02/2018 9:02 AM CHARTER SCHOOL EXECUTIVE DIRECTOR Temperature 36.4 ??C (97.5 ??F) 08/02/2018 9:02 AM CS T Respiratory Rate - - Oxygen Saturation - - Inhaled Oxygen Concentration - - Weight 77 kg (169 lb 12.8 oz) 08/02/2018 9:02 AM CHARTER SCHOOL EXECUTIVE DIRECTOR Height - - Body Mass Index 32.08 02/25/2018 2:40 PM CDT documented in this encounter Nursing Notes * Karon Cheung RN - 08/02/2018 9:00 AM CST Pt here for remicade, no complaints or concerns, tolerated well, schedule confirmed TER SCHOOL EXECUTIVE DIRECTOR documented in this encounter Plan of Treatment Not on file documented as of this encounter Visit Diagnoses Diagnosis Crohn's disease of large intestine without complication (CMS/HCC) (HCC)- Primary documented in this encounter Administered Medications Inactive Administered Medications - up to 3 most recent administrations Medication Order MAR Action Action Date Dose Rate Site acetaminophen (TYLENOL) tablet 650 mg 650 mg, oral, Once, On Sun08/02/18 at 0945, For 1 dose, Please give 30 minutes prior to infusion for infusion reaction prophylaxis.Indications:Crohn's disease of large intestine without complication (CMS/HCC) (HCC) Given 08/02/2018 9:08 AM CHARTER SCHOOL EXECUTIVE DIRECTOR 650 mg diphenhydrAMINE (BENADRYL) tab/cap 25 mg 25 mg, oral, Once, On Sun08/02/18 at 0945, For 1 dose, Please give 30 minutes prior to infusion for infusion reaction prophylaxis.Indications:Crohn's disease of large intestine without complication (CMS/HCC) (HCC) Given 08/02/2018 9:08 AM CHARTER SCHOOL EXECUTIVE DIRECTOR 25 mg inFLIXimab (REMICADE) 750 mg in sodium chloride 0.9% 250 mL IVPB 750 mg, intravenous, Administer over 2 Hours, Once, On Sun08/02/18 at 0945, For 1 dose, Infuse with filter tubing, [...] intestine without complication (CMS/HCC) (HCC) New Bag 08/02/2018 9:30 AM CHARTER SCHOOL EXECUTIVE DIRECTOR 750 mg documented in this encounter Orders Nursing Count Last Ordered Date First Orde red Date HEIGHT AND WEIGHT 08/02/2018 MAINTAIN VITAL SIGNS 08/02/2018 ONCBCN PROVIDER COMMUNICATION 1 9 documented in this encounter Care Teams Behavioral Health Consultant Relationship Specialty Start Date End Date Timo German MD [address] [place] [address] PCP - General 04/16/17 06/17/20 documented as of this encounter
--- OUTSIDE RECORDS SUMMARY | 2024-06-10 07:08 | XMS_ITS | Encounter Summary ---
Author Organization [facility] Healthcare Address [address] [place] [address] Care Team Providers Care Cut Off Machine Helper Name Role Phone Timo German MD Primary Care Provider [phone] Reason for Visit * Reason Comments OP Infusion * Episode Based Medications (Routine) - Closed Specialty Diagnoses / Procedures Referred By Contac t Referred To Contact Diagnoses Crohn's disease of large intestine without complication (CMS/HCC) (HCC) Procedures IN INFLIXIMAB NOT BIOSIMIL 10MG Myles Mahajan, DO [address] [place] [address] Phone: tel: fax: [facility] [address] [place] [phone] Phone: tel: fax: Referral ID Status Reason Start Date Expiration Date Visits Re quested Visits Authorized [id number] Closed 08/22/2017 08/22/2018 1 1 Encounter Details Date Type Department Care Team (Late st Contact Info) Description 05/07/2018 8:30 AM LIP CUTTER AND SCORER Infusion [facility] [address] [place] [phone] Crohn's disease of large intestine without complication (CMS/HCC) (Primary Dx) Social History Tobacco Use Types Packs/Day Years Used Date Smoking Tobacco: Former Smokeless Tobacco: Never Alcohol Use Standard Drinks/Week Comments Yes 1 (1 standard drink = 0.6 oz pur e alcohol) Comments Unknown Sex and Gender Information Value Date Recorded Sex Assigned at Not on file 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:53 AM LIP CUTTER AND SCORER Gender Identity Not on file Sexual Orientation Not on file documented as of this encounter Last Filed Vital Signs Vital Sign Reading Time Taken Comments Blood Pressure 135/99 05/07/2018 8:33 AM LIP CUTTER AND SCORER Pulse 88 05/07/2018 8:33 AM LIP CUTTER AND SCORER Temperature 36.3 ??C (97.3 ??F) 05/07/2018 8:33 AM CS T Respiratory Rate - - Oxygen Saturation - - Inhaled Oxygen Concentration - - Weight 77.2 kg (170 lb 4.8 oz) 05/07/2018 8:33 A M LIP CUTTER AND SCORER Height - - Body Mass Index 32.18 02/25/2018 2:40 PM CDT documented in this encounter Progress Notes * Marian Vera RPh - 05/07/2018 8:30 AM CST Patient weight 77.2 kg, so Remicade dose 772 mg. Dose rounded per [facility] P and T Committee policy CUTTER AND SCORER documented in this encounter Nursing Notes * Marry Carvajal RN - 05/07/2018 8:30 AM CST Pt here for tx. VSS. States she is feeling well w/ no complaints other than some abd cramping that happens when she is due for her remicade. Denies recent illnesses/infections. Premeds given. IV placed, +blood return. Tolerated infusion. IV discontinued. Schedule confirmed. CUTTER AND SCORER documented in this encounter Plan of Treatment Not on file documented as of this encounter Visit Diagnoses Diagnosis Crohn's disease of large intestine without complication (CMS/HCC) (HCC)- Primary documented in this encounter Administered Medications Inactive Administered Medications - up to 3 most recent administrations Medication Order MAR Action Action Date Dose Rate Site acetaminophen (TYLENOL) tablet 650 mg 650 mg, oral, Once, On Sun05/07/18 at 0915, For 1 dose, Please give 30 minutes prior to infusion for infusion reaction prophylaxis.Indications:Crohn's disease of large intestine without complication (CMS/HCC) (HCC) Given 05/07/2018 8:39 AM LIP CUTTER AND SCORER 650 mg diphenhydrAMINE (BENADRYL) tab/cap 25 mg 25 mg, oral, Once, On Sun05/07/18 at 0915, For 1 dose, Please give 30 minutes prior to infusion for infusion reaction prophylaxis.Indications:Crohn's disease of large intestine without complication (CMS/HCC) (HCC) Given 05/07/2018 8:39 AM LIP CUTTER AND SCORER 25 mg inFLIXimab (REMICADE) 750 mg in sodium chloride 0.9% 250 mL IVPB 750 mg, intravenous, Administer over 2 Hours, Once, On Sun05/07/18 at 0915, For 1 dose, Infuse with [...] intestine without complication (CMS/HCC) (HCC) New Bag 05/07/2018 9:04 AM LIP CUTTER AND SCORER 750 mg documented in this encounter Care Teams Cut Off Machine Helper Relationship Specialty Start Date End Date Timo German MD [address] [place] [address] PCP - General 04/16/17 06/17/20 documented as of this encounter
--- OUTSIDE RECORDS SUMMARY | 2024-06-10 07:08 | XMS_ITS | Encounter Summary ---
Author Organization [facility] Address [address] [place] [address] Phone Care Team Providers Care Access Tech Name Role Phone Timo German MD Primary Care Provider [phone] Reason for Visit * Reason Comments Post-op Fracture Encounter Details Date Type Department Care Team (Late st Contact Info) Description 05/31/2018 9:20 AM ASSOCIATE FINANCIAL ADVISOR Office Visit [facility] Orthopaedic Surgery [address] [facility] 1st Floor [address] [place] [address] Sebastián Bertrand MD [address] [facility] [address] [place] [address] Closed displaced fracture of scaphoid of left wrist, unspecified portion of scaphoid, initial encounter (Primary Dx) Social History Tobacco Use Types Packs/Day Years Used Date Smoking Tobacco: Former Smokeless Tobacco: Never Alcohol Use Standard Drinks/Week Comments Yes 1 (1 standard drink = 0.6 oz pur e alcohol) Comments Unknown Sex and Gender Information Value Date Recorded Sex Assigned at Not on file 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:53 AM ASSOCIATE FINANCIAL ADVISOR Gender Identity Not on file Sexual Orientation Not on file documented as of this encounter Progress Notes * Sebastián Bertrand MD - 05/31/2018 9:20 AM CST RETURN PATIENT VISIT CHIEF COMPLAINT: Left scaphoid fracture INTERIM HISTORY The patient returns for follow-up regarding her left scaphoid fracture. She is status post open reduction internal fixation left scaphoid on February 26, 2018. She is recovering as expected. CT scanobtained April 29, 2018 demonstrated interval healing and maintained reduction. She has since completed a course of physical therapy and denies any numbness, tingling, weakness, or stiffness of her thumb or wrist. PHYSICAL EXAMINATION GENERAL: This is a well- developed, well nourished age appropriate patient in no acute distress. The patient is alert and oriented x3. Pleasant and cooperative. PSYCHIATRIC: Mood is euthymic. Affect appears appropriate. EYES: Anicteric sclera. Extraocular movements appear intact. EAR, NOSE, THROAT: Hearing is intact to the spoken word. Nares are patent with no drainage. RESPIRATORY: There is equal chest rise on inspection. Breathing is non-labored with no audible wheezing. CARDIOVASCULAR: Radial pulses are 2+ and symmetrical. There is no upper extremity lymphedema. SKIN: No obvious skin lesions or rashes are noted. Skin is warm to touch. NEUROLOGIC: No ataxia. UPPER EXTREMITIES: On the left side, elbow, forearm, wrist and hand motion are full. DPC is 0 for all digits. Finger extension is full. Swelling is none. There is a well-healed incision over the volar aspect of the scaphoid. No tenderness to palpation over anatomic snuffbox. Median, radial, and ulnar nerves are intact to motor and sensory function, with any exceptions noted below. 2+ radial pulse and brisk capillary refill. There is no atrophy and strength is satisfactory. REVIEW OF X-RAYS/STUDIES CT scan of the wrist obtained April 29, 2018 and reviewed by me demonstrates cortical bridging consistent with bony healing. There is maintained reduction and headless screw in place without evidence of loosening. IMPRESSION/DIAGNOSIS/ PLAN 58-year-old female now approximately 3 months status post open reduction internal fixation left scaphoid fracture. She has recovered completely. She may participate in her activities without restrictions. We will plan to see her back on an as-needed basis. All of her questions were answered. She isunderstanding and in agreement with this plan. Sebastián Bertrand M.D. Undertaker Helper Hand and Upper Extremity [facility] Dr. Bertrand is dictating using speech recognition software. Cnc Machine Setter variances may occur. CIATE FINANCIAL ADVISOR documented in this encounter Plan of Treatment Not on file documented as of this encounter Visit Diagnoses Diagnosis Closed displaced fracture of scaphoid of left wrist, unspecified portion of scaphoid, initial encounter- Primary documented in this encounter Care Teams Access Tech Relationship Specialty Start Date End Date Timo German MD [address] [place] [address] PCP - General 04/16/17 06/17/20 documented as of this encounter
--- OUTSIDE RECORDS SUMMARY | 2024-06-10 07:09 | XMS_ITS | Encounter Summary ---
Author Organization [facility] Healthcare Address [address] [place] [address] Care Team Providers Care Financial Assistant Name Role Phone Timo German MD Primary Care Provider [phone] Reason for Visit * Reason Comments OP Infusion Remicade * Episode Based Medications (Routine) - Closed Specialty Diagnoses / Procedures Referred By Contac t Referred To Contact Diagnoses Crohn's disease of large intestine without complication (CMS/HCC) (HCC) Procedures MI INFLIXIMAB NOT BIOSIMIL 10MG Myles Mahajan, DO [address] [place] [address] Phone: tel: fax: [facility] [address] [place] [phone] Phone: tel: fax: Referral ID Status Reason Start Date Expiration Date Visits Re quested Visits Authorized [id number] Closed 08/22/2017 08/22/2018 1 1 Encounter Details Date Type Department Care Team (Late st Contact Info) Description 12/07/2017 11:00 AM CDT Infusion [facility] [address] [place] [phone] Crohn's disease of large intestine without complication (CMS/HCC) (Primary Dx) Social History Tobacco Use Types Packs/Day Years Used Date Smoking Tobacco: Never Assessed Comments Unknown Sex and Gender Information Value Date Recorded Sex Assigned at Not on file 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:53 AM ICT CUSTOMER SUPPORT OFFICER Gender Identity Not on file Sexual Orientation Not on file documented as of this encounter Last Filed Vital Signs Vital Sign Reading Time Taken Comments Blood Pressure 118/76 12/07/2017 11:05 AM CDT Pulse 74 12/07/2017 11:05 AM CDT Temperature 36.4 ??C (97.6 ??F) 12/07/2017 11:05 AM C DT Respiratory Rate - - Oxygen Saturation - - Inhaled Oxygen Concentration - - Weight 74.9 kg (165 lb 1.6 oz) 12/07/2017 11:05 AM CDT Height - - Body Mass Index 30.2 04/23/2017 2:34 PM ICT CUSTOMER SUPPORT OFFICER documented in this encounter Nursing Notes * [place]ia Hsieh RN - 12/07/2017 11:00 AM CDT Patient arrives for treatment. Patient complains of 5/10 abdominal pain. IV started, positive for blood return and flushing well. Premeds given. remicade titrated per protocol. Patient tolerated well. IV removed and pressure dressing applied. Schedule confirmed. Patient discharged ambulatory. [facility] documented in this encounter Plan of Treatment Not on file documented as of this encounter Visit Diagnoses Diagnosis Crohn's disease of large intestine without complication (CMS/HCC) (HCC)- Primary documented in this encounter Administered Medications Inactive Administered Medications - up to 3 most recent administrations Medication Order MAR Action Action Date Dose Rate Site acetaminophen (TYLENOL) tablet 650 mg 650 mg, oral, Once, On Sun12/07/17 at 1145, For 1 dose, Please give 30 minutes prior to infusion for infusion reaction prophylaxis.Indications:Croh n's disease of large intestine without complication (CMS/HCC) (HCC) Given 12/07/2017 11:13 AM CDT 650 mg diphenhydrAMINE (BENADRYL) tab/cap 25 mg 25 mg, oral, Once, On Sun12/07/17 at 1145, For 1 dose, Please give 30 minutes prior to infusion for infusion reaction prophylaxis.Indications:Croh n's disease of large intestine without complication (CMS/HCC) (HCC) Given 12/07/2017 11:13 AM CDT 25 mg inFLIXimab (REMICADE) 750 mg in sodium chloride 0.9% 250 mL IVPB 750 mg (rounded from 749 mg = 10 mg/kg ? 74.9 kg), intravenous, at 125 mL/hr, Administer over 2 Hours, Once, On Sun12/07/17 at 1145, For 1 dose, Infuse with filter tubing Maintenance Dose: Administer every 4 weeks lnititate therapy at 10mI/hour x 15 minutes then Increase to 20ml/hour x 15 minutes then Increase to 40ml/hour x 15 minutes then Increase to 80ml/hour x 15 minutes then Increase to 150ml/hour x 30 minutes then Increase to 250ml/hour x 30 minutes then end therapy. FOR REACTIONS-STOP INFUSION. Use 1.2 micron filter or less, low-sorbingIndications:Crohn 's disease of large intestine without complication (CMS/HCC) ([facility]) New Bag 12/07/2017 11:45 AM CDT 750 mg 125 mL/hr sodium chloride 0.9% flush 10 mL 10 mL, intravenous, As needed, line care, Flush pre and post IV catheter use., Starting on Sun12/07/17 at 1108Indications:Crohn's disease of large intestine without complication (CMS/HCC) (HCC) Given 12/07/2017 1:55 PM CDT 10 mL sodium chloride 0.9% infusion 30 mL/hr, intravenous, As needed, As needed as back up fluid for infusions, Starting on Sun12/07/17 at 1108Indications:Crohn's disease of large intestine without complication (CMS/HCC) (HCC) New Bag 12/07/2017 11:13 AM CDT 30 mL/hr 30 mL/hr documented in this encounter Orders Medications Ordered That [place]aushal ht Not Have Been Administered Count Last Ordered Date First Ordered Date sodium chloride 0.9% flush 5 mL 1 8 Nursing Count Last Ordered Date First Orde red Date HEIGHT AND WEIGHT 1 12/07/2017 MAINTAIN VITAL SIGNS 1 12/07/2017 NURSING COMMUNICATION 12/07/2017 documented in this encounter Care Teams Financial Assistant Relationship Specialty Start Date End Date Timo German MD [address] [place] [address] PCP - General 04/16/17 06/17/20 documented as of this encounter
--- OUTSIDE RECORDS SUMMARY | 2024-06-10 07:09 | XMS_ITS | Encounter Summary ---
Author Organization [facility] Healthcare Address [address] [place] [address] Care Team Providers Care Casino Gaming Inspector Name Role Phone Timo German MD Primary Care Provider [phone] Encounter Details Date Type Department Care Team (Late st Contact Info) Description 01/09/2018 12:45 PM CDT Lab [address] [phone] Social History Tobacco Use Types Packs/Day Years Used Date Smoking Tobacco: Never Assessed Comments Unknown Sex and Gender Information Value Date Recorded Sex Assigned at Not on file 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:53 AM LIGHT OUT EXAMINER Gender Identity Not on file Sexual Orientation Not on file documented as of this encounter Plan of Treatment Not on file documented as of this encounter Procedures Procedure Name Priority Date/Time Associated Diagnosis Comments TB TEST, QUANTIFERON GOLD Routine 01/09/2018 11:35 AM CDT documented in this encounter Results * TB test, quantiferon gold (01/09/2018 11:35 AM CDT) Pathologist [facility] Quantiferon TB Gold Negative Negative [facility] Comment: No interferon-gamma response to M. tuberculosis antigens was detected. Infection with M. tuberculosis is unlikely. A single negative result does not exclude infection with M. tuberculosis. In patients at high risk for M.tuberculosis infection, a second test should be considered in accordance with the 2017 ATS/IDSA/CDC Clinical Practice Guidelines for Diagnosis of Tuberculosis in Adults and Children [Luis Ainssusy DM et. al. Clin. Infect. Dis. 2017;64(2):111-115]. TB-Nil 0.03 IUnits/mL [facility] TB2-Nil 0.03 IUnits/mL [facility] Mitogen-Nil >10.00 IUnits/mL [facility] NIL 0.06 IUnits/mL [facility] Comment: Test Performed by: [facility] [address] [place] [address] Blood specimen (specimen) 01/09/2018 11:35 AM CDT 01/09/2018 12:55 PM CDT Narrative [facility] - 01/11/2018 8:15 PM CDT us Myles Mahajan DO LAB BLOOD ORDERABLES Final Res ult [facility] [address] Department [place] [address] documented in this encounter Visit Diagnoses Not on filedocumented in this encounter Care Teams Casino Gaming Inspector Relationship Specialty Start Date End Date Timo German MD [address] [place] [address] PCP - General 04/16/17 06/17/20 documented as of this encounter
--- OUTSIDE RECORDS SUMMARY | 2024-06-10 07:09 | XMS_ITS | Encounter Summary ---
Author Organization [facility] Healthcare Address [address] [place] [address] Care Team Providers Care Ict Analyst Name Role Phone Timo German MD Primary Care Provider [phone] Reason for Visit * Reason Comments OP Infusion remicade * Episode Based Medications (Routine) - Closed Specialty Diagnoses / Procedures Referred By Contac t Referred To Contact Diagnoses Crohn's disease of large intestine without complication (CMS/HCC) (HCC) Procedures CT INFLIXIMAB NOT BIOSIMIL 10MG Myles Mahajan, DO [address] [place] [address] Phone: tel: fax: [facility] [address] [place] [phone] Phone: tel: fax: Referral ID Status Reason Start Date Expiration Date Visits Re quested Visits Authorized [id number] Closed 08/22/2017 08/22/2018 1 1 Encounter Details Date Type Department Care Team (Late st Contact Info) Description 01/04/2018 11:[address] [facility] [address] [place] [phone] Crohn's disease of large intestine without complication (CMS/HCC) (Primary Dx) Social History Tobacco Use Types Packs/Day Years Used Date Smoking Tobacco: Never Assessed Comments Unknown Sex and Gender Information Value Date Recorded Sex Assigned at Not on file 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:53 AM SECRETARY TO THE VICE PRESIDENT Gender Identity Not on file Sexual Orientation Not on file documented as of this encounter Last Filed Vital Signs Vital Sign Reading Time Taken Comments Blood Pressure 144/84 01/04/2018 11:40 AM CDT Pulse 76 01/04/2018 11:40 AM CDT Temperature 37.1 ??C (98.8 ??F) 01/04/2018 1 1:40 AM CDT Respiratory Rate - - Oxygen Saturation - - Inhaled Oxygen Concentration - - Weight 77.5 kg (170 lb 14.4 oz) 018 11:41 AM CDT Height - - Body Mass Index 31.26 04/23/2017 2:34 PM SECRETARY TO THE VICE PRESIDENT documented in this encounter Nursing Notes * Osmar Jacobs, LETICIA - 01/04/2018 11:00 AM CDT Pt arrived to treatment room. Reports no issues/changes. TB but ok to treat today; pt did have tb test done today. Premeds given. PIV started, blood return. Remicade infused per protocol. Tolerated well. PIV removed, dressing applied. Appt confirmed. Discharged ambulatory. [facility] documented in this encounter Plan of Treatment Not on file documented as of this encounter Visit Diagnoses Diagnosis Crohn's disease of large intestine without complication (CMS/HCC) (HCC)- Primary documented in this encounter Administered Medications Inactive Administered Medications - up to 3 most recent administrations Medication Order MAR Action Action Date Dose Rate Site acetaminophen (TYLENOL) tablet 650 mg 650 mg, oral, Once, On Sun01/04/18 at 1200, For 1 dose, Please give 30 minutes prior to infusion for infusion reaction prophylaxis.Indications:Crohn's disease of large intestine without complication (CMS/HCC) (HCC) Given 01/04/2018 11:25 AM CDT 650 mg diphenhydrAMINE (BENADRYL) tab/cap 25 mg 25 mg, oral, Once, On Sun01/04/18 at 1200, For 1 dose, Please give 30 minutes prior to infusion for infusion reaction prophylaxis.Indications:Crohn's disease of large intestine without complication (CMS/HCC) (HCC) Given 01/04/2018 11:25 AM CDT 25 mg inFLIXimab (REMICADE) 750 mg in sodium chloride 0.9% 250 mL IVPB 750 mg (rounded from 749 mg = 10 mg/kg ? 74.9 kg), intravenous, Administer over 2 Hours, Once, On Sun01/04/18 at 1200, For 1 dose, Infuse with filter tubing [...] intestine without complication (CMS/HCC) (HCC) New Bag 01/04/2018 12:20 PM CDT 750 mg documented in this encounter Orders Nursing Count Last Ordered Date First Orde red Date HEIGHT AND WEIGHT 1 01/04/2018 MAINTAIN VITAL SIGNS 1 01/04/2018 NURSING COMMUNICATION 1 01/04/2018 ONCBCN NURSING COMMUNICATION [id number] 01/04 documented in this encounter Care Teams Ict Analyst Relationship Specialty Start Date End Date Timo German MD [address] [place] [address] PCP - General 04/16/17 06/17/20 documented as of this encounter
--- OUTSIDE RECORDS SUMMARY | 2024-06-10 07:09 | XMS_ITS | Encounter Summary ---
Author Organization 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 Name Role Phone Timo German MD Primary Care Provider [phone] Encounter Details Date Type Department Care Team (Late st Contact Info) Description 03/27/2018 12:30 PM CDT Office Visit [facility] Orthopaedic Surgery [address] [facility] 1st Floor [address] [place] [address] Brandi Quintana MD [address] [facility] [address] [place] [address] Status post orthopedic surgery, follow-up exam (Primary Dx) Social History Tobacco Use Types Packs/Day Years Used Date Smoking Tobacco: Former Smokeless Tobacco: Never Alcohol Use Standard Drinks/Week Comments Yes 1 (1 standard drink = 0.6 oz pur e alcohol) Comments Unknown Sex and Gender Information Value Date Recorded Sex Assigned at Not on file 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 POST-OPERATIVE PATIENT VISIT INTERIM HISTORY Date of Surgery: February 26, 2018 Procedure: ORIF left scaphoid Karon Gaviria is here today with a for a cast change. She underwent surgery with Dr. Bertrand on February 26. PHYSICAL EXAMINATION Incision is well healed. There is some slight erythema along the proximal aspect, but no evidence of any dehiscence. Neurovascular intact throughout. REVIEW OF X-RAYS/STUDIES None obtained today. Assessment/Plan IMPRESSION/DIAGNOSIS Status post ORIF left scaphoid here for cast change TREATMENT PLAN Steri-Strips were reapplied to the incision. Patient will be changed into a thumb spica cast per Dr. Bertrand's instructions. Will follow up with Dr. Bertrand as scheduled. FOLLOW-UP As schedule with Dr. Jerzy Quintana MD Transfer Engineer of Orthopedic Surgery Shoulder and Elbow Service [facility] Dr. Brandi Quintana dictating using Fluency Direct. In Home Caregiver variances may occur. * Christophe Nayak ATC - 03/27/2018 12:30 PM CDTAssociated Order(s): ORTHO CASTING/SPLINTING Post-Procedure Diagnose(s): Status post orthopedic surgery, follow-up exam Ortho Casting/Splinting Documentation Date/Time: 03/27/2018 1:40 PM Performed by: CHRISTOPHE NAYAK Authorized by: BRANDI QUINTANA Sensation: Normal Skin Condition: Clean, dry, and intact (Incision examined by provider. Steri- strips removed & reapplied.) [place]/Sutures Removed: No Pin Pulled: No Cast Removed: Yes Cast Applied: Yes Location: Wrist Wrist: L wrist Cast type: Thumb spica cast (IP free) Supplies: Cotton stocking/sleeve, cotton Padding and fiberglass Number of fiberglass rolls used: 2 Capillary Refill: Normal Patient tolerance of procedure: Tolerated well, no immediate complications documented in this encounter Plan of Treatment Not on file documented as of this encounter Procedures Procedure Name Priority Date/Time Associated Diagnosis Comments ORTHO CASTING/SPLINTING Routine 03/27/2018 12:30 PM CDT Status post orthopedic surgery, follow-up exam documented in this encounter Results * Ortho Casting/Splinting Documentation (03/27/2018 12:30 PM CDT) Narrative Christophe Nayak ATC - 03/27/2018 12:30 PM CDT Christophe Nayak ATC ? 03/27/2018 ??1:41 PM Ortho Casting/Splinting Documentation Date/Time: 03/27/2018 1:40 PM Performed by: CHRISTOPHE NAYAK Authorized by: BRANDI QUINTANA Sensation: ??Normal Skin Condition: ??Clean, dry, and intact (Incision examined by provider. Steri-strips removed & reapplied.) [place]/Sutures Removed: No ?? Pin Pulled: No ?? Cast Removed: Yes ?? Cast Applied: Yes ?? Location: ??Wrist Wrist: ??L wrist Cast type: ??Thumb spica cast (IP free) Supplies: ??Cotton stocking/sleeve, cotton Padding and fiberglass Number of fiberglass rolls used: ??2 Capillary Refill: ??Normal Patient tolerance of procedure: ??Tolerated well, no immediate complications us Brandi Quintana MD IN CLINIC/BEDSIDE ORD ERABLES Final Result documented in this encounter Visit Diagnoses Diagnosis Status post orthopedic surgery, follow-up exam- Primary documented in this encounter Care Teams Assembly Machine Tool Setter Relationship Specialty Start Date End Date Timo German MD [address] [place] [address] PCP - General 04/16/17 06/17/20 documented as of this encounter
--- OUTSIDE RECORDS SUMMARY | 2024-06-10 07:09 | XMS_ITS | Encounter Summary ---
Author Organization [facility] Address [address] [place] [address] Care Team Providers Care Block Tester Name Role Phone Timo German MD Primary Care Provider [phone] Reason for Referral * Diagnostic Imaging (Routine) - Closed Specialty Diagnoses / Procedures Referred By Phong luo Referred To Contact Diagnoses Closed nondisplaced fracture of scaphoid of left wrist, unspecified portion of scaphoid, initial encounter Procedures X-ray wrist left 3+ views Sebastián Bertrand MD Phone: tel: fax: [facility] Referral ID Status Reason Start Date Expiration Date Visits Re quested Visits Authorized [id number] Closed 03/07/2018 09/16/2019 1 1 Reason for Visit * Diagnostic Imaging (Routine) - Closed Specialty Diagnoses / Procedures Referred By Phong luo Referred To Contact Diagnoses Closed nondisplaced fracture of scaphoid of left wrist, unspecified portion of scaphoid, initial encounter Procedures X-ray wrist left 3+ views Sebastián Bertrand MD Phone: tel: fax: [facility] Referral ID Status Reason Start Date Expiration Date Visits Re quested Visits Authorized [id number] Closed 03/07/2018 09/16/2019 1 1 Encounter Details Date Type Department Care Team (Late st Contact Info) Description 03/11/2018 8:55 AM CDT - 03/11/2018 11:59 PM CDT Hospital Encounter [facility] Radiology at [facility] [address] [place] [address] Sebastián Bertrand MD [address] [facility] [address] [place] [address] Closed nondisplaced fracture of scaphoid of left [...] on file 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 Gender Identity Not on file Sexual Orientation Not on file documented as of this encounter Medications at Time of Discharge amitriptyline (ELAVIL) 25 mg tablet Take 1 tablet (25 mg total) by mouth nightly amLODIPine (NORVASC) 5 mg tablet Take 1 tablet (5 mg total) by mouth early learning teacher before breakfast dicyclomine (BENTYL) 20 mg tablet Take 1 tablet (20 mg total) by mouth every 6 (six) hours hydroCHLOROthiaz kleber (HYDRODIURIL) 25 mg tablet Take 1 tablet (25 mg total) by mouth early learning teacher before breakfast levothyroxine sodium (TIROSINT) 50 mcg capsule 125 mcg early learning teacher before breakfast. losartan (COZAAR) 50 mg tablet Take 50 mg by mouth early learning teacher before breakfast. meloxicam (MOBIC) 7.5 mg tablet [...] VIEWS Schedule Routine, Read Routine (OP Routine) 03/11/2018 9:01 AM CDT Closed nondisplaced fracture of scaphoid of left wrist, unspecified portion of scaphoid, initial encounter documented in this encounter Results * X-ray wrist left 3+ views (03/11/2018 9:01 AM CDT) Anatomical Region Laterality Modality Upper Extremities, Wrist Left Compute d Radiography 03/11/2018 9:12 AM CDT Impressions 03/11/2018 9:12 AM CDT 1. ??Reduced and internally fixated left scaphoid fracture in near-anatomic alignment. 2. ??Healing nondisplaced fracture of the left radial styloid. Electronically signed by: Ismael Duff M.D. Narrative 03/11/2018 9:12 AM CDT EXAMINATION: Left wrist minimum 3 views HISTORY: Left scaphoid fracture FINDINGS: 4 view examination of the left breast including a scaphoid view is performed and compared to prior study on 02/25/2018. There is interval reduction and internal fixation with an Acutrak screw of a left scaphoid waist fracture in near-anatomic alignment. There is a new band of sclerosis seen along the left distal radius suggesting healing of an occult distal radial styloid fracture. There is mild soft tissue swelling about the wrist site. 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 Procedure Note Ismael Duff MD - 03/11/2018 EXAMINATION: Left wrist minimum 3 views HISTORY: Left scaphoid fracture FINDINGS: 4 view examination of the left breast including a scaphoid view is performed and compared to prior study on 02/25/2018. There is interval reduction and internal fixation with an Acutrak screw of a left scaphoid waist fracture in near-anatomic alignment. There is a new band of sclerosis seen along the left distal radius suggesting healing of an occult distal radial styloid fracture. There is mild soft tissue swelling about the wrist site. 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 IMPRESSION: 1. Reduced and internally fixated left scaphoid fracture in near-anatomic alignment. 2. Healing nondisplaced fracture of the left radial styloid. Electronically signed by: Ismael [place], M.D. Sebastián Bertrand MD IMG XR PROCEDURES Final R esult documented in this encounter Visit Diagnoses Diagnosis Closed nondisplaced fracture of scaphoid of left wrist, unspecified portion of scaphoid, initial encounter documented in this encounter Care Teams Block Tester Relationship Specialty Start Date End Date Timo German MD [address] [place] [address] PCP - General 04/16/17 06/17/20 documented as of this encounter
--- OUTSIDE RECORDS SUMMARY | 2024-06-10 07:09 | XMS_ITS | Encounter Summary ---
Author Organization [facility] Address [address] [place] [address] Care Team Providers Care Precision Machine Operator Name Role Phone Timo German MD Primary Care Provider Encounter Details Date Type Department Care Team (Late st Contact Info) Description 02/26/2018 7:14 AM CDT Anesthesia Event [facility] Surgery at [facility] [address] [place] [address] Kevyn Ramos MD [address] [place] [address] Stanley Merrill CRNA [address] [place] [address] Anesthesia Record Procedure Summary Procedure Name Responsible Anesthesiologist Anesthesia Start Time Anesthesia Stop Time OPEN REDUCTION INTERNAL FIXATION LEFT SCAPHOID FRACTURE - 1 HR (Left: Arm Lower) Kevyn Ramos MD 02/26/18 0714 02/26/18 0825 Events Date Time Event Comment 02/26/2018 0701 0714 An Start 0717 In Room 0718 An Start Data 0723 An Induction The patient was reevaluated immediately before moderate or deep sedation use and before anesthesia induction. 0725 An LMA 0728 HOB turned 90 degrees 0728 Anesthesia Ready 0737 Proc Start 0737 Incision Start 0816 Airway Removed 0817 Proc Fin 0819 an stop data 0819 Out of Room 0824 Handoff to RN I completed my handoff to the receiving nurse during which we: 1. Patient identified 2. Responsible provider identified 3. Pertinent medical history reviewed 4. Procedure type and surgical course discussed 5. Intraoperative anesthetic management and any significant issues discussed 6. Expectations and concerns for postop period discussed 7. Questions solicited from receiving nurse 8. Patient disposition at the time of handoff: No value filed. 0825 An Stop Meds Name Total midazolam PF 2 mg fentaNYL 100 mcg propofol 150 mg dexamethasone 4 mg/ml 4 mg ePHEDrine 10 mg ondansetron PF (ZOFRAN) 2 mg/mL injectio n 4 mg lidocaine 2 % 70 mg ceFAZolin 2,000 mg ketorolac 30 mg Lactated Ringer's (LR) infusion 700 mL * Agents Name O2 N2O Air Sevoflurane Inspired Sevoflurane * Blood No blood administrations on file. Lines, Drains, and Airways Type Details Placement Removal RETIRED Muñoz Burn; Left; Hand; 05/13/24 (Retired LDA, Removed/Completed by [facility] with LDA Utility); 121 (Retired LDA, Removed/Completed by [facility] with LDA Utility) 02/26/18 0643 by 05/13/24 1213 by Discharge Provider, Automatic Peripheral IV Placement Date: 02/26/18; Placement Time: 0637; Catheter Size: 20 G; Orientation: Right; Location: Antecubital; Site Prep: Chlorhexidine; Inserted by: Mena Sibley; Removal Date: 02/26/18; Removal Time: 0858 02/26/18 0637 by Dolores Germain RN 02/26/18 0858 by Priscilla Herrera RN Supraglottic Airway Placement Date: 02/26/18; Placement Time: 0725 (created via procedure documentation); Mask Ventilation: 1; Size: 4; Insertion Attempts: 1; Removal Date: 02/26/18; Removal Time: 0816 02/26/18 0725 by Sole Bernal CRNA 02/26/18 0816 by Sole Bernal CRNA RETIRED Surgical Site 02/26/18; 0753; Le ft; Arm; 05/13/24 (Retired LDA, Removed/Completed by [facility] with LDA Utility); 1213 (Retired LDA, Removed/Completed by [facility] with LDA Utility) 02/26/18 0753 by Chelsie Ashraf RN 05/13/24 1213 by Discharge Provider, Automatic documented in this encounter Social History Tobacco Use Types Packs/Day Years Used Date Smoking Tobacco: Former Smokeless Tobacco: Never Alcohol Use Standard Drinks/Week Comments Yes 1 (1 standard drink = 0.6 oz pur e alcohol) Comments Unknown Sex and Gender Information Value Date Recorded Sex Assigned at Not on file 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 Gender Identity Not on file Sexual Orientation Not on file documented as of this encounter OR Notes * Anesthesia Postprocedure Evaluation - Kevyn Ramos MD - 02/26/2018 8:37 AM CDT Patient: Karon Gaviria Procedure Summary Date: 02/26/18 Room / Location: [facility] OPERATING ROOM 02 / [facility] Operating Room Anesthesia Start: 713 Anesthesia Stop: 824 Procedures: OPEN REDUCTION INTERNAL FIXATION LEFT SCAPHOID FRACTURE - 1 HR (Left Arm Lower) BONE GRAFT - SCAPHOID (Left Arm Lower) Diagnosis: Closed displaced fracture of scaphoid of left wrist, unspecified portion of scaphoid, initial encounter (Closed displaced fracture of scaphoid of left wrist, unspecified portion of scaphoid, initial encounter [S62.002A]) Provider: Sebastián Bertrand MD Responsible Provider: Kevyn Ramos MD Anesthesia Type: general, regional for postop pain per surgeon request ASA Status: 2 Anesthesia Type: general, regional for postop pain per surgeon request Last vitals BP 122/94 Pulse 77 Temp 36.4 ??C (97.5 ??F) (Temporal) Resp 17 SpO2 96% Anesthesia Post Evaluation Patient location during evaluation: PACU Patient participation: complete - patient participated Level of consciousness: fully awake Pain score: 3 Pain management: adequate Airway patency: patent Evidence of recall: no Anesthetic complications: no Cardiovascular status: hemodynamically stable Respiratory status: room air Hydration status: euvolemic Pt is: normothermic Nausea/Vomiting status: none * Anesthesia Procedure Notes - Sole Bernal CRNA - 02/26/2018 7:44 AM CDTAssociated Order(s): ANESTHESIA INTUBATION Airway Patient location: OR Urgency: elective Date/time: 02/26/2018 7:25 AM Indications for airway management: anesthesia Staff: Supervising provider: KEVYN RAMOS Placed by: METAL EXPEDITER: SOLE BERNAL Emergent airway documentation: Risks and benefits discussed: yes Consent obtained: yes Consent given by: patient Airway prep: Preoxygenated: yes Mask difficulty assessment: 1 - vent by mask Spontaneous ventilation during airway: absent Sedation level during airway: GA Final airway details: Final airway type: supraglottic airway Final supraglottic airway: classic SGA size: 4 Number of attempts: 1 Ventilation between attempts: none * Anesthesia Preprocedure Evaluation - Kevyn Ramos MD - 02/25/2018 3:46 PM CDT [facility] Preoperative Evaluation Record Telephone Preoperative Evaluation (CAM-SC) - TELEPHONE ONLY, NO PHYSICAL EXAM Anesthesia Evaluation Karon Gaviria is a 57 y.o. female Procedure(s): OPEN REDUCTION INTERNAL FIXATION LEFT SCAPHOID FRACTURE - 1 HR BONE GRAFT - SCAPHOID HISTORY HPI Karon Gaviria is a 57 y.o. female who is being evaluated prior to undergoing low risk wrist ORIF. Past Medical History Information obtained from: patient. Cardiovascular + Hypertension Hypertension year diagnosed: 2009. Respiratory + Current smoker Endocrine / Other + Thyroid disease - hypothyroidism + Rheumatological disease - Crohn's disease. Functional Capacity Functional capacity: 4-6 METs Review of Systems + dentures/partials + diarrhea (intermittent diarrhea) Vision loss: wears corrective lenses PAT Summary and Plans Cardiac risk classification of planned procedure: low cardiac risk. Anesthesia plan discussed: general anesthesia. Pain management discussed: regional block. Disposition: suitable for outpatient surgery center. Preoperative assessment status: complete. Additional comments: Karon Gaviria is a 57 y.o. female who is being evaluated prior to undergoing alow cardiac risk surgery. Revised Cardiac Risk Index factors are (none) for a total RCRI of 0 out of 6. Functional capacity is 4-6 METs. Obstructive sleep apnea (KELLIE) screening status is pending neck measurement. Blood bank needs for day of procedure: No type and screen needed Pending labs/tests include: none This assessment was performed via telephone. Therefore the physical exam has been deferred to the day of surgery team. The patient was provided with preoperative instructions for their medications. The patient was instructed to shower/bathe the night prior and the morning of the planned procedure using an antibacterial soap. Patient instructions were provided by telephone. Patient verbalized understanding of preoperative plan. Preoperative evaluation performed by Viki Lopez NP on 02/25/18 at 3:56 PM.. Patient Active Problem List Diagnosis ??? Crohn's disease of large intestine without complication (CMS/HCC) ??? Thyroid activity decreased ??? Knee pain ??? Closed displaced fracture of scaphoid bone of left wrist Past Medical History: Diagnosis Date ??? Crohn's disease (CMS/HCC) ??? Migraines ??? Thyroid disease Past Surgical History: Procedure Laterality Date ??? HERNIA REPAIR ??? HYSTERECTOMY OB History No data available Allergies Allergen Reactions ??? Codeine Other (See comments) Reaction: hives, , HOME MEDICATIONS : amitriptyline (ELAVIL) 25 mg tablet amLODIPine (NORVASC) 5 mg tablet dicyclomine (BENTYL) 20 mg tablet hydroCHLOROthiazide (HYDRODIURIL) 25 mg tablet levothyroxine sodium (TIROSINT) 50 mcg capsule losartan (COZAAR) 50 mg tablet meloxicam (MOBIC) 7.5 mg tablet topiramate (TOPAMAX) 50 mg tablet zolpidem (AMBIEN) 5 mg tablet oxyCODONE-acetaminophen (PERCOCET) 5-325 mg per tablet terbinafine (LamiSIL) 250 mg tablet No current facility-administered medications for this encounter. Current Outpatient Prescriptions: ??? amitriptyline (ELAVIL) 25 mg tablet ??? amLODIPine (NORVASC) 5 mg tablet ??? dicyclomine (BENTYL) 20 mg tablet ??? hydroCHLOROthiazide (HYDRODIURIL) 25 mg tablet ??? levothyroxine sodium (TIROSINT) 50 mcg capsule ??? losartan (COZAAR) 50 mg tablet ??? meloxicam (MOBIC) 7.5 mg tablet ??? topiramate (TOPAMAX) 50 mg tablet ??? zolpidem (AMBIEN) 5 mg tablet Social History Smoking Status ??? Former Smoker Smokeless Tobacco ??? Never Used Alcohol Use ??? 0.6 oz/week ??? 1 Cans of beer per week Drug Use No Family History Problem Relation Age of Onset [...] cardiac disorder - (Added by TW Conv) PAT Physical Exam There were no vitals filed for this visit. PT: No results found for requested labs within last 720 hours. INR: No results found for requested labs within last 720 hours. APTT: No results found for requested labs within last 720 hours. Hgb A1C: No results found for requested labs within last 720 hours. CBC RBC: No results found for requested labs within last 720 hours. RDW: No results found for requested labs within last 720 hours. MCHC: No results found for requested labs within last 720 hours. MCH: No results found for requested labs within last 720 hours. MCV: No results found for requested labs within last 720 hours. Hct: No results found for requested labs within last 720 hours. Hgb: No results found for requested labs within last 720 hours. WBC: No results found for requested labs within last 720 hours. MPV: No results found for requested labs within last 720 hours. Platelets: No results found for requested labs within last 720 hours. RDW CV: No results found for requested labs within last 720 hours. RDW Sd: No results found for requested labs within last 720 hours. BMP Glucose: No results found for requested labs within last 720 hours. Calcium: No results found for requested labs within last 720 hours. Sodium: No results found for requested labs within last 720 hours. Potassium: No results found for requested labs within last 720 hours. CO2: No results found for requested labs within last 720 hours. Chloride: No results found for requested labs within last 720 hours. BUN: No results found for requested labs within last 720 hours. Creatinine: No results found for requested labs within last 720 hours. Esha index score: 100 DOS Physical Exam Medical history, medications, and allergies reviewed. Attestation: I endorse the findings of the anesthesia pre-evaluation assessment dated: 02/25/2018. Airway Exam: Mallampati: I Cervical ROM: FROM TM distance: 3 Cardiovascular Exam: Rate: regular Rhythm: regular Pulmonary Exam: LCTA, bilat EENT Exam: trachea midline Dental Exam: Upper dentures Current state: Patient's current state is cooperative and interactive. Anesthesia Plan ASA 2 Planned anesthesia: General and regional for postop pain per surgeon request Team communication plan: LMA Induction: Induction: intravenous. Postoperative Plan: Postoperative administration opioids intended. No postoperative mechanical ventilation intended. Patient's planned disposition post procedure is Outpatient. Informed Consent: Discussed plan with METAL EXPEDITER. Anesthesia plan and risks discussed with patient. Consent and Attending signature: I and/or my designee have discussed the anesthesia plan, benefits, possible alternatives, parental presence at time of induction (if indicated), and clinically relevant risks that may include dental injury, unintentional awareness, and/or other complications. The patient and/or parent/legal guardian understand, and agree to proceed. All questions answered. documented in this encounter Plan of Treatment Not on file documented as of this encounter Procedures Procedure Name Priority Date/Time Associated Diagnosis Comments UT AN PROCEDURE PLACEHOLDER Routine 02/26/2018 7:44 AM CDT Procedure Note - Sole Bernal CRNA - 02/26/2018 7:44 AM CDTThis note is in progress. Airway Patient location: OR Urgency: elective Date/time: 02/26/2018 7:25 AM Indications for airway management: anesthesia Staff: Supervising provider: KEVYN RAMOS Placed by: METAL EXPEDITER: SOLE BERNAL Emergent airway documentation: Risks and benefits discussed: yes Consent obtained: yes Consent given by: patient Airway prep: Preoxygenated: yes Mask difficulty assessment: 1 - vent by mask Spontaneous ventilation during airway: absent Sedation level during airway: GA Final airway details: Final airway type: supraglottic airway Final supraglottic airway: classic SGA size: 4 Number of attempts: 1 Ventilation between attempts: none UT AN ELECTIVE SUPRAGLOTTIC AIRWAY Routine 02/26/2018 7:44 AM CDT Procedure Note - Sole Bernal CRNA - 02/26/2018 7:44 AM CDTThis note is in progress. Airway Patient location: OR Urgency: elective Date/time: 02/26/2018 7:25 AM Indications for airway management: anesthesia Staff: Supervising provider: KEVYN RAMOS Placed by: METAL EXPEDITER: SOLE BERNAL Emergent airway documentation: Risks and benefits discussed: yes Consent obtained: yes Consent given by: patient Airway prep: Preoxygenated: yes Mask difficulty assessment: 1 - vent by mask Spontaneous ventilation during airway: absent Sedation level during airway: GA Final airway details: Final airway type: supraglottic airway Final supraglottic airway: classic SGA size: 4 Number of attempts: 1 Ventilation between attempts: none documented in this encounter Visit Diagnoses Not on filedocumented in this encounter Administered Medications Inactive Administered Medications - up to 3 most recent administrations Medication Order MAR Action Action Date Dose Rate Site ceFAZolin (ANCEF) injection intravenous, As needed, Starting on Sun02/26/18 at 0728, Anesthesia Intra-op Given 02/26/2018 7:28 AM CDT 2,000 mg dexamethasone (DECADRON) injection intravenous, Administer over 1 Minutes, As needed, Starting on Sun02/26/18 at 0740, Anesthesia Intra-op Given 02/26/2018 7:40 AM CDT 4 mg ePHEDrine injection intravenous, As needed, Starting on Sun02/26/18 at 0757, Anesthesia Intra-op Given 02/26/2018 7:57 AM CDT 10 mg fentaNYL (SUBLIMAZE) preservative free injection intravenous, As needed, Starting on Sun02/26/18 at 0714, Anesthesia Intra-op Given 02/26/2018 7:28 AM CDT 50 mcg Given 02/26/2018 7:14 AM CDT 50 mcg ketorolac (TORADOL) injection As needed, Starting on Sun02/26/18 at 0740, Anesthesia Intra-op Given 02/26/2018 7:40 AM CDT 30 mg Lactated Ringer's (LR) infusion 30 mL/hr, intravenous, Continuous, Starting on Sun02/26/18 at 0815, Pre-Op New Bag 02/26/2018 7:00 AM CDT lidocaine (XYLOCAINE) 20 mg/mL (2 %) injection As needed, Starting on Sun02/26/18 at 0723, Anesthesia Intra-op, Indications: Administration of Local AnesthesiaIndications:Administration of Local Anesthesia Given 02/26/2018 7:23 AM CDT 70 mg midazolam (VERSED) preservative free injection intravenous, As needed, Starting on Sun02/26/18 at 0714, Anesthesia Intra-op Given 02/26/2018 7:14 AM CDT 2 mg ondansetron (ZOFRAN) injection intravenous, As needed, nausea, vomiting, Starting on Sun02/26/18 at 0802, Anesthesia Intra-op Given 02/26/2018 8:02 AM CDT 4 mg propofol (DIPRIVAN) IV intravenous, As needed, Starting on Sun02/26/18 at 0723, Anesthesia Intra-op Given 02/26/2018 7:23 AM CDT 150 mg documented in this encounter Orders Procedures Count Last Ordered Date First Orde red Date ANESTHESIA INTUBATION 1 02/26/2018 documented in this encounter Care Teams Precision Machine Operator Relationship Specialty Start Date End Date Timo German MD [facility] [place] [address] PCP - General 04/16/17 06/17/20 documented as of this encounter
--- OUTSIDE RECORDS SUMMARY | 2024-06-10 07:09 | XMS_ITS | Encounter Summary ---
Author Organization [facility] Address [address] [place] [address] Care Team Providers Care Microbiology Teacher Name Role Phone Timo German MD Primary Care Provider [phone] Encounter Details Date Type Department Care Team (Late st Contact Info) Description 02/01/2018 Orders Only [facility] [address] [place] [id number] Myles Mahajan, DO [address] [place] [address] Social History Tobacco Use Types Packs/Day Years Used Date Smoking Tobacco: Never Assessed Comments Unknown Sex and Gender Information Value Date Recorded Sex Assigned at Not on file 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
--- OUTSIDE RECORDS SUMMARY | 2024-06-10 07:09 | XMS_ITS | Encounter Summary ---
Author Organization [facility] Address [address] [place] [address] Care Team Providers Care Leather Fitter Name Role Phone Timo German MD Primary Care Provider [phone] Encounter Details Date Type Department Care Team (Late st Contact Info) Description 09/06/2017 Orders Only 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
--- OUTSIDE RECORDS SUMMARY | 2024-06-10 07:09 | XMS_ITS | Encounter Summary ---
Author Organization [facility] Healthcare Address [address] [place] [address] Care Team Providers Care Mixed Crop Farmer Name Role Phone Timo German MD Primary Care Provider [phone] Reason for Visit * Reason Comments OP Infusion remicade * Episode Based Medications (Routine) - Closed Specialty Diagnoses / Procedures Referred By Contac t Referred To Contact Diagnoses Crohn's disease of large intestine without complication (CMS/HCC) (HCC) Procedures [place] INFLIXIMAB NOT BIOSIMIL 10MG Myles Mahajan, DO [address] [place] [address] Phone: tel: fax: [facility] [address] [place] [phone] Phone: tel: fax: Referral ID Status Reason Start Date Expiration Date Visits Re quested Visits Authorized [id number] Closed 08/22/2017 08/22/2018 1 1 Encounter Details Date Type Department Care Team (Late st Contact Info) Description 03/05/2018 1:00 PM CDT Infusion [facility] [address] [place] [phone] Crohn's disease of large intestine without complication (CMS/HCC) (Primary Dx) Social History Tobacco Use Types Packs/Day Years Used Date Smoking Tobacco: Former Smokeless Tobacco: Never Alcohol Use Standard Drinks/Week Comments Yes 1 (1 standard drink = 0.6 oz pur e alcohol) Comments Unknown Sex and Gender Information Value Date Recorded Sex Assigned at Not on file 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 Gender Identity Not on file Sexual Orientation Not on file documented as of this encounter Last Filed Vital Signs Vital Sign Reading Time Taken Comments Blood Pressure 120/77 03/05/2018 1:20 PM CDT Pulse 66 03/05/2018 1:20 PM CDT Temperature 2.8 ??C (37 ??F) 03/05/2018 1:20 PM CDT Respiratory Rate - - Oxygen Saturation 99% 03/05/2018 1:20 PM CDT Inhaled Oxygen Concentration - - Weight 77.7 kg (171 lb 3.2 oz) 03/05/2018 1:02 P M CDT Height - - Body Mass Index 32.35 02/25/2018 2:40 PM CDT documented in this encounter Nursing Notes * Elizabeth Shelton RN - 03/05/2018 1:00 PM CDT Patient presents for Remicade. Patient complains of 4/10 L arm pain r/t recent fall in shower at home. Arm in cast and had recent surgery. Pt denies fever, chills, flu sx. PIV started, positive for blood return and flushing well. Premeds given. Remicade titrated per protocol. Patient tolerated well. IV removed and pressure dressing applied. Schedule confirmed. Patient discharged ambulatory. documented in this encounter Plan of [...] 650 mg 650 mg, oral, Once, On Sun03/05/18 at 1345, For 1 dose, Please give 30 minutes prior to infusion for infusion reaction prophylaxis.Indications:Crohn 's disease of large intestine without complication (CMS/HCC) (HCC) Given 03/05/2018 1:16 PM CDT 650 mg diphenhydrAMINE (BENADRYL) tab/cap 25 mg 25 mg, oral, Once, On Sun03/05/18 at 1345, For 1 dose, Please give 30 minutes prior to infusion for infusion reaction prophylaxis.Indications:Crohn 's disease of large intestine without complication (CMS/HCC) (HCC) Given 03/05/2018 1:16 PM CDT 25 mg inFLIXimab (REMICADE) 750 mg in sodium chloride 0.9% 250 mL IVPB 750 mg (rounded from 753 mg = 10 mg/kg ? 75.3 kg), intravenous, Administer over 2 Hours, Once, On Sun03/05/18 at 1345, For 1 dose, Infuse with [...] intestine without complication (CMS/HCC) (HCC) New Bag 03/05/2018 1:38 PM CDT 750 mg sodium chloride 0.9% infusion 30 mL/hr, intravenous, As needed, As needed as back up fluid for infusions, Starting on Sun03/05/18 at 1317Indications:Crohn's disease of large intestine without complication (CMS/HCC) (HCC) New Bag 03/05/2018 1:37 PM CDT 30 mL/hr 30 mL/hr documented in this encounter Care Teams Mixed Crop Farmer Relationship Specialty Start Date End Date Timo German MD [facility] [place] [address] PCP - General 04/16/17 06/17/20 documented as of this encounter
--- OUTSIDE RECORDS SUMMARY | 2024-06-10 07:09 | XMS_ITS | Encounter Summary ---
Author Organization [facility] Healthcare Address [address] [place] [address] Care Team Providers Care Vmware Architect Name Role Phone Timo German MD Primary Care Provider [phone] Reason for Visit * Reason Comments OP Infusion Remicade * Episode Based Medications (Routine) - Closed Specialty Diagnoses / Procedures Referred By Contac t Referred To Contact Diagnoses Crohn's disease of large intestine without complication (CMS/HCC) (HCC) Procedures [place] INFLIXIMAB NOT BIOSIMIL 10MG Myles Mahajan, DO [address] [place] [address] Phone: tel: fax: [facility] [address] [place] [phone] Phone: tel: fax: Referral ID Status Reason Start Date Expiration Date Visits Re quested Visits Authorized [id number] Closed 08/22/2017 08/22/2018 1 1 Encounter Details Date Type Department Care Team (Late st Contact Info) Description 11/02/2017 11:30 AM CDT Infusion [facility] [address] [place] [phone] Crohn's disease of large intestine without complication (CMS/HCC) (Primary Dx) Social History Tobacco Use Types Packs/Day Years Used Date Smoking Tobacco: Never Assessed Comments Unknown Sex and Gender Information Value Date Recorded Sex Assigned at Not on file 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 Gender Identity Not on file Sexual Orientation Not on file documented as of this encounter Last Filed Vital Signs Vital Sign Reading Time Taken Comments Blood Pressure 116/69 11/02/2017 11:18 AM CDT Pulse 88 11/02/2017 11:18 AM CDT Temperature 36.8 ??C (98.3 ??F) 11/02/2017 11:18 AM C DT Respiratory Rate - - Oxygen Saturation - - Inhaled Oxygen Concentration - - Weight 77.2 kg (170 lb 4.8 oz) 11/02/2017 11:18 AM CDT Height - - Body Mass Index 31.15 04/23/2017 2:34 PM GUNNER'S MATE G documented in this encounter Progress Notes * Marian Vera RPh - 11/02/2017 11:30 AM CDT Infliximab 10 mg/kg dose rounded to 750 mg per [facility] P and T committee guidelines. Marian Vera RPh documented in this encounter Nursing Notes * Dolores Arellano RN - 11/02/2017 11:30 AM CDT Here for Remicade. Denies any fevers, infections or other issues since last tx. Premedicated, PIV placed w/o prob and Remicade started 35 min later. Titrated per protocal. Next appt confirmed and Pt left ambulatory when complete. documented in this encounter Plan of Treatment Not on file documented as of this encounter Visit Diagnoses Diagnosis Crohn's disease of large intestine without complication (CMS/HCC) (HCC)- Primary documented in this encounter Administered Medications Inactive Administered Medications - up to 3 most recent administrations Medication Order MAR Action Action Date Dose Rate Site acetaminophen (TYLENOL) tablet 650 mg 650 mg, oral, Once, On Sun11/02/17 at 1200, For 1 dose, Please give 30 minutes prior to infusion for infusion reaction prophylaxis.Indications:Croh n's disease of large intestine without complication (CMS/HCC) (HCC) Given 11/02/2017 11:25 AM CDT 650 mg diphenhydrAMINE (BENADRYL) tab/cap 25 mg 25 mg, oral, Once, On Sun11/02/17 at 1200, For 1 dose, Please give 30 minutes prior to infusion for infusion reaction prophylaxis.Indications:Croh n's disease of large intestine without complication (CMS/HCC) (HCC) Given 11/02/2017 11:25 AM CDT 25 mg inFLIXimab (REMICADE) 750 mg in sodium chloride 0.9% 250 mL IVPB 750 mg, intravenous, at 125 mL/hr, Administer over 2 Hours, Once, On Sun11/02/17 at 1200, For 1 dose, Infuse with filter tubing, Maintenance Dose:, , lnititate therapy at 10mI/hour x 15 [...] intestine without complication (CMS/HCC) (HCC) New Bag 11/02/2017 12:01 PM CDT 750 mg 125 mL/hr sodium chloride 0.9% infusion 30 mL/hr, intravenous, As needed, As needed as back up fluid for infusions, Starting on Sun11/02/17 at 1119Indications:Crohn's disease of large intestine without complication (CMS/HCC) ([facility]) New Bag 11/02/2017 11:45 AM CDT 30 mL/hr 30 mL/hr documented in this encounter Care Teams Vmware Architect Relationship Specialty Start Date End Date Timo German MD [facility] [place] [address] PCP - General 04/16/17 06/17/20 documented as of this encounter
--- OUTSIDE RECORDS SUMMARY | 2024-06-10 07:09 | XMS_ITS | Encounter Summary ---
Author Organization [facility] Address [address] [place] [address] Phone Care Team Providers Care Core Measures Abstractor Name Role Phone Timo German MD Primary Care Provider [phone] Reason for Referral * Diagnostic Imaging (Routine) - Closed Specialty Diagnoses / Procedures Referred By Contac t Referred To Contact Diagnoses Closed nondisplaced fracture of scaphoid of left wrist, unspecified portion of scaphoid, initial encounter Procedures X-ray wrist left 3+ views Sebastián Bertrand MD Phone: tel: fax: [facility] Referral ID Status Reason Start Date Expiration Date Visits Re quested Visits Authorized [id number] Closed 03/07/2018 09/16/2019 1 1 Encounter Details Date Type Department Care Team (Late st Contact Info) Description 03/11/2018 9:10 AM CDT Office Visit [facility] [address] [place] [address] Sebastián Bertrand MD 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 She notes that she has minimal pain. She had a little bit of numbness and tingling at the site of distal end of the splint on the thumb but the thumb itself no numbness and tingling. She has been moving her fingers. She has been compliant with nonweightbearing. PHYSICAL EXAMINATION Wounds are clean. Sutures removed. No evidence of infection. No dramatic swelling. She has full range of motion of all of her fingers with slight stiffness at the CMC and IP joint ofthe thumb. Sensation is intact to light touch in the radial ulnar aspect of all digits. She has preserved sensation on the palm and thenar eminence. She has brisk capillary refill REVIEW OF X-RAYS/STUDIES Review of four views of the left wrist show stable alignment of her left scaphoid waist fracture with no significant interval healing though stable alignment of the implant IMPRESSION/DIAGNOSIS/PLAN Karon is doing well status post open reduction internal fixation of her left scaphoid waist fracture. Given the fact that she is healing well with good alignment, we will place her into a thumb spicacast with IP free she will return in 6 weeks with me for repeat clinical evaluation as well as out of cast x-rays of the left wrist. We have also discussed that she is going to go on a float trip soon and that once her wound has completely healed, this would be acceptable. She has been counseled oncontinuing nonweightbearing, but she will come back for a cast change to a waterproof cast as long as her incision is completely healed. Sebastián Bertrand M.D. Collection Team Lead Hand and Upper Extremity [facility] Dr. Bertrand is dictating using speech recognition software. Diamond Sawer variances may occur. * Christophe Nayak ATC - 03/11/2018 9:10 AM CDTAssociated Order(s): ORTHO CASTING/SPLINTING Post-Procedure Diagnose(s): Closed nondisplaced fracture of scaphoid of left wrist, unspecified portion of scaphoid, initial encounter Ortho Casting/Splinting Documentation Date/Time: 03/11/2018 10:51 AM Performed by: CHRISTOPHE ANYAK Authorized by: SEBASTIÁN BERTRAND Sensation: Normal Skin Condition: Clean, dry, and intact (incision examined by provider) Pa/Sutures Removed: No Pin Pulled: No Cast Removed: No Cast Applied: Yes Location: Wrist Wrist: L wrist Cast type: Thumb spica cast (IP free) Supplies: Cotton Padding, fiberglass and cotton stocking/sleeve Number of fiberglass rolls used: 2 Capillary Refill: Normal Patient tolerance of procedure: Tolerated well, no immediate complications documented in this encounter Plan of Treatment Not on file documented as of this encounter Procedures Procedure Name Priority Date/Time Associated Diagnosis Comments ORTHO CASTING/SPLINTING Routine 03/11/2018 9:10 AM CDT Closed nondisplaced fracture of scaphoid of left wrist, unspecified portion of scaphoid, initial encounter documented in this encounter Results * Ortho Casting/Splinting Documentation (03/11/2018 9:10 AM CDT) Narrative Christophe Nayak ATC - 03/11/2018 9:10 AM CDT Christophe Nayak ATC ? 03/11/2018 10:53 AM Ortho Casting/Splinting Documentation Date/Time: 03/11/2018 10:51 AM Performed by: CHRISTOPHE NAYAK Authorized by: SEBASTIÁN BERTRAND Sensation: ??Normal Skin Condition: ??Clean, dry, and intact (incision examined by provider) [place]/Sutures Removed: No ?? Pin Pulled: No ?? Cast Removed: No ?? Cast Applied: Yes ?? Location: ??Wrist Wrist: ??L wrist Cast type: ??Thumb spica cast (IP free) Supplies: ??Cotton Padding, fiberglass and cotton stocking/sleeve Number of fiberglass rolls used: ??2 Capillary Refill: ??Normal Patient tolerance of procedure: ??Tolerated well, no immediate complications us Sebastián Bertrand MD IN CLINIC/BEDSIDE ORDERAB LES Final Result * X-ray wrist left 3+ views (03/11/2018 [...] styloid. Electronically signed by: Ismael Duff M.D. Sebastián Bertrand MD IMG XR PROCEDURES Final R esult documented in this encounter Visit Diagnoses Diagnosis Closed nondisplaced fracture of scaphoid of left wrist, unspecified portion of scaphoid, initial encounter- Primary Closed nondisplaced fracture of scaphoid of left wrist, unspecified portion of scaphoid, initial encounter documented in this encounter Care Teams Core Measures Abstractor Relationship Specialty Start Date End Date Timo German MD [address] [place] [address] PCP - General 04/16/17 06/17/20 documented as of this encounter
--- OUTSIDE RECORDS SUMMARY | 2024-06-10 07:09 | XMS_ITS | Encounter Summary ---
Author Organization [facility] Healthcare Address [address] [place] [address] Care Team Providers Care Dexigraph Operator Name Role Phone Timo German MD Primary Care Provider [phone] Encounter Details Date Type Department Care Team (Late st Contact Info) Description 02/26/2018 6:06 AM CDT - 02/26/2018 9:07 AM CDT Hospital Encounter [facility] Surgery at [facility] [address] [place] [address] Sebastián Bertrand MD [address] [facility] [address] [place] [address] Discharge Disposition: Discharge to home or self care Social History Tobacco Use Types Packs/Day Years Used Date Smoking Tobacco: Former Smokeless Tobacco: Never Tobacco Cessation:Counseling Given: No Alcohol Use Standard Drinks/Week Comments Yes 1 (1 standard drink = 0.6 oz pur e alcohol) Comments Unknown Sex and Gender Information Value Date Recorded Sex Assigned at Not on file 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 Gender Identity Not on file Sexual Orientation Not on file documented as of this encounter Last Filed Vital Signs Vital Sign Reading Time Taken Comments Blood Pressure 111/68 02/26/2018 8:55 AM CDT Pulse 81 02/26/2018 8:55 AM CDT Temperature 36.4 ??C (97.5 ??F) 02/26/2018 8:34 AM CD T Respiratory Rate 24 02/26/2018 8:55 AM CDT Oxygen Saturation 94% 02/26/2018 8:55 AM CDT Inhaled Oxygen Concentration - - Weight 72.6 kg (160 lb) 02/25/2018 2:40 PM CDT Height 154.9 cm (5' 1 ) 02/25/2018 2:40 PM CDT Body Mass Index 30.23 02/25/2018 2:40 PM CDT documented in this encounter Discharge Instructions * Discharge Instructions* Jerzy, Sebastián Mcneil MD - 02/26/2018 7:28 AM CDT POSTOPERATIVE INSTRUCTIONS - Dr. Bertrand Follow-up Appointments Your first postoperative visit with Dr. Bertrand is listed on the first page of your discharge instructions. .. .. Dressing and Wound Care ??? A large dressing has been placed on your arm to reduce motion and control swelling. Keep your dressing clean and dry. o Keep the dressing/splint on until your first postoperative office visit. o .. ??? Wear a plastic bag over your dressing/splint whenever you take a shower or bath ??? Swelling is normal after surgery. Elevate your hand/arm so the surgical site is above your heart to decrease the swelling. Swelling is like water, it runs downhill. This is especially important for the first 72 hours after surgery. o The best way to elevate your hand/arm is with your fingers pointing towards the ceiling and your hand/arm above the level of the heart (see handout). o You can use pillows to help prop your hand/arm up when sitting or lying down. ??? If you are experiencing pain, be sure you are elevating your hand/arm as often as possible. ??? Apply an ice pack over your dressing/splint for 20 minutes of every hour for the first 3 days when you are awake. This can help to reduce swelling and inflammation. Be sure the ice pack is waterproof so it does not leak on the dressing/splint. A simple ice pack can be made by adding ten cubes and a small amount of water in a small zip-lock bag. Seal this small bag tightly. Place this small bag in a larger zip lock bag. Apply to the area in pain. ??? If the dressing feels too tight in spite of elevation, loosen the outer wrap but do not remove the entire dressing. ACTIVITIES: ??? Bend and straighten the parts of your hand/arm that are not included in your surgical dressing or splint. Do this at least 6 times a day, as this will help decrease swelling and speed up your recovery. This includes your fingers when exposed so that you make a full fist. See attached handout. POSTOPERATIVE CARE/CONCERNS: ??? You may experience some temporary numbness in your fingers. ??? You should have very little to no bleeding on your dressing. ??? Notify the office (see contact info at bottom of page) for any of the following: o Excessive pain not relieved by rest, elevation, and pain medications o Feeling that the dressing is too tight in spite of adequately elevating hand/arm o Active bleeding through the dressing o Drainage from the wound site or pin sites o Foul odor from the dressing/wound o Temperature greater that 101? F or chills o Blue or excessively cold fingertips o Numbness of the fingertips that does not improve in spite of adequately elevating hand/arm PAIN MEDICATION: A prescription for Percocet has been included here - please fill it at your local pharmacy. A prescription for an anti-inflammatory (meloxicam) has been called into your pharmacy ??? Do not take pain medication or anti-inflammatories on an empty stomach. ??? It is illegal to drive while taking narcotic pain medication ??? Pain is a normal part of the recovery after surgery. The pain medication provided to you will help to decrease the discomfort but will not completely eliminate the pain. ??? Your pain should decrease over the first few days after surgery which will allow you to take less pain medicine, increase the time between doses of medication, or stop taking all pain medicine. ??? Please refer to Perioperative Narcotic Considerations form in your Pre- operative packet OFFICE CONTACT NUMBERS ??? During business hours (Mon-Sun 8am-4:30pm) o Dr. Bertrand's Mold Technician: VINICIO LI phone: [phone] ??? After hours/weekend (Emergencies Only; no medication refills) o [facility]: [phone] or toll-free documented in this encounter Medications at Time of Discharge amitriptyline (ELAVIL) 25 mg tablet Take 1 tablet (25 mg total) by mouth nightly amLODIPine (NORVASC) 5 mg tablet Take 1 tablet (5 mg total) by mouth real estate sales supervisor before breakfast dicyclomine (BENTYL) 20 mg tablet Take 1 tablet (20 mg total) by mouth every 6 (six) hours hydroCHLOROthiaz kleber (HYDRODIURIL) 25 mg tablet Take 1 tablet (25 mg total) by mouth real estate sales supervisor before breakfast levothyroxine sodium (TIROSINT) 50 mcg capsule 125 mcg real estate sales supervisor before breakfast. losartan (COZAAR) 50 mg tablet Take 50 mg by mouth real estate sales supervisor before breakfast. meloxicam (MOBIC) 7.5 mg tablet [...] or self care documented in this encounter H&P Notes * Sebastián Betrrand MD - 02/26/2018 7:11 AM CDT I have reviewed the H&P, examined the patient, and endorse the findings as written. Plan of Care : Based on the above findings, I consider Karon Gaviria to be an acceptable risk for :Procedure(s): OPEN REDUCTION INTERNAL FIXATION LEFT SCAPHOID FRACTURE - 1 HR BONE GRAFT - SCAPHOID Source Note - Sebastián Bertrand MD - 02/25/2018 10:20 AM CDT NEW PATIENT VISIT CHIEF COMPLAINT: Left wrist fracture HISTORY OF PRESENT ILLNESS This is a 57 y.o. female presenting for evaluation of left wrist fracture. She slipped and fell in the shower on February 14, was subsequently seen in emergency room February 16, and placed into a thumb spica cast on February 18. She describes pain that is mild along the radial aspect of her wrist. I was asked to see this patient by Dr. Germain for my thoughts regarding management of a scaphoidfracture. Currently without any numbness or tingling. PAST MEDICAL HISTORY Past Medical History: Diagnosis Date ??? Migraines ??? Thyroid disease PAST SURGICAL HISTORY Past Surgical History: Procedure Laterality Date ??? HERNIA REPAIR ??? HYSTERECTOMY SOCIAL HISTORY Social History Social History ??? Marital status: Spouse name: N/A ??? Number of children: N/A ??? Years of education: N/A Occupational History ??? Not on file. Social History Main Topics ??? Smoking status: Former Smoker ??? Smokeless tobacco: Never Used ??? Alcohol use Yes ??? Drug use: No ??? Sexual activity: Not on file Other Topics Concern ??? Not on file Social History Narrative Alcohol : (Added by [employer]) Tobacco use : (Added by [employer] Conv) Never a smoker : (Added by [employer] Conv) Social History Occupational History ??? Not on file. Social History Main Topics ??? Smoking status: Former Smoker ??? Smokeless tobacco: Never Used ??? Alcohol use Yes ??? Drug use: No ??? Sexual activity: Not on file FAMILY HISTORY Family History Problem Relation Age of Onset [...] cardiac disorder - (Added by TW Conv) REVIEW OF SYSTEMS Review of Systems All other systems reviewed and are negative. MEDICATIONS Current Outpatient Prescriptions: ??? amitriptyline (ELAVIL) 25 mg tablet, Take 25 mg by mouth nightly., Disp: , Rfl: ??? amLODIPine (NORVASC) 5 mg tablet, Take 5 mg by mouth daily., Disp: , Rfl: ??? dicyclomine (BENTYL) 20 mg tablet, Take 20 mg by mouth every 6 (six) hours., Disp: , Rfl: ??? hydroCHLOROthiazide (HYDRODIURIL) 25 mg tablet, Take 25 mg by mouth daily., Disp: , Rfl: ??? levothyroxine sodium (TIROSINT) 50 mcg capsule, Take 50 mcg by mouth daily., Disp: , Rfl: ??? losartan (COZAAR) 50 mg tablet, Take 50 mg by mouth daily., Disp: , Rfl: ??? terbinafine (LamiSIL) 250 mg tablet, Take 250 mg by mouth daily., Disp: , Rfl: ??? topiramate (TOPAMAX) 50 mg tablet, Take 50 mg by mouth 2 (two) times a day., Disp: , Rfl: ??? zolpidem (AMBIEN) 5 mg tablet, Take 10 mg by mouth nightly as needed for sleep., Disp: , Rfl: DRUG ALLERGIES Allergies Allergen Reactions ??? Codeine Other (See comments) Reaction: hives, , PHYSICAL EXAMINATION GENERAL: This is a well-developed, well-nourished, age-appropriate patient in no acute distress. The patient [...] to touch. NEUROLOGIC: No ataxia. UPPER EXTREMITIES: Exam of the left upper extremity reveals a cast that is clean dry and intact. The cast has been removed. Motion limited after just coming out of the cast. She has swelling about her fingers. She is able to move all fingers with no deficits. She has brisk capillary refill. Sensation is intact to light touch in the radial ulnar aspect of all digits. The point tender over the anatomical snuffbox. Notenderness over DRUJ. REVIEW OF X-RAYS/STUDIES Review of outside imaging as well as three view of the wrist obtained today show a displaced scaphoid fracture with some comminution. Scaphoid waist fracture, comminution along the radial cortex. IMPRESSION/DIAGNOSIS/ PLAN Karon presents with a displaced left scaphoid fracture. This meets operative indications given the fact that she is shortened, angulated, and comminuted. We have discussed the role of operative and nonoperative management with her and she prefers operative management. We discussed the possibility of letting this heal where it is and subsequently performing any interventions for the posttraumatic arthritis, versus intervening now. Even with intervening now, possibility of nonunion or progressivetraumatic arthritis also discussed. She will be scheduled for open reduction internal fixation of her scaphoid fracture and she will follow up postoperatively with x-rays obtained with fluoroscopy out of her splint. We discussed the pros and cons, expectations for recovery, and likely postoperative course after surgery. Risks, benefits, alternatives, and possible complications were discussed with patient/family,who wish to proceed. Specifically relevant to this procedure, we discussed Malunion, nonunion, postt raumatic arthritis, revision surgery, persistent, recurrent, and/or residual symptoms and hardware prominence and/or future removal . This is in addition to the risks of infection, cutaneous numbness, scar prominence, and stiffness of adjacent joints. I recommended that the patient discuss any concerns regarding anesthesia-related risks with the anesthesiologist. The patient and I had a discussion regarding my preferences and philosophy towards opioid use. I instructed the patient not to drive or operate heavy machinery while taking opioids. We discussed the risk of opioid use and dependence.We discussed my preferences of using non-steroidal anti-inflammatory medications to decrease the duration of opioid use, based on their medical comorbidities. All questions were answered. We'll move forward with scheduling surgery at the next mutually agreeable date. Sebastián Bertrand M.D. Digital Producer Hand and Upper Extremity [facility] Dr. Bertrand is dictating using speech recognition software. Deep Fat Cook Fry variances may occur. * Ramon Mosquera MD - 02/26/2018 6:41 AM CDT I have reviewed the H&P, examined the patient, and endorse the findings as written. Plan of Care : Based on the above findings, I consider Karon Gaviria to be an acceptable risk for :Procedure(s): OPEN REDUCTION INTERNAL FIXATION LEFT SCAPHOID FRACTURE - 1 HR BONE GRAFT - SCAPHOID Source Note - Sebastián Bertrand MD - 02/25/2018 10:20 AM CDT NEW PATIENT VISIT CHIEF COMPLAINT: Left wrist fracture HISTORY OF PRESENT ILLNESS This is a 57 y.o. female presenting for evaluation of left wrist fracture. She slipped and fell in the shower on February 14, was subsequently seen in emergency room February 16, and placed into a thumb spica cast on February 18. She describes pain that is mild along the radial aspect of her wrist. I was asked to see this patient by Dr. Germain for my thoughts regarding management of a scaphoidfracture. Currently without any numbness or tingling. PAST MEDICAL HISTORY Past Medical History: Diagnosis Date ??? Migraines ??? Thyroid disease PAST SURGICAL HISTORY Past Surgical History: Procedure Laterality Date ??? HERNIA REPAIR ??? HYSTERECTOMY SOCIAL HISTORY Social History Social History ??? Marital status: Spouse name: N/A ??? Number of children: N/A ??? Years of education: N/A Occupational History ??? Not on file. Social History Main Topics ??? Smoking status: Former Smoker ??? Smokeless tobacco: Never Used ??? Alcohol use Yes ??? Drug use: No ??? Sexual activity: Not on file Other Topics Concern ??? Not on file Social History Narrative Alcohol : (Added by TW Conv) Tobacco use : (Added by [employer] Conv) Never a smoker : (Added by [employer] Conv) Social History Occupational History ??? Not on file. Social History Main Topics ??? Smoking status: Former Smoker ??? Smokeless tobacco: Never Used ??? Alcohol use Yes ??? Drug use: No ??? Sexual activity: Not on file FAMILY HISTORY Family History Problem Relation Age of Onset [...] cardiac disorder - (Added by TW Conv) REVIEW OF SYSTEMS Review of Systems All other systems reviewed and are negative. MEDICATIONS Current Outpatient Prescriptions: ??? amitriptyline (ELAVIL) 25 mg tablet, Take 25 mg by mouth nightly., Disp: , Rfl: ??? amLODIPine (NORVASC) 5 mg tablet, Take 5 mg by mouth daily., Disp: , Rfl: ??? dicyclomine (BENTYL) 20 mg tablet, Take 20 mg by mouth every 6 (six) hours., Disp: , Rfl: ??? hydroCHLOROthiazide (HYDRODIURIL) 25 mg tablet, Take 25 mg by mouth daily., Disp: , Rfl: ??? levothyroxine sodium (TIROSINT) 50 mcg capsule, Take 50 mcg by mouth daily., Disp: , Rfl: ??? losartan (COZAAR) 50 mg tablet, Take 50 mg by mouth daily., Disp: , Rfl: ??? terbinafine (LamiSIL) 250 mg tablet, Take 250 mg by mouth daily., Disp: , Rfl: ??? topiramate (TOPAMAX) 50 mg tablet, Take 50 mg by mouth 2 (two) times a day., Disp: , Rfl: ??? zolpidem (AMBIEN) 5 mg tablet, Take 10 mg by mouth nightly as needed for sleep., Disp: , Rfl: DRUG ALLERGIES Allergies Allergen Reactions ??? Codeine Other (See comments) Reaction: hives, , PHYSICAL EXAMINATION GENERAL: This is a well-developed, well-nourished, age-appropriate patient in no acute distress. The patient [...] to touch. NEUROLOGIC: No ataxia. UPPER EXTREMITIES: Exam of the left upper extremity reveals a cast that is clean dry and intact. The cast has been removed. Motion limited after just coming out of the cast. She has swelling about her fingers. She is able to move all fingers with no deficits. She has brisk capillary refill. Sensation is intact to light touch in the radial ulnar aspect of all digits. The point tender over the anatomical snuffbox. Notenderness over DRUJ. REVIEW OF X-RAYS/STUDIES Review of outside imaging as well as three view of the wrist obtained today show a displaced scaphoid fracture with some comminution. Scaphoid waist fracture, comminution along the radial cortex. IMPRESSION/DIAGNOSIS/ PLAN Karon presents with a displaced left scaphoid fracture. This meets operative indications given the fact that she is shortened, angulated, and comminuted. We have discussed the role of operative and nonoperative management with her and she prefers operative management. We discussed the possibility of letting this heal where it is and subsequently performing any interventions for the posttraumatic arthritis, versus intervening now. Even with intervening now, possibility of nonunion or progressivetraumatic arthritis also discussed. She will be scheduled for open reduction internal fixation of her scaphoid fracture and she will follow up postoperatively with x-rays obtained with fluoroscopy out of her splint. We discussed the pros and cons, expectations for recovery, and likely postoperative course after surgery. Risks, benefits, alternatives, and possible complications were discussed with patient/family,who wish to proceed. Specifically relevant to this procedure, we discussed Malunion, nonunion, postt raumatic arthritis, revision surgery, persistent, recurrent, and/or residual symptoms and hardware prominence and/or future removal . This is in addition to the risks of infection, cutaneous numbness, scar prominence, and stiffness of adjacent joints. I recommended that the patient discuss any concerns regarding anesthesia-related risks with the anesthesiologist. The patient and I had a discussion regarding my preferences and philosophy towards opioid use. I instructed the patient not to drive or operate heavy machinery while taking opioids. We discussed the risk of opioid use and dependence.We discussed my preferences of using non-steroidal anti-inflammatory medications to decrease the duration of opioid use, based on their medical comorbidities. All questions were answered. We'll move forward with scheduling surgery at the next mutually agreeable date. Sebastián Bertrand M.D. Digital Producer Hand and Upper Extremity [facility] Dr. Betrrand is dictating using speech recognition software. Deep Fat Cook Fry variances may occur. documented in this encounter Miscellaneous Notes * Op Note - Sebastián Bertrand MD - 02/26/2018 7:37 AM CDT OPERATIVE REPORT SURGEON Sebastián Bertrand MD, M[facility] BOTTLE DEALER Ramon Mosquera MD PREOPERATIVE and POSTOPERATIVE DIAGNOSES 1. Left scaphoid waist fracture. PROCEDURES 1. Left scaphoid waist fracture ORIF. ANESTHESIA TYPE General SPECIMENS None. DRAINS None. COMPLICATIONS None. DISPOSITION Recovery in stable condition. ESTIMATED BLOOD LOSS: 5cc DESCRIPTION OF PROCEDURE Patient was greeted in the holding area. The risks/benefits/alternatives to surgery had been discussed. Informed consent had been signed and the operative site was marked. The patient was transferred to the operating room. The operative limb was prepped and draped in normal sterile fashion. Surgical timeout was called. The limb was exsanguinated with an Esmarch bandage and the tourniquet was inflated. We began with avolar approach to the scaphoid. A longitudinal incision was made along the distal aspect of the FCRtendon, taken at an angle at the glabrous non glabrous junction. Skin and subcutaneous tissues weredivided. We then mobilized the FCR tendon, and created capsular ligamentous flap deep to the FCR over the radiocarpal joint tissue and the RSC ligament. We elevated this and identified the scaphoid. There was consolidation beginning of the fracture. We exposed the fracture site, localized it on x-ray. Given the stable nature of the fracture, we decided not to perform any additional bone grafting.We then inserted a mini AcuTrak screw, size 20, using the guidewire and cannulated drill, inserted in a retrograde manner after removing a small portion of the trapezium. Adequate threads were acrosseach side of the fracture and there was good fixation within the bone. The scaphoid moved as a unit. Multiple fluoroscopy images were taken to ensure appropriate reduction and appropriate fixation. The wound was thoroughly irrigated. The capsular ligamentous flap was reapproximated with 3 0 Monocryl sutures, followed by 3 O nylon interlock horizontal mattress skin closure.Sterile dressings were applied, followed by a plaster thumb spica splint. I was the attending surgeon and was present and scr ubbed for the entire surgery with the exception of skin closure, at which time I remained immediately available . * Pre-Procedure Instructions - Viki Lopez NP - 02/25/2018 3:57 PM CDT [facility] Location: [facility] The night before your surgery: * Do not eat or drink anything after midnight. This includes candy, mint, gums, chewable antacids (TUMS, Rolaids) and cough drops * Do not smoke after midnight the night before surgery. It is best to stop smoking now to improve your health. The morning of your surgery: * You may brush your teeth and rinse your mouth out. * Do not glue your dentures. * Do not wear jewelry, body piercings, makeup, hairpins, false eyelashes or contact lenses to the hospital. * Leave any valuables at home or with your family. You may want to bring a credit card if you want to use our Mobile Pharmacy for your discharge medications. Outpatient Surgery: * You must have a responsible adult drive you home and stay with you for 24 hours after your surgery * You cannot be alone at home or in a hotel * Please call your surgeon's office if you do not have someone to drive you home and/or stay with you after surgery * Please bring any items you may need to spend the night in the hospital. Sometimes patients need to be cared for in the hospital overnight. Instructions For Your Medications: Pre-Surgery Instructions: Medication Instructions ??? amitriptyline (ELAVIL) 25 mg tablet Take on day of surgery if needed ??? amLODIPine (NORVASC) 5 mg tablet Take on day of surgery if needed ??? dicyclomine (BENTYL) 20 mg tablet Take on day of surgery if needed ??? hydroCHLOROthiazide (HYDRODIURIL) 25 mg tablet Don't take on day of surgery ??? levothyroxine sodium (TIROSINT) 50 mcg capsule Take on day of surgery if needed ??? losartan (COZAAR) 50 mg tablet Take on day of surgery if needed ??? meloxicam (MOBIC) 7.5 mg tablet Stop taking 1 week prior to surgery ??? topiramate (TOPAMAX) 50 mg tablet Take on day of surgery if needed ??? zolpidem (AMBIEN) 5 mg tablet Don't take on day of surgery General Instructions For Medications: ?? Stop all of these medications 5 days prior to your surgery: excedrin, motrin, advil, ibuprofen, aleve, naproxen, celebrex, celecoxib, meloxicam ?? Stop all of these medications 7-14 days prior to your surgery: Vitamin E, Fish Oil (Lovaza, [place] 3), Herbal medicines, Diet Pills ?? If you have pain, you may take tylenol (acetominophen). Do not take more than 6 tablets or 3000 mg (3 g) within a 24 period. Call your surgeon and the CPAP clinic if any of the following happens before surgery: ?? Any changes in your health ?? You have a fever ?? You have any signs of an infection (chest, urinary tract or tooth) ?? You have been to the Emergency Room or were in the hospital ?? You have started taking any new medications ?? You have questions about a bowel prep or special diet before surgery * Pre-Procedure Instructions - Elizabeth Leon RN - 02/25/2018 2:45 PM CDT ?? Map for surgery location given to patient. ?? Arrival time and surgical time will be provided by your surgeon. ?? [facility] folder given to patient ?? Bring a current list of all medications. ?? Bring your ID and insurance card with you. ?? Do not shave the area where surgery is to be performed 24 hours prior to surgery. ?? Wash your hair with normal shampoo the morning of or night before surgery. ?? Wear loose comfortable clothes the morning of surgery ? How To Prepare Your Skin For Surgery with chlorhexidine surgical scrub instructions given to patient. Do not use the antiseptic soap on your face or hair. ?? Shower the evening before surgery and morning of surgery with an antibacterial soap. ?? Fall preventions/risk education provided to patient and family ?? Safety Tips for Preventing Falls in the Hospital and at Home handout provided ?? Educated patient on the need for yellow FALL RISK wrist band while attending additional [facility] appointments. Placed yellow FALL RISK wrist band on patient. ? edu documented in this encounter Plan of Treatment Not on file documented as of this encounter Procedures Procedure Name Priority Date/Time Associated Diagnosis Comments BONE GRAFT - RADIUS/ULNA 02/26/2018 7:17 AM CDT Closed displaced fracture of scaphoid of left wrist, unspecified portion of scaphoid, initial encounter Special Needs K-WIRES, MINI ACUTRAK SCREWS, CURETTES, OSTEOTOME OPEN REDUCTION INTERNAL FIXATION - RADIUS 02/26/2018 7:17 AM CDT Closed displaced fracture of scaphoid of left wrist, unspecified portion of scaphoid, initial encounter Special Needs K-WIRES, MINI ACUTRAK SCREWS, CURETTES, OSTEOTOME documented in this encounter Visit Diagnoses Diagnosis Closed displaced fracture of scaphoid bone of left wrist- Primary documented in this encounter Admitting Diagnoses Diagnosis Closed displaced fracture of scaphoid bone of left wrist documented in this encounter Administered Medications Inactive Administered Medications - up to 3 most recent administrations Medication Order MAR Action Action Date Dose Rate Site Lactated Ringer's (LR) infusion 30 mL/hr, intravenous, Continuous, Starting on Sun02/26/18 at 0815, Pre-Op New Bag 02/26/2018 7:00 AM CDT oxyCODONE-acetaminophen (PERCOCET) 5-325 mg per tablet - ADS Override Pull Starting on Sun02/26/18 at 0844, For 1 dose, JOSE LUIS HERRERA: cabinet override Given 02/26/2018 8:52 AM CDT 1 tablet sodium chloride 0.9% flush 0.5-20 mL 0.5-20 mL, intra-catheter, As needed, line care, Starting on Sun02/26/18 at 0743, Pre-Op, Flush volume based on line type and size. Flush before and after each use. , Indications: FlushingIndications:Flushing documented in this encounter Discontinued Medications Medication Sig Discontinue Reason Start Date End Da te oxyCODONE-acetaminophen (PERCOCET) 5-325 mg per tabletIndications:Pain 1-2 TABLETS EVERY 4-6 HRS PRN PAIN Therapy completed 02/25/2018 02/25/2018 terbinafine (LamiSIL) 250 mg tablet Take 250 mg by mouth daily. Therapy completed 02/25/2018 documented as of this encounter Active and Recently Administered Medications Times are shown in CDT. Continuous Medication Order 02/24/2018 02/25/2018 02/26/2018 Lactated Ringer's (LR) infusion 30 mL/hr, intravenous, Continuous, Starting on Sun02/26/18 at 0815, Pre-Op 0700 (New Bag - Prov ider: Ashley Blackwood CRNA)0820 (Anesthesia Volume Adjustment - Provider: Ashley Blackwood CRNA) PRN Medication Order 02/24/2018 02/25/2018 02/26/2018 fentaNYL (SUBLIMAZE) preservative free injection 50 mcg 50 mcg, intravenous, Every 10 min PRN, 1st line for pain, Starting on Sun02/26/18 at 0845, Phase I, Notify Anesthesiologist if total PACU dose reaches 100 mcg and pain score 5/10 or more., Indications: Pain hydrALAZINE (APRESOLINE) injection 5 mg 5 mg, intravenous, Every 15 min PRN, high blood pressure, Starting on Sun02/26/18 at 0845, Phase I, Max cumulative dose 20 mg. Dose if systolic BP greater than 180 AND heart rate less than 70. , Indications: hypertension labetalol (NORMODYNE,TRANDATE) injection 5 mg 5 mg, intravenous, Every 10 min PRN, high blood pressure, Starting on Sun02/26/18 at 0845, Phase I, Max cumulative dose 20 mg. Dose if systolic blood pressure greater than 180 AND HR greater than 70. meperidine (DEMEROL) preservative free injection 12.5 mg 12.5 mg, intravenous, Every 10 min PRN, shivering, Starting on Sun02/26/18 at 0845, For 2 doses, Phase I, Max cumulative dose 25 mg., Indications: Shivering naloxone (NARCAN) 0.4 mg/mL injection 0.04-0.4 mg 0.04-0.4 mg, intravenous, Once as needed, other, excessive sedation/respiratory depression, Starting on Sun02/26/18 at 0845, For 1 dose, Phase I, Dilute 0.4 mg with 9 mL NS (final concentration 0.04 mg/mL). For respiratory depression (respiratory rate less than 6), administer 0.4 mg IVP over 30 seconds. For excessive sedation administer 0.04 mg (1 mL) every 1 minute until desired level of alertness., Indications: Opioid Toxicity sodium chloride 0.9 % irrigation (CANCELED) As needed, Starting on Sun02/26/18 at 0753, Intra-Op 0753 (Given - Provid er: Sebastián Bertrand MD) sodium chloride 0.9% flush 0.5-20 mL 0.5-20 mL, intra-catheter, As needed, line care, Starting on Sun02/26/18 at 0743, Pre-Op, Flush volume based on line type and size. Flush before and after each use. , Indications: Flushing No Frequency Medication Order 02/24/2018 02/25/2018 02/26/2018 oxyCODONE-acetaminophen (PERCOCET) 5-325 mg per tablet - ADS Override Pull (COMPLETED) Starting on Sun02/26/18 at 0844, For 1 dose, JOSE LUIS HERRERA: cabinet override 0852 (Given - Provid er: Jose Luis Herrera RN - Comment: for discharge coverage) documented in this encounter Orders Medications Ordered That Kaushal ht Not Have Been Administered Count Last Ordered Date First Ordered Date fentaNYL (SUBLIMAZE) preserv ative free injection 50 mcg 1 02/26/2018 hydrALAZINE (APRESOLINE) injection 5 mg 1 0 02/26/2018 HYDROcodone-acetaminophen (N ORCO) 5-325 mg per tablet 2 tablet 1 02/26/2018 labetalol (NORMODYNE,TRANDAT E) injection 5 mg 1 02/26/2018 Lactated Ringer's (LR) infusion 8 lidocaine (XYLOCAINE) 20 mg/ mL (2 %) preservative free injection - ADS Override Pull 1 02/26/2018 meperidine (DEMEROL) preserv ative free injection 12.5 mg 1 02/26/2018 naloxone (NARCAN) 0.4 mg/mL injection 0.04-0.4 mg 1 02/26/2018 sodium chloride 0.9 % irrigation 1 02/27/20 18 sodium chloride 0.9% flush 0.5-20 mL 1 02/09 documented in this encounter Care Teams Dexigraph Operator Relationship Specialty Start Date End Date Timo German MD [facility] [place] [address] PCP - General 04/16/17 06/17/20 documented as of this encounter
--- OUTSIDE RECORDS SUMMARY | 2024-06-10 07:09 | XMS_ITS | Encounter Summary ---
Author Organization [facility] Healthcare Address [address] [place] [address] Care Team Providers Care Automatic Fancy Machine Operator Name Role Phone Timo German MD Primary Care Provider [phone] Encounter Details Date Type Department Care Team (Late st Contact Info) Description 01/03/2018 Orders Only [facility] Lab [address] [place] [id number] Myles Mahajan, DO [address] [place] [address] Crohn's disease of large intestine without complication (CMS/HCC) (Primary Dx) Social History Tobacco Use Types Packs/Day Years Used Date Smoking Tobacco: Never Assessed Comments Unknown Sex and Gender Information Value Date Recorded Sex Assigned at Not on file 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:53 AM APPLIED STATISTICIAN Gender Identity Not on file Sexual Orientation Not on file documented as of this encounter Plan of Treatment Not on file documented as of this encounter Results * TB test, quantiferon gold (01/04/2018 11:15 AM CDT) Quantiferon TB Gold WIP [facility] Comment: QuantiFERON-Tb Gold Plus, B was cancelled on 01/07/2018 at 12:13; One or more of collection tubes was under-filled (<0.8 mL sample). TB-Nil [facility] Comment: QuantiFERON-Tb Gold Plus, B was cancelled on 01/07/2018 at 12:13; One or more of collection tubes was under-filled (<0.8 mL sample). TB2-Nil [facility] Comment: QuantiFERON-Tb Gold Plus, B was cancelled on 01/07/2018 at 12:13; One or more of collection tubes was under-filled (<0.8 mL sample). Mitogen-Nil [facility] Comment: QuantiFERON-Tb Gold Plus, B was cancelled on 01/07/2018 at 12:13; One or more of collection tubes was under-filled (<0.8 mL sample). NIL [facility] Comment: QuantiFERON-Tb Gold Plus, B was cancelled on 01/07/2018 at 12:13; One or more of collection tubes was under-filled (<0.8 mL sample). Test Performed by: [facility] [address] [place] [address] Blood specimen (specimen) 01/04/2018 11:15 AM CDT 01/05/2018 9:01 AM CDT Narrative [facility] - 01/07/2018 12:16 PM CDT us Myles Mahajan DO LAB BLOOD ORDERABLES Final Res ult [facility] [address] [place] [address] documented in this encounter Visit Diagnoses Diagnosis Crohn's disease of large intestine without complication (CMS/HCC) (HCC)- Primary Crohn's disease of large intestine without complication (CMS/HCC) (HCC) documented in this encounter Care Teams Automatic Fancy Machine Operator Relationship Specialty Start Date End Date Timo German MD [facility] [place] [address] PCP - General 04/16/17 06/17/20 documented as of this encounter
--- OUTSIDE RECORDS SUMMARY | 2024-06-10 07:09 | XMS_ITS | Encounter Summary ---
Author Organization [facility] Healthcare Address [address] [place] [address] Care Team Providers Care Poacher Wringer Operator Name Role Phone Timo German MD Primary Care Provider [phone] Encounter Details Date Type Department Care Team (Late st Contact Info) Description 01/04/2018 10:45 AM CDT Lab [facility] [address] [place] [address] Crohn's disease of large intestine without complication (CMS/HCC) Social History Tobacco Use Types Packs/Day Years Used Date Smoking Tobacco: Never Assessed Comments Unknown Sex and Gender Information Value Date Recorded Sex Assigned at Not on file 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:53 AM ORTHOPEDIC ASSISTANT Gender Identity Not on file Sexual Orientation Not on file documented as of this encounter Plan of Treatment Not on file documented as of this encounter Procedures Procedure Name Priority Date/Time Associated Diagnosis Comments TB TEST, QUANTIFERON GOLD Routine 01/04/2018 11:15 AM CDT Crohn's disease of large intestine without complication (CMS/HCC) documented in this encounter Results * TB test, quantiferon gold (01/04/2018 11:15 AM CDT) Quantiferon TB Gold [facility] Comment: QuantiFERON-Tb Gold Plus, B was cancelled on 01/07/2018 at 12:13; One or more of collection tubes was under-filled (<0.8 mL sample). [facility] Comment: QuantiFERON-Tb Gold Plus, B was cancelled on 01/07/2018 at 12:13; One or more of collection tubes was under-filled (<0.8 mL sample). TB2-Nil [facility] Comment: QuantiFERON-Tb Gold Plus, B was cancelled on 01/07/2018 at 12:13; One or more of collection tubes was under-filled (<0.8 mL sample). Mitogen-Nil [facility] Comment: QuantiFERON-Tb Gold Plus, B was cancelled on 01/07/2018 at 12:13; One or more of collection tubes was under-filled (<0.8 mL sample). NIL [facility] Comment: QuantiFERON-Tb Gold Plus, B was cancelled on 01/07/2018 at 12:13; One or more of collection tubes was under-filled (<0.8 mL sample). Test Performed by: [facility] [address] [place] [address] Blood specimen (specimen) 01/04/2018 11:15 AM CDT 01/05/2018 9:01 AM CDT Narrative [facility] - 01/07/2018 12:16 PM CDT us Myles Mahajan DO LAB BLOOD ORDERABLES Final Res ult [facility] [address] [place] [address] documented in this encounter Visit Diagnoses Diagnosis Crohn's disease of large intestine without complication (CMS/HCC) (HCC) documented in this encounter Care Teams Poacher Wringer Operator Relationship Specialty Start Date End Date Timo German MD [address] [place] [address] PCP - General 04/16/17 06/17/20 documented as of this encounter
--- OUTSIDE RECORDS SUMMARY | 2024-06-10 07:09 | XMS_ITS | Encounter Summary ---
Author Organization [facility] Address [address] [place] [address] Phone Care Team Providers Care Pipe Turner Name Role Phone Timo German MD Primary Care Provider [phone] Reason for Referral * Consultation (Routine) - Closed Specialty Diagnoses / Procedures Referred By Phong luo Referred To Contact Occupational Therapy Diagnoses Closed nondisplaced fracture of scaphoid of left wrist, unspecified portion of scaphoid, initial encounter Sebastián Bertrand MD Phone: tel: fax: [facility] [address] [place] [address] [place] [address] Phone: tel: fax: Referral ID Status Reason Start Date Expiration Date V isits Requested Visits Authorized [id number] Closed Specialty Services Required 04/29/2018 11/08/2019 20 20 Question Answer PTRFR OT Evaluate and Treat Reason for Visit s/p scaphoid ORIF Therapy options discussed with patient? Yes Location provided for therapy services is: Patient requested/Patient preferred Comments Hand Therapy Evaluate and Treat Frequency/Duration: 2-3x/wk x 4-6 weeks ROM: AROM wrist/forearm Strengthening: gradual, <15 lbs Restrictions: as above; no PROM Orthosis: none OAT OPERATOR * Diagnostic Imaging (Routine) - Closed Specialty Diagnoses / Procedures Referred By Phong luo Referred To Contact Radiology Diagnoses Closed nondisplaced fracture of scaphoid of left wrist, unspecified portion of scaphoid, initial encounter Procedures CT wrist left without contrast Sebastián Bertrand MD Phone: tel: fax: [facility] Referral ID Status Reason Start Date Expiration Date Visits Re quested Visits Authorized [id number] Closed 04/22/2018 06/06/2018 1 1 OAT OPERATOR * Diagnostic Imaging (Routine) - Closed Specialty Diagnoses / Procedures Referred By Phong t Referred To Contact Diagnoses Left wrist pain Procedures X-ray wrist left 3+ views Sebastián Bertrand MD Phone: tel: fax: [facility] Referral ID Status Reason Start Date Expiration Date Visits Re quested Visits Authorized [id number] Closed 04/18/2018 10/28/2019 1 1 OAT OPERATOR Reason for Visit * Reason Comments Post-op Fracture Encounter Details Date Type Department Care Team (Late st Contact Info) Description 04/22/2018 8:30 AM TUGBOAT OPERATOR Office Visit [facility] Orthopaedic Surgery [address] [place] [address] Sebastián Bertrand MD [address] [place] [address] Left wrist pain (Primary Dx); Closed nondisplaced fracture of scaphoid of left wrist, unspecified portion of scaphoid, initial encounter Social History Tobacco Use Types Packs/Day Years Used Date Smoking Tobacco: Former Smokeless Tobacco: Never Alcohol Use Standard Drinks/Week Comments Yes 1 (1 standard drink = 0.6 oz pur e alcohol) Comments Unknown Sex and Gender Information Value Date Recorded Sex Assigned at Not on file 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:53 AM TUGBOAT OPERATOR Gender Identity Not on file Sexual Orientation Not on file documented as of this encounter Progress Notes * Sebastián Bertrand MD - 04/22/2018 8:30 AM CST POSTOPERATIVE VISIT INTERIM HISTORY The patient is now 7 weeks after ORIF left scaphoid performed on 02/26/2018. Has been in her cast. Did not go on her flow trip because the weather was to cold, but did some hiking. Feeling well. No complaints. PHYSICAL EXAMINATION Wounds are well-healed. No evidence of infection. No dramatic swelling. DPC 0. No tenderness in the anatomical snuffbox. REVIEW OF X-RAYS/STUDIES Today, ordered and personally reviewed four views of the left wrist. Interval healing of scaphoid fracture, no change in position. IMPRESSION/DIAGNOSIS/PLAN She is progressing as expected. I would like to evaluate the percent dealing with the CT scan. Cock-up wrist brace for now, and I will speak with her on the phone. In the meantime, hold on motion fornow. Otherwise, I will see her back in 6 weeks for repeat clinical exam. Sebastián Bertrand M.D. Outside Physical Damage Appraiser Hand and Upper Extremity [facility] Orthopedics Dr. Bertrand is dictating using speech recognition software. Sewing Machine Repairer Helper variances may occur. OAT OPERATOR * Cathy Castaneda MS - 04/22/2018 8:30 AM CSTAssociated Order(s): ORTHO CASTING/SPLINTING Post-Procedure Diagnose(s): Closed nondisplaced fracture of scaphoid of left wrist, unspecified portion of scaphoid, initial encounter Ortho Casting/Splinting Documentation Date/Time: 04/22/2018 9:07 AM Performed by: CATHY CASTANEDA Authorized by: SEBASTIÁN BERTRAND Sensation: Normal Skin Condition: Clean, dry, and intact Tyler/Sutures Removed: No Pin Pulled: No Cast Removed: Yes Cast Applied: No Capillary Refill: Normal Patient tolerance of procedure: Tolerated well, no immediate complications Patient was given a cock-up wrist brace. OAT OPERATOR documented in this encounter Miscellaneous Notes * Addendum Note - Garry Atkins RN - 04/22/2018 8:30 AM CSTAddended by: GARRY ATKINS on: 04/22/2018 09:04 AM Modules accepted: Orders OAT OPERATOR * Addendum Note - Sebastián Bertrand MD - 04/22/2018 8:30 AM CSTAddended by: SEBASTIÁN BERTRAND on: 04/29/2018 03:58 PM Modules accepted: Orders OAT OPERATOR documented in this encounter Plan of Treatment Scheduled Referrals Name Type Priority Associated Diagnoses Orde r Schedule Ambulatory referral order to Occupational Therapy - Outpatient Referral Routine Closed nondisplaced fracture of scaphoid of left wrist, unspecified portion of scaphoid, initial encounter Ordered: 04/29/2018 documented as of this encounter Procedures Procedure Name Priority Date/Time Associated Diagnosis Comments ORTHO CASTING/SPLINTING Routine 04/22/2018 8:30 AM TUGBOAT OPERATOR Closed nondisplaced fracture of scaphoid of left wrist, unspecified portion of scaphoid, initial encounter documented in this encounter Results * CT wrist left without contrast (04/29/2018 1:45 PM TUGBOAT OPERATOR) Anatomical Region Laterality Modality Upper Extremities Left Computed Tomog janee 04/29/2018 2:53 PM TUGBOAT OPERATOR Impressions 04/29/2018 2:53 PM TUGBOAT OPERATOR 1. ??Healing, reduced and internally fixated left scaphoid waist fracture with osseous bridging of the proximal 60% of the ulnar and central aspect of the scaphoid waist with lack of osseous bridging and neocortex formation along the ulnar 40% 2. ??Healed, nondisplaced left radial styloid fracture Electronically signed by: Miguel Braswell MD, PHD Narrative 04/29/2018 2:53 PM TUGBOAT OPERATOR EXAMINATION: CT left wrist without contrast HISTORY: [...] MD IMG CT PROCEDURES Final R esult * X-ray wrist left 3+ views (04/22/2018 8:49 AM TUGBOAT OPERATOR) Anatomical Region Laterality Modality Upper Extremities, Wrist Left Compute d Radiography 04/22/2018 8:53 AM TUGBOAT OPERATOR Impressions 04/22/2018 8:53 AM TUGBOAT OPERATOR 1. ??Healing, reduced and internally fixated left scaphoid waist fracture. 2. Healing nondisplaced left radial styloid fracture. Electronically signed by: Tae Ocampo M.D. Narrative 04/22/2018 8:53 AM TUGBOAT OPERATOR EXAMINATION: 1. ??Left wrist 3+ views HISTORY: [...] fracture. Electronically signed by: Tae Ocampo M.D. us Sebastián Bertrand MD IMG XR PROCEDURES Final R esult * Ortho Casting/Splinting Documentation (04/22/2018 8:30 AM TUGBOAT OPERATOR) Cathy Luke MS - 04/22/2018 8:30 AM TUGBOAT OPERATOR Cathy Castaneda MS ? 04/22/2018 ??9:07 AM Ortho Casting/Splinting Documentation Date/Time: 04/22/2018 9:07 AM Performed by: CATHY CASTANEDA Authorized by: SEBASTIÁN BERTRAND Sensation: ??Normal Skin Condition: ??Clean, dry, and intact Pa/Sutures Removed: No ?? Pin Pulled: No ?? Cast Removed: Yes ?? Cast Applied: No ?? Capillary Refill: ??Normal Patient tolerance of procedure: ??Tolerated well, no immediate complications Patient was given a cock-up wrist brace. Sebastián Bertrand MD IN CLINIC/BEDSIDE ORDERAB LES Final Result documented in this encounter Visit Diagnoses Diagnosis Left wrist pain- Primary Pain in joint, forearm Closed nondisplaced fracture of scaphoid of left wrist, unspecified portion of scaphoid, initial encounter Left wrist pain Pain in joint, forearm Closed nondisplaced fracture of scaphoid of left wrist, unspecified portion of scaphoid, initial encounter documented in this encounter Care Teams Pipe Turner Relationship Specialty Start Date End Date Timo German MD [address] [place] [address] PCP - General 04/16/17 06/17/20 documented as of this encounter
--- OUTSIDE RECORDS SUMMARY | 2024-06-10 07:09 | XMS_ITS | Encounter Summary ---
Author Organization [facility] Address [address] [place] [address] Phone Care Team Providers Care Vegetable Preparer Name Role Phone Timo German MD Primary Care Provider [phone] Encounter Details Date Type Department Care Team (Late st Contact Info) Description 03/27/2018 Telephone [facility] Orthopaedic Surgery [address] [place] [address] Sebastián Bertrand MD [address] [place] [address] Social History Tobacco Use Types Packs/Day Years Used Date Smoking Tobacco: Former Smokeless Tobacco: Never Alcohol Use Standard Drinks/Week Comments Yes 1 (1 standard drink = 0.6 oz pur e alcohol) Comments Unknown Sex and Gender Information Value Date Recorded Sex Assigned at Not on file 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:53 AM CARPENTRY SPECIALIST Gender Identity Not on file Sexual Orientation Not on file documented as of this encounter Miscellaneous Notes * Telephone Encounter - Erlinda Garces MA - 03/27/2018 10:38 AM CDT I scheduled this patient to come in for a cast change today, 03/27/18 at 12:30PM on Dr. Nur's schedule at [facility]. Patient is requesting a waterproof cast. Dr. Bertrand said that is okay as long as the incision is healed. I will take a look at her incision to confirm that her incision is healed. Patient will need to go back into a left thumb spica cast IP free; waterproof. Diagnosis is left scaphoid fracture. documented in this encounter Plan of Treatment Not on file documented as of this encounter Visit Diagnoses Not on filedocumented in this encounter Care Teams Vegetable Preparer Relationship Specialty Start Date End Date Timo German MD [address] [place] [address] PCP - General 04/16/17 06/17/20 documented as of this encounter
--- OUTSIDE RECORDS SUMMARY | 2024-06-10 07:09 | XMS_ITS | Encounter Summary ---
Author Organization [facility] Address [address] [place] [address] Phone Care Team Providers Care Pediatrics Hospitalist Name Role Phone Timo German MD Primary Care Provider [phone] Encounter Details Date Type Department Care Team (Late st Contact Info) Description 02/25/2018 Orders Only [facility] Orthopaedic Surgery [address] [place] [address] Sebastián Bertrand MD [address] [place] [address] Closed displaced fracture of scaphoid of left [...] on file 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:53 AM SLAT PICKLER Gender Identity Not on file Sexual Orientation Not on file documented as of this encounter Ordered Prescriptions Prescription Sig Dispense Quantity Refills Last Filled Start Date End Date meloxicam (MOBIC) 7.5 mg tablet Take 1 tablet (7.5 mg total) by mouth 2 (two) times a day. 60 tablet 2 02/25/2018 oxyCODONE-acetamin ophen (PERCOCET) 5-325 mg per tabletIndications: Pain 1-2 TABLETS EVERY 4-6 HRS PRN PAIN 25 tablet 02/25/2018 8 documented in this encounter Plan of Treatment Not on file documented as of this encounter Visit Diagnoses Diagnosis Closed displaced fracture of scaphoid of left wrist, unspecified portion of scaphoid, initial encounter- Primary documented in this encounter Care Teams Pediatrics Hospitalist Relationship Specialty Start Date End Date Timo German MD [address] [place] [address] PCP - General 04/16/17 06/17/20 documented as of this encounter
--- OUTSIDE RECORDS SUMMARY | 2024-06-10 07:09 | XMS_ITS | Encounter Summary ---
Author Organization [facility] Address [address] [place] [address] Phone Care Team Providers Care Title I Director Name Role Phone Timo German MD Primary Care Provider [phone] Reason for Referral * Diagnostic Imaging (Routine) - Closed Specialty Diagnoses / Procedures Referred By Bushraac t Referred To Contact Diagnoses Left wrist pain Procedures X-ray wrist left 3+ views Sebastián Bertrand MD Phone: tel: fax: [facility] Referral ID Status Reason Start Date Expiration Date Visits Re quested Visits Authorized [id number] Closed 02/25/2018 09/06/2019 1 1 Encounter Details Date Type Department Care Team (Late st Contact Info) Description 02/25/2018 10:20 AM CDT Office Visit [facility] Orthopaedic Surgery [address] [place] [address] Sebastián Bertrand MD [address] [place] [address] Left wrist pain (Primary Dx); Closed displaced fracture of scaphoid of left [...] on file 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 Sebastián Bertrand M.D. Large Animal Veterinarian Hand and Upper Extremity [facility] Orthopedics Dr. Bertrand is dictating using speech recognition software. Machine Staker variances may occur. * Cathy Castaneda MS - 02/25/2018 10:20 AM CDTAssociated Order(s): ORTHO CASTING/SPLINTING Post-Procedure Diagnose(s): Left wrist pain Ortho Casting/Splinting Documentation Date/Time: 02/25/2018 12:09 PM Performed by: CATHY CASTANEDA Authorized by: SEBASTIÁN BERTRAND Sensation: Normal Skin Condition: Clean, dry, and intact Pa/Sutures Removed: No Pin Pulled: No Cast Removed: Yes (By Marie Nayak) Cast Applied: Yes Location: Arm Arm: L lower arm Spint type: Thumb spica splint Supplies: Cotton Padding, cotton stocking/sleeve, elastic banage(s) and plaster Number of plaster rolls used: 7 Capillary Refill: Normal Patient tolerance of procedure: Tolerated well, no immediate complications documented in this encounter Plan of Treatment Not on file documented as of this encounter Procedures Procedure Name Priority Date/Time Associated Diagnosis Comments ORTHO CASTING/SPLINTING Routine 02/25/2018 10:20 AM CDT Left wrist pain documented in this encounter Results * X-ray wrist left 3+ views (02/25/2018 11:31 AM CDT) Anatomical Region Laterality Modality Upper Extremities, Wrist Left Compute d Radiography 02/25/2018 11:3 5 AM CDT Impressions 02/25/2018 11:35 AM CDT Comminuted fracture of the left scaphoid waist. Electronically signed by: Jaden Vizcaino M.D. Narrative 02/25/2018 11:35 AM CDT EXAMINATION: Left wrist 3 or more views HISTORY: ??Left scaphoid fracture FINDINGS: A 4 view examination of the left wrist includes a bilateral pronated visual display manager projection of both wrists. There are no prior studies available for comparison. There is a comminuted fracture of the scaphoid waist. A butterfly fragment is displaced slightly radially.There is no humpback deformity. Joint spaces are normal. Mild positive ulnar variance is present in the wrist. Procedure Note Jaden Vizcaino MD - 02/25/2018 EXAMINATION: Left wrist 3 or more views HISTORY: Left scaphoid fracture FINDINGS: A 4 view examination of the left wrist includes a bilateral pronated visual display manager projection of both wrists. There are no prior studies available for comparison. There is a comminuted fracture of the scaphoid waist. A butterfly fragment is displaced slightly radially.There is no humpback deformity. Joint spaces are normal. Mild positive ulnar variance is present in the wrist. IMPRESSION: Comminuted fracture of the left scaphoid waist. Electronically signed by: Jaden Vizcaino M.D. us Sebastián Bertrand MD IMG XR PROCEDURES Final R esult * Ortho Casting/Splinting Documentation (02/25/2018 10:20 AM CDT) Cathy Luke MS - 02/25/2018 10:20 AM CDT Cathy Castaneda MS ? 02/25/2018 12:10 PM Ortho Casting/Splinting Documentation Date/Time: 02/25/2018 12:09 PM Performed by: CATHY CASTANEDA Authorized by: SEBASTIÁN BERTRAND Sensation: ??Normal Skin Condition: ??Clean, dry, and intact Pa/Sutures Removed: No ?? Pin Pulled: No ?? Cast Removed: Yes (By Marie Nayak) ?? Cast Applied: Yes ?? Location: ??Arm Arm: ??L lower arm Spint type: ??Thumb spica splint Supplies: ??Cotton Padding, cotton stocking/sleeve, elastic banage(s) and plaster Number of plaster rolls used: ??7 Capillary Refill: ??Normal Patient tolerance of procedure: ??Tolerated well, no immediate complications us Sebastián Bertrand MD IN CLINIC/BEDSIDE ORDERAB LES Final Result documented in this encounter Visit Diagnoses Diagnosis Left wrist pain- Primary Pain in joint, forearm Closed displaced fracture of scaphoid of left wrist, unspecified portion of scaphoid, initial encounter Left wrist pain Pain in joint, forearm documented in this encounter Historical Medications * This list may reflect changes made after this encounter. levothyroxine sodium (TIROSINT) 50 mcg capsule 125 mcg early childhood education coordinator before breakfast. added in this encounter Care Teams Title I Director Relationship Specialty Start Date End Date Timo German MD [facility] [place] [address] PCP - General 04/16/17 06/17/20 documented as of this encounter
--- OUTSIDE RECORDS SUMMARY | 2024-06-10 07:09 | XMS_ITS | Encounter Summary ---
Author Organization [facility] Healthcare Address [address] [place] [address] Care Team Providers Care Amphibian Crewmember Name Role Phone Timo German MD Primary Care Provider [phone] Reason for Visit * Reason Comments OP Infusion * Episode Based Medications (Routine) - Closed Specialty Diagnoses / Procedures Referred By Contac t Referred To Contact Diagnoses Crohn's disease of large intestine without complication (CMS/HCC) (HCC) Procedures [place] INFLIXIMAB NOT BIOSIMIL 10MG Myles Mahajan, DO [address] [place] [place] [address] Phone: tel: fax: [facility] [address] [place] [phone] Phone: tel: fax: Referral ID Status Reason Start Date Expiration Date Visits Re quested Visits Authorized [id number] Closed 08/22/2017 08/22/2018 1 1 Encounter Details Date Type Department Care Team (Late st Contact Info) Description 09/07/2017 1:00 PM CDT Infusion [facility] [address] [place] [phone] Crohn's disease of large intestine without complication (CMS/HCC) (Primary Dx) Social History Tobacco Use Types Packs/Day Years Used Date Smoking Tobacco: Never Assessed Comments Unknown Sex and Gender Information Value Date Recorded Sex Assigned at Not on file 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 Gender Identity Not on file Sexual Orientation Not on file documented as of this encounter Last Filed Vital Signs Vital Sign Reading Time Taken Comments Blood Pressure 128/76 09/07/2017 12:56 PM CDT Pulse 107 09/07/2017 12:56 PM CDT Temperature 37.2 ??C (99 ??F) 09/07/2017 12:56 PM CDT Respiratory Rate - - Oxygen Saturation - - Inhaled Oxygen Concentration - - Weight 77.1 kg (170 lb) 09/07/2017 12:56 PM CDT Height - - Body Mass Index 31.09 04/23/2017 2:34 PM FILLING TECHNICIAN documented in this encounter Progress Notes * Marian Vera [facility] - 09/07/2017 1:00 PM CDT Infliximab 10 mg/kg dose rounded from 771 mg to 750 mg per [facility] P and T Committee rounding guidelines. Marian Vera RPh 09/07/2017 documented in this encounter Nursing Notes * Marry Carvajal RN - 09/07/2017 1:00 PM CDT Pt here for tx. VSS. States she is feeling well other than some abd cramping which happens just before she's due for tx. Denies any recent illnesses or infections. Premeds given. IV inserted, +blood return. Tolerated infusion. IV discontinued. Schedule confirmed. documented [...] 650 mg 650 mg, oral, Once, On Sun09/07/17 at 1330, For 1 dose, Please give 30 minutes prior to infusion for infusion reaction prophylaxis.Indications:Crohn 's disease of large intestine without complication (CMS/HCC) (HCC) Given 09/07/2017 1:02 PM CDT 650 mg diphenhydrAMINE (BENADRYL) tab/cap 25 mg 25 mg, oral, Once, On Sun09/07/17 at 1330, For 1 dose, Please give 30 minutes prior to infusion for infusion reaction prophylaxis.Indications:Crohn 's disease of large intestine without complication (CMS/HCC) (HCC) Given 09/07/2017 1:02 PM CDT 25 mg inFLIXimab (REMICADE) 750 mg in sodium chloride 0.9% 250 mL IVPB 750 mg, intravenous, Once, On Sun09/07/17 at 1330, For 1 dose, Infuse with filter tubing, [...] then end therapy., FOR REACTIONS-STOP INFUSION. Use filter 1.2 micron or lessIndications:Crohn's disease of large intestine without complication (CMS/HCC) (HCC) New Bag 09/07/2017 1:42 PM CDT 750 mg sodium chloride 0.9% infusion 30 mL/hr, intravenous, As needed, As needed as back up fluid for infusions, Starting on Sun09/07/17 at 1254Indications:Crohn's disease of large intestine without complication (CMS/HCC) (HCC) New Bag 09/07/2017 1:02 PM CDT 30 mL/hr 30 mL/hr documented in this encounter Care Teams Amphibian Crewmember Relationship Specialty Start Date End Date Timo German MD [address] [place] [id number] PCP - General 04/16/17 06/17/20 documented as of this encounter
--- OUTSIDE RECORDS SUMMARY | 2024-06-10 07:09 | XMS_ITS | Encounter Summary ---
Author Organization [facility] Healthcare Address [address] [place] [address] Care Team Providers Care Nuclear Engineering Technician Name Role Phone Timo German MD Primary Care Provider [phone] Encounter Details Date Type Department Care Team (Latest Contact Info) Description 05/17/2017 12:18 PM QM NURSE - 05/17/2017 11:59 PM QM NURSE Hospital Encounter [facility] OP INTERIM [phone] Myles Mahajan, DO [address] [place] [address] Discharge Disposition: Discharge to home or self care Social History Tobacco Use Types Packs/Day Years Used Date Smoking Tobacco: Never Assessed Comments Unknown Sex and Gender Information Value Date Recorded Sex Assigned at Not on file 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
--- OUTSIDE RECORDS SUMMARY | 2024-06-10 07:09 | XMS_ITS | Encounter Summary ---
Author Organization [facility] Healthcare Address [address] [place] [address] Care Team Providers Care Pharmacy Laboratory Technician Name Role Phone Timo German MD Primary Care Provider [phone] Reason for Visit * Reason Comments Chemotherapy Remicade * Episode Based Medications (Routine) - Closed Specialty Diagnoses / Procedures Referred By Contac t Referred To Contact Diagnoses Crohn's disease of large intestine without complication (CMS/HCC) (HCC) Procedures [place] INFLIXIMAB NOT BIOSIMIL 10MG Myles Mahajan, DO [address] [place] [address] Phone: tel: fax: [facility] [address] [place] [phone] Phone: tel: fax: Referral ID Status Reason Start Date Expiration Date Visits Re quested Visits Authorized [id number] Closed 08/22/2017 08/22/2018 1 1 Encounter Details Date Type Department Care Team (Late st Contact Info) Description 04/05/2018 8:30 AM CDT Infusion [facility] [address] [place] [phone] Crohn's disease of large intestine without complication (CMS/HCC) (Primary Dx) Social History Tobacco Use Types Packs/Day Years Used Date Smoking Tobacco: Former Smokeless Tobacco: Never Alcohol Use Standard Drinks/Week Comments Yes 1 (1 standard drink = 0.6 oz pur e alcohol) Comments Unknown Sex and Gender Information Value Date Recorded Sex Assigned at Not on file 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 Gender Identity Not on file Sexual Orientation Not on file documented as of this encounter Last Filed Vital Signs Vital Sign Reading Time Taken Comments Blood Pressure 145/99 04/05/2018 10:06 AM CDT Pulse 83 04/05/2018 10:06 AM CDT Temperature 35.9 ??C (96.7 ??F) 04/05/2018 10:06 AM C DT Respiratory Rate 18 04/05/2018 10:06 AM CDT Oxygen Saturation - - Inhaled Oxygen Concentration - - Weight 77.2 kg (170 lb 3.2 oz) 04/05/2018 10:06 AM CDT Height - - Body Mass Index 32.16 02/25/2018 2:40 PM CDT documented in this encounter Nursing Notes * [place]ia Hsieh RN - 04/05/2018 8:30 AM CDT Patient arrives for treatment. Patient has no complaints. Patient stated she fell and had surgery on her left arm on 02/25. Patient's arm in cast. MD aware. IV started, positive for blood return and flushing well. Premeds given. Remicade titrated per protocol. Patient tolerated well. IV removed and pressure dressing applied. Schedule confirmed. Patient discharged ambulatory. [facility] documented in this encounter Plan of Treatment Not on file documented as of this encounter Visit Diagnoses Diagnosis Crohn's disease of large intestine without complication (CMS/HCC) ([facility])- Primary documented in this encounter Administered Medications Inactive Administered Medications - up to 3 most recent administrations Medication Order MAR Action Action Date Dose Rate Site acetaminophen (TYLENOL) tablet 650 mg 650 mg, oral, Once, On Sun04/05/18 at 0915, For 1 dose, Please give 30 minutes prior to infusion for infusion reaction prophylaxis.Indications:Crohn 's disease of large intestine without complication (CMS/HCC) (HCC) Given 04/05/2018 8:43 AM CDT 650 mg diphenhydrAMINE (BENADRYL) tab/cap 25 mg 25 mg, oral, Once, On Sun04/05/18 at 0915, For 1 dose, Please give 30 minutes prior to infusion for infusion reaction prophylaxis.Indications:Crohn 's disease of large intestine without complication (CMS/HCC) (HCC) Given 04/05/2018 8:43 AM CDT 25 mg inFLIXimab (REMICADE) 800 mg in sodium chloride 0.9% 250 mL IVPB 800 mg, intravenous, Administer over 2 Hours, Once, On Sun04/05/18 at 0915, For 1 dose, Infuse with [...] intestine without complication (CMS/HCC) (HCC) New Bag 04/05/2018 9:19 AM CDT 800 mg sodium chloride 0.9% flush 10 mL 10 mL, intravenous, As needed, line care, Flush pre and post IV catheter use., Starting on Sun04/05/18 at 0839Indications:Crohn's disease of large intestine without complication (CMS/HCC) (HCC) Given 04/05/2018 11:30 AM CDT 10 mL sodium chloride 0.9% infusion 30 mL/hr, intravenous, As needed, As needed as back up fluid for infusions, Starting on Sun04/05/18 at 0839Indications:Crohn's disease of large intestine without complication (CMS/HCC) (HCC) New Bag 04/05/2018 8:43 AM CDT 30 mL/hr 30 mL/hr documented in this encounter Orders Nursing Count Last Ordered Date First Orde red Date HEIGHT AND WEIGHT 1 04/05/2018 MAINTAIN VITAL SIGNS 1 04/05/2018 NURSING COMMUNICATION 1 04/05/2018 documented in this encounter Care Teams Pharmacy Laboratory Technician Relationship Specialty Start Date End Date Timo German MD [address] [place] [address] PCP - General 04/16/17 06/17/20 documented as of this encounter
--- OUTSIDE RECORDS SUMMARY | 2024-06-10 07:09 | XMS_ITS | Encounter Summary ---
Author Organization [facility] Healthcare Address [address] [place] [address] Care Team Providers Care Bottle House Cleaners Supervisor Name Role Phone Timo German MD Primary Care Provider [phone] Encounter Details Date Type Department Care Team (Late st Contact Info) Description 04/04/2018 Orders Only [facility] [place] [address] Christine Denton, [facility] Social History Tobacco Use Types Packs/Day Years Used Date Smoking Tobacco: Former Smokeless Tobacco: Never Alcohol Use Standard Drinks/Week Comments Yes 1 (1 standard drink = 0.6 oz pur e alcohol) Comments Unknown Sex and Gender Information Value Date Recorded Sex Assigned at Not on file 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
--- OUTSIDE RECORDS SUMMARY | 2024-06-10 07:09 | XMS_ITS | Encounter Summary ---
Author Organization [facility] Healthcare Address [address] [place] [address] Care Team Providers Care Dental Laboratory Worker Name Role Phone Timo German MD Primary Care Provider [phone] Reason for Visit * Reason Comments OP Infusion remicade * Episode Based Medications (Routine) - Closed Specialty Diagnoses / Procedures Referred By Contac t Referred To Contact Diagnoses Crohn's disease of large intestine without complication (CMS/HCC) (HCC) Procedures [place] INFLIXIMAB NOT BIOSIMIL 10MG Myles Mahajan, DO [address] [place] [address] Phone: tel: fax: [facility] [address] [place] [phone] Phone: tel: fax: Referral ID Status Reason Start Date Expiration Date Visits Re quested Visits Authorized [id number] Closed 08/22/2017 08/22/2018 1 1 Encounter Details Date Type Department Care Team (Late st Contact Info) Description 08/10/2017 1:00 PM SERVICE CREW LEADER Infusion [facility] [address] [place] [phone] Crohn's disease of large intestine without complication (CMS/HCC) (Primary Dx) Social History Tobacco Use Types Packs/Day Years Used Date Smoking Tobacco: Never Assessed Comments Unknown Sex and Gender Information Value Date Recorded Sex Assigned at Not on file 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 Gender Identity Not on file Sexual Orientation Not on file documented as of this encounter Last Filed Vital Signs Vital Sign Reading Time Taken Comments Blood Pressure 112/71 08/10/2017 1:10 PM SERVICE CREW LEADER Pulse 86 08/10/2017 1:10 PM SERVICE CREW LEADER Temperature 37 ??C (98.6 ??F) 08/10/2017 1:10 PM SERVICE CREW LEADER Respiratory Rate - - Oxygen Saturation - - Inhaled Oxygen Concentration - - Weight 75.3 kg (166 lb) 08/10/2017 1:10 PM SERVICE CREW LEADER Height - - Body Mass Index 30.36 04/23/2017 2:34 PM SERVICE CREW LEADER documented in this encounter Nursing Notes * Albania Hsieh RN - 08/10/2017 1:00 PM CST Patient arrives for treatment. Patient complains of abdominal pain rated 5/10. IV started, positivefor blood return and flushing well. Premeds given. Remicade infused. Patient tolerated well. IV removed and pressure dressing applied. Schedule confirmed. Patient discharged ambulatory. [facility] ICE CREW LEADER documented in this encounter Plan of Treatment Not on file documented as of this encounter Visit Diagnoses Diagnosis Crohn's disease of large intestine without complication (CMS/HCC) (HCC)- Primary documented in this encounter Administered Medications Inactive Administered Medications - up to 3 most recent administrations Medication Order MAR Action Action Date Dose Rate Site acetaminophen (TYLENOL) tablet 650 mg 650 mg, oral, Once, On Sun08/10/17 at 1345, For 1 dose, Please give 30 minutes prior to infusion for infusion reaction prophylaxis.Indications:Crohn 's disease of large intestine without complication (CMS/HCC) (HCC) Given 08/10/2017 1:23 PM SERVICE CREW LEADER 650 mg diphenhydrAMINE (BENADRYL) tab/cap 25 mg 25 mg, oral, Once, On Sun08/10/17 at 1345, For 1 dose, Please give 30 minutes prior to infusion for infusion reaction prophylaxis.Indications:Crohn 's disease of large intestine without complication (CMS/HCC) (HCC) Given 08/10/2017 1:23 PM SERVICE CREW LEADER 25 mg inFLIXimab (REMICADE) 750 mg in sodium chloride 0.9% 250 mL IVPB 750 mg, intravenous, Once, On Sun08/10/17 at 1345, For 1 dose, Infuse with filter tubing, [...] intestine without complication (CMS/HCC) ([facility]) New Bag 08/10/2017 2:05 PM SERVICE CREW LEADER 750 mg sodium chloride 0.9% flush 10 mL 10 mL, intravenous, As needed, line care, Flush pre and post IV catheter use., Starting on Sun08/10/17 at 1313Indications:Crohn's disease of large intestine without complication (CMS/HCC) ([facility]) Given 08/10/2017 4:10 PM SERVICE CREW LEADER 10 mL sodium chloride 0.9% infusion 30 mL/hr, intravenous, As needed, As needed as back up fluid for infusions, Starting on Sun08/10/17 at 1313Indications:Crohn's disease of large intestine without complication (CMS/HCC) ([facility]) New Bag 08/10/2017 1:10 PM SERVICE CREW LEADER 30 mL/hr 30 mL/hr documented in this encounter Historical Medications * This list may reflect changes made after this encounter. zolpidem (AMBIEN) 5 mg tabletIndication s:Sleep-Onset Insomnia Take 10 mg by mouth nightly as needed for sleep. amitriptyline (ELAVIL) 25 mg tablet Take 1 tablet (25 mg total) by mouth nightly losartan (COZAAR) 50 mg tablet Take 50 mg by mouth distribution center manager before breakfast. amLODIPine (NORVASC) 5 mg tablet Take 1 tablet (5 mg total) by mouth distribution center manager before breakfast dicyclomine (BENTYL) 20 mg tablet Take 1 tablet (20 mg total) by mouth every 6 (six) hours topiramate (TOPAMAX) 50 mg tablet Take 1 tablet (50 mg total) by mouth 2 (two) times a day hydroCHLOROthiaz kleber (HYDRODIURIL) 25 mg tablet Take 1 tablet (25 mg total) by mouth distribution center manager before breakfast terbinafine (LamiSIL) 250 mg tablet Take 250 mg by mouth daily. 8 added in this encounter Orders Nursing Count Last Ordered Date First Orde red Date HEIGHT AND WEIGHT 1 08/10/2017 MAINTAIN VITAL SIGNS 1 08/10/2017 documented in this encounter Care Teams Dental Laboratory Worker Relationship Specialty Start Date End Date Timo German MD [address] [place] [address] PCP - General 04/16/17 06/17/20 documented as of this encounter
--- OUTSIDE RECORDS SUMMARY | 2024-06-10 07:09 | XMS_ITS | Encounter Summary ---
Author Organization [facility] Healthcare Address [address] [place] [address] Care Team Providers Care Seasonal Customer Service Associate Name Role Phone Timo German MD Primary Care Provider [phone] Reason for Visit * Reason Comments OP Infusion remicade * Episode Based Medications (Routine) - Closed Specialty Diagnoses / Procedures Referred By Contac t Referred To Contact Diagnoses Crohn's disease of large intestine without complication (CMS/HCC) (HCC) Procedures CO INFLIXIMAB NOT BIOSIMIL 10MG Myles Mahajan, DO [address] [place] [address] Phone: tel: fax: [facility] [address] [place] [phone] Phone: tel: fax: Referral ID Status Reason Start Date Expiration Date Visits Re quested Visits Authorized [id number] Closed 08/22/2017 08/22/2018 1 1 Encounter Details Date Type Department Care Team (Late st Contact Info) Description 02/01/2018 12:00 PM CDT Infusion [facility] [address] [place] [phone] Crohn's disease of large intestine without complication (CMS/HCC) (Primary Dx) Social History Tobacco Use Types Packs/Day Years Used Date Smoking Tobacco: Never Assessed Comments Unknown Sex and Gender Information Value Date Recorded Sex Assigned at Not on file 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:53 AM SPICE GRINDER Gender Identity Not on file Sexual Orientation Not on file documented as of this encounter Last Filed Vital Signs Vital Sign Reading Time Taken Comments Blood Pressure 114/73 02/01/2018 12:13 PM CDT Pulse 67 02/01/2018 12:13 PM CDT Temperature 37.2 ??C (98.9 ??F) 02/01/2018 12:13 PM C DT Respiratory Rate - - Oxygen Saturation - - Inhaled Oxygen Concentration - - Weight 75.3 kg (166 lb) 02/01/2018 12:13 PM CDT Height - - Body Mass Index 30.36 04/23/2017 2:34 PM SPICE GRINDER documented in this encounter Nursing Notes * Mehgan Gray RN - 02/01/2018 12:00 PM CDT Pt arrives for infusion, reports feeling well no recent fevers or infections,no concerns. PIV started +blood, flushing well. Premeds given. Infusion tolerated well. Pt schedule confirmed and card given. PIV removed, pressure dressing applied. Pt left ambulatory. PMJ. documented in this encounter Plan of Treatment Not on file documented as of this encounter Visit Diagnoses Diagnosis Crohn's disease of large intestine without complication (CMS/HCC) (HCC)- Primary documented in this encounter Administered Medications Inactive Administered Medications - up to 3 most recent administrations Medication Order MAR Action Action Date Dose Rate Site acetaminophen (TYLENOL) tablet 650 mg 650 mg, oral, Once, On Sun02/01/18 at 1245, For 1 dose, Please give 30 minutes prior to infusion for infusion reaction prophylaxis.Indications:Crohn 's disease of large intestine without complication (CMS/HCC) (HCC) Given 02/01/2018 12:27 PM CDT 650 mg diphenhydrAMINE (BENADRYL) tab/cap 25 mg 25 mg, oral, Once, On Sun02/01/18 at 1245, For 1 dose, Please give 30 minutes prior to infusion for infusion reaction prophylaxis.Indications:Crohn 's disease of large intestine without complication (CMS/HCC) (HCC) Given 02/01/2018 12:27 PM CDT 25 mg inFLIXimab (REMICADE) 750 mg in sodium chloride 0.9% 250 mL IVPB 750 mg (rounded from 753 mg = 10 mg/kg ? 75.3 kg), intravenous, Administer over 2 Hours, Once, On Sun02/01/18 at 1245, For 1 dose, Infuse with filter tubing [...] intestine without complication (CMS/HCC) (HCC) New Bag 02/01/2018 12:52 PM CDT 750 mg sodium chloride 0.9% infusion 30 mL/hr, intravenous, As needed, As needed as back up fluid for infusions, Starting on Sun02/01/18 at 1214Indications:Crohn's disease of large intestine without complication (CMS/HCC) (HCC) New Bag 02/01/2018 12:27 PM CDT 30 mL/hr 30 mL/hr documented in this encounter Care Teams Seasonal Customer Service Associate Relationship Specialty Start Date End Date Timo German MD [address] [place] [id number] PCP - General 04/16/17 06/17/20 documented as of this encounter
--- OUTSIDE RECORDS SUMMARY | 2024-06-10 07:09 | XMS_ITS | Encounter Summary ---
Author Organization [facility] Healthcare Address [address] [place] [address] Care Team Providers Care Well Digger Name Role Phone Timo German MD Primary Care Provider [phone] Encounter Details Date Type Department Care Team (Late st Contact Info) Description 03/04/2018 Orders Only [facility] [place] [phone] Nelly Watt, [facility] Social History Tobacco Use Types Packs/Day Years Used Date Smoking Tobacco: Former Smokeless Tobacco: Never Alcohol Use Standard Drinks/Week Comments Yes 1 (1 standard drink = 0.6 oz pur e alcohol) Comments Unknown Sex and Gender Information Value Date Recorded Sex Assigned at Not on file 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:53 AM SALES MERCHANDISE ASSOCIATE Gender Identity Not on file Sexual Orientation Not on file documented as of this encounter Plan of Treatment Not on file documented as of this encounter Visit Diagnoses Not on filedocumented in this encounter Care Teams Well Digger Relationship Specialty Start Date End Date Timo German MD [facility] [place] [address] PCP - General 04/16/17 06/17/20 documented as of this encounter
--- OUTSIDE RECORDS SUMMARY | 2024-06-10 07:09 | XMS_ITS | Encounter Summary ---
Author Organization [facility] Healthcare Address [address] [place] [address] Care Team Providers Care Conservation Technician Name Role Phone Timo German MD Primary Care Provider [phone] Encounter Details Date Type Department Care Team (Late st Contact Info) Description 02/26/2018 7:30 AM CDT - 02/26/2018 10:05 AM CDT Surgery [facility] at [facility] [address] [place] [address] Sebastián Bertrand MD [address] [facility] [address] [place] [address] OPEN REDUCTION INTERNAL FIXATION LEFT SCAPHOID FRACTURE - 1 HR Surgery Details Date/Time Status Location OR Service Patient Class Case Class Case Type Trauma Case? 02/26/2018 7:30 AM Posted [facility] Operating Room AR OR 2 Orthopaedics Outpatient Elective Panel 1 Procedure LRB Anes Op Region Wound Class Comments OPEN REDUCTION INTERNAL FIXA TION LEFT SCAPHOID FRACTURE - 1 HR Left General Arm Lower Class I - Clean BONE GRAFT - SCAPHOID Left General Arm Lower Class I - Clean Surgeon Surgeon Role Service Panel Ramon Mosquera MD [facility] 1 Sebastián Bertrand MD Primary Orthopaedics 1 Special Needs K-WIRES, MINI ACUTRAK SCREWS, CURETTES, OSTEOTOME documented in this encounter Social History Tobacco Use Types Packs/Day Years Used Date Smoking Tobacco: Former Smokeless Tobacco: Never Tobacco Cessation:Counseling Given: No Alcohol Use Standard Drinks/Week Comments Yes 1 (1 standard drink = 0.6 oz pur e alcohol) Comments Unknown Sex and Gender Information Value Date Recorded Sex Assigned at Not on file 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:53 AM STUNNER AND SHACKLER Gender Identity Not on file Sexual Orientation [...] this encounter Discharge Instructions * Discharge Instructions* Sebastián Bertrand MD - 02/26/2018 7:28 AM CDT POSTOPERATIVE [...] OFFICE CONTACT NUMBERS ??? During business hours (Sun-Fri 8am-4:30pm) o Dr. Bertrand's Lab Support Tech: VINICIO LI phone: [phone] ??? After hours/weekend (Emergencies Only; no medication refills) o [facility]: [phone] or toll-free documented in this encounter Medications at Time of Discharge amitriptyline (ELAVIL) 25 mg tablet Take 1 tablet (25 mg total) by mouth nightly amLODIPine (NORVASC) 5 mg tablet Take 1 tablet (5 mg total) by mouth receiving room clerk before breakfast dicyclomine (BENTYL) 20 mg tablet Take 1 tablet (20 mg total) by mouth every 6 (six) hours hydroCHLOROthiaz kleber (HYDRODIURIL) 25 mg tablet Take 1 tablet (25 mg total) by mouth receiving room clerk before breakfast levothyroxine sodium (TIROSINT) 50 mcg capsule 125 mcg receiving room clerk before breakfast. losartan (COZAAR) 50 mg tablet Take 50 mg by mouth receiving room clerk before breakfast. meloxicam (MOBIC) 7.5 mg tablet [...] in this encounter H&P Notes * Sebastián Bertrand MD - 02/26/2018 7:11 AM CDT I [...] next mutually agreeable date. Sebastián Bertrand M.D. Care Services Manager Hand and Upper Extremity [facility] Dr. Bertrand is dictating using speech recognition software. Radio Division Lieutenant variances may occur. * Ramon Mosquera MD [...] next mutually agreeable date. Sebastián Bertrand M.D. Care Services Manager Hand and Upper Extremity [facility] Dr. Bertrand is dictating using speech recognition software. Radio Division Lieutenant variances may occur. documented in this encounter Miscellaneous Notes * Op Note - Sebastián Bertrand MD - 02/26/2018 7:37 AM CDT OPERATIVE REPORT SURGEON Sebastián Bertrand MD, MPH AERIAL LINEMAN Ramon Mosquera MD PREOPERATIVE and POSTOPERATIVE DIAGNOSES [...] Preoperative Assessment and Planning CPAP Clinic Location: [facility] The night before your surgery: * Do [...] your surgery: Vitamin E, Fish Oil (Lovaza, [place] 3), Herbal medicines, Diet Pills ?? If [...] FALL RISK wrist band while attending additional [facility] appointments. Placed yellow FALL RISK wrist band [...] of scaphoid bone of left wrist- Primary Closed displaced fracture of scaphoid of left wrist, unspecified portion of scaphoid, initial encounter documented in this encounter Admitting Diagnoses Diagnosis [...] 8:52 AM CDT 1 tablet sodium chloride 0.9 % irrigation As needed, Starting on Sun02/26/18 at 0753, Intra-Op Given 02/26/2018 7:53 AM CDT 500 mL Surgical Site sodium chloride 0.9% flush 0.5-20 mL 0.5-20 mL, intra-catheter, As needed, line care, Starting on Sun02/26/18 at 0743, Pre-Op, Flush volume based on line type and size. Flush before and after each use. , Indications: FlushingIndications:Flush ing documented in this encounter Discontinued Medications Medication [...] preservative free injection - ADS Override Pull 02/26/2018 meperidine (DEMEROL) preserv ative free injection 12.5 mg 1 02/26/2018 naloxone (NARCAN) 0.4 mg/mL injection 0.04-0.4 mg 1 02/26/2018 sodium chloride 0.9% flush 0.5-20 mL 02/09 documented in this encounter Care Teams Conservation Technician Relationship Specialty Start Date End Date Timo German MD [address] [place] [address] PCP - General 04/16/17 06/17/20 documented as of this encounter
--- OUTSIDE RECORDS SUMMARY | 2024-06-10 07:09 | XMS_ITS | Encounter Summary ---
Author Organization [facility] Healthcare Address [address] [place] [address] Care Team Providers Care Aircraft Rigging And Controls Mechanic Name Role Phone Timo German MD Primary Care Provider [phone] Reason for Referral * Diagnostic Imaging (Routine) - Closed Specialty Diagnoses / Procedures Referred By Contac t Referred To Contact Diagnoses Left wrist pain Procedures X-ray wrist left 3+ views Sebastián Bertrand MD Phone: tel: fax: [facility] Referral ID Status Reason Start Date Expiration Date Visits Re quested Visits Authorized [id number] Closed 02/25/2018 09/06/2019 1 1 Reason for Visit * Diagnostic Imaging (Routine) - Closed Specialty Diagnoses / Procedures Referred By Contac t Referred To Contact Diagnoses Left wrist pain Procedures X-ray wrist left 3+ views Sebastián Bertrand MD Phone: tel: fax: [facility] Referral ID Status Reason Start Date Expiration Date Visits Re quested Visits Authorized [id number] Closed 02/25/2018 09/06/2019 1 1 Encounter Details Date Type Department Care Team (Late st Contact Info) Description 02/25/2018 11:22 AM CDT - 02/25/2018 11:59 PM CDT Hospital Encounter [facility] at [facility] [address] [place] [address] Sebastián Bertrand MD [address] [facility] [address] [address] [place] [address] Left wrist pain Discharge Disposition: Discharge to home or self care Social History Tobacco Use Types Packs/Day Years Used Date Smoking Tobacco: Former Smokeless Tobacco: Never Alcohol Use Standard Drinks/Week Comments Yes 1 (1 standard drink = 0.6 oz pur e alcohol) Comments Unknown Sex and Gender Information Value Date Recorded Sex Assigned at Not on file 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:53 AM INSURANCE UNDERWRITER SALES Gender Identity Not on file Sexual Orientation Not on file documented as of this encounter Medications at Time of Discharge amitriptyline (ELAVIL) 25 mg tablet Take 1 tablet (25 mg total) by mouth nightly amLODIPine (NORVASC) 5 mg tablet Take 1 tablet (5 mg total) by mouth functional manager before breakfast dicyclomine (BENTYL) 20 mg tablet Take 1 tablet (20 mg total) by mouth every 6 (six) hours hydroCHLOROthiaz kleber (HYDRODIURIL) 25 mg tablet Take 1 tablet (25 mg total) by mouth functional manager before breakfast levothyroxine sodium (TIROSINT) 50 mcg capsule 125 mcg functional manager before breakfast. losartan (COZAAR) 50 mg tablet Take 50 mg by mouth functional manager before breakfast. meloxicam (MOBIC) 7.5 mg tablet [...] VIEWS Schedule Routine, Read Routine (OP Routine) 02/25/2018 11:31 AM CDT Left wrist pain documented in [...] the left wrist includes a bilateral pronated yard person projection of both wrists. There are no [...] the left wrist includes a bilateral pronated yard person projection of both wrists. There are no prior studies available for comparison. There is a comminuted fracture of the scaphoid waist. A butterfly fragment is displaced slightly radially.There is no humpback deformity. Joint spaces are normal. Mild positive ulnar variance is present in the wrist. IMPRESSION: Comminuted fracture of the left scaphoid waist. Electronically signed by: Jaden Vizcaino M.D. Sebastián Bertrand MD IMG XR PROCEDURES Final R esult documented in this encounter Visit Diagnoses Diagnosis Left wrist pain Pain in joint, forearm documented in this encounter Care Teams Aircraft Rigging And Controls Mechanic Relationship Specialty Start Date End Date Timo German MD [address] [place] [address] PCP - General 04/16/17 06/17/20 documented as of this encounter
--- OUTSIDE RECORDS SUMMARY | 2024-06-10 07:09 | XMS_ITS | Encounter Summary ---
Author Organization [facility] Healthcare Address [address] [place] [address] Care Team Providers Care Boatbuilder Wood Name Role Phone Timo German MD Primary Care Provider [phone] Reason for Visit * Reason Comments OP Infusion * Episode Based Medications (Routine) - Closed Specialty Diagnoses / Procedures Referred By Contac t Referred To Contact Diagnoses Crohn's disease of large intestine without complication (CMS/HCC) (HCC) Procedures [place] INFLIXIMAB NOT BIOSIMIL 10MG Myles Mahajan, DO [address] [place] [address] Phone: tel: fax: [facility] [address] [place] [phone] Phone: tel: fax: Referral ID Status Reason Start Date Expiration Date Visits Re quested Visits Authorized [id number] Closed 08/22/2017 08/22/2018 1 1 Encounter Details Date Type Department Care Team (Late st Contact Info) Description 10/05/2017 11:30 AM CDT Infusion [facility] [address] [place] [phone] Crohn's disease of large intestine without complication (CMS/HCC) (Primary Dx) Social History Tobacco Use Types Packs/Day Years Used Date Smoking Tobacco: Never Assessed Comments Unknown Sex and Gender Information Value Date Recorded Sex Assigned at Not on file 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:53 AM SPECIAL ORDER JEWELER Gender Identity Not on file Sexual Orientation Not on file documented as of this encounter Last Filed Vital Signs Vital Sign Reading Time Taken Comments Blood Pressure 119/87 10/05/2017 11:30 AM CDT Pulse 83 10/05/2017 11:30 AM CDT Temperature 36.9 ??C (98.5 ??F) 10/05/2017 11:30 AM C DT Respiratory Rate - - Oxygen Saturation - - Inhaled Oxygen Concentration - - Weight 76.7 kg (169 lb) 10/05/2017 11:30 AM CDT Height - - Body Mass Index 30.91 04/23/2017 2:34 PM SPECIAL ORDER JEWELER documented in this encounter Nursing Notes * Marry Carvajal RN - 10/05/2017 11:30 AM CDT Pt here for tx. VSS. States she is feeling well w/ no complaints. Denies recent illnesses or infections. IV placed, +blood return. Premeds given. [...] 650 mg 650 mg, oral, Once, On Sun10/05/17 at 1200, For 1 dose, Please give 30 minutes prior to infusion for infusion reaction prophylaxis.Indications:Croh n's disease of large intestine without complication (CMS/HCC) (HCC) Given 10/05/2017 11:35 AM CDT 650 mg diphenhydrAMINE (BENADRYL) tab/cap 25 mg 25 mg, oral, Once, On Sun10/05/17 at 1200, For 1 dose, Please give 30 minutes prior to infusion for infusion reaction prophylaxis.Indications:Croh n's disease of large intestine without complication (CMS/HCC) (HCC) Given 10/05/2017 11:36 AM CDT 25 mg inFLIXimab (REMICADE) 750 mg in sodium chloride 0.9% 250 mL IVPB 750 mg, intravenous, at 125 mL/hr, Administer over 2 Hours, Once, On Sun10/05/17 at 1215, For 1 dose, Infuse with filter tubing, [...] then end therapy., FOR REACTIONS-STOP INFUSION. Use 0.2 micron filter low-sorbingIndications:Crohn 's disease of large intestine without complication (CMS/HCC) (HCC) New Bag 10/05/2017 12:02 PM CDT 750 mg 125 mL/hr sodium chloride 0.9% infusion 30 mL/hr, intravenous, As needed, As needed as back up fluid for infusions, Starting on Sun10/05/17 at 1127Indications:Crohn's disease of large intestine without complication (CMS/HCC) (HCC) New Bag 10/05/2017 11:35 AM CDT 30 mL/hr 30 mL/hr documented in this encounter Care Teams Boatbuilder Wood Relationship Specialty Start Date End Date Timo German MD [address] [place] [address] PCP - General 04/16/17 06/17/20 documented as of this encounter
--- OUTSIDE RECORDS SUMMARY | 2024-06-10 07:10 | XMS_ITS | Encounter Summary ---
Author Organization [facility] Care Team Providers Care Cell Biologist Name Role Phone Unavailable Primary Care Provider Unavailabl e Encounter Details Date Type Department Care Team (Latest Contact Info) Description 01/09/2012 12:01 AM CDT - 04/22/2015 11:59 PM COMPRESSOR MECHANIC Hospital Encounter [facility] Myles Mahajan, DO [address] [place] [address] Crohn's disease of small intestine without complication (CMS/HCC) (HCC) Social History Tobacco Use Types Packs/Day Years Used Date Smoking Tobacco: Never Assessed Comments Unknown Sex and Gender Information Value Date Recorded Sex Assigned at Not on file 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:53 AM COMPRESSOR MECHANIC Gender Identity Not on file Sexual Orientation Not on file documented as of this encounter Plan of Treatment Not on file documented as of this encounter Visit Diagnoses Diagnosis Crohn's disease of small intestine without complication (CMS/HCC) (HCC) documented in this encounter
--- OUTSIDE RECORDS SUMMARY | 2024-06-10 07:10 | XMS_ITS | Encounter Summary ---
Author Organization [facility] Healthcare Address [address] [place] [address] Care Team Providers Care White Spooler Name Role Phone Timo German MD Primary Care Provider [phone] Encounter Details Date Type Department Care Team (Latest Contact Info) Description 04/20/2017 1:41 PM ASSOCIATE FIELD SERVICE ENGINEER - 04/20/2017 11:59 PM ASSOCIATE FIELD SERVICE ENGINEER Hospital Encounter [facility] [phone] [place] [address] [place] [address] Discharge Disposition: Discharge to home or self care Social History Tobacco Use Types Packs/Day Years Used Date Smoking Tobacco: Never Assessed Comments Unknown Sex and Gender Information Value Date Recorded Sex Assigned at Not on file 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:53 AM ASSOCIATE FIELD SERVICE ENGINEER Gender Identity Not on file Sexual Orientation Not on file documented as of this encounter Discharge Disposition Disposition Code Departure Means Destination Discharge to home or self care documented in this encounter Plan of Treatment Not on file documented as of this encounter Procedures Procedure Name Priority Date/Time Associated Diagnosis Comments KNEE RADIOGRAPHY, FRONTAL (AP), LATERAL, OBLIQUE Routine 04/20/2017 7:54 PM ASSOCIATE FIELD SERVICE ENGINEER documented in this encounter Results * KNEE RADIOGRAPHY, FRONTAL (AP), LATERAL, OBLIQUE (04/20/2017 7:54 PM ASSOCIATE FIELD SERVICE ENGINEER) Anatomical Region Laterality Modality N/A Radiographic Yumiko ging 04/20/2017 7:54 PM ASSOCIATE FIELD SERVICE ENGINEER Narrative 04/20/2017 8:15 PM ASSOCIATE FIELD SERVICE ENGINEER GERMÁN SINGH M.D. FINAL REPORT ACC# ??Date Time ??Exam [id number] Apr 20, 2017 13:54:00 [id number] Knee 3 views R EXAMINATION: ??Right knee 3 views HISTORY: ??Right knee pain FINDINGS: 3 views of the right knee include bilateral merchant and PA Sorensen projections. No prior studies are available for comparison. There is a small mildly impacted fracture seen along the right lateral tibial plateau articular surface. Alignment is anatomic. Joint spaces are intact. A small right knee joint effusion is present. IMPRESSION: ??Small mildly impacted fracture along the right lateral tibial plateau articular surface with a small right knee joint effusion. Electronically signed by: Germán Singh M.D. Requested By: HARVEY ARELLANO M.D. Dictated By: ?? GERMÁN SINGH M.D. ??on Apr 20 2017 ??2:13P This document has been electronically signed by: GERMÁN SINGH M.D. on Apr 20 2017 ??2:13P [id number] SINGH M.D. FINAL REPORT Attending: ??MIKE, ??HARVEY Requesting: ??MIKE, ??HARVEY Requesting Fax: ?? Attending Fax: ?? Attending ID: ??[id number] Requesting ID: ??[id number] Report To 1 ID: ??[id number] ? Report To 1 Name: ??, ?? Report To 1 FAX: ?? NextGen Order #: ?? Procedure Note Miscellaneous, Not In File - 04/20/2017 GERMÁN SINGH M.D. FINAL REPORT ACC# Date Time Exam [id number] Apr 20, 2017 13:54:00 [id number] Knee 3 views R EXAMINATION: Right knee 3 views HISTORY: Right knee pain FINDINGS: 3 views of the right knee include bilateral merchant and PA Sorensen projections. No prior studies are available for comparison. There is a small mildly impacted fracture seen along the right lateral tibial plateau articular surface. Alignment is anatomic. Joint spaces are intact. A small right knee joint effusion is present. IMPRESSION: Small mildly impacted fracture along the right lateral tibial plateau articular surface with a small right knee joint effusion. Electronically signed by: Germán Singh M.D. Requested By: HARVEY ARELLANO M.D. Dictated By: GERMÁN SINGH M.D. on Apr 20 2017 2:13P This document has been electronically signed by: GERMÁN SINGH M.D. on Apr 20 2017 2:13P [id number] SINGH M.D. FINAL REPORT Attending: HARVEY ARELLANO Requesting: HARVEY ARELLANO Requesting Fax: Attending Fax: Attending ID: [id number] Requesting ID: [id number] Report To 1 ID: [id number] Report To 1 Name: , Report To 1 FAX: NextGen Order #: us Harvey Arellano MD IMG XR PROCEDURES Final Result documented in this encounter Visit Diagnoses Not on filedocumented in this encounter Care Teams White Spooler Relationship Specialty Start Date End Date Timo German MD [address] [place] [address] PCP - General 04/16/17 06/17/20 documented as of this encounter
--- OUTSIDE RECORDS SUMMARY | 2024-06-10 07:10 | XMS_ITS | Encounter Summary ---
Author Organization [facility] Healthcare Address [address] [place] [address] Care Team Providers Care Fleet Sales Manager Name Role Phone Timo German MD Primary Care Provider [phone] Encounter Details Date Type Department Care Team (Latest Contact Info) Description 04/20/2017 11:02 AM CAVALRY OFFICER - 04/20/2017 11:59 PM CAVALRY OFFICER Hospital Encounter [facility] [phone] Discharge Disposition: Discharge to home or self care Social History Tobacco Use Types Packs/Day Years Used Date Smoking Tobacco: Never Assessed Comments Unknown Sex and Gender Information Value Date Recorded Sex Assigned at Not on file 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:53 AM CAVALRY OFFICER Gender Identity Not on file Sexual Orientation Not on file documented as of this encounter Discharge Disposition Disposition Code Departure Means Destination Discharge to home or self care documented in this encounter Plan of Treatment Not on file documented as of this encounter Visit Diagnoses Not on filedocumented in this encounter Care Teams Fleet Sales Manager Relationship Specialty Start Date End Date Timo German MD [facility] [place] [address] PCP - General 04/16/17 06/17/20 documented as of this encounter
--- OUTSIDE RECORDS SUMMARY | 2024-06-10 07:10 | XMS_ITS | Encounter Summary ---
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 Hospital Encounter [facility] Myles Mahajan, DO [address] [place] [address] Crohn's disease of large intestine without complication (CMS/HCC) Social History Tobacco Use Types Packs/Day Years Used Date Smoking Tobacco: Never Assessed Comments Unknown Sex and Gender Information Value Date Recorded Sex Assigned at Not on file 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
--- OUTSIDE RECORDS SUMMARY | 2024-06-10 07:10 | XMS_ITS | Encounter Summary ---
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 - 04/07/2016 11:59 PM CDT Hospital Encounter [facility] Myles Mahajan, DO [address] [place] [address] Crohn's disease without complication (CMS/HCC) Social History Tobacco Use Types Packs/Day Years Used Date Smoking Tobacco: Never Assessed Comments Unknown Sex and Gender Information Value Date Recorded Sex Assigned at Not on file 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
--- OUTSIDE RECORDS SUMMARY | 2024-06-10 07:11 | XMS_ITS | Encounter Summary ---
Author Organization [facility] Facility Care Team Providers Care Foundation Drill Operator Name Role Phone Unavailable Primary Care Provider Unavailabl e Encounter Details Date Type Department Care Team (Latest Contact Info) Description 11/10/2011 12:01 AM CDT - 12/09/2011 11:59 PM CDT Hospital Encounter [facility] Myles Mahajan, DO [address] [place] [address] Regional enteritis of small intestine (CMS/HCC) (HCC) Social History Tobacco Use Types Packs/Day Years Used Date Smoking Tobacco: Never Assessed Comments Unknown Sex and Gender Information Value Date Recorded Sex Assigned at Not on file 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
--- OUTSIDE RECORDS SUMMARY | 2024-06-10 07:11 | XMS_ITS | Encounter Summary ---
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 Name Role Phone Unavailable Primary Care Provider Unavailabl e Encounter Details Date Type Department Care Team (Latest Contact Info) Description 10/09/2012 8:59 AM CDT - 10/15/2012 6:30 PM CDT Hospital Encounter [facility] Bladimir Bazan MD [address] [place] [address] Diaphragmatic hernia with obstruction; Regional enteritis (CMS/HCC) (HCC); Acidosis; Hemorrhage complicating a procedure; Accidental laceration or bleeding during procedure NEC; Esophageal reflux; Chronic cholecystitis; Peritoneal adhesions; Essential hypertension; Pure hypercholesterolemia; Type 2 or unspecified type diabetes mellitus; Hypothyroidism; Other depressive disorder; Other specified cardiac dysrhythmias; Surgical operation with anastomosis, bypass, or graft, with natural or artificial tissues used as implant causing abnormal patient reaction, or later complication; Place of occurrence, residential institution Social History Tobacco Use Types Packs/Day Years Used Date Smoking Tobacco: Never Assessed Comments Unknown Sex and Gender Information Value Date Recorded Sex Assigned at Not on file 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 Gender Identity Not on file Sexual Orientation Not on file documented as of this encounter Last Filed Vital Signs Vital Sign Reading Time Taken Comments Blood Pressure 121/72 10/15/2012 2:15 PM CDT Pulse 102 10/15/2012 2:15 PM CDT Temperature - - Respiratory Rate - - Oxygen Saturation - - Inhaled Oxygen Concentration - - Weight 102.6 kg (226 lb 3.1 oz) 10/10/2012 2:44 PM CDT Height 157.5 cm (5' 2.01 ) 10/10/2012 2:44 PM CD T Body Mass Index 41.36 10/10/2012 2:44 PM CDT documented in this encounter Discharge Summaries * Provider, MD Fransisca - 10/15/2012 12:00 AM CDT Patient: KARON GAVIRIA Account: [id number] Room No: [facility]A : 1960 Admit Date: 10/09/2012 Attending: BLADIMIR BAZAN MD Disch. Date: 10/15/2012 Dictating: BLADIMIR BAZAN MD Patient Type: IP Admitting Diagnosis: Recurrent gastroesophageal reflux disease. Procedure Performed: 1. Laparoscopic reduction and repair of recurrent paraesophageal hiatal hernia, incarcerated, complex, total additional time 60 minutes. 2. Laparoscopic repair of esophageal hiatus utilizing primary technique and Strattice xenograft overlay. 3. Laparoscopic complete takedown of Becky fundoplication. 4. Laparoscopic Becky re-fundoplication over a 50-Salvadorean Carty bougie dilator. 5. Laparoscopic cholecystectomy. 6. An open Heineke-Mikulicz pyloroplasty performed on October 09, 2012. Please see the operative note for details. Hospital Course: She was followed in the intensive care unit and her care was greatly appreciated. She was extubated on postoperative day 1. Her nasogastric tube was left in. She was found have sustained tachycardia and physician's medical research assistant was seen. She has had a history of tachycardia at home and had been placed on metoprolol. She had been maintained on metoprolol while in the hospital as well. On EKG, she had a sinus tachycardia at 129. Her metoprolol was increased. She underwent upper GI to evaluate the pyloroplasty and repair and this was found to be unremarkable. She was discharged to home in improved condition, on a full liquid diet. Discharge Medications (Refer to Medication Reconciliation Sheet): Medications per medication reconciliation form. Discharge Instructions: Instructions are per my instruction form. BLADIMIR BAZAN MD /mt TD: 11/28/2012 08:00 Authenticated by Bladimir Bazan MD On 12/02/2012 04:18:57 PM documented in this encounter Consult Notes * Provider, MD Fransisca - 10/09/2012 12:00 AM CDT Patient: KARON GAVIRIA Account: [id number] Room No: 592-A : 1960 Consult Date: 10/09/2012 Attending: BLADIMIR BAZAN MD Admit Date: 10/09/2012 Consult.: NHI JIMENEZ MD Disch. Date: Patient Type: IP REASON FOR ADMISSION: Postoperative care, Becky fundoplication, pyloroplasty, cholecystectomy. HISTORY OF THE PRESENT ILLNESS: The patient is a 52-year-old female who was admitted today for an elective laparoscopic Becky fundoplication. She also had findings of paraesophageal hiatal hernia which was incarcerated and chronic cholecystectomy. In addition to the Becky fundoplication, she had a laparoscopic cholecystectomy and an open pyloroplasty. Intraoperatively, she received 4800 mL of Crystalloid, 1000 mL of Hespan and an estimated blood loss of 700 mL and urine output of 610 mL. Following the stay in the recovery room, she was transferred to the intensive care unit for further treatment. Upon arrival, she is somewhat somnolent, but arousable, does not give a great history at this time because of her sedation from narcotics. Therefore I have reviewed the hand written note by Dr. Bazan. There is limited computerized information regarding her past medical history. I am unable to get a review of systems at this time. PAST MEDICAL HISTORY: 1. Crohn's disease. 2. Cardiac dysrhythmia. 3. Hypertension. 4. Hypercholesterolemia. 5. Diabetes. 6. Hypothyroidism. 7. Presumed depression based upon the medications that she was presently receiving. ALLERGIES: CODEINE. HOME MEDICATIONS: Aspirin, Prilosec, Seroquel, amitriptyline, amlodipine, atorvastatin, hydrochlorothiazide, hyoscyamine, levothyroxine, lisinopril, metformin, metoprolol, topiramate, venlafaxine. SOCIAL HISTORY: She has a previous tobacco abuse history, but has obtained sometime in the past. FAMILY HISTORY: Reported on the note as coronary artery disease and diabetes. Any details of this are not available at this time. PHYSICAL EXAMINATION ON ADMISSION: Reveals a young female who is currently somnolent, but arousable in no apparent distress at the present time. VITAL SIGNS: Blood pressure of 140/70, a pulse of 120 and regular and she is presently afebrile. HEENT: The pupils are reactive. Oropharynx is dry. NECK: Is without bruits. CHEST/LUNGS: The lungs are with diminished basilar breath sounds bilaterally. CARDIAC EXAM: Reveals a tachycardic rate with a regular rhythm without any appreciable murmurs. ABDOMINAL EXAM: The abdomen is soft with dry dressings and the presence of a SONIDO drain. EXTREMITIES: Are with trace edema and 1+ pulses. NEUROLOGIC EXAM: Is grossly nonfocal. As stated above, she is somewhat somnolent, but arousable and follows commands. ASSESSMENT AND PLAN: 1. Status post the above stated surgical intervention. She is tachycardic postoperative. She did have a hemoglobin obtained at 1500 a day. I do not see any other laboratory values except for the ABG. We will obtain labs at this time including a followup hemoglobin because of her tachycardia. She also has a metabolic acidosis with a pH of 7.23 and a pCO2 of 40 and a base excess of a -10. We will obtain a lactic acid. She has been given intravenous bicarbonate at this time and we will follow her electrolytes. We will continue volume resuscitation in this individual as I believe she is intravascularly volume depleted and this may be the basis of her tachyarrhythmia. Pain management is being administered as needed. 2. History of hypertension. We will treat her with intravenous beta blockers and additional medications as her blood pressure requires. She is chronically on beta blockers and this may be playing a role in her resting tachycardia at this time as well. She has also been on hydrochlorothiazide and we will obtain a potassium and magnesium and replete these if abnormal. 3. History of Crohn's disease and not currently on steroids. 4. Hypercholesterolemia treated with diet modification resumption of her home medical therapy when she is taking p.o. adequately. 5. Hypothyroidism. Treated with hormone replacement therapy given intravenously at this time. 6. Diabetes, controlled with sliding scale insulin, serial Accu-Cheks. 7. Deep venous thrombosis prophylaxis with sequential compression stockings as per Dr. Bazan. Addition of heparin would be useful in this individual when bleeding risks have diminished postoperatively. CRITICAL CARE TIME: 55 minutes excluding time spent in separately billable procedures. NHI JIMENEZ MD DS/do TD: 10/10/2012 03:58 Authenticated by Nhi Jimenez MD On 10/14/2012 06:40:44 AM documented in this encounter Miscellaneous Notes * Op Note - Provider, MD Fransisca - 10/09/2012 12:00 AM CDT Patient: KARON GAVIRIA Account: [id number] Room No: 479-A : 1960 Proc. Date: 10/09/2012 Surgeon: BLADIMIR BAZAN MD Admit Date: 10/09/2012 Disch. Date: Patient Type: IP Preoperative Diagnoses: 1. Recurrent gastroesophageal reflux disease. 2. Recurrent paraesophageal hiatal hernia, incarcerated, with the intrathoracic stomach. 3. Chronic cholecystitis. Procedures Performed: 1. Laparoscopic extensive reduction and repair of recurrent paraesophageal hiatal hernia incarcerated, complex, total additional time 60 minutes. 2. Laparoscopic repair of esophageal hiatus utilizing primary technique and Strattice xenograft overlay. 3. Laparoscopic complete takedown of Becky fundoplication with dissection of the wrap off of the esophagus, 1 hour additional. 4. Laparoscopic Becky fundoplication over a 50-Salvadorean Carty bougie dilator. 5. Laparoscopic cholecystectomy. 6. Open Heinecke-Mickulicz pyloroplasty. 7. Instillation of platelet rich plasma and platelet-poor plasma to the mediastinum and abdomen. 8. Laparoscopic over-sewing of gastrostomy tube site on the stomach. Surgeon: Bladimir Bazan MD Assistants: 1Rell Singh 2Rell Willett Estimated Blood Loss: 600 mL. Specimen Removed: Gallbladder. Type of Anesthesia Administered: General endotracheal. Drains: One 7-Salvadorean flat drain to the upper abdomen posterior to the wrap, nasogastric tube, and Angulo catheter indwelling. Complications: 1. Bleeding from a branch of the left gastric artery encased in scar, controlled, and rendered hemostatic. 2. Entry into the left chest, which was repaired with clips. Operative Findings: The patient had intense adhesions between her previous gastrics. The gastropexy was taken down, and it was found to be patent; however, I went ahead and ultimately over-sewed the gastrostomy site on the stomach with transversely oriented suture line of 0 Ethibond. An extensive lysis of adhesions was performed between the stomach and the liver; moderate amount of adhesions were encountered. Then the gastrohepatic ligament was again divided. A right were crural approach was used. I was able to carefully dissect between the stomach and right mendy and gain access to the mediastinum. Using meticulous dissection of the superiorly scarred area, the stomach was carefully reduced out of the mediastinum on the right side. I then proceeded anteriorly. The short gastrics were taken down a second time lysing the adhesions between the greater curvature and the omentum. The gastrohepatic ligament was taken down. The intense adhesions between the left side of the stomach and the left mendy were meticulously taken down. Access to the retroesophageal space was obtained. A Opal drain was placed around the stomach. I then continued my mobilization of the esophagus. A meticulous dissection of the stomach and esophagus out of the mediastinum was performed on the left side. A pleurotomy was made and closed several times. What appeared to be a retained sac of lymph was also encountered, and irrigated and cleared. No further lymphatic drainage was seen. On multiple inspections, there was no apparent lymphatic leakage. Next, the esophagus was completely mobilized. A significant amount of periesophageal fat was noted, and this was removed as it could be accounting for a portion of the patient's dysphagia. Extreme care was taken to avoid any injury to the aorta, which the esophagus was intimately associated with, and we had to dissect the stomach and esophagus off of the aorta. Examination of the hiatal musculature demonstrated it to be attenuated on both sides. Therefore, a Strattice xenograft was indicated. During this dissection and clearing of the base of the esophageal hiatus, a branch of the left gastric artery was lacerated during the dissection of a significant amount of scar away from the base of the hiatus. This was controlled with Ligaclips. An estimated blood loss of approximately 500 mL was noted. An aliquot of platelet-rich and an aliquot of platelet-poor plasma were instilled into the mediastinum after clearance. The esophageal hiatus was then reapproximated with interrupted 0 Ethibond sutures, tied with a tie knot device extracorporeally. Next, the Strattice xenograft was, a piece 6 cm x 8 cm pliable checked for expiration date, onto the field. It was trimmed appropriately into a Y configuration. It was placed onto the anterior aspect of the esophageal hiatus, oriented appropriately, and then sewn into position with multiple sutures of 0 Ethibond. An excellent coverage and buttressing of the closure was noted. Next, the gastroesophageal junction was examined. The wrap had completely eroded as there was no connection between the greater curvature and a fundic counterpart. The fundus was identified approximately snf on the side of the esophagus. There was no suture material visible from the hiatal repair or the fundoplication. I then meticulously mobilized the stomach off of the esophagus using the Harmonic Scalpel and blunt technique. The fundoplication was completely taken down. This took approximately extra 60 minutes as it was quite extensively adhesed and doing extensive dissection of the stomach off of the very labile esophagus. Next, Excess fatty tissue was removed from around the esophagus and from around the stomach. A re-fundoplication was then performed by passing the stomach from patient left to patient right again and then dilating the esophagus with 40 and 50-Salvadorean dilators; a [address]. A fundoplication was then completed with interrupted 0 Ethibond sutures tied extracorporeally with a tie knot device. The wrap was approximately 3 cm long and quite loose. After final inspections, the dilator was removed. I then examined the site on the stomach where the gastrostomy had been taken down. Even though it was airtight, I went ahead and placed a row of 0 Ethibond sutures to reinforce the closure. It should be noted that prior to the closure of the esophageal hiatus, the esophagus was tested and found to be airtight. There was no evidence of air leakage under saline insufflation. It also should be noted that following the completion of the fundoplication, the stomach was air tested under saline insufflation and found to be airtight. Next, the gallbladder was examined and found have significant pericholecystic adhesions. Because of the concern for nausea and vomiting as I discussed with the patient preoperatively, the gallbladder was slated to be removed. The gallbladder was retracted by the fundus cephalad and anteriorly. Adhesions, which were significant to the gallbladder corpus and fundus, were taken down. The infundibulum was also adhesed, and these adhesions were taken down. Next, with the infundibulum grasped and the fundus elevated, I dissected out the hepatocystic triangle in a meticulous fashion. After clearance of the cystic artery and cystic duct and achievement of the critical view of safety, the cystic artery was divided with the Harmonic Scalpel. The cystic duct was skeletonized, triply clipped medially, singly clipped laterally, and divided. The gallbladder was then mobilized out of the gallbladder fossa with the Harmonic Scalpel, transferred to the laparoscopic retrieval bag, and removed from the abdomen. It should be noted that a cholecystotomy was made with the grasping clamp on the fundus, and the bile was cleared with a series of irrigations and aspirations. At the completion of this procedure, the position of the pylorus was noted. It should be noted that prior to the cholecystectomy, aliquots of platelet-rich and platelet-poor plasma were instilled over the wrap. Next, the abdomen was desufflated, and the ports were removed. A longitudinal incision was made directly over the position of the pylorus in a paramedian fashion. Dissection was carried down through the skin and subcutaneous fat down to the anterior rectus fascia. The anterior rectus fascia was divided longitudinally as was the rectus abdominus muscle along with its fibers, and the posterior rectus fascia was also divided. The peritoneum was entered sharply, and the peritoneotomy was extended appropriately. The Augusto wound retractor was placed. The Bookwalter retractor was placed. The clip positions from the cholecystectomy were checked and found to be nicely intact and satisfactory. A Sammy maneuver was performed under direct vision with the Bovie electrocautery. The Bookwalter retractor had been placed. Packs were placed. The pylorus was identified. Two stay sutures were placed, 1 on each side of the pylorus on the midline of the pylorus anteriorly. A longitudinal gastropyloric duodenotomy was made, and the stay sutures were pulled superiorly and inferiorly creating a closure line that was transversely oriented with respect to the direction of passage of contents. Interrupted 3-0 silk sutures were placed to close the defect. These were tested as airtight under saline insufflation. The abdomen was copiously irrigated and aspirated. Through one of the lateral 5 mm port sites, a 7-Salvadorean flat drain was entered into the abdomen and placed retrogastrically behind the wrap. It was secured on the skin with 3-0 nylon. A final inspection was completed and found be technically satisfactory for closure. Sponges, instruments, and needles were counted as correct. The abdominal fascia at the initial camera port was closed at the fascia level with interrupted 0 Vicryl suture. The abdominal fascia from the laparotomy was closed with looped number 1 PDS tied in the middle. Copious irrigations were again performed, and the subcutaneous was with interrupted 3-0 Vicryl. The skin was closed with alvin. Description of Operative Procedure: The patient identified, evaluated, and cleared for surgery by the anesthesia staff. She received appropriate intravenous antibiotics and is taken to the operating room. She was placed in the supine position on the operating table. She was appropriately padded, positioned, supported, and secured. Sequential compression pneumatic hose were applied and activated. General endotracheal anesthesia was induced. Intravenous antibiotics were administered. A Angulo catheter and orogastric tube were placed. The abdomen was widely prepped, sterilely draped, and covered with an iodine plastic protective sheet. Initial laparoscopic access was obtained in the usual fashion by instilling local anesthetic, incising the skin transversely, and placing the 12 mm non-bladed direct visualization port under direct videoscopic guidance into the peritoneal cavity without complication as viewed through the clear trocar tip by the indwelling video laparoscopic. Next, the trocar was removed. The video laparoscope was inserted confirming intraperitoneal positioning. A carbon dioxide pneumoperitoneum was established. Inspection demonstrated no evidence of intraabdominal organ injury. A left lateral 12 mm port, a 5 mm right upper quadrant port, and a 5 mm right paraumbilical port were placed under direct videoscopic guidance without complication. A left lower quadrant port was placed as well. When it was visualized that the stomach and liver were adherent to the anterior abdominal wall from the patient's prior gastrostomy, the gastrostomy tube was taken down utilizing sharp dissection. The liver was partially mobilized but left in place as it was nicely adherent against the abdominal wall. I then placed a 5 mm port in the right upper epigastric position under direct videoscopic guidance without complication. The gastrohepatic ligament remnant was taken down from its adhesions to the liver. Examination demonstrated a paraesophageal hernia with the stomach in the chest among a significant amount of scar. I continued my mobilization of the stomach off of the caudate lobe. I gained access to the right mendy as previously described. I divided the phrenic esophageal ligament remnant, divided the significant amount of adhesions between the right side of the stomach, right side of the esophagus, and the mediastinal tissue. I then carried my dissection anteriorly, again dividing significant amount of severe adhesions within the mediastinum. I then turned my attention to the greater curvature and the omental adhesions as the short gastrics had been taken down previously. I remobilized the greater curvature extensively. Significant amount of adhesions were noted on this side, and these were taken down. The remnant of gastropancreatic ligament was also taken down. The fundus was tightly adherent to the left side of the esophageal hiatus. This was meticulously taken down with the Harmonic Scalpel. I then meticulously used a combination of blunt dissection and Harmonic scalpel to mobilize the stomach off the left mendy and the left chest. Access to the retroesophageal space was obtained, and I placed a [place] drain section around the gastroesophageal junction. With this traction, it allowed us to try to preserve the posterior vagus nerves. I was able to further mobilize the stomach out of the left chest. It was significantly scarred to the pleura on this side. A pleurotomy was made and closed with clips. It had reopened 2 during the operation, and it was reclosed successfully with clips. I then continued the dissection of the stomach and esophagus out of the left chest. This was significant and the total additional time of the dissection was 60 minutes. I completely mobilized the esophagus. Again, it should also be noted that the posterior esophagus was significantly attached to the aorta and the periaortic tissues, and these were taken down, sparing the posterior vagus nerves as much as possible. Next, it should be noted that it appeared approximately 5 cm of esophagus were mobilized out of the chest. I then assessed the crural musculature, and it was found to be attenuated. I then continued my dissection, preparing for the crural closure. It was at this point a branch of the left gastric artery was lacerated. This was dissected out with suction and blunt dissection as well as a Harmonic Scalpel for lesser areas and ultimately clipped. This rendered us hemostasis. As described before, approximately 500 mL of bleeding was noted. It also required up-size of the left upper epigastric port to a 12 mm port. This was performed under direct videoscopic guidance. Next, an aliquot of platelet-rich and an aliquot of platelet-poor as described previously were placed in the mediastinum. The esophageal hiatal musculature was then reapproximated with [address]-1 needle, tied extracorporeally with a tie knot device. An appropriate closure was completed, giving us an excellent aperture of the esophageal hiatus. Next, the Strattice xenograft patch was brought onto the field, trimmed appropriately in a Y confirmation, and introduced into the operative field. It was sutured into position with interrupted 0 Ethibond sutures, giving us an excellent buttress of the closure. Next, the perigastric and distal esophageal tissue were noted at approximately 270 degree position. The fundic remnant was present. There was no suture apparent on the esophageal hiatal previous closure or the wrap. I meticulously, grasping fat first, mobilized the fundic remnant, or the wrap remnant, off of the esophagus. I then grasped the stomach carefully and continued my mobilization, completely mobilizing the greater curvature off of the esophagus. Next, after this was completed, the wrap was retried. Excellent fundic mates were chosen. The esophagus was dilated with 40 and then 50-Salvadorean dilators with the 50 left in place as it was somewhat more resistant to passage, although they passed very smoothly. I did not think that the patient's esophagus based on her size and previous adhesions would take a 60-Salvadorean dilator so we left a [address]. A complete loose floppy fundoplication was then completed, first with a mqowzr-[id number] suture of 0 Ethibond followed by sdstto-ug-pcpzimzxh-to-fundus sutures x4 completing this short floppy 3 cm wrap over the 50-Salvadorean dilator. It should be noted that prior to the hiatal closure, the esophagus was tested under saline insufflation and found to be airtight. Next, I tested the stomach, and this was airtight without evidence of leak under saline insufflation after the dilator had been removed. Next, I placed a transversely oriented suture line of 0 Ethibond on the previous gastrostomy site, closing it nicely. Next, aliquots of platelet-rich and platelet-poor plasma were placed over the stomach and wrapped and distal esophagus. Next, the gallbladder was examined. The significant pericholecystic adhesions were noted. The decision to perform a cholecystectomy was completed. The gallbladder was grasped by the fundus and retracted cephalad. Pericholecystic adhesions, which were moderate to severe, were taken down. I then progressively elevated the gallbladder, which was large and with significant adhesions. During this retraction, a cholecystotomy was made, and bile did escape but no stones were visualized escaping. As much of bile was recovered as possible initially, and then we aspirated and irrigated to complete this procedure. The gallbladder was then retracted cephalad and anteriorly. The infundibulum was dissected out and identified. An excellent stretch on the hepatocystic triangle was noted. The dissection of the cystic artery and cystic duct were performed. The critical view of safety was achieved. The cystic artery was taken with the Harmonic Scalpel. The cystic duct was clipped 3 times medially, 1 time laterally with respect to the point of division and divided. The gallbladder was mobilized out of the gallbladder fossa with the Harmonic Scalpel and transferred to the laparoscopic retrieval bag. Hemostasis was achieved with the Bovie electrocautery as well over several small points of bleeding. The gallbladder was transferred to the laparoscopic retrieval bag and removed from the abdomen. The ports replaced. The pneumoperitoneum was reestablished. Inspection demonstrated clip positions to be technically very satisfactory, and hemostasis was achieved. The cavity was irrigated at this point with 2 L of saline and aspirated as much as possible. I then tracked the position of the pylorus and marked this on the anterior abdominal wall. The pneumoperitoneum was exhausted, and the ports were removed. A longitudinal incision was made in a paramedian fashion dissecting through skin, subcutaneous, anterior rectus fascia, rectus abdominis, posterior rectus fascia. The peritoneum was entered sharply, and the peritoneotomy was extended. The Augusto retractor was placed. The Bookwalter retractor was placed. First, I inspected the previous cholecystectomy bed and the clip positions, and they were technically very satisfactory without evidence of leak. Next, I performed a Sammy maneuver under direct vision with a combination of blunt and cautery-aided dissection. This gave excellent mobilization of the duodenum sweep. Next, packs were placed. The stay sutures were placed on each side of the midline of the pylorus on its anterior aspect. With respect to the direction of propulsion, a longitudinal gastropyloric duodenotomy was made. The stay sutures were pulled superoinferiorly, giving us a transversely oriented closure's. With meticulous attention to making sure we would not back wall the duodenum especially, interrupted 3-0 silk sutures were placed closing the gastropyloric duodenotomy in a Heineke-Mikulicz fashion. This was then tested under saline insufflation and found to be airtight. At this point, a 7-Salvadorean fully fluted Barrera drain was brought onto the field, tunneled through the lateral port site, and passed into the upper abdomen just posterior to the wrap. Next, the abdomen was copiously irrigated with saline and aspirated dry. Sponges, instruments, and needles were counted as correct. The abdominal fascia was reapproximated with looped number 1 PDS from above and below tied in the middle. Prior to this, the fascia for the initial camera port was closed from the inside with interrupted 0 Vicryl. Then the fascia was closed. The fascia was copiously irrigated with saline and closed the subcutaneous with 3-0 Vicryl, and the skin was closed with alvin. The other 12 mm port site was above the costal margin on the left lateral, and the epigastric port was placed in such an oblique direction that there was no significant aperture to close, and it was adjacent to the costal margin as well. Sterile dressings were applied. The drain was affixed to the skin with 3-0 nylon. The patient tolerated the procedure relatively well, was taken to recovery in stable and satisfactory condition. BLADIMIR BAZAN MD /mt TD: 10/10/2012 23:43 CC: MIAH PERAZA DO Authenticated by Bladimir Bazan MD On 11/10/2012 10:00:01 AM documented in this encounter Plan of Treatment Not on file documented as of this encounter Procedures Procedure Name Priority Date/Time Associated Diagnosis Comments BLOOD GLUCOSE Routine 10/15/2012 11:41 AM CDT BLOOD GLUCOSE Routine 10/15/2012 7:39 AM CDT PLASMA PHOSPHORUS Routine 10/15/2012 7:1 9 AM CDT PLASMA MAGNESIUM Routine 10/15/2012 7:19 AM CDT PLASMA COMPREHENSIVE METABOLIC PANEL Routine 10/15/2012 7:19 AM CDT BLOOD CELL COUNT (CBC), MORPHOLOGIC EXAM Routine 10/15/2012 7:19 AM CDT DISCHARGE LABORATORY CUMULATIVE REPORT 10/15/2012 BLOOD GLUCOSE Routine 10/14/2012 9:46 PM CDT BLOOD GLUCOSE Routine 10/14/2012 5:27 PM CDT UPPER GASTROINTESTINAL RADIOGRAPHY WITH AQUEOUS CONTRAST Routine 10/14/2012 1:20 PM CDT BLOOD GLUCOSE Routine 10/14/2012 11:41 AM CDT BLOOD GLUCOSE Routine 10/14/2012 5:57 AM CDT BLOOD GLUCOSE Routine 10/13/2012 11:54 PM CDT BLOOD GLUCOSE Routine 10/13/2012 5:10 PM CDT BLOOD GLUCOSE Routine 10/13/2012 12:07 PM CDT BLOOD GLUCOSE Routine 10/13/2012 5:33 AM CDT BLOOD GLUCOSE Routine 10/13/2012 12:14 AM CDT BLOOD GLUCOSE Routine 10/12/2012 5:53 PM CDT BLOOD GLUCOSE Routine 10/12/2012 1:56 PM CDT BLOOD GLUCOSE Routine 10/12/2012 5:51 AM CDT PLASMA PHOSPHORUS Routine 10/12/2012 4:4 7 AM CDT PLASMA MAGNESIUM Routine 10/12/2012 4:47 AM CDT PLASMA COMPREHENSIVE METABOLIC PANEL Routine 10/12/2012 4:47 AM CDT BLOOD CELL COUNT (CBC), MORPHOLOGIC EXAM Routine 10/12/2012 4:47 AM CDT BLOOD GLUCOSE Routine 10/11/2012 11:52 PM CDT BLOOD GLUCOSE Routine 10/11/2012 5:36 PM CDT BLOOD GLUCOSE Routine 10/11/2012 11:40 AM CDT BLOOD GLUCOSE Routine 10/11/2012 6:18 AM CDT PLASMA RENAL PANEL Routine 10/11/2012 5: 45 AM CDT PLASMA MAGNESIUM Routine 10/11/2012 5:45 AM CDT BLOOD CELL COUNT (CBC), MORPHOLOGIC EXAM Routine 10/11/2012 5:45 AM CDT ELECTROCARDIOGRAPHY (ECG) 10/11/2012 BLOOD GLUCOSE Routine 10/10/2012 11:55 PM CDT BLOOD GLUCOSE Routine 10/10/2012 5:31 PM CDT BLOOD GLUCOSE Routine 10/10/2012 11:32 AM CDT PLASMA MAGNESIUM Routine 10/10/2012 8:27 AM CDT BLOOD GLUCOSE Routine 10/10/2012 5:12 AM CDT SERUM CALCIUM, IONIZED Routine 3 2:34 AM CDT PLASMA MAGNESIUM Routine 10/10/2012 2:34 AM CDT PLASMA LACTIC ACID Routine 10/10/2012 2: 34 AM CDT PLASMA COMPREHENSIVE METABOLIC PANEL Routine 10/10/2012 2:34 AM CDT BLOOD CELL COUNT (CBC), MORPHOLOGIC EXAM Routine 10/10/2012 2:34 AM CDT BLOOD GLUCOSE Routine 10/10/2012 12:21 AM CDT SERUM CALCIUM, IONIZED Routine 3 10:03 PM CDT PLASMA TROPONIN I Routine 10/09/2012 10: 03 PM CDT PLASMA PHOSPHORUS Routine 10/09/2012 10: 03 PM CDT PLASMA MAGNESIUM Routine 10/09/2012 10:0 3 PM CDT PLASMA LACTIC ACID Routine 10/09/2012 10 :03 PM CDT PLASMA COMPREHENSIVE METABOLIC PANEL Routine 10/09/2012 10:03 PM CDT BLOOD HEMOGLOBIN Routine 10/09/2012 10:0 3 PM CDT PLASMA THYROXINE (T4), FREE Routine 10/09/2012 9:34 PM CDT PLASMA THYROID-STIMULATING HORMONE (TSH) Routine 10/09/2012 9:34 PM CDT XR CHEST 1 VIEW Routine 10/09/2012 7:58 PM CDT BLOOD GAS, ARTERIAL Routine 10/09/2012 7 :25 PM CDT BLOOD GLUCOSE Routine 10/09/2012 6:57 PM CDT BLOOD GLUCOSE Routine 10/09/2012 3:16 PM CDT BLOOD CELL COUNT (CBC), MORPHOLOGIC EXAM Routine 10/09/2012 3:05 PM CDT BLOOD ABO, RH, INDIRECT AB SCREEN Routine 10/09/2012 2:45 PM CDT BLOOD GLUCOSE Routine 10/09/2012 10:05 AM CDT ANTIBIOTIC RESISTANT ORGANISM SURVEILLANCE PCR, MICROBIOLOGY Routine 10/09/2012 12:00 AM CDT ELECTROCARDIOGRAPHY (ECG) 10/09/2012 SURGICAL PATHOLOGY 10/09/2012 documented in this encounter Results * Blood glucose (10/15/2012 11:41 AM CDT) Pathologist [facility] Glucose, POC, bld 78 70 - 125 mg/dl HISTORICAL RESULTS Gluc, com 1, bld Notify RN HISTORICAL RESULTS Blood specimen (specimen) 10/15/2012 11:41 AM CDT Bladimir Bazan MD LAB BLOOD ORDERABLES F inal Result Performing Organization Address [facility] Co de Phone Number HISTORICAL RESULTS * (ABNORMAL) Blood glucose (10/15/2012 7:39 AM CDT) [facility] Glucose, POC, bld 203(H) 70 - 125 mg/dl HISTORICAL RESULTS Gluc, com 1, bld Notify RN HISTORICAL RESULTS Blood specimen (specimen) 10/15/2012 7:39 AM CDT Bladimir Bazan MD LAB BLOOD ORDERABLES F inal Result Performing Organization Address [facility] Co de Phone Number HISTORICAL RESULTS * (ABNORMAL) Blood cell count (CBC), morphologic exam (10/15/2012 7:19 AM CDT) Pathologist [facility] WBC 8.6 4.5 - 11.0 K/cumm HISTORICAL RESULTS RBC 3.09(L) 3.80 - 5.40 M/cumm HISTORICAL RESULTS Hgb 9.9(L) 11.5 - 16.0 g/dl HISTORICAL RESULTS Comment:As of June 25, the hemoglobin alert value has changed from less than 7.0 g/dL to less than or equal to 6.5 g/dL, first time per admission. Hct 28.8(L) 34.0 - 48.0 % HISTORICAL RESULTS Comment:As of June 25, the hematocrit alert value has changed from less than 21% to less than or equal to 19.5%, first time per admission. MCV 93.1 80.0 - 100.0 fl HISTORICAL RESULTS MCH 32.0 27.0 - 33.0 pg HISTORICAL RESULTS MCHC 34.4 32.0 - 36.0 g/dl HISTORICAL RESULTS Rdw 13.4 11.5 - 14.5 % HISTORICAL RESULTS Platelets 249 140 - 400 K/cumm HISTORICAL RESULTS MPV 7.3(L) 7.4 - 10.4 fl HISTORICAL RESULTS Neutrophils 56.9 42.0 - 75.0 % HISTORICAL RESULTS Lymphocytes 29.4 21.0 - 51.0 % HISTORICAL RESULTS Monos 8.5 2.0 - 9.0 % HISTORICAL RESULTS Eosinophils 4.9 0.0 - 10.0 % HISTORICAL RESULTS Basophils 0.3 0.0 - 1.0 % HISTORICAL RESULTS Neutrophils, abs 4.9 1.8 - 7.7 K/cumm HISTORICAL RESULTS Lymphocytes, abs 2.5 1.0 - 4.8 K/cumm HISTORICAL RESULTS Monocytes, absolute 0.7 0.0 - 0.8 K/cumm HISTORICAL RESULTS Eosinophils, abs 0.4 0.0 - 0.5 K/cumm HISTORICAL RESULTS Basophils, abs 0.0 0.0 - 0.2 K/cumm HISTORICAL RESULTS Blood specimen (specimen) 10/15/2012 7:19 AM CDT us Bladimir Bazan MD LAB BLOOD ORDERABLES F inal Result HISTORICAL RESULTS * (ABNORMAL) Plasma comprehensive metabolic panel (10/15/2012 7:19 AM CDT) Sodium 136 136 - 146 mmol/L HISTORICAL RESULTS K, pl 3.7 3.3 - 4.9 mmol/L HISTORICAL RESULTS Chloride 109(H) 98 - 108 mmol/L HISTORICAL RESULTS CO2 21(L) 22 - 33 mmol/L HISTORICAL RESULTS BUN 5(L) 7 - 18 mg/dl HISTORICAL RESULTS Glucose 176(H) 70 - 140 mg/dl HISTORICAL RESULTS Comment: Glucose is assumed to be non-fasting. ?? Fasting Glucose normal ranges are: 0 days - 2 months: ? 40 mg/dL - 100 mg/dL 2 months - 999 years: ?70 mg/dL - 99 mg/dL Creatinine 0.66 0.50 - 1.50 mg/dl HISTORICAL RESULTS eGFR >60 ml/min/1.7 3 m2 HISTORICAL RESULTS Comment: GFR Reference Range: = > 60 mL/min/1.73 m2 This result has been calculated assuming the patient is Non-. ??If the patient is , please multiply this result by 1.21. The GFR value is not recommended for medication dose adjustment for renal function, creatinine clearance values should be used. Calcium 8.5 8.5 - 10.5 mg/dl HISTORICAL RESULTS Bilirubin 0.7 0.1 - 1.2 mg/dl HISTORICAL RESULTS Protein, pl 5.6(L) 6.0 - 8.5 g/dl HISTORICAL RESULTS Alb 2.4(L) 3.4 - 5.0 g/dl HISTORICAL RESULTS Alk phos 42 38 - 126 IUnits/L HISTORICAL RESULTS ALT 35 14 - 54 IUnits/L HISTORICAL RESULTS AST 24 15 - 41 IUnits/L HISTORICAL RESULTS Plasma 10/15/2012 7:19 AM CDT Bladimir Bazan MD LAB BLOOD ORDERABLES F inal Result Performing Organization Address [place]/[facility] Co de Phone Number HISTORICAL RESULTS * Plasma phosphorus (10/15/2012 7:19 AM CDT) Pathologist [facility] Phosphorus, pl 4.2 2.5 - 4.5 mg/dl HISTORICAL RESULTS Plasma 10/15/2012 7:19 AM CDT us Bladimir Bazan MD LAB BLOOD ORDERABLES F inal Result HISTORICAL RESULTS * Plasma magnesium (10/15/2012 7:19 AM CDT) Magnesium 1.7 1.6 - 2.3 mg/dl HISTORICAL RESULTS Plasma 10/15/2012 7:19 AM CDT Bladimir Bazan MD LAB BLOOD ORDERABLES F inal Result Performing Organization Address [facility] de Phone Number HISTORICAL RESULTS * DISCHARGE LABORATORY CUMULATIVE REPORT (10/15/2012) Narrative 10/15/2012 Ordered by an unspecified provider. Historical Provider LAB BLOOD ORDERABLES Valentina l Result * (ABNORMAL) Blood glucose (10/14/2012 9:46 PM CDT) Glucose, POC, bld 128(H) 70 - 125 mg/dl HISTORICAL RESULTS Gluc, com 1, bld Notify RN HISTORICAL RESULTS Blood specimen (specimen) 10/14/2012 9:46 PM CDT Bladimir Bazan MD LAB BLOOD ORDERABLES F inal Result Performing Organization Address [facility] Co de Phone Number HISTORICAL RESULTS * (ABNORMAL) Blood glucose (10/14/2012 5:27 PM CDT) Glucose, POC, bld 155(H) 70 - 125 mg/dl HISTORICAL RESULTS Gluc, com 1, bld Notify RN HISTORICAL RESULTS Blood specimen (specimen) 10/14/2012 5:27 PM CDT Bladimir Bazan MD LAB BLOOD ORDERABLES F inal Result Performing Organization Address [place]/[facility] Co de Phone Number HISTORICAL RESULTS * UPPER GASTROINTESTINAL RADIOGRAPHY WITH AQUEOUS CONTRAST (10/14/2012 1:20 PM CDT) Anatomical Region Laterality Modality N/A Radiographic Yumiko ging 10/14/2012 1:20 PM CDT Narrative 10/14/2012 4:31 PM CDT Upper GI HISTORY: ??Status post hiatal hernia repair with Becky fundoplication as well as pyloroplasty. ??We were asked to evaluate the fundoplication site and pyloroplasty site with Hypaque. FINDINGS: ??The patient first received some Hypaque through the nasogastric tube. ??There is prompt emptying from the stomach into the duodenum with no significant narrowing or obstruction seen. ??No leak seen. ??Patient was then placed with the table standing and given some Hypaque to drink. ??She was just able to drink a small amount but it did go into the stomach around the surgical site with no definite leak or perforation visualized. ??No significant narrowing seen. ??The study is somewhat limited, however, since the patient could just drink very small amounts at any given time. ??A small amount of free intraperitoneal air is present, presumably from the recent surgery. IMPRESSION: 1. ??No evidence of leak or significant obstruction. ?? DC:[facility] Radiologist: DIAMOND RESENDIZ MD ?? Attending: ??BLADIMIR BAZAN ?? Requesting: BLADIMIR BAZAN ?? Completed Time: ?? 10/14/2012 1:20 PM Dictated Time: ?10/14/2012 1:32 PM Transcribed Time: 10/14/2012 3:31 PM Signed by: ?DIAMOND RESENDIZ MD ?? on 10/14/2012 4:31 PM Procedure Note Provider, MD Fransisca - 10/08/2016 Upper GI HISTORY: Status post hiatal hernia repair with Becky fundoplication as well as pyloroplasty. We were asked to evaluate the fundoplication site and pyloroplasty site with Hypaque. FINDINGS: The patient first received some Hypaque through the nasogastric tube. There is prompt emptying from the stomach into the duodenum with no significant narrowing or obstruction seen. No leak seen. Patient was then placed with the table standing and given some Hypaque to drink. She was just able to drink a small amount but it did go into the stomach around the surgical site with no definite leak or perforation visualized. No significant narrowing seen. The study is somewhat limited, however, since the patient could just drink very small amounts at any given time. A small amount of free intraperitoneal air is present, presumably from the recent surgery. IMPRESSION: 1. No evidence of leak or significant obstruction. DC:[facility] Radiologist: DIAMOND RESENDIZ MD Attending: BLADIMIR BAZAN MD Requesting: BLADIMIR BAZAN MD Completed Time: 10/14/2012 1:20 PM Dictated Time: 10/14/2012 1:32 PM Transcribed Time: 10/14/2012 3:31 PM Signed by: DIAMOND RESENDIZ MD on 10/14/2012 4:31 PM Historical Provider MD IMG XR PROCEDURES Final R esult * (ABNORMAL) Blood glucose (10/14/2012 11:41 AM CDT) Glucose, POC, bld 142(H) 70 - 125 mg/dl HISTORICAL RESULTS Gluc, com 1, bld Notify RN HISTORICAL RESULTS Blood specimen (specimen) 10/14/2012 11:41 AM CDT Bladimir Bazan MD LAB BLOOD ORDERABLES F inal Result Performing Organization Address [facility] Co de Phone Number HISTORICAL RESULTS * (ABNORMAL) Blood glucose (10/14/2012 5:57 AM CDT) Glucose, POC, bld 151(H) 70 - 125 mg/dl HISTORICAL RESULTS Gluc, com 1, bld Notify RN HISTORICAL RESULTS Blood specimen (specimen) 10/14/2012 5:57 AM CDT Bladimir Bazan MD LAB BLOOD ORDERABLES F inal Result Performing Organization Address [facility] Co de Phone Number HISTORICAL RESULTS * (ABNORMAL) Blood glucose (10/13/2012 11:54 PM CDT) Glucose, POC, bld 162(H) 70 - 125 mg/dl HISTORICAL RESULTS Gluc, com 1, bld Notify RN HISTORICAL RESULTS Blood specimen (specimen) 10/13/2012 11:54 PM CDT Bladimir Bazan MD LAB BLOOD ORDERABLES F inal Result HISTORICAL RESULTS * (ABNORMAL) Blood glucose (10/13/2012 5:10 PM CDT) Glucose, POC, bld 154(H) 70 - 125 mg/dl HISTORICAL RESULTS Gluc, com 1, bld Notify RN HISTORICAL RESULTS Blood specimen (specimen) 10/13/2012 5:10 PM CDT Bladimir Bazan MD LAB BLOOD ORDERABLES F inal Result Performing Organization Address [facility] Co de Phone Number HISTORICAL RESULTS * (ABNORMAL) Blood glucose (10/13/2012 12:07 PM CDT) Glucose, POC, bld 187(H) 70 - 125 mg/dl HISTORICAL RESULTS Gluc, com 1, bld Notify RN HISTORICAL RESULTS Blood specimen (specimen) 10/13/2012 12:07 PM CDT Bladimir Bazan MD LAB BLOOD ORDERABLES F inal Result Performing Organization Address [facility] Co de Phone Number HISTORICAL RESULTS * (ABNORMAL) Blood glucose (10/13/2012 5:33 AM CDT) Glucose, POC, bld 161(H) 70 - 125 mg/dl HISTORICAL RESULTS Blood specimen (specimen) 10/13/2012 5:33 AM CDT Bladimir Bazan MD LAB BLOOD ORDERABLES F inal Result Performing Organization Address [facility]/ZIP Co de Phone Number HISTORICAL RESULTS * (ABNORMAL) Blood glucose (10/13/2012 12:14 AM CDT) Glucose, POC, bld 152(H) 70 - 125 mg/dl HISTORICAL RESULTS Gluc, com 1, bld Notify RN HISTORICAL RESULTS Blood specimen (specimen) 10/13/2012 12:14 AM CDT us Bladimir Bazan MD LAB BLOOD ORDERABLES F inal Result Performing Organization Address [facility] de Phone Number HISTORICAL RESULTS * (ABNORMAL) Blood glucose (10/12/2012 5:53 PM CDT) [facility] Glucose, POC, bld 187(H) 70 - 125 mg/dl HISTORICAL RESULTS Gluc, com 1, bld Notify RN HISTORICAL RESULTS Blood specimen (specimen) 10/12/2012 5:53 PM CDT Bladimir Bazan MD LAB BLOOD ORDERABLES F inal Result Performing Organization Address [facility] de Phone Number HISTORICAL RESULTS * Blood glucose (10/12/2012 1:56 PM CDT) [facility] Glucose, POC, bld 95 70 - 125 mg/dl HISTORICAL RESULTS Blood specimen (specimen) 10/12/2012 1:56 PM CDT Bladimir Bazan MD LAB BLOOD ORDERABLES F inal Result Performing Organization Address [facility] de Phone Number HISTORICAL RESULTS * (ABNORMAL) Blood glucose (10/12/2012 5:51 AM CDT) [facility] Glucose, POC, bld 192(H) 70 - 125 mg/dl HISTORICAL RESULTS Gluc, com 1, bld Notify RN HISTORICAL RESULTS Blood specimen (specimen) 10/12/2012 5:51 AM CDT Bladimir Bazan MD LAB BLOOD ORDERABLES F inal Result Performing Organization Address [facility] de Phone Number HISTORICAL RESULTS * (ABNORMAL) Blood cell count (CBC), morphologic exam (10/12/2012 4:47 AM CDT) [facility] MCHC 33.6 32.0 - 36.0 g/dl HISTORICAL RESULTS WBC 7.8 4.5 - 11.0 K/cumm HISTORICAL RESULTS Rdw 13.7 11.5 - 14.5 % HISTORICAL RESULTS RBC 3.00(L) 3.80 - 5.40 M/cumm HISTORICAL RESULTS Platelets 137(L) 140 - 400 K/cumm HISTORICAL RESULTS Hgb 9.5(L) 11.5 - 16.0 g/dl HISTORICAL RESULTS Comment:As of June 25, the hemoglobin alert value has changed from less than 7.0 g/dL to less than or equal to 6.5 g/dL, first time per admission. MPV 7.9 7.4 - 10.4 fl HISTORICAL RESULTS Hct 28.3(L) 34.0 - 48.0 % HISTORICAL RESULTS Comment:As of June 25, the hematocrit alert value has changed from less than 21% to less than or equal to 19.5%, first time per admission. Neutrophils 67.4 42.0 - 75.0 % HISTORICAL RESULTS MCV 94.4 80.0 - 100.0 fl HISTORICAL RESULTS Lymphocytes 21.8 21.0 - 51.0 % HISTORICAL RESULTS MCH 31.8 27.0 - 33.0 pg HISTORICAL RESULTS Monos 9.6(H) 2.0 - 9.0 % HISTORICAL RESULTS Eosinophils 0.9 0.0 - 10.0 % HISTORICAL RESULTS Basophils 0.3 0.0 - 1.0 % HISTORICAL RESULTS Neutrophils, abs 5.3 1.8 - 7.7 K/cumm HISTORICAL RESULTS Lymphocytes, abs 1.7 1.0 - 4.8 K/cumm HISTORICAL RESULTS Monocytes, absolute 0.8 0.0 - 0.8 K/cumm HISTORICAL RESULTS Eosinophils, abs 0.1 0.0 - 0.5 K/cumm HISTORICAL RESULTS Basophils, abs 0.0 0.0 - 0.2 K/cumm HISTORICAL RESULTS Blood specimen (specimen) 10/12/2012 4:47 AM CDT us Bladimir Bazan MD LAB BLOOD ORDERABLES F inal Result HISTORICAL RESULTS * (ABNORMAL) Plasma comprehensive metabolic panel (10/12/2012 4:47 AM CDT) Sodium 135(L) 136 - 146 mmol/L HISTORICAL RESULTS K, pl 4.3 3.3 - 4.9 mmol/L HISTORICAL RESULTS Chloride 107 98 - 108 mmol/L HISTORICAL RESULTS CO2 23 22 - 33 mmol/L HISTORICAL RESULTS BUN 4(L) 7 - 18 mg/dl HISTORICAL RESULTS Glucose 142(H) 70 - 140 mg/dl HISTORICAL RESULTS Comment: Glucose is assumed to be non-fasting. ?? Fasting Glucose normal ranges are: 0 days - 2 months: ? 40 mg/dL - 100 mg/dL 2 months - 999 years: ?70 mg/dL - 99 mg/dL Creatinine 0.62 0.50 - 1.50 mg/dl HISTORICAL RESULTS eGFR >60 ml/min/1.7 3 m2 HISTORICAL RESULTS Comment: GFR Reference Range: = > 60 mL/min/1.73 m2 This result has been calculated assuming the patient is Non-. ??If the patient is , please multiply this result by 1.21. The GFR value is not recommended for medication dose adjustment for renal function, creatinine clearance values should be used. Calcium 7.9(L) 8.5 - 10.5 mg/dl HISTORICAL RESULTS Bilirubin 1.0 0.1 - 1.2 mg/dl HISTORICAL RESULTS Protein, pl 4.9(L) 6.0 - 8.5 g/dl HISTORICAL RESULTS Alb 2.2(L) 3.4 - 5.0 g/dl HISTORICAL RESULTS Alk phos 38 38 - 126 IUnits/L HISTORICAL RESULTS ALT 65(H) 14 - 54 IUnits/L HISTORICAL RESULTS AST 45(H) 15 - 41 IUnits/L HISTORICAL RESULTS Plasma 10/12/2012 4:47 AM CDT Bladimir Bzaan MD LAB BLOOD ORDERABLES F inal Result HISTORICAL RESULTS * (ABNORMAL) Plasma phosphorus (10/12/2012 4:47 AM CDT) Pathologist [facility] Phosphorus, pl 2.2(L) 2.5 - 4.5 mg/dl HISTORICAL RESULTS Plasma 10/12/2012 4:47 AM CDT Bladimir Bazan MD LAB BLOOD ORDERABLES F inal Result Performing Organization Address [facility] Co de Phone Number HISTORICAL RESULTS * Plasma magnesium (10/12/2012 4:47 AM CDT) Magnesium 1.7 1.6 - 2.3 mg/dl HISTORICAL RESULTS Plasma 10/12/2012 4:47 AM CDT Bladimir Bazan MD LAB BLOOD ORDERABLES F inal Result Performing Organization Address [facility] de Phone Number HISTORICAL RESULTS * (ABNORMAL) Blood glucose (10/11/2012 11:52 PM CDT) Glucose, POC, bld 189(H) 70 - 125 mg/dl HISTORICAL RESULTS Gluc, com 1, bld Notify RN HISTORICAL RESULTS Blood specimen (specimen) 10/11/2012 11:52 PM CDT Result [facility] Bladimir Bazan MD LAB BLOOD ORDERABLES F inal Result Performing Organization Address [facility] de Phone Number HISTORICAL RESULTS * (ABNORMAL) Blood glucose (10/11/2012 5:36 PM CDT) Glucose, POC, bld 165(H) 70 - 125 mg/dl HISTORICAL RESULTS Gluc, com 1, bld Notify RN HISTORICAL RESULTS Blood specimen (specimen) 10/11/2012 5:36 PM CDT Bladimir Bazan MD LAB BLOOD ORDERABLES F inal Result Performing Organization Address [facility] de Phone Number HISTORICAL RESULTS * (ABNORMAL) Blood glucose (10/11/2012 11:40 AM CDT) Glucose, POC, bld 182(H) 70 - 125 mg/dl HISTORICAL RESULTS Gluc, com 1, bld Notify RN HISTORICAL RESULTS Blood specimen (specimen) 10/11/2012 11:40 AM CDT Bladimir Bazan MD LAB BLOOD ORDERABLES F inal Result HISTORICAL RESULTS * (ABNORMAL) Blood glucose (10/11/2012 6:18 AM CDT) [facility] Glucose, POC, bld 214(H) 70 - 125 mg/dl HISTORICAL RESULTS Blood specimen (specimen) 10/11/2012 6:18 AM CDT Bladimir Bazan MD LAB BLOOD ORDERABLES F inal Result HISTORICAL RESULTS * (ABNORMAL) Blood cell count (CBC), morphologic exam (10/11/2012 5:45 AM CDT) [facility] WBC 8.9 4.5 - 11.0 K/cumm HISTORICAL RESULTS RBC 3.26(L) 3.80 - 5.40 M/cumm HISTORICAL RESULTS Hgb 10.3(L) 11.5 - 16.0 g/dl HISTORICAL RESULTS Comment:As of June 25, the hemoglobin alert value has changed from less than 7.0 g/dL to less than or equal to 6.5 g/dL, first time per admission. Hct 31.0(L) 34.0 - 48.0 % HISTORICAL RESULTS Comment:As of June 25, the hematocrit alert value has changed from less than 21% to less than or equal to 19.5%, first time per admission. MCV 95.1 80.0 - 100.0 fl HISTORICAL RESULTS MCH 31.6 27.0 - 33.0 pg HISTORICAL RESULTS MCHC 33.3 32.0 - 36.0 g/dl HISTORICAL RESULTS Rdw 13.8 11.5 - 14.5 % HISTORICAL RESULTS Platelets 143 140 - 400 K/cumm HISTORICAL RESULTS MPV 7.1(L) 7.4 - 10.4 fl HISTORICAL RESULTS Neutrophils 76.0(H) 42.0 - 75.0 % HISTORICAL RESULTS Lymphocytes 14.9(L) 21.0 - 51.0 % HISTORICAL RESULTS Monos 8.9 2.0 - 9.0 % HISTORICAL RESULTS Eosinophils 0.0 0.0 - 10.0 % HISTORICAL RESULTS Basophils 0.2 0.0 - 1.0 % HISTORICAL RESULTS Neutrophils, abs 6.8 1.8 - 7.7 K/cumm HISTORICAL RESULTS Lymphocytes, abs 1.3 1.0 - 4.8 K/cumm HISTORICAL RESULTS Monocytes, absolute 0.8 0.0 - 0.8 K/cumm HISTORICAL RESULTS Eosinophils, abs 0.0 0.0 - 0.5 K/cumm HISTORICAL RESULTS Basophils, abs 0.0 0.0 - 0.2 K/cumm HISTORICAL RESULTS Blood specimen (specimen) 10/11/2012 5:45 AM CDT Asif Marion MD LAB BLOOD ORDERABLES Final R [facility] Performing Organization Address [facility] de Phone Number HISTORICAL RESULTS * Plasma magnesium (10/11/2012 5:45 AM CDT) Magnesium 1.7 1.6 - 2.3 mg/dl HISTORICAL RESULTS Plasma 10/11/2012 5:45 AM CDT Asif Marion MD LAB BLOOD ORDERABLES Final R [facility] Performing Organization Address [facility] de Phone Number HISTORICAL RESULTS * (ABNORMAL) Plasma renal panel (10/11/2012 5:45 AM CDT) Sodium 136 136 - 146 mmol/L HISTORICAL RESULTS K, pl 4.1 3.3 - 4.9 mmol/L HISTORICAL RESULTS Chloride 109(H) 98 - 108 mmol/L HISTORICAL RESULTS CO2 24 22 - 33 mmol/L HISTORICAL RESULTS BUN 6(L) 7 - 18 mg/dl HISTORICAL RESULTS Glucose 162(H) 70 - 140 mg/dl HISTORICAL RESULTS Comment: Glucose is assumed to be non-fasting. ?? Fasting Glucose normal ranges are: 0 days - 2 months: ? 40 mg/dL - 100 mg/dL 2 months - 999 years: ?70 mg/dL - 99 mg/dL Creatinine 0.63 0.50 - 1.50 mg/dl HISTORICAL RESULTS eGFR >60 ml/min/1.7 3 m2 HISTORICAL RESULTS Comment: GFR Reference Range: = > 60 mL/min/1.73 m2 This result has been calculated assuming the patient is Non-. ??If the patient is , please multiply this result by 1.21. The GFR value is not recommended for medication dose adjustment for renal function, creatinine clearance values should be used. Calcium 7.9(L) 8.5 - 10.5 mg/dl HISTORICAL RESULTS Alb 2.4(L) 3.4 - 5.0 g/dl HISTORICAL RESULTS Phosphorus, pl 1.8(L) 2.5 - 4.5 mg/dl HISTORICAL RESULTS Plasma 10/11/2012 5:45 AM CDT Asif Marion MD LAB BLOOD ORDERABLES Final R esult Performing Organization Address [facility] de Phone Number HISTORICAL RESULTS * ELECTROCARDIOGRAPHY (ECG) (10/11/2012) Narrative 10/11/2012 Ordered by an unspecified provider. Historical Provider ECG ORDERABLES Final Res ult * (ABNORMAL) Blood glucose (10/10/2012 11:55 PM CDT) Glucose, POC, bld 174(H) 70 - 125 mg/dl HISTORICAL RESULTS Blood specimen (specimen) 10/10/2012 11:55 PM CDT Result [facility] Bladimir Bazan MD LAB BLOOD ORDERABLES F inal Result Performing Organization Address [facility] de Phone Number HISTORICAL RESULTS * (ABNORMAL) Blood glucose (10/10/2012 5:31 PM CDT) Glucose, POC, bld 161(H) 70 - 125 mg/dl HISTORICAL RESULTS Gluc, com 1, bld Notify RN HISTORICAL RESULTS Blood specimen (specimen) 10/10/2012 5:31 PM CDT Result [facility] Bladimir Bazan MD LAB BLOOD ORDERABLES F inal Result Performing Organization Address [facility] de Phone Number HISTORICAL RESULTS * (ABNORMAL) Blood glucose (10/10/2012 11:32 AM CDT) Glucose, POC, bld 173(H) 70 - 125 mg/dl HISTORICAL RESULTS Blood specimen (specimen) 10/10/2012 11:32 AM CDT Bladimir Bazan MD LAB BLOOD ORDERABLES F inal Result Performing Organization Address [facility] de Phone Number HISTORICAL RESULTS * Plasma magnesium (10/10/2012 8:27 AM CDT) Magnesium 2.2 1.6 - 2.3 mg/dl HISTORICAL RESULTS Plasma 10/10/2012 8:27 AM CDT Nhi Jimenez MD LAB BLOOD ORDERABLES Final R esult Performing Organization Address [facility] Phone Number HISTORICAL RESULTS * (ABNORMAL) Blood glucose (10/10/2012 5:12 AM CDT) Glucose, POC, bld 170(H) 70 - 125 mg/dl HISTORICAL RESULTS Gluc, com 1, bld Use Protocol HISTORICAL RESULTS Blood specimen (specimen) 10/10/2012 5:12 AM CDT Bladimir Bazan MD LAB BLOOD ORDERABLES F inal Result Performing Organization Address [facility] de Phone Number HISTORICAL RESULTS * Serum calcium, ionized (10/10/2012 2:34 AM CDT) Pathologist [facility] Ca, ionized, sr 4.58 4.40 - 5.40 mg/dl HISTORICAL RESULTS Serum 10/10/2012 2:34 AM CDT Nhi Jimenez MD LAB BLOOD ORDERABLES Final R esult Performing Organization Address [facility] de Phone Number HISTORICAL RESULTS * (ABNORMAL) Blood cell count (CBC), morphologic exam (10/10/2012 2:34 AM CDT) WBC 7.3 4.5 - 11.0 K/cumm HISTORICAL RESULTS RBC 3.12(L) 3.80 - 5.40 M/cumm HISTORICAL RESULTS Hgb 9.8(L) 11.5 - 16.0 g/dl HISTORICAL RESULTS Comment:As of June 25, the hemoglobin alert value has changed from less than 7.0 g/dL to less than or equal to 6.5 g/dL, first time per admission. Hct 29.5(L) 34.0 - 48.0 % HISTORICAL RESULTS Comment:As of June 25, the hematocrit alert value has changed from less than 21% to less than or equal to 19.5%, first time per admission. MCV 94.5 80.0 - 100.0 fl HISTORICAL RESULTS MCH 31.4 27.0 - 33.0 pg HISTORICAL RESULTS MCHC 33.2 32.0 - 36.0 g/dl HISTORICAL RESULTS Rdw 13.8 11.5 - 14.5 % HISTORICAL RESULTS Platelets 136(L) 140 - 400 K/cumm HISTORICAL RESULTS MPV 7.7 7.4 - 10.4 fl HISTORICAL RESULTS Neutrophils 81.6(H) 42.0 - 75.0 % HISTORICAL RESULTS Lymphocytes 10.2(L) 21.0 - 51.0 % HISTORICAL RESULTS Monos 8.2 2.0 - 9.0 % HISTORICAL RESULTS Eosinophils 0.0 0.0 - 10.0 % HISTORICAL RESULTS Basophils 0.0 0.0 - 1.0 % HISTORICAL RESULTS Neutrophils, abs 6.0 1.8 - 7.7 K/cumm HISTORICAL RESULTS Lymphocytes, abs 0.7(L) 1.0 - 4.8 K/cumm HISTORICAL RESULTS Monocytes, absolute 0.6 0.0 - 0.8 K/cumm HISTORICAL RESULTS Eosinophils, abs 0.0 0.0 - 0.5 K/cumm HISTORICAL RESULTS Basophils, abs 0.0 0.0 - 0.2 K/cumm HISTORICAL RESULTS Blood specimen (specimen) 10/10/2012 2:34 AM CDT us Bladimir Bazan MD LAB BLOOD ORDERABLES F inal Result HISTORICAL RESULTS * Plasma magnesium (10/10/2012 2:34 AM CDT) Magnesium 1.8 1.6 - 2.3 mg/dl HISTORICAL RESULTS Plasma 10/10/2012 2:34 AM CDT Nhi Jimenez MD LAB BLOOD ORDERABLES Final R esult HISTORICAL RESULTS * (ABNORMAL) Plasma lactic acid (10/10/2012 2:34 AM CDT) Lactic acid 2.5(H) 0.5 - 2.2 mmol/L HISTORICAL RESULTS Plasma 10/10/2012 2:34 AM CDT Nhi Jimenez MD LAB BLOOD ORDERABLES Final R esult Performing Organization Address [facility] Co de Phone Number HISTORICAL RESULTS * (ABNORMAL) Plasma comprehensive metabolic panel (10/10/2012 2:34 AM CDT) Sodium 138 136 - 146 mmol/L HISTORICAL RESULTS K, pl 3.7 3.3 - 4.9 mmol/L HISTORICAL RESULTS Chloride 108 98 - 108 mmol/L HISTORICAL RESULTS CO2 25 22 - 33 mmol/L HISTORICAL RESULTS BUN 9 7 - 18 mg/dl HISTORICAL RESULTS Glucose 173(H) 70 - 140 mg/dl HISTORICAL RESULTS Comment: Glucose is assumed to be non-fasting. ?? Fasting Glucose normal ranges are: 0 days - 2 months: ? 40 mg/dL - 100 mg/dL 2 months - 999 years: ?70 mg/dL - 99 mg/dL Creatinine 0.82 0.50 - 1.50 mg/dl HISTORICAL RESULTS eGFR >60 ml/min/1.7 3 m2 HISTORICAL RESULTS Comment: GFR Reference Range: = > 60 mL/min/1.73 m2 This result has been calculated assuming the patient is Non-. ??If the patient is , please multiply this result by 1.21. The GFR value is not recommended for medication dose adjustment for renal function, creatinine clearance values should be used. Calcium 7.9(L) 8.5 - 10.5 mg/dl HISTORICAL RESULTS Bilirubin 0.5 0.1 - 1.2 mg/dl HISTORICAL RESULTS Protein, pl 4.5(L) 6.0 - 8.5 g/dl HISTORICAL RESULTS Alb 2.5(L) 3.4 - 5.0 g/dl HISTORICAL RESULTS Alk phos 38 38 - 126 IUnits/L HISTORICAL RESULTS ALT 113(H) 14 - 54 IUnits/L HISTORICAL RESULTS AST 132(H) 15 - 41 IUnits/L HISTORICAL RESULTS Plasma 10/10/2012 2:34 AM CDT Bladimir Bazan MD LAB BLOOD ORDERABLES F inal Result Performing Organization Address [facility] Co de Phone Number HISTORICAL RESULTS * (ABNORMAL) Blood glucose (10/10/2012 12:21 AM CDT) Glucose, POC, bld 194(H) 70 - 125 mg/dl HISTORICAL RESULTS Gluc, com 1, bld Use Protocol HISTORICAL RESULTS Blood specimen (specimen) 10/10/2012 12:21 AM CDT Bladimir Bazan MD LAB BLOOD ORDERABLES F inal Result Performing Organization Address [facility] de Phone Number HISTORICAL RESULTS * Serum calcium, ionized (10/09/2012 10:03 PM CDT) Ca, ionized, sr 4.71 4.40 - 5.40 mg/dl HISTORICAL RESULTS Serum 10/09/2012 10:0 3 PM CDT Nhi Jimenez MD LAB BLOOD ORDERABLES Final R esult Performing Organization Address [facility] Co de Phone Number HISTORICAL RESULTS * (ABNORMAL) Blood hemoglobin (10/09/2012 10:03 PM CDT) Hgb 10.0(L) 11.5 - 16.0 g/dl HISTORICAL RESULTS Comment:As of June 25 13, the hemoglobin alert value has changed from less than 7.0 g/dL to less than or equal to 6.5 g/dL, first time per admission. Blood specimen (specimen) 10/09/2012 10:03 PM CDT Nhi Jimenez MD LAB BLOOD ORDERABLES Final R [facility] Performing Organization Address [facility] de Phone Number HISTORICAL RESULTS * (ABNORMAL) Plasma lactic acid (10/09/2012 10:03 PM CDT) Lactic acid 5.7(H) 0.5 - 2.2 mmol/L HISTORICAL RESULTS Plasma 10/09/2012 10:0 3 PM CDT Nhi Jimenez MD LAB BLOOD ORDERABLES Final R esult Performing Organization Address [facility] de Phone Number HISTORICAL RESULTS * (ABNORMAL) Plasma comprehensive metabolic panel (10/09/2012 10:03 PM CDT) Sodium 135(L) 136 - 146 mmol/L HISTORICAL RESULTS K, pl 4.0 3.3 - 4.9 mmol/L HISTORICAL RESULTS Chloride 106 98 - 108 mmol/L HISTORICAL RESULTS CO2 19(L) 22 - 33 mmol/L HISTORICAL RESULTS BUN 12 7 - 18 mg/dl HISTORICAL RESULTS Glucose 199(H) 70 - 140 mg/dl HISTORICAL RESULTS Comment: Glucose is assumed to be non-fasting. ?? Fasting Glucose normal ranges are: 0 days - 2 months: ? 40 mg/dL - 100 mg/dL 2 months - 999 years: ?70 mg/dL - 99 mg/dL Creatinine 0.96 0.50 - 1.50 mg/dl HISTORICAL RESULTS eGFR >60 ml/min/1.7 3 m2 HISTORICAL RESULTS Comment: GFR Reference Range: = > 60 mL/min/1.73 m2 This result has been calculated assuming the patient is Non-. ??If the patient is , please multiply this result by 1.21. The GFR value is not recommended for medication dose adjustment for renal function, creatinine clearance values should be used. Calcium 7.9(L) 8.5 - 10.5 mg/dl HISTORICAL RESULTS Bilirubin 0.6 0.1 - 1.2 mg/dl HISTORICAL RESULTS Protein, pl 4.4(L) 6.0 - 8.5 g/dl HISTORICAL RESULTS Alb 2.5(L) 3.4 - 5.0 g/dl HISTORICAL RESULTS Alk phos 39 38 - 126 IUnits/L HISTORICAL RESULTS ALT 121(H) 14 - 54 IUnits/L HISTORICAL RESULTS AST 154(H) 15 - 41 IUnits/L HISTORICAL RESULTS Plasma 10/09/2012 10:0 3 PM CDT Nhi Jimenez MD LAB BLOOD ORDERABLES Final R esult Performing Organization Address [facility] de Phone Number HISTORICAL RESULTS * Plasma phosphorus (10/09/2012 10:03 PM CDT) Phosphorus, pl 3.1 2.5 - 4.5 mg/dl HISTORICAL RESULTS Plasma 10/09/2012 10:0 3 PM CDT Nhi Jimenez MD LAB BLOOD ORDERABLES Final R [facility] Performing Organization Address [facility] de Phone Number HISTORICAL RESULTS * Plasma troponin I (10/09/2012 10:03 PM CDT) Troponin I 0.01 0.00 - 0.04 ng/ml HISTORICAL RESULTS Comment: < 0.04 ng/mL ??No evidence of myocardial damage. 0.04 - 0.78 ng/mL Indeterminate-repeat analysis assess the possibility of myocardial damage. >0.78 ng/mL ??Consistent with myocardial damage. Plasma 10/09/2012 10:0 3 PM CDT Nhi Jimenez MD LAB BLOOD ORDERABLES Final R [facility] Performing Organization Address [facility] de Phone Number HISTORICAL RESULTS * (ABNORMAL) Plasma magnesium (10/09/2012 10:03 PM CDT) Magnesium 1.2(L) 1.6 - 2.3 mg/dl HISTORICAL RESULTS Plasma 10/09/2012 10:0 3 PM CDT Nhi Jimenez MD LAB BLOOD ORDERABLES Final R esult Performing Organization Address [facility] de Phone Number HISTORICAL RESULTS * Plasma thyroxine (T4), free (10/09/2012 9:34 PM CDT) Free T4 1.55 0.58 - 1.64 ng/dl HISTORICAL RESULTS Plasma 10/09/2012 9:34 PM CDT Narrative HISTORICAL RESULTS - 10/09/2012 11:22 PM CDT This test was reflexed from a TSH result. Nhi Jimenez MD LAB BLOOD ORDERABLES Final R esult Performing Organization Address [facility] de Phone Number HISTORICAL RESULTS * (ABNORMAL) Plasma thyroid-stimulating hormone (TSH) (10/09/2012 9:34 PM CDT) TSH 0.07(L) 0.34 - 5.60 mcIUnits/ ml HISTORICAL RESULTS Comment: TSH Interpretive Guide: [place]: ??TSH surges within the first 15 to 60 minutes of life reaching peak levels at about 30 minutes. ??Values then decline rapidly and after 1 week are within the Adult Normal Range . Adult: Hyperthyroid ?< ?? 0.1 ?mcIUnits/mL Euthyroid ?0.34 ??- ??5.60 ? mcIUnits/mL Hypothyroid ? > 12.0 ? mcIUnits/mL Plasma 10/09/2012 9:34 PM CDT Narrative HISTORICAL RESULTS - 10/09/2012 10:46 PM CDT A Free T4 was reflexed. Nhi Jimenez MD LAB BLOOD ORDERABLES Final R esult Performing Organization Address [facility] de Phone Number HISTORICAL RESULTS * XR Chest 1 View (10/09/2012 7:58 PM CDT) Anatomical Region Laterality Modality Body, Chest N/A Radiographic Yumiko ging 10/09/2012 7:58 PM CDT Narrative 10/10/2012 6:55 AM CDT Portable chest: HISTORY: Short of breath. There are no prior chest radiographs for comparison. Heart size is normal. ??Nasogastric tube extends into the stomach. ?? Small amount of bibasilar parenchymal disease is present. ?? Inspiratory effort is limited. ??There is no evidence of significant pneumothorax. SUMMARY: 1. Relatively small amount of bibasilar parenchymal disease. 2. Nasogastric tube extends into the stomach. ?? 3. Normal heart size. 4. No evidence of pulmonary vascular redistribution or significant pneumothorax. ??There is a small linear density in the right upper lung field but lung markings are noted peripheral to this density. GD/mvb Radiologist: JUAN BROWNING MD, M.D. ?? Attending: ??BLADIMIR BAZAN ?? Requesting: BLADIMIR BAZAN ?? Completed Time: ?? 10/09/2012 7:58 PM Dictated Time: ?10/10/2012 06:06 AM Transcribed Time: 10/10/2012 06:54 AM Signed by: ?JUAN BROWNING MD ??MLucas on 10/10/2012 06:55 AM Procedure Note Provider, MD Fransisca - 10/08/2016 Portable chest: HISTORY: Short of breath. There are no prior chest radiographs for comparison. Heart size is normal. Nasogastric tube extends into the stomach. Small amount of bibasilar parenchymal disease is present. Inspiratory effort is limited. There is no evidence of significant pneumothorax. SUMMARY: 1. Relatively small amount of bibasilar parenchymal disease. 2. Nasogastric tube extends into the stomach. 3. Normal heart size. 4. No evidence of pulmonary vascular redistribution or significant pneumothorax. There is a small linear density in the right upper lung field but lung markings are noted peripheral to this density. GD/mvb Radiologist: JUAN BROWNING MD, M.D. Attending: BLADIMIR BAZAN MD Requesting: BLADIMIR BAZAN MD Completed Time: 10/09/2012 7:58 PM Dictated Time: 10/10/2012 06:06 AM Transcribed Time: 10/10/2012 06:54 AM Signed by: NALLELY HARVEY, JUAN Balbuena M.D. on 10/10/2012 06:55 AM Historical Provider IMG XR PROCEDURES Final R esult * (ABNORMAL) Blood gas, arterial (10/09/2012 7:25 PM CDT) Ph, art 7.23(L) 7.35 - 7.45 HISTORICAL RESULTS PCO2 40 35.0 - 45.0 mm Hg HISTORICAL RESULTS PO2, art 62(L) 85.0 - 100.0 mm Hg HISTORICAL RESULTS HCO3, art 17(L) 22 - 26 mmol/L HISTORICAL RESULTS BE, art -10.2(L) -2.0 - 2.0 mmol/L HISTORICAL RESULTS O2 sat, art 86.2(L) 95.0 - 100.0 % HISTORICAL RESULTS O2, inspired, art No HISTORICAL RESULTS Delivery device Cannula HISTORICAL RESULTS Flow, O2 therapy 5 L/min HISTORICAL RESULTS Arterial blood 10/09/2012 7: 25 PM CDT Bladimir Bzaan MD LAB BLOOD ORDERABLES F inal Result Performing Organization Address [facility] Co de Phone Number HISTORICAL RESULTS * (ABNORMAL) Blood glucose (10/09/2012 6:57 PM CDT) Glucose, POC, bld 239(H) 70 - 125 mg/dl HISTORICAL RESULTS Blood specimen (specimen) 10/09/2012 6:57 PM CDT Bladimir Bazan MD LAB BLOOD ORDERABLES F inal Result HISTORICAL RESULTS * (ABNORMAL) Blood glucose (10/09/2012 3:16 PM CDT) Glucose, POC, bld 268(H) 70 - 125 mg/dl HISTORICAL RESULTS Blood specimen (specimen) 10/09/2012 3:16 PM CDT Bladimir Bazan MD LAB BLOOD ORDERABLES F inal Result HISTORICAL RESULTS * (ABNORMAL) Blood cell count (CBC), morphologic exam (10/09/2012 3:05 PM CDT) WBC 8.7 4.5 - 11.0 K/cumm HISTORICAL RESULTS RBC 2.87(L) 3.80 - 5.40 M/cumm HISTORICAL RESULTS Hgb 9.2(L) 11.5 - 16.0 g/dl HISTORICAL RESULTS Comment:As of June 25, the hemoglobin alert value has changed from less than 7.0 g/dL to less than or equal to 6.5 g/dL, first time per admission. Hct 27.2(L) 34.0 - 48.0 % HISTORICAL RESULTS Comment:As of June 25, the hematocrit alert value has changed from less than 21% to less than or equal to 19.5%, first time per admission. MCV 94.7 80.0 - 100.0 fl HISTORICAL RESULTS MCH 32.0 27.0 - 33.0 pg HISTORICAL RESULTS MCHC 33.8 32.0 - 36.0 g/dl HISTORICAL RESULTS Rdw 13.8 11.5 - 14.5 % HISTORICAL RESULTS Platelets 148 140 - 400 K/cumm HISTORICAL RESULTS MPV 7.9 7.4 - 10.4 fl HISTORICAL RESULTS Neutrophils 74.5 42.0 - 75.0 % HISTORICAL RESULTS Lymphocytes 17.8(L) 21.0 - 51.0 % HISTORICAL RESULTS Monos 6.5 2.0 - 9.0 % HISTORICAL RESULTS Eosinophils 0.9 0.0 - 10.0 % HISTORICAL RESULTS Basophils 0.3 0.0 - 1.0 % HISTORICAL RESULTS Neutrophils, abs 6.5 1.8 - 7.7 K/cumm HISTORICAL RESULTS Lymphocytes, abs 1.5 1.0 - 4.8 K/cumm HISTORICAL RESULTS Monocytes, absolute 0.6 0.0 - 0.8 K/cumm HISTORICAL RESULTS Eosinophils, abs 0.1 0.0 - 0.5 K/cumm HISTORICAL RESULTS Basophils, abs 0.0 0.0 - 0.2 K/cumm HISTORICAL RESULTS Blood specimen (specimen) 10/09/2012 3:05 PM CDT Bladimir Bazan MD LAB BLOOD ORDERABLES F inal Result Performing Organization Address [facility] Co de Phone Number HISTORICAL RESULTS * Blood ABO, Rh, indirect ab screen (10/09/2012 2:45 PM CDT) ABO typing O HISTORICA L RESULTS Rho(D) typing Positive HISTOR ICAL RESULTS Mansi, indirect Negative HISTORICAL RESULTS Blood specimen (specimen) 10/09/2012 2:45 PM CDT Bladimir Bazan MD LAB BLOOD ORDERABLES F inal Result Performing Organization Address [facility] de Phone Number HISTORICAL RESULTS * Blood glucose (10/09/2012 10:05 AM CDT) Glucose, POC, bld 123 70 - 125 mg/dl HISTORICAL RESULTS Blood specimen (specimen) 10/09/2012 10:05 AM CDT Bladimir Bazan MD LAB BLOOD ORDERABLES F inal Result Performing Organization Address [facility] de Phone Number HISTORICAL RESULTS * Antibiotic Resistant Organism Surveillance PCR, Microbiology (10/09/2012 12:00 AM CDT) 10/09/2012 12:0 0 AM CDT Narrative HISTORICAL RESULTS - 10/10/2012 5:37 PM CDT ? [facility] Microbiology ?[address] ??[place], [place] ??[address] ? Tele: ?Ramon Lopez M.D. - Life Insurance Agent - Joe Bates - Administrative ?Director ?? Patient: KARON GAVIRIA ? Admission #: ??[id number] ?? : 1960 ?Location:[facility] ?? Gender: F ?? Admit Date: 10/09/2012 ? = = = = = = = = = = = = = = = = = = = = = = = = = = = = = = = = = = = = = = [facility] [place], PCR ? Nasal - IC ?? Study : Adm ?? Specimen ?? Collected ? 10/09/2012 ? Expected Result ? 21:30 ?? MRSA Screen, ?MRSA NEGATIVE ?MRSA NEGATIVE ?? PCR = = = = = = = = = = = = = = = = = = = = = = = = = = = = = = = = = = = = = ? Physician: ?[facility] Microbiology Report-ClinDesk ? us Historical Provider MD LAB MICROBIOLOGY - GENERA L ORDERABLES Final Result HISTORICAL RESULTS * Surgical pathology (10/09/2012) Narrative 10/09/2012 Ordered by an unspecified provider. us Historical Provider MD LAB PATHOLOGY ORDERABLES Final Result * ELECTROCARDIOGRAPHY (ECG) (10/09/2012) Narrative 10/09/2012 Ordered by an unspecified provider. us Historical Provider ECG ORDERABLES Final Res ult documented in this encounter Visit Diagnoses Diagnosis Diaphragmatic hernia with obstruction Regional enteritis (CMS/HCC) (HCC) Regional enteritis of unspecified site Acidosis Hemorrhage complicating a procedure Accidental laceration or bleeding during procedure NEC Esophageal reflux Chronic cholecystitis Peritoneal adhesions Peritoneal adhesions (postoperative) (postinfection) Essential hypertension Unspecified essential hypertension Pure hypercholesterolemia Type 2 or unspecified type diabetes mellitus Hypothyroidism Unspecified hypothyroidism Other depressive disorder Other specified cardiac dysrhythmias Surgical operation with anastomosis, bypass, or graft, with natural or artificial tissues used as implant causing abnormal patient reaction, or later complication Place of occurrence, residential institution documented in this encounter
--- OUTSIDE RECORDS SUMMARY | 2024-06-10 07:11 | XMS_ITS | Encounter Summary ---
Author Organization [facility] Facility Care Team Providers Care Acquisitions Librarian Name Role Phone Unavailable Primary Care Provider Unavailabl e Encounter Details Date Type Department Care Team (Latest Contact Info) Description 01/10/2012 12:01 AM CDT - 01/12/2012 11:59 PM CDT Hospital Encounter [facility] CL[facility] Myles Mahajan, DO [address] [place] [address] Regional enteritis of small intestine (CMS/HCC) (HCC) Social History Tobacco Use Types Packs/Day Years Used Date Smoking Tobacco: Never Assessed Comments Unknown Sex and Gender Information Value Date Recorded Sex Assigned at Not on file 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
--- OUTSIDE RECORDS SUMMARY | 2024-06-10 07:11 | XMS_ITS | Encounter Summary ---
Author Organization [facility] Facility Care Team Providers Care Elementary Principal Name Role Phone Unavailable Primary Care Provider Unavailabl e Encounter Details Date Type Department Care Team (Latest Contact Info) Description 09/27/2012 10:59 AM CDT - 09/27/2012 11:59 PM CDT Hospital Encounter [facility] CL[facility] Lucio Green MD [address] [facility] [place] [address] Hernia of abdominal cavity; Esophageal reflux; Dyskinesia of esophagus Social History Tobacco Use Types Packs/Day Years Used Date Smoking Tobacco: Never Assessed Comments Unknown Sex and Gender Information Value Date Recorded Sex Assigned at Not on file 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 Gender Identity Not on file Sexual Orientation Not on file documented as of this encounter Plan of Treatment Not on file documented as of this encounter Procedures Procedure Name Priority Date/Time Associated Diagnosis Comments FL UPPER GI SERIES, SINGLE CONTRAST Routine 09/27/2012 11:58 AM CDT ESOPHAGEAL MOTILITY STUDY 09/27/2012 documented in this encounter Results * Upper Gi Series (09/27/2012 11:58 AM CDT) Anatomical Region Laterality Modality Body N/A Radiographic Yumiko ging 09/27/2012 11:5 8 AM CDT Narrative 09/27/2012 3:53 PM CDT UPPER GI SERIES DATED 09/27/2012 HISTORY: History of hiatal hernia status post hiatal hernia repair in 2007 with difficulty swallowing, heartburn and shortness of breath with belching over the last 6-8 months. FINDINGS: Upper GI series performed using standard technique. There is mild esophageal dysmotility with some nonpropulsive tertiary contractions after initial swallows in the esophagus. ??The patient has deformity of the cardia of the stomach presumably related to previous Becky fundoplication. ??However, contrast fills what appears be the wrap and appears to be loose with a recurrent hernia suspected and gastroesophageal reflux. ??The appearance suggests that the wrap may be at least partially disrupted. ??Gastroesophageal reflux is seen which extends to the mid thoracic esophagus. ??The remaining portion of the gastrointestinal pattern appears grossly normal with no gastric mass or outlet obstruction. The duodenal bulb and duodenal C-sweep appear unremarkable. IMPRESSION: 1. Postsurgical changes at gastroesophageal junction presumably from previous Becky fundoplication. ??There does appear to be a recurrent hiatal hernia and the appearance with gastroesophageal reflux suggests at least partial disruption of the wrap. 2. Gastroesophageal reflux as mentioned above. 3. Esophageal dysmotility. ?? DF/[facility] Radiologist: LUCIO GREEN ?? Attending: ??CINDY BAZAN ?? Requesting: CINDY BAZAN ?? Completed Time: ?? 09/27/2012 11:58 AM Dictated Time: ?09/27/2012 1:14 PM Transcribed Time: 09/27/2012 2:34 PM Signed by: ?LUCIO GREEN ?? on 09/27/2012 3:53 PM Procedure Note Provider, MD Fransisca - 10/08/2016 UPPER GI SERIES DATED 09/27/2012 HISTORY: History of hiatal hernia status post hiatal hernia repair in 2007 with difficulty swallowing, heartburn and shortness of breath with belching over the last 6-8 months. FINDINGS: Upper GI series performed using standard technique. There is mild esophageal dysmotility with some nonpropulsive tertiary contractions after initial swallows in the esophagus. The patient has deformity of the cardia of the stomach presumably related to previous Becky fundoplication. However, contrast fills what appears be the wrap and appears to be loose with a recurrent hernia suspected and gastroesophageal reflux. The appearance suggests that the wrap may be at least partially disrupted. Gastroesophageal reflux is seen which extends to the mid thoracic esophagus. The remaining portion of the gastrointestinal pattern appears grossly normal with no gastric mass or outlet obstruction. The duodenal bulb and duodenal C-sweep appear unremarkable. IMPRESSION: 1. Postsurgical changes at gastroesophageal junction presumably from previous Becky fundoplication. There does appear to be a recurrent hiatal hernia and the appearance with gastroesophageal reflux suggests at least partial disruption of the wrap. 2. Gastroesophageal reflux as mentioned above. 3. Esophageal dysmotility. DF/[facility] Radiologist: LUCIO GREEN Attending: CINDY BAZAN MD Requesting: CINDY BAZAN MD Completed Time: 09/27/2012 11:58 AM Dictated Time: 09/27/2012 1:14 PM Transcribed Time: 09/27/2012 2:34 PM Signed by: LUCIO GREEN on 09/27/2012 3:53 PM us Historical Provider MD DEMPSEY FLUOROSCOPY PROCEDURE S Final Result * ESOPHAGEAL MOTILITY STUDY (09/27/2012) Anatomical Region Laterality Modality Other Narrative 09/27/2012 Ordered by an unspecified provider. us Historical Provider GI PROCEDURE ORDERABLES F inal Result documented in this encounter Visit Diagnoses Diagnosis Hernia of abdominal cavity Hernia of unspecified site of abdominal cavity without mention of obstruction or gangrene Esophageal reflux Dyskinesia of esophagus documented in this encounter
--- OUTSIDE RECORDS SUMMARY | 2024-06-10 07:11 | XMS_ITS | Encounter Summary ---
Author Organization [facility] Facility Care Team Providers Care Supervisor Core Drilling Name Role Phone Unavailable Primary Care Provider Unavailabl e Encounter Details Date Type Department Care Team (Latest Contact Info) Description 12/10/2011 12:01 AM CDT - 01/09/2012 11:59 PM CDT Hospital Encounter [facility] CLINCONV Myles Mahajan, DO [address] [place] [address] Regional enteritis of small intestine (CMS/HCC) (HCC) Social History Tobacco Use Types Packs/Day Years Used Date Smoking Tobacco: Never Assessed Comments Unknown Sex and Gender Information Value Date Recorded Sex Assigned at Not on file 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
--- OUTSIDE RECORDS SUMMARY | 2024-06-10 07:11 | XMS_ITS | Encounter Summary ---
Author Organization [facility] Facility Care Team Providers Care Requirements Manager Name Role Phone Unavailable Primary Care Provider Unavailabl e Encounter Details Date Type Department Care Team (Latest Contact Info) Description 06/11/2011 12:01 AM ROR ENGINEER - 07/11/2011 11:59 PM ROR ENGINEER Hospital Encounter [facility] CLINCON[facility] Myles Mahajan, DO [address] [place] [address] Regional enteritis of small intestine (CMS/HCC) (HCC) Social History Tobacco Use Types Packs/Day Years Used Date Smoking Tobacco: Never Assessed Comments Unknown Sex and Gender Information Value Date Recorded Sex Assigned at Not on file 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:53 AM ROR ENGINEER Gender Identity Not on file Sexual Orientation Not on file documented as of this encounter Plan of Treatment Not on file documented as of this encounter Visit Diagnoses Diagnosis Regional enteritis of small intestine (CMS/HCC) (HCC) Regional enteritis of small intestine documented in this encounter
--- OUTSIDE RECORDS SUMMARY | 2024-06-10 07:11 | XMS_ITS | Encounter Summary ---
Author Organization [facility] Facility Care Team Providers Care Finisher Hot Strip Name Role Phone Unavailable Primary Care Provider Unavailabl e Encounter Details Date Type Department Care Team (Latest Contact Info) Description 03/11/2011 12:01 AM CDT - 04/10/2011 11:59 PM CDT Hospital Encounter [facility] CLINCONV Myles Mahajan, DO [address] [place] [address] Regional enteritis (CMS/HCC) (HCC); Abdominal pain; Nausea with vomiting Social History Tobacco Use Types Packs/Day Years Used Date Smoking Tobacco: Never Assessed Comments Unknown Sex and Gender Information Value Date Recorded Sex Assigned at Not on file 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:53 AM TRANSLATOR/INTERPRETER Gender Identity Not on file Sexual Orientation Not on file documented as of this encounter Plan of Treatment Not on file documented as of this encounter Visit Diagnoses Diagnosis Regional enteritis (CMS/HCC) (HCC) Regional enteritis of unspecified site Abdominal pain Abdominal pain, unspecified site Nausea with vomiting documented in this encounter
--- OUTSIDE RECORDS SUMMARY | 2024-06-10 07:11 | XMS_ITS | Encounter Summary ---
Author Organization [facility] Facility Care Team Providers Care Systems Planner Name Role Phone Unavailable Primary Care Provider Unavailabl e Encounter Details Date Type Department Care Team (Latest Contact Info) Description 10/10/2011 12:01 AM CDT - 11/09/2011 11:59 PM CDT Hospital Encounter [facility] CLINCONV Myles Mahajan, DO [address] [place] [address] Regional enteritis of small intestine (CMS/HCC) (HCC) Social History Tobacco Use Types Packs/Day Years Used Date Smoking Tobacco: Never Assessed Comments Unknown Sex and Gender Information Value Date Recorded Sex Assigned at Not on file 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
--- OUTSIDE RECORDS SUMMARY | 2024-06-10 07:11 | XMS_ITS | Encounter Summary ---
Author Organization [facility] Facility Care Team Providers Care Temper Mill Roller Name Role Phone Unavailable Primary Care Provider Unavailabl e Encounter Details Date Type Department Care Team (Latest Contact Info) Description 05/11/2011 12:01 AM PRINTING EQUIPMENT MECHANIC - 06/10/2011 11:59 PM PRINTING EQUIPMENT MECHANIC Hospital Encounter [facility] CLINCON[facility] Myles Mahajan, DO [address] [place] [address] Regional enteritis of small intestine (CMS/HCC) (HCC) Social History Tobacco Use Types Packs/Day Years Used Date Smoking Tobacco: Never Assessed Comments Unknown Sex and Gender Information Value Date Recorded Sex Assigned at Not on file 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:53 AM PRINTING EQUIPMENT MECHANIC Gender Identity Not on file Sexual Orientation Not on file documented as of this encounter Plan of Treatment Not on file documented as of this encounter Visit Diagnoses Diagnosis Regional enteritis of small intestine (CMS/HCC) (HCC) Regional enteritis of small intestine documented in this encounter
--- OUTSIDE RECORDS SUMMARY | 2024-06-10 07:11 | XMS_ITS | Encounter Summary ---
Author Organization [facility] Facility Care Team Providers Care Last Code Striper Name Role Phone Unavailable Primary Care Provider Unavailabl e Encounter Details Date Type Department Care Team (Latest Contact Info) Description 09/10/2011 12:01 AM CDT - 10/09/2011 11:59 PM CDT Hospital Encounter 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
--- OUTSIDE RECORDS SUMMARY | 2024-06-10 07:11 | XMS_ITS | Encounter Summary ---
Author Organization [facility] Facility Care Team Providers Care Cat Scan Tech Name Role Phone Unavailable Primary Care Provider Unavailabl e Encounter Details Date Type Department Care Team (Latest Contact Info) Description 09/27/2012 9:44 AM CDT - 09/27/2012 11:59 PM CDT Hospital Encounter 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
--- OUTSIDE RECORDS SUMMARY | 2024-06-10 07:11 | XMS_ITS | Encounter Summary ---
Author Organization [facility] Facility Care Team Providers Care Publications Writer Name Role Phone Unavailable Primary Care Provider Unavailabl e Encounter Details Date Type Department Care Team (Latest Contact Info) Description 04/11/2011 12:01 AM CDT - 05/10/2011 11:59 PM GLASS DECORATOR Hospital Encounter [facility] CLINCON[facility] Myles Mahajan, DO [address] [place] [address] Regional enteritis of small intestine (CMS/HCC) (HCC) Social History Tobacco Use Types Packs/Day Years Used Date Smoking Tobacco: Never Assessed Comments Unknown Sex and Gender Information Value Date Recorded Sex Assigned at Not on file 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:53 AM GLASS DECORATOR Gender Identity Not on file Sexual Orientation Not on file documented as of this encounter Plan of Treatment Not on file documented as of this encounter Visit Diagnoses Diagnosis Regional enteritis of small intestine (CMS/HCC) (HCC) Regional enteritis of small intestine documented in this encounter
--- OUTSIDE RECORDS SUMMARY | 2024-06-10 07:11 | XMS_ITS | Encounter Summary ---
Author Organization [facility] Facility Care Team Providers Care Pier Master Assistant Name Role Phone Unavailable Primary Care Provider Unavailabl e Encounter Details Date Type Department Care Team (Latest Contact Info) Description 07/12/2011 12:01 AM PROPERTY INSURANCE AGENT - 08/09/2011 11:59 PM PROPERTY INSURANCE AGENT Hospital Encounter [facility] CLINCONV Myles Mahajan, DO [address] [place] [address] Regional enteritis of small intestine (CMS/HCC) (HCC) Social History Tobacco Use Types Packs/Day Years Used Date Smoking Tobacco: Never Assessed Comments Unknown Sex and Gender Information Value Date Recorded Sex Assigned at Not on file 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:53 AM PROPERTY INSURANCE AGENT Gender Identity Not on file Sexual Orientation Not on file documented as of this encounter Plan of Treatment Not on file documented as of this encounter Visit Diagnoses Diagnosis Regional enteritis of small intestine (CMS/HCC) (HCC) Regional enteritis of small intestine documented in this encounter
--- OUTSIDE RECORDS SUMMARY | 2024-06-10 07:11 | XMS_ITS | Encounter Summary ---
Author Organization [facility] Facility Care Team Providers Care Flux Mixer Name Role Phone Unavailable Primary Care Provider Unavailabl e Encounter Details Date Type Department Care Team (Latest Contact Info) Description 04/10/2011 10:54 AM CDT - 04/16/2011 11:59 PM SWEATBAND DRUMMER Hospital Encounter [facility] CL[facility]CON[facility] Myles Mahajan, DO [address] [place] [address] Nausea with vomiting; Abdominal pain Social History Tobacco Use Types Packs/Day Years Used Date Smoking Tobacco: Never Assessed Comments Unknown Sex and Gender Information Value Date Recorded Sex Assigned at Not on file 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:53 AM SWEATBAND DRUMMER Gender Identity Not on file Sexual Orientation Not on file documented as of this encounter Plan of Treatment Not on file documented as of this encounter Visit Diagnoses Diagnosis Nausea with vomiting Abdominal pain Abdominal pain, unspecified site documented in this encounter
--- OUTSIDE RECORDS SUMMARY | 2024-06-10 07:11 | XMS_ITS | Encounter Summary ---
Author Organization [facility] Facility Care Team Providers Care Administrative Court Justice Name Role Phone Unavailable Primary Care Provider Unavailabl e Encounter Details Date Type Department Care Team (Latest Contact Info) Description 08/10/2011 12:01 AM VESSEL CAPTAIN - 09/09/2011 11:59 PM CDT Hospital Encounter [facility] CLINCON[facility] Myles Mahajan, DO [address] [place] [address] Regional enteritis of small intestine (CMS/HCC) (HCC) Social History Tobacco Use Types Packs/Day Years Used Date Smoking Tobacco: Never Assessed Comments Unknown Sex and Gender Information Value Date Recorded Sex Assigned at Not on file 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:53 AM VESSEL CAPTAIN Gender Identity Not on file Sexual Orientation Not on file documented as of this encounter Plan of Treatment Not on file documented as of this encounter Visit Diagnoses Diagnosis Regional enteritis of small intestine (CMS/HCC) (HCC) Regional enteritis of small intestine documented in this encounter
--- OUTSIDE RECORDS SUMMARY | 2024-06-10 07:12 | XMS_ITS | Encounter Summary ---
Author Organization [facility] Facility Care Team Providers Care Recording Clerk Name Role Phone Unavailable Primary Care Provider Unavailabl e Encounter Details Date Type Department Care Team (Latest Contact Info) Description 01/09/2011 12:01 AM CDT - 02/08/2011 11:59 PM CDT Hospital Encounter [facility] CLINCONV Myles Mahajan, DO [address] [place] [address] Regional enteritis (CMS/HCC) (HCC) Social History Tobacco Use Types Packs/Day Years Used Date Smoking Tobacco: Never Assessed Comments Unknown Sex and Gender Information Value Date Recorded Sex Assigned at Not on file 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
--- OUTSIDE RECORDS SUMMARY | 2024-06-10 07:12 | XMS_ITS | Encounter Summary ---
Author Organization [facility] Facility Care Team Providers Care Medical Assistant Name Role Phone Unavailable Primary Care Provider Unavailabl e Encounter Details Date Type Department Care Team (Latest Contact Info) Description 12/09/2010 12:01 AM CDT - 01/08/2011 11:59 PM CDT Hospital Encounter [facility] CLINCONV Myles Mahajan, DO [address] [place] [address] Regional enteritis (CMS/HCC) (HCC) Social History Tobacco Use Types Packs/Day Years Used Date Smoking Tobacco: Never Assessed Comments Unknown Sex and Gender Information Value Date Recorded Sex Assigned at Not on file 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
--- OUTSIDE RECORDS SUMMARY | 2024-06-10 07:12 | XMS_ITS | Encounter Summary ---
Author Organization [facility] Facility Care Team Providers Care Station Mechanic Apprentice Name Role Phone Unavailable Primary Care Provider Unavailabl e Encounter Details Date Type Department Care Team (Latest Contact Info) Description 02/09/2011 12:01 AM CDT - 03/10/2011 11:59 PM CDT Hospital Encounter [facility] CLINCONV Myles Mahajan, DO [address] [place] [address] Regional enteritis of small intestine (CMS/HCC) (HCC) Social History Tobacco Use Types Packs/Day Years Used Date Smoking Tobacco: Never Assessed Comments Unknown Sex and Gender Information Value Date Recorded Sex Assigned at Not on file 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:53 AM INSURANCE ADMINISTRATIVE ASSISTANT Gender Identity Not on file Sexual Orientation Not on file documented as of this encounter Plan of Treatment Not on file documented as of this encounter Visit Diagnoses Diagnosis Regional enteritis of small intestine (CMS/HCC) (HCC) Regional enteritis of small intestine documented in this encounter
--- OUTSIDE RECORDS SUMMARY | 2024-06-10 07:12 | XMS_ITS | Encounter Summary ---
Author Organization [facility] Facility Care Team Providers Care Petrography Teacher Name Role Phone Unavailable Primary Care Provider Unavailabl e Encounter Details Date Type Department Care Team (Latest Contact Info) Description 10/09/2010 12:01 AM CDT - 11/08/2010 11:59 PM CDT Hospital Encounter [facility] CLINCONV Myles Mahajan, DO [address] [place] [address] Regional enteritis of small intestine (CMS/HCC) (HCC) Social History Tobacco Use Types Packs/Day Years Used Date Smoking Tobacco: Never Assessed Comments Unknown Sex and Gender Information Value Date Recorded Sex Assigned at Not on file 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:53 AM PHOTO MASK INSPECTOR Gender Identity Not on file Sexual Orientation Not on file documented as of this encounter Plan of Treatment Not on file documented as of this encounter Visit Diagnoses Diagnosis Regional enteritis of small intestine (CMS/HCC) (HCC) Regional enteritis of small intestine documented in this encounter
--- OUTSIDE RECORDS SUMMARY | 2024-06-10 07:12 | XMS_ITS | Encounter Summary ---
Author Organization [facility] Facility Care Team Providers Care Test Development Engineer Name Role Phone Unavailable Primary Care Provider Unavailabl e Encounter Details Date Type Department Care Team (Latest Contact Info) Description 03/24/2011 7:24 AM CDT - 03/24/2011 11:59 PM CDT Hospital Encounter [facility] CLINCONV Myles Mahajan, DO [address] [place] [address] Abdominal pain; Regional enteritis (CMS/HCC) (HCC); Nausea without vomiting; Diaphragmatic hernia Social History Tobacco Use Types Packs/Day Years Used Date Smoking Tobacco: Never Assessed Comments Unknown Sex and Gender Information Value Date Recorded Sex Assigned at Not on file 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
--- OUTSIDE RECORDS SUMMARY | 2024-06-10 07:12 | XMS_ITS | Encounter Summary ---
Author Organization [facility] Facility Care Team Providers Care Horticulture Worker Name Role Phone Unavailable Primary Care Provider Unavailabl e Encounter Details Date Type Department Care Team (Latest Contact Info) Description 11/09/2010 12:01 AM CDT - 12/08/2010 11:59 PM CDT Hospital Encounter [facility] CLINCONV Myles Mahajan, DO [address] [place] [address] Regional enteritis (CMS/HCC) (HCC) Social History Tobacco Use Types Packs/Day Years Used Date Smoking Tobacco: Never Assessed Comments Unknown Sex and Gender Information Value Date Recorded Sex Assigned at Not on file 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:53 AM MANAGER SURGICAL Gender Identity Not on file Sexual Orientation Not on file documented as of this encounter Plan of Treatment Not on file documented as of this encounter Visit Diagnoses Diagnosis Regional enteritis (CMS/HCC) (HCC) Regional enteritis of unspecified site documented in this encounter
--- OUTSIDE RECORDS SUMMARY | 2024-06-10 07:13 | XMS_ITS | Encounter Summary ---
Author Organization [facility] Facility Care Team Providers Care Or Manager Name Role Phone Unavailable Primary Care Provider Unavailabl e Encounter Details Date Type Department Care Team (Latest Contact Info) Description 07/12/2010 12:01 AM SURGICAL NURSE PRACTITIONER - 08/08/2010 11:59 PM SURGICAL NURSE PRACTITIONER Hospital Encounter [facility] CLINCONV Myles Mahajan, DO [address] [place] [address] Regional enteritis of small intestine (CMS/HCC) (HCC) Social History Tobacco Use Types Packs/Day Years Used Date Smoking Tobacco: Never Assessed Comments Unknown Sex and Gender Information Value Date Recorded Sex Assigned at Not on file 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:53 AM SURGICAL NURSE PRACTITIONER Gender Identity Not on file Sexual Orientation Not on file documented as of this encounter Plan of Treatment Not on file documented as of this encounter Visit Diagnoses Diagnosis Regional enteritis of small intestine (CMS/HCC) (HCC) Regional enteritis of small intestine documented in this encounter
--- OUTSIDE RECORDS SUMMARY | 2024-06-10 07:13 | XMS_ITS | Encounter Summary ---
Author Organization [facility] Facility Care Team Providers Care Licensed Audiologist Name Role Phone Unavailable Primary Care Provider Unavailabl e Encounter Details Date Type Department Care Team (Late st Contact Info) Description 07/22/2010 9:15 AM REGIONAL CLINICAL DIRECTOR Hospital Encounter [facility] CLINCONV Social History Tobacco Use Types Packs/Day Years Used Date Smoking Tobacco: Never Assessed Comments Unknown Sex and Gender Information Value Date Recorded Sex Assigned at Not on file 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:53 AM REGIONAL CLINICAL DIRECTOR Gender Identity Not on file Sexual Orientation Not on file documented as of this encounter Plan of Treatment Not on file documented as of this encounter Visit Diagnoses Not on filedocumented in this encounter
--- OUTSIDE RECORDS SUMMARY | 2024-06-10 07:13 | XMS_ITS | Encounter Summary ---
Author Organization [facility] Facility Care Team Providers Care Moisture Conditioner Operator Name Role Phone Unavailable Primary Care Provider Unavailabl e Encounter Details Date Type Department Care Team (Latest Contact Info) Description 09/09/2010 12:01 AM CDT - 10/08/2010 11:59 PM CDT Hospital Encounter [facility] CLINCONV Myles Mahajan, DO [address] [place] [address] Regional enteritis (CMS/HCC) (HCC); Encounter for long-term (current) use of other medications Social History Tobacco Use Types Packs/Day Years Used Date Smoking Tobacco: Never Assessed Comments Unknown Sex and Gender Information Value Date Recorded Sex Assigned at Not on file 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:53 AM BENDING PRESS OPERATOR Gender Identity Not on file Sexual Orientation Not on file documented as of this encounter Plan of Treatment Not on file documented as of this encounter Visit Diagnoses Diagnosis Regional enteritis (CMS/HCC) (HCC) Regional enteritis of unspecified site Encounter for long-term (current) use of other medications documented in this encounter
--- OUTSIDE RECORDS SUMMARY | 2024-06-10 07:13 | XMS_ITS | Encounter Summary ---
Author Organization [facility] Facility Care Team Providers Care Housing Property Manager Name Role Phone Unavailable Primary Care Provider Unavailabl e Encounter Details Date Type Department Care Team (Latest Contact Info) Description 08/09/2010 12:01 AM SAMPLE COLOR MAKER - 09/08/2010 11:59 PM CDT Hospital Encounter [facility] CLINCONV Myles Mahajan, DO [address] [place] [address] Regional enteritis (CMS/HCC) (HCC); Encounter for long-term (current) use of other medications Social History Tobacco Use Types Packs/Day Years Used Date Smoking Tobacco: Never Assessed Comments Unknown Sex and Gender Information Value Date Recorded Sex Assigned at Not on file 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:53 AM SAMPLE COLOR MAKER Gender Identity Not on file Sexual Orientation Not on file documented as of this encounter Plan of Treatment Not on file documented as of this encounter Visit Diagnoses Diagnosis Regional enteritis (CMS/HCC) (HCC) Regional enteritis of unspecified site Encounter for long-term (current) use of other medications documented in this encounter
--- OUTSIDE RECORDS SUMMARY | 2024-06-10 07:13 | XMS_ITS | Encounter Summary ---
Author Organization [facility] Facility Care Team Providers Care Screwdown Operator Name Role Phone Unavailable Primary Care Provider Unavailabl e Encounter Details Date Type Department Care Team (Latest Contact Info) Description 06/11/2010 12:01 AM LOCAL AREA NETWORK ADMINISTRATOR - 07/11/2010 11:59 PM LOCAL AREA NETWORK ADMINISTRATOR Hospital Encounter [facility] CLINCONV Myles Mahajan, DO [address] [place] [address] Regional enteritis of small intestine (CMS/HCC) (HCC) Social History Tobacco Use Types Packs/Day Years Used Date Smoking Tobacco: Never Assessed Comments Unknown Sex and Gender Information Value Date Recorded Sex Assigned at Not on file 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:53 AM LOCAL AREA NETWORK ADMINISTRATOR Gender Identity Not on file Sexual Orientation Not on file documented as of this encounter Plan of Treatment Not on file documented as of this encounter Visit Diagnoses Diagnosis Regional enteritis of small intestine (CMS/HCC) (HCC) Regional enteritis of small intestine documented in this encounter
--- OUTSIDE RECORDS SUMMARY | 2024-06-10 07:14 | XMS_ITS | Encounter Summary ---
Author Organization [facility] Facility Care Team Providers Care Customs Brokerage Manager Name Role Phone Unavailable Primary Care Provider Unavailabl e Encounter Details Date Type Department Care Team (Latest Contact Info) Description 05/11/2010 12:01 AM BRINELL TESTER - 06/10/2010 11:59 PM BRINELL TESTER Hospital Encounter [facility] CLINCONV Myles Mahajan, DO [address] [place] [address] Regional enteritis of small intestine (CMS/HCC) (HCC) Social History Tobacco Use Types Packs/Day Years Used Date Smoking Tobacco: Never Assessed Comments Unknown Sex and Gender Information Value Date Recorded Sex Assigned at Not on file 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:53 AM BRINELL TESTER Gender Identity Not on file Sexual Orientation Not on file documented as of this encounter Plan of Treatment Not on file documented as of this encounter Visit Diagnoses Diagnosis Regional enteritis of small intestine (CMS/HCC) (HCC) Regional enteritis of small intestine documented in this encounter
--- OUTSIDE RECORDS SUMMARY | 2024-06-10 07:14 | XMS_ITS | Encounter Summary ---
Author Organization [facility] Facility Care Team Providers Care Hide And Skin Colerer Name Role Phone Unavailable Primary Care Provider Unavailabl e Encounter Details Date Type Department Care Team (Latest Contact Info) Description 04/11/2010 12:01 AM CDT - 05/10/2010 11:59 PM DIRECTOR DIGITAL CATALOGUE Hospital Encounter [facility] CLINCONV Myles Mahajan, DO [address] [place] [address] Regional enteritis (CMS/HCC) (HCC) Social History Tobacco Use Types Packs/Day Years Used Date Smoking Tobacco: Never Assessed Comments Unknown Sex and Gender Information Value Date Recorded Sex Assigned at Not on file 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:53 AM DIRECTOR DIGITAL CATALOGUE Gender Identity Not on file Sexual Orientation Not on file documented as of this encounter Plan of Treatment Not on file documented as of this encounter Visit Diagnoses Diagnosis Regional enteritis (CMS/HCC) (HCC) Regional enteritis of unspecified site documented in this encounter
--- OUTSIDE RECORDS SUMMARY | 2024-06-10 07:15 | XMS_ITS | Encounter Summary ---
Author Organization [facility] Facility Care Team Providers Care Professor Of Sociology Name Role Phone Unavailable Primary Care Provider Unavailabl e Encounter Details Date Type Department Care Team (Latest Contact Info) Description 03/11/2010 12:01 AM CDT - 04/10/2010 11:59 PM CDT Hospital Encounter [facility] CLINCONV Myles Mahajan, DO [address] [place] [address] Regional enteritis of small intestine (CMS/HCC) (HCC) Social History Tobacco Use Types Packs/Day Years Used Date Smoking Tobacco: Never Assessed Comments Unknown Sex and Gender Information Value Date Recorded Sex Assigned at Not on file 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:53 AM REPAIRER WOOD FURNITURE Gender Identity Not on file Sexual Orientation Not on file documented as of this encounter Plan of Treatment Not on file documented as of this encounter Visit Diagnoses Diagnosis Regional enteritis of small intestine (CMS/HCC) (HCC) Regional enteritis of small intestine documented in this encounter
--- OUTSIDE RECORDS SUMMARY | 2024-06-10 07:16 | XMS_ITS | Encounter Summary ---
Author Organization [facility] Facility Care Team Providers Care Heel Gummer Name Role Phone Unavailable Primary Care Provider Unavailabl e Encounter Details Date Type Department Care Team (Latest Contact Info) Description 01/09/2010 12:01 AM CDT - 02/08/2010 11:59 PM CDT Hospital Encounter [facility] CLINCONV Myles Mahajan, DO [address] [place] [address] Regional enteritis of small intestine (CMS/HCC) (HCC) Social History Tobacco Use Types Packs/Day Years Used Date Smoking Tobacco: Never Assessed Comments Unknown Sex and Gender Information Value Date Recorded Sex Assigned at Not on file 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:53 AM COMBAT CONTROL MANAGER Gender Identity Not on file Sexual Orientation Not on file documented as of this encounter Plan of Treatment Not on file documented as of this encounter Visit Diagnoses Diagnosis Regional enteritis of small intestine (CMS/HCC) (HCC) Regional enteritis of small intestine documented in this encounter
--- OUTSIDE RECORDS SUMMARY | 2024-06-10 07:16 | XMS_ITS | Encounter Summary ---
Author Organization [facility] Facility Care Team Providers Care Towboat Operator Name Role Phone Unavailable Primary Care Provider Unavailabl e Encounter Details Date Type Department Care Team (Latest Contact Info) Description 02/09/2010 12:01 AM CDT - 03/10/2010 11:59 PM CDT Hospital Encounter [facility] CLINCONV Myles Mahajan, DO [address] [place] [address] Regional enteritis of small intestine (CMS/HCC) (HCC) Social History Tobacco Use Types Packs/Day Years Used Date Smoking Tobacco: Never Assessed Comments Unknown Sex and Gender Information Value Date Recorded Sex Assigned at Not on file 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:53 AM SERVICE ESTABLISHMENT ATTENDANT Gender Identity Not on file Sexual Orientation Not on file documented as of this encounter Plan of Treatment Not on file documented as of this encounter Visit Diagnoses Diagnosis Regional enteritis of small intestine (CMS/HCC) (HCC) Regional enteritis of small intestine documented in this encounter
--- OUTSIDE RECORDS SUMMARY | 2024-06-10 07:17 | XMS_ITS | Encounter Summary ---
Author Organization [facility] Facility Care Team Providers Care Typing Secretary Name Role Phone Unavailable Primary Care Provider Unavailabl e Encounter Details Date Type Department Care Team (Latest Contact Info) Description 12/09/2009 12:01 AM CDT - 01/08/2010 11:59 PM CDT Hospital Encounter [facility] CLINCONV Myles Mahajan, DO [address] [place] [address] Regional enteritis of small intestine (CMS/HCC) (HCC) Social History Tobacco Use Types Packs/Day Years Used Date Smoking Tobacco: Never Assessed Comments Unknown Sex and Gender Information Value Date Recorded Sex Assigned at Not on file 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:53 AM PIN CHASER Gender Identity Not on file Sexual Orientation Not on file documented as of this encounter Plan of Treatment Not on file documented as of this encounter Visit Diagnoses Diagnosis Regional enteritis of small intestine (CMS/HCC) (HCC) Regional enteritis of small intestine documented in this encounter
--- OUTSIDE RECORDS SUMMARY | 2024-06-10 07:18 | XMS_ITS | Encounter Summary ---
Author Organization [facility] Facility Care Team Providers Care Discharge Rn Name Role Phone Unavailable Primary Care Provider Unavailabl e Encounter Details Date Type Department Care Team (Latest Contact Info) Description 10/09/2009 12:01 AM CDT - 11/08/2009 11:59 PM CDT Hospital Encounter [facility] CLINCONV Myles Mahajan, DO [address] [place] [address] Regional enteritis of small intestine (CMS/HCC) (HCC) Social History Tobacco Use Types Packs/Day Years Used Date Smoking Tobacco: Never Assessed Comments Unknown Sex and Gender Information Value Date Recorded Sex Assigned at Not on file 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:53 AM AUTOMATIC WINDER OPERATOR Gender Identity Not on file Sexual Orientation Not on file documented as of this encounter Plan of Treatment Not on file documented as of this encounter Visit Diagnoses Diagnosis Regional enteritis of small intestine (CMS/HCC) (HCC) Regional enteritis of small intestine documented in this encounter
--- OUTSIDE RECORDS SUMMARY | 2024-06-10 07:18 | XMS_ITS | Encounter Summary ---
Author Organization [facility] Facility Care Team Providers Care Election Watcher Name Role Phone Unavailable Primary Care Provider Unavailabl e Encounter Details Date Type Department Care Team (Latest Contact Info) Description 11/09/2009 12:01 AM CDT - 12/08/2009 11:59 PM CDT Hospital Encounter [facility] CLINCONV Myles Mahajan, DO [address] [place] [address] Regional enteritis of small intestine (CMS/HCC) (HCC) Social History Tobacco Use Types Packs/Day Years Used Date Smoking Tobacco: Never Assessed Comments Unknown Sex and Gender Information Value Date Recorded Sex Assigned at Not on file 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:53 AM HEATING ELEMENT BUILDER Gender Identity Not on file Sexual Orientation Not on file documented as of this encounter Plan of Treatment Not on file documented as of this encounter Visit Diagnoses Diagnosis Regional enteritis of small intestine (CMS/HCC) (HCC) Regional enteritis of small intestine documented in this encounter
--- OUTSIDE RECORDS SUMMARY | 2024-06-10 07:19 | XMS_ITS | Encounter Summary ---
Author Organization [facility] Facility Care Team Providers Care Crystallizer Operator Name Role Phone Unavailable Primary Care Provider Unavailabl e Encounter Details Date Type Department Care Team (Latest Contact Info) Description 09/09/2009 12:01 AM CDT - 10/08/2009 11:59 PM CDT Hospital Encounter [facility] CLINCONV Myles Mahajan, DO [address] [place] [address] Regional enteritis of small intestine (CMS/HCC) (HCC) Social History Tobacco Use Types Packs/Day Years Used Date Smoking Tobacco: Never Assessed Comments Unknown Sex and Gender Information Value Date Recorded Sex Assigned at Not on file 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:53 AM OPERATIONS VICE PRESIDENT Gender Identity Not on file Sexual Orientation Not on file documented as of this encounter Plan of Treatment Not on file documented as of this encounter Visit Diagnoses Diagnosis Regional enteritis of small intestine (CMS/HCC) (HCC) Regional enteritis of small intestine documented in this encounter
--- OUTSIDE RECORDS SUMMARY | 2024-06-10 07:20 | XMS_ITS | Encounter Summary ---
Author Organization [facility] Facility Care Team Providers Care Associate Account Director Name Role Phone Unavailable Primary Care Provider Unavailabl e Encounter Details Date Type Department Care Team (Latest Contact Info) Description 08/09/2009 12:01 AM ORDER PICKER - 09/08/2009 11:59 PM CDT Hospital Encounter [facility] CLINCONV Myles Mahajan, DO [address] [place] [address] Regional enteritis of small intestine (CMS/HCC) (HCC) Social History Tobacco Use Types Packs/Day Years Used Date Smoking Tobacco: Never Assessed Comments Unknown Sex and Gender Information Value Date Recorded Sex Assigned at Not on file 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:53 AM ORDER PICKER Gender Identity Not on file Sexual Orientation Not on file documented as of this encounter Plan of Treatment Not on file documented as of this encounter Visit Diagnoses Diagnosis Regional enteritis of small intestine (CMS/HCC) (HCC) Regional enteritis of small intestine documented in this encounter
--- OUTSIDE RECORDS SUMMARY | 2024-06-10 07:21 | XMS_ITS | Encounter Summary ---
Author Organization [facility] Facility Care Team Providers Care Fruit Packer Name Role Phone Unavailable Primary Care Provider Unavailabl e Encounter Details Date Type Department Care Team (Latest Contact Info) Description 04/11/2009 12:01 AM CDT - 05/10/2009 11:59 PM INSPECTOR PLUG SEAM Hospital Encounter [facility] CLINCONV Myles Mahajan, DO [address] [place] [address] Regional enteritis of small intestine (CMS/HCC) (HCC) Social History Tobacco Use Types Packs/Day Years Used Date Smoking Tobacco: Never Assessed Comments Unknown Sex and Gender Information Value Date Recorded Sex Assigned at Not on file 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:53 AM INSPECTOR PLUG SEAM Gender Identity Not on file Sexual Orientation Not on file documented as of this encounter Plan of Treatment Not on file documented as of this encounter Visit Diagnoses Diagnosis Regional enteritis of small intestine (CMS/HCC) (HCC) Regional enteritis of small intestine documented in this encounter
--- OUTSIDE RECORDS SUMMARY | 2024-06-10 07:21 | XMS_ITS | Encounter Summary ---
Author Organization [facility] Facility Care Team Providers Care Pickling Machine Operator Name Role Phone Unavailable Primary Care Provider Unavailabl e Encounter Details Date Type Department Care Team (Latest Contact Info) Description 05/11/2009 8:45 AM BROWN SOURER - 06/10/2009 11:59 PM BROWN SOURER Hospital Encounter [facility] CLINCONV Lucia Rajan MD [address] [place] [address] Regional enteritis of small intestine (CMS/HCC) (HCC) Social History Tobacco Use Types Packs/Day Years Used Date Smoking Tobacco: Never Assessed Comments Unknown Sex and Gender Information Value Date Recorded Sex Assigned at Not on file 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:53 AM BROWN SOURER Gender Identity Not on file Sexual Orientation Not on file documented as of this encounter Plan of Treatment Not on file documented as of this encounter Visit Diagnoses Diagnosis Regional enteritis of small intestine (CMS/HCC) (HCC) Regional enteritis of small intestine documented in this encounter
--- OUTSIDE RECORDS SUMMARY | 2024-06-10 07:21 | XMS_ITS | Encounter Summary ---
Author Organization [facility] Facility Care Team Providers Care Software Configuration Manager Name Role Phone Unavailable Primary Care Provider Unavailabl e Encounter Details Date Type Department Care Team (Latest Contact Info) Description 06/11/2009 12:01 AM BULL GANG SUPERVISOR - 07/11/2009 11:59 PM BULL GANG SUPERVISOR Hospital Encounter [facility] CLINCONV Myles Mahajan, DO [address] [place] [address] Regional enteritis of small intestine (CMS/HCC) (HCC) Social History Tobacco Use Types Packs/Day Years Used Date Smoking Tobacco: Never Assessed Comments Unknown Sex and Gender Information Value Date Recorded Sex Assigned at Not on file 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:53 AM BULL GANG SUPERVISOR Gender Identity Not on file Sexual Orientation Not on file documented as of this encounter Plan of Treatment Not on file documented as of this encounter Visit Diagnoses Diagnosis Regional enteritis of small intestine (CMS/HCC) (HCC) Regional enteritis of small intestine documented in this encounter
--- OUTSIDE RECORDS SUMMARY | 2024-06-10 07:21 | XMS_ITS | Encounter Summary ---
Author Organization [facility] Facility Care Team Providers Care Trimming Operator Name Role Phone Unavailable Primary Care Provider Unavailabl e Encounter Details Date Type Department Care Team (Latest Contact Info) Description 07/12/2009 12:01 AM MINE ANALYST - 08/08/2009 11:59 PM MINE ANALYST Hospital Encounter [facility] Myles Mahajan, DO [address] [place] [address] Regional enteritis of small intestine (CMS/HCC) (HCC) Social History Tobacco Use Types Packs/Day Years Used Date Smoking Tobacco: Never Assessed Comments Unknown Sex and Gender Information Value Date Recorded Sex Assigned at Not on file 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:53 AM MINE ANALYST Gender Identity Not on file Sexual Orientation Not on file documented as of this encounter Plan of Treatment Not on file documented as of this encounter Visit Diagnoses Diagnosis Regional enteritis of small intestine (CMS/HCC) (HCC) Regional enteritis of small intestine documented in this encounter
--- OUTSIDE RECORDS SUMMARY | 2024-06-10 07:22 | XMS_ITS | Encounter Summary ---
Author Organization [facility] Facility Care Team Providers Care Crusher Foreman Name Role Phone Unavailable Primary Care Provider Unavailabl e Encounter Details Date Type Department Care Team (Latest Contact Info) Description 01/09/2009 12:01 AM CDT - 02/08/2009 11:59 PM CDT Hospital Encounter [facility] Myles Mahajan, DO [address] [place] [address] Regional enteritis of small intestine (CMS/HCC) (HCC) Social History Tobacco Use Types Packs/Day Years Used Date Smoking Tobacco: Never Assessed Comments Unknown Sex and Gender Information Value Date Recorded Sex Assigned at Not on file 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:53 AM DRAFTING ENGINEER Gender Identity Not on file Sexual Orientation Not on file documented as of this encounter Plan of Treatment Not on file documented as of this encounter Visit Diagnoses Diagnosis Regional enteritis of small intestine (CMS/HCC) (HCC) Regional enteritis of small intestine documented in this encounter
--- OUTSIDE RECORDS SUMMARY | 2024-06-10 07:22 | XMS_ITS | Encounter Summary ---
Author Organization [facility] Facility Care Team Providers Care Electronics Processing Supervisor Name Role Phone Unavailable Primary Care Provider Unavailabl e Encounter Details Date Type Department Care Team (Latest Contact Info) Description 09/09/2008 12:01 AM CDT - 10/08/2008 11:59 PM CDT Hospital Encounter [facility] Myles Mahajan, DO [address] [place] [address] Regional enteritis of small intestine (CMS/HCC) (HCC) Social History Tobacco Use Types Packs/Day Years Used Date Smoking Tobacco: Never Assessed Comments Unknown Sex and Gender Information Value Date Recorded Sex Assigned at Not on file 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:53 AM ROOF TRUSS DETAILER Gender Identity Not on file Sexual Orientation Not on file documented as of this encounter Plan of Treatment Not on file documented as of this encounter Visit Diagnoses Diagnosis Regional enteritis of small intestine (CMS/HCC) (HCC) Regional enteritis of small intestine documented in this encounter
--- OUTSIDE RECORDS SUMMARY | 2024-06-10 07:22 | XMS_ITS | Encounter Summary ---
Author Organization [facility] Facility Care Team Providers Care Senior Core Java Developer Name Role Phone Unavailable Primary Care Provider Unavailabl e Encounter Details Date Type Department Care Team (Latest Contact Info) Description 12/09/2008 12:01 AM CDT - 01/08/2009 11:59 PM CDT Hospital Encounter [facility] Myles Mahajan, DO [address] [place] [address] Regional enteritis of small intestine (CMS/HCC) (HCC) Social History Tobacco Use Types Packs/Day Years Used Date Smoking Tobacco: Never Assessed Comments Unknown Sex and Gender Information Value Date Recorded Sex Assigned at Not on file 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:53 AM RESEARCH PROGRAM INTERNSHIP Gender Identity Not on file Sexual Orientation Not on file documented as of this encounter Plan of Treatment Not on file documented as of this encounter Visit Diagnoses Diagnosis Regional enteritis of small intestine (CMS/HCC) (HCC) Regional enteritis of small intestine documented in this encounter
--- OUTSIDE RECORDS SUMMARY | 2024-06-10 07:22 | XMS_ITS | Encounter Summary ---
Author Organization [facility] Facility Care Team Providers Care Order Builder Loader Name Role Phone Unavailable Primary Care Provider Unavailabl e Encounter Details Date Type Department Care Team (Latest Contact Info) Description 02/09/2009 12:01 AM CDT - 03/10/2009 11:59 PM CDT Hospital Encounter [facility] CL[facility] Myles Mahajan, DO [address] [place] [address] Regional enteritis of small intestine (CMS/HCC) (HCC) Social History Tobacco Use Types Packs/Day Years Used Date Smoking Tobacco: Never Assessed Comments Unknown Sex and Gender Information Value Date Recorded Sex Assigned at Not on file 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:53 AM METALWORKER Gender Identity Not on file Sexual Orientation Not on file documented as of this encounter Plan of Treatment Not on file documented as of this encounter Visit Diagnoses Diagnosis Regional enteritis of small intestine (CMS/HCC) (HCC) Regional enteritis of small intestine documented in this encounter
--- OUTSIDE RECORDS SUMMARY | 2024-06-10 07:22 | XMS_ITS | Encounter Summary ---
Author Organization [facility] Facility Care Team Providers Care Furnace Repairer Name Role Phone Unavailable Primary Care Provider Unavailabl e Encounter Details Date Type Department Care Team (Latest Contact Info) Description 10/09/2008 12:01 AM CDT - 11/08/2008 11:59 PM CDT Hospital Encounter [facility] Myles Mahajan, DO [address] [place] [address] Regional enteritis of small intestine (CMS/HCC) (HCC) Social History Tobacco Use Types Packs/Day Years Used Date Smoking Tobacco: Never Assessed Comments Unknown Sex and Gender Information Value Date Recorded Sex Assigned at Not on file 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:53 AM CLERK FUNERAL DETAIL Gender Identity Not on file Sexual Orientation Not on file documented as of this encounter Plan of Treatment Not on file documented as of this encounter Visit Diagnoses Diagnosis Regional enteritis of small intestine (CMS/HCC) (HCC) Regional enteritis of small intestine documented in this encounter
--- OUTSIDE RECORDS SUMMARY | 2024-06-10 07:22 | XMS_ITS | Encounter Summary ---
Author Organization [facility] Facility Care Team Providers Care Qa Tech Name Role Phone Unavailable Primary Care Provider Unavailabl e Encounter Details Date Type Department Care Team (Latest Contact Info) Description 11/09/2008 12:01 AM CDT - 12/08/2008 11:59 PM CDT Hospital Encounter [facility] CL[facility] Myles Mahajan, DO [address] [place] [address] Regional enteritis of small intestine (CMS/HCC) (HCC) Social History Tobacco Use Types Packs/Day Years Used Date Smoking Tobacco: Never Assessed Comments Unknown Sex and Gender Information Value Date Recorded Sex Assigned at Not on file 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:53 AM SHINGLES ROOFER HELPER Gender Identity Not on file Sexual Orientation Not on file documented as of this encounter Plan of Treatment Not on file documented as of this encounter Visit Diagnoses Diagnosis Regional enteritis of small intestine (CMS/HCC) (HCC) Regional enteritis of small intestine documented in this encounter
--- OUTSIDE RECORDS SUMMARY | 2024-06-10 07:22 | XMS_ITS | Encounter Summary ---
Author Organization [facility] Facility Care Team Providers Care Crisis Intervention Specialist Name Role Phone Unavailable Primary Care Provider Unavailabl e Encounter Details Date Type Department Care Team (Latest Contact Info) Description 03/11/2009 12:01 AM CDT - 04/10/2009 11:59 PM CDT Hospital Encounter [facility] Myles Mahajan, DO [address] [place] [address] Regional enteritis of small intestine (CMS/HCC) (HCC) Social History Tobacco Use Types Packs/Day Years Used Date Smoking Tobacco: Never Assessed Comments Unknown Sex and Gender Information Value Date Recorded Sex Assigned at Not on file 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:53 AM CHEMICAL MANAGER Gender Identity Not on file Sexual Orientation Not on file documented as of this encounter Plan of Treatment Not on file documented as of this encounter Visit Diagnoses Diagnosis Regional enteritis of small intestine (CMS/HCC) (HCC) Regional enteritis of small intestine documented in this encounter
--- OUTSIDE RECORDS SUMMARY | 2024-06-10 07:23 | XMS_ITS | Encounter Summary ---
Author Organization [facility] Facility Care Team Providers Care Consulting Marine Engineer Name Role Phone Unavailable Primary Care Provider Unavailabl e Encounter Details Date Type Department Care Team (Latest Contact Info) Description 06/11/2008 12:01 AM PHARMACY SALES REPRESENTATIVE - 07/11/2008 11:59 PM PHARMACY SALES REPRESENTATIVE Hospital Encounter [facility] Myles Mahajan, DO [address] [place] [address] Regional enteritis of small intestine (CMS/HCC) (HCC) Social History Tobacco Use Types Packs/Day Years Used Date Smoking Tobacco: Never Assessed Comments Unknown Sex and Gender Information Value Date Recorded Sex Assigned at Not on file 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:53 AM PHARMACY SALES REPRESENTATIVE Gender Identity Not on file Sexual Orientation Not on file documented as of this encounter Plan of Treatment Not on file documented as of this encounter Visit Diagnoses Diagnosis Regional enteritis of small intestine (CMS/HCC) (HCC) Regional enteritis of small intestine documented in this encounter
--- OUTSIDE RECORDS SUMMARY | 2024-06-10 07:23 | XMS_ITS | Encounter Summary ---
Author Organization [facility] Facility Care Team Providers Care Parent Coach Name Role Phone Unavailable Primary Care Provider Unavailabl e Encounter Details Date Type Department Care Team (Latest Contact Info) Description 08/09/2008 12:01 AM GUN STOCKER - 09/08/2008 11:59 PM CDT Hospital Encounter [facility] CL[facility] Myles Mhaajan, DO [address] [place] [address] Regional enteritis of small intestine (CMS/HCC) (HCC) Social History Tobacco Use Types Packs/Day Years Used Date Smoking Tobacco: Never Assessed Comments Unknown Sex and Gender Information Value Date Recorded Sex Assigned at Not on file 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:53 AM GUN STOCKER Gender Identity Not on file Sexual Orientation Not on file documented as of this encounter Plan of Treatment Not on file documented as of this encounter Visit Diagnoses Diagnosis Regional enteritis of small intestine (CMS/HCC) (HCC) Regional enteritis of small intestine documented in this encounter
--- OUTSIDE RECORDS SUMMARY | 2024-06-10 07:23 | XMS_ITS | Encounter Summary ---
Author Organization [facility] Facility Care Team Providers Care Geological Engineer Name Role Phone Unavailable Primary Care Provider Unavailabl e Encounter Details Date Type Department Care Team (Latest Contact Info) Description 07/12/2008 12:01 AM SPACE AND STORAGE CLERK - 08/08/2008 11:59 PM SPACE AND STORAGE CLERK Hospital Encounter [facility] Myles Mahajan, DO [address] [place] [address] Regional enteritis of small intestine (CMS/HCC) (HCC) Social History Tobacco Use Types Packs/Day Years Used Date Smoking Tobacco: Never Assessed Comments Unknown Sex and Gender Information Value Date Recorded Sex Assigned at Not on file 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:53 AM SPACE AND STORAGE CLERK Gender Identity Not on file Sexual Orientation Not on file documented as of this encounter Plan of Treatment Not on file documented as of this encounter Visit Diagnoses Diagnosis Regional enteritis of small intestine (CMS/HCC) (HCC) Regional enteritis of small intestine documented in this encounter
--- OUTSIDE RECORDS SUMMARY | 2024-06-10 07:23 | XMS_ITS | Encounter Summary ---
Author Organization [facility] Facility Care Team Providers Care Cryptologic Technician Technical Name Role Phone Unavailable Primary Care Provider Unavailabl e Encounter Details Date Type Department Care Team (Latest Contact Info) Description 09/23/2008 6:26 AM CDT - 09/23/2008 7:10 AM CDT Hospital Encounter [facility] Myles Mahajan, DO [address] [place] [address] Other dysphagia; Other postprocedural states Social History Tobacco Use Types Packs/Day Years Used Date Smoking Tobacco: Never Assessed Comments Unknown Sex and Gender Information Value Date Recorded Sex Assigned at Not on file 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:53 AM SHEET METAL SUPERINTENDENT Gender Identity Not on file Sexual Orientation Not on file documented as of this encounter Plan of Treatment Not on file documented as of this encounter Visit Diagnoses Diagnosis Other dysphagia Other postprocedural states documented in this encounter
--- OUTSIDE RECORDS SUMMARY | 2024-06-10 07:23 | XMS_ITS | Encounter Summary ---
Author Organization [facility] Facility Care Team Providers Care Pie Maker Machine Name Role Phone Unavailable Primary Care Provider Unavailabl e Encounter Details Date Type Department Care Team (Latest Contact Info) Description 05/11/2008 12:01 AM SAND WORKER - 06/10/2008 11:59 PM SAND WORKER Hospital Encounter [facility] CL[facility] Myles Mahajan, DO [address] [place] [address] Regional enteritis of small intestine (CMS/HCC) (HCC) Social History Tobacco Use Types Packs/Day Years Used Date Smoking Tobacco: Never Assessed Comments Unknown Sex and Gender Information Value Date Recorded Sex Assigned at Not on file 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:53 AM SAND WORKER Gender Identity Not on file Sexual Orientation Not on file documented as of this encounter Plan of Treatment Not on file documented as of this encounter Visit Diagnoses Diagnosis Regional enteritis of small intestine (CMS/HCC) (HCC) Regional enteritis of small intestine documented in this encounter
--- OUTSIDE RECORDS SUMMARY | 2024-06-10 07:24 | XMS_ITS | Encounter Summary ---
Author Organization [facility] Facility Care Team Providers Care Consumer Experience Consultant Name Role Phone Unavailable Primary Care Provider Unavailabl e Encounter Details Date Type Department Care Team (Late st Contact Info) Description 04/11/2008 12:01 AM CDT - 05/10/2008 11:59 PM FUR MACHINE OPERATOR Hospital Encounter [facility] CL[facility] Myles Mahajan, DO [address] [place] [address] Social History Tobacco Use Types Packs/Day Years Used Date Smoking Tobacco: Never Assessed Comments Unknown Sex and Gender Information Value Date Recorded Sex Assigned at Not on file 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:53 AM FUR MACHINE OPERATOR Gender Identity Not on file Sexual Orientation Not on file documented as of this encounter Plan of Treatment Not on file documented as of this encounter Visit Diagnoses Not on filedocumented in this encounter
--- OUTSIDE RECORDS SUMMARY | 2024-06-10 07:24 | XMS_ITS | Encounter Summary ---
Author Organization [facility] Facility Care Team Providers Care Beater Room Supervisor Name Role Phone Unavailable Primary Care Provider Unavailabl e Encounter Details Date Type Department Care Team (Late st Contact Info) Description 02/10/2008 12:01 AM CDT - 03/10/2008 11:59 PM CDT Hospital Encounter [facility] CL[facility] Myles Mahajan, DO [address] [place] [address] Social History Tobacco Use Types Packs/Day Years Used Date Smoking Tobacco: Never Assessed Comments Unknown Sex and Gender Information Value Date Recorded Sex Assigned at Not on file 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:53 AM VESSEL ENGINEER Gender Identity Not on file Sexual Orientation Not on file documented as of this encounter Plan of Treatment Not on file documented as of this encounter Visit Diagnoses Not on filedocumented in this encounter
--- OUTSIDE RECORDS SUMMARY | 2024-06-10 07:24 | XMS_ITS | Encounter Summary ---
Author Organization [facility] Facility Care Team Providers Care Forensic Manager Name Role Phone Unavailable Primary Care Provider Unavailabl e Encounter Details Date Type Department Care Team (Late st Contact Info) Description 03/11/2008 12:01 AM CDT - 04/10/2008 11:59 PM CDT Hospital Encounter [facility] CLIN[facility] Myles Mahajan, DO [address] [place] [address] Social History Tobacco Use Types Packs/Day Years Used Date Smoking Tobacco: Never Assessed Comments Unknown Sex and Gender Information Value Date Recorded Sex Assigned at Not on file Legal Sex Female 2:53 AM ENGINEERING ADMINISTRATOR Gender Identity Not on file Sexual Orientation Not on file documented as of this encounter Plan of Treatment Not on file documented as of this encounter Visit Diagnoses Not on filedocumented in this encounter
--- OUTSIDE RECORDS SUMMARY | 2024-06-10 07:25 | XMS_ITS | Encounter Summary ---
Author Organization [facility] Facility Care Team Providers Care Electric Razor Assembler Name Role Phone Unavailable Primary Care Provider Unavailabl e Encounter Details Date Type Department Care Team (Late st Contact Info) Description 10/10/2007 12:01 AM CDT - 11/09/2007 11:59 PM CDT Hospital Encounter [facility] CL[facility] Myles Mahajan, DO [address] [place] [address] Social History Tobacco Use Types Packs/Day Years Used Date Smoking Tobacco: Never Assessed Comments Unknown Sex and Gender Information Value Date Recorded Sex Assigned at Not on file Legal Sex Female 2:53 AM INDUSTRIAL CONTROLLER Gender Identity Not on file Sexual Orientation Not on file documented as of this encounter Plan of Treatment Not on file documented as of this encounter Visit Diagnoses Not on filedocumented in this encounter
--- OUTSIDE RECORDS SUMMARY | 2024-06-10 07:25 | XMS_ITS | Encounter Summary ---
Author Organization [facility] Facility Care Team Providers Care Automotive Warranty Administrator Name Role Phone Unavailable Primary Care Provider Unavailabl e Encounter Details Date Type Department Care Team (Late st Contact Info) Description 01/10/2008 12:01 AM CDT - 02/09/2008 11:59 PM CDT Hospital Encounter [facility] CLIN[facility] Myles Mahajan, DO [address] [place] [address] Social History Tobacco Use Types Packs/Day Years Used Date Smoking Tobacco: Never Assessed Comments Unknown Sex and Gender Information Value Date Recorded Sex Assigned at Not on file Legal Sex Female 2:53 AM SPECIAL OFFICER Gender Identity Not on file Sexual Orientation Not on file documented as of this encounter Plan of Treatment Not on file documented as of this encounter Visit Diagnoses Not on filedocumented in this encounter
--- OUTSIDE RECORDS SUMMARY | 2024-06-10 07:25 | XMS_ITS | Encounter Summary ---
Author Organization [facility] Facility Care Team Providers Care Lead Ramp Agent Name Role Phone Unavailable Primary Care Provider Unavailabl e Encounter Details Date Type Department Care Team (Late st Contact Info) Description 09/19/2007 1:22 PM CDT - 10/09/2007 11:59 PM CDT Hospital Encounter [facility] CL[facility] Myles Mahajan, DO [address] [place] [address] Social History Tobacco Use Types Packs/Day Years Used Date Smoking Tobacco: Never Assessed Comments Unknown Sex and Gender Information Value Date Recorded Sex Assigned at Not on file Legal Sex Female 2:53 AM BULK PALLET BUILDER Gender Identity Not on file Sexual Orientation Not on file documented as of this encounter Plan of Treatment Not on file documented as of this encounter Visit Diagnoses Not on filedocumented in this encounter
--- OUTSIDE RECORDS SUMMARY | 2024-06-10 07:25 | XMS_ITS | Encounter Summary ---
Author Organization [facility] Facility Care Team Providers Care Therapeutic Riding Instructor Name Role Phone Unavailable Primary Care Provider Unavailabl e Encounter Details Date Type Department Care Team (Late st Contact Info) Description 08/10/2007 12:01 AM FOREPART RASPER - 09/09/2007 11:59 PM CDT Hospital Encounter [facility] CL[facility]CON[facility] Myles Mahajan, DO [address] [place] [address] Social History Tobacco Use Types Packs/Day Years Used Date Smoking Tobacco: Never Assessed Comments Unknown Sex and Gender Information Value Date Recorded Sex Assigned at Not on file Legal Sex Female 2:53 AM FOREPART RASPER Gender Identity Not on file Sexual Orientation Not on file documented as of this encounter Plan of Treatment Not on file documented as of this encounter Visit Diagnoses Not on filedocumented in this encounter
--- OUTSIDE RECORDS SUMMARY | 2024-06-10 07:25 | XMS_ITS | Encounter Summary ---
Author Organization [facility] Facility Care Team Providers Care Landscape Manager Name Role Phone Unavailable Primary Care Provider Unavailabl e Encounter Details Date Type Department Care Team (Late st Contact Info) Description 12/10/2007 12:01 AM CDT - 01/09/2008 11:59 PM CDT Hospital Encounter [facility] CLIN[facility] Myles Mahajan, DO [address] [place] [address] Social History Tobacco Use Types Packs/Day Years Used Date Smoking Tobacco: Never Assessed Comments Unknown Sex and Gender Information Value Date Recorded Sex Assigned at Not on file Legal Sex Female 2:53 AM PHYSICAL THERAPY ASST Gender Identity Not on file Sexual Orientation Not on file documented as of this encounter Plan of Treatment Not on file documented as of this encounter Visit Diagnoses Not on filedocumented in this encounter
--- OUTSIDE RECORDS SUMMARY | 2024-06-10 07:25 | XMS_ITS | Encounter Summary ---
Author Organization [facility] Facility Care Team Providers Care Health Education Specialist Name Role Phone Unavailable Primary Care Provider Unavailabl e Encounter Details Date Type Department Care Team (Late st Contact Info) Description 11/10/2007 12:01 AM CDT - 12/09/2007 11:59 PM CDT Hospital Encounter [facility] CLINCON[facility] Myles Mahajan, DO [address] [place] [address] Social History Tobacco Use Types Packs/Day Years Used Date Smoking Tobacco: Never Assessed Comments Unknown Sex and Gender Information Value Date Recorded Sex Assigned at Not on file Legal Sex Female 2:53 AM DIRECTOR SPEECH LANGUAGE Gender Identity Not on file Sexual Orientation Not on file documented as of this encounter Plan of Treatment Not on file documented as of this encounter Visit Diagnoses Not on filedocumented in this encounter
--- OUTSIDE RECORDS SUMMARY | 2024-06-10 07:25 | XMS_ITS | Encounter Summary ---
Author Organization [facility] Facility Care Team Providers Care Home Organizer Name Role Phone Unavailable Primary Care Provider Unavailabl e Encounter Details Date Type Department Care Team (Late st Contact Info) Description 07/12/2007 12:01 AM EAP COUNSELOR - 08/09/2007 11:59 PM EAP COUNSELOR Hospital Encounter [facility] CL[facility] Myles Mahajan, DO [address] [place] [address] Social History Tobacco Use Types Packs/Day Years Used Date Smoking Tobacco: Never Assessed Comments Unknown Sex and Gender Information Value Date Recorded Sex Assigned at Not on file Legal Sex Female 2:53 AM EAP COUNSELOR Gender Identity Not on file Sexual Orientation Not on file documented as of this encounter Plan of Treatment Not on file documented as of this encounter Visit Diagnoses Not on filedocumented in this encounter
--- OUTSIDE RECORDS SUMMARY | 2024-06-10 07:26 | XMS_ITS | Encounter Summary ---
Author Organization [facility] Facility Care Team Providers Care Exhibition Specialist Name Role Phone Unavailable Primary Care Provider Unavailabl e Encounter Details Date Type Department Care Team (Late st Contact Info) Description 03/11/2007 12:01 AM CDT - 04/10/2007 11:59 PM CDT Hospital Encounter [facility] CL[facility] Myles Mahajan, DO [address] [place] [address] Social History Tobacco Use Types Packs/Day Years Used Date Smoking Tobacco: Never Assessed Comments Unknown Sex and Gender Information Value Date Recorded Sex Assigned at Not on file Legal Sex Female 2:53 AM ELECTRICAL LOGGING ENGINEER Gender Identity Not on file Sexual Orientation Not on file documented as of this encounter Plan of Treatment Not on file documented as of this encounter Visit Diagnoses Not on filedocumented in this encounter
--- OUTSIDE RECORDS SUMMARY | 2024-06-10 07:26 | XMS_ITS | Encounter Summary ---
Author Organization [facility] Facility Care Team Providers Care Director Of Strategic Initiatives Name Role Phone Unavailable Primary Care Provider Unavailabl e Encounter Details Date Type Department Care Team (Late st Contact Info) Description 04/11/2007 12:01 AM CDT - 05/10/2007 11:59 PM ORDER DEPARTMENT SUPERVISOR Hospital Encounter [facility] CL[facility]CON[facility] Myles Mahajan, DO [address] [place] [address] Social History Tobacco Use Types Packs/Day Years Used Date Smoking Tobacco: Never Assessed Comments Unknown Sex and Gender Information Value Date Recorded Sex Assigned at Not on file Legal Sex Female 2:53 AM ORDER DEPARTMENT SUPERVISOR Gender Identity Not on file Sexual Orientation Not on file documented as of this encounter Plan of Treatment Not on file documented as of this encounter Visit Diagnoses Not on filedocumented in this encounter
--- OUTSIDE RECORDS SUMMARY | 2024-06-10 07:26 | XMS_ITS | Encounter Summary ---
Author Organization [facility] Facility Care Team Providers Care Library Manager Name Role Phone Unavailable Primary Care Provider Unavailabl e Encounter Details Date Type Department Care Team (Late st Contact Info) Description 02/09/2007 12:01 AM CDT - 03/10/2007 11:59 PM CDT Hospital Encounter [facility] CL[facility]CON[facility] Myles Mahajan, DO [address] [place] [address] Social History Tobacco Use Types Packs/Day Years Used Date Smoking Tobacco: Never Assessed Comments Unknown Sex and Gender Information Value Date Recorded Sex Assigned at Not on file Legal Sex Female 2:53 AM CONTACT LENS BLOCKER AND CUTTER Gender Identity Not on file Sexual Orientation Not on file documented as of this encounter Plan of Treatment Not on file documented as of this encounter Visit Diagnoses Not on filedocumented in this encounter
--- OUTSIDE RECORDS SUMMARY | 2024-06-10 07:26 | XMS_ITS | Encounter Summary ---
Author Organization [facility] Facility Care Team Providers Care Formulation Scientist Name Role Phone Unavailable Primary Care Provider Unavailabl e Encounter Details Date Type Department Care Team (Late st Contact Info) Description 05/11/2007 12:01 AM MIDWIFE AND BIRTH CENTER OWNER - 06/10/2007 11:59 PM MIDWIFE AND BIRTH CENTER OWNER Hospital Encounter [facility] CLINCON[facility] Myles Mahajan, DO [address] [place] [address] Social History Tobacco Use Types Packs/Day Years Used Date Smoking Tobacco: Never Assessed Comments Unknown Sex and Gender Information Value Date Recorded Sex Assigned at Not on file Legal Sex Female 2:53 AM MIDWIFE AND BIRTH CENTER OWNER Gender Identity Not on file Sexual Orientation Not on file documented as of this encounter Plan of Treatment Not on file documented as of this encounter Visit Diagnoses Not on filedocumented in this encounter
--- OUTSIDE RECORDS SUMMARY | 2024-06-10 07:26 | XMS_ITS | Encounter Summary ---
Author Organization [facility] Facility Care Team Providers Care Hog Raiser Name Role Phone Unavailable Primary Care Provider Unavailabl e Encounter Details Date Type Department Care Team (Late st Contact Info) Description 01/09/2007 12:01 AM CDT - 02/08/2007 11:59 PM CDT Hospital Encounter [facility] CLINCON[facility] Myles Mahajan, DO [address] [place] [address] Social History Tobacco Use Types Packs/Day Years Used Date Smoking Tobacco: Never Assessed Comments Unknown Sex and Gender Information Value Date Recorded Sex Assigned at Not on file Legal Sex Female 2:53 AM LOCUM TENENS HOSPITALIST Gender Identity Not on file Sexual Orientation Not on file documented as of this encounter Plan of Treatment Not on file documented as of this encounter Visit Diagnoses Not on filedocumented in this encounter
--- OUTSIDE RECORDS SUMMARY | 2024-06-10 07:26 | XMS_ITS | Encounter Summary ---
Author Organization [facility] Facility Care Team Providers Care Geriatric Social Worker Name Role Phone Unavailable Primary Care Provider Unavailabl e Encounter Details Date Type Department Care Team (Late st Contact Info) Description 06/11/2007 12:01 AM PRIZE FIGHTER - 07/11/2007 11:59 PM PRIZE FIGHTER Hospital Encounter [facility] CL[facility] Myles Mahajan, DO [address] [place] [address] Social History Tobacco Use Types Packs/Day Years Used Date Smoking Tobacco: Never Assessed Comments Unknown Sex and Gender Information Value Date Recorded Sex Assigned at Not on file Legal Sex Female 2:53 AM PRIZE FIGHTER Gender Identity Not on file Sexual Orientation Not on file documented as of this encounter Plan of Treatment Not on file documented as of this encounter Visit Diagnoses Not on filedocumented in this encounter
--- OUTSIDE RECORDS SUMMARY | 2024-06-10 07:26 | XMS_ITS | Encounter Summary ---
Author Organization [facility] Facility Care Team Providers Care Roller Checker Name Role Phone Unavailable Primary Care Provider Unavailabl e Encounter Details Date Type Department Care Team (Late st Contact Info) Description 12/10/2006 11:50 AM CDT - 12/13/2006 12:01 AM CDT Hospital Encounter [facility] CL[facility] Myles Mahajan, DO [address] [place] [address] Social History Tobacco Use Types Packs/Day Years Used Date Smoking Tobacco: Never Assessed Comments Unknown Sex and Gender Information Value Date Recorded Sex Assigned at Not on file Legal Sex Female 2:53 AM VICE PRESIDENT INVESTOR RELATIONS Gender Identity Not on file Sexual Orientation Not on file documented as of this encounter Plan of Treatment Not on file documented as of this encounter Visit Diagnoses Not on filedocumented in this encounter
--- OUTSIDE RECORDS SUMMARY | 2024-06-10 07:26 | XMS_ITS | Encounter Summary ---
Author Organization [facility] Facility Care Team Providers Care Product Safety Tester Name Role Phone Unavailable Primary Care Provider Unavailabl e Encounter Details Date Type Department Care Team (Late st Contact Info) Description 12/09/2006 12:01 AM CDT - 01/08/2007 11:59 PM CDT Hospital Encounter [facility] CLIN[facility] Myles Mahajan, DO [address] [place] [address] Social History Tobacco Use Types Packs/Day Years Used Date Smoking Tobacco: Never Assessed Comments Unknown Sex and Gender Information Value Date Recorded Sex Assigned at Not on file Legal Sex Female 2:53 AM ACCOUNTANT BOOKKEEPER Gender Identity Not on file Sexual Orientation Not on file documented as of this encounter Plan of Treatment Not on file documented as of this encounter Visit Diagnoses Not on filedocumented in this encounter
--- OUTSIDE RECORDS SUMMARY | 2024-06-10 07:27 | XMS_ITS | Encounter Summary ---
Author Organization [facility] Facility Care Team Providers Care Filtration Plant Operator Name Role Phone Unavailable Primary Care Provider Unavailabl e Encounter Details Date Type Department Care Team (Late st Contact Info) Description 08/09/2006 12:01 AM INSURANCE AGENTS SUPERVISOR - 09/08/2006 11:59 PM CDT Hospital Encounter [facility] CL[facility] Myles Mahajan, DO [address] [place] [address] Social History Tobacco Use Types Packs/Day Years Used Date Smoking Tobacco: Never Assessed Comments Unknown Sex and Gender Information Value Date Recorded Sex Assigned at Not on file Legal Sex Female 2:53 AM INSURANCE AGENTS SUPERVISOR Gender Identity Not on file Sexual Orientation Not on file documented as of this encounter Plan of Treatment Not on file documented as of this encounter Visit Diagnoses Not on filedocumented in this encounter
--- OUTSIDE RECORDS SUMMARY | 2024-06-10 07:27 | XMS_ITS | Encounter Summary ---
Author Organization [facility] Facility Care Team Providers Care Executive Administrative Asst Name Role Phone Unavailable Primary Care Provider Unavailabl e Encounter Details Date Type Department Care Team (Late st Contact Info) Description 10/09/2006 12:01 AM CDT - 11/08/2006 11:59 PM CDT Hospital Encounter [facility] CLINCON[facility] Myles Mahajan, DO [address] [place] [address] Social History Tobacco Use Types Packs/Day Years Used Date Smoking Tobacco: Never Assessed Comments Unknown Sex and Gender Information Value Date Recorded Sex Assigned at Not on file Legal Sex Female 2:53 AM BOLTER HELPER Gender Identity Not on file Sexual Orientation Not on file documented as of this encounter Plan of Treatment Not on file documented as of this encounter Visit Diagnoses Not on filedocumented in this encounter
--- OUTSIDE RECORDS SUMMARY | 2024-06-10 07:27 | XMS_ITS | Encounter Summary ---
Author Organization [facility] Facility Care Team Providers Care Flat Sorting Machine Clerk Name Role Phone Unavailable Primary Care Provider Unavailabl e Encounter Details Date Type Department Care Team (Late st Contact Info) Description 07/12/2006 12:01 AM PROGRAMMER - 08/08/2006 11:59 PM PROGRAMMER Hospital Encounter [facility] CL[facility] Myles Mahajan, DO [address] [place] [address] Social History Tobacco Use Types Packs/Day Years Used Date Smoking Tobacco: Never Assessed Comments Unknown Sex and Gender Information Value Date Recorded Sex Assigned at Not on file Legal Sex Female 2:53 AM PROGRAMMER Gender Identity Not on file Sexual Orientation Not on file documented as of this encounter Plan of Treatment Not on file documented as of this encounter Visit Diagnoses Not on filedocumented in this encounter
--- OUTSIDE RECORDS SUMMARY | 2024-06-10 07:27 | XMS_ITS | Encounter Summary ---
Author Organization [facility] Facility Care Team Providers Care Quality Systems Engineer Name Role Phone Unavailable Primary Care Provider Unavailabl e Encounter Details Date Type Department Care Team (Late st Contact Info) Description 06/11/2006 12:01 AM FINANCIAL ADMINISTRATOR - 07/11/2006 11:59 PM FINANCIAL ADMINISTRATOR Hospital Encounter [facility] CLINCON[facility] Myles Mahajan, DO [address] [place] [address] Social History Tobacco Use Types Packs/Day Years Used Date Smoking Tobacco: Never Assessed Comments Unknown Sex and Gender Information Value Date Recorded Sex Assigned at Not on file Legal Sex Female 2:53 AM FINANCIAL ADMINISTRATOR Gender Identity Not on file Sexual Orientation Not on file documented as of this encounter Plan of Treatment Not on file documented as of this encounter Visit Diagnoses Not on filedocumented in this encounter
--- OUTSIDE RECORDS SUMMARY | 2024-06-10 07:27 | XMS_ITS | Encounter Summary ---
Author Organization [facility] Facility Care Team Providers Care Jewelry Polisher Name Role Phone Unavailable Primary Care Provider Unavailabl e Encounter Details Date Type Department Care Team (Late st Contact Info) Description 11/09/2006 12:01 AM CDT - 12/08/2006 11:59 PM CDT Hospital Encounter [facility] CL[facility] Myles Mahajan, DO [address] [place] [address] Social History Tobacco Use Types Packs/Day Years Used Date Smoking Tobacco: Never Assessed Comments Unknown Sex and Gender Information Value Date Recorded Sex Assigned at Not on file Legal Sex Female 2:53 AM CASTING PLUG ASSEMBLER Gender Identity Not on file Sexual Orientation Not on file documented as of this encounter Plan of Treatment Not on file documented as of this encounter Visit Diagnoses Not on filedocumented in this encounter
--- OUTSIDE RECORDS SUMMARY | 2024-06-10 07:27 | XMS_ITS | Encounter Summary ---
Author Organization [facility] Facility Care Team Providers Care Logistics Analytics Manager Name Role Phone Unavailable Primary Care Provider Unavailabl e Encounter Details Date Type Department Care Team (Late st Contact Info) Description 09/09/2006 12:01 AM CDT - 10/08/2006 11:59 PM CDT Hospital Encounter [facility] CLIN[facility] Myles Mahajan, DO [address] [place] [address] Social History Tobacco Use Types Packs/Day Years Used Date Smoking Tobacco: Never Assessed Comments Unknown Sex and Gender Information Value Date Recorded Sex Assigned at Not on file Legal Sex Female 2:53 AM RECORDING ARTIST Gender Identity Not on file Sexual Orientation Not on file documented as of this encounter Plan of Treatment Not on file documented as of this encounter Visit Diagnoses Not on filedocumented in this encounter
== END 2024-06-03 08:30 | disposition home or self-care (01) ==
PROVIDERS: PCP Emergency Medicine; Visit Provider Emergency Medicine
DX: Z12.31 Encounter for screening mammogram for malignant neoplasm of breast (principal)
CPT/HCPCS: 77063; 77067

== ENCOUNTER 2024-06-26 05:52 | Day surgery (SDC) | payer OTHER, SELFPAY ==
[2024-06-06 11:27] VITALS: BMI 23.8
[2024-06-26] VITALS (8 sets, daily range): BP systolic 122–156; BP diastolic 72–94; PULSE 74–88; RESP 11–18; TEMP 36.6; O2SAT 93–99
--- NOTE | ~2024-06-26 | XR_ITS ---
EXAMINATION: XR surgery orthopedic DATE: 06/26/2024 08:33 INDICATION: Right basal joint arthroplasty TECHNIQUE: 4 fluoroscopic images of portions of the right hand were obtained during procedure perform ed by Dr. Jimenes. Radiologist was not present for the imaging or procedure. The amount of fluoros copy time used during this procedure was 0.4 minutes. COMPARISON: Radiographs dated 06/20/2023 FINDINGS: There is widening of the triscaphe, first carpometacarpal and metacarpophalangeal joints and Top Icer im age likely reflecting traction upon the thumb. Subsequent images demonstrate resection of the trapezi um. Final images demonstrate release of the traction upon the thumb and metallic buttons projecting a long the base of the first and second metacarpals likely for a tightrope type fixation between the ba se of the first and second metacarpals. Expected mild subsidence of the base of the first metacarpal partially occupying the space of the resected trapezium. No fractures identified. IMPRESSION: 1. Expected appearance post first carpal metacarpal arthroplasty with resection of the trapezium. See procedure note for further detail. Reviewed, dictated and finalized at location B. TION CLASSIFICATION MANAGER
--- NOTE | 2024-06-26 06:51 | PM.HPGS ---
History of Present Illness History of Present Illness Chief complaint: Osteoarthritis First Carpometacarpal Joint RT Hand Narrative: Patient seen and examined in pre-operative holding area. No interval change in medical history or symptoms. Patient recalls previous discussion of benefits and alternatives to procedure. Continues to desire to proceed with right basal joint arthroplasty with mini-tightrope . Reviewed procedure, post-op expectations and risks including but not limited to bleeding, infection, injury to tendon/nerve/vessel, decreased hand function, stiffness, RSD, no change or worsening of symptoms. I discussed the possible use of assistants and their participation in the case. Patient stated understanding and signed the consent form wishing to proceed. Review of Systems Review of Systems: All systems reviewed & are unremarkable except as noted in HPI and below PMFSH Past Medical History Medical History Acute flank pain Anxiety Contact dermatitis Crohn's disease Dental infection Elevated cholesterol Fatigue HTN (hypertension) HTN (hypertension) Hypotensive episode Hypothyroidism associated with surgical procedure Insomnia Kidney stone Other screening mammogram Primary osteoarthritis involving multiple joints Thyroid cancer Thyroid nodule Urolithiasis UTI (urinary tract infection) Visit for suture removal Surgical History Surgical History H/O: hysterectomy Open KLARISSA with bilateral SPO History of cholecystectomy Cholecystectomy during hiatal hernia repair History of repair of hiatal hernia Open hiatal hernia repair 8-9 years ago. History of thyroidectomy Family History Family History Mother Acute myocardial infarction Social History Social History Social History: She wishes to be listed as a Full Code. PCP: Dr. Mcfarland Caffeine-decaf tea, occasional soda Smoking packs per day: 0.5 Smoking cigarettes per day: 10.0 Years smoked: 15 Smoking pack-years: 7.50 Smoking status: Former smoker Tobacco type: cigarettes Second hand tobacco smoke exposure: No Smoking end date: 06/11/00 Alcohol intake: current Alcohol use details: patient drinks about 2 times per month. Occasional Substance use: never Substance use type: does not use Do You Feel Safe in your Home?: Yes Lack of Transportation: No Lack of Food: Never True Current Housing: I Have Housing Concerned About Future Housing: No Difficulty Paying Gas/Electric Bills: No Difficulty Paying for Meds: YES Currently Unemployed: No Education: High School Diploma/GED Difficulty w/ Childcare or Family Care: No Living arrangements: with family Gender identity (if verbalized by the patient): Female Spiritual care concerns: No Meds Home Medications and Allergies Home Medications ?Medication ?Instructions ?Recorded ?Confirmed ?Type infliximab 100 mg intravenous 100 mg IV [id number] 01/06/23 06/06/24 History solution (Remicade) glucosamine HCl 500 mg tablet 500 mg PO BID 06/13/23 06/06/24 History losartan 50 mg tablet See Rx Instructions .Route 12/14/23 06/06/24 Rx .COMPLEX #90 tabs topiramate 50 mg tablet See Rx Instructions .Route 12/14/23 06/06/24 Rx .COMPLEX #180 tabs amitriptyline 25 mg tablet See Rx Instructions .Route 12/26/23 06/26/24 Rx .COMPLEX #90 tabs atogepant 60 mg tablet (Qulipta) See Rx Instructions .Route 02/04/24 06/06/24 Rx .COMPLEX #90 tabs ubrogepant 100 mg tablet (Ubrelvy) 100 mg PO ONCE #48 tabs 02/19/24 06/06/24 Rx quetiapine 100 mg tablet 100 mg PO QHS #90 tabs 02/21/24 06/06/24 Rx triamcinolone acetonide 0.1 % See Rx Instructions .Route 03/07/24 06/06/24 Rx topical ointment .COMPLEX #80 grams dicyclomine 20 mg tablet See Rx Instructions .Route 03/12/24 06/26/24 Rx .COMPLEX #90 tabs right custom fitted hand based #1 ea 03/20/24 04/21/24 Rx splint ondansetron 4 mg disintegrating 4 mg PO Q6H PRN nausea and 04/21/24 06/06/24 Rx tablet vomiting #20 tabs sertraline 100 mg tablet 100 mg PO DAILY #90 tabs 04/21/24 06/06/24 Rx naproxen 500 mg tablet See Rx Instructions .Route 05/07/24 06/06/24 Rx .COMPLEX #60 tabs levothyroxine 125 mcg tablet 125 mcg PO DAILY #90 tabs 06/02/24 06/26/24 Rx alprazolam 0.5 mg tablet 0.5 mg PO QID PRN anxiety #40 tabs 06/09/24 06/26/24 Rx eszopiclone 2 mg tablet 2 mg PO QHS #30 tabs 06/09/24 06/26/24 Rx amlodipine 5 mg tablet See Rx Instructions .Route 06/17/24 06/26/24 Rx .COMPLEX #90 tabs Allergies Allergy/AdvReac Type Severity Reaction Status Date / Time codeine Allergy Severe Hives Verified 06/26/24 06:14 Vital Signs Vital Signs - 24 hr 06/26/24 06:16 Temperature 36.6 C Pulse Rate 74 Respiratory Rate 15 Blood Pressure 122/91 H Pulse Oximetry 99 Oxygen Delivery Room Air Exam Narrative: unchnaged Assessment and Plan Assessment and plan (1) [facility] [place] arthritis: Code(s): M19.049 - Primary osteoarthritis, unspecified hand Status: Acute Assessment and Plan: cont as above
--- NOTE | 2024-06-26 06:51 | W.PM.PROC2 ---
Procedure Note - Detailed Date of Procedure 06/26/24 Pre-op Diagnosis Osteoarthritis First Carpometacarpal Joint RT Hand Post-op Diagnosis Same Procedure Performed right basal joint arthroplasty Surgeon Khanh Jimenes MD Podiatric Assistant denys mendoza pa-c Anesthesia General Description of Procedure INFORMED CONSENT: The patient was seen and examined and marked in the pre-op area.? The patient signed the consent form. PROCEDURE IN DETAIL:The patient taken back to OR on the stretcher in supine position. Time out performed with anesthesia, surgeon and staff agreeing on patient's name site and surgery to be performed SCDs were placed on the lower extremities and inflated. A tourniquet was placed on {right} upper extremity and antibiotics given IV After anesthesia administered sedation I injected {8}cc 1%lido with epi and 0.5% marcaine plain at the operative site The?{right upper extremity}?was prepped and draped in sterile fashion the??{right upper extremity} was? exsanguinated with Esmarch bandage and tourniquet inflated to 250mmHg Proceeded with making a longitudinal incision over the right 1st CMC joint on the dorsum of thumb between the 1st and 3rd extensor compartments. This was done through skin and dermis with a 15 blade scalpel. Littler scissors were used to spread through subcutaneous tissue down to the joint capsule retracting tendon and dorsal radial sensory nerve which was protected throughout the procedure. I made my capsulotomy with 15 blade scalpel. Then using fluoroscopy I confirmed location of the trapezium and proceeded with complete trapeziiectomy with combination of McGlamry elevator, rongeur and 15 blade scalpel. Removal of the trapezium was verified on multiple views of fluoroscopy. I proceeded with making a longitudinal incision over the base of the 2nd metacarpal through skin and dermis with a 15 blade scalpel. Littler scissors were used to spread down to periosteum. Periosteum was incised reflected on the ulnar aspect of the 2nd metacarpal base. Using the Arthrex mini C ring guide I proceeded with placing the double gauge K-wire in a radial to ulnar direction from the base of the 1st metacarpal out out of the ulnar side of the 2nd metacarpal. Wire placement was verified on multiple views of fluoroscopy. Satisfied with wire placement I proceeded with placing the mini tight rope in standard fashion. the tightrope was tied down to the button on the 2nd metacarpal. Live fluoro demonstrated full range of motion of the thumb and no subsidence on axial load. I irrigated with normal saline. Capsule and periosteum was repaired with 3-0 Vicryl suture. 4-0 Monocryl was used for dermal and subcuticular closure. A dressing of dermabond, 4x4, hyacinth, and a thumb spica splint was applied for patient safety, security, and comfort and secured with an harlan bandage after the tourniquet was let down noting the hand was warm and well perfused. The patient was then awaken from anesthesia and transferred to the recovery room in stable condition.? Complications - none EBL- 0cc Disposition - home in stable conditions Denys Mendoza PA-C was essential for positioning, retraction, fluoro, closure and dressing placement [facility] Billing Surgery - Charge Forward: Surgery Billing ([id number] for denys)
[2024-06-26] MEDS: LACTATED RINGERS 1,000 ML 30 ML IV CONT (07:20)
--- NOTE | 2024-06-26 07:23 | P.PNAN_ITS ---
Anes - Initial Pre Proc Eval Procedure: Operation Date: 06/26/24 07:30 Proposed Procedures p Right Basal Joint Arthroplasty with Mini Tightrope - Khanh Jimenes MD Date/Time: 06/26/24 07:23 Surgeon: Khanh Jimenes MD Pre Op Diagnosis: Osteoarthritis First Carpometacarpal Joint RT Hand Patient Data Age: 64 Gender: F Height: 1.57 m Weight: 63.3 kg Last Vital Signs Temp 36.6 C 06/26/24 06:16 Pulse 74 06/26/24 06:16 Resp 15 06/26/24 06:16 BP 122/91 H 06/26/24 06:16 Pulse Ox 99 06/26/24 06:16 O2 Del Method Room Air 06/26/24 06:16 Allergies Allergy/AdvReac Type Severity Reaction Status Date / Time codeine Allergy Severe Hives Verified 06/26/24 06:14 Home Medications ?Medication ?Instructions ?Recorded ?Confirmed ?Type infliximab 100 mg intravenous 100 mg IV [id number] 01/06/23 06/06/24 History solution (Remicade) glucosamine HCl 500 mg tablet 500 mg PO BID 06/13/23 06/06/24 History losartan 50 mg tablet See Rx Instructions .Route 12/14/23 06/06/24 Rx .COMPLEX #90 tabs topiramate 50 mg tablet See Rx Instructions .Route 12/14/23 06/06/24 Rx .COMPLEX #180 tabs amitriptyline 25 mg tablet See Rx Instructions .Route 12/26/23 06/26/24 Rx .COMPLEX #90 tabs atogepant 60 mg tablet (Qulipta) See Rx Instructions .Route 02/04/24 06/06/24 Rx .COMPLEX #90 tabs ubrogepant 100 mg tablet (Ubrelvy) 100 mg PO ONCE #48 tabs 02/19/24 06/06/24 Rx quetiapine 100 mg tablet 100 mg PO QHS #90 tabs 02/21/24 06/06/24 Rx triamcinolone acetonide 0.1 % See Rx Instructions .Route 03/07/24 06/06/24 Rx topical ointment .COMPLEX #80 grams dicyclomine 20 mg tablet See Rx Instructions .Route 03/12/24 06/26/24 Rx .COMPLEX #90 tabs right custom fitted hand based #1 ea 03/20/24 04/21/24 Rx splint ondansetron 4 mg disintegrating 4 mg PO Q6H PRN nausea and 04/21/24 06/06/24 Rx tablet vomiting #20 tabs sertraline 100 mg tablet 100 mg PO DAILY #90 tabs 04/21/24 06/06/24 Rx naproxen 500 mg tablet See Rx Instructions .Route 05/07/24 06/06/24 Rx .COMPLEX #60 tabs levothyroxine 125 mcg tablet 125 mcg PO DAILY #90 tabs 06/02/24 06/26/24 Rx alprazolam 0.5 mg tablet 0.5 mg PO QID PRN anxiety #40 tabs 06/09/24 06/26/24 Rx eszopiclone 2 mg tablet 2 mg PO QHS #30 tabs 06/09/24 06/26/24 Rx amlodipine 5 mg tablet See Rx Instructions .Route 06/17/24 06/26/24 Rx .COMPLEX #90 tabs cephalexin 500 mg capsule 500 mg PO Q8H #21 caps 06/26/24 Rx hydrocodone 5 mg-acetaminophen 325 1 tablet PO Q6H PRN pain #12 tabs 06/26/24 Rx mg tablet Patient hx anesthesia problems: none Family hx anesthesia problems: none Results Review: All pre-operative results and documents have been reviewed as part of the pre- operative evaluation. FOR[facility]LY [facility] Past Medical History Medical History Fatigue Thyroid nodule Primary osteoarthritis involving multiple joints Contact dermatitis Hypotensive episode Dental infection Thyroid cancer Acute flank pain Other screening mammogram Visit for suture removal Kidney stone Anxiety Urolithiasis Insomnia UTI (urinary tract infection) HTN (hypertension) Hypothyroidism associated with surgical procedure Elevated cholesterol HTN (hypertension) Crohn's disease Surgical History Surgical History History of thyroidectomy History of repair of hiatal hernia Open hiatal hernia repair 8-9 years ago. History of cholecystectomy Cholecystectomy during hiatal hernia repair H/O: hysterectomy Open KLARISSA with bilateral SPO Family History Family History Mother Acute myocardial infarction Social History Social History Social History: She wishes to be listed as a Full Code. PCP: Dr. Mcfarland Caffeine-decaf tea, occasional soda Smoking packs per day: 0.5 Smoking cigarettes per day: 10.0 Years smoked: 15 Smoking pack-years: 7.50 Smoking status: Former smoker Tobacco type: cigarettes Second hand tobacco smoke exposure: No Smoking end date: 06/11/00 Alcohol intake: current Alcohol use details: patient drinks about 2 times per month. Occasional Substance use: never Substance use type: does not use Do You Feel Safe in your Home?: Yes Lack of Transportation: No Lack of Food: Never True Current Housing: I Have Housing Concerned About Future Housing: No Difficulty Paying Gas/Electric Bills: No Difficulty Paying for Meds: YES Currently Unemployed: No Education: High School Diploma/GED Difficulty w/ Childcare or Family Care: No Living arrangements: with family Gender identity (if verbalized by the patient): Female Spiritual care concerns: No Anes - Eval Final PreProcedure Day of Procedure 06/26/24 07:23 Patient weight: normal Heart: regular rate and rhythm Lungs: clear to auscultation Airway: Mallampati scale class II Neurological: alert and oriented Last oral intake: >/= 8 hours ASA classification: III Emergent: no Anesthetic plan: proceed Anesthesia type and monitoring: general LMA and standard monitoring Results Review: All pre-operative results and documents have been reviewed as part of the pre- operative evaluation. Informed Consent: The patient's anesthetic plan and its attendant risks and benefits were discussed with the patient/family/POA. Questions were solicited and answers provided to the satisfaction of the patient/family/POA.
[2024-06-26] MEDS: ceFAZolin SODIUM 2 GM/20 ML SW SYRINGE IV PUSH (07:24)
[2024-06-26] MEDS: BUPivacaine HCL 0.5% PF 30 ML VIAL INFILTRATE (08:38)
[2024-06-26] MEDS: LIDO 1%/EPINEPHRINE 1:100,000 10 ML VIAL INFILTRATE (08:38)
[2024-06-26] MEDS: oxyCODONE HCL (*CRX) 5 MG TAB IR PO (09:32)
--- NOTE | 2024-06-26 10:38 | WPDANESPN ---
Anes - Prog Note Post-Op Date/Time: 06/26/24 10:38 Cardiovascular status: normal Respiratory status: normal Airway patency: baseline Mental status: baseline Post-Op hydration status: normal Vital Signs: Last Vital Signs Temp 36.6 C 06/26/24 08:39 Pulse 78 06/26/24 10:05 Resp 16 06/26/24 10:05 BP 150/80 H 06/26/24 10:05 Pulse Ox 95 06/26/24 10:05 O2 Del Method Room Air 06/26/24 10:05 O2 Flow Rate 8 06/26/24 08:54 Pain Score (VAS): 0 I/O: Intake & Output 06/25/24 06/26/24 06/26/24 23:59 07:59 15:59 Intake Total 50 Balance 50 Patient Feedback: Patient satisfied with anesthetic care.
== END 2024-06-26 10:10 ==
PROVIDERS: PCP Emergency Medicine; Visit Provider Plastic Surgery
PROC: (CPT 25447; principal; 2024-06-26 07:30)
DX: M18.11 Unilateral primary osteoarthritis of first carpometacarpal joint, right hand (principal)
CPT/HCPCS: 25447; 26123; 99199

== ENCOUNTER 2024-08-05 08:37 | Outpatient (CLI) | payer OTHER, SELFPAY ==
--- NOTE | ~2024-08-05 | XR_ITS ---
EXAMINATION: XR hand RT min 3V DATE: 08/05/2024 08:58 INDICATION: Right basal joint arthroplasty. TECHNIQUE: 3 views of the right hand were obtained. COMPARISON: Right wrist radiographs 06/20/2023 FINDINGS: The trapezium is absent. There are radiopaque markers at first and second metacarpals for t he mini tightrope implant. No fracture. There is mild osteoarthritis of third metacarpophalangeal dorian nt and some of the interphalangeal joints. There is moderate osteoarthritis of first interphalangeal joint and second, third, and fifth distal interphalangeal joints. IMPRESSION: 1. Polyarticular osteoarthritis. Reviewed, dictated and finalized at location A. TLE FILLER
--- OUTSIDE RECORDS SUMMARY | 2024-08-05 08:59 | XMS_ITS | Referral Summary ---
Author Organization [facility] Address [address] [place] [address] Care Team Providers Care Collection Systems Worker Name Role Phone Tae Mcfarland MD Primary Care Provider + [phone] Source Comments [facility],non-owned Affiliates and Associated Physician Practices is amultiple site organization consisting of ambulatory clinics and hospital sitesin [place], [place], [place]. This disclosure is being madepursuant to the Care Everywhere program and may not contain all information available regarding this patient. Last updated 18.[facility] Allergies Active Allergy Reactions Criticality Noted Date [...] 80 08/26/2021 8:15 AM CDT Temperature 36.6 C (97.8 F) 08/26/2021 8:15 AM CDT Respiratory Rate - - Oxygen Saturation 98% 08/26/2021 8:15 AM CDT Inhaled Oxygen Concentration - - Weight 73.9 kg (163 lb) 11/03/2021 9:38 AM CDT Height - - Body Mass Index - - Plan of Treatment Not on file Care Teams Collection Systems Worker Relationship Specialty Start Date End Date Tae Mcfarland MD [address] [place] [address] [address] [place] [address] PCP - General 06/30/21
--- OUTSIDE RECORDS SUMMARY | 2024-08-05 08:59 | XMS_ITS | Referral Summary ---
Author Organization [facility] Address [address] [place] [phone] Care Team Providers Care Log Sawyer Name Role Phone Tae Mcfarland MD Primary Care Provide r Encounters Date Type Department Care Team Description 07/17/2024 8:30 AM DIRECTOR HOME Infusion [facility] [address] [place] [phone] Crohn's disease of large intestine without complication (CMS/HCC) (HCC) (Primary Dx) 06/19/2024 8:30 AM DIRECTOR HOME Infusion [facility] [address] [place] [phone] Crohn's disease of large intestine without complication (CMS/HCC) (HCC) (Primary Dx) 05/16/2024 11:15 AM DIRECTOR HOME Infusion [facility] [address] [place] [phone] Crohn's disease of large intestine without complication (CMS/HCC) (HCC) (Primary Dx) from Last 3 Months Allergies Active Allergy Reactions Criticality Noted Date Comments Codeine Other (See comments),Palpitations Low 04/10/2021 Reaction: hives, , Reaction: hives, , Medications hydroCHLOROthiazid e (HYDRODIURIL) 25 mg tablet Take 1 tablet (25 mg total) by mouth mechanic before breakfast Active topiramate (TOPAMAX) 50 mg tablet Take 1 tablet (50 mg total) by mouth 2 (two) times a day Active dicyclomine (BENTYL) 20 mg tablet Take 1 tablet (20 mg total) by mouth every 6 (six) hours Active amLODIPine (NORVASC) 5 mg tablet Take 1 tablet (5 mg total) by mouth mechanic before breakfast Active losartan (COZAAR) 50 mg tablet Take 50 mg by mouth mechanic before breakfast. Active amitriptyline (ELAVIL) 25 mg tablet Take 1 tablet (25 mg total) by mouth nightly Active zolpidem (AMBIEN) 5 mg tabletIndications: Sleep-Onset Insomnia Take 10 mg by mouth nightly as needed for sleep. Active levothyroxine sodium (TIROSINT) 50 mcg capsule 125 mcg mechanic before breakfast. Active meloxicam (MOBIC) 7.5 mg [...] by mouth nightly as needed Active rizatriptan BROACH SETTER (MAXALT-BROACH SETTER) 10 mg disintegrating tabletIndications: Migraine Take [...] (02/25/2018): Added automatically from request for surgery [id number] Crohn's disease of large int estine without complication ([facility]) 08/09/2017 Knee pain 04/18/2017 Thyroid activity decreased [...] file Legal Sex Female 2:53 AM DIRECTOR HOME Gender Identity Not on file Sexual Orientation Not on file Last Filed Vital Signs Vital Sign Reading Time Taken Comments Blood Pressure 135/88 07/17/2024 8:42 AM DIRECTOR HOME Pulse 83 07/17/2024 8:42 AM DIRECTOR HOME Temperature 36.9 C (98.4 F) 07/17/2024 8:42 AM DIRECTOR HOME Respiratory Rate 16 07/17/2024 8:42 AM DIRECTOR HOME Oxygen Saturation 98% 06/19/2024 9:00 AM DIRECTOR HOME Inhaled Oxygen Concentration - - Weight 62.4 kg (137 lb 8 oz) 07/17/2024 8:26 AM DIRECTOR HOME Height 157.5 cm (5' 2 ) 07/17/2024 8:26 AM DIRECTOR HOME Body Mass Index 25.15 07/17/2024 8:26 AM DIRECTOR HOME Plan of Treatment Not on file Medical Devices Implanted Type Area Lens Coating Technician Device Identifier Shelf Expiration Date Model / Serial / Lot [employer] At2-M20 Acutrak 2 3.5-3.6mm 20mm Self Cut Cannulated Variable Pitch - S0 - [id number] Implanted:Qty: 1 on 02/26/2018 by Sebastián Bertrand MD at [facility] Screw Left: Arm [employer] 03/25/2024 AT2-M20 / 0 / [id number] Explanted Type Area Lens Coating Technician Device Identifier Shelf Expiration Date Model / Serial / Lot [employer] [id number] Shante .045in 4in [place]car [place] Both Ends Orthopedic Wire - [id number] Explanted:Qty: 2 on 02/26/2018 by Sebastián Bertrand MD at [facility] Wire Left: Arm [employer] [id number] / / Insurance [facility] MEDICARE [facility] CHOICE PLUS [facility] Care Teams Log Sawyer Relationship Specialty Start Date End Date Tae Mcfarland MD [address] [place] [address] PCP - General 06/18/20
--- OUTSIDE RECORDS SUMMARY | 2024-08-05 08:59 | XMS_ITS | Clinical Summary ---
Author Organization [facility] Address [address] [place] [address] Care Team Providers Care Consultative Sales Associate Name Role Phone Tae Mcfarland MD Primary Care Provider + [phone] Source Comments [facility],non-owned Affiliates and Associated Physician Practices is amultiple site organization consisting of ambulatory clinics and hospital sitesin [place], [place], [place] and [place]. This disclosure is being madepursuant to the Care Everywhere program and may not contain all information available regarding this patient. Last updated 18.[facility] Allergies Active Allergy Reactions Criticality Noted Date [...] 04/22/1978 DTAP/TDAP/TD VACCINES (1 - Tdap) 1979 PNEUMOCOCCAL VACCINE 50+ (1 of 1 - PCV) 2010 ZOSTER VACCINE (1 of 2) 2010 COVID-19 VACCINE (1 - 2023-2 5 season) 2024 INFLUENZA VACCINE (#1) 2024 DEPRESSION SCREENING 06/11/2024 MEDICARE AWV CALENDAR YEAR 2024 Respiratory Syncytial Virus (RSV) Vaccine Pt: [...] patient's age to complete this topic MENINGOCOCCAL (Group B) VACCINE Aged Out No longer eligible based on patient's age to complete this topic MENINGOCOCCAL VACCINE Aged Out No sergio joshua eligible based on patient's age to complete this topic PNEUMOCOCCAL VACCINE Aged Out No long er eligible based on patient's age to complete this topic Care Teams Consultative Sales Associate Relationship Specialty Start Date End Date Tae Mcfarland MD [address] [place] [address] PCP - General 06/30/21
--- OUTSIDE RECORDS SUMMARY | 2024-08-05 08:59 | XMS_ITS | Clinical Summary ---
Author Organization [email or web address] Address [address] [place] [address] Care Team Providers Care Quality Assurance Inspector Name Role Phone Sunny Redmond MD Primary Care Provider [phone] Allergies No known active allergies Medications lisinopril (PRINIVIL) 40 mg tabletIndication s:Palpitations,H TN (hypertension),L VH (left ventricular hypertrophy) Take 40 mg by mouth daily. Active metFORMIN (GLUCOPHAGE) 500 mg tabletIndication s:Palpitations,H TN (hypertension),L VH (left ventricular hypertrophy) Take 500 mg by mouth 2 times daily with meals. Active metoprolol tartrate (LOPRESSOR) 100 mg tabletIndication s:Palpitations,H TN (hypertension),L VH (left ventricular hypertrophy) Take 100 mg by mouth daily. Active amLODIPine (NORVASC) 5 mg tabletIndication s:Palpitations,H TN (hypertension),L VH (left ventricular hypertrophy) Take 5 mg by mouth daily. Active topiramate (TOPAMAX) 50 mg tabletIndication s:Palpitations,H TN (hypertension),L VH (left ventricular hypertrophy) Take 50 mg by mouth 2 times daily. Active venlafaxine (EFFEXOR) 37.5 mg tabletIndication s:Palpitations,H TN (hypertension),L VH (left ventricular hypertrophy) Take 37.5 mg by mouth daily. Active hydrochlorothiaz kleber 25 mg Oral tabletIndication s:Palpitations,H TN (hypertension),L VH (left ventricular hypertrophy) Take 25 mg by mouth daily. Active amitriptyline (ELAVIL) 25 mg tabletIndication s:Palpitations,H TN (hypertension),L VH (left ventricular hypertrophy) Take 25 mg by mouth daily at bedtime. Active atorvastatin (LIPITOR) 20 mg tabletIndication s:Palpitations,H TN (hypertension),L VH (left ventricular hypertrophy) Take 20 mg by mouth Daily LATE. Active zolpidem (AMBIEN) 10 mg tabletIndication s:Palpitations,H TN (hypertension),L VH (left ventricular hypertrophy) Take 10 mg by mouth nightly as needed. Active QUEtiapine (SEROQUEL) 50 mg tabletIndication s:Palpitations,H TN (hypertension),L VH (left ventricular hypertrophy) Take 50 mg by mouth daily. Active Active Problems Patient Care Coordination No te Formatting of this note migh t be different from the original. Animal Nursery Worker - Dr Noriega ([facility]) No known active problems Social History Tobacco Use Types Packs/Day Years Used Date Smoking Tobacco: Former Smokeless Tobacco: Never Alcohol Use Standard Drinks/Week Comments Not Asked 0 (1 standard drink = 0.6 oz pur e alcohol) Comments Unknown Sex and Gender Information Value Date Recorded Sex Assigned at Not on file Legal Sex Female 6:03 AM WEB DESIGNER Gender Identity Not on file Sexual Orientation [...] ) (1 - 1-dose 75+ series) [address] BLUE ACCESS CHOICE Member Subscriber Plan / Payer (Ef fective 2020-Present) Name:Karon Gaviria Relation to Subscriber:Spouse Name:OSCAR GAVIRIA Date of :1960 (Home) [address]: [address] [place] [address] [place] [address] Payer ID:[id number] (NAIC) Type:[place] [address] [place] [address] Care Teams Quality Assurance Inspector Relationship Specialty Start Date End Date Sunny Redmond MD PCP - General Family Practice 11/13/13
--- OUTSIDE RECORDS SUMMARY | 2024-08-05 08:59 | XMS_ITS | Clinical Summary ---
Author Organization [facility] Address [address] [place] [address] Care Team Providers Care Service Desk Agent Name Role Phone Tae Mcfarland MD Primary Care Provider [phone] Paul Arndt MD Unavailable [phone] Allergies Active Allergy Reactions Criticality Noted Date Comments Codeine Other (see comment) 04/10/2021 Reaction: hives, , Medications No known medications Social History Tobacco Use Types Packs/Day Years Used Date Smoking Tobacco: Never Smokeless Tobacco: Never Alcohol Use Standard Drinks/Week Comments Not Currently 0 (1 standard drink = 0.6 oz pur e alcohol) Comments No Sex and Gender Information Value Date Recorded Sex Assigned at Not on file Legal Sex Female 7:24 PM CDT Gender Identity Not on file Sexual Orientation Not on file Last Filed Vital Signs Vital Sign Reading Time Taken Comments Blood Pressure 142/93 04/10/2021 6:38 PM CDT Pulse 69 04/10/2021 6:38 PM CDT Temperature 36.3 C (97.3 F) 04/10/2021 6:38 PM CDT Respiratory Rate 20 04/10/2021 6:38 PM CDT Oxygen Saturation 100% 04/10/2021 6:38 PM CDT Inhaled Oxygen Concentration - - Weight 74 kg (163 lb 2.3 oz) 04/10/2021 6:38 PM CDT Height 157.5 cm (5' 2 ) 04/10/2021 6:38 PM CDT Body Mass Index 29.84 04/10/2021 6:38 PM CDT Plan of Treatment Health Maintenance Due Date Last Done Comments Cervical Cancer Screening Pa p Smear (Age 30 to 64) Every 3 Years 1960 Colorectal Cancer Screening Colonoscopy (10 Years) 1960 Annual Physical 1963 PHQ-2 (Physician [place]) 1972 Hepatitis C 1978 DTaP, Tdap and Td Vaccines ( 1 - Tdap) 1979 Cervical Cancer Screening Pa willem with HPV Testing (Age 30 to 64) Every 5 Years 1990 Cervical Cancer Screening with HPV 1990 Mammogram Screening 2000 Zoster Vaccines (1 of 2) 2010 COVID-19 Vaccine ( - 2023-2 5 season) 2024 Influenza Adult (#1) 2024 PHQ-2 (Physician [place]) 06/11/2024 RSV Immunization or 60+ Years (1 - 1-dose 75+ series) 2035 Meningococcal B Vaccine Aged Out No l onger eligible based on patient's age to complete this topic Meningococcal Vaccine Aged Out No sergio joshua eligible based on patient's age to complete this topic Pneumococcal Vaccine: Pediat rics (0 to 5 Years) and At-Risk Patients (6 to 64 Years) Aged Out No longer eligible b ased on patient's age to complete this topic RSV Immunizations Under 20 Months Aged Out No longer eligible based on patient's age to complete this topic Insurance [facility] Care Teams Service Desk Agent Relationship Specialty Start Date End Date Tae Mcfarland MD [address] [place], [place] [id number] PCP - General INTERNAL MEDICINE 04/10/21 Paul Arndt MD [address] [facility] [address] [place], [place] [id number] Surgeon NEUROLOGICAL SURGERY 02/26/24
--- OUTSIDE RECORDS SUMMARY | 2024-08-05 08:59 | XMS_ITS | Patient Health Summary ---
Author Organization [facility] Address [address] [facility] [place] [address] Care Team Providers Care Termite Technician Name Role Phone Tae Mcfarland MD Primary Care Provider + [phone] Note from [facility],non-owned Affiliates and Associated Physician Practices is amultiple site organization consisting of ambulatory clinics and hospital sitesin [place], [place], [place] and [place]. This disclosure is being madepursuant to the Care Everywhere program and may not contain all information available regarding this patient. Last updated 18.[facility] Allergies * Codeine(Palpitations) Medications * Be aware [...] VELIZ M.D. on 10/31/2021 2:07 PM . Narrative 10/31/2021 2:07 [...] cord. This report was electronically signed by BEAKH VELIZ M.D. on 10/31/2021 2:07 PM . Garret Munson MD MR ORDERABLES * CREATININE - POCT INTERFACED (10/29/2021 1:59 PM CDT) Creatinine POCT 0.68 0.30 - 1.30 mg/dL 10/29/2021 5:32 PM CDT [facility] eGFR >90 >90 mL/min/1.7 3 m2 10/29/2021 5:[address] [facility] Blood BLOOD SPECIMEN / Unknown 10/29/2021 1:59 PM CDT 10/29/2021 5:32 PM CDT Garret Munson MD LAB - POINT OF CARE ORDERABLES 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 Report dictated by Devaughn Zamora DO (vice president of finance) I, Dr. VIVI MC have personally reviewed and interpreted this examination/study. This report was electronically signed by VIVI MC on 10/20/2021 12:13 PM . Narrative 10/20/2021 12:13 [...] C4-5. Report dictated by Devaughn Zamora DO (vice president of finance) I, Dr. VIVI MC have personally reviewed and interpreted this examination/study. This report was electronically signed by VIVI MC on 10/20/2021 12:13 PM . Garret Munson MD [facility] Care Teams Termite Technician Relationship Specialty Start Date End Date Tae Mcfarland MD [facility] [facility] [address] [place] [address] PCP - General 06/30/21
--- OUTSIDE RECORDS SUMMARY | 2024-08-05 08:59 | XMS_ITS | Clinical Summary ---
Author Organization [facility] Address [address] [place] [phone] Care Team Providers Care Cyanide Furnace Operator Name Role Phone Tae Mcfarland MD Primary Care Provide r Allergies Active Allergy Reactions Criticality Noted Date Comments Codeine Other (See comments),Palpitations Low 04/10/2021 Reaction: hives, , Reaction: hives, , Medications hydroCHLOROthiazid e (HYDRODIURIL) 25 mg tablet Take 1 tablet (25 mg total) by mouth job press feeder before breakfast Active topiramate (TOPAMAX) 50 mg tablet Take 1 tablet (50 mg total) by mouth 2 (two) times a day Active dicyclomine (BENTYL) 20 mg tablet Take 1 tablet (20 mg total) by mouth every 6 (six) hours Active amLODIPine (NORVASC) 5 mg tablet Take 1 tablet (5 mg total) by mouth job press feeder before breakfast Active losartan (COZAAR) 50 mg tablet Take 50 mg by mouth job press feeder before breakfast. Active amitriptyline (ELAVIL) 25 mg tablet Take 1 tablet (25 mg total) by mouth nightly Active zolpidem (AMBIEN) 5 mg tabletIndications: Sleep-Onset Insomnia Take 10 mg by mouth nightly as needed for sleep. Active levothyroxine sodium (TIROSINT) 50 mcg capsule 125 mcg job press feeder before breakfast. Active meloxicam (MOBIC) 7.5 mg [...] by mouth nightly as needed Active rizatriptan BOLT THREADER (MAXALT-BOLT THREADER) 10 mg disintegrating tabletIndications: Migraine Take 1 [...] (02/25/2018): Added automatically from request for surgery [id number] Crohn's disease of large int estine without complication (CMS/HCC) 08/09/2017 Knee pain 04/18/2017 Thyroid activity decreased 01/10/2011 Encounters Date Type Department Care Team Description 07/17/2024 8:30 AM WIRE ROPE FABRICATION SUPERVISOR Infusion [facility] [address] [place] [phone] Crohn's disease of large intestine without complication (CMS/HCC) (HCC) (Primary Dx) 06/19/2024 8:30 AM WIRE ROPE FABRICATION SUPERVISOR Infusion [facility] [address] [place] [phone] Crohn's disease of large intestine without complication (CMS/HCC) (HCC) (Primary Dx) 05/16/2024 11:15 AM WIRE ROPE FABRICATION SUPERVISOR Infusion [facility] [address] [place] [phone] Crohn's disease of large intestine without complication [...] on file Legal Sex Female 2:53 AM WIRE ROPE FABRICATION SUPERVISOR Gender Identity Not on file Sexual Orientation Not on file Obstetrics History Last Filed Vital Signs Vital Sign Reading Time Taken Comments Blood Pressure 135/88 07/17/2024 8:42 AM WIRE ROPE FABRICATION SUPERVISOR Pulse 83 07/17/2024 8:42 AM WIRE ROPE FABRICATION SUPERVISOR Temperature 36.9 C (98.4 F) 07/17/2024 8:42 AM WIRE ROPE FABRICATION SUPERVISOR Respiratory Rate 16 07/17/2024 8:42 AM WIRE ROPE FABRICATION SUPERVISOR Oxygen Saturation 98% 06/19/2024 9:00 AM WIRE ROPE FABRICATION SUPERVISOR Inhaled Oxygen Concentration - - Weight 62.4 kg (137 lb 8 oz) 07/17/2024 8:26 AM WIRE ROPE FABRICATION SUPERVISOR Height 157.5 cm (5' 2 ) 07/17/2024 8:26 AM WIRE ROPE FABRICATION SUPERVISOR Body Mass Index 25.15 07/17/2024 8:26 AM WIRE ROPE FABRICATION SUPERVISOR Plan of Treatment Health Maintenance Due Date [...] this topic Medical Devices Implanted Type Area Solid Center Winder Device Identifier Shelf Expiration Date Model / Serial / Lot [employer] At2-M20 Acutrak 2 3.5-3.6mm 20mm Self Cut Cannulated Variable Pitch - S0 - [id number] Implanted:Qty: 1 on 02/26/2018 by Sebastián Bertrand MD at [facility] Screw Left: Arm [employer] 03/25/2024 AT2-M20 / 0 / [id number] Explanted Type Area Solid Center Winder Device Identifier Shelf Expiration Date Model / Serial / Lot [employer] [id number] Shante .045in 4in [place] Both Ends Orthopedic Wire - [id number] Explanted:Qty: 2 on 02/26/2018 by Sebastián Bertrand MD at [facility] Wire Left: Arm [employer] [id number] / / Insurance [facility] [place] MEDICARE [facility] [place] [address] [facility] Care Teams Cyanide Furnace Operator Relationship Specialty Start Date End Date Tae Mcfarland MD [address] [place] [address] PCP - General 06/18/20
== END 2024-08-05 08:38 | disposition home or self-care (01) ==
PROVIDERS: PCP Emergency Medicine; Visit Provider Plastic Surgery
DX: M19.041 Primary osteoarthritis, right hand (principal)
CPT/HCPCS: 73130

== ENCOUNTER 2024-08-05 10:19 | Emergency (ER) | payer OTHER, SELFPAY ==
--- NOTE | ~2024-08-05 | XR_ITS ---
EXAMINATION: XR chest 2V DATE: 08/05/2024 11:22 INDICATION: Dry cough TECHNIQUE: PA and lateral views of the chest were obtained. COMPARISON: Chest radiograph dated 02/09/2023 FINDINGS: Focal airspace opacity at the anteromedial right lower lung zone which could represent atelectasis or pneumonia. Remainder the lungs are clear. No pulmonary edema, pleural effusion or pneumothorax. The cardiomediastinal silhouette is normal. Cholecystectomy clips in right upper quadrant with additional postoperative changes in the epigastric region. Mild thoracic kyphosis with moderate to severe spond ylosis and chronic mild anterior wedging of a few mid and lower thoracic vertebral bodies. IMPRESSION: 1. Opacities in the anteromedial right lower lung zone which could represent right middle lobe atelec tasis and/or pneumonia. Reviewed, dictated and finalized at location B. UROLOGIST IMPRESSION: 1. Opacities in the anteromedial right lower lung zone which could represent ri ght middle lobe atelectasis and/or pneumonia.
[2024-08-05 10:39] VITALS: BP 132/88; PULSE 74; RESP 16; TEMP 36.8
--- NOTE | 2024-08-05 10:43 | ED_ITS ---
HPI - URI/Sore Throat General Chief Complaint: Upper Respiratory Infection Stated Complaint: cough, rattling in chest Time Seen by Provider: 08/05/24 10:43 Source: patient, RN notes reviewed and old records reviewed Mode of arrival: ambulatory Limitations: no limitations History of Present Illness HPI Narrative: Patient presents with complaints of cough for 1 week. She reports that she has had intermittent fevers, chills, sweats. States that she has noticed a wheezing sound intermittently, particularly at night. She has been taking ceyx-sbo-ngqwjyz medication for her symptoms with minimal relief. She is not any obvious distress. Voices no other concerns or complaints today Related Data Home Medications ?Medication ?Instructions ?Recorded ?Confirmed ?Last Taken ?Type infliximab 100 mg intravenous 100 mg IV [id number] 01/06/23 06/06/24 Unknown History solution (Remicade) glucosamine HCl 500 mg tablet 500 mg PO BID 06/13/23 06/06/24 Unknown History Allergies Allergy/AdvReac Type Severity Reaction Status Date / Time codeine Allergy Severe Hives Verified 08/05/24 10:48 Review of Systems Review of Systems: All systems reviewed & are unremarkable except as noted in HPI and below Constitutional: Constitutional: Reports no additional constitutional complaints ENT: Reports system reviewed and no additional complaints, except as documente d Cardiovascular: Cardiovascular: Reports no additional cardiovascular complaints Respiratory: Respiratory: Reports no additional respiratory complaints, Reports chest congestion, Reports cough, Reports excessive phlegm production, Reports pain with cough and Reports wheezing Gastrointestinal: Gastrointestinal: Reports no additional gastrointestinal complaints PMFSH Past Medical History Medical History Fatigue Thyroid nodule Primary osteoarthritis involving multiple joints Contact dermatitis Hypotensive episode Dental infection Thyroid cancer Acute flank pain Other screening mammogram Visit for suture removal Kidney stone Anxiety Urolithiasis Insomnia UTI (urinary tract infection) HTN (hypertension) Hypothyroidism associated with surgical procedure Elevated cholesterol HTN (hypertension) Crohn's disease Surgical History Surgical History History of thyroidectomy History of repair of hiatal hernia Open hiatal hernia repair 8-9 years ago. History of cholecystectomy Cholecystectomy during hiatal hernia repair H/O: hysterectomy Open KLARISSA with bilateral SPO Family History Family History Mother Acute myocardial infarction Social History Social History Social History: She wishes to be listed as a Full Code. PCP: Dr. Mcfarland Caffeine-decaf tea, occasional soda Smoking packs per day: 0.5 Smoking cigarettes per day: 10.0 Years smoked: 15 Smoking pack-years: 7.50 Smoking status: Never smoker Tobacco type: cigarettes Second hand tobacco smoke exposure: No Smoking end date: 06/11/00 Alcohol intake: current Alcohol use details: patient drinks about 2 times per month. Occasional Substance use: never Substance use type: does not use Do You Feel Safe in your Home?: Yes Lack of Transportation: No Lack of Food: Never True Current Housing: I Have Housing Concerned About Future Housing: No Difficulty Paying Gas/Electric Bills: No Difficulty Paying for Meds: YES Currently Unemployed: No Education: High School Diploma/GED Difficulty w/ Childcare or Family Care: No Living arrangements: with family Gender identity (if verbalized by the patient): Female Spiritual care concerns: No Comments At the time of my signature, I reviewed and agree with the nursing past medical, surgical, social, and family history. There is no relevant family history pertinent to the patient complaint. Exam Const: General: cooperative, no acute distress, alert and awake Orientation/consciousness: oriented to person, oriented to place and oriented to time HENMT: Head: normal to inspection Mouth: Yes moist mucous membranes Resp: Effort & Inspection: normal respiratory effort and able to speak in complete sentences Auscultation: clear to auscultation bilaterally, crackles on the right in the lower lung to, no rales, no rhonchi and no wheezes Cardio: Palpation: normal PMI Rate: regular rate Rhythm: regular rhythm Heart sounds: S1 normal heart sound present and S2 normal heart sound present Neuro: General: oriented to person, oriented to place and oriented to time Cranial nerves: Yes CN's II-XII intact bilaterally Psych: Appearance: grossly normal Thought process: Normal thought process present Insight: Good insight present (Psych) Judgement: Good judgement present (Psych) Course Course Level of Care: Express Care Visit Vital Signs Vital signs: Vital Signs Temperature 98.3 F 08/05/24 10:39 Pulse Rate 74 08/05/24 10:39 Respiratory Rate 16 08/05/24 10:39 Blood Pressure 132/88 08/05/24 10:39 Temperature 98.3 F 08/05/24 10:39 Pulse Rate 74 08/05/24 10:39 Respiratory Rate 16 08/05/24 10:39 Blood Pressure 132/88 08/05/24 10:39 Reviewed MDM - URI/Sore Throat MDM Narrative Medical decision making narrative: Patient nontoxic appearing, stable for discharge home. Chest x-ray shows pneumonia. She stable for discharge home on p.o. antibiotic therapy with steroid burst and bronchodilator. Emergency department precautions discussed. Discharge instructions reviewed with patient, as well as provided in writing per nursing staff. The instructions also include specific and strict return/GO TO THE ER as well as f/u information. All questions have been answered, and the patient deny any further questions with discharge and discharge plan. Some parts of this dictation were generated by voice recognition software and may contain typographical and/or grammatical inaccuracies. Differential Diagnosis Differential diagnosis: Likely upper respiratory infection, viral infection and bronchitis Medical Records Attestation: I reviewed the patient's medical records. Lab Data Attestation: I reviewed the patient's lab results. Imaging Data Attestation: I personally reviewed and interpreted this imaging study as follows: My impression: RLL pna Radiologist's impression: [facility] [address] [place] [address] XRay Report Signed Patient: Karon Gaviria : 1960 MR#: [id number] Age: 64 Acct:[id number] Loc: [facility] ADM Date: 08/05/24Attending Dr: Ordering Physician: Cathie Robertson FNP Date of Service: 08/05/24 Procedure(s): XR chest 2V Accession Number(s): [id number] cc: Cathie Robertson FNP; Tae Mcfarland MD~ EXAMINATION: XR chest 2V DATE: 08/05/2024 11:22 INDICATION: Dry cough TECHNIQUE: PA and lateral views of the chest were obtained. COMPARISON: Chest radiograph dated 02/09/2023 FINDINGS: Focal airspace opacity at the anteromedial right lower lung zone which could represent atelectasis or pneumonia. Remainder the lungs are clear. No pulmonary edema, pleural effusion or pneumothorax. The cardiomediastinal silhouette is normal. Cholecystectomy clips in right upper quadrant with additional postoperative changes in the epigastric region. Mild thoracic kyphosis with moderate to severe spondylosis and chronic mild anterior wedging of a few mid and lower thoracic vertebral bodies. IMPRESSION: 1. Opacities in the anteromedial right lower lung zone which could represent right middle lobe atelectasis and/or pneumonia. Reviewed, dictated and finalized at location B. OS TM1 DEVELOPER Please be advised this is a medical document. It is intended for hrme-bt-dact communication. It is written in medical language and may contain unfamiliar abbreviations or verbiage. Medical documents are intended to carry relevant information, facts as evident, and the clinical opinion of the practitioner at the time of the encounter. This report may have been done utilizing a voice recognition system. Attempts have been made to correct errors. However, there may be uncorrected grammatical, spelling, and recognition errors present. The file time of this note does not necessarily represent the time of service. Dictated By: Tiago Lloyd MD 08/05/24 1123 Signed By: <Electronically signed by Tiago Lloyd MD in OV> 08/05/24 1125 Discharge Plan Discharge Clinical Impression: Pneumonia Qualifiers: Pneumonia type: due to unspecified organism Laterality: right Lung location: middle lobe of lung Qualified Code(s): J18.9 - Pneumonia, unspecified organism Patient Disposition: Home, Self-Care Condition: Stable Instructions: Antibiotic Form, Bacterial Pneumonia (ED) Additional Instructions: Take medications as prescribed. Follow with primary care provider. Emergency department for new or worse symptoms Patient Language: Yoruba Prescriptions: New doxycycline hyclate 100 mg capsule 100 mg PO BID 10 Days Qty: 20 0RF prednisone 50 mg tablet 50 mg PO DAILY Qty: 5 0RF albuterol sulfate [Ventolin HFA] 90 mcg/actuation HFA aerosol inhaler 2 puff inhalation QID PRN (Reason: shortness of breath or wheezing) Qty: 8.5 0RF No Action infliximab [Remicade] 100 mg Recon Soln 100 mg IV [id number] Rx Instructions: last infusion 01/05/23 glucosamine HCl 500 mg tablet 500 mg PO BID Rx Instructions: administer with meals ondansetron 4 mg tablet,disintegrating 4 mg PO Q6H PRN (Reason: nausea and vomiting) Qty: 20 2RF sertraline 100 mg tablet 100 mg PO DAILY Qty: 90 2RF losartan 50 mg tablet See Rx Instructions .ROUTE .COMPLEX Qty: 90 2RF Dose Instruction: TAKE 1 TABLET BY MOUTH EVERY DAY Rx Instructions: TAKE 1 TABLET BY MOUTH EVERY DAY topiramate 50 mg tablet See Rx Instructions .ROUTE .COMPLEX Qty: 180 2RF Dose Instruction: TAKE 1 TABLET BY MOUTH TWICE A DAY Rx Instructions: TAKE 1 TABLET BY MOUTH TWICE A DAY amitriptyline 25 mg tablet See Rx Instructions .ROUTE .COMPLEX Qty: 90 2RF Dose Instruction: TAKE 1 TABLET BY MOUTH EVERY DAY Rx Instructions: TAKE 1 TABLET BY MOUTH EVERY DAY Qulipta 60 mg tablet See Rx Instructions .ROUTE .COMPLEX Qty: 90 2RF Dose Instruction: TAKE 1 TABLET BY MOUTH EVERY DAY Rx Instructions: TAKE 1 TABLET BY MOUTH EVERY DAY Ubrelvy 100 mg tablet 100 mg PO ONCE Qty: 48 2RF Rx Instructions: as a single dose; may repeat once in >=2 hours after first dose if needed quetiapine 100 mg tablet 100 mg PO QHS Qty: 90 2RF triamcinolone acetonide 0.1 % ointment See Rx Instructions .ROUTE .COMPLEX Qty: 80 2RF Dose Instruction: APPLY TO AFFECTED AREA TWICE A DAY Rx Instructions: APPLY TO AFFECTED AREA TWICE A DAY dicyclomine 20 mg tablet See Rx Instructions .ROUTE .COMPLEX Qty: 90 2RF Dose Instruction: TAKE 1 TABLET BY MOUTH EVERY DAY Rx Instructions: TAKE 1 TABLET BY MOUTH EVERY DAY (DME) right custom fitted hand based splint See Rx Instructions .Route .MEDSUPPLY Qty: 1 0RF Rx Instructions: As directed naproxen 500 mg tablet See Rx Instructions .ROUTE .COMPLEX Qty: 60 3RF Dose Instruction: TAKE 1 TABLET BY MOUTH TWICE A DAY WITH MEALS Rx Instructions: TAKE 1 TABLET BY MOUTH TWICE A DAY WITH MEALS levothyroxine 125 mcg tablet 125 mcg PO DAILY Qty: 90 2RF alprazolam 0.5 mg tablet 0.5 mg PO QID PRN (Reason: anxiety) Qty: 40 1RF amlodipine 5 mg tablet See Rx Instructions .ROUTE .COMPLEX Qty: 90 2RF Dose Instruction: TAKE 1 TABLET BY MOUTH EVERY DAY Rx Instructions: TAKE 1 TABLET BY MOUTH EVERY DAY eszopiclone 2 mg tablet 2 mg PO QHS Qty: 30 0RF hydrocodone-acetaminophen 5-325 mg tablet 1 tablet PO Q6H PRN (Reason: pain) Qty: 12 0RF Follow-up/Referrals: Tae Mcfarland MD [Primary Care Provider] - 2 Weeks Time of Disposition: 11:50
== END 2024-08-05 11:55 | disposition home or self-care (01) ==
PROVIDERS: Emergency Provider Nurse Practitioner Family; PCP Emergency Medicine
DX: J18.9 Pneumonia, unspecified organism (principal); Z87.891 Personal history of nicotine dependence; I10 Essential (primary) hypertension; E78.00 Pure hypercholesterolemia, unspecified; K50.90 Crohn's disease, unspecified, without complications; E89.0 Postprocedural hypothyroidism; M15.9 Polyosteoarthritis, unspecified; F41.9 Anxiety disorder, unspecified; Z85.850 Personal history of malignant neoplasm of thyroid
CPT/HCPCS: 71046; 99213; G0463

== ENCOUNTER 2024-09-08 11:25 | Outpatient (CLI) | payer OTHER, SELFPAY ==
[2024-09-08 12:59] LABS: Thyroid Stimulating Hormone 0.162 uIU/mL (0.465-4.680)
--- OUTSIDE RECORDS SUMMARY | 2024-09-08 12:59 | XMS_ITS | Clinical Summary ---
Author Organization [facility] Address [address] [place] [address] Care Team Providers Care Lead Caregiver Name Role Phone Tae Mcfarland MD Primary Care Provider [phone] Source Comments [facility],non-owned Affiliates and Associated Physician Practices is amultiple site organization consisting of ambulatory clinics and hospital sitesin [place], [place], [place] and [place]. This disclosure is being madepursuant to the Care Everywhere program and may not contain all information available regarding this patient. Last updated 18.[facility] Allergies Active Allergy Reactions Criticality Noted Date [...] SCREENING 1960 LIPID TESTING 1960 MAMMOGRAM 1960 MEDICARE AWV 12 MONTHS 1960 PAP SMEAR 1960 HIV SCREENING 1975 [...] to complete this topic MENINGOCOCCAL (Group B) VACC INE SHARED DECISION-MAKING Aged Out No longer eligibl e based on patient's age to complete this topic MENINGOCOCCAL GROUPS A/C/Y/W VACCINE Aged Out No longer eligible b ased on patient's age to complete this topic PNEUMOCOCCAL VACCINE Aged Out No long er eligible based on patient's age to complete this topic Care Teams Lead Caregiver Relationship Specialty Start Date End Date Tae Mcfarland MD [address] [facility] [address] [place] [address] PCP - General 06/30/21
--- OUTSIDE RECORDS SUMMARY | 2024-09-08 12:59 | XMS_ITS | Clinical Summary ---
Author Organization [facility] Address [address] [place] [address] Care Team Providers Care General Assembler Name Role Phone Tae Mcfarland MD Primary Care Provider [phone] Paul Arndt MD Unavailable [phone] Allergies Active Allergy Reactions Criticality Noted Date [...] Colonoscopy (10 Years) 1960 Annual Physical 1963 Hepatitis C 1978 DTaP, Tdap and Td Vaccines ( 1 - Tdap) 1979 Cervical Cancer Screening Pa p with HPV Testing (Age 30 to 64) Every 5 Years 1990 Cervical Cancer Screening with HPV 1990 Mammogram Screening 2000 Zoster Vaccines (1 of 2) 2010 COVID-19 Vaccine ( - 2023-2 5 season) 2024 Influenza Adult (#1) 2024 PHQ-2 (Physician [place]) 06/11/2024 RSV Immunization or 60+ Years (1 [...] patient's age to complete this topic Insurance Care Teams General Assembler Relationship Specialty Start Date End Date Tae Mcfarland MD [address] [place] [address] PCP - General INTERNAL MEDICINE 04/10/21 Paul Arndt MD [id number] [place] [address] Surgeon NEUROLOGICAL SURGERY 02/26/24
--- OUTSIDE RECORDS SUMMARY | 2024-09-08 12:59 | XMS_ITS | Clinical Summary ---
Author Organization [facility] Address [address] [place] [address] Care Team Providers Care Balance Truer Name Role Phone Tae Mcfarland MD Primary Care Provide r Allergies Active Allergy Reactions Criticality Noted Date Comments Codeine Other (See comments),Palpitations Low 04/10/2021 Reaction: hives, , Reaction: hives, , Medications hydroCHLOROthiazid e (HYDRODIURIL) 25 mg tablet Take 1 tablet (25 mg total) by mouth electrotherapist before breakfast Active topiramate (TOPAMAX) 50 mg tablet Take 1 tablet (50 mg total) by mouth 2 (two) times a day Active dicyclomine (BENTYL) 20 mg tablet Take 1 tablet (20 mg total) by mouth every 6 (six) hours Active amLODIPine (NORVASC) 5 mg tablet Take 1 tablet (5 mg total) by mouth electrotherapist before breakfast Active losartan (COZAAR) 50 mg tablet Take 50 mg by mouth electrotherapist before breakfast. Active amitriptyline (ELAVIL) 25 mg tablet Take 1 tablet (25 mg total) by mouth nightly Active zolpidem (AMBIEN) 5 mg tabletIndications: Sleep-Onset Insomnia Take 10 mg by mouth nightly as needed for sleep. Active levothyroxine sodium (TIROSINT) 50 mcg capsule 125 mcg electrotherapist before breakfast. Active meloxicam (MOBIC) 7.5 mg [...] by mouth nightly as needed Active rizatriptan HUMAN FACTORS ADVISOR LEAD (MAXALT-HUMAN FACTORS ADVISOR LEAD) 10 mg disintegrating tabletIndications: Migraine Take 1 [...] (02/25/2018): Added automatically from request for surgery [id number] Crohn's disease of large intestine without compl ication 08/09/2017 Knee pain 04/18/2017 Thyroid activity decreased 01/10/2011 Encounters Date Type Department Care Team Description 08/14/2024 8:30 AM PRESENTATION DESIGNER Infusion [facility] [address] [place] [phone] Crohn's disease of large intestine without complication (HCC) (Primary Dx) 07/17/2024 8:30 AM PRESENTATION DESIGNER Infusion [facility] [address] [place] [phone] Crohn's disease of large intestine without complication (HCC) (Primary Dx) 06/19/2024 8:30 AM PRESENTATION DESIGNER Infusion [facility] [address] [place] [phone] Crohn's disease of large intestine without complication (HCC) (Primary Dx) from Last 3 Months Surgical History Surgery Date Site/Laterality Comments HERNIA REPAIR HYSTERECTOMY CHOLECYSTECTOMY Medical History Medical History Date Comments Migraines Thyroid disease Crohn's disease (HCC) PONV (postoperative nausea and vomiting) Hypertension [...] on file Legal Sex Female 2:53 AM PRESENTATION DESIGNER Gender Identity Not on file Sexual Orientation Not on file Obstetrics History Last Filed Vital Signs Vital Sign Reading Time Taken Comments Blood Pressure 126/81 08/14/2024 8:52 AM PRESENTATION DESIGNER Pulse 80 08/14/2024 8:52 AM PRESENTATION DESIGNER Temperature 36.6 C (97.8 F) 08/14/2024 8:52 AM PRESENTATION DESIGNER Respiratory Rate 18 08/14/2024 8:52 AM PRESENTATION DESIGNER Oxygen Saturation 98% 08/14/2024 8:52 AM PRESENTATION DESIGNER Inhaled Oxygen Concentration - - Weight 60.3 kg (133 lb) 08/14/2024 8:52 AM PRESENTATION DESIGNER Height 157.5 cm (5' 2 ) 07/17/2024 8:26 AM PRESENTATION DESIGNER Body Mass Index 24.33 07/17/2024 8:26 AM PRESENTATION DESIGNER Plan of Treatment Health Maintenance Due Date [...] this topic Medical Devices Implanted Type Area Watch Crystal Edge Grinder Device Identifier Shelf Expiration Date Model / Serial / Lot [employer] At2-M20 Acutrak 2 3.5-3.6mm 20mm Self Cut Cannulated Variable Pitch - S0 - [id number] Implanted:Qty: 1 on 02/26/2018 by Sebastián Bertrand MD at [facility] Screw Left: Arm [employer] 03/25/2024 AT2-M20 / 0 / [id number] Explanted Type Area Watch Crystal Edge Grinder Device Identifier Shelf Expiration Date Model / Serial / Lot [employer]aire [employer] [id number] Shante .045in 4in Trocar Point Both Ends Orthopedic Wire - [id number] Explanted:Qty: 2 on 02/26/2018 by Sebastián Bertrand MD at [facility] Wire Left: Arm [employer] [id number] / / Insurance [facility] MEDICARE [facility] [place] [address] [facility] Care Teams Balance Truer Relationship Specialty Start Date End Date Tae Mcfarland MD [address] [place] [address] PCP - General 06/18/20
--- OUTSIDE RECORDS SUMMARY | 2024-09-08 12:59 | XMS_ITS | Clinical Summary ---
Author Organization [facility] Address [address] [place] [address] Care Team Providers Care Hat Lacer Name Role Phone Sunny Redmond MD Primary Care Provider + [phone] Allergies No known active allergies Medications lisinopril [...] migh t be different from the original. Carpet Sewer - Dr Noriega ([facility]) No known active problems Social History Tobacco Use Types Packs/Day Years Used Date Smoking Tobacco: Former Smokeless Tobacco: Never Alcohol Use Standard Drinks/Week Comments Not Asked 0 (1 standard drink = 0.6 oz pur e alcohol) Comments Unknown Sex and Gender Information Value Date Recorded Sex Assigned at Not on file Legal Sex Female 6:03 AM SHOW HOST/HOSTESS Gender Identity Not on file Sexual Orientation [...] Comments DTAP/TDAP/TD VACCINES (1 - Tdap) 1979 PAP SMEAR 1981 CERVICAL CANCER SCREENING 1990 HPV/Cotest (-65) 1990 PAP SMEAR 1990 BREAST CANCER SCREENING 2000 COLORECTAL SCREENING 2005 Colorectal Cancer Screening 2005 FIT-DNA Q 3 years 2005 FIT/FOBT Q 1 year 2005 Flex Sig/CT Colonography Q 5 years 2005 ZOSTER VACCINE (1 of 2) 2010 INFLUENZA VACCINE (#1) 2024 RSV VACCINE (60+ or ) (1 - 1-dose 75+ series) [address] BLUE ACCESS CHOICE Member Subscriber Plan / Payer (Ef fective 2020-Present) Name:Karon Gaviria Relation to Subscriber:Spouse Name:OSCAR GAVIRIA Date of :1960 (Home) Address: [address] [place] [address] [place] [address] Payer ID:[id number] (NAIC) Type:[place] [address] Care Teams Hat Lacer Relationship Specialty Start Date End Date Sunny Redmond MD PCP - General Family Practice 11/13/13
--- OUTSIDE RECORDS SUMMARY | 2024-09-08 12:59 | XMS_ITS | Referral Summary ---
Author Organization [facility] Address [address] [place] [phone] Care Team Providers Care Sheet Metal Journeyman Name Role Phone Tae Mcfarland MD Primary Care Provide r Encounters Date Type Department Care Team Description 08/14/2024 8:30 AM BOXING INSTRUCTOR Infusion [facility] [address] [place] [phone] Crohn's disease of large intestine without complication (HCC) (Primary Dx) 07/17/2024 8:30 AM BOXING INSTRUCTOR Infusion [facility] [address] [place] [phone] Crohn's disease of large intestine without complication (HCC) (Primary Dx) 06/19/2024 8:30 AM BOXING INSTRUCTOR Infusion [facility] [address] [place] [phone] Crohn's disease of large intestine without complication (HCC) (Primary Dx) from Last 3 Months Allergies Active Allergy Reactions Criticality Noted Date Comments Codeine Other (See comments),Palpitations Low 04/10/2021 Reaction: hives, , Reaction: hives, , Medications hydroCHLOROthiazid e (HYDRODIURIL) 25 mg tablet Take 1 tablet (25 mg total) by mouth wrapping checker before breakfast Active topiramate (TOPAMAX) 50 mg tablet Take 1 tablet (50 mg total) by mouth 2 (two) times a day Active dicyclomine (BENTYL) 20 mg tablet Take 1 tablet (20 mg total) by mouth every 6 (six) hours Active amLODIPine (NORVASC) 5 mg tablet Take 1 tablet (5 mg total) by mouth wrapping checker before breakfast Active losartan (COZAAR) 50 mg tablet Take 50 mg by mouth wrapping checker before breakfast. Active amitriptyline (ELAVIL) 25 mg tablet Take 1 tablet (25 mg total) by mouth nightly Active zolpidem (AMBIEN) 5 mg tabletIndications: Sleep-Onset Insomnia Take 10 mg by mouth nightly as needed for sleep. Active levothyroxine sodium (TIROSINT) 50 mcg capsule 125 mcg wrapping checker before breakfast. Active meloxicam (MOBIC) 7.5 mg [...] by mouth nightly as needed Active rizatriptan NUTRITIONAL HEALTH COACH (MAXALT-NUTRITIONAL HEALTH COACH) 10 mg disintegrating tabletIndications: Migraine Take 1 [...] (02/25/2018): Added automatically from request for surgery [id number] Crohn's disease of large intestine without compl [...] on file Legal Sex Female 2:53 AM BOXING INSTRUCTOR Gender Identity Not on file Sexual Orientation Not on file Last Filed Vital Signs Vital Sign Reading Time Taken Comments Blood Pressure 126/81 08/14/2024 8:52 AM BOXING INSTRUCTOR Pulse 80 08/14/2024 8:52 AM BOXING INSTRUCTOR Temperature 36.6 C (97.8 F) 08/14/2024 8:52 AM BOXING INSTRUCTOR Respiratory Rate 18 08/14/2024 8:52 AM BOXING INSTRUCTOR Oxygen Saturation 98% 08/14/2024 8:52 AM BOXING INSTRUCTOR Inhaled Oxygen Concentration - - Weight 60.3 kg (133 lb) 08/14/2024 8:52 AM BOXING INSTRUCTOR Height 157.5 cm (5' 2 ) 07/17/2024 8:26 AM BOXING INSTRUCTOR Body Mass Index 24.33 07/17/2024 8:26 AM BOXING INSTRUCTOR Plan of Treatment Not on file Medical Devices Implanted Type Area Mule Developer Device Identifier Shelf Expiration Date Model / Serial / Lot [employer] At2-M20 Acutrak 2 3.5-3.6mm 20mm Self Cut Cannulated Variable Pitch - S0 - [id number] Implanted:Qty: 1 on 02/26/2018 by Sebastián Bertrand MD at [facility] Screw Left: Arm [employer] 03/25/2024 AT2-M20 / 0 / [id number] Explanted Type Area Mule Developer Device Identifier Shelf Expiration Date Model / Serial / Lot [employer] [id number] Shante .045in 4in Trocar Point Both Ends Orthopedic Wire - [id number] Explanted:Qty: 2 on 02/26/2018 by Sebastián Bertrand MD at [facility] Wire Left: Arm [employer] [id number] / / [place] [address] [facility] MEDICARE [facility] CHOICE PLUS [facility] H[facility]/PPO Address: [address] [address] [place] [address] [facility] Care Teams Sheet Metal Journeyman Relationship Specialty Start Date End Date Tae Mcfarland MD [address] [place] [address] PCP - General 06/18/20
== END 2024-09-08 11:26 | disposition home or self-care (01) ==
LOC: ANHLAB 11:27
PROVIDERS: PCP Emergency Medicine; Visit Provider Emergency Medicine
DX: R53.83 Other fatigue (principal)
CPT/HCPCS: 36415; 84443

== ENCOUNTER 2025-01-27 10:54 | Outpatient (CLI) | payer OTHER, SELFPAY ==
--- OUTSIDE RECORDS SUMMARY | 2025-01-27 11:31 | XMS_ITS | Clinical Summary ---
Author Organization [facility] Address [address] [place] [address] Care Team Providers Care Prescription Eyeglass Maker Name Role Phone Sunny Redmond MD Primary Care Provider [phone] Allergies No known active allergies Medications lisinopril [...] migh t be different from the original. 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 Gender Identity Not on file Sexual [...] 2:17 PM CDT Height 154.9 cm (5' 1) 10/29/2013 2:17 PM CDT Body Mass Index 32.31 10/29/2013 2:17 PM CDT Plan of Treatment Health Maintenance Due Date Last Done Comments DTAP/TDAP/TD VACCINES (1 - Tdap) 1979 HPV/Cotest (21-29) 1981 CERVICAL CANCER SCREENING 1990 HPV/Cotest (30-65) 1990 PAP SMEAR 1990 BREAST CANCER SCREENING 2000 COLORECTAL SCREENING 2005 Colorectal Cancer Screening 2005 FIT-DNA Q 3 years 2005 FIT/FOBT Q 1 year 2005 Flex Sig/CT Colonography Q 5 years 2005 ZOSTER VACCINE (1 of 2) 2010 INFLUENZA VACCINE (#1) 2025 RSV VACCINE (60+ or ) (1 - 1-dose 75+ series) [address] [employer] [place] [address] Care Teams Prescription Eyeglass Maker Relationship Specialty Start Date End Date Sunny Redmond MD PCP - General Family Practice 11/13/13
--- OUTSIDE RECORDS SUMMARY | 2025-01-27 11:31 | XMS_ITS | Clinical Summary ---
Author Organization [facility] Address [address] [address] Care Team Providers Care Managing Principal Name Role Phone Tae Mcfarland MD Primary Care Provider + [phone] Source Comments [facility],non-owned Affiliates and Associated Physician Practices is amultiple site organization consisting of ambulatory clinics and hospital sitesin [place], [place] and [place]. This disclosure is being madepursuant to the Care Everywhere program and may not contain all information available regarding this patient. Last updated 18.[facility] Allergies Active Allergy Reactions Criticality Noted Date Comments Codeine Palpitations 04/10/2021 Reaction: hives, , Medications * Be aware that medications may not be up to date on this document. Alwaysverify current medications with the patient. cephalexin (KEFLEX) 500 MG capsule Take 500 mg by mouth every 12 hours 05/09/2021 Active ondansetron (ZOFRAN) 4 MG tablet Take 4 mg by mouth 02/09/2021 Active levothyroxine (SYNTHROID) 100 MCG tablet Take 100 mcg by mouth once daily 07/15/2021 Active losartan (COZAAR) 50 MG tablet Take 50 mg by mouth once daily 05/05/2021 Active hydroCHLOROthia zide (HYDRODIURIL) 25 MG tablet Take 25 mg [...] mouth 2 times daily Active vitamin D3 (CHOLECALCIFERO L) 25 MCG (1000 UNITS) tablet Take 1,000 [...] at Not on file Legal Sex Female 2:15 PM CERTIFIED ADDICTION COUNSELOR Gender Identity Not on file Sexual [...] MAMMOGRAM 1960 MEDICARE AWV 12 MONTHS 1960 HIV SCREENING 1975 HEPATITIS C SCREENING 04/22/1978 DTAP/TDAP/TD VACCINES (1 - Tdap) 1979 PAP SMEAR 1981 PNEUMOCOCCAL VACCINE 50+ (1 of 1 - PCV) 2010 ZOSTER VACCINE (1 of 2) 2010 COVID-19 VACCINE (1 - 2023-2 5 season) 2024 DEPRESSION SCREENING 06/11/2024 INFLUENZA VACCINE (#1) 2025 Respiratory Syncytial Virus (RSV) Vaccine Pt: or [...] patient's age to complete this topic Insurance [facility] [place] [address] [facility] MEDICARE SELF PAY NO INSURANCE Member Subscriber Plan / Payer (Ef fective for All Dates) Name:Teto Malone Ingrid Member ID:Not on file Relation to Subscriber:Not on file Name:TETO MALONE Subscriber ID:Not on file (Home) Address: [address] [place] [address] [place] [address] Payer ID:Not on file Group ID:Not on file Type:Self Pay Address: [place], [place] Care Teams Managing Principal Relationship Specialty Start Date End Date Tae Mcfarland MD [address] [place] [address] [address] [place] [address] PCP - General 06/30/21
--- OUTSIDE RECORDS SUMMARY | 2025-01-27 11:31 | XMS_ITS | Clinical Summary ---
Author Organization [facility] Address [address] [place] [address] Care Team Providers Care Truck Terminal Manager Name Role Phone Tae Mcfarland MD Primary Care Provide r Allergies Active Allergy Reactions Criticality Noted Date Comments Codeine Other (See comments),Palpitations Low 04/10/2021 Reaction: hives, , Reaction: hives, , Medications hydroCHLOROthiazid e (HYDRODIURIL) 25 mg tablet Take 1 tablet (25 mg total) by mouth foreclosure paralegal before breakfast Active topiramate (TOPAMAX) 50 mg tablet Take 1 tablet (50 mg total) by mouth 2 (two) times a day Active dicyclomine (BENTYL) 20 mg tablet Take 1 tablet (20 mg total) by mouth every 6 (six) hours Active amLODIPine (NORVASC) 5 mg tablet Take 1 tablet (5 mg total) by mouth foreclosure paralegal before breakfast Active losartan (COZAAR) 50 mg tablet Take 50 mg by mouth foreclosure paralegal before breakfast. Active amitriptyline (ELAVIL) 25 mg tablet Take 1 tablet (25 mg total) by mouth nightly Active zolpidem (AMBIEN) 5 mg tabletIndications: Sleep-Onset Insomnia Take 10 mg by mouth nightly as needed for sleep. Active levothyroxine sodium (TIROSINT) 50 mcg capsule 125 mcg foreclosure paralegal before breakfast. Active meloxicam (MOBIC) 7.5 mg [...] by mouth nightly as needed Active rizatriptan COTTON ROLL PACKER (MAXALT-COTTON ROLL PACKER) 10 mg disintegrating tabletIndications: Migraine Take 1 tablet (10 mg total) by mouth once as needed for migraine May repeat in 2 hours if unresolved. Do not exceed 30 mg in 24 hours. 9 tablet 3 11/28/19 23 Active Active Problems Problem Noted Date Diagnosed Date Crohn disease 09/30/2024 Closed displaced fracture of scaphoid bone of le ft wrist 02/25/2018 Overview (02/25/2018): Added automatically from request for surgery [id number] Crohn's disease of large intestine without compl ication 08/09/2017 Knee pain 04/18/2017 Thyroid activity decreased 01/10/2011 Encounters Date Type Department Care Team Description 01/06/2025 12:00 PM CDT Infusion [facility] [address] [place] [phone] Pauline Almanzar RN Crohn's disease without complication, unspecified gastrointestinal tract location (HCC) (Primary Dx); Crohn's disease of large intestine without complication (HCC) 12/08/2024 10:15 AM CDT Infusion [facility] [address] [phone] Kia Diaz RN Crohn's disease without complication, unspecified gastrointestinal tract location (HCC) (Primary Dx); Crohn's disease of large intestine without complication (HCC) from Last 3 Months Surgical History Surgery [...] on file Legal Sex Female 2:53 AM MIXING MACHINE ATTENDANT Gender Identity Not on file Sexual Orientation Not on file Obstetrics History Last Filed Vital Signs Vital Sign Reading Time Taken Comments Blood Pressure 121/82 01/06/2025 12:16 PM CDT Pulse 83 01/06/2025 12:16 PM CDT Temperature 35.8 C (96.4 F) 01/06/2025 12:16 PM CDT Respiratory Rate 16 01/06/2025 12:16 PM CDT Oxygen Saturation 98% 12/08/2024 10:24 AM CDT Inhaled Oxygen Concentration - - Weight 58 kg (127 lb 14.4 oz) 01/06/2025 11:50 A M CDT Height 157.5 cm (5' 2) 07/17/2024 8:26 AM MIXING MACHINE ATTENDANT Body Mass Index 23.39 07/17/2024 8:26 AM MIXING MACHINE ATTENDANT Plan of Treatment Health Maintenance Due Date Last Done Comments Breast Cancer Screening-Mammogram 1960 Colon Cancer Screening-Colonoscopy 1960 Depression Screening 1960 Hepatitis C Screening 1960 DTaP/Tdap/Td Vaccine (1 - Tdap) 1971 Hepatitis B Screening 1978 Regular Well Visit/Exam 18-64 1978 Zoster Vaccine (1 of 2) 2010 Influenza Vaccine (#1) 2025 Pneumococcal vaccine <65 Aged Out No longer eligible based on patient's age to complete this topic Medical Devices Implanted Type Area Field Test Engineer Device Identifier Shelf Expiration Date Model / Serial / Lot [employer] At2-M20 Acutrak 2 3.5-3.6mm 20mm Self Cut Cannulated Variable Pitch - S0 - [id number] Implanted:Qty: 1 on 02/26/2018 by Sebastián Bertrand MD at [facility] Screw Left: Arm [employer] 03/25/2024 AT2-M20 / 0 / [id number] Explanted Type Area Field Test Engineer Device Identifier Shelf Expiration Date Model / Serial / Lot [employer] [id number] Shante .045in 4in Trocar Point Both Ends Orthopedic Wire - [id number] Explanted:Qty: 2 on 02/26/2018 by Sebastián Bertrand MD at [facility] Wire Left: Arm [employer] [id number] / / Insurance [facility] MEDICARE [facility] [place] [address] [facility] Care Teams Truck Terminal Manager Relationship Specialty Start Date End Date Tae Mcfarland MD [address] [facility] [place] [id number] PCP - General 06/18/20
--- OUTSIDE RECORDS SUMMARY | 2025-01-27 11:31 | XMS_ITS | Patient Health Record ---
Author Organization [facility] Address [address] [place] [address] Care Team Providers Care Distribution Accounting Clerk Name Role Phone Walt Haddad Unavailable [phone] Reason For Referral No Information Medications Medication SIG (Take, Route, Frequency, Duration) Notes Start Date End Date Status Estradiol 0.5 mg Tablet Oral 11/30/2021 Active Gabapentin 300 MG Capsule Oral 11/30/2021 Active amLODIPine Besylate 5 MG Tablet Oral 11/30/2021 Active Ondansetron HCl 4 MG Tablet Oral 11/30/2021 Active Losartan Potassium 50 MG Tablet Oral 11/30/2021 Active Topiramate 50 MG Tablet Oral 11/30/2021 Active Levothyroxine Sodium 100 MCG Tablet Oral 11/30/2021 Active DULoxetine HCl 60 MG Capsule Delayed Release Particles Oral 11/30/2021 Active Remicade *Pick strength-form from datatracker for eRX* 11/30/2021 Active Zaleplon 5 mg Capsule Oral 11/30/2021 Active Amitriptyline HCl 25 MG Tablet Oral 11/30/2021 Active hydroCHLOROthiazide 25 MG Tablet Oral 11/30/2021 Active Estradiol 0.01 % (0.1 mg/gram) Cream Vaginal *Pick strength-form from [place] for eRX* 11/30/2021 Active ALPRAZolam 0.5 MG Tablet Oral 11/30/2021 Active Immunizations Vaccine Route Administration Date Status Comme nts Pfizer Biontech Covid-19 Vac cine 2nd dose Unknown 08/10/2020 Administered Pfizer Biontech Covid-19 Vac cine 2nd dose Unknown 08/29/2020 Administered Social History Social History Additional Details Category Social Info Options Details Migrated Social History Migrated Social History Tobacco Years: Former smoker 11/02/2021 Plan Of Treatment No Information Insurance Providers Payer Name Payer Address Payer Phone Subscriber Number Group Number Insured Name Patient Relationship to Insured Coverage Start Date Coverage End Date [facility] [address] [place] [address] [id number] HANNA MALONE Spouse - patient is the spouse of the insured
--- OUTSIDE RECORDS SUMMARY | 2025-01-27 11:31 | XMS_ITS | Clinical Summary ---
Author Organization [facility] Address [address] [place] [address] Care Team Providers Care Pari Mutuel Ticket Seller Name Role Phone Tae Mcfarland MD Primary Care Provider [phone] Paul Arndt MD Unavailable [phone] Allergies Active Allergy Reactions Criticality Noted Date [...] 6:38 PM CDT Height 157.5 cm (5' 2) 04/10/2021 6:38 PM CDT Body Mass Index [...] Screening with HPV 1990 Mammogram Screening 2000 Pneumococcal Vaccine: 50+ Ye ars (1 of 1 - PCV) 2010 Zoster Vaccines (1 of 2) 2010 COVID-19 Vaccine (1 - 2023-2 5 season) 2024 PHQ-2 (Physician [place]) 06/11/2024 RSV Immunization or 60+ Years (1 [...] patient's age to complete this topic Insurance [facility] Care Teams Pari Mutuel Ticket Seller Relationship Specialty Start Date End Date Tae Mcfarland MD [address] [facility] [address] [place] [address] PCP - General INTERNAL MEDICINE 04/10/21 Paul Arndt MD [address] [address] Surgeon NEUROLOGICAL SURGERY 02/26/24
[2025-01-27 11:54] LABS: Hematocrit 39.1 % (37.0-47.0); Hemoglobin 13.2 g/dL (12.0-15.0); Immature Granulocyte Percent A 0.2 % (0-0.5); Lymphocytes Absolute Auto 1.64 K/mm3 (0.9-3.2); Mean Corpuscular HGB Conc 33.8 g/dl (32-36); Mean Corpuscular Hemoglobin 31.1 pg (26-34); Mean Corpuscular Volume 92.0 fl (80-100); Nucleated Red Blood Cells Absolute Auto 0.000 K/mm3 (0.0-0.012); Nucleated Red Blood Cells Perc 0.0 % (0.0-0.2); Platelet Count Result 184 k/mm3 (150-375); Red Blood Count 4.25 M/mm3 (4.2-5.4); White Blood Count 4.3 K/mm3 (4.5-10.0)
[2025-01-27 12:12] LABS: Alanine Aminotransferase 19 U/L (6-35); Albumin Level 4.3 g/dL (3.5-5.1); Alkaline Phosphatase 101 U/L (38-126); Anion Gap 6 mmol/L (4-12); Aspartate Amino Transferase 28 U/L (14-36); Bilirubin,Total 0.6 mg/dL (0.2-1.3); Blood Urea Nitrogen 12 mg/dL (7-17); Calcium 9.4 mg/dL (8.4-10.2); Carbon Dioxide 22 mmol/L (22-30); Chloride 110 mmol/L (98-107); Cholesterol 229 mg/dL (0-200); Estimated Glomerular Filt Rate > 60; Glucose 111 mg/dL (65-110); HDL Direct 99 mg/dL; Potassium 3.7 mmol/L (3.4-5.0); Sodium 138 mmol/L (137-145); Total Protein 7.5 g/dL (6.3-8.2); Triglycerides 69 mg/dL (<150)
[2025-01-27 12:48] LABS: Thyroid Stimulating Hormone 0.227 uIU/mL (0.465-4.680)
== END 2025-01-27 10:55 | disposition home or self-care (01) ==
LOC: ANHLAB 10:55
PROVIDERS: PCP Emergency Medicine; Visit Provider Emergency Medicine
DX: E78.5 Hyperlipidemia, unspecified (principal); E55.9 Vitamin D deficiency, unspecified; I10 Essential (primary) hypertension; E03.9 Hypothyroidism, unspecified; R53.83 Other fatigue
CPT/HCPCS: 36415; 80053; 80061; 82306; 84443; 85025

== ENCOUNTER 2025-02-04 16:50 | Emergency (ER) | payer OTHER, SELFPAY ==
--- NOTE | 2025-02-04 17:00 | ED.SKABFB ---
HPI - Skin/Abscess/Foreign Bdy General Chief complaint: Skin/Abscess/Foreign Body Stated complaint: rash on body Time Seen by Provider: 02/04/25 17:15 Source: patient Mode of arrival: ambulatory Limitations: no limitations History of Present Illness HPI narrative: Karon is a 64-year-old female patient presenting to the clinic today with complaints of a rash on bilateral arms. She reports she was out over the weekend working in the [employer] and developed a rash. Rash is raised, itchy and blistering appearing. Has been applying triamcinolone cream without relief. States that she also has taken Benadryl without relief. Related Data Home Medications ?Medication ?Instructions ?Recorded ?Confirmed ?Last Taken ?Type infliximab 100 mg intravenous 100 mg IV [id number] 01/06/23 02/02/25 Unknown History solution (Remicade) glucosamine HCl 500 mg tablet 500 mg PO BID 06/13/23 02/02/25 Unknown History alprazolam 0.5 mg tablet 0.5 mg PO DAILY PRN anxiety 02/02/25 02/04/25 Unknown History levothyroxine 100 mcg tablet mcg 02/04/25 Unknown History Allergies Allergy/AdvReac Type Severity Reaction Status Date / Time codeine Allergy Severe Hives Verified 02/04/25 17:51 Review of Systems Review of Systems: Pertinent positives per HPI. Patient denies any fever, chills, headache, visual changes, dizziness, cough, runny nose, sore throat, shortness of breath, chest pain, palpitations, nausea, vomiting, diarrhea, constipation, abdominal pain, or any urinary issues. [facility] Past Medical History Medical History Exposure to blood Hematuria Respiratory tract congestion with cough Pneumonia Fatigue Thyroid nodule Primary osteoarthritis involving multiple joints Contact dermatitis Hypotensive episode Dental infection Thyroid cancer Acute flank pain Other screening mammogram Visit for suture removal Kidney stone Anxiety Urolithiasis Insomnia UTI (urinary tract infection) HTN (hypertension) Hypothyroidism associated with surgical procedure Elevated cholesterol HTN (hypertension) Crohn's disease Surgical History Surgical History History of thyroidectomy History of repair of hiatal hernia Open hiatal hernia repair 8-9 years ago. History of cholecystectomy Cholecystectomy during hiatal hernia repair H/O: hysterectomy Open KLARISSA with bilateral SPO Family History Family History Mother Acute myocardial infarction Other Pneumonia Social History Social History Social History: She wishes to be listed as a Full Code. PCP: Dr. Mcfarland Caffeine-decaf tea, occasional soda Smoking packs per day: 0.5 Smoking cigarettes per day: 10.0 Years smoked: 15 Smoking pack-years: 7.50 Smoking status: Former smoker Tobacco type: cigarettes Second hand tobacco smoke exposure: No Smoking end date: 06/11/00 Alcohol intake: current Alcohol use details: rarely Substance use: never Substance use type: does not use Do You Feel Safe in your Home?: Yes Lack of Transportation: No Lack of Food: Never True Current Housing: I Have Housing Concerned About Future Housing: No Difficulty Paying Gas/Electric Bills: No Difficulty Paying for Meds: YES Currently Unemployed: No Education: High School Diploma/GED Difficulty w/ Childcare or Family Care: No Living arrangements: alone Gender identity (if verbalized by the patient): Female Spiritual care concerns: No Comments At the time of my signature, I reviewed and agree with the nursing past medical, surgical, social, and family history. There is no relevant family history pertinent to the patient complaint. Exam Narrative: General: Well-developed, well nourished, in no apparent distress Head: Normocephalic, atraumatic. Cardio: Regular rate and rhythm, s1 and s2 normal, no murmur appreciated. Resp: Clear to auscultation bilaterally, no rhonchi, rales, wheezing or rubs. Integumentary: [place], warm, and dry, intact without lesion, red, raised, itchy, blistery rash consistent with dermatitis to the left elbow fossa and bilateral forearms Course Course Emergency Course: Portions of this record may have been created with voice recognition software. Level of Care: Express Care Visit Vital Signs Vital signs: Vital Signs Temperature 37.1 C 02/04/25 17:11 Pulse Rate 88 02/04/25 17:11 Respiratory Rate 18 02/04/25 17:11 Blood Pressure 120/84 02/04/25 17:11 Pulse Oximetry 100 02/04/25 17:11 Oxygen Delivery Room Air 02/04/25 17:11 Temperature 37.1 C 02/04/25 17:11 Pulse Rate 88 02/04/25 17:11 Respiratory Rate 18 02/04/25 17:11 Blood Pressure 120/84 02/04/25 17:11 Pulse Oximetry 100 02/04/25 17:11 Oxygen Delivery Room Air 02/04/25 17:11 Vital signs reviewed MDM - Skin/Abscess/Foreign Bdy MDM Narrative Medical decision making narrative: At the time of visit patient is resting comfortably on the exam table. Patient appears to be nontoxic. Complaints of a rash on bilateral arms. She reports she was out over the weekend working [place] [employer] and developed a rash. Rash is raised, itchy and blistering appearing. Has been applying triamcinolone cream without relief. States that she also has taken Benadryl without relief. On exam patient has red raised blistery appearing rash in the left flexor elbow and on bilateral forearms Plan: I suspect patient has contact dermatitis to bilateral arms. Prescription for clobetasol cream and prednisone was sent to the pharmacy. Supportive measures were discussed with the patient and they voiced understanding discharge instructions and agrees to treatment plan. Return precautions reviewed Differential Diagnosis Differential diagnosis: Likely abscess of skin or subcutaneous tissue, viral exanthem, dermatophytosis, urticaria, herpes zoster, allergic reaction to drug, cellulitis, eczema, insect bites, impetigo and contact dermatitis Discharge Plan Discharge Clinical Impression: Dermatitis Patient Disposition: Home Condition: Stable Instructions: Antibiotic Form, Dermatitis (ED) Additional Instructions: Apply clobetasol cream as directed Take prednisone as directed Avoid hot showers May apply calamine lotion to rash Avoid scratching as this can cause a secondary infection May take Benadryl 25-50mg every 6 hours as needed for itching. Follow up with your PCP in 3-5 days if symptoms persist or sooner if they worsen Go to the Emergency Room if symptoms worsen- fever, rash spreading with treatment, shortness of breath, tongue swelling, drooling, or chest pain Patient Language: Salvadorean Prescriptions: New prednisone 10 mg tablet 10 mg PO DAILY Qty: 30 0RF Rx Instructions: 60mg po daily on day 1, 40mg po daily on days 2-4, 30mg po daily on days 5-6, 20mg po daily on days 7-8, 10mg po daily on days 9-10 clobetasol 0.05 % cream 1 applic topical BID 7 Days Qty: 60 0RF No Action infliximab [Remicade] 100 mg Recon Soln 100 mg IV [id number] Rx Instructions: last infusion 01/05/23 levothyroxine 100 mcg tablet alprazolam 0.5 mg tablet 0.5 mg PO DAILY PRN (Reason: anxiety) glucosamine HCl 500 mg tablet 500 mg PO BID Rx Instructions: administer with meals ondansetron 4 mg tablet,disintegrating 4 mg PO Q6H PRN (Reason: nausea and vomiting) Qty: 20 2RF amitriptyline 50 mg tablet 50 mg PO DAILY Qty: 90 2RF amlodipine 5 mg tablet See Rx Instructions .ROUTE .COMPLEX Qty: 90 2RF Dose Instruction: TAKE 1 TABLET BY MOUTH EVERY DAY Rx Instructions: TAKE 1 TABLET BY MOUTH EVERY DAY topiramate 50 mg tablet See Rx Instructions .ROUTE .COMPLEX Qty: 180 2RF Dose Instruction: TAKE 1 TABLET BY MOUTH TWICE A DAY Rx Instructions: TAKE 1 TABLET BY MOUTH TWICE A DAY losartan 50 mg tablet See Rx Instructions .ROUTE .COMPLEX Qty: 90 2RF Dose Instruction: TAKE 1 TABLET BY MOUTH EVERY DAY Rx Instructions: TAKE 1 TABLET BY MOUTH EVERY DAY albuterol sulfate [Ventolin HFA] 90 mcg/actuation HFA aerosol inhaler 2 puff inhalation QID PRN (Reason: shortness of breath or wheezing) Qty: 8.5 2RF dicyclomine 20 mg tablet See Rx Instructions .ROUTE .COMPLEX Qty: 90 2RF Dose Instruction: TAKE 1 TABLET BY MOUTH EVERY DAY Rx Instructions: TAKE 1 TABLET BY MOUTH EVERY DAY triamcinolone acetonide 0.1 % ointment See Rx Instructions .ROUTE .COMPLEX Qty: 80 2RF Dose Instruction: APPLY TO AFFECTED AREA TWICE A DAY Rx Instructions: APPLY TO AFFECTED AREA TWICE A DAY eszopiclone 2 mg tablet 2 mg PO QHS Qty: 30 1RF sertraline 100 mg tablet See Rx Instructions .ROUTE .COMPLEX Qty: 90 2RF Dose Instruction: TAKE 1 TABLET BY MOUTH EVERY DAY Rx Instructions: TAKE 1 TABLET BY MOUTH EVERY DAY quetiapine 100 mg tablet See Rx Instructions .ROUTE .COMPLEX Qty: 90 2RF Dose Instruction: TAKE 1 TABLET BY MOUTH EVERY DAY AT BEDTIME Rx Instructions: TAKE 1 TABLET BY MOUTH EVERY DAY AT BEDTIME Follow-up/Referrals: Tae Mcfarland MD [Primary Care Provider, Internal Medicine] Time of Disposition: 17:34 Quality NIHSS Nursing Documentation ED NIHSS nursing documentation: reviewed/agree
[2025-02-04 17:11] VITALS: BP 120/84; PULSE 88; RESP 18; TEMP 37.1; O2SAT 100
== END 2025-02-04 17:42 | disposition home or self-care (01) ==
PROVIDERS: Emergency Provider Nurse Practitioner Family; PCP Emergency Medicine
DX: L30.9 Dermatitis, unspecified (principal); I10 Essential (primary) hypertension; E03.9 Hypothyroidism, unspecified; Z87.891 Personal history of nicotine dependence; Z79.899 Other long term (current) drug therapy
CPT/HCPCS: 99213; G0463

== ENCOUNTER 2025-02-15 09:54 | Emergency (ER) | payer OTHER, SELFPAY ==
[2025-02-15 10:17] VITALS: BP 138/102; PULSE 90; RESP 19; TEMP 36.5; O2SAT 100
--- NOTE | 2025-02-15 10:46 | ED.GENADULT ---
HPI - General Adult General Chief complaint: Recheck/Abnormal Lab/Rx Stated complaint: rash, arm swollen Time Seen by Provider: 02/15/25 10:25 History of Present Illness HPI narrative: [age] old female presents to the emergency department for evaluation for a persistent rash on her left forearm. Patient reports approximately 2 weeks ago she was working in [place] exposed to weeds and weed killer. Patient initially contributed the rash to exposure to the weed killer. Patient did have follow-up with urgent care and was started on a course of steroids at that time. Patient reports that the symptoms persisted. Patient does have a rash at her left antecubital fossa and down the left arm. Related Data Home Medications ?Medication ?Instructions ?Recorded ?Confirmed ?Last Taken ?Type infliximab 100 mg intravenous 100 mg IV [id number] 01/06/23 02/02/25 Unknown History solution (Remicade) glucosamine HCl 500 mg tablet 500 mg PO BID 06/13/23 02/02/25 Unknown History alprazolam 0.5 mg tablet 0.5 mg PO DAILY PRN anxiety 02/02/25 02/04/25 Unknown History levothyroxine 100 mcg tablet mcg 02/04/25 Unknown History Allergies Allergy/AdvReac Type Severity Reaction Status Date / Time codeine Allergy Severe Hives Verified 02/04/25 17:51 Review of Systems Review of Systems: All systems reviewed & are unremarkable except as noted in HPI and below PMFSH Past Medical History Medical History Exposure to blood Hematuria Respiratory tract congestion with cough Pneumonia Fatigue Thyroid nodule Primary osteoarthritis involving multiple joints Contact dermatitis Hypotensive episode Dental infection Thyroid cancer Acute flank pain Other screening mammogram Visit for suture removal Kidney stone Anxiety Urolithiasis Insomnia UTI (urinary tract infection) HTN (hypertension) Hypothyroidism associated with surgical procedure Elevated cholesterol HTN (hypertension) Crohn's disease Surgical History Surgical History History of thyroidectomy History of repair of hiatal hernia Open hiatal hernia repair 8-9 years ago. History of cholecystectomy Cholecystectomy during hiatal hernia repair H/O: hysterectomy Open KLARISSA with bilateral SPO Family History Family History Mother Acute myocardial infarction Other Pneumonia Social History Social History Social History: She wishes to be listed as a Full Code. PCP: Dr. Mcfarland Caffeine-decaf tea, occasional soda Smoking packs per day: 0.5 Smoking cigarettes per day: 10.0 Years smoked: 15 Smoking pack-years: 7.50 Smoking status: Former smoker Tobacco type: cigarettes Second hand tobacco smoke exposure: No Smoking end date: 06/11/00 Alcohol intake: current Alcohol use details: rarely Substance use: never Substance use type: does not use Do You Feel Safe in your Home?: Yes Lack of Transportation: No Lack of Food: Never True Current Housing: I Have Housing Concerned About Future Housing: No Difficulty Paying Gas/Electric Bills: No Difficulty Paying for Meds: YES Currently Unemployed: No Education: High School Diploma/GED Difficulty w/ Childcare or Family Care: No Living arrangements: alone Gender identity (if verbalized by the patient): Female Spiritual care concerns: No Exam Narrative: APPEARANCE: Well appearing, no pain, no distress, well-nourished. HEAD: normocephalic, atraumatic. EYES: PERRLA/EOMI, conjunctivae clear. NOSE: Normal no drainage EARS:TMS clear with good light reflex. THROAT: Pharynx clear, no exudate. NECK: Supple. No adenopathy, no masses. RESPIRATORY: Airway patent, respirations nonlabored. Clear to auscultation bilaterally, no rales, rhonchi, wheezing. CARDIOVASCULAR: Regular rate and rhythm without murmurs rubs or gallops. ABDOMINAL: Soft, nontender, nondistended, normal bowel sounds MUSCULOSKELETAL: Moves all extremities. Strength/ROM intact, No edema, No calf tenderness. NEURO: Alert. Cranial nerves II through XII intact. Good gait. Good coordination SKIN: Erythema of left antecubital fossa, consistent with allergic dermatitis Course Vital Signs Vital signs: Vital Signs Temperature 97.7 F 02/15/25 10:17 Pulse Rate 90 02/15/25 10:17 Respiratory Rate 19 02/15/25 10:17 Blood Pressure 138/102 H 02/15/25 10:17 Pulse Oximetry 100 02/15/25 10:17 Temperature 97.7 F 02/15/25 10:17 Pulse Rate 90 02/15/25 10:17 Respiratory Rate 19 02/15/25 10:17 Blood Pressure 138/102 H 02/15/25 10:17 Pulse Oximetry 100 02/15/25 10:17 Medical Decision Making MDM Narrative Medical decision making narrative: 64 old female presents emergency department for evaluation for concern for worsen allergic reaction to her left arm. Patient's left antecubital fossa was concerning for allergic dermatitis versus cellulitis. Patient is being started on a Medrol Dosepak along with Keflex. Patient was encouraged of close follow-up with primary care physician. Patient was educated on reasons to return to the emergency department. All questions concerns were addressed. Differential Diagnosis Differential Diagnosis: Cellulitis, thrombophlebitis, allergic dermatitis Vital Signs Vital Signs: Vital Signs Temperature 97.7 F 02/15/25 10:17 Pulse Rate 90 02/15/25 10:17 Respiratory Rate 19 02/15/25 10:17 Blood Pressure 138/102 H 02/15/25 10:17 Pulse Oximetry 100 02/15/25 10:17 Temperature 97.7 F 02/15/25 10:17 Pulse Rate 90 02/15/25 10:17 Respiratory Rate 19 02/15/25 10:17 Blood Pressure 138/102 H 02/15/25 10:17 Pulse Oximetry 100 02/15/25 10:17 Discharge Plan Discharge Clinical Impression: Allergic dermatitis Patient Disposition: Home Condition: Stable Instructions: Antibiotic Form, Cellulitis (ED), Poison [place] (ED) Additional Instructions: Medrol Dosepak as directed. Antibiotic as directed until completed. Have close follow-up with primary care physician for a recheck. If you have any worsening symptoms then please call or return to the emergency department. Patient Language: Ecuadorean Prescriptions: New cephalexin 500 mg capsule 500 mg PO BID 7 Days Qty: 14 0RF methylprednisolone [Medrol (Lucio)] 4 mg tablets,dose pack See Rx Instructions .ROUTE .COMPLEX Qty: 21 0RF Rx Instructions: for 6 days No Action infliximab [Remicade] 100 mg Recon Soln 100 mg IV [id number] Rx Instructions: last infusion 01/05/23 prednisone 10 mg tablet 10 mg PO DAILY Qty: 30 0RF Rx Instructions: 60mg po daily on day 1, 40mg po daily on days 2-4, 30mg po daily on days 5-6, 20mg po daily on days 7-8, 10mg po daily on days 9-10 clobetasol 0.05 % cream 1 applic topical BID 7 Days Qty: 60 0RF levothyroxine 100 mcg tablet alprazolam 0.5 mg tablet 0.5 mg PO DAILY PRN (Reason: anxiety) glucosamine HCl 500 mg tablet 500 mg PO BID Rx Instructions: administer with meals ondansetron 4 mg tablet,disintegrating 4 mg PO Q6H PRN (Reason: nausea and vomiting) Qty: 20 2RF amitriptyline 50 mg tablet 50 mg PO DAILY Qty: 90 2RF amlodipine 5 mg tablet See Rx Instructions .ROUTE .COMPLEX Qty: 90 2RF Dose Instruction: TAKE 1 TABLET BY MOUTH EVERY DAY Rx Instructions: TAKE 1 TABLET BY MOUTH EVERY DAY topiramate 50 mg tablet See Rx Instructions .ROUTE .COMPLEX Qty: 180 2RF Dose Instruction: TAKE 1 TABLET BY MOUTH TWICE A DAY Rx Instructions: TAKE 1 TABLET BY MOUTH TWICE A DAY losartan 50 mg tablet See Rx Instructions .ROUTE .COMPLEX Qty: 90 2RF Dose Instruction: TAKE 1 TABLET BY MOUTH EVERY DAY Rx Instructions: TAKE 1 TABLET BY MOUTH EVERY DAY albuterol sulfate [Ventolin HFA] 90 mcg/actuation HFA aerosol inhaler 2 puff inhalation QID PRN (Reason: shortness of breath or wheezing) Qty: 8.5 2RF dicyclomine 20 mg tablet See Rx Instructions .ROUTE .COMPLEX Qty: 90 2RF Dose Instruction: TAKE 1 TABLET BY MOUTH EVERY DAY Rx Instructions: TAKE 1 TABLET BY MOUTH EVERY DAY triamcinolone acetonide 0.1 % ointment See Rx Instructions .ROUTE .COMPLEX Qty: 80 2RF Dose Instruction: APPLY TO AFFECTED AREA TWICE A DAY Rx Instructions: APPLY TO AFFECTED AREA TWICE A DAY eszopiclone 2 mg tablet 2 mg PO QHS Qty: 30 1RF sertraline 100 mg tablet See Rx Instructions .ROUTE .COMPLEX Qty: 90 2RF Dose Instruction: TAKE 1 TABLET BY MOUTH EVERY DAY Rx Instructions: TAKE 1 TABLET BY MOUTH EVERY DAY quetiapine 100 mg tablet See Rx Instructions .ROUTE .COMPLEX Qty: 90 2RF Dose Instruction: TAKE 1 TABLET BY MOUTH EVERY DAY AT BEDTIME Rx Instructions: TAKE 1 TABLET BY MOUTH EVERY DAY AT BEDTIME hydroxyzine HCl 25 mg tablet 25 mg PO TID PRN (Reason: itching) Qty: 30 0RF Follow-up/Referrals: Tae Mcfarland MD [Primary Care Provider, Internal Medicine]
--- OUTSIDE RECORDS SUMMARY | 2025-02-15 10:48 | XMS_ITS | Clinical Summary ---
Author Organization [employer] Address [address] [place] [address] Care Team Providers Care Aquacultural Worker Supervisor Name Role Phone Sunny Redmond MD Primary Care Provider [phone] Allergies No known active allergies Medications lisinopril [...] migh t be different from the original. 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
--- OUTSIDE RECORDS SUMMARY | 2025-02-15 10:48 | XMS_ITS | Clinical Summary ---
Author Organization [facility] [employer] Address [address] [place] [address] Care Team Providers Care Digester Operator Helper Name Role Phone Tae Mcfarland MD Primary Care Provider [phone] Source Comments [facility], [facility],non-owned Affiliates and Associated Physician Practices is amultiple site organization consisting of ambulatory clinics and hospital sitesin [place], [place], [place] and [place]. This disclosure is being madepursuant to the Care Everywhere program and may not contain all information available regarding this patient. 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 Gender Identity Not on file Sexual [...] patient's age to complete this topic Insurance [facility] [place] [address] [place] [address] [facility] [place] [address] [employer] SELF PAY NO INSURANCE Member Subscriber Plan / Payer (Ef fective for All Dates) Name:Teto Malone Ingrid Member ID:Not on file Relation to Subscriber:Not on file Name:TETO MALONE Subscriber ID:Not on file (Home) Address: [address] [place] [address] [place] [address] Payer ID:Not on file Group ID:Not on file Type:Self Pay Address: [place], [place] Care Teams Digester Operator Helper Relationship Specialty Start Date End Date Tae Mcfarland MD [address] [place] [address] [address] [place] [address] PCP - General 06/30/21
--- OUTSIDE RECORDS SUMMARY | 2025-02-15 10:48 | XMS_ITS | Clinical Summary ---
Author Organization [facility] Address [address] [place] [phone] Care Team Providers Care Optimization Specialist Name Role Phone Tae Mcfarland MD Primary Care Provide r Allergies Active Allergy Reactions Criticality Noted Date Comments Codeine Other (See comments),Palpitations Low 04/10/2021 Reaction: hives, , Reaction: hives, , Medications hydroCHLOROthiazi de (HYDRODIURIL) 25 mg tablet Take 1 tablet (25 mg total) by mouth early childhood teacher before breakfast Active topiramate (TOPAMAX) 50 mg tablet Take 1 tablet (50 mg total) by mouth 2 (two) times a day Active dicyclomine (BENTYL) 20 mg tablet Take 1 tablet (20 mg total) by mouth every 6 (six) hours Active amLODIPine (NORVASC) 5 mg tablet Take 1 tablet (5 mg total) by mouth early childhood teacher before breakfast Active losartan (COZAAR) 50 mg tablet Take 50 mg by mouth early childhood teacher before breakfast. Active amitriptyline (ELAVIL) 25 mg tablet Take 1 tablet (25 mg total) by mouth nightly Active zolpidem (AMBIEN) 5 mg tabletIndications :Sleep-Onset Insomnia Take 10 mg by mouth nightly as needed for sleep. Active meloxicam (MOBIC) 7.5 mg tablet Take 1 tablet (7.5 mg total) by mouth 2 (two) times a day. 60 tablet 2 018 Active Additional Information Patient not taking.Reported on 02/08/2025 ibuprofen, bulk, 100 % powder Take by mouth Act young multivit with min-folic acid (Adult One Daily Multivitamin) 0.4 mg tablet Take 1 tablet by mouth 3 (three) times a day with meals Active ALPRAZolam (XANAX) 0.5 mg tablet Take 1 tablet (0.5 mg total) by mouth 3 (three) times a day as needed 022 Active ALPRAZolam (XANAX) 0.5 mg tablet TAKE 1 TABLET BY MOUTH THREE TIMES A DAY NEEDED FOR ANXIETY Active atorvastatin (LIPITOR) 20 mg tablet Take 1 tablet (20 mg total) by mouth Active cephalexin (KEFLEX) 500 mg capsule Take 1 capsule (500 mg total) by mouth every 12 (twelve) hours Active cholecalciferol (VITAMIN D-3) 25 mcg (1,000 unit) tablet Take 1 tablet (1,000 Units total) by mouth daily Active eszopiclone (LUNESTA) 2 mg tablet Active DULoxetine DR (CYMBALTA) 60 mg capsule Active gabapentin (NEURONTIN) 300 mg capsule Take 1 capsule (300 mg total) by mouth 3 (three) times a day Active lisinopriL (PRINIVIL,ZESTRIL ) 40 mg tablet Take 1 tablet (40 mg total) by mouth daily Active metFORMIN (GLUCOPHAGE) 500 mg tablet Take 1 tablet (500 mg total) by mouth Active metoprolol (LOPRESSOR) 100 mg tablet Take 1 tablet (100 mg total) by mouth daily Active ondansetron (ZOFRAN) 4 mg tablet Take 1 tablet (4 mg total) by mouth Active propranoloL (INDERAL) 10 mg tablet Take 1 tablet (10 mg total) by mouth every 12 (twelve) hours 023 Active QUEtiapine (SEROquel) 50 mg tablet Take 1 tablet (50 mg total) by mouth daily Active QUEtiapine (SEROquel) 50 mg tablet Take 1 tablet (50 mg total) by mouth nightly 023 Active sertraline (ZOLOFT) 50 mg tablet Take 1 tablet (50 mg total) by mouth daily 023 Active venlafaxine (EFFEXOR) 37.5 mg tablet Take 1 tablet (37.5 mg total) by mouth daily Active zaleplon (SONATA) 5 mg capsule 022 Active amitriptyline (ELAVIL) 25 mg tablet Take 1 tablet (25 mg total) by mouth daily Active amLODIPine (NORVASC) 5 mg tablet Take 1 tablet (5 mg total) by mouth daily Active hydroCHLOROthiazi de (HYDRODIURIL) 25 mg tablet Take 1 tablet (25 mg total) by mouth daily Active zolpidem (AMBIEN) 10 mg tablet Take 1 tablet (10 mg total) by mouth nightly as needed Active rizatriptan SENIOR STORAGE ADMINISTRATOR (MAXALT-SENIOR STORAGE ADMINISTRATOR) 10 mg disintegrating tabletIndications :Migraine Take 1 tablet (10 mg total) by mouth once as needed for migraine May repeat in 2 hours if unresolved. Do not exceed 30 mg in 24 hours. 9 tablet 3 023 Active Additional Information Patient not taking.Reported on 02/08/2025 levothyroxine (SYNTHROID) 75 mcg tablet Take 1 tablet (75 mcg total) by mouth early childhood teacher before breakfast Active Qulipta 60 mg tablet Take 1 tablet by mouth daily 025 Active albuterol HFA (PROVENTIL HFA,VENTOLIN HFA,PROAIR HFA) 90 mcg/actuation inhaler Inhale 2 puffs 025 Active clobetasoL (TEMOVATE) 0.05 % cream Apply topically Active inFLIXimab (REMICADE) 100 mg injection Infuse 10 mL (100 mg total) IV 023 Active predniSONE (DELTASONE) 10 mg tablet Take 1 tablet (10 mg) by mouth 025 Active terbinafine (LamISIL) 1 % creamIndications: tinea corporis Apply topically 2 (two) times a day 24 g 025 Active hydrOXYzine (ATARAX) 25 mg tabletIndications :Pruritus of Skin Take 1 tablet (25 mg total) by mouth 2 (two) times a day as needed for itching 10 tablet 025 Active levothyroxine sodium (TIROSINT) 50 mcg capsule 125 mcg early childhood teacher before breakfast. 2024 Discontinued levothyroxine (SYNTHROID) 100 mcg tablet Take 1 tablet (100 mcg total) by mouth daily 023 2024 Discontinued Active Problems Problem Noted Date Diagnosed Date Crohn disease 09/30/2024 Closed displaced fracture of scaphoid bone of le ft wrist 02/25/2018 Overview (02/25/2018): Added automatically from request for surgery [id number] Crohn's disease of large intestine without compl ication 08/09/2017 Knee pain 04/18/2017 Thyroid activity decreased 01/10/2011 Encounters Date Type Department Care Team Description 02/08/2025 12:30 PM CDT Office Visit [facility] [place] Care at [address] [phone] Dottie Salas NP Rash and nonspecific skin eruption (Primary Dx) 02/03/2025 8:00 AM CDT Infusion [facility] [address] [place] [phone] Pauline Almanzar RN Crohn's disease without complication, unspecified gastrointestinal tract location (HCC) (Primary Dx); Crohn's disease of large intestine without complication (HCC) 01/06/2025 12:00 PM CDT Infusion [facility] [address] [place] [phone] Pauline Almanzar RN Crohn's disease without complication, unspecified gastrointestinal tract location (HCC) (Primary Dx); Crohn's disease of large intestine without complication (HCC) 12/08/2024 10:15 AM CDT Infusion [facility] [address] [place] [phone] Kia Diaz RN Crohn's disease without complication, [...] on file Legal Sex Female 2:53 AM TRANSPORTATION ENGINEERING TECHNICIAN Gender Identity Not on file Sexual Orientation Not on file Obstetrics History Last Filed Vital Signs Vital Sign Reading Time Taken Comments Blood Pressure 126/80 02/08/2025 11:59 AM CDT Pulse 92 02/08/2025 11:59 AM CDT Temperature 36.4 C (97.6 F) 02/08/2025 11:59 AM CDT Respiratory Rate 20 02/08/2025 11:59 AM CDT Oxygen Saturation 98% 02/08/2025 11:59 AM CDT Inhaled Oxygen Concentration - - Weight 56.7 kg (125 lb) 02/08/2025 11:59 AM CDT Height 157.5 cm (5' 2) 07/17/2024 8:26 AM TRANSPORTATION ENGINEERING TECHNICIAN Body Mass Index 22.86 07/17/2024 8:26 AM TRANSPORTATION ENGINEERING TECHNICIAN Plan of Treatment Health Maintenance Due Date Last Done Comments Breast Cancer Screening-Mammogram 1960 Colon Cancer Screening-Colonoscopy 1960 Depression Screening 1960 Hepatitis C Screening 1960 DTaP/Tdap/Td Vaccine (1 - Tdap) 1971 Hepatitis B Screening 1978 Regular Well Visit/Exam 18-64 1978 Pneumococcal vaccine <65 (1 of 2 - PCV) 1979 Zoster Vaccine (1 of 2) 1979 Influenza Vaccine (#1) 2025 Medical Devices Implanted Type Area Head Cd Reactor Operator Device Identifier Shelf Expiration Date Model / Serial / Lot [employer] At2-M20 Acutrak 2 3.5-3.6mm 20mm Self Cut Cannulated Variable Pitch - S0 - [id number] Implanted:Qty: 1 on 02/26/2018 by [facility]: Arm [employer] 03/25/2024 AT2-M20 / 0 / [id number] Explanted Type Area Head Cd Reactor Operator Device Identifier Shelf Expiration Date Model / Serial / Lot [employer] [id number] Shante .045in 4in Trocar Point Both Ends Orthopedic Wire - [id number] Explanted:Qty: 2 on 02/26/2018 by Sebastián Bertrand MD at [facility] Wire Left: Arm [employer] [id number] / / Insurance [facility] MEDICARE [facility] Care Teams Optimization Specialist Relationship Specialty Start Date End Date Tae Mcfarland MD [address] [place] [address] PCP - General 06/18/20
--- OUTSIDE RECORDS SUMMARY | 2025-02-15 10:48 | XMS_ITS | Clinical Summary ---
Author Organization [facility] Address [address] [place] [id number] Care Team Providers Care Damage Appraiser Name Role Phone Tae Mcfarland MD Primary Care Provider [phone] Paul Arndt MD Unavailable [phone] Allergies Active Allergy Reactions Criticality Noted Date [...] 2010 Zoster Vaccines (1 of 2) 2010 PHQ-2 (Physician [place]) 06/11/2024 COVID-19 Vaccine (1 - 2023-2 5 season) 2025 RSV Immunization or 60+ Years (1 - 1-dose 75+ series) 2035 Meningococcal B Vaccine Aged Out No l onger eligible based on patient's age to complete this topic Meningococcal Vaccine Aged Out No sergio joshua eligible based on patient's age to complete this topic RSV Immunizations Under 20 Months Aged Out No longer eligible based on patient's age to complete this topic Insurance [facility] Care Teams Damage Appraiser Relationship Specialty Start Date End Date Tae Mcfarland MD [address] [facility] [address] [place] [address] PCP - General INTERNAL MEDICINE 04/10/21 Paul Arndt MD [address] [address] Surgeon NEUROLOGICAL SURGERY 02/26/24
[2025-02-15] MEDS: dexAMETHasone SOD PHOS INJ 10 MG/ML 1 ML VIAL IM (10:53)
[2025-02-15] MEDS: CEPHALEXIN 500 MG CAPSULE PO (10:53)
== END 2025-02-15 11:08 | disposition home or self-care (01) ==
PROVIDERS: Emergency Provider Emergency Medicine; PCP Emergency Medicine
DX: L30.9 Dermatitis, unspecified (principal); M19.90 Unspecified osteoarthritis, unspecified site; Z87.442 Personal history of urinary calculi; F41.9 Anxiety disorder, unspecified; Z87.440 Personal history of urinary (tract) infections; I10 Essential (primary) hypertension; E78.5 Hyperlipidemia, unspecified; K50.90 Crohn's disease, unspecified, without complications
CPT/HCPCS: 96372; 99283; A9270; J1100

== ENCOUNTER 2025-03-27 10:02 | Outpatient (CLI) | payer OTHER, SELFPAY ==
--- OUTSIDE RECORDS SUMMARY | 2025-03-27 10:46 | XMS_ITS | Clinical Summary ---
Author Organization [facility] Address [address] [facility] [place] [address] Care Team Providers Care Instructor Adjunct Pharmacy Technician Name Role Phone Tae Mcfarland MD Primary Care Provider [phone] Source Comments [facility],non-owned Affiliates and Associated Physician Practices is amultiple site organization consisting of ambulatory clinics and hospital sitesin [place], [place], [place] and [place]. This disclosure is being madepursuant to the Care Everywhere program and may not contain all information available regarding this patient. 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 [place] [address] [facility] [employer] MEDICARE SELF PAY NO INSURANCE Member Subscriber Plan / Payer (Ef fective for All Dates) Name:Teto Malone Ingrid Member ID:Not on file Relation to Subscriber:Not on file Name:TETO MALONE Subscriber ID:Not on file (Home) Address: [address] [place] [address] [place] [address] Payer ID:Not on file Group ID:Not on file Type:Self Pay Address: [place], [place] Care Teams Instructor Adjunct Pharmacy Technician Relationship Specialty Start Date End Date Tae Mcfarland MD [address] [place] [address] [address] [place] [address] PCP - General 06/30/21
--- OUTSIDE RECORDS SUMMARY | 2025-03-27 10:46 | XMS_ITS | Clinical Summary ---
Author Organization [facility] Address [address] [place] [phone] Care Team Providers Care Co Founder And Cto Name Role Phone Tae Mcfarland MD Primary Care Provide r Allergies Active Allergy Reactions Criticality Noted Date Comments Codeine Other (See comments),Palpitations Low 04/10/2021 Reaction: hives, , Reaction: hives, , Medications hydroCHLOROthiazid e (HYDRODIURIL) 25 mg tablet Take 1 tablet (25 mg total) by mouth early childhood services coordinator before breakfast Active topiramate (TOPAMAX) 50 mg tablet Take 1 tablet (50 mg total) by mouth 2 (two) times a day Active dicyclomine (BENTYL) 20 mg tablet Take 1 tablet (20 mg total) by mouth every 6 (six) hours Active amLODIPine (NORVASC) 5 mg tablet Take 1 tablet (5 mg total) by mouth early childhood services coordinator before breakfast Active losartan (COZAAR) 50 mg tablet Take 50 mg by mouth early childhood services coordinator before breakfast. Active amitriptyline (ELAVIL) 25 mg [...] by mouth nightly as needed Active rizatriptan RESIDENTIAL SUBSTANCE ABUSE COUNSELOR (MAXALT-RESIDENTIAL SUBSTANCE ABUSE COUNSELOR) 10 mg disintegrating tabletIndications: Migraine Take 1 tablet (10 mg total) by mouth once as needed for migraine May repeat in 2 hours if unresolved. Do not exceed 30 mg in 24 hours. 9 tablet 3 11/28/19 23 Active Additional Information Patient not taking.Reported on 02/08/2025 levothyroxine (SYNTHROID) 75 mcg tablet Take 1 tablet (75 mcg total) by mouth early childhood services coordinator before breakfast Active Qulipta 60 mg tablet Take 1 tablet by mouth daily 01/02/20 25 Active albuterol HFA (PROVENTIL HFA,VENTOLIN HFA,PROAIR HFA) 90 mcg/actuation inhaler Inhale 2 puffs 10/18/19 25 Active clobetasoL (TEMOVATE) 0.05 % cream Apply topically 02/05/20 25 Active inFLIXimab (REMICADE) 100 mg injection Infuse 10 mL (100 mg total) IV 01/07/20 23 Active predniSONE (DELTASONE) 10 mg tablet Take 1 tablet (10 mg) by mouth 02/05/20 25 Active terbinafine (LamISIL) 1 % creamIndications:t inea corporis Apply topically 2 (two) times a day 24 g 02/09/20 25 Active hydrOXYzine (ATARAX) 25 mg tabletIndications: Pruritus of Skin Take 1 tablet (25 mg total) by mouth 2 (two) times a day as needed for itching 10 tablet 02/09/20 25 Active Active Problems Problem Noted Date Diagnosed Date Crohn disease 09/30/2024 Closed displaced fracture of scaphoid bone of le ft wrist 02/25/2018 Overview (02/25/2018): Added automatically from request for surgery [id number] Crohn's disease of large intestine without compl ication 08/09/2017 Knee pain 04/18/2017 Thyroid activity decreased 01/10/2011 Encounters Date Type Department Care Team Description 03/03/2025 8:00 AM CDT Infusion [facility] [address] [place] [phone] America Garcia RN Crohn's disease without complication, unspecified gastrointestinal tract location (HCC) (Primary Dx); Crohn's disease of large intestine without complication (HCC) 03/03/2025 Orders Only [facility] [address] [place] [phone] Christine Denton [facility] 02/08/2025 12:30 PM CDT Office Visit [facility] Care at [address] [phone] Dottie Salas NP Rash and nonspecific skin eruption (Primary Dx) 02/03/2025 8:00 AM CDT Infusion [facility] [address] [place] [phone] Pauline Almanzar RN Crohn's disease without complication, unspecified gastrointestinal tract location (HCC) (Primary Dx); Crohn's disease of large intestine without complication (HCC) 01/06/2025 12:00 PM CDT Infusion [facility] Infusion [address] [phone] Pauline Almanzar RN Crohn's disease without complication, [...] on file 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 Gender Identity Not on file Sexual Orientation Not on file Obstetrics History Last Filed Vital Signs Vital Sign Reading Time Taken Comments Blood Pressure 143/92 03/03/2025 7:58 AM CDT Pulse 98 03/03/2025 7:58 AM CDT Temperature 36.4 C (97.5 F) 03/03/2025 7:58 AM CDT Respiratory Rate 18 03/03/2025 7:58 AM CDT Oxygen Saturation 98% 03/03/2025 7:58 AM CDT Inhaled Oxygen Concentration - - Weight 56.3 kg (124 lb 3.2 oz) 03/03/2025 7:45 A M CDT Height 157.5 cm (5' 2) 07/17/2024 8:26 AM 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 Body Mass Index 22.72 07/17/2024 8:26 AM 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 Plan of Treatment Health Maintenance Due Date [...] (#1) 2025 Medical Devices Implanted Type Area Cutter Hot Knife Device Identifier Shelf Expiration Date Model / Serial / Lot [employer] At2-M20 Acutrak 2 3.5-3.6mm 20mm Self Cut Cannulated Variable Pitch - S0 - [id number] Implanted:Qty: 1 on 02/26/2018 by Sebastián Bertrand MD at [facility] Screw Left: Arm [employer] 03/25/2024 AT2-M20 / 0 / [id number] Explanted Type Area Cutter Hot Knife Device Identifier Shelf Expiration Date Model / Serial / Lot [employer] [id number] Shante .045in 4in [place]car [place] Both Ends Orthopedic Wire - [id number] Explanted:Qty: 2 on 02/26/2018 by Sebastián Bertrand MD at [facility] Wire Left: Arm [employer] [id number] / / Insurance [facility] MEDICARE [facility] Care Teams Co Founder And Cto Relationship Specialty Start Date End Date Tae Mcfarland MD [address] [place] [address] PCP - General 06/18/20
--- OUTSIDE RECORDS SUMMARY | 2025-03-27 10:46 | XMS_ITS | Clinical Summary ---
Author Organization [employer] [facility] Address [address] [place] [address] Care Team Providers Care Maori Liaison Adviser Name Role Phone Sunny Redmond MD Primary Care Provider [phone] Allergies No known active allergies Medications lisinopril [...] migh t be different from the original. 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
--- OUTSIDE RECORDS SUMMARY | 2025-03-27 10:46 | XMS_ITS | Clinical Summary ---
Author Organization [facility] Address [address] [place] [address] Care Team Providers Care Human Resource Internship Name Role Phone Tae Mcfarland MD Primary Care Provider [phone] Paul Arndt MD Unavailable [phone] Allergies Active Allergy Reactions Criticality Noted Date [...] Vaccines (1 of 2) 2010 PHQ-2 (Physician [place]) 06/11/2024 COVID-19 Vaccine (1 - 2023-2 5 season) 2025 Influenza Adult (#1) 2025 RSV Immunization or 60+ Years (1 [...] patient's age to complete this topic Insurance [facility] Care Teams Human Resource Internship Relationship Specialty Start Date End Date Tae Mcfarland MD [address] [facility] 2 [place], [place] [id number] PCP - General INTERNAL MEDICINE 04/10/21 Paul Arndt MD [address] [address] Surgeon NEUROLOGICAL SURGERY 02/26/24
--- OUTSIDE RECORDS SUMMARY | 2025-03-27 10:46 | XMS_ITS | Patient Health Record ---
Author Organization [facility] Address [address] [place] [address] Care Team Providers Care Conductor Freight Name Role Phone Walt Haddad Unavailable [phone] Reason For Referral No Information Medications Medication [...] Oral 11/30/2021 Active Remicade *Pick strength-form from [employer] for eRX* 11/30/2021 Active Zaleplon 5 mg Capsule Oral 11/30/2021 Active Amitriptyline HCl 25 MG Tablet Oral 11/30/2021 Active hydroCHLOROthiazide 25 MG Tablet Oral 11/30/2021 Active Estradiol 0.01 % (0.1 mg/gram) Cream Vaginal *Pick strength-form from [employer] for eRX* 11/30/2021 Active ALPRAZolam 0.5 MG [...] Insured Coverage Start Date Coverage End Date [facility] [address] [place] [address] [id number] HANNA MALONE Spouse - patient is the spouse of the insured
[2025-03-27 11:16] LABS: Hematocrit 40.4 % (37.0-47.0); Hemoglobin 13.5 g/dL (12.0-15.0); Immature Granulocyte Percent A 0.3 % (0-0.5); Lymphocytes Absolute Auto 1.04 K/mm3 (0.9-3.2); Mean Corpuscular HGB Conc 33.4 g/dl (32-36); Mean Corpuscular Hemoglobin 31.5 pg (26-34); Mean Corpuscular Volume 94.2 fl (80-100); Nucleated Red Blood Cells Absolute Auto 0.000 K/mm3 (0.0-0.012); Nucleated Red Blood Cells Perc 0.0 % (0.0-0.2); Platelet Count Result 159 k/mm3 (150-375); Red Blood Count 4.29 M/mm3 (4.2-5.4); White Blood Count 3.3 K/mm3 (4.5-10.0)
[2025-03-27 11:39] LABS: Alanine Aminotransferase 22 U/L (6-35); Albumin Level 4.4 g/dL (3.5-5.1); Alkaline Phosphatase 111 U/L (38-126); Anion Gap 7 mmol/L (4-12); Aspartate Amino Transferase 30 U/L (14-36); Bilirubin,Total 0.3 mg/dL (0.2-1.3); Blood Urea Nitrogen 14 mg/dL (7-17); CRP < 0.5 mg/dL (<1.0); Calcium 9.3 mg/dL (8.4-10.2); Carbon Dioxide 24 mmol/L (22-30); Chloride 106 mmol/L (98-107); Estimated Glomerular Filt Rate 59; Glucose 110 mg/dL (65-110); Potassium 4.4 mmol/L (3.4-5.0); Sodium 137 mmol/L (137-145); Total Protein 7.5 g/dL (6.3-8.2)
[2025-03-27 12:07] LABS: Thyroid Stimulating Hormone 1.230 uIU/mL (0.465-4.680)
[2025-03-27 12:31] LABS: Vitamin B12 346.0 pg/mL (239-931)
[2025-03-30 16:07] LABS: Deamidated Gliadin Abs, IgA 3 units (0-19); Deamidated Gliadin Abs, IgG 3 units (0-19); Immunoglobulin A, Qn 173 mg/dL (87-352)
== END 2025-03-27 10:03 | disposition home or self-care (01) ==
PROVIDERS: PCP Emergency Medicine
DX: K52.9 Noninfective gastroenteritis and colitis, unspecified (principal); K50.90 Crohn's disease, unspecified, without complications; R53.83 Other fatigue; K21.9 Gastro-esophageal reflux disease without esophagitis; R13.10 Dysphagia, unspecified; E55.9 Vitamin D deficiency, unspecified; E53.8 Deficiency of other specified B group vitamins
CPT/HCPCS: 36415; 80048; 80076; 82306; 82607; 82784; 84443; 85025; 85652; 86140; 86231; 86258